=== PATIENT | female | born 1950 | race Caucasian/White ===

== ENCOUNTER → 2016-10-31 | Outpatient (CLI) | payer BC ==
[~2016-10-31] MED LIST: GLC500 PO; HYDC25 PO; LOTRIL; SIMV5TAB2 PO
== END | disposition home or self-care (01) ==
LOC: C.PAPS 14:38
PROVIDERS: ATTEND Obstetrics & Gynecology
DX: Z01.419 Encounter for gynecological examination (general) (routine) without abnormal findings (principal)

== ENCOUNTER → 2017-04-28 | Outpatient (CLI) | payer BC ==
--- NOTE | 2017-04-29 14:57 | MAMMOGRAPHY REPORT ---
BILATERAL DIGITAL SCREENING MAMMOGRAM TOMOSYNTHESIS WITH CAD: 04/28/2017 CLINICAL HISTORY: Routine screening. TECHNIQUE: Breast tomosynthesis in addition to standard 2D mammography was performed. Current study was also evaluated with a Computer Aided Detection (CAD) system. COMPARISON: Comparison is made to exams dated: 04/25/2015 mammogram, 11/04/2013 mammogram, 10/19/2012 mammogram, 11/08/2010 mammogram - [facility], 03/24/2008, and 04/23/2009 mammogram - [facility]. BREAST COMPOSITION: There are scattered areas of fibroglandular density in both breasts. FINDINGS: There is stable asymmetry in the medial right breast. A few benign rim calcifications and mild vascular calcifications in the breasts. No suspicious mass, architectural distortion or cluster of suspicious microcalcifications is seen. IMPRESSION: ACR BI-RADS CATEGORY 1: NEGATIVE There is no mammographic evidence of malignancy. A 1 year screening mammogram is recommended. The pa tient will receive written notification of the results. Approximately 10% of breast cancers are not detected with mammography. A negative mammographic report should not delay biopsy if a clinically suggestive mass is present. Bettina Fraga M.D. ay/:04/28/2017 16:56:14 Head Of Ict: Florian FELIZ(Francisco)(Larry), [facility] letter sent: Normal 1/2 BI-RADS Code: ACR BI-RADS Category 1: Negative
== END | disposition home or self-care (01) ==
LOC: C.MAMM 10:29
PROVIDERS: ATTEND Obstetrics & Gynecology
DX: Z12.31 Encounter for screening mammogram for malignant neoplasm of breast (principal)

== ENCOUNTER 2023-06-19 08:57 | Inpatient (IN) ==
--- NOTE | 2023-06-19 09:26 | Emergency Department Note ---
Impression & Plan Acute dyspnea, ESRD (end stage renal disease), Non-ST elevation IN (NSTEMI), Elevated brain natriuretic peptide (BNP) level, Pulmonary edema ED Provider Note HISTORY OF PRESENT ILLNESS: Patient is a 72-year-old female presenting with shortness of breath. Patient reports that she woke up this morning and was very short of breath. Reports she is only able to take a few steps before she has to sit down and rest. She reports that she drove herself to the hospital and when ambulating from the parking lot to the ER door she had to stop multiple times secondary to shortness of breath. Denies any DVT or PE history. She does not wear any supplemental oxygen at home. Reports that she has not had symptoms like this previously. She has noted that her bilateral ankles appear more swollen today than normal. She has a history of CKD stage V and reports that she is probably going to need dialysis soon. She denies any recent fevers or cough. Denies any chest pain with the shortness of breath. Denies any abdominal pain, nausea or vomiting ROS: as above PHYSICAL EXAM: Constitutional: Patient appears in no acute distress. HENT: Head: Normocephalic and atraumatic. Eyes: EOMI, PERRL Mouth/Throat: Mucous membranes moist. Neck: Trachea midline. Neck supple. Cardiovascular: RRR, No murmurs, rubs or gallops. Intact distal pulses. Pulmonary/Chest: No respiratory distress. Breath sounds clear and equal bilaterally. No wheezes or rales. Abdominal: Abdomen soft, no tenderness, rebound or guarding. Musculoskeletal: No tenderness or deformity noted. Trace edema to the bilateral ankles. Skin: Warm and dry. No rash, erythema, pallor or cyanosis Psychiatric: Appropriate mood and affect for situation. Neurological: Alert and keenly responsive. CN II-XII grossly intact, moving all extremities equally and fully. MDM: - Vitals signs showed hypertension and tachypnea. - History obtained via patient. Patient presents with shortness of breath. Patient reports that she woke up this morning was very short of breath. She was only able to take a few steps before becoming very winded and having to sit down. She also noted that her lower legs were very swollen. She has a history of CKD and is supposed to be transitioning to dialysis soon. Denies any recent fevers or cough. Denies any chest pain. - Chronic conditions affecting care: CKD; HTN; DM-2; anemia due to chronic kidney disease - Differential diagnoses include, but are not limited to: Congestive heart failure; acute coronary syndrome; COPD/asthma exacerbation; pulmonary edema; pulmonary embolism; pneumonia; pneumothorax; viral syndrome - Order placed for continuous cardiac monitoring. At this time, monitor showed rate of 66 bpm with normal sinus rhythm, per my interpretation. - External medical records reviewed. Nephrology visit note dated 05/20/2023 was reviewed. Patient is stage V CKD. She was started on sodium bicarb twice daily. No acute indication to start dialysis at that time. Plan for repeat CBC and renal panel in a month. - EKG interpreted by myself showed normal sinus rhythm. Rate 63 bpm. QT 442. No acute ischemic changes. - Laboratory workup interpreted by myself showed normal WBC; stable electrolytes; elevated anion gap (14); elevated BUN (62); worsening creatinine (Cr 6.85); elevated troponin (32.6 - likely in setting of ESRD); elevated BNP (1149) - VBG grossly normal - CXR showed evidence of pulmonary edema, per my interpretation - Respiratory viral panel negative - Discussed case with chairman of the board on-call, Dr. Bragg at 11:52 AM, given patient's worsening laboratory workup and presenting symptom of shortness of breath in the setting of fluid overload. He came and evaluated the patient and recommends admission to hospitalist service and has placed orders for hemodialysis for today. - Discussion was had with childcare aide about patient's case and need for admission - Hospitalist consulted for admission - Patient admitted to [facility] hospitalist service for further evaluation and management. ASSESSMENT AND PLAN: Diagnosis: Acute dyspnea; ESRD; elevated BNP; NSTEMI; pulmonary edema Plan: admit Past Med/Surg History Medical History (Updated 06/19/23 @ 12:44 by Cassi Beaver MD) Stage 5 chronic kidney disease not on chronic dialysis AV fistula right arm--per pt not currently using yet Periodontal pocket Carious teeth Vitamin D deficiency Anemia due to chronic kidney disease Sleep apnea Per 2009 polysomnography (per 02/2021 pulmonology note)- pt declined treatment or repeat study-NO DEVICE Diastolic CHF Anxiety Associated dyspnea per pulmonology Insulin-requiring or dependent type II diabetes mellitus Obesity Chronic kidney disease, stage 4 (severe) Secondary hyperparathyroidism of renal origin History of DVT (deep vein thrombosis) Multiple "small" DVTs (25+ years ago, 6 years ago) Fibroids Gout History of hypothyroidism HX-NO MEDS Hypercholesterolemia Hypertension Sensorineural hearing loss (SNHL) of both ears Surgical History S/P arteriovenous (AV) fistula creation RIGHT arm 03/27/21 @ [facility] Dr. Subramanian History of dental surgery History of surgery on arm Right Arm basilic vein transposition 2nd stage @ [facility] Dr. Subramanian 06/10/21 History of colonoscopy Family History Mother Diabetes Renal cell cancer Heart disease Colorectal cancer Hypertension Brother Diabetes Renal cell cancer Heart disease Lung cancer Hypertension Gallbladder disease Father Prostate cancer Heart disease Hypertension Grandmother (Maternal) Colorectal cancer Aunt Diabetes Other Alzheimer disease No family history of adverse response to anesthesia Denies family history of Ovarian cancer Myocardial infarction Breast cancer Social History Smoking Status: Never smoker Second Hand Exposure: No; Do You Dip or Chew Tobacco: No; Hx Alcohol Use: Yes Alcohol type: wine Alcohol Intake Frequency: Monthly or Less Hx Substance Use: No Preferred Language: Hong Konger Communication Ability: Effective Visual Impairment: Limited Hearing Ability: Hard of Hearing Job Spotter Required: No Beliefs That Will Affect Care: None marital status: Single Current Living Situation: Alone current occupational status: 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 How many Children do You have: 0 Feels Safe at Home: Yes Childhood Exposure to Second-Hand Smoke: No (very little ) Diet: diabetic caffeine: Yes (drinks iced tea every day, sometimes soda ) Dental Care, Regularly: Yes Physical Activity Frequency: 1-2 Times per Week Physical Activity Frequency Comment: weight training, walking Seatbelt Use: always Sunscreen Use: Yes (most times ) Assistive Devices: Glasses Allergies Allergies Allergy/AdvReac Type Severity Reaction Status Date / Time insect venom Allergy Intermediate Swelling Verified 06/19/23 11:57 adhesive tape Allergy Mild Rash Verified 06/19/23 11:57 dulaglutide [From Trulicity] AdvReac Mild Constipation, Verified 06/19/23 11:57 vomiting Home Meds Home Medications Medication Instructions Recorded Confirmed lancets (Accu-Chek Fastclix Lancet #50 ea 12/16/18 05/20/23 Drum) aspirin 81 mg chewable tablet 81 mg PO QAM 11/07/19 06/19/23 mecobalamin (vitamin B12) 1,000 1,000 mcg PO QAM 09/13/20 06/19/23 mcg chewable tablet (B12 Active) blood sugar diagnostic (Accu-Chek 10/15/21 05/20/23 SmartView Test Strips) cholecalciferol (vitamin D3) 62.5 62.5 mcg PO HS 06/06/22 06/19/23 mcg (2,500 unit) capsule insulin aspart U-100 100 unit/mL 14 unit subcut QAM PRN bg LEVELS 03/10/23 06/19/23 (3 mL) subcutaneous pen (Novolog FlexPen U-100 Insulin aspart) buspirone 7.5 mg tablet 7.5 mg PO DAILY PRN anxiety 06/19/23 06/19/23 calcitriol 0.5 mcg capsule 0 mcg PO DAILY 06/19/23 06/19/23 ferrous gluconate 324 mg (38 mg 324 mg PO BID 06/19/23 06/19/23 iron) tablet insulin degludec 100 unit/mL (3 8 - 14 unit subcut .BIDAFTERMEALS 06/19/23 06/19/23 mL) subcutaneous pen (Tresiba PRN BG levels FlexTouch U-100 insulin) sevelamer HCl 800 mg tablet 0 mg PO TID 06/19/23 06/19/23 triamcinolone acetonide 0.1 % 1 applic topical DAILY 06/19/23 06/19/23 topical ointment Previous Rx's Medication Instructions Recorded pen needle, diabetic 32 gauge x #100 ea 09/13/20" (BD Ultra-Fine Nicki Pen Needle) FreeStyle Kvng 2 Aydlett (flash #1 ea 10/18/20 glucose scanning reader) metoprolol succinate 50 mg 50 mg PO QAM #90 tabs 07/22/22 tablet,extended release 24 hr flash glucose sensor (FreeStyle #2 ea 12/16/22 Kvng 2 Sensor kit) sodium bicarbonate 650 mg tablet 650 mg PO BID #60 tabs 04/10/23 amlodipine 10 mg tablet 10 mg PO QAM #90 tabs 06/16/23 hydralazine 25 mg tablet 25 mg PO BID #180 tabs 06/16/23 metoprolol succinate 100 mg 100 mg PO QAM #90 tabs 06/16/23 tablet,extended release 24 hr simvastatin 20 mg tablet 20 mg PO QPM #90 tabs 06/19/23 Results & Data (ED) Vital Signs Vital Signs - 24 hr 06/19/23 09:01 06/19/23 09:12 06/19/23 09:23 Temperature 36.4 C L Temperature Source Temporal Artery Scan Pulse Rate 66 62 Pulse Rate from SpO2 Sensor 63 Respiratory Rate 32 H 19 Respiratory Effort / Characteristics Spontaneous Blood Pressure 180/85 H Blood Pressure Mean 116 Pulse Oximetry 99 97 98 Oxygen Delivery Method Room Air Room Air Sepsis Recent Fever Within 48 Hours No Sepsis New/Unexplained Change in Mental Status N/A Sepsis Action Taken by Nursing No Action Required 06/19/23 09:30 06/19/23 09:38 06/19/23 09:41 Temperature Temperature Source Pulse Rate 64 64 Pulse Rate from SpO2 Sensor 63 Respiratory Rate 26 H Respiratory Effort / Characteristics Blood Pressure Blood Pressure Mean Pulse Oximetry 97 96 Oxygen Delivery Method Room Air Sepsis Recent Fever Within 48 Hours Sepsis New/Unexplained Change in Mental Status Sepsis Action Taken by Nursing 06/19/23 10:00 06/19/23 10:30 06/19/23 11:00 Temperature Temperature Source Pulse Rate 60 60 61 Pulse Rate from SpO2 Sensor 60 60 62 Respiratory Rate 18 22 24 Respiratory Effort / Characteristics Blood Pressure Blood Pressure Mean Pulse Oximetry 94 94 93 Oxygen Delivery Method Room Air Sepsis Recent Fever Within 48 Hours Sepsis New/Unexplained Change in Mental Status Sepsis Action Taken by Nursing 06/19/23 11:16 06/19/23 11:16 06/19/23 11:17 Temperature Temperature Source Pulse Rate 65 Pulse Rate from SpO2 Sensor Respiratory Rate 28 H Respiratory Effort / Characteristics Blood Pressure 169/119 H 187/105 H Blood Pressure Mean 138 149 Pulse Oximetry Oxygen Delivery Method Sepsis Recent Fever Within 48 Hours Sepsis New/Unexplained Change in Mental Status Sepsis Action Taken by Nursing 06/19/23 11:17 06/19/23 11:30 06/19/23 11:31 Temperature Temperature Source Pulse Rate 66 64 Pulse Rate from SpO2 Sensor Respiratory Rate 32 H 30 H Respiratory Effort / Characteristics Blood Pressure 193/66 H Blood Pressure Mean 111 Pulse Oximetry Oxygen Delivery Method Sepsis Recent Fever Within 48 Hours Sepsis New/Unexplained Change in Mental Status Sepsis Action Taken by Nursing 06/19/23 11:31 06/19/23 12:00 06/19/23 12:00 Temperature Temperature Source Pulse Rate 65 64 Pulse Rate from SpO2 Sensor Respiratory Rate 25 H 32 H Respiratory Effort / Characteristics Blood Pressure 181/108 H Blood Pressure Mean 139 Pulse Oximetry Oxygen Delivery Method Sepsis Recent Fever Within 48 Hours Sepsis New/Unexplained Change in Mental Status Sepsis Action Taken by Nursing 06/19/23 12:30 06/19/23 12:31 06/19/23 12:31 Temperature Temperature Source Pulse Rate 63 66 Pulse Rate from SpO2 Sensor 72 Respiratory Rate 30 H 21 Respiratory Effort / Characteristics Blood Pressure 166/63 H Blood Pressure Mean 90 Pulse Oximetry 93 Oxygen Delivery Method Room Air Sepsis Recent Fever Within 48 Hours Sepsis New/Unexplained Change in Mental Status Sepsis Action Taken by Nursing Laboratory Data 06/19/23 09:35 06/19/23 09:35 Lab Results 06/19/23 06/19/23 06/19/23 Range/Units 09:35 10:23 10:29 WBC 6.59 (4.8-10.8) K/ul RBC 2.90 L (4.20-5.40) M/uL Hgb 9.0 L (12.0-16.0) g/dl Hct 27.3 L (37.0-47.0) % MCV 94.1 (80.0-100.0) fL MCH 31.0 (25.0-34.0) pg MCHC 33.0 (32.0-36.0) g/dL RDW Std Deviation 43.7 (36.4-46.3) fL RDW Coeff of Poornima 12.7 (11.5-14.5) % Plt Count 280 (130-400) K/uL MPV 11.7 (9.4-12.4) fL Immature Gran % (Auto) 0.5 % Neut % (Auto) 71.5 % Lymph % (Auto) 15.2 % [place] % (Auto) 7.6 % Eos % (Auto) 4.1 % Baso % (Auto) 1.1 % Neut # (Auto) 4.72 (1.40-6.50) K/uL Lymph # (Auto) 1.00 L (1.20-3.40) K/uL [place] # (Auto) 0.50 (0.11-0.59) K/uL Eos # (Auto) 0.27 (0.00-0.50) K/uL Baso # (Auto) 0.07 (0.00-0.20) K/uL Immature Gran # (Auto) 0.03 (0.01-0.20) K/uL PT 10.7 (9.0-12.0) Seconds INR 1.0 (0.9-1.1) VBG pH 7.37 (7.36-7.41) VBG pCO2 36 L (38-50) mmHg VBG pO2 50 mmHg VBG HCO3 21 mmol/L VBG O2 Saturation 84.8 % VBG Base Excess -3.9 mEq/L Sodium 140 (136-145) mmol/L Potassium 3.6 (3.5-5.1) mmol/L Chloride 106 (98-107) mmol/L Carbon Dioxide 20 L (21-32) mmol/L Anion Gap 14 H (3-11) BUN 62 H (6-23) mg/dl Creatinine 6.85 H* (0.6-1.2) mg/dl Est Cr Clr Drug Dosing 7.4 ml/min Est GFR ( Amer) 6.3 ml/min Est GFR (Non-Af Amer) 5.4 ml/min BUN/Creatinine Ratio 9.1 L (10-20) Glucose 202 H (70-99(Fasting)) mg/dl Calcium 10.5 H (8.6-10.3) mg/dl Magnesium 2.2 (1.7-2.4) mg/dl Total Bilirubin 0.5 (0.2-1.0) mg/dl AST 10 L (13-39) U/L ALT 6 L (7-52) U/L Alkaline Phosphatase 51 (34-104) U/L Troponin I High Sens 32.6 H (0-14) pg/ml B-Natriuretic Peptide 1149 H (0-100) pg/ml Total Protein 7.0 (6.0-8.3) gm/dl Albumin 3.7 (3.4-5.0) gm/dl Globulin 3.3 (2.5-4.0) gm/dl Albumin/Globulin Ratio 1.1 (0.9-2) Adenovirus (PCR) Not Detected (NotDetected) B. pertussis DNA (PCR) Not Detected (NotDetected) B.parapertussis DNA PCR Not Detected (NotDetected) C. pneumoniae DNA (PCR) Not Detected (NotDetected) Coronavirus OC43 (PCR) Not Detected (NotDetected) Coronavirus HKU1 (PCR) Not Detected (NotDetected) Coronavirus 229E (PCR) Not Detected (NotDetected) SARS-CoV-2 (PCR) Not Detected (NotDetected) Coronavirus NL63 (PCR) Not Detected (NotDetected) Human Metapneumovir PCR Not Detected (NotDetected) Influenza Type A (PCR) Not Detected (NotDetected) Influenza Type B (PCR) Not Detected (NotDetected) M. pneumoniae (PCR) Not Detected (NotDetected) Parainfluenza 1 (PCR) Not Detected (NotDetected) Parainfluenza 2 (PCR) Not Detected (NotDetected) Parainfluenza 3 (PCR) Not Detected (NotDetected) Parainfluenza 4 (PCR) Not Detected (NotDetected) RSV (PCR) Not Detected (NotDetected) Entero/Rhino (PCR) Not Detected (NotDetected) 06/19/23 Range/Units 11:55 WBC (4.8-10.8) K/ul RBC (4.20-5.40) M/uL Hgb (12.0-16.0) g/dl Hct (37.0-47.0) % MCV (80.0-100.0) fL MCH (25.0-34.0) pg MCHC (32.0-36.0) g/dL RDW Std Deviation (36.4-46.3) fL RDW Coeff of Poornima (11.5-14.5) % Plt Count (130-400) K/uL MPV (9.4-12.4) fL Immature Gran % (Auto) % Neut % (Auto) % Lymph % (Auto) % [place] % (Auto) % Eos % (Auto) % Baso % (Auto) % Neut # (Auto) (1.40-6.50) K/uL Lymph # (Auto) (1.20-3.40) K/uL [place] # (Auto) (0.11-0.59) K/uL Eos # (Auto) (0.00-0.50) K/uL Baso # (Auto) (0.00-0.20) K/uL Immature Gran # (Auto) (0.01-0.20) K/uL PT (9.0-12.0) Seconds INR (0.9-1.1) VBG pH (7.36-7.41) VBG pCO2 (38-50) mmHg VBG pO2 mmHg VBG HCO3 mmol/L VBG O2 Saturation % VBG Base Excess mEq/L Sodium (136-145) mmol/L Potassium (3.5-5.1) mmol/L Chloride (98-107) mmol/L Carbon Dioxide (21-32) mmol/L Anion Gap (3-11) BUN (6-23) mg/dl Creatinine (0.6-1.2) mg/dl Est Cr Clr Drug Dosing ml/min Est GFR ( Amer) ml/min Est GFR (Non-Af Amer) ml/min BUN/Creatinine Ratio (10-20) Glucose (70-99(Fasting)) mg/dl Calcium (8.6-10.3) mg/dl Magnesium (1.7-2.4) mg/dl Total Bilirubin (0.2-1.0) mg/dl AST (13-39) U/L ALT (7-52) U/L Alkaline Phosphatase (34-104) U/L Troponin I High Sens 32.5 H (0-14) pg/ml B-Natriuretic Peptide (0-100) pg/ml Total Protein (6.0-8.3) gm/dl Albumin (3.4-5.0) gm/dl Globulin (2.5-4.0) gm/dl Albumin/Globulin Ratio (0.9-2) Adenovirus (PCR) (NotDetected) B. pertussis DNA (PCR) (NotDetected) B.parapertussis DNA PCR (NotDetected) C. pneumoniae DNA (PCR) (NotDetected) Coronavirus OC43 (PCR) (NotDetected) Coronavirus HKU1 (PCR) (NotDetected) Coronavirus 229E (PCR) (NotDetected) SARS-CoV-2 (PCR) (NotDetected) Coronavirus NL63 (PCR) (NotDetected) Human Metapneumovir PCR (NotDetected) Influenza Type A (PCR) (NotDetected) Influenza Type B (PCR) (NotDetected) M. pneumoniae (PCR) (NotDetected) Parainfluenza 1 (PCR) (NotDetected) Parainfluenza 2 (PCR) (NotDetected) Parainfluenza 3 (PCR) (NotDetected) Parainfluenza 4 (PCR) (NotDetected) RSV (PCR) (NotDetected) Entero/Rhino (PCR) (NotDetected) Imaging Data Radiologist's Impression: Chest X-Ray 06/19/23 09:13 XR chest 1V portable HISTORY: Dyspnea COMPARISON: Chest 01/07/2021. FINDINGS: No pneumothorax. The heart is mildly enlarged. There are low lung volumes. There is perihilar interstitial/vascular thickening suggestive of mild pulmonary edema. There is a trace right pleural effusion. Small patchy bibasilar densities are suggested. IMPRESSION: 1. Cardiomegaly with mild interstitial pulmonary edema and a trace right pleural effusion. 2. Small patchy bibasilar densities favor atelectasis. A superimposed pneumonia would be difficult to exclude. ACT 112: Negative or not required by law. Electronically signed by: David Solorzano M.D. 06/19/2023 10:13 AM Discharge Plan Visit Data Chief Complaint: Shortness of Breath/Dyspnea Stated Complaint: HYPERVENTALATING, RENAL DISEASE ED Provider: Cassi Beaver Discharge Problem: Acute dyspnea, ESRD (end stage renal disease), Non-ST elevation IN (NSTEMI), Elevated brain natriuretic peptide (BNP) level, Pulmonary edema Forms Stand Alone Forms: [facility] Prescriptions Prescriptions: No Action (DME) FreeStyle Kvng 2 Aydlett Misc See Rx Instructions .ROUTE .MEDSUPPLY Qty: 1 0RF Rx Instructions: Use to monitor blood sugars daily (DME) FreeStyle Kvng 2 Sensor Kit See Rx Instructions miscellaneous .MEDSUPPLY Qty: 2 11RF Rx Instructions: Change every 14 days. sodium bicarbonate 650 mg tablet 650 mg PO BID Qty: 60 3RF hydralazine 25 mg tablet 25 mg PO BID Qty: 180 3RF amlodipine 10 mg tablet 10 mg PO QAM Qty: 90 3RF metoprolol succinate 100 mg tablet extended release 24 hr 100 mg PO QAM Qty: 90 3RF Rx Instructions: in addition to 50mg for a total of 150mg daily simvastatin 20 mg tablet 20 mg PO QPM Qty: 90 3RF insulin aspart U-100 [Novolog FlexPen U-100 Insulin] 100 unit/mL (3 mL) insulin pen 14 unit subcut QAM PRN (Reason: bg LEVELS) metoprolol succinate 50 mg tablet extended release 24 hr 50 mg PO QAM Qty: 90 3RF Rx Instructions: TAKE 1 TABLET BY MOUTH EVERY DAY with 100mg dose for total of 150mg cholecalciferol (vitamin D3) 62.5 mcg (2,500 unit) capsule 62.5 mcg PO HS B12 Active 1,000 mcg tablet,chewable 1,000 mcg PO QAM (DME) pen needle, diabetic [BD Ultra-Fine Nicki Pen Needle] 32 gauge x 5/32" needle See Rx Instructions miscellaneous .MEDSUPPLY Qty: 100 5RF Rx Instructions: Use to inject daily (DME) lancets [Accu-Chek Fastclix Lancet Drum] misc See Dose Instructions .ROUTE .MEDSUPPLY Qty: 50 Rx Instructions: As directed aspirin 81 mg tablet,chewable 81 mg PO QAM (DME) Accu-Chek SmartView Test Strip Strip See Rx Instructions .ROUTE .MEDSUPPLY Dose Instruction: As directed Rx Instructions: USE 1 TEST STRIP DAILY PRN calcitriol 0.5 mcg capsule 0 mcg PO DAILY Rx Instructions: Per patient they are now taking 0.5mcg by mouth once daily, PCP is aware. triamcinolone acetonide 0.1 % ointment 1 applic TOPICAL DAILY sevelamer HCl 800 mg tablet 0 mg PO TID Rx Instructions: must administer with a meal/food. Per patient, she hasn't started this medication yet. Original directions. 800mg by mouth TID w/ meals buspirone 7.5 mg tablet 7.5 mg PO DAILY PRN (Reason: anxiety) ferrous gluconate 324 mg (38 mg iron) tablet 324 mg PO BID insulin degludec [Tresiba FlexTouch U-100] 100 unit/mL (3 mL) insulin pen 8 - 14 unit subcut .BIDAFTERMEALS PRN (Reason: BG levels) Referrals Referrals: Unruly Trujillo DO [Primary Care Provider] -
[2023-06-19 10:03] LABS: Basophils # (auto) 0.07 K/uL (0.00-0.20); Basophils % (auto) 1.1 %; Eosinophils # (auto) 0.27 K/uL (0.00-0.50); Eosinophils % (auto) 4.1 %; Hematocrit (blood only) 27.3 % (37.0-47.0); Immature Granulocytes # (auto) 0.03 K/uL (0.01-0.20); Immature Granulocytes % (auto) 0.5 %; Lymphocytes % (auto) 15.2 %; Mean Corpuscular Volume 94.1 fL (80.0-100.0); Mean Platelet Volume 11.7 fL (9.4-12.4); Monocytes % (auto) 7.6 %; Neutrophils # (auto) 4.72 K/uL (1.40-6.50); Neutrophils % (auto) 71.5 %; Platelet Count 280 K/uL (130-400); RDW Coefficient of Variation 12.7 % (11.5-14.5); RDW Standard Deviation 43.7 fL (36.4-46.3); White Blood Count 6.59 K/ul (4.8-10.8)
[2023-06-19 10:14] LABS: Albumin Globulin Ratio 1.1 (0.9-2); Albumin Level 3.7 gm/dl (3.4-5.0); BUN Creatinine Ratio 9.1 (10-20); Bilirubin,Total 0.5 mg/dl (0.2-1.0); Calcium 10.5 mg/dl (8.6-10.3); Creatinine Clr Calc Pharmacy 7.4 ml/min; Est GFR (African American) 6.3 ml/min; Est GFR (Non-African American) 5.4 ml/min; Globulin 3.3 gm/dl (2.5-4.0); Magnesium 2.2 mg/dl (1.7-2.4); Potassium 3.6 mmol/L (3.5-5.1)
--- NOTE | 2023-06-19 10:15 | XRay Report ---
XR chest 1V portable HISTORY: Dyspnea COMPARISON: Chest 01/07/2021. FINDINGS: No pneumothorax. The heart is mildly enlarged. There are low lung volumes. There is perihil ar interstitial/vascular thickening suggestive of mild pulmonary edema. There is a trace right pleura l effusion. Small patchy bibasilar densities are suggested. IMPRESSION: 1. Cardiomegaly with mild interstitial pulmonary edema and a trace right pleural effusion. 2. Small patchy bibasilar densities favor atelectasis. A superimposed pneumonia would be difficult to exclude. ACT 112: Negative or not required by law. Electronically signed by: David Solorzano M.D. 06/19/2023 10:13 AM
[2023-06-19 10:19] LABS: Troponin I High Sensitivity 32.6 pg/ml (0-14)
[2023-06-19 10:23] LABS: Prothrombin Time 10.7 Seconds (9.0-12.0)
[2023-06-19 10:37] LABS: Adenovirus PCR Not Detected (NotDetected); Bordetella parapertussis PCR Not Detected (NotDetected); Bordetella pertussis PCR Not Detected (NotDetected); Chlamydia pneumoniae PCR Not Detected (NotDetected); Coronavirus 229E PCR Not Detected (NotDetected); Coronavirus CoV-2 (COVID19)PCR Not Detected (NotDetected); Coronavirus HKU1 PCR Not Detected (NotDetected); Coronavirus NL63 PCR Not Detected (NotDetected); Coronavirus OC43PCR Not Detected (NotDetected); Human Metapneumovirus PCR Not Detected (NotDetected); Influenza A PCR Not Detected (NotDetected); Influenza B PCR Not Detected (NotDetected); Mycoplasma pneumoniae PCR Not Detected (NotDetected); Parainfluenza Virus 1 PCR Not Detected (NotDetected); Parainfluenza Virus 2 PCR Not Detected (NotDetected); Parainfluenza Virus 3 PCR Not Detected (NotDetected); Parainfluenza Virus 4 PCR Not Detected (NotDetected); Respiratory Syncytial VirusPCR Not Detected (NotDetected); Rhinovirus/Enterovirus PCR Not Detected (NotDetected)
[2023-06-19 10:52] LABS: Base Excess VBG -3.9 mEq/L; HCO3 VBG 21 mmol/L; Oxygen Saturation VBG 84.8 %; PCO2 VBG 36 mmHg (38-50); PO2 VBG 50 mmHg; pH VBG 7.37 (7.36-7.41)
[2023-06-19] MEDS ORDERED: GLUCOSE 40% GEL 15 GM TUBE PO PRN (12:57)
[2023-06-19] MEDS ORDERED: ACETAMINOPHEN 325 MG TAB PO PRN (12:57)
[2023-06-19] MEDS ORDERED: DEXTROSE 50% 50 ML SYRINGE IV PRN (12:57)
[2023-06-19] MEDS ORDERED: GLUCOSE 10 TAB/TUBE PO PRN (12:57)
[2023-06-19] MEDS ORDERED: CARBOHYDRATES FOR HYPOGLYCEMIA PO PRN (12:57)
[2023-06-19] MEDS ORDERED: GLUCAGON FOR INJ 1 MG VIAL SQ PRN (12:57)
--- NOTE | 2023-06-19 13:20 | History & Physical Report ---
Date of Service June 19, 2023 Assessment & Plan (1) Acute kidney failure: Plan Assessment: 1. Acute kidney injury in the setting of CKD stage V now progressing to end- stage renal disease. Nephrology been consulted. Initiation of hemodialysis to take place this afternoon orders have been written by nephrology we appreciate their input. 2. Volume overload on the basis of end-stage renal disease with bilateral small pleural effusions with pulmonary edema. Hemodialysis will address volume control. 3. Diabetes mellitus type 2 insulin requiring sliding scale coverage has been ordered as well as the basal insulin she is on at home twice daily which we will continue at a lower dose and titrate as needed for glycemic control. 4. Morbid obesity. 5. Dyslipidemia. 6. Obstructive sleep apnea currently not treated. 7. History of DVT 25 years ago. DVT prophylaxis has been ordered both mechanical and chemical in the form of heparin SQ twice daily. 8. Essential hypertension continue continue same home meds. 9. Dyslipidemia continue statin therapy from home Plan: As described above. Please refer to orders for further planning. I would anticipate probable daily dialysis for several treatments and then transition to 3 times weekly prior to discharge. History of Present Illness Chief Complaint: Increasing shortness of breath and edema. Primary Care Provider: Unruly Trujillo DO This is a pleasant 72-year-old female with stage V kidney disease who has been approaching end-stage renal disease. Over the last 24 hours she has had increasing shortness of breath and edema in her lower extremities. She presented the ER today for further evaluation and treatment. In the ER she found to have a worsening BUN and creat at 62 and 6.85 respectively with a normal potassium of 3.6. EKG was reassuring troponins were negative x 2. Chest x-ray showed worsening pulmonary edema with dependent small bilateral pleural effusions. Course in the ER consultation was obtained with her manager urology who evaluated the patient in the ER and plans to initiate hemodialysis later this afternoon via her right AV fistula which has been previously placed. Allergies Allergy/AdvReac Type Severity Reaction Status Date / Time insect venom Allergy Intermediate Swelling Verified 06/19/23 11:57 adhesive tape Allergy Mild Rash Verified 06/19/23 11:57 [facility] AdvReac Mild Constipation, Verified 06/19/23 11:57 vomiting Home Medications Medication Instructions Recorded Confirmed Type lancets (Accu-Chek Fastclix Lancet #50 ea 12/16/18 05/20/23 History Drum) aspirin 81 mg chewable tablet 81 mg PO QAM 11/07/19 06/19/23 History mecobalamin (vitamin B12) 1,000 1,000 mcg PO QAM 09/13/20 06/19/23 History mcg chewable tablet (B12 Active) pen needle, diabetic 32 gauge x #100 ea 09/13/20 05/20/23 Rx 32" (BD Ultra-Fine Nicki Pen Needle) FreeStyle Kvng 2 [place] (flash #1 ea 10/18/20 05/20/23 Rx glucose scanning reader) blood sugar diagnostic (Accu-Chek 10/15/21 05/20/23 History SmartView Test Strips) cholecalciferol (vitamin D3) 62.5 62.5 mcg PO HS 06/06/22 06/19/23 History mcg (2,500 unit) capsule metoprolol succinate 50 mg 50 mg PO QAM #90 tabs 07/22/22 06/19/23 Rx tablet,extended release 24 hr flash glucose sensor (FreeStyle #2 ea 12/16/22 05/20/23 Rx Kvng 2 Sensor kit) insulin aspart U-100 100 unit/mL 14 unit subcut QAM PRN bg LEVELS 03/10/23 06/19/23 History (3 mL) subcutaneous pen (Novolog FlexPen U-100 Insulin aspart) sodium bicarbonate 650 mg tablet 650 mg PO BID #60 tabs 04/10/23 06/19/23 Rx amlodipine 10 mg tablet 10 mg PO QAM #90 tabs 06/16/23 06/19/23 Rx hydralazine 25 mg tablet 25 mg PO BID #180 tabs 06/16/23 06/19/23 Rx metoprolol succinate 100 mg 100 mg PO QAM #90 tabs 06/16/23 06/19/23 Rx tablet,extended release 24 hr buspirone 7.5 mg tablet 7.5 mg PO DAILY PRN anxiety 06/19/23 06/19/23 History calcitriol 0.5 mcg capsule 0 mcg PO DAILY 06/19/23 06/19/23 History ferrous gluconate 324 mg (38 mg 324 mg PO BID 06/19/23 06/19/23 History iron) tablet insulin degludec 100 unit/mL (3 8 - 14 unit subcut .BIDAFTERMEALS 06/19/23 History mL) subcutaneous pen (Tresiba PRN BG levels FlexTouch U-100 insulin) sevelamer HCl 800 mg tablet 0 mg PO TID 06/19/23 06/19/23 History simvastatin 20 mg tablet 20 mg PO QPM #90 tabs 06/19/23 06/19/23 Rx triamcinolone acetonide 0.1 % 1 applic topical DAILY 06/19/23 06/19/23 History topical ointment Past Med/Surg History Medical History (Updated 06/19/23 @ 13:16 by Trent Summers, PhD, DO) Stage 5 chronic kidney disease not on chronic dialysis AV fistula right arm--per pt not currently using yet Periodontal pocket Carious teeth Vitamin D deficiency Anemia due to chronic kidney disease Sleep apnea Per 2009 polysomnography (per 02/2021 pulmonology note)- pt declined treatment or repeat study-NO DEVICE Diastolic CHF Anxiety Associated dyspnea per pulmonology Insulin-requiring or dependent type II diabetes mellitus Obesity Chronic kidney disease, stage 4 (severe) Secondary hyperparathyroidism of renal origin History of DVT (deep vein thrombosis) Multiple "small" DVTs (25+ years ago, 6 years ago) Fibroids Gout History of hypothyroidism HX-NO MEDS Hypercholesterolemia Hypertension Sensorineural hearing loss (SNHL) of both ears Surgical History S/P arteriovenous (AV) fistula creation RIGHT arm 03/27/21 @ [facility]. Subramanian History of dental surgery History of surgery on arm Right Arm basilic vein transposition 2nd stage @ [facility] Dr. Subramanian 06/10/21 History of colonoscopy Family History Mother Diabetes Renal cell cancer Heart disease Colorectal cancer Hypertension Brother Diabetes Renal cell cancer Heart disease Lung cancer Hypertension Gallbladder disease Father Prostate cancer Heart disease Hypertension Grandmother (Maternal) Colorectal cancer Aunt Diabetes Other Alzheimer disease No family history of adverse response to anesthesia Denies family history of Ovarian cancer Myocardial infarction Breast cancer Social History Smoking Status: Never smoker Second Hand Exposure: No; Do You Dip or Chew Tobacco: No; Hx Alcohol Use: Yes Alcohol type: wine Alcohol Intake Frequency: Monthly or Less Hx Substance Use: No Preferred Language: Scottish Communication Ability: Effective Visual Impairment: Limited Hearing Ability: Hard of Hearing Designated Broker Required: No Beliefs That Will Affect Care: None marital status: Single Current Living Situation: Alone current occupational status: retired 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 How many Children do You have: 0 Feels Safe at Home: Yes Childhood Exposure to Second-Hand Smoke: No (very little ) Diet: diabetic caffeine: Yes (drinks iced tea every day, sometimes soda ) Dental Care, Regularly: Yes Physical Activity Frequency: 1-2 Times per Week Physical Activity Frequency Comment: weight training, walking Seatbelt Use: always Sunscreen Use: Yes (most times ) Assistive Devices: Glasses Review of Systems Review of Systems: A 10 point review of system was obtained and unless otherwise stated here or in history of present illness are negative and noncontributory to chief complaint. Physical Exam Physical Exam: In General: In general pleasant 72-year-old female who is alert and oriented x 3 at time my exam she interacts appropriately and pleasantly at the time of my examination. 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 She lives at home alone and has no children her brother is her next of kin that would speak for her in case of medical emergency etc. HEENT: Normocephalic atraumatic pupils are equal round and reactive to light bilaterally. No scleral icterus no conjunctival injection external auditory canals are patent septum is in the midline nose is without discharge oral mucosa is pink and moist without lesion. NECK: Supple no rigidity no lymphadenopathy no thyromegaly no carotid bruits no JVD no masses. HEART: Regular rate and rhythm I do not appreciate any ectopy or rub. No murmur. LUNGS: Fine rales bilaterally with diminished breath sounds in the bases. ABDOMEN: Obese, soft nontender, no rebound, no peritoneal signs, positive bowel sounds, no appreciable organomegaly. EXTREMITIES: Intact, no peripheral cyanosis, clubbing. There is bilateral dependent edema approximately 1-2+. Strength is 5 out of 5 in extremities x4, no pathological reflexes. AV fistula noted in the right upper extremity with good palpable thrill NEUROLOGICAL: Cranial nerves II through XII are grossly intact with no focal deficit elicited upon examination. No tremor. Results & Data Results & Data Vital Signs (Past 12 Hours) Vital Signs Temp Pulse Resp BP Pulse Ox O2 Del Method 06/19/23 12:31 66 21 93 Room Air 06/19/23 12:31 166/63 H 06/19/23 12:30 63 30 H 06/19/23 12:00 181/108 H 06/19/23 12:00 64 32 H 06/19/23 11:31 65 25 H 06/19/23 11:31 193/66 H 06/19/23 11:30 64 30 H 06/19/23 11:17 66 32 H 06/19/23 11:17 187/105 H 06/19/23 11:16 169/119 H 06/19/23 11:16 65 28 H 06/19/23 11:00 61 24 93 Room Air 06/19/23 10:30 60 22 94 06/19/23 10:00 60 18 94 06/19/23 09:41 96 Room Air 06/19/23 09:38 64 06/19/23 09:30 64 26 H 97 06/19/23 09:23 62 19 98 06/19/23 09:12 97 Room Air 06/19/23 09:01 36.4 C L 66 32 H 180/85 H 99 Room Air Code Status & VTE Plan Code Status Full code. I did discuss personally with the patient today and again she would want her younger brother Unruly to make decisions for her if she is unable to speak for herself. VTE Prophylaxis Plan VTE Prophylaxis will be ordered: Yes PG Care Time/CCT Total # of Minutes Spent Total Time Spent with Patient: Total time spent is greater than 50% in coordination of care (as documented) at patient's floor/unit and/or counseling patient: Coding Level of Care Code 48964 INT INP/OBS CARE 3/75MIN Diagnoses Acute kidney failure N17.9
--- NOTE | 2023-06-19 16:47 | Electrocardiogram Report ---
Test Reason : Blood Pressure : / mmHG Vent. Rate : 063 BPM Atrial Rate : 000 BPM P-R Int : 000 ms QRS Dur : 096 ms QT Int : 442 ms P-R-T Axes : 000 000 069 degrees QTc Int : 452 ms Sinus rhythm Nonspecific ST and T wave abnormality Abnormal ECG When compared with ECG of 07-JAN-2021 08:02, T wave inversion now evident in Lateral leads Confirmed by Jeyson Walton ([id number]) on 06/19/2023 4:47:07 PM Referred By: REFERRED SELF Confirmed By:Jorge Walton
--- NOTE | 2023-06-19 17:17 | Nephrology Consultation ---
Date of Consultation June 19, 2023 Assessment & Plan (1) ESRD (end stage renal disease): (2) Pulmonary edema: (3) Elevated brain natriuretic peptide (BNP) level: (4) Type 2 diabetes mellitus with obesity: Plan Discussed physical exam, laboratory and radiographic findings w/ Miss Guthrie this afternoon. She was aware of her advanced kidney dysfunction and agreeable to initiation of HD. AVF appeared to be mature for use. Orders were placed in EMR and HD RN notified. EMD physician notified of POC and has arranged hospitalist service to admit patient. Miss Guthrie and I also discussed outpatient HD. She would like to dialyze at [facility]. Order has been p laced to consult case management to set up outpatient dialysis. Shortly after admission HD RN notified me that both venous and arterial needles infiltrated. HD has been stopped and AVF site iced. Advised return to room. O2 can be provided tonight if needed. Thankfully electrolyte balance is acceptable. Will have staff interpreter attempt to recannulate AVF and provide dialysis tomorrow History of Present Illness Reason for Consultation: ESKD-D Attending Physician: Trent Summers, PhD, DO History of Present Illness Miss Guthrie is a 72 year old white female who is seen at the request of Dr. Beaver for initiation of [employer]. Information for the HPI is obtained from direct patient interview and review of the medical record. HPI is summarized as follows: Miss Guthrie had CKD stage G5/A3 (ESKD). Baseline Cr 3.5-4.0. Her primary Mental Retardation Nurse is Dr. Wing. CKD was attributed to DKD, microvascular disease. Biopsy was not performed due to relatively small kidney size and bilateral renal cysts. Patient underwent creation of R BC AVF 04/16 with transposition 06/18. She completed [employer] education session 01/18/23. Last Nephrology OV was 05/20. Patient was noted to have progressive rise in Cr to 5.8 but was euvolemic w/ normal electrolytes and no uremic symptoms. Over the last 24 hours Miss Guthrie has developed progressive ARREDONDO accompanied by LE swelling. She presented to [facility] where Cr was 6.85, BNP 1149, CXR revealed mild CHF w/ small bilateral pleural effusions. Respiratory biofire assay was negative. Admission was advised for initiation of HD. Allergies Allergy/AdvReac Type Severity Reaction Status Date / Time insect venom Allergy Intermediate Swelling Verified 06/19/23 11:57 adhesive tape Allergy Mild Rash Verified 06/19/23 11:57 dulaglutide [From [facility]] AdvReac Mild Constipation, Verified 06/19/23 11:57 vomiting Home Medications Medication Instructions Recorded Confirmed Type lancets (Accu-Chek Fastclix Lancet #50 ea 12/16/18 05/20/23 History Drum) aspirin 81 mg chewable tablet 81 mg PO QAM 11/07/19 06/19/23 History mecobalamin (vitamin B12) 1,000 1,000 mcg PO QAM 09/13/20 06/19/23 History mcg chewable tablet (B12 Active) pen needle, diabetic 32 gauge x #100 ea 09/13/20 05/20/23 Rx 32" (BD Ultra-Fine Nicki Pen Needle) FreeStyle Kvng 2 [place] (flash #1 ea 10/18/20 05/20/23 Rx glucose scanning reader) blood sugar diagnostic (Accu-Chek 10/15/21 05/20/23 History SmartView Test Strips) cholecalciferol (vitamin D3) 62.5 62.5 mcg PO HS 06/06/22 06/19/23 History mcg (2,500 unit) capsule metoprolol succinate 50 mg 50 mg PO QAM #90 tabs 07/22/22 06/19/23 Rx tablet,extended release 24 hr flash glucose sensor (FreeStyle #2 ea 12/16/22 05/20/23 Rx Kvng 2 Sensor kit) insulin aspart U-100 100 unit/mL 14 unit subcut QAM PRN bg LEVELS 03/10/23 06/19/23 History (3 mL) subcutaneous pen (Novolog FlexPen U-100 Insulin aspart) sodium bicarbonate 650 mg tablet 650 mg PO BID #60 tabs 04/10/23 06/19/23 Rx amlodipine 10 mg tablet 10 mg PO QAM #90 tabs 06/16/23 06/19/23 Rx hydralazine 25 mg tablet 25 mg PO BID #180 tabs 06/16/23 06/19/23 Rx metoprolol succinate 100 mg 100 mg PO QAM #90 tabs 06/16/23 06/19/23 Rx tablet,extended release 24 hr buspirone 7.5 mg tablet 7.5 mg PO DAILY PRN anxiety 06/19/23 06/19/23 History calcitriol 0.5 mcg capsule 0 mcg PO DAILY 06/19/23 06/19/23 History ferrous gluconate 324 mg (38 mg 324 mg PO BID 06/19/23 06/19/23 History iron) tablet insulin degludec 100 unit/mL (3 8 - 14 unit subcut .BIDAFTERMEALS 06/19/23 06/19/23 History mL) subcutaneous pen (Tresiba PRN BG levels FlexTouch U-100 insulin) sevelamer HCl 800 mg tablet 0 mg PO TID 06/19/23 06/19/23 History simvastatin 20 mg tablet 20 mg PO QPM #90 tabs 06/19/23 06/19/23 Rx triamcinolone acetonide 0.1 % 1 applic topical DAILY 06/19/23 06/19/23 History topical ointment Patient History Medical History Stage 5 chronic kidney disease not on chronic dialysis AV fistula right arm--per pt not currently using yet Periodontal pocket Carious teeth Vitamin D deficiency Anemia due to chronic kidney disease Sleep apnea Per 2009 polysomnography (per 02/2021 pulmonology note)- pt declined treatment or repeat study-NO DEVICE Diastolic CHF Anxiety Associated dyspnea per pulmonology Insulin-requiring or dependent type II diabetes mellitus Obesity Chronic kidney disease, stage 4 (severe) Secondary hyperparathyroidism of renal origin History of DVT (deep vein thrombosis) Multiple "small" DVTs (25+ years ago, 6 years ago) Fibroids Gout History of hypothyroidism HX-NO MEDS Hypercholesterolemia Hypertension Sensorineural hearing loss (SNHL) of both ears Surgical History S/P arteriovenous (AV) fistula creation RIGHT arm 03/27/21 @ [facility] Dr. Subramanian History of dental surgery History of surgery on arm Right Arm basilic vein transposition 2nd stage @ [facility] Dr. Subramanian 06/10/21 History of colonoscopy Family History Mother Diabetes Renal cell cancer Heart disease Colorectal cancer Hypertension Brother Diabetes Renal cell cancer Heart disease Lung cancer Hypertension Gallbladder disease Father Prostate cancer Heart disease Hypertension Grandmother (Maternal) Colorectal cancer Aunt Diabetes Other Alzheimer disease No family history of adverse response to anesthesia Denies family history of Ovarian cancer Myocardial infarction Breast cancer Social History Smoking Status: Never smoker Second Hand Exposure: No; Do You Dip or Chew Tobacco: No; Hx Alcohol Use: Yes Alcohol type: wine Alcohol Intake Frequency: Monthly or Less Hx Substance Use: No Preferred Language: Latvian Communication Ability: Effective Visual Impairment: Limited Hearing Ability: Hard of Hearing Body Service Team Member Required: No Beliefs That Will Affect Care: None marital status: Single Current Living Situation: Alone current occupational status: retired 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 How many Children do You have: 0 Feels Safe at Home: Yes Childhood Exposure to Second-Hand Smoke: No (very little ) Diet: diabetic caffeine: Yes (drinks iced tea every day, sometimes soda ) Dental Care, Regularly: Yes Physical Activity Frequency: 1-2 Times per Week Physical Activity Frequency Comment: weight training, walking Seatbelt Use: always Sunscreen Use: Yes (most times ) Assistive Devices: Glasses Review of Systems Constitutional: no fever Eyes: no problem reported Ear, Nose, Mouth, Throat: no problem reported Respiratory: no cough and no dyspnea Cardiovascular: no chest pain Gastrointestinal: no abdominal pain, no nausea, no vomiting and no diarrhea/loose stools Genitourinary: no dysuria and no hematuria Integumentary: no rash Neurologic: no problem reported Physical Exam Constitutional: not in distress (breathing comfortably on RA while at rest) Eyes: PERRL, conjunctivae normal, anicteric sclerae ENMT: external ear and nose normal, oropharynx normal Neck: trachea midline, no thyromegaly Respiratory: Auscultation: lungs clear to auscultation bilaterally and + diminished lung sounds (at bases bilaterally) Cardiovascular: Rate/Rhythm: regular rate and regular rhythm Heart Sounds: no murmur and no cardiac rub Extremities: + edema (1+ pretibial and pedal pitting edema) and + AV fistula (+ thrill and bruit) Gastrointestinal (Abdomen): normal bowel sounds, soft, nontender, no hepatosplenomegaly Skin: no rashes, warm and dry Neurologic: Speech / Cognition: normal speech and normal cognition Psychiatric: Affect: euthymic affect Results & Data Vital Signs (Past 12 Hours) Vital Signs Temp Pulse Resp BP Pulse Ox O2 Del Method 06/19/23 16:00 63 19 06/19/23 16:00 183/86 H 06/19/23 16:00 183/86 H 06/19/23 15:31 196/66 H 06/19/23 15:31 66 31 H 06/19/23 15:30 66 20 06/19/23 15:00 176/82 H 06/19/23 15:00 63 15 94 06/19/23 14:30 63 18 94 06/19/23 14:30 191/87 H 06/19/23 14:16 64 23 89 L 06/19/23 14:16 181/88 H 06/19/23 14:15 66 33 H 06/19/23 13:00 63 28 H 95 06/19/23 13:00 155/101 H 06/19/23 12:31 66 21 93 Room Air 06/19/23 12:31 166/63 H 06/19/23 12:30 63 30 H 06/19/23 12:00 181/108 H 06/19/23 12:00 64 32 H 06/19/23 11:31 65 25 H 06/19/23 11:31 193/66 H 06/19/23 11:30 64 30 H 06/19/23 11:17 66 32 H 06/19/23 11:17 187/105 H 06/19/23 11:16 169/119 H 06/19/23 11:16 65 28 H 06/19/23 11:00 61 24 93 Room Air 06/19/23 10:30 60 22 94 06/19/23 10:00 60 18 94 06/19/23 09:41 96 Room Air 06/19/23 09:38 64 06/19/23 09:30 64 26 H 97 06/19/23 09:23 62 19 98 06/19/23 09:12 97 Room Air 06/19/23 09:01 36.4 C L 66 32 H 180/85 H 99 Room Air Laboratory Results Laboratory Results WBC 6.59 K/ul (4.8-10.8) 06/19/23 09:35 RBC 2.90 M/uL (4.20-5.40) L 06/19/23 09:35 Hgb 9.0 g/dl (12.0-16.0) L 06/19/23 09:35 Hct 27.3 % (37.0-47.0) L 06/19/23 09:35 MCV 94.1 fL (80.0-100.0) 06/19/23 09:35 MCH 31.0 pg (25.0-34.0) 06/19/23 09:35 MCHC 33.0 g/dL (32.0-36.0) 06/19/23 09:35 RDW Std Deviation 43.7 fL (36.4-46.3) 06/19/23 09:35 RDW Coeff of Poornima 12.7 % (11.5-14.5) 06/19/23 09:35 Plt Count 280 K/uL (130-400) 06/19/23 09:35 MPV 11.7 fL (9.4-12.4) 06/19/23 09:35 Immature Gran % (Auto) 0.5 % 06/19/23 09:35 Neut % (Auto) 71.5 % 06/19/23 09:35 Lymph % (Auto) 15.2 % 06/19/23 09:35 [place] % (Auto) 7.6 % 06/19/23 09:35 Eos % (Auto) 4.1 % 06/19/23 09:35 Baso % (Auto) 1.1 % 06/19/23 09:35 Neut # (Auto) 4.72 K/uL (1.40-6.50) 06/19/23 09:35 Lymph # (Auto) 1.00 K/uL (1.20-3.40) L 06/19/23 09:35 [place] # (Auto) 0.50 K/uL (0.11-0.59) 06/19/23 09:35 Eos # (Auto) 0.27 K/uL (0.00-0.50) 06/19/23 09:35 Baso # (Auto) 0.07 K/uL (0.00-0.20) 06/19/23 09:35 Immature Gran # (Auto) 0.03 K/uL (0.01-0.20) 06/19/23 09:35 PT 10.7 Seconds (9.0-12.0) 06/19/23 09:35 INR 1.0 (0.9-1.1) 06/19/23 09:35 VBG pH 7.37 (7.36-7.41) 06/19/23 10:29 VBG pCO2 36 mmHg (38-50) L 06/19/23 10:29 VBG pO2 50 mmHg 06/19/23 10:29 VBG HCO3 21 mmol/L 06/19/23 10:29 VBG O2 Saturation 84.8 % 06/19/23 10:29 VBG Base Excess -3.9 mEq/L 06/19/23 10:29 Sodium 140 mmol/L (136-145) 06/19/23 09:35 Potassium 3.6 mmol/L (3.5-5.1) 06/19/23 09:35 Chloride 106 mmol/L (98-107) 06/19/23 09:35 Carbon Dioxide 20 mmol/L (21-32) L 06/19/23 09:35 Anion Gap 14 (3-11) H 06/19/23 09:35 BUN 62 mg/dl (6-23) H 06/19/23 09:35 Creatinine 6.85 mg/dl (0.6-1.2) H* 06/19/23 09:35 Est Cr Clr Drug Dosing 7.4 ml/min 06/19/23 09:35 Est GFR ( Amer) 6.3 ml/min 06/19/23 09:35 Est GFR (Non-Af Amer) 5.4 ml/min 06/19/23 09:35 BUN/Creatinine Ratio 9.1 (10-20) L 06/19/23 09:35 Glucose 202 mg/dl (70-99(Fasting)) H 06/19/23 09:35 Calcium 10.5 mg/dl (8.6-10.3) H 06/19/23 09:35 Magnesium 2.2 mg/dl (1.7-2.4) 06/19/23 09:35 Total Bilirubin 0.5 mg/dl (0.2-1.0) 06/19/23 09:35 AST 10 U/L (13-39) L 06/19/23 09:35 ALT 6 U/L (7-52) L 06/19/23 09:35 Alkaline Phosphatase 51 U/L (34-104) 06/19/23 09:35 Troponin I High Sens 32.5 pg/ml (0-14) H 06/19/23 11:55 B-Natriuretic Peptide 1149 pg/ml (0-100) H 06/19/23 10:23 Total Protein 7.0 gm/dl (6.0-8.3) 06/19/23 09:35 Albumin 3.7 gm/dl (3.4-5.0) 06/19/23 09:35 Globulin 3.3 gm/dl (2.5-4.0) 06/19/23 09:35 Albumin/Globulin Ratio 1.1 (0.9-2) 06/19/23 09:35 Adenovirus (PCR) Not Detected (NotDetected) 06/19/23 09:35 B. pertussis DNA (PCR) Not Detected (NotDetected) 06/19/23 09:35 B.parapertussis DNA PCR Not Detected (NotDetected) 06/19/23 09:35 C. pneumoniae DNA (PCR) Not Detected (NotDetected) 06/19/23 09:35 Coronavirus OC43 (PCR) Not Detected (NotDetected) 06/19/23 09:35 Coronavirus HKU1 (PCR) Not Detected (NotDetected) 06/19/23 09:35 Coronavirus 229E (PCR) Not Detected (NotDetected) 06/19/23 09:35 SARS-CoV-2 (PCR) Not Detected (NotDetected) 06/19/23 09:35 Coronavirus NL63 (PCR) Not Detected (NotDetected) 06/19/23 09:35 Human Metapneumovir PCR Not Detected (NotDetected) 06/19/23 09:35 Influenza Type A (PCR) Not Detected (NotDetected) 06/19/23 09:35 Influenza Type B (PCR) Not Detected (NotDetected) 06/19/23 09:35 M. pneumoniae (PCR) Not Detected (NotDetected) 06/19/23 09:35 Parainfluenza 1 (PCR) Not Detected (NotDetected) 06/19/23 09:35 Parainfluenza 2 (PCR) Not Detected (NotDetected) 06/19/23 09:35 Parainfluenza 3 (PCR) Not Detected (NotDetected) 06/19/23 09:35 Parainfluenza 4 (PCR) Not Detected (NotDetected) 06/19/23 09:35 RSV (PCR) Not Detected (NotDetected) 06/19/23 09:35 Entero/Rhino (PCR) Not Detected (NotDetected) 06/19/23 09:35 Impressions Chest X-Ray 06/19/23 09:13 XR chest 1V portable HISTORY: Dyspnea COMPARISON: Chest 01/07/2021. FINDINGS: No pneumothorax. The heart is mildly enlarged. There are low lung volumes. There is perihilar interstitial/vascular thickening suggestive of mild pulmonary edema. There is a trace right pleural effusion. Small patchy bibasilar densities are suggested. IMPRESSION: 1. Cardiomegaly with mild interstitial pulmonary edema and a trace right pleural effusion. 2. Small patchy bibasilar densities favor atelectasis. A superimposed pneumonia would be difficult to exclude. ACT 112: Negative or not required by law. Electronically signed by: David Solorzano M.D. 06/19/2023 10:13 AM PG Care Time/CCT Total # of Minutes Spent Total Time Spent with Patient: Total time spent is greater than 50% in coordination of care (as documented) at patient's floor/unit and/or counseling patient: Coding Level of Care Code 51241 IN/OBS CONSULT LVL 5,80M Diagnoses ESRD (end stage renal disease) N18.6 Pulmonary edema J81.1 Elevated brain natriuretic peptide (BNP) level R79.89 Type 2 diabetes mellitus with obesity E11.69; E66.9
[2023-06-19] MEDS: INSULIN ASPART PER UNIT CHARGE SC SCH (18:37)
[2023-06-19] MEDS: SEVELAMER HCL 800 MG TABLET PO SCH (19:33)
[2023-06-19] MEDS: FERROUS GLUCONATE 324 MG TAB PO SCH (21:30)
[2023-06-19] MEDS: CHOLECALCIFEROL 125 MCG (5,000 UNITS) TAB PO SCH (21:30)
[2023-06-19] MEDS: SODIUM BICARBONATE 650 MG TAB PO SCH (21:30)
[2023-06-19] MEDS: hydrALAZINE HCL 25 MG TAB PO SCH (21:31)
[2023-06-19] MEDS: SIMVASTATIN 20 MG TAB PO SCH (21:31)
[2023-06-19] MEDS: LANTUS PER UNIT CHARGE SQ SCH (21:35)
[2023-06-19] MEDS: HEPARIN SOD 5,000 UNIT/0.5 ML VIAL SQ SCH (21:52)
[2023-06-20] MEDS: busPIRone 7.5 MG TAB PO PRN (00:05)
[2023-06-20 06:39] LABS: Albumin Level 3.4 gm/dl (3.4-5.0); Bilirubin,Total 0.5 mg/dl (0.2-1.0); Calcium 10.2 mg/dl (8.6-10.3); Magnesium 2.2 mg/dl (1.7-2.4); Potassium 4.1 mmol/L (3.5-5.1)
[2023-06-20 06:48] LABS: Albumin Globulin Ratio 1.2 (0.9-2); BUN Creatinine Ratio 9.3 (10-20); Creatinine Clr Calc Pharmacy 7.2 ml/min; Est GFR (African American) 6.1 ml/min; Est GFR (Non-African American) 5.3 ml/min; Globulin 2.9 gm/dl (2.5-4.0); Total Protein 6.3 gm/dl (6.0-8.3)
[2023-06-20] MEDS ORDERED: SODIUM CHLORIDE 0.9% 1,000 ML IV PRN (07:00)
[2023-06-20] MEDS ORDERED: EPOETIN ALFA 10,000 UNITS/ML VIAL IV ONE (07:00)
--- NOTE | 2023-06-20 07:05 | XRay Report ---
SINGLE VIEW CHEST CLINICAL HISTORY: Congestive heart failure. FINDINGS: An AP, portable, upright chest radiograph is compared to study dated 06/19/2023. The heart i s enlarged noting atherosclerotic calcification of the thoracic aorta. There is pulmonary vascular co ngestion and mild interstitial edema. There are small pleural effusions with dependent consolidation. No pneumothorax is seen. The skeletal structures are osteopenic. The bony thorax is grossly intact. IMPRESSION: 1. Cardiomegaly with evidence of congestive failure. This is similar to yesterday. 2. Small pleural effusions with dependent consolidation. ACT 112: Negative or not required by law. Electronically signed by: Lino Orona M.D. 06/20/2023 7:04 AM
[2023-06-20 07:15] LABS: Ferritin 121.7 ng/ml (8-388)
[2023-06-20] MEDS: CALCITRIOL 0.25 MCG CAPSULE PO SCH (08:39)
[2023-06-20] MEDS: CYANOCOBALAMIN (B-12) 500 MCG TABLET PO SCH (08:39)
[2023-06-20] MEDS: NEPHROCAPS PO SCH (08:39)
[2023-06-20] MEDS: ASPIRIN 81 MG CHEW PO SCH (08:39)
[2023-06-20] MEDS: TRIAMCINOLONE ACET 0.1% OINT 15 GM TUBE TOP SCH (08:41)
[2023-06-20] MEDS ORDERED: METOPROLOL SUCC 50MG EXT REL TAB PO SCH (09:00)
[2023-06-20] MEDS: EPOETIN ALFA 40,000 UNITS/ML VIAL IV STA (10:43)
--- NOTE | 2023-06-20 11:30 | Nephrology Progress Note ---
Date of Service June 20, 2023 Assessment & Plan (1) ESRD (end stage renal disease): (2) Pulmonary edema: (3) Hypertension: (4) Anemia due to chronic kidney disease: (5) Secondary hyperparathyroidism of renal origin: (6) Metabolic acidosis: Plan ESKD most likely secondary to ? DM nephropathy with h/o HTN, DM with proteinuria. Renal ultrasound with no evidence of post renal obstruction but has bilateral renal cyst serological and paraproteinemia workup unremarkable. Biopsy was not done as it was relatively contraindicated considering bilateral small size kidney and multiple cyst and high likelihood of finding diabetic nephropathy and atherosclerotic disease. Had rt arm basilic vein endovascular AV fistula placement on 03/27/2021, had transposition in May 2021. Presented on 06/19/2023 with overall feeling poorly, noticing some shortness of breath. Kidney function worsened significantly, with volume overload, electrolyte abnormality and started on dialysis on admission however later infiltrated right after started on dialysis and dialysis was stopped yesterday. -- Continue on intermittent hemodialysis, next dialysis will be Thursday. Case management consulted for outpatient dialysis set up at [facility] -- Epogen 40,000 units x 1 dose today --Nephro Daily, Renvela, 1 tablet each meal -- Discontinue sodium bicarbonate and ferrous sulfate -- Right arm nephrology precaution ( AVF) Admission and Anticipated Discharge Date Admission Date: June 19, 2023 Subjective He was seen this morning while getting dialysis. Dialysis catheter infiltrated yesterday and this morning was again having difficulty with cannulation but eventually cannulation is successful with both needle. Overall she continues to feel poorly. Creatinine worsened this morning but electrolyte stayed reasonably fair. Hemoglobin dropped to 9.0. Blood pressure slightly elevated. Review of Systems Review of Systems: Detailed review of system was done and pertinent positives and negatives are mentioned above. Physical Exam Constitutional: WD/WN, vitals as above + ill appearing; no acute distress pale Eyes: + anicteric sclerae Neck: normal visual inspection Respiratory: no respiratory distress Auscultation: lungs clear to auscultation bilaterally and + diminished lung sounds Cardiovascular: Rate/Rhythm: regular rate and regular rhythm Heart Sounds: normal S1 and normal S2 Extremities: + edema and + AV fistula (thrill and Bruit) Skin: no rashes, warm and dry Neurologic: no focal motor deficits Psychiatric: Orientation: alert and oriented x 3 Results & Data Vital Signs (Past 12 Hours) Vital Signs Temp Pulse Pulse Pulse Resp BP BP 06/20/23 10:30 62 165/78 H 06/20/23 10:09 73 163/73 H 06/20/23 09:39 36.8 C 71 06/20/23 08:00 74 06/20/23 08:00 06/20/23 07:30 37.2 C 75 18 159/73 H 06/20/23 06:15 125/69 06/20/23 03:08 37.0 C 72 20 202/78 H 06/20/23 01:07 70 Pulse Ox O2 Del Method 06/20/23 10:30 06/20/23 10:09 06/20/23 09:39 06/20/23 08:00 06/20/23 08:00 Room Air 06/20/23 07:30 92 Room Air 06/20/23 06:15 06/20/23 03:08 90 Room Air 06/20/23 01:07 PG Care Time/CCT Total # of Minutes Spent Total Time Spent with Patient: Total time spent is greater than 50% in coordination of care (as documented) at patient's floor/unit and/or counseling patient: Coding Level of Care Code 37127 SUB INP/OBS CARE 3/50MIN Diagnoses ESRD (end stage renal disease) N18.6 Pulmonary edema J81.1 Essential hypertension I10 Hypertension type: essential hypertension Anemia due to chronic kidney disease N18.9; D63.1 Secondary hyperparathyroidism of renal origin N25.81 Metabolic acidosis E87.20 (3) Hypertension Hypertension type: essential hypertension Qualified Code(s): I10 - Essential (primary) hypertension
[2023-06-20 12:22] LABS: HBSAG NON-REACTIVE (NON-REACTIVE); Hepatitis B Core Antibody IgM NON-REACTIVE (NON-REACTIVE); Hepatitis B Surface Ab, Quant <5 mIU/mL (> OR = 10)
[2023-06-20] MEDS: METOPROLOL SUCC 50MG EXT REL TAB PO SCH (12:55)
[2023-06-20] MEDS: amLODIPine BESYLATE 5 MG TAB PO SCH (12:55)
--- NOTE | 2023-06-20 13:34 | Hospitalist Progress Note ---
Date of Service June 20, 2023 Assessment & Plan (1) Pulmonary edema: Plan: Due to volume overload. She has a history of diastolic CHF so this probably represents acute on chronic diastolic CHF. HD should resolve volume overload. Serial chest x-ray (2) ESRD (end stage renal disease): Plan: Nephrology consultation and recommendations appreciated. She has previously had AV fistula created. She is now receiving hemodialysis (3) Type 2 diabetes mellitus with obesity: Plan: ADA diet. Sliding scale coverage as needed. Continue current medical management (4) Hypertension: Plan: Stable. Continue current medical management (5) Diastolic CHF: Plan: Acute on chronic due to volume overload related to end-stage renal disease. Continue hemodialysis per band tacker schedule. Serial chest x-ray Plan Hopeful discharge to home within the next couple days. Admission and Anticipated Discharge Date Admission Date: June 19, 2023 Subjective The patient was seen in dialysis. She is alert and oriented. No acute problems. OT and PT assessments have been ordered. Will monitor daily lab work. Appreciate nephrology consultation and recommendations Review of Systems 2 Review of Systems: Constitutional-no fever or chills ENT-no blurred vision, no double vision, no epistaxis, no sore throat Respiratory-no cough, no wheezing. Recent onset of dyspnea on exertion Cardiac-no palpitations, no chest pain, no syncope GI-no nausea, vomiting, diarrhea, melena, hematochezia -no urinary retention, no urinary incontinence, no dysuria, no hematuria Musculoskeletal-no joint pain, no muscle tenderness Skin-no bruising, no rashes, no pruritus Neuro-no isolated weakness, no paresthesia, no weakness Psych-no depression, no anxiety Physical Exam 2 Physical Exam: General-alert and oriented x3, no fever, no chills HEENT-head atraumatic and normocephalic, pupils equal and reactive to light, extraocular muscles intact Neck-no lymphadenopathy or thyromegaly, trachea midline Chest-diminished breath sounds bilaterally. Faint bibasilar inspiratory rales. No wheezing or rhonchi Cardiac-regular rate and rhythm, normal S1 and S2 Abdomen-normal bowel sounds, nontender, no hepatosplenomegaly Extremities-no cyanosis, clubbing, or edema Neuro-cranial nerves II through XII intact, motor and sensory function within normal limits, strength symmetrical, no focal deficits Psych-normal affect, normal mood Results & Data Results & Data Vital Signs (Past 12 Hours) Vital Signs Temp Pulse Pulse Pulse Resp BP BP 06/20/23 12:39 36.8 C 62 170/81 H 06/20/23 12:00 60 160/78 H 06/20/23 11:30 60 175/69 H 06/20/23 11:00 60 168/76 H 06/20/23 10:30 62 165/78 H 06/20/23 10:09 73 163/73 H 06/20/23 09:39 36.8 C 71 06/20/23 08:00 74 06/20/23 08:00 06/20/23 07:30 37.2 C 75 18 159/73 H 06/20/23 06:15 125/69 06/20/23 03:08 37.0 C 72 20 202/78 H Pulse Ox O2 Del Method 06/20/23 12:39 06/20/23 12:00 06/20/23 11:30 06/20/23 11:00 06/20/23 10:30 06/20/23 10:09 06/20/23 09:39 06/20/23 08:00 06/20/23 08:00 Room Air 06/20/23 07:30 92 Room Air 06/20/23 06:15 06/20/23 03:08 90 Room Air Laboratory Results 06/19/23 09:35 06/20/23 05:38 PG Care Time/CCT Total # of Minutes Spent Total Time Spent with Patient: Total time spent is greater than 50% in coordination of care (as documented) at patient's floor/unit and/or counseling patient: Coding Level of Care Code 40663 SUB INP/OBS CARE 3/50MIN Diagnoses Pulmonary edema J81.1 ESRD (end stage renal disease) N18.6 Type 2 diabetes mellitus with obesity E11.69; E66.9 Essential hypertension I10 Hypertension type: essential hypertension Diastolic CHF I50.30 (4) Hypertension Hypertension type: essential hypertension Qualified Code(s): I10 - Essential (primary) hypertension
[2023-06-20 14:55] LABS: Hematocrit (blood only) 23.9 % (37.0-47.0); Hemoglobin 7.9 g/dl (12.0-16.0); Mean Corpuscular Hemoglobin 31.2 pg (25.0-34.0); Mean Corpuscular Hgb Conc 33.1 g/dL (32.0-36.0); Mean Corpuscular Volume 94.5 fL (80.0-100.0); Platelet Count 242 K/uL (130-400); RDW Coefficient of Variation 12.7 % (11.5-14.5); RDW Standard Deviation 43.4 fL (36.4-46.3); Red Blood Count 2.53 M/uL (4.20-5.40); White Blood Count 7.52 K/ul (4.8-10.8)
[2023-06-20] MEDS: FUROSEMIDE 40 MG TAB PO SCH (17:19)
[2023-06-20 21:29] LABS: Appearance Urine Cloudy (Clear); Bacteria Urine Automated Negative (Negative); Bilirubin Urine Negative (Negative); Blood Urine Trace (Negative); Color Urine Yellow; Epithelial Cell Urine Auto >30 /lpf (0-5); Glucose Urine UA 1+ (Negative); Ketones Urine Trace (Negative); Leukocyte Esterase Urine 1+ (Negative); Nitrite Urine Negative (Negative); Protein Urine 3+ (Negative); Specific Gravity Urine 1.016 (1.000-1.030); Urobilinogen Urine Negative (Negative); WBC Urine Automated >30 /hpf (0-5); pH Urine 6.5 (4.5-7.5)
[2023-06-20 21:41] LABS: RBC Urine Automated 0-4 /hpf (0-4)
[2023-06-21 07:35] LABS: BUN Creatinine Ratio 9.1 (10-20); Calcium 10.2 mg/dl (8.6-10.3); Creatinine Clr Calc Pharmacy 9.1 ml/min; Est GFR (Non-African American) 6.9 ml/min
[2023-06-21] MEDS: IRON SUCROSE 200 MG in 0.9 % SODIUM CHLORIDE 100 ML IV SCH (10:19)
--- NOTE | 2023-06-21 10:41 | XRay Report ---
XR chest 1V portable HISTORY: fluid overload COMPARISON: Chest 06/20/2023. FINDINGS: No pneumothorax. There are calcifications within the aortic knob. No acute fractures. Cardi omegaly, mild pulmonary edema, and small bilateral pleural effusions persist. No new focal lung conso lidations. IMPRESSION: No change in the pulmonary edema and small bilateral pleural effusions. ACT 112: Negative or not required by law. Electronically signed by: David Solorzano M.D. 06/21/2023 10:39 AM
--- NOTE | 2023-06-21 10:43 | Nephrology Progress Note ---
Date of Service June 21, 2023 Assessment & Plan (1) ESRD (end stage renal disease): (2) Pulmonary edema: (3) Hypertension: (4) Anemia due to chronic kidney disease: (5) Secondary hyperparathyroidism of renal origin: (6) Metabolic acidosis: Plan ESKD most likely secondary to ? DM nephropathy with h/o HTN, DM with proteinuria. Renal ultrasound with no evidence of post renal obstruction but has bilateral renal cyst serological and paraproteinemia workup unremarkable. Biopsy was not done as it was relatively contraindicated considering bilateral small size kidney and multiple cyst and high likelihood of finding diabetic nephropathy and atherosclerotic disease. Had rt arm basilic vein endovascular AV fistula placement on 03/27/2021, had transposition in May 2021. Presented on 06/19/2023 with overall feeling poorly, noticing some shortness of breath. Kidney function worsened significantly, with volume overload, electrolyte abnormality and started on dialysis on admission however later infiltrated right after started on dialysis and dialysis was stopped yesterday Had first dialysis treatment on 06/20/2023, had 2 L UF. Overall volume status improved although she still has some pulmonary congestion. -- Start on Venofer 20 mg daily for total 5 doses, considering drop in hemoglobin, reasonable to do fecal occult blood test. Waiting on outpatient dialysis set up at [facility] kidney [facility] -- Epogen 40,000 units x 1 dose given on 06/20/2023 --Nephro Daily, Renvela, 1 tablet each meal -- Right arm nephrology precaution ( AVF) -- Continue on buspirone for anxiety, ok to increase up to 7.5 mg twice daily prn however considering end-stage kidney disease and diabetes she has high risk for underlying coronary artery disease, recommend EKG, serial troponin and 2D echo for further evaluation. Admission and Anticipated Discharge Date Admission Date: June 19, 2023 Roman Dyson was seen and evaluated this morning. Had first dialysis treatment yesterday, had 2 L UF, with low blood flow. She reports increased urine output on Lasix. However, she was having conversational dyspnea and she felt like it was because of her anxiety. Denied any chest pain. Hemoglobin did drop to 7.9 this morning, received Epogen during dialysis yesterday. She denies black stool or any other sign of active bleeding. Review of Systems Review of Systems: Detailed review of system was done and pertinent positives and negatives are mentioned above. Physical Exam Constitutional: WD/WN, vitals as above + ill appearing; no acute distress Eyes: + anicteric sclerae Neck: normal visual inspection Respiratory: no respiratory distress Auscultation: lungs clear to auscultation bilaterally and + diminished lung sounds Cardiovascular: Rate/Rhythm: regular rate and regular rhythm Heart Sounds: normal S1 and normal S2 Extremities: + edema and + AV fistula (thrill and Bruit) Skin: no rashes, warm and dry Neurologic: no focal motor deficits Psychiatric: Orientation: alert and oriented x 3 Results & Data Vital Signs (Past 12 Hours) Vital Signs Temp Pulse Pulse Resp BP Pulse Ox O2 Del Method 06/21/23 08:00 68 06/21/23 08:00 Room Air 06/21/23 07:30 36.7 C 74 20 144/77 H 96 Room Air 06/21/23 03:07 36.9 C 65 18 140/70 94 Room Air 06/20/23 23:23 36.6 C 73 18 137/60 87 L Room Air 06/20/23 23:03 61 PG Care Time/CCT Total # of Minutes Spent Total Time Spent with Patient: Total time spent is greater than 50% in coordination of care (as documented) at patient's floor/unit and/or counseling patient: Coding Level of Care Code 31062 SUB INP/OBS CARE 3/50MIN Diagnoses ESRD (end stage renal disease) N18.6 Pulmonary edema J81.1 Essential hypertension I10 Hypertension type: essential hypertension Anemia due to chronic kidney disease N18.9; D63.1 Secondary hyperparathyroidism of renal origin N25.81 Metabolic acidosis E87.20 (3) Hypertension Hypertension type: essential hypertension Qualified Code(s): I10 - Essential (primary) hypertension
--- NOTE | 2023-06-21 12:38 | Hospitalist Progress Note ---
Date of Service June 21, 2023 Assessment & Plan (1) Pulmonary edema: Plan: Due to volume overload. She has a history of diastolic CHF so this probably represents acute on chronic diastolic CHF. HD should resolve volume overload. Serial chest x-ray (2) ESRD (end stage renal disease): Plan: Nephrology consultation and recommendations appreciated. She has previously had AV fistula created. She is now receiving hemodialysis (3) Type 2 diabetes mellitus with obesity: Plan: ADA diet. Sliding scale coverage as needed. Continue current medical management (4) Hypertension: Plan: Stable. Continue current medical management (5) Diastolic CHF: Plan: Acute on chronic due to volume overload related to end-stage renal disease. Continue hemodialysis per marketing sales supervisor schedule. Serial chest x-ray. Nephrology has started oral Lasix therapy (6) Anemia: Plan: Hemoglobin has dropped somewhat despite removal of volume with hemodialysis. No overt melena or hematochezia. Parenteral iron ordered by nephrology. Fecal occult blood is pending. Plan Hopeful discharge to home within the next couple days. Admission and Anticipated Discharge Date Admission Date: June 19, 2023 Subjective Alert and oriented. No distress. Hemoglobin has dropped to 7.9 despite fluid removal. No overt melena or hematochezia. Fecal occult blood is pending. Primary concern is anxiety. Buspirone uptitrated to twice daily dosing on a scheduled basis. Parenteral iron replacement ordered. Repeat portable chest x- ray today, June 21, continues to reveal evidence of right pleural effusion with underlying pulmonary edema. Urine culture is negative. Glucose 153 and acceptable. Review of Systems 2 Review of Systems: Constitutional-no fever or chills ENT-no blurred vision, no double vision, no epistaxis, no sore throat Respiratory-no cough, no wheezing. Recent onset of dyspnea on exertion Cardiac-no palpitations, no chest pain, no syncope GI-no nausea, vomiting, diarrhea, melena, hematochezia -no urinary retention, no urinary incontinence, no dysuria, no hematuria Musculoskeletal-no joint pain, no muscle tenderness Skin-no bruising, no rashes, no pruritus Neuro-no isolated weakness, no paresthesia, no weakness Psych-no depression, no anxiety Physical Exam 2 Physical Exam: General-alert and oriented x3, no fever, no chills HEENT-head atraumatic and normocephalic, pupils equal and reactive to light, extraocular muscles intact Neck-no lymphadenopathy or thyromegaly, trachea midline Chest-diminished breath sounds bilaterally. Faint bibasilar inspiratory rales. No wheezing or rhonchi Cardiac-regular rate and rhythm, normal S1 and S2 Abdomen-normal bowel sounds, nontender, no hepatosplenomegaly Extremities-no cyanosis, clubbing, or edema Neuro-cranial nerves II through XII intact, motor and sensory function within normal limits, strength symmetrical, no focal deficits Psych-normal affect, normal mood Results & Data Results & Data Vital Signs (Past 12 Hours) Vital Signs Temp Pulse Pulse Resp BP Pulse Ox O2 Del Method 06/21/23 11:35 36.5 C 88 18 168/69 H 97 Room Air 06/21/23 08:00 68 06/21/23 08:00 Room Air 06/21/23 07:30 36.7 C 74 20 144/77 H 96 Room Air 06/21/23 03:07 36.9 C 65 18 140/70 94 Room Air Laboratory Results 06/20/23 14:39 06/21/23 06:50 PG Care Time/CCT Total # of Minutes Spent Total Time Spent with Patient: Total time spent is greater than 50% in coordination of care (as documented) at patient's floor/unit and/or counseling patient: Coding Level of Care Code 21771 SUB INP/OBS CARE 3/50MIN Diagnoses Pulmonary edema J81.1 ESRD (end stage renal disease) N18.6 Type 2 diabetes mellitus with obesity E11.69; E66.9 Essential hypertension I10 Hypertension type: essential hypertension Diastolic CHF I50.30 Anemia D64.9 (4) Hypertension Hypertension type: essential hypertension Qualified Code(s): I10 - Essential (primary) hypertension
[2023-06-21] MEDS: hydrALAZINE HCL 20 MG/ML VIAL ONE (18:13)
[2023-06-21] MEDS: hydrALAZINE HCL 20 MG/ML VIAL IV STA (18:16)
[2023-06-21] MEDS: busPIRone 7.5 MG TAB PO SCH (20:19)
[2023-06-22] MEDS: hydrALAZINE HCL 20 MG/ML VIAL IV PRN (08:00)
[2023-06-22 08:25] LABS: Basophils # (auto) 0.08 K/uL (0.00-0.20); Basophils % (auto) 0.8 %; Hematocrit (blood only) 25.9 % (37.0-47.0); Hemoglobin 8.4 g/dl (12.0-16.0); Immature Granulocytes # (auto) 0.15 K/uL (0.01-0.20); Immature Granulocytes % (auto) 1.5 %; Lymphocytes # (auto) 1.62 K/uL (1.20-3.40); Lymphocytes % (auto) 16.2 %; Mean Corpuscular Hgb Conc 32.4 g/dL (32.0-36.0); Mean Corpuscular Volume 95.6 fL (80.0-100.0); Mean Platelet Volume 11.5 fL (9.4-12.4); Monocytes # (auto) 1.06 K/uL (0.11-0.59); Monocytes % (auto) 10.6 %; Neutrophils % (auto) 69.9 %; Nucleated RBC # (auto) 0.05 K/uL (0.00-0.12); Nucleated RBC % (auto) 0.5 %; Platelet Count 257 K/uL (130-400); RDW Coefficient of Variation 13.1 % (11.5-14.5); RDW Standard Deviation 44.7 fL (36.4-46.3); Red Blood Count 2.71 M/uL (4.20-5.40); White Blood Count 10.01 K/ul (4.8-10.8)
[2023-06-22 08:30] LABS: Albumin Level 3.5 gm/dl (3.4-5.0); BUN Creatinine Ratio 9.3 (10-20); Calcium 10.7 mg/dl (8.6-10.3); Creatinine Clr Calc Pharmacy 8.3 ml/min; Est GFR (African American) 7.1 ml/min; Est GFR (Non-African American) 6.2 ml/min; Phosphorus 5.1 mg/dl (2.5-4.9); Potassium 3.7 mmol/L (3.5-5.1)
--- NOTE | 2023-06-22 09:56 | Nephrology Progress Note ---
Date of Service June 22, 2023 Assessment & Plan (1) ESRD (end stage renal disease): (2) Pulmonary edema: (3) Hypertension: (4) Anemia due to chronic kidney disease: (5) Secondary hyperparathyroidism of renal origin: (6) Metabolic acidosis: Plan ESKD most likely secondary to ? DM nephropathy with h/o HTN, DM with proteinuria. Renal ultrasound with no evidence of post renal obstruction but has bilateral renal cyst serological and paraproteinemia workup unremarkable. Biopsy was not done as it was relatively contraindicated considering bilateral small size kidney and multiple cyst and high likelihood of finding diabetic nephropathy and atherosclerotic disease. Had rt arm basilic vein endovascular AV fistula placement on 03/27/2021, had transposition in May 2021. Presented on 06/19/2023 with overall feeling poorly, noticing some shortness of breath. Kidney function worsened significantly, with volume overload, electrolyte abnormality and started on dialysis on admission however later infiltrated right after started on dialysis and dialysis was stopped yesterday Had first dialysis treatment on 06/20/2023, had 2 L UF. Overall volume status improved although she still has some pulmonary congestion. --HD today for 3 h -- continue on Venofer 20 mg daily for total 5 doses. Waiting on outpatient dialysis set up at [facility] [place] -- Epogen 40,000 units x 1 dose given on 06/20/2023 --Nephro Daily, resume Renvela, 1 tablet each meal -- Right arm nephrology precaution ( AVF) -- Continue on buspirone for anxiety, ok to increase up to 7.5 mg twice daily prn -- pending 2D echo. Admission and Anticipated Discharge Date Admission Date: June 19, 2023 Roman Dyson was seen and evaluated this morning. She continues to have some conversational dyspnea and she felt like it was because of her anxiety. Denies SOB at rest. Reports noticing occasional chest pain. Troponin x 2 yesterday was unremarkable. Hemoglobin 8.4, on Venofer, received Epogen during dialysis yesterday. BP was running high and she vomited just before coming to HD. Review of Systems Review of Systems: Detailed review of system was done and pertinent positives and negatives are mentioned above. Physical Exam Constitutional: WD/WN, vitals as above + ill appearing; no acute distress Eyes: + anicteric sclerae Neck: normal visual inspection Respiratory: no respiratory distress Auscultation: lungs clear to auscultation bilaterally, + diminished lung sounds and + crackles Cardiovascular: Rate/Rhythm: regular rate and regular rhythm Heart Sounds: normal S1 and normal S2 Extremities: + edema and + AV fistula (thrill and Bruit) Skin: no rashes, warm and dry Neurologic: no focal motor deficits Psychiatric: Orientation: alert and oriented x 3 Results & Data Vital Signs (Past 12 Hours) Vital Signs Temp Pulse Pulse Pulse Resp BP Pulse Ox 06/22/23 08:00 61 06/22/23 08:00 06/22/23 07:45 37.2 C 86 18 196/99 H 91 06/22/23 03:00 37.1 C 71 16 176/92 H 91 06/21/23 23:51 71 06/21/23 23:00 36.8 C 66 18 190/101 H 92 O2 Del Method 06/22/23 08:00 06/22/23 08:00 Room Air 06/22/23 07:45 Room Air 06/22/23 03:00 Room Air 06/21/23 23:51 06/21/23 23:00 Room Air PG Care Time/CCT Total # of Minutes Spent Total Time Spent with Patient: Total time spent is greater than 50% in coordination of care (as documented) at patient's floor/unit and/or counseling patient: Coding Level of Care Code 12793 SUB INP/OBS CARE 3/50MIN Diagnoses ESRD (end stage renal disease) N18.6 Pulmonary edema J81.1 Essential hypertension I10 Hypertension type: essential hypertension Anemia due to chronic kidney disease N18.9; D63.1 Secondary hyperparathyroidism of renal origin N25.81 Metabolic acidosis E87.20 (3) Hypertension Hypertension type: essential hypertension Qualified Code(s): I10 - Essential (primary) hypertension
[2023-06-22] MEDS: NITROGLYCERIN SL 0.4 MG/TAB TAB ONE (10:02)
[2023-06-22] MEDS ORDERED: NITROGLYCERIN SL 0.4 MG/TAB TAB SL PRN (10:03)
[2023-06-22] MEDS: NITROGLYCERIN SL 0.4 MG/TAB TAB SL STA (10:16)
--- NOTE | 2023-06-22 11:06 | XCELERA ---
[id number]
[2023-06-22] MEDS: LORazepam 1 MG TAB PO PRN (12:16)
[2023-06-22] MEDS: hydrALAZINE HCL 25 MG TAB PO SCH (12:16)
--- NOTE | 2023-06-22 13:15 | Cardiology Consultation ---
Date of Consultation June 22, 2023 Assessment & Plan (1) Chest pain syndrome: -history an EKG changes suggest possible coronary artery disease. -anxiety is clearly a factor. -would check several high sensitivity troponins. -aggressive blood pressure control. -consider dobutamine stress test versus cardiac catheterization depending on her clinical course. (2) Acute on chronic diastolic CHF (congestive heart failure): -clearly secondary to her end-stage renal disease. -has improved with hemodialysis. -diuretic management per Nephrology. (3) Hypertension: -treat blood pressure aggressively as you are. (4) Hypercholesterolemia: -continue simvastatin. (5) ESRD (end stage renal disease): -management per Nephrology. History of Present Illness Attending Physician: Jay Rivera MD History of Present Illness Dr. Guthrie is a 72-year-old female admitted on June 19 in acute renal failure with volume overload. She developed a chest pain syndrome this morning, therefore, this consultation was ordered. Of note, patient was previously seen by Dr. Kumar in the outpatient setting. The patient was in her usual state of health until several days prior to presentation when she began to develop progressive shortness of breath and lower extremity edema. She presented to the emergency room and was immediately started on hemodialysis. Fortunately, the patient's symptoms improved with hemodialysis. This morning, she woke up and was for her). She did not like the meal and became nauseated and vomited. Several hours later, she developed a left-sided chest discomfort and significant hypertension a blood pressure of 200/100. She was given 2 sublingual nitroglycerin tablets and her discomfort improved. An EKG performed at that time noted sinus rhythm with lateral and anterolateral ST depression. Her symptoms resolved after approximately 15 minutes. The patient has been noticing intermittent episodes of chest discomfort at times of emotional stress. The symptoms described above were quite typical of her previous events. She has never known of a cardiac event. She has never had a cardiac catheterization. Currently, patient is resting comfortably in bed complaints. Past medical and surgical history 1. Hypertension 2. Hypercholesterolemia 3. And diastolic CHF 4. LVH 5. Mild mitral regurgitation 6. Diabetes mellitus 7. End-stage renal disease 8. Secondary hyperparathyroidism 9. Hypothyroidism 10. Gout 11. Anemia of chronic disease 12. Anxiety 13. Obesity 14. Obstructive sleep apnea 15. History of DVT 16. Vitamin-D deficiency 17. Hearing deficit 18. 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 A brother at 64 from renal cell carcinoma No early coronary artery disease Review of systems A 10 point review of systems was undertaken and negative except that described above. Allergies Allergy/AdvReac Type Severity Reaction Status Date / Time insect venom Allergy Intermediate Swelling Verified 06/19/23 11:57 adhesive tape Allergy Mild Rash Verified 06/19/23 11:57 dulaglutide [From [facility]] AdvReac Mild Constipation, Verified 06/19/23 11:57 vomiting Home Medications Medication Instructions Recorded Confirmed Type lancets (Accu-Chek Fastclix Lancet #50 ea 12/16/18 05/20/23 History Drum) aspirin 81 mg chewable tablet 81 mg PO QAM 11/07/19 06/19/23 History mecobalamin (vitamin B12) 1,000 1,000 mcg PO QAM 09/13/20 06/19/23 History mcg chewable tablet (B12 Active) pen needle, diabetic 32 gauge x #100 ea 09/13/20 05/20/23 Rx 5/32" (BD Ultra-Fine Nicki Pen Needle) FreeStyle Kvng 2 [place] (flash #1 ea 10/18/20 05/20/23 Rx glucose scanning reader) blood sugar diagnostic (Accu-Chek 10/15/21 05/20/23 History SmartView Test Strips) cholecalciferol (vitamin D3) 62.5 62.5 mcg PO HS 06/06/22 06/19/23 History mcg (2,500 unit) capsule metoprolol succinate 50 mg 50 mg PO QAM #90 tabs 07/22/22 06/19/23 Rx tablet,extended release 24 hr flash glucose sensor (FreeStyle #2 ea 12/16/22 05/20/23 Rx Kvng 2 Sensor kit) insulin aspart U-100 100 unit/mL 14 unit subcut QAM PRN bg LEVELS 03/10/23 06/19/23 History (3 mL) subcutaneous pen (Novolog FlexPen U-100 Insulin aspart) sodium bicarbonate 650 mg tablet 650 mg PO BID #60 tabs 04/10/23 06/19/23 Rx amlodipine 10 mg tablet 10 mg PO QAM #90 tabs 06/16/23 06/19/23 Rx hydralazine 25 mg tablet 25 mg PO BID #180 tabs 06/16/23 06/19/23 Rx metoprolol succinate 100 mg 100 mg PO QAM #90 tabs 06/16/23 06/19/23 Rx tablet,extended release 24 hr buspirone 7.5 mg tablet 7.5 mg PO DAILY PRN anxiety 06/19/23 06/19/23 History calcitriol 0.5 mcg capsule 0 mcg PO DAILY 06/19/23 06/19/23 History ferrous gluconate 324 mg (38 mg 324 mg PO BID 06/19/23 06/19/23 History iron) tablet insulin degludec 100 unit/mL (3 8 - 14 unit subcut .BIDAFTERMEALS 06/19/23 06/19/23 History mL) subcutaneous pen (Tresiba PRN BG levels FlexTouch U-100 insulin) sevelamer HCl 800 mg tablet 0 mg PO TID 06/19/23 06/19/23 History simvastatin 20 mg tablet 20 mg PO QPM #90 tabs 06/19/23 06/19/23 Rx triamcinolone acetonide 0.1 % 1 applic topical DAILY 06/19/23 06/19/23 History topical ointment Patient History Medical History (Updated 06/22/23 @ 15:12 by Jay Rivera MD) Metabolic acidosis Stage 5 chronic kidney disease not on chronic dialysis AV fistula right arm--per pt not currently using yet Periodontal pocket Carious teeth Vitamin D deficiency Anemia due to chronic kidney disease Sleep apnea Per 2009 polysomnography (per 02/2021 pulmonology note)- pt declined treatment or repeat study-NO DEVICE Diastolic CHF Anxiety Associated dyspnea per pulmonology Insulin-requiring or dependent type II diabetes mellitus Obesity Chronic kidney disease, stage 4 (severe) Secondary hyperparathyroidism of renal origin History of DVT (deep vein thrombosis) Multiple "small" DVTs (25+ years ago, 6 years ago) Fibroids Gout History of hypothyroidism HX-NO MEDS Hypercholesterolemia Hypertension Sensorineural hearing loss (SNHL) of both ears Surgical History S/P arteriovenous (AV) fistula creation RIGHT arm 03/27/21 @ [facility] Dr. Subramanian History of dental surgery History of surgery on arm Right Arm basilic vein transposition 2nd stage @ [facility] Dr. Subramanian 06/10/21 History of colonoscopy Family History Mother Diabetes Renal cell cancer Heart disease Colorectal cancer Hypertension Brother Diabetes Renal cell cancer Heart disease Lung cancer Hypertension Gallbladder disease Father Prostate cancer Heart disease Hypertension Grandmother (Maternal) Colorectal cancer Aunt Diabetes Other Alzheimer disease No family history of adverse response to anesthesia Denies family history of Ovarian cancer Myocardial infarction Breast cancer Social History Smoking Status: Never smoker Second Hand Exposure: No; Do You Dip or Chew Tobacco: No; Hx Alcohol Use: Yes Alcohol type: wine Alcohol Intake Frequency: Monthly or Less Hx Substance Use: No Preferred Language: Colombian Communication Ability: Effective Visual Impairment: Limited Hearing Ability: Hard of Hearing Senior Human Resources Representative Required: No Beliefs That Will Affect Care: None marital status: Single Current Living Situation: Alone current occupational status: retired 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 HEENT exam is negative. Neck is supple with full carotid upstrokes. There are no carotid bruits. Jugular is pressure is flat at 90. There is no thyromegaly. Cardiovascular exam reveals a regular rhythm with distant heart sounds. No obvious murmurs. Lungs note bibasilar rales. Abdomen is obese without bruits. Extremities note trace pretibial edema. Results & Data Vital Signs (Past 12 Hours) Vital Signs Temp Pulse Pulse Pulse Resp BP Pulse Ox 06/22/23 11:35 36.3 C L 84 18 116/56 L 91 06/22/23 10:00 80 19 193/72 H 93 06/22/23 08:00 61 06/22/23 08:00 06/22/23 07:45 37.2 C 86 18 196/99 H 91 06/22/23 03:00 37.1 C 71 16 176/92 H 91 O2 Del Method 06/22/23 11:35 Room Air 06/22/23 10:00 Room Air 06/22/23 08:00 06/22/23 08:00 Room Air 06/22/23 07:45 Room Air 06/22/23 03:00 Room Air Laboratory Results CBC notes hemoglobin 8.4, hematocrit 25.9, white count 10.0, and platelet count of [id number]. Electrolytes note a sodium 141, potassium 3.7, chloride 108, bicarb 22, BUN 57, creatinine 6.16, and glucose of 156. High sensitivity troponin on presentation was 32.6 with a follow-up value of 32.5. Diagnostic Findings Echocardiogram performed this morning notes normal left ventricular systolic function with ejection fraction 50-55%. There was mild LVH along with mild mitral regurgitation. Compared with the study performed in December 2019, no significant change. EKG notes sinus rhythm with lateral and anterolateral ST depression. Chest x-ray notes cardiomegaly and diffuse interstitial edema. PG Care Time/CCT Total # of Minutes Spent Total Time Spent with Patient: Total time spent is greater than 50% in coordination of care (as documented) at patient's floor/unit and/or counseling patient: Coding Level of Care Code 81234 INT INP/OBS CARE 3/75MIN Diagnoses Chest pain syndrome R07.9 Acute on chronic diastolic CHF (congestive heart failure) I50.33 Essential hypertension I10 Hypertension type: essential hypertension Hypercholesterolemia E78.00 ESRD (end stage renal disease) N18.6 (3) Hypertension Hypertension type: essential hypertension Qualified Code(s): I10 - Essential (primary) hypertension
--- NOTE | 2023-06-22 14:39 | Electrocardiogram Report ---
Test Reason : Blood Pressure : / mmHG Vent. Rate : 085 BPM Atrial Rate : 085 BPM P-R Int : 202 ms QRS Dur : 098 ms QT Int : 398 ms P-R-T Axes : 060 005 079 degrees QTc Int : 473 ms Sinus rhythm with Premature atrial complexes Marked ST abnormality, possible anterolateral subendocardial injury Abnormal ECG When compared with ECG of 19-JUN-2023 09:26, ST now depressed in Anterolateral leads T wave inversion less evident in Lateral leads Confirmed by Junior Martins ([id number]) on 06/22/2023 2:39:30 PM Referred By: REFERRED SELF Confirmed By:Junior Martins
--- NOTE | 2023-06-22 15:13 | Hospitalist Progress Note ---
Date of Service June 22, 2023 Assessment & Plan (1) Pulmonary edema: Plan: Due to volume overload. She has a history of diastolic CHF so this probably represents acute on chronic diastolic CHF. HD should resolve volume overload. Serial chest x-ray (2) Angina pectoris: Plan: Associated with ST segment depression on EKG. Resolved with sublingual nitroglycerin. Initial troponin elevated at 430. Serial troponins ordered. Telemetry. Appreciate cardiology consultation and recommendations. Cardiac echo is negative for regional wall motion abnormalities. (3) ESRD (end stage renal disease): Plan: Nephrology consultation and recommendations appreciated. She has previously had AV fistula created. She is now receiving hemodialysis (4) Type 2 diabetes mellitus with obesity: Plan: ADA diet. Sliding scale coverage as needed. Continue current medical management (5) Hypertension: Plan: Hydralazine uptitrated to 4 times daily for better blood pressure control. (6) Diastolic CHF: Plan: Acute on chronic due to volume overload related to end-stage renal disease. Continue hemodialysis per bank president schedule. Serial chest x-ray. Nephrology has started oral Lasix therapy (7) Anemia: Plan: Hemoglobin has dropped somewhat despite removal of volume with hemodialysis. No overt melena or hematochezia. Parenteral iron ordered by nephrology. Fecal occult blood is pending. Plan Hopeful discharge to home within the next couple days. Admission and Anticipated Discharge Date Admission Date: June 19, 2023 Subjective The patient has symptoms of angina earlier this morning with EKG revealing ST segment depression. Her symptoms resolved with sublingual nitroglycerin. Cardiac echo reveals no regional wall motion abnormalities. Her first troponin level was elevated however. Cardiology consultation requested and appreciated. Will let cardiology decide if she needs to be on a heparin drip or not. Second EKG has been ordered and is currently pending. Acute diastolic CHF continues to resolve with ongoing dialysis. Lorazepam has been added for her anxiety. Hydralazine uptitrated to 4 times daily dosing for better blood pressure control. Review of Systems 2 Review of Systems: Constitutional-no fever or chills ENT-no blurred vision, no double vision, no epistaxis, no sore throat Respiratory-no cough, no wheezing. Recent onset of dyspnea on exertion Cardiac-no palpitations, no syncope. Chest discomfort consistent with angina this morning GI-no nausea, vomiting, diarrhea, melena, hematochezia -no urinary retention, no urinary incontinence, no dysuria, no hematuria Musculoskeletal-no joint pain, no muscle tenderness Skin-no bruising, no rashes, no pruritus Neuro-no isolated weakness, no paresthesia, no weakness Psych-no depression, no anxiety Physical Exam 2 Physical Exam: General-alert and oriented x3, no fever, no chills HEENT-head atraumatic and normocephalic, pupils equal and reactive to light, extraocular muscles intact Neck-no lymphadenopathy or thyromegaly, trachea midline Chest-diminished breath sounds bilaterally. Faint bibasilar inspiratory rales. No wheezing or rhonchi Cardiac-regular rate and rhythm, normal S1 and S2 Abdomen-normal bowel sounds, nontender, no hepatosplenomegaly Extremities-no cyanosis, clubbing, or edema Neuro-cranial nerves II through XII intact, motor and sensory function within normal limits, strength symmetrical, no focal deficits Psych-normal affect, normal mood Results & Data Results & Data Vital Signs (Past 12 Hours) Vital Signs Temp Pulse Pulse Pulse Resp BP Pulse Ox 06/22/23 14:57 60 06/22/23 11:35 36.3 C L 84 18 116/56 L 91 06/22/23 10:00 80 19 193/72 H 93 06/22/23 08:00 61 06/22/23 08:00 06/22/23 07:45 37.2 C 86 18 196/99 H 91 O2 Del Method 06/22/23 14:57 06/22/23 11:35 Room Air 06/22/23 10:00 Room Air 06/22/23 08:00 06/22/23 08:00 Room Air 06/22/23 07:45 Room Air Laboratory Results 06/22/23 07:40 06/22/23 07:40 PG Care Time/CCT Total # of Minutes Spent Total Time Spent with Patient: Total time spent is greater than 50% in coordination of care (as documented) at patient's floor/unit and/or counseling patient: Coding Level of Care Code 06577 SUB INP/OBS CARE 3/50MIN Diagnoses Pulmonary edema J81.1 Angina pectoris I20.9 ESRD (end stage renal disease) N18.6 Type 2 diabetes mellitus with obesity E11.69; E66.9 Essential hypertension I10 Hypertension type: essential hypertension Diastolic CHF I50.30 Anemia D64.9 (5) Hypertension Hypertension type: essential hypertension Qualified Code(s): I10 - Essential (primary) hypertension
[2023-06-22] MEDS: Heparin IV Adult Wt-Based Standard *NO* INITIAL Bolus Protocol IV STA (18:17)
[2023-06-22] MEDS: HEPARIN SODIUM/DEXTROSE 25,000 UNITS/500 ML BAG IV SCH (18:17)
[2023-06-22 19:15] LABS: ANTI-Xa, UFH(UnfractionatedHep < 0.10 IU/ml (0.3-0.7)
[2023-06-22] MEDS: NITROGLYCERIN 2% OINTMENT 30GM TUBE EXT SCH (20:29)
--- NOTE | 2023-06-22 22:16 | Communication Note ---
Notified of increased troponin 430 to 7032. Repeat EKG with concern for lateral ischemia, largely unchanged EKG from earlier today. Saw pt at bedside and she denies any active chest pain or dyspnea, states that she has not had chest pain since this morning. Exam: Awake, Alert and in no acute distress. Heart with RRR without murmur. Lungs clear to auscultation B/L. Trace LE edema B/L. Hemodynamically stable. Already on heparin gtt, NTP added. Reached out to church secretary vice president corporate communications and plan to continue with supportive care unless she develops new/recurrent symptoms or changes in hemodynamics. q6H Tropin ordered. Date of Service: June 22, 2023
[2023-06-23 01:37] LABS: ANTI-Xa, UFH(UnfractionatedHep 0.73 IU/ml (0.3-0.7)
[2023-06-23 06:36] LABS: Basophils # (auto) 0.08 K/uL (0.00-0.20); Basophils % (auto) 0.7 %; Eosinophils # (auto) 0.26 K/uL (0.00-0.50); Eosinophils % (auto) 2.3 %; Hematocrit (blood only) 23.6 % (37.0-47.0); Hemoglobin 7.8 g/dl (12.0-16.0); Immature Granulocytes # (auto) 0.12 K/uL (0.01-0.20); Lymphocytes % (auto) 21.8 %; Mean Corpuscular Hemoglobin 32.1 pg (25.0-34.0); Mean Corpuscular Hgb Conc 33.1 g/dL (32.0-36.0); Mean Corpuscular Volume 97.1 fL (80.0-100.0); Mean Platelet Volume 11.1 fL (9.4-12.4); Monocytes # (auto) 1.09 K/uL (0.11-0.59); Monocytes % (auto) 9.5 %; Neutrophils # (auto) 7.41 K/uL (1.40-6.50); Neutrophils % (auto) 64.7 %; Nucleated RBC # (auto) 0.06 K/uL (0.00-0.12); Nucleated RBC % (auto) 0.5 %; Platelet Count 229 K/uL (130-400); RDW Coefficient of Variation 13.2 % (11.5-14.5); RDW Standard Deviation 46.2 fL (36.4-46.3); Red Blood Count 2.43 M/uL (4.20-5.40); White Blood Count 11.46 K/ul (4.8-10.8)
[2023-06-23 06:57] LABS: Polychromasia 1+
[2023-06-23 07:53] LABS: ANTI-Xa, UFH(UnfractionatedHep 0.99 IU/ml (0.3-0.7)
[2023-06-23] MEDS ORDERED: Nursing to Pharmacy Communication SCH (08:15)
--- NOTE | 2023-06-23 09:50 | Cardiology Progress Note ---
Date of Service June 23, 2023 Assessment & Plan (1) Chest pain syndrome: Plan: -acute coronary syndrome yesterday. -fortunately, no recurrence of her chest discomfort. -will proceed with a cardiac catheterization today. -agree with intravenous heparin. -continue metoprolol succinate and aspirin. -consider substituting atorvastatin or rosuvastatin for simvastatin. (2) Acute on chronic diastolic CHF (congestive heart failure): Plan: -clearly secondary to her end-stage renal disease. -improved with hemodialysis. -diuretic management per Nephrology. (3) Hypertension: Plan: -blood pressure adequately controlled. (4) Hypercholesterolemia: Plan: -as above, would change simvastatin to either atorvastatin or rosuvastatin. (5) ESRD (end stage renal disease): Plan: -management per Nephrology. Admission and Anticipated Discharge Date Admission Date: June 19, 2023 Subjective The patient is resting comfortably in bed without complaints of chest pain or dyspnea. We discussed the need to proceed with a cardiac catheterization. Physical Exam Physical Exam: In general is a mildly obese white female in no acute distress. HEENT exam is negative. Neck is supple with full carotid upstrokes. There are no carotid bruits. Jugular is pressure is flat at 90. There is no thyromegaly. Cardiovascular exam reveals a regular rhythm with distant heart sounds. No obvious murmurs. Lungs note bibasilar rales. Abdomen is obese without bruits. Extremities note trace pretibial edema. Results & Data Vital Signs (Past 12 Hours) Vital Signs Temp Pulse Pulse Resp BP Pulse Ox O2 Del Method 06/23/23 08:23 94 Nasal Cannula 06/23/23 08:00 59 L 06/23/23 08:00 Nasal Cannula 06/23/23 07:25 36.6 C 69 16 109/44 L 88 L Room Air 06/23/23 06:03 145/71 H 06/23/23 03:09 36.7 C 62 18 114/45 L 94 Nasal Cannula 06/22/23 23:18 65 06/22/23 22:37 Room Air 06/22/23 22:33 94 Nasal Cannula 06/22/23 22:30 36.7 C 73 24 108/47 L 90 Room Air O2 Flow Rate 06/23/23 08:23 2 06/23/23 08:00 06/23/23 08:00 2 06/23/23 07:25 06/23/23 06:03 06/23/23 03:09 2 06/22/23 23:18 06/22/23 22:37 06/22/23 22:33 1 06/22/23 22:30 Laboratory Results High sensitivity troponin peaked at 10,400. Diagnostic Findings ECG notes sinus rhythm with ST T-wave changes in the anterolateral leads. Improved versus the tracing done yesterday. cardiac monitor is benign. PG Care Time/CCT Total # of Minutes Spent Total Time Spent with Patient: Total time spent is greater than 50% in coordination of care (as documented) at patient's floor/unit and/or counseling patient: Coding Level of Care Code 76675 SUB INP/OBS CARE 3/50MIN Diagnoses Chest pain syndrome R07.9 Acute on chronic diastolic CHF (congestive heart failure) I50.33 Essential hypertension I10 Hypertension type: essential hypertension Hypercholesterolemia E78.00 ESRD (end stage renal disease) N18.6 (3) Hypertension Hypertension type: essential hypertension Qualified Code(s): I10 - Essential (primary) hypertension
--- NOTE | 2023-06-23 10:16 | Electrocardiogram Report ---
Test Reason : Blood Pressure : / mmHG Vent. Rate : 072 BPM Atrial Rate : 072 BPM P-R Int : 174 ms QRS Dur : 090 ms QT Int : 446 ms P-R-T Axes : 023 -02 087 degrees QTc Int : 488 ms Normal sinus rhythm Marked ST abnormality, possible anterolateral subendocardial injury Prolonged QT Abnormal ECG When compared with ECG of 22-JUN-2023 09:56, Premature atrial complexes are no longer Present Confirmed by Junior Martins ([id number]) on 06/23/2023 10:16:39 AM Referred By: REFERRED SELF Confirmed By:Junior Martins
--- NOTE | 2023-06-23 10:24 | Electrocardiogram Report ---
Test Reason : Blood Pressure : / mmHG Vent. Rate : 073 BPM Atrial Rate : 073 BPM P-R Int : 176 ms QRS Dur : 092 ms QT Int : 426 ms P-R-T Axes : 054 010 102 degrees QTc Int : 469 ms Normal sinus rhythm Marked ST abnormality, possible anterolateral subendocardial injury Abnormal ECG When compared with ECG of 22-JUN-2023 16:55, (unconfirmed) No significant change was found Confirmed by Junior Martins ([id number]) on 06/23/2023 10:24:00 AM Referred By: REFERRED SELF Confirmed By:Junior Martins
--- NOTE | 2023-06-23 10:30 | Nephrology Progress Note ---
Date of Service June 23, 2023 Assessment & Plan (1) ESRD (end stage renal disease): (2) Pulmonary edema: (3) Hypertension: (4) Anemia due to chronic kidney disease: (5) Secondary hyperparathyroidism of renal origin: (6) Metabolic acidosis: Plan ESKD most likely secondary to ? DM nephropathy with h/o HTN, DM with proteinuria. Renal ultrasound with no evidence of post renal obstruction but has bilateral renal cyst serological and paraproteinemia workup unremarkable. Biopsy was not done as it was relatively contraindicated considering bilateral small size kidney and multiple cyst and high likelihood of finding diabetic nephropathy and atherosclerotic disease. Had rt arm basilic vein endovascular AV fistula placement on 03/27/2021, had transposition in May 2021. Presented on 06/19/2023 with overall feeling poorly, noticing some shortness of breath. Kidney function worsened significantly, with volume overload, electrolyte abnormality and started on dialysis on admission however later infiltrated right after started on dialysis and dialysis was stopped and Had first dialysis treatment on 06/20/2023. Had 3 h HD yesterday. . Overall volume status improved although she still has some pulmonary congestion. -- will plan for HD after cardiac cath this morning considering significant residual renal function. -- continue on Venofer 200 mg daily for total 5 doses. Waiting on outpatient dialysis set up at [facility] [place] -- Epogen 40,000 units x 1 dose given on 06/20/2023 --Nephro Daily, resume Renvela, 1 tablet each meal -- Right arm nephrology precaution ( AVF) Admission and Anticipated Discharge Date Admission Date: June 19, 2023 Roman Dyson was seen and evaluated this morning. last 24 h records were reviewed, She feels well now, no significant CP or SOB. Troponin rapidly increased yesterday with concerning new EKG findings and started on heparin drip yesterday and plan for cath today. Hemoglobin 7.8 , on Venofer, received Epogen during dialysis on 06/20/23.. BP improved and has been low. Review of Systems Review of Systems: Detailed review of system was done and pertinent positives and negatives are mentioned above. Physical Exam Constitutional: WD/WN, vitals as above + ill appearing; no acute distress Eyes: + anicteric sclerae Neck: normal visual inspection Respiratory: no respiratory distress Auscultation: lungs clear to auscultation bilaterally, + diminished lung sounds and + crackles Cardiovascular: Rate/Rhythm: regular rate and regular rhythm Heart Sounds: normal S1 and normal S2 Extremities: + edema and + AV fistula (thrill and Bruit) Skin: no rashes, warm and dry Neurologic: no focal motor deficits Psychiatric: Orientation: alert and oriented x 3 Results & Data Vital Signs (Past 12 Hours) Vital Signs Temp Pulse Pulse Resp BP Pulse Ox O2 Del Method 06/23/23 08:23 94 Nasal Cannula 06/23/23 08:00 59 L 06/23/23 08:00 Nasal Cannula 06/23/23 07:25 36.6 C 69 16 109/44 L 88 L Room Air 06/23/23 06:03 145/71 H 06/23/23 03:09 36.7 C 62 18 114/45 L 94 Nasal Cannula 06/22/23 23:18 65 06/22/23 22:37 Room Air 06/22/23 22:33 94 Nasal Cannula 06/22/23 22:30 36.7 C 73 24 108/47 L 90 Room Air O2 Flow Rate 06/23/23 08:23 2 06/23/23 08:00 06/23/23 08:00 2 06/23/23 07:25 06/23/23 06:03 06/23/23 03:09 2 06/22/23 23:18 06/22/23 22:37 06/22/23 22:33 1 06/22/23 22:30 PG Care Time/CCT Total # of Minutes Spent Total Time Spent with Patient: Total time spent is greater than 50% in coordination of care (as documented) at patient's floor/unit and/or counseling patient: Coding Level of Care Code 47173 SUB INP/OBS CARE 3/50MIN Diagnoses ESRD (end stage renal disease) N18.6 Pulmonary edema J81.1 Essential hypertension I10 Hypertension type: essential hypertension Anemia due to chronic kidney disease N18.9; D63.1 Secondary hyperparathyroidism of renal origin N25.81 Metabolic acidosis E87.20 (3) Hypertension Hypertension type: essential hypertension Qualified Code(s): I10 - Essential (primary) hypertension
--- NOTE | 2023-06-23 10:42 | Electrocardiogram Report ---
Test Reason : Blood Pressure : / mmHG Vent. Rate : 064 BPM Atrial Rate : 064 BPM P-R Int : 154 ms QRS Dur : 092 ms QT Int : 446 ms P-R-T Axes : 056 -01 030 degrees QTc Int : 460 ms Normal sinus rhythm Nonspecific ST abnormality Abnormal ECG When compared with ECG of 22-JUN-2023 20:29, (unconfirmed) ST abnormality has improved Confirmed by Junior Martins ([id number]) on 06/23/2023 10:41:25 AM Referred By: REFERRED SELF Confirmed By:Junior Martins
[2023-06-23 15:00] LABS: ANTI-Xa, UFH(UnfractionatedHep 0.72 IU/ml (0.3-0.7)
[2023-06-23] MEDS: MIDAZOLAM HCL 1 MG/ML 2ML VIAL ONE ×2 (18:27→19:17)
[2023-06-23] MEDS: fentaNYL citrate PF 100 MCG/2 ML VIAL ONE (18:27)
[2023-06-23] MEDS: HEPARIN (PORCINE) 1000 UNIT/ML 10 ML (CATH LAB USE ONLY) ONE ×2 (18:27→19:16)
[2023-06-23] MEDS: NITROGLYCERIN/D5W 100MCG/ML 20ML SYR ONE (18:28)
[2023-06-23] MEDS: niCARdipine HCL INJ 2.5 MG/ML 10 ML AMP ONE (18:28)
[2023-06-23] MEDS: IODIXANOL (VISIPAQUE) 320 MG/ML 100ML IV ONE (18:28)
--- NOTE | 2023-06-23 18:54 | Pre Anesthesia Assessment ---
Date of Service June 23, 2023 Pre Sedation Assessment Vital Signs Temp Pulse Pulse Resp BP Pulse Ox O2 Del Method 06/23/23 16:11 Nasal Cannula 06/23/23 16:04 59 L 06/23/23 15:31 98.2 F 61 18 179/85 H 96 Nasal Cannula 06/23/23 11:41 98.8 F 60 18 172/75 H 94 Nasal Cannula 06/23/23 08:23 94 Nasal Cannula 06/23/23 08:00 59 L 06/23/23 08:00 Nasal Cannula 06/23/23 07:25 97.9 F 69 16 109/44 L 88 L Room Air 06/23/23 06:03 145/71 H 06/23/23 03:09 98.1 F 62 18 114/45 L 94 Nasal Cannula 06/22/23 23:18 65 06/22/23 22:37 Room Air 06/22/23 22:33 94 Nasal Cannula 06/22/23 22:30 98.1 F 73 24 108/47 L 90 Room Air 06/22/23 19:56 139/66 06/22/23 19:45 98.2 F 70 18 100/44 L 91 Room Air O2 Flow Rate 06/23/23 16:11 2 06/23/23 16:04 06/23/23 15:31 2 06/23/23 11:41 2 06/23/23 08:23 2 06/23/23 08:00 06/23/23 08:00 2 06/23/23 07:25 06/23/23 06:03 06/23/23 03:09 2 06/22/23 23:18 06/22/23 22:37 06/22/23 22:33 1 06/22/23 22:30 06/22/23 19:56 06/22/23 19:45 Cardiovascular + regular rate Respiratory + respiratory effort normal Pre-Sedation Airway Assessment Smoking Status: Never smoker Hx Sleep Apnea: Yes Short, Thick Neck: Yes Thyromental Distance: > or= 3.5 Finger Breadths Oral Cavity: + WNL Mallampati Class: II ASA: ASA4 Procedure Planning Contraindications for Sedation: none Current Medications Reviewed: Yes Notes The planned sedation has been discussed with the patient. Informed Consent was obtained. I have identified the patient, determined the appropriateness of sedation and have assessed the patient immediately prior to the procedure. All medicine(s) and interventions are by my order.
--- NOTE | 2023-06-23 18:54 | Post Anesthesia Assessment ---
Date of Service June 23, 2023 Post Sedation Assessment Vital Signs Temp Pulse Pulse Resp BP Pulse Ox O2 Del Method 06/23/23 16:11 Nasal Cannula 06/23/23 16:04 59 L 06/23/23 15:31 98.2 F 61 18 179/85 H 96 Nasal Cannula 06/23/23 11:41 98.8 F 60 18 172/75 H 94 Nasal Cannula 06/23/23 08:23 94 Nasal Cannula 06/23/23 08:00 59 L 06/23/23 08:00 Nasal Cannula 06/23/23 07:25 97.9 F 69 16 109/44 L 88 L Room Air 06/23/23 06:03 145/71 H 06/23/23 03:09 98.1 F 62 18 114/45 L 94 Nasal Cannula 06/22/23 23:18 65 06/22/23 22:37 Room Air 06/22/23 22:33 94 Nasal Cannula 06/22/23 22:30 98.1 F 73 24 108/47 L 90 Room Air 06/22/23 19:56 139/66 06/22/23 19:45 98.2 F 70 18 100/44 L 91 Room Air O2 Flow Rate 06/23/23 16:11 2 06/23/23 16:04 06/23/23 15:31 2 06/23/23 11:41 2 06/23/23 08:23 2 06/23/23 08:00 06/23/23 08:00 2 06/23/23 07:25 06/23/23 06:03 06/23/23 03:09 2 06/22/23 23:18 06/22/23 22:37 06/22/23 22:33 1 06/22/23 22:30 06/22/23 19:56 06/22/23 19:45 Recovery Score Activity: Moves 4 extremities Respiration: Deep Breath/Cough Circulation: +/-20% PreAnes Value Consciousness: Fully Awake Oxygen Saturation: O2 needed for >90% Discharge Sedation Level of Care: Fast Track Phase II Post Sedation Plan On clinical assessment, the patient appears to have tolerated the sedation without complications. Patient is recovering as anticipated. Patient will continue to be monitored by nursing and may be discharged when sedation discharge criteria are met per below protocol. Upon Completions of procedure up to 15 minutes continue every 5 minute vital signs and the P.A.R. score; then discharge to a Phase I or Fast Track to Phase II per the following guidelines: * Discharge Patient to appropriate Phase II area if PAR is 8 or greater or return to pre- procedure baseline. The post - procedure orders will be as directed. * If PAR score is less than 8 or not return to pre-procedure baseline then patient will follow Phase I monitoring till PAR is reached for Phase II. The Phase I may be done in procedure room or may call to secure a Phase I area. * If naloxone or flumazenil are used for reversal, hold in Phase I for continued monitoring from when last reversal dose was given for a minimum of 60 minutes or longer pending the nurse and/or physician discretion of patient condition before discharge to Phase II. Please call the Sedation Physician to re-evaluate and complete post-note for discharge to Phase II area. Do NOT discharge from procedure sedation or Phase 1 until post- sedation evaluation note is complete by procedure /sedation MD Sedation Discharge Instructions to be given to the patient at discharge to home.
--- NOTE | 2023-06-23 18:59 | Post Operative Brief Note ---
Cardiology Brief Post Op Date of Surgery June 23, 2023 Pre & Post Diagnosis NSTEMI Procedure [facility] PCI Bandage Wrapping Machine Operator Jeyson Lopes MD Veterinary Milk Specialist [facility] Estimated Blood Loss 20 Findings See Below 95% calcified mid LAD stenosis at bifurcation with diagonal. 100% RCA CAMPAIGN ADVISOR. Fills via brisk Left to right collaterals. Mild to moderate circumflex disease Successful PCI of LAD of with single LIBRA (2.5 x 30 mm Gui; post-dilated with 3.0 NC) Complications none Disposition Accompanied Patient To Recovery: No Disposition: PCU
[2023-06-23] MEDS: CLOPIDOGREL BISULFATE 300 MG TAB ONE (19:17)
--- NOTE | 2023-06-23 19:23 | Hospitalist Progress Note ---
Date of Service June 23, 2023 Assessment & Plan (1) Diastolic CHF: Plan: Acute on chronic HFpEF due to end-stage renal disease. Echocardiogram here with EF 50-55%, no wall motion abnormalities Volume management now with hemodialysis Continue Lasix twice daily Continue blood pressure control with hydralazine, amlodipine, metoprolol Strict I's and O's, daily weights, low-sodium diet (2) Non-ST elevation [place] (NSTEMI): Plan: Patient had significant angina on the morning of 06/[address] segment depression on EKG with T wave inversions. Resolved with sublingual nitroglycerin Initial troponin elevated at 430 and then peaked at 10,000. Was started on a heparin drip and Nitropaste Appreciate cardiology consultation and recommendations Cardiac echo is negative for regional wall motion abnormalities Cardiac catheterization on 06/23 with 95% stenosis in the mid LAD involving the takeoff of D2, RCA 100% distal chronic total occlusion with collaterals, circumflex calcified with 40 to 50% proximal and 30% mid segment disease. She had a single stent placed in the LAD Discontinue heparin drip and Nitropaste Continue aspirin, added Plavix. She is on simvastatin 20 mg-will change to atorvastatin Continue Toprol-XL Follow on telemetry for arrhythmias Heavily calcified artery in the wrist-2 TR bands applied-higher risk for bleeding (3) ESRD (end stage renal disease): Plan: Has now progressed to end-stage renal disease requiring hemodialysis Nephrology consultation and recommendations appreciated. She has previously had AV fistula created. Continue dialysis as per nephrology recommendations Continue blood pressure control, Lasix Started sevelamer and Nephrocaps, vitamin D Follow BMP/renal panel (4) Type 2 diabetes mellitus with obesity: Plan: ADA diet. Sliding scale coverage as needed. Typically [id number] A1c 6.4% in 02/2023 Continue current medical management Check hemoglobin A1c in the morning (5) Hypertension: Plan: Hydralazine uptitrated to 4 times daily for better blood pressure control. Blood pressure is now slightly low after cath and starting dialysis Monitor and make adjustments as needed Continue amlodipine 10 mg daily, hydralazine 25 Mg p.o. 4 times daily, Toprol-XL 150 mg daily, Lasix 40 Mg p.o. twice daily (6) Anemia: Plan: Hemoglobin has dropped somewhat despite removal of volume with hemodialysis. No overt melena or hematochezia. Parenteral iron ordered by nephrology. Fecal occult blood is negative Also found to be folate deficient with folate level of 3-started on Nephrocaps (7) Folate deficiency anemia: Plan: As above Plan DVT prophylaxis-heparin drip now discontinued Disposition-continued stay in PCU, eventual plan to discharge to home with outpatient dialysis Admission and Anticipated Discharge Date Admission Date: June 19, 2023 Subjective Patient seen after she returned from cardiac catheterization. No further chest pain. Has [address] to prevent bleeding given heavily calcified radial artery. No shortness of breath. Feels the swelling in her legs is improving since dialysis. Telemetry with normal sinus rhythm with rates in the 60s to 70s Physical Exam Constitutional: WD/WN, vitals as above Respiratory: normal respiratory effort, lungs clear to auscultation Cardiovascular: Rate/Rhythm: regular rate and regular rhythm Heart Sounds: no murmur Extremities: + edema (1+ pitting edema to knees bilaterally) Left wrist with [address], no bleeding Gastrointestinal (Abdomen): normal bowel sounds, soft, nontender, no hepatosplenomegaly Psychiatric: A+Ox3, euthymic affect Results & Data Results & Data Vital Signs (Past 12 Hours) Vital Signs Temp Pulse Pulse Resp BP BP Pulse Ox 06/23/23 19:03 36.4 C L 64 18 90/47 L 92 06/23/23 16:11 06/23/23 16:04 59 L 06/23/23 15:31 36.8 C 61 18 179/85 H 96 06/23/23 11:41 37.1 C 60 18 172/75 H 94 06/23/23 08:23 94 06/23/23 08:00 59 L 06/23/23 08:00 06/23/23 07:25 36.6 C 69 16 109/44 L 88 L O2 Del Method O2 Flow Rate 06/23/23 19:03 Nasal Cannula 2 06/23/23 16:11 Nasal Cannula 2 06/23/23 16:04 06/23/23 15:31 Nasal Cannula 2 06/23/23 11:41 Nasal Cannula 2 06/23/23 08:23 Nasal Cannula 2 06/23/23 08:00 06/23/23 08:00 Nasal Cannula 2 06/23/23 07:25 Room Air Laboratory Results CBC, BMP, repeat potassium, calcium, phosphorus, troponin reviewed PG Care Time/CCT Total # of Minutes Spent Total Time Spent with Patient: Total time spent is greater than 50% in coordination of care (as documented) at patient's floor/unit and/or counseling patient: Coding Level of Care Code 33988 SUB INP/OBS CARE 3/50MIN Diagnoses Diastolic CHF I50.30 Non-ST elevation [place] (NSTEMI) I21.4 ESRD (end stage renal disease) N18.6 Type 2 diabetes mellitus with obesity E11.69; E66.9 Essential hypertension I10 Hypertension type: essential hypertension Anemia D64.9 Folate deficiency anemia D52.9 (5) Hypertension Hypertension type: essential hypertension Qualified Code(s): I10 - Essential (primary) hypertension
--- NOTE | 2023-06-23 23:25 | Cardiac Catheterization ---
[facility] Data: Tank Calibrator Cardiac Status Clinical evaluation leading to the procedure CAD Presenation: Non STEMI Anginal Classification: CCS IV Diagnostic Physicians Name: Jeyson Lopes MD Closure Device Recommendations: PCI without planned CABG Cardiac Cath Procedure Full Procedure Date June 23, 2023 Pre-Procedure Diagnosis Pre-Procedure Diagnosis: Non STEMI AUC Score AUC Score: 8 Post-Procedure Diagnosis Post-Procedure Diagnosis: Severe CAD, Successful PCI and Normal Intracardiac Pressures Procedure(s) Performed Procedure(s) Performed: Coronary Angiography, Left Heart Cath, Drug Eluting Stent and Ultrasound Guided Vascular Access Manager Investment Jeyson Lopes MD Mind Reader(s) Indu Estimated Blood Loss Estimated Blood Loss: 15 Medication(s) Medication(s): Clopidogrel, Fentanyl, Heparin, Lidocaine 1%, Nicardipine, Nitroglycerin and Versed Summary of Findings Indication: High risk NSTEMI Access: 6 Fr left radial artery under ultrasound guidance Catheters: JR4, JL 3.5, EBU 3.5 guide Findings: LM -normal caliber, calcified, no significant disease LAD -medium caliber, heavily calcified, mild proximal diffuse disease, 95% mid segment disease involving takeoff of D2. Remainder of LAD without significant disease. 60 to 70% ostial medium caliber D2. Remainder of D2 without significant disease Circumflex -calcified, 40 to 50% proximal, 30% mid segment disease. Medium OM 3, left PLB without significant disease. RCA -medium caliber, dominant, diffuse disease up to 80% in the midsegment. 100% distal chronic total occlusion. Right PDA, posterior AV branch fill via [id number] collaterals. LVEDP -16 -- PCI -- Antithrombotic therapy: Heparin, clopidogrel Procedure: Left main cannulated with EBU 3.5 guide Pre-procedure flow PADMINI 3 Whisper wire passed across LAD lesion into distal vessel Life [employer] 50 wire placed into D2 LAD predilated with 2.0 and 2.5 balloons Attempt made to pass stent across mid LAD disease unsuccessful despite use of telescope support catheter LAD further dilated with 2.75 NC and 2.5 compliant balloons With the aid of telescope support catheter eventually able to pass stent across mid LAD disease Dilated lesion stented with 2.5 x 30 mm [place] LIBRA D2 rewired with ship pilot dispatcher 50 wire Stent post-dilated with 3.0 noncompliant balloon IC vasodilators administered for spasm Post procedure PADMINI 3 flow, stent well expanded with minimal residual stenosis. Residual ostial D2 stenosis but PADMINI-3 flow. No other apparent complications. Arterial Closure: TR band Summary: 1. Severe multivessel coronary artery disease -Calcified 95% mid LAD at bifurcation with D2. D2 60-70% ostial 80% mid RCA, 100% distal RCA chronic total occlusion. RPDA fills via [id number] collaterals 40-50% proximal circumflex 2. Normal intracardiac filling pressure 3. Successful PCI of mid LAD with single drug-eluting stent (2.5 x 30 mm [place] LIBRA; postdilated with 3.0 NC). Hemodynamics Rest Ao:: 146/41/78 Final Ao: 130/46/106 LV: 145/16 Recommendations Recommendations: PCI without planned CABG Specimens Specimens: None Radiation Exposure (mGy) 3410 Contrast (mls) 125 Anesthesia Moderate 7497-2001 Procedural Complication(s) None Disposition PCU I attest to the content of the Intraoperative Record and any orders documented therein. Any exceptions are noted below. [facility] Card Cath Procedure Codes Cardiac Catheterization Procedure 1: Cardiovascular Cath Procedures: 10774 Coronaries and LHC (+/-LV) Therapeutic Services & Ancillary Procedure 1: Cardiovascular Tx and Anc Procedures: 62705 Ultrasonic Guidance Vascular Access Moderate Sedation Procedure 1: Sedation/Anesthesia: 89463 Mod Sedation by the same physician;Init15 Min Child Age 5 & Up Procedure 2: Sedation/Anesthesia: 98533 Mod Sedation by the same physician; Ea [id number] Minutes Stenting Procedure 1: Cardiovascular Stent Procedures: 56974 Perc transcatheter placement of intracoronary stent(s), with ang PG Care Time/CCT Total # of Minutes Spent Total Time Spent with Patient: Total time spent is greater than 50% in coordination of care (as documented) at patient's floor/unit and/or counseling patient:
[2023-06-24] MEDS: CLOPIDOGREL BISULFATE 75 MG TAB PO SCH (07:45)
--- NOTE | 2023-06-24 08:36 | Nephrology Progress Note ---
Date of Service June 24, 2023 Assessment & Plan (1) ESRD (end stage renal disease): (2) Pulmonary edema: (3) Hypertension: (4) Anemia due to chronic kidney disease: (5) Secondary hyperparathyroidism of renal origin: (6) Metabolic acidosis: Plan ESKD most likely secondary to ? DM nephropathy with h/o HTN, DM with proteinuria. Renal ultrasound with no evidence of post renal obstruction but has bilateral renal cyst serological and paraproteinemia workup unremarkable. Biopsy was not done as it was relatively contraindicated considering bilateral small size kidney and multiple cyst and high likelihood of finding diabetic nephropathy and atherosclerotic disease. Had rt arm basilic vein endovascular AV fistula placement on 03/27/2021, had transposition in May 2021. Presented on 06/19/2023 with overall feeling poorly, noticing some shortness of breath. Kidney function worsened significantly, with volume overload, electrolyte abnormality and started on dialysis on admission however later infiltrated right after started on dialysis and dialysis was stopped and Had first dialysis treatment on 06/20/2023. On 06/22/2023 she was noted to have elevated troponin and acute EKG changes with occasional chest pain and eventually had cardiac cath on 06/23/2023 showing 95% occlusion of LAD and chronic total occlusion of RCA, had LAD stent. Overall feeling well but continues to have significant issues with AV fistula with repeated infiltration and elevated venous pressure. -- Dialysis for 4 hours now -- continue on Venofer 200 mg daily for total 5 doses. Waiting on outpatient dialysis set up at [facility] -- Epogen 40,000 units x 1 dose given on 06/20/2023 --Nephro Daily, resume Renvela, 1 tablet each meal -- Right arm nephrology precaution ( AVF), discussed with Dr. Subramanian and plan for a fistulogram Thursday, hold discharge until then. Admission and Anticipated Discharge Date Admission Date: June 19, 2023 Roman Dyson was seen and evaluated during dialysis this morning. Continues to have issues with cannulation of the AV fistula and high venous pressure had small infiltration again however eventually able to cannulate both neural slightly higher up with 17-gauge needle and low blood flow. Had cardiac cath yesterday had LAD stent for more than 95% stenosis and noted to have chronic total occlusion of the right coronary artery. Has been otherwise feeling well, she was able to get out of bed to chair without getting significantly short of breath or lightheaded. Hemoglobin 7.8 , on Venofer, received Epogen during dialysis on 06/20/23.. BP improved. Review of Systems Review of Systems: Detailed review of system was done and pertinent positives and negatives are mentioned above. Physical Exam Constitutional: WD/WN, vitals as above + ill appearing; no acute distress Eyes: + anicteric sclerae Neck: normal visual inspection Respiratory: no respiratory distress Auscultation: lungs clear to auscultation bilaterally, + diminished lung sounds and + crackles Cardiovascular: Rate/Rhythm: regular rate and regular rhythm Heart Sounds: normal S1 and normal S2 Extremities: + edema and + AV fistula (thrill and Bruit) Skin: no rashes, warm and dry Neurologic: no focal motor deficits Psychiatric: Orientation: alert and oriented x 3 Results & Data Vital Signs (Past 12 Hours) Vital Signs Temp Pulse Resp BP Pulse Ox O2 Del Method O2 Flow Rate 06/24/23 07:19 36.8 C 69 16 123/54 L 90 Room Air 06/24/23 04:18 36.9 C 68 18 127/45 L 95 Nasal Cannula 2.0 06/23/23 23:15 36.7 C 61 18 130/63 98 Nasal Cannula 2.0 PG Care Time/CCT Total # of Minutes Spent Total Time Spent with Patient: Total time spent is greater than 50% in coordination of care (as documented) at patient's floor/unit and/or counseling patient: Coding Level of Care Code 58975 SUB INP/OBS CARE 3/50MIN Diagnoses ESRD (end stage renal disease) N18.6 Pulmonary edema J81.1 Essential hypertension I10 Hypertension type: essential hypertension Anemia due to chronic kidney disease N18.9; D63.1 Secondary hyperparathyroidism of renal origin N25.81 Metabolic acidosis E87.20 (3) Hypertension Hypertension type: essential hypertension Qualified Code(s): I10 - Essential (primary) hypertension
[2023-06-24 10:06] LABS: Basophils # (auto) 0.05 K/uL (0.00-0.20); Basophils % (auto) 0.5 %; Eosinophils # (auto) 0.27 K/uL (0.00-0.50); Eosinophils % (auto) 2.7 %; Hematocrit (blood only) 22.7 % (37.0-47.0); Hemoglobin 7.4 g/dl (12.0-16.0); Lymphocytes # (auto) 0.98 K/uL (1.20-3.40); Lymphocytes % (auto) 9.9 %; Mean Corpuscular Hemoglobin 31.9 pg (25.0-34.0); Mean Corpuscular Hgb Conc 32.6 g/dL (32.0-36.0); Mean Corpuscular Volume 97.8 fL (80.0-100.0); Mean Platelet Volume 11.8 fL (9.4-12.4); Monocytes # (auto) 1.12 K/uL (0.11-0.59); Monocytes % (auto) 11.3 %; Neutrophils # (auto) 7.37 K/uL (1.40-6.50); Neutrophils % (auto) 74.6 %; Nucleated RBC # (auto) 0.02 K/uL (0.00-0.12); Nucleated RBC % (auto) 0.2 %; Platelet Count 218 K/uL (130-400); RDW Coefficient of Variation 13.2 % (11.5-14.5); RDW Standard Deviation 45.4 fL (36.4-46.3); Red Blood Count 2.32 M/uL (4.20-5.40); White Blood Count 9.89 K/ul (4.8-10.8)
[2023-06-24 10:27] LABS: Albumin Level 3.2 gm/dl (3.4-5.0); BUN Creatinine Ratio 7.8 (10-20); Calcium 10.1 mg/dl (8.6-10.3); Creatinine Clr Calc Pharmacy 8.6 ml/min; Est GFR (African American) 7.7 ml/min; Est GFR (Non-African American) 6.7 ml/min; Phosphorus 5.4 mg/dl (2.5-4.9); Potassium 3.4 mmol/L (3.5-5.1)
[2023-06-24 10:34] LABS: Anisocytosis Present; Polychromasia 1+
[2023-06-24 11:04] LABS: Estimated Average Glucose 128 mg/dl; Hemoglobin A1C 6.1 % (4.5-5.6)
--- NOTE | 2023-06-24 12:49 | Cardiology Progress Note ---
Date of Service June 24, 2023 Assessment & Plan (1) CAD (coronary artery disease): Plan: -mid LAD LIBRA, 2.5 x 30mm [place], deployed by Dr. Lopes yesterday. -60-70% ostial D2, 40-50% proximal LCx, 80% mid RCA, 100% distal RCA with good collateralization. -agree with change from simvastatin to atorvastatin. -continue aspirin, clopidogrel, amlodipine, and metoprolol succinate. -she would like to follow-up with Dr. Kumar in the outpatient setting. (2) Acute on chronic diastolic CHF (congestive heart failure): Plan: -clearly secondary to her end-stage renal disease. -improved with hemodialysis. -diuretic management per Nephrology. (3) Hypertension: Plan: -blood pressure adequately controlled. (4) Hypercholesterolemia: Plan: -continue atorvastatin. (5) ESRD (end stage renal disease): Plan: -management per Nephrology. Admission and Anticipated Discharge Date Admission Date: June 19, 2023 Subjective The patient seen in the hemodialysis unit. She is resting comfortably in bed without complaints of chest pain or dyspnea. Physical Exam Physical Exam: In general is a mildly obese white female in no acute distress. HEENT exam is negative. Neck is supple with full carotid upstrokes. There are no carotid bruits. Jugular is pressure is flat at 90. There is no thyromegaly. Car diovascular exam reveals a regular rhythm with distant heart sounds. No obvious murmurs. Lungs note bibasilar rales. Abdomen is obese without bruits. Extremities note a functioning fistula in the right upper extremity. Left wrist is dressed. A local ecchymosis is noted. No bruit. Results & Data Vital Signs (Past 12 Hours) Vital Signs Temp Pulse Pulse Pulse Resp BP BP 06/24/23 11:00 61 130/42 L 06/24/23 10:30 56 L 119/41 L 06/24/23 10:00 64 122/44 L 06/24/23 09:25 36.7 C 64 06/24/23 07:19 36.8 C 69 16 123/54 L 06/24/23 04:18 36.9 C 68 18 127/45 L Pulse Ox O2 Del Method O2 Flow Rate 06/24/23 11:00 06/24/23 10:30 06/24/23 10:00 06/24/23 09:25 06/24/23 07:19 90 Room Air 06/24/23 04:18 95 Nasal Cannula 2.0 Laboratory Results dishwasher busser is benign. PG Care Time/CCT Total # of Minutes Spent Total Time Spent with Patient: Total time spent is greater than 50% in coordination of care (as documented) at patient's floor/unit and/or counseling patient: Coding Level of Care Code 15142 SUB INP/OBS CARE 3/50MIN Diagnoses CAD (coronary artery disease) I25.10 Acute on chronic diastolic CHF (congestive heart failure) I50.33 Essential hypertension I10 Hypertension type: essential hypertension Hypercholesterolemia E78.00 ESRD (end stage renal disease) N18.6 (3) Hypertension Hypertension type: essential hypertension Qualified Code(s): I10 - Essential (primary) hypertension
[2023-06-24] MEDS: hydrALAZINE HCL 25 MG TAB PO SCH ×2 (14:21→20:16)
[2023-06-24] MEDS: ATORVASTATIN 40 MG TAB PO SCH (14:21)
--- NOTE | 2023-06-24 14:52 | Consultation ---
Date of Consultation June 24, 2023 Assessment & Plan (1) ESRD (end stage renal disease): Pt with RUE basilic v AVF, just recently attempted use for HD. Unsuccessful x2, finally able to partially run her at lower BFR today. Pt discussed with Dr Subramanian, recommends pt undergo RUE fistulagram with intervention and possible permcath insertion, if needed. Procedure discussed with pt, she is agreeable. This will be scheduled for Thursday. History of Present Illness Reason for Consultation: ESRD Attending Physician: Cherelle Mcdonough MD History of Present Illness 72 yo f with hx of CKD, CHF, [place], DMII, HTN, hypercholesterolemia, gout, anemia, admitted with NSTEMI and underwent coronary catheterization with LIBRA placement, seen in consultation today regarding her AV access for HD. Pt known to Dr Subramanian for RUE percutaneous AVF creation in 2020 and subsequent basilic v transposition in 2021 in preparation for future HD needs. Pt attempted to start HD 5 days ago, however, the HD unit noted high venous pressures and multiple infiltrations. They were finally able to run her at 300ml/min for 4 hr today, but infiltrated and had high venous pressures. Pt admits some numbness to R 1-3 fingers, and mild chronic edema of R arm. Denies ALANIZ, fever, chest pain, SOB, abd pain, N/V, rest pain, claudication, other complaints. No imaging performed. Allergies Allergy/AdvReac Type Severity Reaction Status Date / Time insect venom Allergy Intermediate Swelling Verified 06/19/23 11:57 adhesive tape Allergy Mild Rash Verified 06/19/23 11:57 dulaglutide [From [facility]] AdvReac Mild Constipation, Verified 06/19/23 11:57 vomiting Home Medications Medication Instructions Recorded Confirmed Type lancets (Accu-Chek Fastclix Lancet #50 ea 12/16/18 05/20/23 History Drum) aspirin 81 mg chewable tablet 81 mg PO QAM 11/07/19 06/19/23 History mecobalamin (vitamin B12) 1,000 1,000 mcg PO QAM 09/13/20 06/19/23 History mcg chewable tablet (B12 Active) pen needle, diabetic 32 gauge x #100 ea 09/13/20 05/20/23 Rx 5/32" (BD Ultra-Fine Nicki Pen Needle) FreeStyle Kvng 2 [place] (flash #1 ea 10/18/20 05/20/23 Rx glucose scanning reader) blood sugar diagnostic (Accu-Chek 10/15/21 05/20/23 History SmartView Test Strips) cholecalciferol (vitamin D3) 62.5 62.5 mcg PO HS 06/06/22 06/19/23 History mcg (2,500 unit) capsule metoprolol succinate 50 mg 50 mg PO QAM #90 tabs 07/22/22 06/19/23 Rx tablet,extended release 24 hr flash glucose sensor (FreeStyle #2 ea 12/16/22 05/20/23 Rx Kvng 2 Sensor kit) insulin aspart U-100 100 unit/mL 14 unit subcut QAM PRN bg LEVELS 03/10/23 06/19/23 History (3 mL) subcutaneous pen (Novolog FlexPen U-100 Insulin aspart) sodium bicarbonate 650 mg tablet 650 mg PO BID #60 tabs 04/10/23 06/19/23 Rx amlodipine 10 mg tablet 10 mg PO QAM #90 tabs 06/16/23 06/19/23 Rx hydralazine 25 mg tablet 25 mg PO BID #180 tabs 06/16/23 06/19/23 Rx metoprolol succinate 100 mg 100 mg PO QAM #90 tabs 06/16/23 06/19/23 Rx tablet,extended release 24 hr buspirone 7.5 mg tablet 7.5 mg PO DAILY PRN anxiety 06/19/23 06/19/23 History calcitriol 0.5 mcg capsule 0 mcg PO DAILY 06/19/23 06/19/23 History ferrous gluconate 324 mg (38 mg 324 mg PO BID 06/19/23 06/19/23 History iron) tablet insulin degludec 100 unit/mL (3 8 - 14 unit subcut .BIDAFTERMEALS 06/19/23 06/19/23 History mL) subcutaneous pen (Tresiba PRN BG levels FlexTouch U-100 insulin) sevelamer HCl 800 mg tablet 0 mg PO TID 06/19/23 06/19/23 History simvastatin 20 mg tablet 20 mg PO QPM #90 tabs 06/19/23 06/19/23 Rx triamcinolone acetonide 0.1 % 1 applic topical DAILY 06/19/23 06/19/23 History topical ointment Patient History Medical History Folate deficiency anemia Metabolic acidosis Stage 5 chronic kidney disease not on chronic dialysis AV fistula right arm--per pt not currently using yet Periodontal pocket Carious teeth Vitamin D deficiency Anemia due to chronic kidney disease Sleep apnea Per 2009 polysomnography (per 02/2021 pulmonology note)- pt declined treatment or repeat study-NO DEVICE Diastolic CHF Anxiety Associated dyspnea per pulmonology Insulin-requiring or dependent type II diabetes mellitus Obesity Chronic kidney disease, stage 4 (severe) Secondary hyperparathyroidism of renal origin History of DVT (deep vein thrombosis) Multiple "small" DVTs (25+ years ago, 6 years ago) Fibroids Gout History of hypothyroidism HX-NO MEDS Hypercholesterolemia Hypertension Sensorineural hearing loss (SNHL) of both ears Surgical History S/P arteriovenous (AV) fistula creation RIGHT arm 03/27/21 @ [facility] Dr. Subramanian History of dental surgery History of surgery on arm Right Arm basilic vein transposition 2nd stage @ [facility] Dr. Subramanian 06/10/21 History of colonoscopy Family History Mother Diabetes Renal cell cancer Heart disease Colorectal cancer Hypertension Brother Diabetes Renal cell cancer Heart disease Lung cancer Hypertension Gallbladder disease Father Prostate cancer Heart disease Hypertension Grandmother (Maternal) Colorectal cancer Aunt Diabetes Other Alzheimer disease No family history of adverse response to anesthesia Denies family history of Ovarian cancer Myocardial infarction Breast cancer Social History Smoking Status: Never smoker Second Hand Exposure: No; Do You Dip or Chew Tobacco: No; Hx Alcohol Use: Yes Alcohol type: wine Alcohol Intake Frequency: Monthly or Less Hx Substance Use: No Preferred Language: Danish Communication Ability: Effective Visual Impairment: Limited Hearing Ability: Hard of Hearing Fishing Manager Required: No Beliefs That Will Affect Care: None marital status: Single Current Living Situation: Alone current occupational status: 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 How many Children do You have: 0 Feels Safe at Home: Yes Childhood Exposure to Second-Hand Smoke: No (very little ) Diet: diabetic caffeine: Yes (drinks iced tea every day, sometimes soda ) Dental Care, Regularly: Yes Physical Activity Frequency: 1-2 Times per Week Physical Activity Frequency Comment: weight training, walking Seatbelt Use: always Sunscreen Use: Yes (most times ) Assistive Devices: None Review of Systems Review of Systems: All systems reviewed & are unremarkable except as noted in HPI & below Physical Exam Constitutional: WD/WN, vitals as above + obese, cooperative and comfortable; not in distress Neck: trachea midline Respiratory: normal respiratory effort, lungs clear to auscultation Auscultation: + diminished lung sounds Cardiovascular: Rate/Rhythm: regular rate and regular rhythm Vessels: femoral pulses present, dorsalis pedis pulses present and radial pulses present; + abnormal peripheral pulses Extremities: normal capillary refill, + edema (RUE) and + AV fistula (RUE + thrill/bruit throughout. ) Gastrointestinal (Abdomen): Inspection/Auscultation: abdomen normal to inspection and normal bowel sounds Percussion/Palpation: abdomen soft; abdomen nontender Musculoskeletal: no cyanosis or clubbing, extremities motor strength 5/5 Skin: no rashes, warm and dry Neurologic: moves all extremities and awake; no focal motor deficits and not confused Psychiatric: A+Ox3, euthymic affect Results & Data Vital Signs (Past 12 Hours) Vital Signs Temp Pulse Pulse Pulse Resp BP BP 06/24/23 14:27 36.5 C 66 23 124/64 06/24/23 13:00 59 L 133/31 L 06/24/23 12:30 60 137/39 L 06/24/23 12:00 57 L 117/46 L 06/24/23 11:30 59 L 126/46 L 06/24/23 11:00 61 130/42 L 06/24/23 10:30 56 L 119/41 L 06/24/23 10:00 64 122/44 L 06/24/23 09:25 36.7 C 64 06/24/23 07:19 36.8 C 69 16 123/54 L 06/24/23 04:18 36.9 C 68 18 127/45 L Pulse Ox O2 Del Method O2 Flow Rate 06/24/23 14:27 Room Air 06/24/23 13:00 06/24/23 12:30 06/24/23 12:00 06/24/23 11:30 06/24/23 11:00 06/24/23 10:30 06/24/23 10:00 06/24/23 09:25 06/24/23 07:19 90 Room Air 06/24/23 04:18 95 Nasal Cannula 2.0
--- NOTE | 2023-06-24 16:51 | Hospitalist Progress Note ---
Date of Service June 24, 2023 Assessment & Plan (1) Diastolic CHF: Plan: Acute on chronic HFpEF due to end-stage renal disease. Echocardiogram here with EF 50-55%, no wall motion abnormalities Volume management now with hemodialysis Continue Lasix twice daily Continue blood pressure control with hydralazine, amlodipine, metoprolol Strict I's and O's, daily weights, low-sodium diet (2) Non-ST elevation MT (NSTEMI): Plan: Patient had significant angina on the morning of 06/[address] segment depression on EKG with T wave inversions. Resolved with sublingual nitroglycerin Initial troponin elevated at 430 and then peaked at 10,000. Was started on a heparin drip and Nitropaste Appreciate cardiology consultation and recommendations Cardiac echo negative for regional wall motion abnormalities Cardiac catheterization on 06/23 with 95% stenosis in the mid LAD involving the takeoff of D2, RCA 100% distal chronic total occlusion with collaterals, circumflex calcified with 40 to 50% proximal and 30% mid segment disease. She had a single stent placed in the LAD Continue aspirin, added Plavix. Changed simvastatin to atorvastatin for high intensity statin Continue Toprol-XL Follow on telemetry for arrhythmias-none thus far Improving, f/u with Cardiology in office after discharge (3) ESRD (end stage renal disease): Plan: Has now progressed to end-stage renal disease requiring hemodialysis Nephrology consultation and recommendations appreciated. She has previously had AV fistula created but is having access issues with this--> Vascular plans for fistulogram on Thursday and possible tunneled IJ perm cath placement Continue dialysis as per nephrology recommendations Continue blood pressure control, Lasix Started sevelamer and Nephrocaps, vitamin D Follow BMP/renal panel (4) Type 2 diabetes mellitus with obesity: Plan: ADA diet. Sliding scale coverage as needed. Typically [id number] A1c 6.4% in 02/2023 and now only 6.1% Continue current medical management (5) Hypertension: Plan: Hydralazine uptitrated to 4 times daily for better blood pressure control but now blood pressure slightly low after starting dialysis Continue amlodipine 10 mg daily Decrease hydralazine to 25 Mg p.o.bid Continue Toprol-XL 150 mg daily Continue Lasix 40 Mg p.o. twice daily (6) Anemia: Plan: Hemoglobin has dropped somewhat despite removal of volume with hemodialysis-down further today to 7.4. No overt melena or hematochezia. Fecal occult blood is negative Parenteral iron ordered by nephrology. Also found to be folate deficient with folate level of 3-started on Nephrocaps Follow CBC (7) Folate deficiency anemia: Plan: As above Plan DVT prophylaxis-heparin drip now discontinued, on DAPT Disposition-continued stay in PCU, eventual plan to discharge to home with outpatient dialysis possibly Thursday or Sat after AV fistulogram/perm cath placement Admission and Anticipated Discharge Date Admission Date: June 19, 2023 Subjective Has soreness in left wrist from cath. Had HD today and there were issues with her AVF. SHe is disappointed about possibility of needing a perm cath. Denies CP, SOB. Is moving bowels, appetite not great. Tele with SB, NSR, rates 50-70s Physical Exam Constitutional: WD/WN, vitals as above Respiratory: normal respiratory effort, lungs clear to auscultation Cardiovascular: Rate/Rhythm: regular rate and regular rhythm Heart Sounds: no murmur Extremities: + edema (1+ pitting edema to knees bilaterally) Gastrointestinal (Abdomen): normal bowel sounds, soft, nontender, no hepatosplenomegaly Musculoskeletal: left wrist with ecchymosis, no hematoma Psychiatric: A+Ox3, euthymic affect Results & Data Results & Data Vital Signs (Past 12 Hours) Vital Signs Temp Pulse Pulse Pulse Resp BP BP 06/24/23 15:53 37.0 C 57 L 18 115/57 L 06/24/23 14:27 36.5 C 66 23 06/24/23 13:57 36.4 C L 64 165/54 H 06/24/23 13:30 58 L 131/37 L 06/24/23 13:00 59 L 133/31 L 06/24/23 12:30 60 137/39 L 06/24/23 12:00 57 L 117/46 L 06/24/23 11:30 59 L 126/46 L 06/24/23 11:00 61 130/42 L 06/24/23 10:30 56 L 119/41 L 06/24/23 10:00 64 122/44 L 06/24/23 09:25 36.7 C 64 06/24/23 07:19 36.8 C 69 16 BP Pulse Ox O2 Del Method 06/24/23 15:53 96 Room Air 06/24/23 14:27 124/64 Room Air 06/24/23 13:57 06/24/23 13:30 06/24/23 13:00 06/24/23 12:30 06/24/23 12:00 06/24/23 11:30 06/24/23 11:00 06/24/23 10:30 06/24/23 10:00 06/24/23 09:25 06/24/23 07:19 123/54 L 90 Room Air Laboratory Results CBC, BMP, mag, phos, and HgbA1C reviewed PG Care Time/CCT Total # of Minutes Spent Total Time Spent with Patient: Total time spent is greater than 50% in coordination of care (as documented) at patient's floor/unit and/or counseling patient: Coding Level of Care Code 34232 SUB INP/OBS CARE 3/50MIN Diagnoses Diastolic CHF I50.30 Non-ST elevation MT (NSTEMI) I21.4 ESRD (end stage renal disease) N18.6 Type 2 diabetes mellitus with obesity E11.69; E66.9 Essential hypertension I10 Hypertension type: essential hypertension Anemia D64.9 Folate deficiency anemia D52.9 (5) Hypertension Hypertension type: essential hypertension Qualified Code(s): I10 - Essential (primary) hypertension
[2023-06-25 06:22] LABS: Basophils # (auto) 0.03 K/uL (0.00-0.20); Basophils % (auto) 0.4 %; Eosinophils # (auto) 0.21 K/uL (0.00-0.50); Eosinophils % (auto) 2.7 %; Hematocrit (blood only) 22.6 % (37.0-47.0); Hemoglobin 7.3 g/dl (12.0-16.0); Immature Granulocytes # (auto) 0.04 K/uL (0.01-0.20); Immature Granulocytes % (auto) 0.5 %; Lymphocytes # (auto) 1.26 K/uL (1.20-3.40); Mean Corpuscular Hemoglobin 32.2 pg (25.0-34.0); Mean Corpuscular Hgb Conc 32.3 g/dL (32.0-36.0); Mean Corpuscular Volume 99.6 fL (80.0-100.0); Mean Platelet Volume 11.5 fL (9.4-12.4); Monocytes # (auto) 0.99 K/uL (0.11-0.59); Monocytes % (auto) 12.6 %; Neutrophils # (auto) 5.33 K/uL (1.40-6.50); Neutrophils % (auto) 67.8 %; Platelet Count 195 K/uL (130-400); RDW Coefficient of Variation 13.9 % (11.5-14.5); RDW Standard Deviation 46.6 fL (36.4-46.3); Red Blood Count 2.27 M/uL (4.20-5.40); White Blood Count 7.86 K/ul (4.8-10.8)
[2023-06-25 06:48] LABS: Albumin Level 3.1 gm/dl (3.4-5.0); Calcium 9.6 mg/dl (8.6-10.3); Creatinine Clr Calc Pharmacy 13.8 ml/min; Est GFR (African American) 13.8 ml/min; Est GFR (Non-African American) 11.9 ml/min; Phosphorus 3.6 mg/dl (2.5-4.9); Potassium 3.5 mmol/L (3.5-5.1)
[2023-06-25 07:19] LABS: Polychromasia 1+
--- NOTE | 2023-06-25 10:35 | Nephrology Progress Note ---
Date of Service June 25, 2023 Assessment & Plan (1) ESRD (end stage renal disease): (2) Pulmonary edema: (3) Hypertension: (4) Anemia due to chronic kidney disease: (5) Secondary hyperparathyroidism of renal origin: (6) Metabolic acidosis: Plan ESKD most likely secondary to ? DM nephropathy with h/o HTN, DM with proteinuria. Renal ultrasound with no evidence of post renal obstruction but has bilateral renal cyst serological and paraproteinemia workup unremarkable. Biopsy was not done as it was relatively contraindicated considering bilateral small size kidney and multiple cyst and high likelihood of finding diabetic nephropathy and atherosclerotic disease. Had rt arm basilic vein endovascular AV fistula placement on 03/27/2021, had transposition in May 2021. Presented on 06/19/2023 with overall feeling poorly, noticing some shortness of breath. Kidney function worsened significantly, with volume overload, electrolyte abnormality and started on dialysis on admission however later infiltrated right after started on dialysis and dialysis was stopped and Had first dialysis treatment on 06/20/2023. On 06/22/2023 she was noted to have elevated troponin and acute EKG changes with occasional chest pain and eventually had cardiac cath on 06/23/2023 showing 95% occlusion of LAD and chronic total occlusion of RCA, had LAD stent. Overall feeling well but continues to have significant issues with AV fistula with repeated infiltration and elevated venous pressure. -- Scheduled for fistulogram tomorrow and then dialysis after. If she clinically otherwise stable after dialysis tomorrow, tentatively plan to be discharged and then she will go for outpatient dialysis next week. Will continue on diuretics on discharge. -- continue on Venofer 200 mg daily for total 5 doses. Waiting on outpatient dialysis set up at [facility] [place] -- Epogen 40,000 units x 1 dose given on 06/20/2023 --Will schedule for 1 unit of blood transfusion today --Nephro Daily, resume Renvela, decrease dose to only once with dinner -- Right arm nephrology precaution ( AVF) Admission and Anticipated Discharge Date Admission Date: June 19, 2023 Roman Dyson was seen this morning, overall she is feeling a lot better. She reports feeling wiped out for few hours after dialysis but by evening she started to feel better and has been feeling quite well since then. Blood pressure slightly low this morning but asymptomatic. Her hemoglobin has been dropping, down to 7.3 this morning, received Epogen and getting Venofer. Phosphorus improved to 3.7. Review of Systems Review of Systems: Detailed review of system was done and pertinent positives and negatives are mentioned above. Physical Exam Constitutional: WD/WN, vitals as above + ill appearing; no acute distress Eyes: + anicteric sclerae Neck: normal visual inspection Respiratory: no respiratory distress Auscultation: lungs clear to auscultation bilaterally, + diminished lung sounds and + crackles Cardiovascular: Rate/Rhythm: regular rate and regular rhythm Heart Sounds: normal S1 and normal S2 Extremities: + edema and + AV fistula (thrill and Bruit) Skin: no rashes, warm and dry Neurologic: no focal motor deficits Psychiatric: Orientation: alert and oriented x 3 Results & Data Vital Signs (Past 12 Hours) Vital Signs Temp Pulse Pulse Resp BP BP Pulse Ox 06/25/23 08:30 37.1 C 66 18 110/41 L 92 06/25/23 03:47 37.1 C 65 18 129/50 L 92 06/24/23 22:56 36.9 C 67 18 108/45 L 94 O2 Del Method 06/25/23 08:30 Room Air 06/25/23 03:47 Room Air 06/24/23 22:56 Room Air PG Care Time/CCT Total # of Minutes Spent Total Time Spent with Patient: Total time spent is greater than 50% in coordination of care (as documented) at patient's floor/unit and/or counseling patient: Coding Level of Care Code 36817 SUB INP/OBS CARE 2/35MIN Diagnoses ESRD (end stage renal disease) N18.6 Pulmonary edema J81.1 Essential hypertension I10 Hypertension type: essential hypertension Anemia due to chronic kidney disease N18.9; D63.1 Secondary hyperparathyroidism of renal origin N25.81 Metabolic acidosis E87.20 (3) Hypertension Hypertension type: essential hypertension Qualified Code(s): I10 - Essential (primary) hypertension
[2023-06-25] MEDS ORDERED: SODIUM CHLORIDE 0.9% 250 ML IV PRN (10:40)
--- NOTE | 2023-06-25 14:17 | Hospitalist Progress Note ---
Date of Service June 25, 2023 Assessment & Plan (1) Diastolic CHF: Plan: Acute on chronic HFpEF due to end-stage renal disease. Echocardiogram here with EF 50-55%, no wall motion abnormalities Volume management now with hemodialysis -improved, weight is down 7 kg since admission Continue Lasix twice daily here and on discharge Continue blood pressure control with hydralazine, amlodipine, metoprolol Strict I's and O's, daily weights, low-sodium diet (2) Non-ST elevation FL (NSTEMI): Plan: Patient had significant angina on the morning of 06/[address] segment depression on EKG with T wave inversions. Resolved with sublingual nitroglycerin Initial troponin elevated at 430 and then peaked at 10,000. Was started on a heparin drip and Nitropaste Appreciate cardiology consultation and recommendations Cardiac echo negative for regional wall motion abnormalities Cardiac catheterization on 06/23 with 95% stenosis in the mid LAD involving the takeoff of D2, RCA 100% distal chronic total occlusion with collaterals, circumflex calcified with 40 to 50% proximal and 30% mid segment disease. She had a single stent placed in the LAD No further angina. Has some ecchymosis at radial cath site but no hematoma Continue aspirin, added Plavix. Changed simvastatin to atorvastatin for high intensity statin Continue Toprol-XL Follow on telemetry for arrhythmias-none thus far Improving, f/u with Cardiology in office after discharge (3) ESRD (end stage renal disease): Plan: Has now progressed to end-stage renal disease requiring hemodialysis Nephrology consultation and recommendations appreciated. She has previously had AV fistula created but is having access issues with this--> Vascular plans for fistulogram on Thursday and possible tunneled IJ perm cath placement Continue dialysis as per nephrology recommendations Continue blood pressure control, Lasix Started sevelamer once daily with dinner,continue Nephrocaps, vitamin D Follow BMP panel Outpatient HD plans in place for at [facility]-awaiting chair time to see if should go on Thursday after discharge (4) Anemia: Plan: Hemoglobin has dropped somewhat despite removal of volume with hemodialysis-down further today to 7.3, BPs low normal No overt melena or hematochezia. Fecal occult blood is negative. Does have ecchymosis at radial cath site but no hematoma Parenteral iron x 5 doses ordered by nephrology. Also found to be folate deficient with folate level of 3-started on Nephrocaps Transfuse 1 unit PRBCs on Follow CBC (5) Type 2 diabetes mellitus with obesity: Plan: ADA diet. Sliding scale coverage as needed. Typically [id number] A1c 6.4% in 02/2023 and now only 6.1% Continue current medical management (6) Hypertension: Plan: Hydralazine uptitrated to 4 times daily for better blood pressure control but now blood pressure slightly low after starting dialysis Continue amlodipine 10 mg daily Decreased hydralazine back to home dose of 25 Mg p.o.bid Continue Toprol-XL 150 mg daily Continue Lasix 40 Mg p.o. twice daily (7) Folate deficiency anemia: Plan: As above Plan DVT prophylaxis-heparin drip now discontinued, on DAPT Disposition-continued stay in PCU, plan to discharge to home with outpatient dialysis after AV fistulogram/perm cath placement and hemodialysis on Thursday IF STABLE AND NO BLEEDING ISSUES Admission and Anticipated Discharge Date Admission Date: June 19, 2023 Anticipated date of discharge: 06/26/23 Subjective Pt feeling better today. Consented for blood transfusion. I discussed her care with Nephrology. Pt is eating/improved appetite now, moving bowels. Tele with NSR, rates 50-60s Physical Exam Constitutional: WD/WN, vitals as above Respiratory: normal respiratory effort, lungs clear to auscultation Cardiovascular: Rate/Rhythm: regular rate and regular rhythm Heart Sounds: no murmur Extremities: + edema (trace+ pitting edema to knees bilaterally) Gastrointestinal (Abdomen): normal bowel sounds, soft, nontender, no hepatosplenomegaly Skin: ecchymosis left forearm Psychiatric: A+Ox3, euthymic affect Results & Data Results & Data Vital Signs (Past 12 Hours) Vital Signs Temp Pulse Pulse Resp BP BP BP 06/25/23 13:09 37.0 C 71 18 102/40 L 06/25/23 11:02 37.2 C 64 17 102/40 L 06/25/23 08:30 37.1 C 66 18 110/41 L 06/25/23 03:47 37.1 C 65 18 129/50 L Pulse Ox O2 Del Method 06/25/23 13:09 91 06/25/23 11:02 95 Room Air 06/25/23 08:30 92 Room Air 06/25/23 03:47 92 Room Air Laboratory Results CBC, BMP, phos reviewed PG Care Time/CCT Total # of Minutes Spent Total Time Spent with Patient: Total time spent is greater than 50% in coordination of care (as documented) at patient's floor/unit and/or counseling patient: Coding Level of Care Code 90087 SUB INP/OBS CARE 3/50MIN Diagnoses Diastolic CHF I50.30 Non-ST elevation FL (NSTEMI) I21.4 ESRD (end stage renal disease) N18.6 Anemia D64.9 Type 2 diabetes mellitus with obesity E11.69; E66.9 Essential hypertension I10 Hypertension type: essential hypertension Folate deficiency anemia D52.9 (6) Hypertension Hypertension type: essential hypertension Qualified Code(s): I10 - Essential (primary) hypertension
[2023-06-25] MEDS: SEVELAMER HCL 800 MG TABLET PO SCH (18:17)
[2023-06-26 06:39] LABS: Hemoglobin 8.6 g/dl (12.0-16.0); Mean Corpuscular Hemoglobin 31.2 pg (25.0-34.0); Mean Corpuscular Hgb Conc 31.9 g/dL (32.0-36.0); Mean Corpuscular Volume 97.8 fL (80.0-100.0); Mean Platelet Volume 11.7 fL (9.4-12.4); Platelet Count 173 K/uL (130-400); RDW Coefficient of Variation 15.9 % (11.5-14.5); RDW Standard Deviation 51.6 fL (36.4-46.3); Red Blood Count 2.76 M/uL (4.20-5.40); White Blood Count 8.46 K/ul (4.8-10.8)
[2023-06-26 07:04] LABS: Calcium 9.9 mg/dl (8.6-10.3); Potassium 3.6 mmol/L (3.5-5.1)
[2023-06-26 07:13] LABS: BUN Creatinine Ratio 5.4 (10-20); Creatinine Clr Calc Pharmacy 10.6 ml/min; Est GFR (African American) 10.1 ml/min; Est GFR (Non-African American) 8.7 ml/min; Phosphorus 4.4 mg/dl (2.5-4.9)
--- NOTE | 2023-06-26 07:39 | History & Physical Bridge Note ---
Date of Service June 26, 2023 History & Physical Bridge Note Patient for a fistulogram today for malfunctioning fistula. I have discussed the risks options and benefits of the procedure with the patient. The patient understands the risks options and benefits and agrees to the procedure. I have examined the patient, reviewed the History & Physical and in the interval since the performance of the History & Physical I have noted the following changes of clinical significance: no changes noted
[2023-06-26] MEDS: SODIUM CHLORIDE 0.9% 1,000 ML IV SCH (07:54)
[2023-06-26] MEDS: ceFAZolin 2000MG 2,000 MG/15 ML SYR IV ONE (07:56)
[2023-06-26] MEDS: ceFAZolin 2,000 MG/15 ML IV PUSH IV ONE (08:14)
[2023-06-26] MEDS ORDERED: IOVERSOL 50ml IV PRN (08:14)
[2023-06-26] MEDS: MIDAZOLAM HCL 1 MG/ML 2ML VIAL ONE (08:25)
[2023-06-26] MEDS: fentaNYL citrate PF 100 MCG/2 ML VIAL ONE (08:25)
--- NOTE | 2023-06-26 08:26 | Pre Anesthesia Assessment ---
Date of Service June 26, 2023 Pre Sedation Assessment Vital Signs Temp Pulse Pulse Pulse Resp BP BP 06/26/23 08:20 62 18 170/50 H 06/26/23 08:15 66 18 196/42 H 06/26/23 08:10 64 18 190/52 H 06/26/23 08:05 66 18 192/50 H 06/26/23 07:16 36.7 C 65 20 210/56 H 06/26/23 03:52 37.1 C 62 18 124/38 L 06/25/23 23:36 36.8 C 62 18 113/35 L 06/25/23 23:03 64 06/25/23 19:27 36.6 C 67 19 111/45 L 06/25/23 16:30 37.0 C 62 18 106/48 L 06/25/23 16:00 37.1 C 60 20 108/52 L 06/25/23 15:00 37.1 C 74 18 109/38 L 06/25/23 14:15 37.0 C 73 20 108/42 L 06/25/23 13:45 37.1 C 70 20 106/42 L 06/25/23 13:30 37.1 C 75 20 103/41 L 06/25/23 13:09 37.0 C 71 18 102/40 L 06/25/23 11:02 37.2 C 64 17 102/40 L 06/25/23 08:30 37.1 C 66 18 110/41 L Pulse Ox O2 Del Method O2 Flow Rate 06/26/23 08:20 97 Oxymask 4 06/26/23 08:15 97 Oxymask 4 06/26/23 08:10 97 Oxymask 4 06/26/23 08:05 97 Oxymask 4 06/26/23 07:16 93 Room Air 06/26/23 03:52 91 Room Air 06/25/23 23:36 96 Room Air 06/25/23 23:03 06/25/23 19:27 96 Room Air 06/25/23 16:30 96 06/25/23 16:00 95 06/25/23 15:00 93 Room Air 06/25/23 14:15 92 06/25/23 13:45 06/25/23 13:30 95 06/25/23 13:09 91 02/29/24 11:02 95 Room Air 06/25/23 08:30 92 Room Air Cardiovascular RRR, no murmur, no edema Respiratory normal respiratory effort, lungs clear to auscultation Pre-Sedation Airway Assessment Smoking Status: Never smoker Hx Sleep Apnea: No Short, Thick Neck: Yes Thyromental Distance: > or= 3.5 Finger Breadths Oral Cavity: + WNL Mallampati Class: III ASA: ASA3 NPO Status Date of Last Intake of Fluids: 06/26/23 Time of Last Intake of Fluids: 02:00 Date of Last Intake of Solid Food: 06/25/23 Procedure Planning Contraindications for Sedation: none Current Medications Reviewed: Yes Notes The planned sedation has been discussed with the patient. Informed Consent was obtained. I have identified the patient, determined the appropriateness of sedation and have assessed the patient immediately prior to the procedure. All medicine(s) and interventions are by my order.
[2023-06-26] MEDS: LIDOCAINE 1% LOCAL 20 ML VIAL ONE (08:31)
--- NOTE | 2023-06-26 08:50 | Procedure Note ---
Angiogram Post Procedure Fluoroscopy Time (minutes): 0.9 Conscious Sedation Time (minutes): 20 Radiation (mGy): 7 Contrast: 22 Post Operative Report Pre & Post Diagnosis Operation Date: 06/26/23 08:00 Pre-Op Diagnosis: Malfunctioning Fistula Post-Op Diagnosis: Malfunctioning Fistula I identified the patient and participated in the time-out.: Yes Procedure Operation Date: 06/26/23 08:00 Actual Procedures p Right Arm Fistulogram with Intervention, Percutaneous Transluminal Angioplasty, Moderate Sedation 08:25- 08:45(Right) - Anish Subramanian MD s Possible Perm Catheter Placement(Right) - Anish Subramanian MD Surgeon Anish Subramanian MD Lubricator Granulator none Estimated Blood Loss 5 Findings Consistent with Post-Op Diagnosis Specimens none Anesthesia Type RN Sedation Complications none Disposition Accompanied Patient To Recovery: No Disposition: Recovery Room Indications This is a 72-year-old female who has a right upper arm fistula. The fistula is having poor runs with decreased flows. Fistulogram was recommended. I have discussed the risks options and benefits of the procedure with the patient. The patient understands the risks options and benefits and agrees to the procedure. Description of Procedure The patient was taken to the angiogram suite and placed in the supine position. The right right arm was then prepped and draped in a sterile manner. The patient was identified and a timeout performed. Local anesthetic was administered and a percutaneous puncture was then made of the proximal portion of the right arm AV fistula using micropuncture technique. Micropuncture wire and sheath were then inserted. A fistulogram was then performed. The fistulogram showed a widely patent large fistula with no arterial narrowing at the anastomosis. The fistula itself was widely patent. There was a suggestion of a moderate narrowing in the upper arm at the end of the basilic vein. The central veins are also widely patent. We therefore inserted an 035 wire. We exchanged the sheath for 6 Telugu sheath. The area in question was then dilated with a 10 x 4 Hannacroix balloon. Good results were seen no residual narrowing was noted. No further narrowings were noted throughout the fistula. The sheath was then pulled and pressure was applied. Adequate hemostasis was obtained. The patient left the angiogram suite in good condition and tolerated the procedure well. I attest to the content of the Intraoperative Record and any orders documented therein. Any exceptions are noted below.
--- NOTE | 2023-06-26 08:53 | Operative Report ---
Post Operative Report Pre & Post Diagnosis Operation Date: 06/26/23 08:00 Pre-Op Diagnosis: Malfunctioning Fistula Post-Op Diagnosis: Malfunctioning Fistula I identified the patient and participated in the time-out.: Yes Procedure Operation Date: 06/26/23 08:00 Actual Procedures p Right Arm Fistulogram with Intervention, Percutaneous Transluminal Angioplas ty, Moderate Sedation 08:25- 08:45(Right) - Anish Subramanian MD s Possible Perm Catheter Placement(Right) - Anish Subramanian MD Surgeon Anish Subramanian MD Gaming Cage Cashier none Estimated Blood Loss 5 Fluids This is a 72-year-old female Dictate I attest to the content of the Intraoperative Record and any orders documented therein. Any exceptions are noted below.
[2023-06-26] MEDS: SODIUM CHLORIDE 0.9% 500 ML IV SCH (09:31)
--- NOTE | 2023-06-26 10:10 | Nephrology Progress Note ---
Date of Service June 26, 2023 Assessment & Plan (1) ESRD (end stage renal disease): (2) Pulmonary edema: (3) Hypertension: (4) Anemia due to chronic kidney disease: (5) Secondary hyperparathyroidism of renal origin: (6) Metabolic acidosis: Plan ESKD most likely secondary to ? DM nephropathy with h/o HTN, DM with proteinuria. Renal ultrasound with no evidence of post renal obstruction but has bilateral renal cyst serological and paraproteinemia workup unremarkable. Biop sy was not done as it was relatively contraindicated considering bilateral small size kidney and multiple cyst and high likelihood of finding diabetic nephropathy and atherosclerotic disease. Had rt arm basilic vein endovascular AV fistula placement on 03/27/2021, had transposition in May 2021. Presented on 06/19/2023 with overall feeling poorly, noticing some shortness of breath. Kidney function worsened significantly, with volume overload, electrolyte abnormality and started on dialysis on admission however later infiltrated right after started on dialysis and dialysis was stopped and Had first dialysis treatment on 06/20/2023. On 06/22/2023 she was noted to have elevated troponin and acute EKG changes with occasional chest pain and eventually had cardiac cath on 06/23/2023 showing 95% occlusion of LAD and chronic total occlusion of RCA, had LAD stent. Had fistulogram on 06/26/2023 showing some narrowing on the venison and had balloon but otherwise widely patent fistula. Overall feeling well. Hemoglobin improved after blood transfusion yesterday. Received Venofer loading dose. -- Dialysis today for 4 hours and after dialysis if she is clinically stable, okay to be discharged. Advised her to continue on diuretics over the weekend as she will have 3 days without dialysis and next dialysis will be next Thursday at [facility] kidney care at [place] --Epogen with dialysis today --Nephro Daily, Renvela once with dinner. -- Right arm nephrology precaution ( AVF) Admission and Anticipated Discharge Date Admission Date: June 19, 2023 Roman Dyson was seen this morning, overall she is feeling a lot better. Had fistulogram this morning and noted to have moderate stenosis near Venosan and had balloon but otherwise widely patent fistula. Blood pressure fair. Hemoglobin improved to 8.4 after 1 unit of blood yesterday. Review of Systems Review of Systems: Detailed review of system was done and pertinent positives and negatives are mentioned above. Physical Exam Constitutional: WD/WN, vitals as above no acute distress Eyes: + anicteric sclerae Neck: normal visual inspection Respiratory: no respiratory distress Auscultation: lungs clear to auscultation bilaterally, + diminished lung sounds and + crackles Cardiovascular: Rate/Rhythm: regular rate and regular rhythm Heart Sounds: normal S1 and normal S2 Extremities: + edema and + AV fistula (thrill and Bruit) Skin: no rashes, warm and dry Neurologic: no focal motor deficits Psychiatric: Orientation: alert and oriented x 3 Results & Data Vital Signs (Past 12 Hours) Vital Signs Temp Pulse Pulse Resp BP Pulse Ox O2 Del Method 06/26/23 09:05 36.8 C 67 20 152/74 H 95 Room Air 06/26/23 08:45 60 18 154/42 H 97 Room Air 06/26/23 08:40 60 18 144/42 H 97 Oxymask 06/26/23 08:35 60 18 186/42 H 97 Oxymask 06/26/23 08:30 64 18 166/44 H 97 Oxymask 06/26/23 08:25 62 18 192/48 H 97 Oxymask 06/26/23 08:20 62 18 170/50 H 97 Oxymask 06/26/23 08:15 66 18 196/42 H 97 Oxymask 06/26/23 08:10 64 18 190/52 H 97 Oxymask 06/26/23 08:05 66 18 192/50 H 97 Oxymask 06/26/23 07:16 36.7 C 65 20 210/56 H 93 Room Air 06/26/23 03:52 37.1 C 62 18 124/38 L 91 Room Air 06/25/23 23:36 36.8 C 62 18 113/35 L 96 Room Air 06/25/23 23:03 64 O2 Flow Rate 06/26/23 09:05 06/26/23 08:45 06/26/23 08:40 4 06/26/23 08:35 4 06/26/23 08:30 4 06/26/23 08:25 4 06/26/23 08:20 4 06/26/23 08:15 4 06/26/23 08:10 4 06/26/23 08:05 4 06/26/23 07:16 06/26/23 03:52 06/25/23 23:36 06/25/23 23:03 PG Care Time/CCT Total # of Minutes Spent Total Time Spent with Patient: Total time spent is greater than 50% in coordination of care (as documented) at patient's floor/unit and/or counseling patient: Coding Level of Care Code 97678 SUB INP/OBS CARE 3/50MIN Diagnoses ESRD (end stage renal disease) N18.6 Pulmonary edema J81.1 Essential hypertension I10 Hypertension type: essential hypertension Anemia due to chronic kidney disease N18.9; D63.1 Secondary hyperparathyroidism of renal origin N25.81 Metabolic acidosis E87.20 (3) Hypertension Hypertension type: essential hypertension Qualified Code(s): I10 - Essential (primary) hypertension
--- NOTE | 2023-06-26 11:50 | Discharge Summary ---
Date of Service June 26, 2023 Admission HPI Per Admitting Provider This is a pleasant 72-year-old female with stage V kidney disease who has been approaching end-stage renal disease. Over the last 24 hours she has had increasing shortness of breath and edema in her lower extremities. She presented the ER today for further evaluation and treatment. In the ER she found to have a worsening BUN and creat at 62 and 6.85 respectively with a normal potassium of 3.6. EKG was reassuring troponins were negative x 2. Chest x-ray showed worsening pulmonary edema with dependent small bilateral pleural effusions. Course in the ER consultation was obtained with her field human resources manager who evaluated the patient in the ER and plans to initiate hemodialysis later this afternoon via her right AV fistula which has been previously placed. Principal Diagnosis Acute on chronic diastolic CHF causing pulmonary edema secondary to fluid overload, progression of chronic kidney disease stage V to end-stage renal disease, uncontrolled hypertension, non-ST segment elevation VA Discharge Exam General-alert and oriented x3, no fever, no chills HEENT-head atraumatic and normocephalic, pupils equal and reactive to light, extraocular muscles intact Neck-no lymphadenopathy or thyromegaly, trachea midline Chest-diminished breath sounds bilaterally. Faint bibasilar inspiratory rales have now resolved. No wheezing or rhonchi Cardiac-regular rate and rhythm, normal S1 and S2 Abdomen-normal bowel sounds, nontender, no hepatosplenomegaly Extremities-no cyanosis, clubbing, or edema Neuro-cranial nerves II through XII intact, motor and sensory function within normal limits, strength symmetrical, no focal deficits Psych-normal affect, normal mood Discharge Data Allergies Allergy/AdvReac Type Severity Reaction Status Date / Time insect venom Allergy Intermediate Swelling Verified 06/19/23 11:57 adhesive tape Allergy Mild Rash Verified 06/19/23 11:57 dulaglutide [From Trulicity] AdvReac Mild Constipation, Verified 06/19/23 11:57 vomiting Consultations 06/19/23 12:24 Consult Nephrology Stat 06/19/23 12:32 ED Decision to Admit Stat 06/22/23 11:07 Consult Cardiology Routine 06/24/23 10:18 Consult Vascular Surgery Routine Procedures Performed Operation Date: 06/26/23 08:00 Actual Procedures p Right Arm Fistulogram with Intervention, Percutaneous Transluminal Angioplasty, Moderate Sedation 08:25- 08:45(Right) - Anish Subramanian MD s Possible Perm Catheter Placement(Right) - Anish Subramanian MD Ordered Studies 06/23/23 09:12 CL Cath Imgs for PACS use only Routine 06/26/23 07:12 EV angio arteriovenous shunt Routine Hospital Course (1) Diastolic CHF: Acute on chronic HFpEF due to end-stage renal disease. Echocardiogram here with EF 50-55%, no wall motion abnormalities. Resolved with hemodialysis management of fluid overload. She is now on oral Lasix twice daily. Continue blood pressure control with hydralazine, amlodipine, metoprolol (2) Non-ST elevation VA (NSTEMI): Status post left heart catheterization with placement of drug-eluting stent in the LAD. Appreciate cardiology consultation and recommendations. Now stable. Continue current medical management. (3) ESRD (end stage renal disease): Progression from chronic kidney disease stage V to end-stage renal disease and now on hemodialysis. Appreciate nephrology consultation and recommendations. (4) Anemia: Due to end-stage renal disease. She received 1 unit packed red blood cells on May. She also received parenteral iron replacement. (5) Type 2 diabetes mellitus with obesity: ADA diet. Sliding scale coverage as needed. Well-controlled. Hemoglobin A1c 6.1%. Continue current medical management (6) Hypertension: Now stable. Continue hydralazine and amlodipine and metoprolol succinate. (7) Folate deficiency anemia: Continue folic acid supplementation. Anemia is primarily due to end-stage renal disease Plan Home today, June 25, after hemodialysis is completed Total Time Total Time Spent Total Time Spent (In Minutes): 45-minute Discharge Plan Discharge Items Patient Disposition: Home - Self-Care Reason For Visit: PAR[place] W. CKD Discharge Diagnosis: Progression of chronic kidney disease stage V to end-stage renal disease, acute on chronic diastolic CHF causing pulmonary edema, uncontrolled hypertension, non-ST elevation VA, anxiety state Non-emergency contact: Primary Care Provider, Car Designer and Computer Tech Call non-emergency contact if: your symptoms worsen Follow-up/Referrals: Unruly Trujillo, [Primary Care Provider] - Diet: Carb Consistent or DM2, Dialysis Renal and Heart Healthy Addtl Attending Provider Instructions: Continue hemodialysis per nephrology instructions. Follow-up with cardiology and primary care physicians as soon as possible. A atorvastatin replaces simvastatin. Take Lasix 40 mg twice daily as directed Pending Studies at Discharge: No Stand-Alone Forms: My [facility], Smoking Cessation Medications and DC Order Prescriptions: New furosemide 40 mg Tablet 40 mg PO [id number] Qty: 60 0RF atorvastatin 40 mg Tablet 40 mg PO QAM Qty: 30 0RF clopidogrel 75 mg Tablet 75 mg PO QAM Qty: 30 0RF Renal Caps 1 mg Capsule 1 cap PO QAM Qty: 30 0RF Continued (DME) FreeStyle Kvng 2 Lovell Misc See Rx Instructions .ROUTE .MEDSUPPLY Qty: 1 0RF Rx Instructions: Use to monitor blood sugars daily (DME) FreeStyle Kvng 2 Sensor Kit See Rx Instructions miscellaneous .MEDSUPPLY Qty: 2 11RF Rx Instructions: Change every 14 days. sodium bicarbonate 650 mg tablet 650 mg PO BID Qty: 60 3RF hydralazine 25 mg tablet 25 mg PO BID Qty: 180 3RF amlodipine 10 mg tablet 10 mg PO QAM Qty: 90 3RF metoprolol succinate 100 mg tablet extended release 24 hr 100 mg PO QAM Qty: 90 3RF Rx Instructions: in addition to 50mg for a total of 150mg daily insulin aspart U-100 [Novolog FlexPen U-100 Insulin] 100 unit/mL (3 mL) insulin pen 14 unit subcut QAM PRN (Reason: bg LEVELS) metoprolol succinate 50 mg tablet extended release 24 hr 50 mg PO QAM Qty: 90 3RF Rx Instructions: TAKE 1 TABLET BY MOUTH EVERY DAY with 100mg dose for total of 150mg cholecalciferol (vitamin D3) 62.5 mcg (2,500 unit) capsule 62.5 mcg PO HS B12 Active 1,000 mcg tablet,chewable 1,000 mcg PO QAM (DME) pen needle, diabetic [BD Ultra-Fine Nicki Pen Needle] 32 gauge x 5/32" needle See Rx Instructions miscellaneous .MEDSUPPLY Qty: 100 5RF Rx Instructions: Use to inject daily (DME) lancets [Accu-Chek Fastclix Lancet Drum] mis See Dose Instructions .ROUTE .MEDSUPPLY Qty: 50 Rx Instructions: As directed aspirin 81 mg tablet,chewable 81 mg PO QAM (DME) Accu-Chek SmartView Test Strip Strip See Rx Instructions .ROUTE .MEDSUPPLY Dose Instruction: As directed Rx Instructions: USE 1 TEST STRIP DAILY PRN calcitriol 0.5 mcg capsule 0 mcg PO DAILY Rx Instructions: Per patient they are now taking 0.5mcg by mouth once daily, PCP is aware. triamcinolone acetonide 0.1 % ointment 1 applic TOPICAL DAILY sevelamer HCl 800 mg tablet 0 mg PO TID Rx Instructions: must administer with a meal/food. Per patient, she hasn't started this medication yet. Original directions. 800mg by mouth TID w/ meals buspirone 7.5 mg tablet 7.5 mg PO DAILY PRN (Reason: anxiety) ferrous gluconate 324 mg (38 mg iron) tablet 324 mg PO BID insulin degludec [Tresiba FlexTouch U-100] 100 unit/mL (3 mL) insulin pen 8 - 14 unit subcut .BIDAFTERMEALS PRN (Reason: BG levels) Discontinued simvastatin 20 mg tablet 20 mg PO QPM Qty: 90 3RF Discharge Orders: Discharge Order (Routine); Ordered 06/26/23 Ordered By: Jay Crawley/Other Patient Handouts: Managing Type 2 Diabetes Admission Data Admit Date/Time: 06/19/23 12:58 Attending Provider: Jay Rivera Admit Provider: Trent Summers Primary Care Provider: Unruly Trujillo Other Providers: James Bragg; Trent Summers; Ayo Mccarthy; Gentry Gurrola; Junior Martins; Macario Mendoza; Klever Wadsworth; Samy Kumar Jr; Nic Kaplan; Brie Go; Bettina Mayo; Jeyson Lopes; Jeyson Walton; Jay Hernandez; Mohini Bhat; Lee Ann Garcias; Jf Harrington; Grayson Blanc; Helder Reza; Anish Subramanian Coding Level of Care Code 64601 INP/OBS DISCH >30 MIN Diagnoses Diastolic CHF I50.30 Non-ST elevation VA (NSTEMI) I21.4 ESRD (end stage renal disease) N18.6 Anemia D64.9 Type 2 diabetes mellitus with obesity E11.69; E66.9 Essential hypertension I10 Hypertension type: essential hypertension Folate deficiency anemia D52.9
[2023-06-26] MEDS: EPOETIN ALFA 20,000 UNITS/ML VIAL IV STA (14:04)
== END 2023-06-26 17:07 | disposition home or self-care (01) | DRG 321 ==
LOC: ED 08:57 → EDINP 12:58 → SUATTDRO 12:58 → 2S 15:29 → 2E 06-23 21:31

== ENCOUNTER 2024-01-27 04:22 | Inpatient (IN) ==
--- NOTE | 2024-01-27 04:43 | Emergency Department Note ---
Impression & Plan Acute cholecystitis ADMIT ED Provider Note HPI: History obtained from patient. The patient is a 73-year-old female with history of end-stage renal disease, on peritoneal dialysis, history of CAD status post stent placement, presents emergency department with a chief complaint of right-sided abdominal pain as well as nausea and vomiting this been ongoing for about the past day. Patient states she has also had some diarrhea. Patient denies any chest pain or shortness of breath. Patient denies any dysuria or hematuria, she states that she has had some subjective fever at times at home. On arrival here to the ED the patient is hemodynamically stable, she otherwise appears to be in no acute distress on my initial assessment. ROS: - Per HPI Differential Diagnosis: Spontaneous bacterial peritonitis, acute cholecystitis, choledocholithiasis, acute appendicitis, small bowel obstruction, viral gastroenteritis, acute colitis, amongst other potential pathologies. *Outpatient medications and allergy history reviewed. PE: General: Alert HEENT: Normocephalic, trachea midline Eyes: Extraocular eye movement is intact, no scleral erythema Pulmonary: Clear to auscultation bilaterally, no wheezing Cardio: Regular rate and rhythm GI: Abdomen is soft to palpation, there is moderate right-sided abdominal tenderness to palpation without guarding or rigidity, peritoneal catheter is in place in the mid abdomen without surrounding erythema : No suprapubic tenderness MSK: No evidence of trauma or malformation of the extremities, no edema Skin: No evidence of rash Neuro: Alert, no focal deficits Psychiatric: Cooperative INDEPENDENT INTERPRETATIONS: nuclear monitoring technician: (As interpreted by myself): - An order was placed for continuous cardiac monitoring - Patient was noted to be in sinus rhythm with a rate of 85 Interventions provided in ED: -IV morphine, IV Zofran, IV labetalol, IV Zosyn Medical Decision Making: IV was established and lab work obtained, patient was placed on case monitor. Lab work shows a mild leukocytosis at 11.47, hemoglobin is stable at 9.7, platelet count is normal, CMP does not show any evidence of any critical findings, baseline creatinine with history of end-stage renal disease on peritoneal dialysis at 10.17. CT imaging of the abdomen pelvis without contrast was obtained and shows evidence of what appears to be acute cholecystitis per the interpreting radiologist. General surgery was consulted and the patient was evaluated at the bedside by Calvin Sinha PA-C. Request was made for admission to the medicine service with general surgery consultation given her complex medical history. Case was then discussed with the on-call hospitalist, Dr. Rhoades, and the patient was placed for admission in stable condition. Patient was in agreement to this plan, she was given prophylactic antibiotics prior to admission. Consultants/Discussions held with other healthcare providers: -General Surgery, Calvin Sinha PA-C -Hospitalist, Dr. Rhoades Disposition discussion held by myself with: -Patient Diagnosis: 1. Acute cholecystitis 2. Abdominal pain, acute 3. History of end-stage renal disease, on peritoneal dialysis 4. Leukocytosis, acute Disposition: Admission Pratik Palma DO Emergency Medicine Past Med/Surg History Problem List (Updated 01/27/24 @ 06:21 by Pratik Palma DO) Acute cholecystitis (Acute) Cholecystitis Hypercholesterolemia Hypertension CAD (coronary artery disease) Heart failure with preserved ejection fraction Presence of drug-eluting stent in anterior descending branch of left coronary artery Antiplatelet or antithrombotic long-term use ESRD (end stage renal disease) (Acute) Non-proliferative diabetic retinopathy, both eyes Insulin-requiring or dependent type II diabetes mellitus (Chronic) Gout (Acute) Anxiety Associated dyspnea per pulmonology Vitamin D deficiency Obesity (Chronic) Osteopenia Dexa 03/2023 Complex renal cyst Medical History Non-ST elevation ME (NSTEMI) Anemia Pulmonary edema 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 Metabolic acidosis Stage 5 chronic kidney disease not on chronic dialysis AV fistula right arm--per pt not currently using yet Periodontal pocket Carious teeth Anemia due to chronic kidney disease Sleep apnea Per 2009 polysomnography (per 02/2021 pulmonology note)- pt declined treatment or repeat study-NO DEVICE Diastolic CHF Chronic kidney disease, stage 4 (severe) Secondary hyperparathyroidism of renal origin History of DVT (deep vein thrombosis) Multiple "small" DVTs (25+ years ago, 6 years ago) Fibroids History of hypothyroidism HX-NO MEDS Sensorineural hearing loss (SNHL) of both ears Family history of colon cancer in mother Surgical History History of coronary artery stent placement S/P arteriovenous (AV) fistula creation RIGHT arm 03/27/21 @ [facility] Dr. Subramanian History of dental surgery History of surgery on arm Right Arm basilic vein transposition 2nd stage @ [facility] Dr. Subramanian 06/10/21 History of colonoscopy Family History Mother Diabetes Renal cell cancer Heart disease Colorectal cancer Hypertension Brother Diabetes Renal cell cancer Heart disease Lung cancer Hypertension Gallbladder disease Father Prostate cancer Heart disease Hypertension Grandmother (Maternal) Colorectal cancer Aunt Diabetes Other Alzheimer disease No family history of adverse response to anesthesia Denies family history of Ovarian cancer Myocardial infarction Breast cancer Social History Smoking Status: Never smoker Second Hand Exposure: No; Do You Dip or Chew Tobacco: No; Hx Alcohol Use: Yes Alcohol type: wine Alcohol Intake Frequency: Monthly or Less Hx Substance Use: No Preferred Language: Niuean Communication Ability: Effective Visual Impairment: Limited Hearing Ability: Hard of Hearing City Designer Required: No marital status: Single Current Living Situation: Alone current occupational status: retired current occupation: Retired How many Children do You have: 0 Feels Safe at Home: Yes Childhood Exposure to Second-Hand Smoke: No (very little ) Diet: diabetic caffeine: Yes (drinks iced tea every day, sometimes soda ) Dental Care, Regularly: Yes Physical Activity Frequency: 1-2 Times per Week Physical Activity Frequency Comment: weight training, walking Seatbelt Use: always Sunscreen Use: Yes (most times ) Assistive Devices: None Allergies Allergies Allergy/AdvReac Type Severity Reaction Status Date / Time insect venom Allergy Intermediate Swelling Verified 12/23/23 13:58 adhesive tape Allergy Mild Rash Verified 12/23/23 13:58 dulaglutide [From [facility]] AdvReac Mild Constipation, Verified 12/23/23 13:58 vomiting Home Meds Home Medications Medication Instructions Recorded Confirmed lancets (Accu-Chek Fastclix Lancet #50 ea 12/16/18 12/23/23 Drdes) aspirin 81 mg chewable tablet 81 mg PO QAM 11/07/19 12/23/23 mecobalamin (vitamin B12) 1,000 1,000 mcg PO QAM 09/13/20 12/23/23 mcg chewable tablet (B12 Active) blood sugar diagnostic (Accu-Chek 10/15/21 12/23/23 SmartView Test Strips) cholecalciferol (vitamin D3) 62.5 62.5 mcg PO HS 06/06/22 12/23/23 mcg (2,500 unit) capsule insulin aspart U-100 100 unit/mL 14 unit subcut QAM PRN bg LEVELS 03/10/23 12/23/23 (3 mL) subcutaneous pen (Novolog FlexPen U-100 Insulin aspart) sevelamer HCl 800 mg tablet 0 mg PO TID 06/19/23 12/23/23 triamcinolone acetonide 0.1 % 1 applic topical BID PRN 07/28/23 12/23/23 topical ointment furosemide 40 mg tablet 80 mg PO BID17 09/08/23 12/23/23 potassium chloride 20 mEq 20 meq PO DAILY 11/19/23 12/23/23 tablet,extended release Previous Rx's Medication Instructions Recorded Walking Cane #1 ea 06/30/23 clopidogrel 75 mg tablet 75 mg PO QAM #90 tabs 08/18/23 pen needle, diabetic 32 gauge x #100 ea 08/24/2332" (BD Nicki 2nd Gen Pen Needle) buspirone 7.5 mg tablet 7.5 mg PO DAILY PRN anxiety #90 09/04/23 tabs sucroferric oxyhydroxide 500 mg 500 mg PO TID #90 tabs 11/19/23 chewable tablet (Velphoro) insulin degludec 100 unit/mL (3 18 unit (0.18 mL) subcut DAILY BG 12/14/23 mL) subcutaneous pen (Tresiba levels 90 days #16.2 mL FlexTouch U-100 insulin) blood-glucose sensor (FreeStyle #2 ea 12/15/23 Kvng 3 Sensor device) vitamin B complex and vitamin C 1 cap PO QAM #90 caps 12/15/23 no.20-folic acid 1 mg capsule (Renal Caps) metoprolol succinate 50 mg 50 mg PO QAM #90 tabs 12/23/23 tablet,extended release 24 hr rosuvastatin 40 mg tablet 40 mg PO DAILY #90 tabs 12/23/23 potassium chloride 10 mEq 20 meq (2 x 10 mEq) PO BID #120 12/31/23 tablet,extended release tabs Results & Data (ED) Vital Signs Vital Signs - 24 hr 01/27/24 04:30 01/27/24 04:48 01/27/24 04:48 Temperature 36.6 C Temperature Source Oral Pulse Rate 81 80 75 Pulse Rate from SpO2 Sensor 75 Respiratory Rate 22 20 Blood Pressure 172/92 H 205/96 H Blood Pressure Mean 118 132 Pulse Oximetry 100 100 Oxygen Delivery Method Room Air Sepsis Recent Fever Within 48 Hours Yes Sepsis New/Unexplained Change in Mental Status No Sepsis Action Taken by Nursing No Action Required 01/27/24 05:06 01/27/24 05:16 01/27/24 05:33 Temperature Temperature Source Pulse Rate 75 76 Pulse Rate from SpO2 Sensor 78 71 Respiratory Rate 13 14 Blood Pressure 217/89 H 180/88 H Blood Pressure Mean 131 118 Pulse Oximetry 100 100 100 Oxygen Delivery Method Room Air Sepsis Recent Fever Within 48 Hours Sepsis New/Unexplained Change in Mental Status Sepsis Action Taken by Nursing 01/27/24 06:00 Temperature Temperature Source Pulse Rate 82 Pulse Rate from SpO2 Sensor 76 Respiratory Rate 19 Blood Pressure 189/71 H Blood Pressure Mean 110 Pulse Oximetry 100 Oxygen Delivery Method Sepsis Recent Fever Within 48 Hours Sepsis New/Unexplained Change in Mental Status Sepsis Action Taken by Nursing Laboratory Data 01/27/24 04:40 01/27/24 04:40 Lab Results 01/27/24 Range/Units 04:40 WBC 11.47 H (4.8-10.8) K/ul RBC 2.84 L (4.20-5.40) M/uL Hgb 9.7 L (12.0-16.0) g/dl Hct 28.6 L (37.0-47.0) % MCV 100.7 H (80.0-100.0) fL MCH 34.2 H (25.0-34.0) pg MCHC 33.9 (32.0-36.0) g/dL RDW Std Deviation 46.0 (36.4-46.3) fL RDW Coeff of Poornima 12.6 (11.5-14.5) % Plt Count 302 (130-400) K/uL MPV 10.7 (9.4-12.4) fL Immature Gran % (Auto) 0.4 % Neut % (Auto) 83.1 % Lymph % (Auto) 10.1 % [place] % (Auto) 6.0 % Eos % (Auto) 0.0 % Baso % (Auto) 0.4 % Neut # (Auto) 9.52 H (1.40-6.50) K/uL Lymph # (Auto) 1.16 L (1.20-3.40) K/uL [place] # (Auto) 0.69 H (0.11-0.59) K/uL Eos # (Auto) 0.00 (0.00-0.50) K/uL Baso # (Auto) 0.05 (0.00-0.20) K/uL Immature Gran # (Auto) 0.05 (0.01-0.20) K/uL Sodium 139 (136-145) mmol/L Potassium 3.5 (3.5-5.1) mmol/L Chloride 95 L (98-107) mmol/L Carbon Dioxide 23 (21-32) mmol/L Anion Gap 21 H (3-11) BUN 48 H (6-23) mg/dl Creatinine 10.17 H* (0.6-1.2) mg/dl Est Cr Clr Drug Dosing 4.7 ml/min Est GFR ( Amer) 3.9 ml/min Est GFR (Non-Af Amer) 3.3 ml/min BUN/Creatinine Ratio 4.7 L (10-20) Glucose 194 H (70-99(Fasting)) mg/dl Calcium 9.2 (8.6-10.3) mg/dl Total Bilirubin 0.4 (0.2-1.0) mg/dl AST 31 (13-39) U/L ALT 29 (7-52) U/L Alkaline Phosphatase 81 (34-104) U/L Total Protein 6.0 (6.0-8.3) gm/dl Albumin 3.0 L (3.4-5.0) gm/dl Globulin 3.0 (2.5-4.0) gm/dl Albumin/Globulin Ratio 1.0 (0.9-2) Lipase 13 (11-82) U/L Administered Medications Discontinued Medications Sodium Chloride (Nss) 500 mls @ 999 mls/hr IV .Q31M STA Stop: 01/27/24 05:10 Last Infusion: 01/27/24 05:58 Dose: Infused Documented By: Admin: 01/27/24 04:50 Dose: 999 mls/hr Documented By: KRISSY Labetalol HCl (Labetalol Hcl Iv 5 Mg/Ml 20ml) 10 mg IV NOW STA Stop: 01/27/24 05:37 Last Admin: 01/27/24 05:48 Dose: 10 mg Documented By: EMB Morphine Sulfate (Morphine Sulfate 4 Mg/Ml 1 Ml Carp\\Vial) 4 mg IV NOW STA Stop: 01/27/24 04:41 Last Admin: 01/27/24 04:49 Dose: 4 mg Documented By: EMB Ondansetron HCl (Ondansetron Inj 2 Mg/Ml 2 Ml Vial) 4 mg IV NOW STA Stop: 01/27/24 04:41 Last Admin: 01/27/24 04:49 Dose: 4 mg Documented By: EMB Imaging Data Radiologist's Impression: Abdomen/Pelvis CT 01/27/24 04:40 Exam(s): CT ABDOMEN + PELVIS Without Contrast EXAM: CT Abdomen and Pelvis Without Intravenous Contrast CLINICAL HISTORY: Abdominal Pain TECHNIQUE: Axial computed tomography images of the abdomen and pelvis without intravenous contrast. CTDI is 20.78 mGy and DLP is 1065.95 mGy-cm. Automated exposure control was utilized for the study. A dose lowering technique was utilized adhering to the principles of ALARA. COMPARISON: Renal ultrasound 01/07/[address] abdomen and pelvis 03/16/2019 FINDINGS: Lung bases: Unremarkable. No mass. No consolidation. ABDOMEN: Liver: Unremarkable. Gallbladder and bile ducts: Marked cholelithiasis with distention of the gallbladder and thickening of the wall. No ductal dilation. Pancreas: Unremarkable. No ductal dilation. Spleen: Unremarkable. No splenomegaly. Adrenals: Unremarkable. No mass. Kidneys and ureters: Simple appearing bilateral renal cysts are present, no follow up is needed. The kidneys are otherwise unremarkable. No hydronephrosis. Stomach and bowel: Diverticulosis. No obstruction. No mucosal thickening. PELVIS: Appendix: No findings to suggest acute appendicitis. Bladder: Unremarkable. No stones. Reproductive: Multiple calcified masses in the uterus likely represent fibroids. ABDOMEN and PELVIS: Intraperitoneal space: Unremarkable. No free air. No significant fluid collection. Bones/joints: There are degenerative changes of the spine. No acute fracture. No dislocation. Soft tissues: Unremarkable. Vasculature: Moderate atherosclerosis. No abdominal aortic aneurysm. Lymph nodes: Unremarkable. No enlarged lymph nodes. Tubes, lines and devices: The peritoneal dialysis catheter is noted. IMPRESSION: 1. Marked cholelithiasis with distention of the gallbladder and thickening of the wall. This most consistent with acute cholecystitis. 2. Diverticulosis. Electronically signed by: Kena Henson MD 01/27/24 05:57 AM Discharge Plan Visit Data Chief Complaint: Abdominal Pain Stated Complaint: ABDOMINAL PAIN, DIARRHEA ED Provider: Pratik Palma Discharge Problem: Acute cholecystitis Forms Stand Alone Forms: My [facility] Prescriptions Prescriptions: No Action clopidogrel 75 mg tablet 75 mg PO QAM Qty: 90 3RF (DME) pen needle, diabetic [BD Nicki 2nd Gen Pen Needle] 32 gauge x 5/32" needle See Rx Instructions .Route Qty: 100 11RF Rx Instructions: use to inject 3 times daily buspirone 7.5 mg tablet 7.5 mg PO DAILY PRN (Reason: anxiety) Qty: 90 3RF insulin degludec [Tresiba FlexTouch U-100] 100 unit/mL (3 mL) insulin pen 18 unit subcut DAILY 90 Days Qty: 16.2 3RF (DME) FreeStyle Kvng 3 Sensor Device See Rx Instructions .Route Qty: 2 0RF Rx Instructions: Change every 14 days. E11.9 Renal Caps 1 mg capsule 1 cap PO QAM Qty: 90 3RF potassium chloride 10 mEq tablet extended release 20 meq PO BID Qty: 120 6RF insulin aspart U-100 [Novolog FlexPen U-100 Insulin] 100 unit/mL (3 mL) insulin pen 14 unit subcut QAM PRN (Reason: bg LEVELS) furosemide 40 mg tablet 80 mg PO BID17 cholecalciferol (vitamin D3) 62.5 mcg (2,500 unit) capsule 62.5 mcg PO HS B12 Active 1,000 mcg tablet,chewable 1,000 mcg PO QAM (DME) lancets [Accu-Chek Fastclix Lancet Drum] misc See Dose Instructions .ROUTE .MEDSUPPLY Qty: 50 Rx Instructions: As directed aspirin 81 mg tablet,chewable 81 mg PO QAM (DME) Accu-Chek SmartView Test Strip Strip See Rx Instructions .ROUTE .MEDSUPPLY Dose Instruction: As directed Rx Instructions: USE 1 TEST STRIP DAILY PRN (DME) Walking Cane Misc See Rx Instructions .Route Qty: 1 0RF Rx Instructions: As directed potassium chloride 20 mEq tablet extended release 20 meq PO DAILY Velphoro 500 mg tablet,chewable 500 mg PO TID Qty: 90 2RF metoprolol succinate 50 mg tablet extended release 24 hr 50 mg PO QAM Qty: 90 3RF rosuvastatin 40 mg tablet 40 mg PO DAILY Qty: 90 3RF sevelamer HCl 800 mg tablet 0 mg PO TID Rx Instructions: must administer with a meal/food. Per patient, she hasn't started this medication yet. Original directions. 800mg by mouth TID w/ meals triamcinolone acetonide 0.1 % ointment 1 applic TOPICAL BID PRN Referrals Referrals: Unruly Trujillo DO [Primary Care Provider] -
[2024-01-27] MEDS: MoRPHine SULFATE 4 MG/ML 1 ML CARP\\VIAL IV STA ×2 (04:49→06:28)
[2024-01-27] MEDS: ONDANSETRON INJ 2 MG/ML 2 ML VIAL IV STA (04:49)
[2024-01-27] MEDS: SODIUM CHLORIDE 0.9% 500 ML IV STA (04:50)
[2024-01-27 05:03] LABS: Basophils # (auto) 0.05 K/uL (0.00-0.20); Basophils % (auto) 0.4 %; Hematocrit (blood only) 28.6 % (37.0-47.0); Hemoglobin 9.7 g/dl (12.0-16.0); Immature Granulocytes # (auto) 0.05 K/uL (0.01-0.20); Immature Granulocytes % (auto) 0.4 %; Lymphocytes # (auto) 1.16 K/uL (1.20-3.40); Lymphocytes % (auto) 10.1 %; Mean Corpuscular Hemoglobin 34.2 pg (25.0-34.0); Mean Corpuscular Hgb Conc 33.9 g/dL (32.0-36.0); Mean Corpuscular Volume 100.7 fL (80.0-100.0); Mean Platelet Volume 10.7 fL (9.4-12.4); Monocytes # (auto) 0.69 K/uL (0.11-0.59); Neutrophils # (auto) 9.52 K/uL (1.40-6.50); Neutrophils % (auto) 83.1 %; Platelet Count 302 K/uL (130-400); RDW Coefficient of Variation 12.6 % (11.5-14.5); Red Blood Count 2.84 M/uL (4.20-5.40); White Blood Count 11.47 K/ul (4.8-10.8)
[2024-01-27 05:36] LABS: BUN Creatinine Ratio 4.7 (10-20); Bilirubin,Total 0.4 mg/dl (0.2-1.0); Calcium 9.2 mg/dl (8.6-10.3); Creatinine Clr Calc Pharmacy 4.7 ml/min; Est GFR (African American) 3.9 ml/min; Est GFR (Non-African American) 3.3 ml/min; Potassium 3.5 mmol/L (3.5-5.1)
[2024-01-27] MEDS: LABETALOL HCL IV 5 MG/ML 20ML IV STA (05:48)
--- NOTE | 2024-01-27 05:59 | CT Scan Report ---
Exam(s): CT ABDOMEN + PELVIS Without Contrast EXAM: CT Abdomen and Pelvis Without Intravenous Contrast CLINICAL HISTORY: Abdominal Pain TECHNIQUE: Axial computed tomography images of the abdomen and pelvis without intravenous contrast. CTDI is 20.78 mGy and DLP is 1065.95 mGy-cm. Automated exposure control was utilized for the study. A dose lowering technique was utilized adhering to the principles of ALARA. COMPARISON: Renal ultrasound 01/07/[address] abdomen and pelvis 03/16/2019 FINDINGS: Lung bases: Unremarkable. No mass. No consolidation. ABDOMEN: Liver: Unremarkable. Gallbladder and bile ducts: Marked cholelithiasis with distention of the gallbladder and thickening of the wall. No ductal dilation. Pancreas: Unremarkable. No ductal dilation. Spleen: Unremarkable. No splenomegaly. Adrenals: Unremarkable. No mass. Kidneys and ureters: Simple appearing bilateral renal cysts are present, no follow up is needed. The kidneys are otherwise unremarkable. No hydronephrosis. Stomach and bowel: Diverticulosis. No obstruction. No mucosal thickening. PELVIS: Appendix: No findings to suggest acute appendicitis. Bladder: Unremarkable. No stones. Reproductive: Multiple calcified masses in the uterus likely represent fibroids. ABDOMEN and PELVIS: Intraperitoneal space: Unremarkable. No free air. No significant fluid collection. Bones/joints: There are degenerative changes of the spine. No acute fracture. No dislocation. Soft tissues: Unremarkable. Vasculature: Moderate atherosclerosis. No abdominal aortic aneurysm. Lymph nodes: Unremarkable. No enlarged lymph nodes. Tubes, lines and devices: The peritoneal dialysis catheter is noted. IMPRESSION: 1. Marked cholelithiasis with distention of the gallbladder and thickening of the wall. This most consistent with acute cholecystitis. 2. Diverticulosis. Electronically signed by: Kena Henson MD 01/27/24 05:57 AM
--- NOTE | 2024-01-27 06:14 | Surgery Consultation ---
Date of Consultation January 27, 2024 Assessment & Plan (1) Cholecystitis: I discussed with the treating emergency room physician and the patient is being admitted on the hospital service. From a surgical perspective we recommend the following: Provide analgesics provide antiemetics Patient should be hydrated with IV fluids while she is kept n.p.o. but this will need to be closely coordinated with her volume status due to the fact that she is a dialysis patient Would recommend involving the services of nephrology to assist with dialysis Antibiotic should be administeredhave to treat emergency room physician has initiated Zosyn that should continue We will check a gallbladder ultrasound for further delineation of the hepatobiliary system Would recommend following serial labs Coagulation studies have not been checked at this point so I have ordered these as well It is likely patient will require some intervention on her gallbladder. Will be preferable to hold on any potential surgery until patient has been off her Plavix for several days to decrease the risk of perioperative bleeding. With that being said Plavix should be held if clinically able Any procedural intervention such as cholecystectomy will also need to be coordinated around patient's dialysis session Additional recommendations with forthcoming based on her clinical course as it unfolds Supervising Physician Co-Signing Physician Notes Patient seen and examined, labs and imaging reviewed, agree with above. 73-year-old female with end-stage renal disease on peritoneal dialysis and history of coronary artery stent placed in May presented with abdominal pain. Workup revealed cholelithiasis with cholecystitis. She last took Plavix yesterday. On exam she is afebrile with stable vitals. Her abdomen is soft, tender palpation in the right upper quadrant with no guarding, negative Ledbetter's. Peritoneal dialysis catheter inserts in right lower quadrant. WBC 11.8, CT personally viewed and interpreted agree with the assessment of cholelithiasis with distended gallbladder and thickened gallbladder wall consistent with cholecystitis. Ultrasound showed cholelithiasis with distended gallbladder, equivocal for cholecystitis. She is going to undergo hemodialysis today through AV fistula. Hold Plavix. Will plan for laparoscopic cholecystectomy during this hospital stay once cleared by cardiology and nephrology. Would ideally wait a few days for the Plavix to clear her system. History of Present Illness Reason for Consultation: Abdominal pain History of Present Illness This is a 73-year-old female who presented the emergency department secondary abdominal pain. Patient says that she ate an evening meal last night sometime thereafter she developed right upper quadrant pain. She has had nausea, vomiting, and diarrhea. She does that she has never had this problem before and specifically denies any postprandial pain over the past several weeks to months. Patient denies any fevers, shakes, or chills. She denies any radiation of the pain and denies any palliative or provocative factors to the pain. She does note that she has had prior abdominal surgery in the form of a peritoneal dialysis catheter. She notes that she does dialysis every evening and is followed locally with Dr. Walton of [facility]. She does admit that because of her abdominal symptomatology she did miss her dialysis session on 01/26/2024. She also notes that she has a history of carotid stent she believes was placed in May of this year and she takes Plavix. She does note that she took her most recent dose of Plavix on 01/26/2024. Since arrival to the hospital the patient has had labs and imaging which I independently reviewed. CBC revealed white blood cell count was slightly elevated 11.4. Hemoglobin and hematocrit are 9.7 and 28.6. Platelet count was normal. Chemistry profile showed sodium and potassium were normal her BUN and creatinine were 40 and 10.1. There is no elevation of patient's LFTs or lipase. Patient had a CT scan of the abdomen pelvis. This showed the patient had marked cholelithiasis with distention of the gallbladder and gallbladder wall thickening felt to be consistent with cholecystitis. At the time my interview she was resting comfortably bed she was in no distress. Allergies Allergy/AdvReac Type Severity Reaction Status Date / Time insect venom Allergy Intermediate Swelling Verified 12/23/23 13:58 adhesive tape Allergy Mild Rash Verified 12/23/23 13:58 dulaglutide [From [facility]] AdvReac Mild Constipation, Verified 12/23/23 13:58 vomiting Home Medications Medication Instructions Recorded Confirmed Type lancets (Accu-Chek Fastclix Lancet #50 ea 12/16/18 12/23/23 History Drum) aspirin 81 mg chewable tablet 81 mg PO QAM 11/07/19 01/27/24 History mecobalamin (vitamin B12) 1,000 1,000 mcg PO QAM 09/13/20 01/27/24 History mcg chewable tablet (B12 Active) blood sugar diagnostic (Accu-Chek 10/15/21 12/23/23 History SmartView Test Strips) cholecalciferol (vitamin D3) 62.5 62.5 mcg PO HS 06/06/22 12/23/23 History mcg (2,500 unit) capsule insulin aspart U-100 100 unit/mL 14 unit subcut TIDWMEAL PRN bg 03/10/23 01/27/24 History (3 mL) subcutaneous pen (Novolog LEVELS FlexPen U-100 Insulin aspart) Walking Cane #1 ea 06/30/23 12/23/23 Rx triamcinolone acetonide 0.1 % 1 applic topical BID PRN Anxiety 07/28/23 01/27/24 History topical ointment clopidogrel 75 mg tablet 75 mg PO QAM #90 tabs 08/18/23 01/27/24 Rx pen needle, diabetic 32 gauge x #100 ea 08/24/23 12/23/23 Rx 5/32" (BD Nicki 2nd Gen Pen Needle) buspirone 7.5 mg tablet 7.5 mg PO DAILY PRN anxiety #90 09/04/23 01/27/24 Rx tabs furosemide 40 mg tablet 80 mg PO BID17 09/08/23 01/27/24 History sucroferric oxyhydroxide 500 mg 500 mg PO TID #90 tabs 11/19/23 01/27/24 Rx chewable tablet (Velphoro) insulin degludec 100 unit/mL (3 18 unit (0.18 mL) subcut DAILY BG 12/14/23 01/27/24 Rx mL) subcutaneous pen (Tresiba levels 90 days #16.2 mL FlexTouch U-100 insulin) vitamin B complex and vitamin C 1 cap PO QAM #90 caps 12/15/23 01/27/24 Rx no.20-folic acid 1 mg capsule (Renal Caps) metoprolol succinate 50 mg 50 mg PO QAM #90 tabs 12/23/23 01/27/24 Rx tablet,extended release 24 hr potassium chloride 10 mEq 20 meq (2 x 10 mEq) PO BID #120 12/31/23 01/27/24 Rx tablet,extended release tabs blood-glucose sensor (FreeStyle #2 ea 01/27/24 Rx Kvng 3 Sensor device) rosuvastatin 40 mg tablet 40 mg PO PM 01/27/24 01/27/24 History Patient History Medical History Non-ST elevation AR (NSTEMI) Anemia Pulmonary edema 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 Metabolic acidosis Stage 5 chronic kidney disease not on chronic dialysis AV fistula right arm--per pt not currently using yet Periodontal pocket Carious teeth Anemia due to chronic kidney disease Sleep apnea Per 2009 polysomnography (per 02/2021 pulmonology note)- pt declined treatment or repeat study-NO DEVICE Diastolic CHF Chronic kidney disease, stage 4 (severe) Secondary hyperparathyroidism of renal origin History of DVT (deep vein thrombosis) Multiple "small" DVTs (25+ years ago, 6 years ago) Fibroids History of hypothyroidism HX-NO MEDS Sensorineural hearing loss (SNHL) of both ears Family history of colon cancer in mother Surgical History History of coronary artery stent placement S/P arteriovenous (AV) fistula creation RIGHT arm 03/27/21 @ [facility] Dr. Subramanian History of dental surgery History of surgery on arm Right Arm basilic vein transposition 2nd stage @ [facility] Dr. Subramanian 06/10/21 History of colonoscopy Family History Mother Diabetes Renal cell cancer Heart disease Colorectal cancer Hypertension Brother Diabetes Renal cell cancer Heart disease Lung cancer Hypertension Gallbladder disease Father Prostate cancer Heart disease Hypertension Grandmother (Maternal) Colorectal cancer Aunt Diabetes Other Alzheimer disease No family history of adverse response to anesthesia Denies family history of Ovarian cancer Myocardial infarction Breast cancer Social History Smoking Status: Never smoker Second Hand Exposure: No; Do You Dip or Chew Tobacco: No; Hx Alcohol Use: Yes Alcohol type: wine Alcohol Intake Frequency: Monthly or Less Hx Substance Use: No Preferred Language: Latvian Communication Ability: Effective Visual Impairment: Limited Hearing Ability: Hard of Hearing [employer] Required: No marital status: Single Current Living Situation: Alone current occupational status: retired current occupation: Retired How many Children do You have: 0 Feels Safe at Home: Yes Childhood Exposure to Second-Hand Smoke: No (very little ) Diet: diabetic caffeine: Yes (drinks iced tea every day, sometimes soda ) Dental Care, Regularly: Yes Physical Activity Frequency: 1-2 Times per Week Physical Activity Frequency Comment: weight training, walking Seatbelt Use: always Sunscreen Use: Yes (most times ) Assistive Devices: None Review of Systems Review of Systems: All systems reviewed & are unremarkable except as noted in HPI & below Physical Exam Constitutional: WD/WN, vitals as above Eyes: + anicteric sclerae ENMT: Ears: no hearing impairment and no external ear abnormality Mouth: no oropharynx abnormality Neck: trachea midline Respiratory: normal respiratory effort; no respiratory distress and no labored breathing Cardiovascular: Rate/Rhythm: regular rate and regular rhythm Gastrointestinal (Abdomen): Abdomen is soft and nondistended. Patient had a pre-existing peritoneal dialysis catheter in place. Patient had pain with palpation in the right upper quadrant. Musculoskeletal: No calf tenderness Skin: no rashes Neurologic: moves all extremities Psychiatric: A+Ox3, euthymic affect Results & Data Vital Signs (Past 12 Hours) Vital Signs Temp Pulse Resp BP Pulse Ox O2 Del Method 01/27/24 06:00 82 19 189/71 H 100 01/27/24 05:33 76 14 180/88 H 100 01/27/24 05:16 100 Room Air 01/27/24 05:06 75 13 217/89 H 100 01/27/24 04:48 75 20 205/96 H 100 01/27/24 04:48 80 01/27/24 04:30 36.6 C 81 22 172/92 H 100 Room Air PG Care Time/CCT Total # of Minutes Spent Total Time Spent with Patient: Total time spent is greater than 50% in coordination of care (as documented) at patient's floor/unit and/or counseling patient: Coding Level of Care Code 44584 INT INP/OBS CARE 3/75MIN Diagnoses Cholecystitis K81.9
[2024-01-27 06:16] LABS: Adenovirus PCR Not Detected (NotDetected); Bordetella parapertussis PCR Not Detected (NotDetected); Bordetella pertussis PCR Not Detected (NotDetected); Chlamydia pneumoniae PCR Not Detected (NotDetected); Coronavirus 229E PCR Not Detected (NotDetected); Coronavirus CoV-2 (COVID19)PCR Not Detected (NotDetected); Coronavirus HKU1 PCR Not Detected (NotDetected); Coronavirus NL63 PCR Not Detected (NotDetected); Coronavirus OC43PCR Not Detected (NotDetected); Human Metapneumovirus PCR Not Detected (NotDetected); Influenza A PCR Not Detected (NotDetected); Influenza B PCR Not Detected (NotDetected); Mycoplasma pneumoniae PCR Not Detected (NotDetected); Parainfluenza Virus 1 PCR Not Detected (NotDetected); Parainfluenza Virus 2 PCR Not Detected (NotDetected); Parainfluenza Virus 3 PCR Not Detected (NotDetected); Parainfluenza Virus 4 PCR Not Detected (NotDetected); Respiratory Syncytial VirusPCR Not Detected (NotDetected); Rhinovirus/Enterovirus PCR DETECTED (NotDetected)
[2024-01-27] MEDS: PIPERACILLIN/TAZOBACTAM 4.5 GM/100 ML BAG IV ONE (06:20)
--- NOTE | 2024-01-27 06:40 | History & Physical Report ---
Date of Service January 27, 2024 Assessment & Plan (1) Acute cholecystitis: Plan: 73yo female with history of CAD with recent LIBRA stent placement to mid-LAD in May 2023, ESRD on PD and DM presenting with RUQ abdominal pain, subjective fever/chills and nausea/vomiting. Patient found to have acute cholecystitis. Labs are significant for leukocytosis with WBC=11.47 with neutrophil predominance. LFTs and Lipase are WNL. CT as above with marked cholelithiasis with gallbladder distention and wall thickening. No ductal dilatation -Admit to medical -Keep patient NPO -Zosyn 4.5gm IV BID dosed for renal function -Morphine PRN pain -Zofran PRN nausea -Tylenol as needed for pain or fever -Gallbladder ultrasound ordered -Appreciate General Surgery assistance -Will hold Plavix. Continue ASA 81mg po daily - patient with LIBRA placed to mid- LAD on 06/23/23 (2) CAD (coronary artery disease): Plan: Patient denies chest pain. She has CAD with stent placement. Follows with Dr. Kumar -Continue ASA 81mg daily -Continue Metoprolol 50mg po qAM -Continue Crestor 40mg po qPM -Hold Plavix (3) ESRD (end stage renal disease): Plan: Patient with ESRD on PD. She follows with Dr. Wing -Nephrology consultation appreciated -Avoid nephrotoxic agents -Renal dosing where needed Plan Chronic Medical Conditions: Anxiety - -Continue Buspirone PRN CHF - patient appears euvolemic -Continue Lasix 80mg po BID17 -Continue Metoprolol Diabetes -Lantus 7u BID with ISS -Goal blood sugar 110 - 140 F/E/N - Saline lock. Electrolytes WNL. NPO for now Ppx - SCDs to bilateral LE Code - Full per discussion with patient Dispo - Admit to medical History of Present Illness Chief Complaint: RUQ abdominal pain Primary Care Provider: DO José Miguel Cliffordjoan Guthrie is a pleasant 73yo female with history of CAD s/p NSTEMI with LIBRA placed to the mid-LAD on 06/23/23, ESRD on Peritoneal Dialysis amd known gallstones presenting with RUQ abdominal pain as well as some subjective fevers and chills. Patient reports that over the last month she has been having fairly frequent episodes of vomiting. Yesterday she had a protein bowl to eat then developed vomiting, diarrhea and RUQ abdominal pain. No chest pain, palpitations, cough, SOB. Patient still makes a small amount of urine - no complaints. In the ER she is afebrile, hypertensive otherwise HD stable Still with RUQ abdominal pain, nausea has resolved ER Course: Zosyn 4.5gm Morphine NSS x 500mL Zofran 4mg IV Morphine 4mg IV x 2 Labetalol 10mg IV Allergies Allergy/AdvReac Type Severity Reaction Status Date / Time insect venom Allergy Intermediate Swelling Verified 12/23/23 13:58 adhesive tape Allergy Mild Rash Verified 12/23/23 13:58 dulaglutide [From [facility]] AdvReac Mild Constipation, Verified 12/23/23 13:58 vomiting Home Medications Medication Instructions Recorded Confirmed Type lancets (Accu-Chek Fastclix Lancet #50 ea 12/16/18 12/23/23 History Drum) aspirin 81 mg chewable tablet 81 mg PO QAM 11/07/19 01/27/24 History mecobalamin (vitamin B12) 1,000 1,000 mcg PO QAM 09/13/20 01/27/24 History mcg chewable tablet (B12 Active) blood sugar diagnostic (Accu-Chek 10/15/21 12/23/23 History SmartView Test Strips) cholecalciferol (vitamin D3) 62.5 62.5 mcg PO HS 06/06/22 12/23/23 History mcg (2,500 unit) capsule insulin aspart U-100 100 unit/mL 14 unit subcut TIDWMEAL PRN bg 03/10/23 01/27/24 History (3 mL) subcutaneous pen (Novolog LEVELS FlexPen U-100 Insulin aspart) Walking Cane #1 ea 06/30/23 12/23/23 Rx triamcinolone acetonide 0.1 % 1 applic topical BID PRN Anxiety 07/28/23 01/27/24 History topical ointment clopidogrel 75 mg tablet 75 mg PO QAM #90 tabs 08/18/23 01/27/24 Rx pen needle, diabetic 32 gauge x #100 ea 08/24/23 12/23/23 Rx 5/32" (BD Nicki 2nd Gen Pen Needle) buspirone 7.5 mg tablet 7.5 mg PO DAILY PRN anxiety #90 09/04/23 01/27/24 Rx tabs furosemide 40 mg tablet 80 mg PO BID17 09/08/23 01/27/24 History sucroferric oxyhydroxide 500 mg 500 mg PO TID #90 tabs 11/19/23 01/27/24 Rx chewable tablet (Velphoro) insulin degludec 100 unit/mL (3 18 unit (0.18 mL) subcut DAILY BG 12/14/23 01/27/24 Rx mL) subcutaneous pen (Tresiba levels 90 days #16.2 mL FlexTouch U-100 insulin) blood-glucose sensor (FreeStyle #2 ea 12/15/23 12/23/23 Rx Kvng 3 Sensor device) vitamin B complex and vitamin C 1 cap PO QAM #90 caps 12/15/23 01/27/24 Rx no.20-folic acid 1 mg capsule (Renal Caps) metoprolol succinate 50 mg 50 mg PO QAM #90 tabs 12/23/23 01/27/24 Rx tablet,extended release 24 hr potassium chloride 10 mEq 20 meq (2 x 10 mEq) PO BID #120 12/31/23 01/27/24 Rx tablet,extended release tabs rosuvastatin 40 mg tablet 40 mg PO PM 01/27/24 01/27/24 History Past Med/Surg History Problem List Acute cholecystitis (Acute) Cholecystitis Hypercholesterolemia Hypertension CAD (coronary artery disease) Heart failure with preserved ejection fraction Presence of drug-eluting stent in anterior descending branch of left coronary artery Antiplatelet or antithrombotic long-term use ESRD (end stage renal disease) (Acute) Non-proliferative diabetic retinopathy, both eyes Insulin-requiring or dependent type II diabetes mellitus (Chronic) Gout (Acute) Anxiety Associated dyspnea per pulmonology Vitamin D deficiency Obesity (Chronic) Osteopenia Dexa 03/2023 Complex renal cyst Medical History Non-ST elevation RI (NSTEMI) Anemia Pulmonary edema 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 Metabolic acidosis Stage 5 chronic kidney disease not on chronic dialysis AV fistula right arm--per pt not currently using yet Periodontal pocket Carious teeth Anemia due to chronic kidney disease Sleep apnea Per 2009 polysomnography (per 02/2021 pulmonology note)- pt declined treatment or repeat study-NO DEVICE Diastolic CHF Chronic kidney disease, stage 4 (severe) Secondary hyperparathyroidism of renal origin History of DVT (deep vein thrombosis) Multiple "small" DVTs (25+ years ago, 6 years ago) Fibroids History of hypothyroidism HX-NO MEDS Sensorineural hearing loss (SNHL) of both ears Family history of colon cancer in mother Surgical History History of coronary artery stent placement S/P arteriovenous (AV) fistula creation RIGHT arm 03/27/21 @ [facility] Dr. Subramanian History of dental surgery History of surgery on arm Right Arm basilic vein transposition 2nd stage @ [facility] Dr. Subramanian 06/10/21 History of colonoscopy Family History Mother Diabetes Renal cell cancer Heart disease Colorectal cancer Hypertension Brother Diabetes Renal cell cancer Heart disease Lung cancer Hypertension Gallbladder disease Father Prostate cancer Heart disease Hypertension Grandmother (Maternal) Colorectal cancer Aunt Diabetes Other Alzheimer disease No family history of adverse response to anesthesia Denies family history of Ovarian cancer Myocardial infarction Breast cancer Social History Smoking Status: Never smoker Second Hand Exposure: No; Do You Dip or Chew Tobacco: No; Hx Alcohol Use: Yes Alcohol type: wine Alcohol Intake Frequency: Monthly or Less Hx Substance Use: No Preferred Language: Yemeni Communication Ability: Effective Visual Impairment: Limited Hearing Ability: Hard of Hearing Electroencephalograph Technician Required: No marital status: Single Current Living Situation: Alone current occupational status: retired current occupation: Retired How many Children do You have: 0 Feels Safe at Home: Yes Childhood Exposure to Second-Hand Smoke: No (very little ) Diet: diabetic caffeine: Yes (drinks iced tea every day, sometimes soda ) Dental Care, Regularly: Yes Physical Activity Frequency: 1-2 Times per Week Physical Activity Frequency Comment: weight training, walking Seatbelt Use: always Sunscreen Use: Yes (most times ) Assistive Devices: None Review of Systems Review of Systems: All systems reviewed & are unremarkable except as noted in HPI & below Physical Exam Physical Exam: General: patient resting comfortably, NAD, non-toxic in appearance, AA&O x 4 Skin: warm, dry, intact, no rashes or lesions HEENT: NC/AT, PERRL, EOMI, anicteric sclera, conjunctiva without injection, external ear normal to inspection and nontender, nares patent, moist mucus membranes, dentition intact, no oropharyngeal lesions, neck supple, trachea midline, no LAD, no thyromegaly, no JVD Heart: +S1/S2, regular with ectopy, no m/r/g Lungs: equal air entry bilaterally, no rales/rhonchi/wheezes Abd: +BS, soft, tender in the RUQ, PD port sites with no evidence of infection Ext: warm, 2+ pulses in UE/LE bilaterally, no clubbing/cyanosis, trace bilateral LE edema Neuro: nonfocal, patient AA&O x 4, speech intact, no facial droop, moving all extremities on command with equal strength 5/5 Results & Data Results & Data Vital Signs (Past 12 Hours) Vital Signs Temp Pulse Resp BP Pulse Ox O2 Del Method 01/27/24 06:00 82 19 189/71 H 100 01/27/24 05:33 76 14 180/88 H 100 01/27/24 05:16 100 Room Air 01/27/24 05:06 75 13 217/89 H 100 01/27/24 04:48 75 20 205/96 H 100 01/27/24 04:48 80 01/27/24 04:30 36.6 C 81 22 172/92 H 100 Room Air Laboratory Results Laboratory Results WBC 11.47 K/ul (4.8-10.8) H 01/27/24 04:40 RBC 2.84 M/uL (4.20-5.40) L 01/27/24 04:40 Hgb 9.7 g/dl (12.0-16.0) L 01/27/24 04:40 Hct 28.6 % (37.0-47.0) L 01/27/24 04:40 MCV 100.7 fL (80.0-100.0) H 01/27/24 04:40 MCH 34.2 pg (25.0-34.0) H 01/27/24 04:40 MCHC 33.9 g/dL (32.0-36.0) 01/27/24 04:40 RDW Std Deviation 46.0 fL (36.4-46.3) 01/27/24 04:40 RDW Coeff of Poornima 12.6 % (11.5-14.5) 01/27/24 04:40 Plt Count 302 K/uL (130-400) 01/27/24 04:40 MPV 10.7 fL (9.4-12.4) 01/27/24 04:40 Immature Gran % (Auto) 0.4 % 01/27/24 04:40 Neut % (Auto) 83.1 % 01/27/24 04:40 Lymph % (Auto) 10.1 % 01/27/24 04:40 Robertson % (Auto) 6.0 % 01/27/24 04:40 Eos % (Auto) 0.0 % 01/27/24 04:40 Baso % (Auto) 0.4 % 01/27/24 04:40 Neut # (Auto) 9.52 K/uL (1.40-6.50) H 01/27/24 04:40 Lymph # (Auto) 1.16 K/uL (1.20-3.40) L 01/27/24 04:40 Robertson # (Auto) 0.69 K/uL (0.11-0.59) H 01/27/24 04:40 Eos # (Auto) 0.00 K/uL (0.00-0.50) 01/27/24 04:40 Baso # (Auto) 0.05 K/uL (0.00-0.20) 01/27/24 04:40 Immature Gran # (Auto) 0.05 K/uL (0.01-0.20) 01/27/24 04:40 Sodium 139 mmol/L (136-145) 01/27/24 04:40 Potassium 3.5 mmol/L (3.5-5.1) 01/27/24 04:40 Chloride 95 mmol/L (98-107) L 01/27/24 04:40 Carbon Dioxide 23 mmol/L (21-32) 01/27/24 04:40 Anion Gap 21 (3-11) H 01/27/24 04:40 BUN 48 mg/dl (6-23) H 01/27/24 04:40 Creatinine 10.17 mg/dl (0.6-1.2) H* 01/27/24 04:40 Est Cr Clr Drug Dosing 4.7 ml/min 01/27/24 04:40 Est GFR ( Amer) 3.9 ml/min 01/27/24 04:40 Est GFR (Non-Af Amer) 3.3 ml/min 01/27/24 04:40 BUN/Creatinine Ratio 4.7 (10-20) L 01/27/24 04:40 Glucose 194 mg/dl (70-99(Fasting)) H 01/27/24 04:40 Calcium 9.2 mg/dl (8.6-10.3) 01/27/24 04:40 Total Bilirubin 0.4 mg/dl (0.2-1.0) 01/27/24 04:40 AST 31 U/L (13-39) 01/27/24 04:40 ALT 29 U/L (7-52) 01/27/24 04:40 Alkaline Phosphatase 81 U/L (34-104) 01/27/24 04:40 Total Protein 6.0 gm/dl (6.0-8.3) 01/27/24 04:40 Albumin 3.0 gm/dl (3.4-5.0) L 01/27/24 04:40 Globulin 3.0 gm/dl (2.5-4.0) 01/27/24 04:40 Albumin/Globulin Ratio 1.0 (0.9-2) 01/27/24 04:40 Lipase 13 U/L (11-82) 01/27/24 04:40 Adenovirus (PCR) Not Detected (NotDetected) 01/27/24 05:15 B. pertussis DNA (PCR) Not Detected (NotDetected) 01/27/24 05:15 B.parapertussis DNA PCR Not Detected (NotDetected) 01/27/24 05:15 C. pneumoniae DNA (PCR) Not Detected (NotDetected) 01/27/24 05:15 Coronavirus OC43 (PCR) Not Detected (NotDetected) 01/27/24 05:15 Coronavirus HKU1 (PCR) Not Detected (NotDetected) 01/27/24 05:15 Coronavirus 229E (PCR) Not Detected (NotDetected) 01/27/24 05:15 SARS-CoV-2 (PCR) Not Detected (NotDetected) 01/27/24 05:15 Coronavirus NL63 (PCR) Not Detected (NotDetected) 01/27/24 05:15 Human Metapneumovir PCR Not Detected (NotDetected) 01/27/24 05:15 Influenza Type A (PCR) Not Detected (NotDetected) 01/27/24 05:15 Influenza Type B (PCR) Not Detected (NotDetected) 01/27/24 05:15 M. pneumoniae (PCR) Not Detected (NotDetected) 01/27/24 05:15 Parainfluenza 1 (PCR) Not Detected (NotDetected) 01/27/24 05:15 Parainfluenza 2 (PCR) Not Detected (NotDetected) 01/27/24 05:15 Parainfluenza 3 (PCR) Not Detected (NotDetected) 01/27/24 05:15 Parainfluenza 4 (PCR) Not Detected (NotDetected) 01/27/24 05:15 RSV (PCR) Not Detected (NotDetected) 01/27/24 05:15 Entero/Rhino (PCR) DETECTED (NotDetected) A 01/27/24 05:15 Impressions Abdomen/Pelvis CT 01/27/24 04:40 Exam(s): CT ABDOMEN + PELVIS Without Contrast EXAM: CT Abdomen and Pelvis Without Intravenous Contrast CLINICAL HISTORY: Abdominal Pain TECHNIQUE: Axial computed tomography images of the abdomen and pelvis without intravenous contrast. CTDI is 20.78 mGy and DLP is 1065.95 mGy-cm. Automated exposure control was utilized for the study. A dose lowering technique was utilized adhering to the principles of ALARA. COMPARISON: Renal ultrasound 01/07/[address] abdomen and pelvis 03/16/2019 FINDINGS: Lung bases: Unremarkable. No mass. No consolidation. ABDOMEN: Liver: Unremarkable. Gallbladder and bile ducts: Marked cholelithiasis with distention of the gallbladder and thickening of the wall. No ductal dilation. Pancreas: Unremarkable. No ductal dilation. Spleen: Unremarkable. No splenomegaly. Adrenals: Unremarkable. No mass. Kidneys and ureters: Simple appearing bilateral renal cysts are present, no follow up is needed. The kidneys are otherwise unremarkable. No hydronephrosis. Stomach and bowel: Diverticulosis. No obstruction. No mucosal thickening. PELVIS: Appendix: No findings to suggest acute appendicitis. Bladder: Unremarkable. No stones. Reproductive: Multiple calcified masses in the uterus likely represent fibroids. ABDOMEN and PELVIS: Intraperitoneal space: Unremarkable. No free air. No significant fluid collection. Bones/joints: There are degenerative changes of the spine. No acute fracture. No dislocation. Soft tissues: Unremarkable. Vasculature: Moderate atherosclerosis. No abdominal aortic aneurysm. Lymph nodes: Unremarkable. No enlarged lymph nodes. Tubes, lines and devices: The peritoneal dialysis catheter is noted. IMPRESSION: 1. Marked cholelithiasis with distention of the gallbladder and thickening of the wall. This most consistent with acute cholecystitis. 2. Diverticulosis. Electronically signed by: Kena Henson MD 01/27/24 05:57 AM PG Care Time/CCT Total # of Minutes Spent Total Time Spent with Patient: Total time spent is greater than 50% in coordination of care (as documented) at patient's floor/unit and/or counseling patient: Coding Level of Care Code 84953 INT INP/OBS CARE 3/75MIN Diagnoses Acute cholecystitis K81.0 CAD (coronary artery disease) I25.10 ESRD (end stage renal disease) N18.6
[2024-01-27 06:58] LABS: Partial Thromboplastin Ratio 0.9; Partial Thromboplastin Time 23 Seconds (21-31); Prothrombin Time 10.9 Seconds (9.0-12.0)
--- NOTE | 2024-01-27 09:02 | Nephrology Consultation ---
Date of Consultation January 27, 2024 Assessment & Plan (1) ESRD (end stage renal disease): Attributed to DKD and hypertension. Maintained on PD. Discussed potential need to transition to HD perioperatively. I also discussed the plan of care with Dr. Madrigal this AM. I will run an HD treatment today to assess the AVF and clearance. The AVF was working well previously with 16 g needles. Orders for HD today were entered into the EHR and communicated with the building architectural designer. Maintain a renal diet and document I/O's. Sevelamer QAC. Repeat a serum metabolic profile tomorrow AM. Medications are currently appropriately dosed for kidney function. (2) Cholecystitis: Started on Zosyn. POC discussed with general surgery. Will transition to HD with monitoring. Clinical presentation is not consistent with PD peritonitis. Serial exams/monitoring will be provided. Possible OR in next few days. (3) Hypertension: Volume status reasonably controlled. BP acceptable. (4) Anemia: Epogen 38146 units with HD today. History of Present Illness Attending Physician: Juan Carlos Jacob MD History of Present Illness Margaux Guthrie is a 73-year-old female with ESRD attributed to diabetic kidney disease and hypertension. Margaux is maintained on peritoneal dialysis at [facility] under the care of Dr. Wing. She performs NCCPD (4 x 2200 ml - ave dwell 1.5 hrs, no last fill). EDW 76 kg. She has not had complications with dialysis. Her last treatment was when a PET was completed on Thursday. Kt/V ~1.7 previously. Complications of HD also include secondary hyperparathyroidism and anemia. She is maintained on maintenance Venofer 200 mg monthly and Mircera 150 mcg. She is maintained on sevelamer QAC for hyperphosphatemia. Calcitriol recently held due to elevated serum calcium. Margaux started HD in May 2023 during a hospitalization. She was maintained on HD via a RUE AVF until July when she transitioned to PD. There were no complications with HD. I discussed the patient's history with technical staff assistant at [facility]. A right arm basilic vein endovascular AV fistula was placed in March 2021 and transposition performed in May 2021. Medical history is also notable for CAD (history of PCI with stent), gout, and PAD. Margaux presented to the ER at [facility] yesterday for evaluation of sudden onset abdominal pain. She describes feeling unwell with some nausea and fatigue for several days. She denies fevers or chills. She described sudden onset of intense gen eralized but more pronounced on the right abdominal discomfort. Evaluation included a CT scan demonstrating cholelithiasis with a notably distended gallbladder and evidence of cholecystitis. WBC 11.4. Antibiotic therapy started with Zosyn. Surgical consultation completed. Abdominal US pending. I spoke with general surgery today. They are planning to take the patient to the OR but ideally would like to wait until Plavix has been held for ideally a few days. Allergies Allergy/AdvReac Type Severity Reaction Status Date / Time insect venom Allergy Intermediate Swelling Verified 12/23/23 13:58 adhesive tape Allergy Mild Rash Verified 12/23/23 13:58 dulaglutide [From [facility]] AdvReac Mild Constipation, Verified 12/23/23 13:58 vomiting Home Medications Medication Instructions Recorded Confirmed Type lancets (Accu-Chek Fastclix Lancet #50 ea 12/16/18 12/23/23 History Drum) aspirin 81 mg chewable tablet 81 mg PO QAM 11/07/19 01/27/24 History mecobalamin (vitamin B12) 1,000 1,000 mcg PO QAM 09/13/20 01/27/24 History mcg chewable tablet (B12 Active) blood sugar diagnostic (Accu-Chek 10/15/21 12/23/23 History SmartView Test Strips) cholecalciferol (vitamin D3) 62.5 62.5 mcg PO HS 06/06/22 12/23/23 History mcg (2,500 unit) capsule insulin aspart U-100 100 unit/mL 14 unit subcut TIDWMEAL PRN bg 03/10/23 01/27/24 History (3 mL) subcutaneous pen (Novolog LEVELS FlexPen U-100 Insulin aspart) Walking Cane #1 ea 06/30/23 12/23/23 Rx triamcinolone acetonide 0.1 % 1 applic topical BID PRN Anxiety 07/28/23 01/27/24 History topical ointment clopidogrel 75 mg tablet 75 mg PO QAM #90 tabs 08/18/23 01/27/24 Rx pen needle, diabetic 32 gauge x #100 ea 08/24/23 12/23/23 Rx 5/32" (BD Nicki 2nd Gen Pen Needle) buspirone 7.5 mg tablet 7.5 mg PO DAILY PRN anxiety #90 09/04/23 01/27/24 Rx tabs furosemide 40 mg tablet 80 mg PO BID17 09/08/23 01/27/24 History sucroferric oxyhydroxide 500 mg 500 mg PO TID #90 tabs 11/19/23 01/27/24 Rx chewable tablet (Velphoro) insulin degludec 100 unit/mL (3 18 unit (0.18 mL) subcut DAILY BG 12/14/23 01/27/24 Rx mL) subcutaneous pen (Tresiba levels 90 days #16.2 mL FlexTouch U-100 insulin) blood-glucose sensor (FreeStyle #2 ea 12/15/23 12/23/23 Rx Kvng 3 Sensor device) vitamin B complex and vitamin C 1 cap PO QAM #90 caps 12/15/23 01/27/24 Rx no.20-folic acid 1 mg capsule (Renal Caps) metoprolol succinate 50 mg 50 mg PO QAM #90 tabs 12/23/23 01/27/24 Rx tablet,extended release 24 hr potassium chloride 10 mEq 20 meq (2 x 10 mEq) PO BID #120 12/31/23 01/27/24 Rx tablet,extended release tabs rosuvastatin 40 mg tablet 40 mg PO PM 01/27/24 01/27/24 History Patient History Medical History Non-ST elevation WI (NSTEMI) Anemia Pulmonary edema 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 Metabolic acidosis Stage 5 chronic kidney disease not on chronic dialysis AV fistula right arm--per pt not currently using yet Periodontal pocket Carious teeth Anemia due to chronic kidney disease Sleep apnea Per 2009 polysomnography (per 02/2021 pulmonology note)- pt declined treatment or repeat study-NO DEVICE Diastolic CHF Chronic kidney disease, stage 4 (severe) Secondary hyperparathyroidism of renal origin History of DVT (deep vein thrombosis) Multiple "small" DVTs (25+ years ago, 6 years ago) Fibroids History of hypothyroidism HX-NO MEDS Sensorineural hearing loss (SNHL) of both ears Family history of colon cancer in mother Surgical History History of coronary artery stent placement S/P arteriovenous (AV) fistula creation RIGHT arm 03/27/21 @ [facility] Dr. Subramanian History of dental surgery History of surgery on arm Right Arm basilic vein transposition 2nd stage @ [facility] Dr. Subramanian 06/10/21 History of colonoscopy Family History Mother Diabetes Renal cell cancer Heart disease Colorectal cancer Hypertension Brother Diabetes Renal cell cancer Heart disease Lung cancer Hypertension Gallbladder disease Father Prostate cancer Heart disease Hypertension Grandmother (Maternal) Colorectal cancer Aunt Diabetes Other Alzheimer disease No family history of adverse response to anesthesia Denies family history of Ovarian cancer Myocardial infarction Breast cancer Social History Smoking Status: Never smoker Second Hand Exposure: No; Do You Dip or Chew Tobacco: No; Hx Alcohol Use: Yes Alcohol type: wine Alcohol Intake Frequency: Monthly or Less Hx Substance Use: No Preferred Language: Monegasque Communication Ability: Effective Visual Impairment: Limited Hearing Ability: Hard of Hearing Movie Editor Required: No marital status: Single Current Living Situation: Alone current occupational status: retired current occupation: Retired How many Children do You have: 0 Feels Safe at Home: Yes Childhood Exposure to Second-Hand Smoke: No (very little ) Diet: diabetic caffeine: Yes (drinks iced tea every day, sometimes soda ) Dental Care, Regularly: Yes Physical Activity Frequency: 1-2 Times per Week Physical Activity Frequency Comment: weight training, walking Seatbelt Use: always Sunscreen Use: Yes (most times ) Assistive Devices: None Review of Systems Review of Systems: All systems reviewed & are unremarkable except as noted in HPI & below Physical Exam Constitutional: well developed; no acute distress Eyes: + anicteric sclerae ENMT: Mouth: no oral mucosal abnormality and oral mucous membranes not dry Neck: normal visual inspection and trachea midline Respiratory: normal respiratory effort Auscultation: lungs clear to auscultation bilaterally and + rales Cardiovascular: Rate/Rhythm: regular rate Heart Sounds: normal S1 and normal S2 Extremities: + edema Gastrointestinal (Abdomen): Inspection/Auscultation: abdomen normal to inspection; abdomen not distended Percussion/Palpation: + abdomen tender and abdomen soft; no guarding and abdomen not rigid Musculoskeletal: Extremities: no cyanosis and no clubbing Skin: normal turgor; no lesions Neurologic: Motor/Sensory: no tremor and no asterixis Psychiatric: Orientation: alert and oriented x 3 Results & Data Vital Signs (Past 12 Hours) Vital Signs Temp Pulse Resp BP Pulse Ox O2 Del Method 01/27/24 08:47 81 01/27/24 08:00 166/88 H 01/27/24 07:51 76 18 99 Room Air 01/27/24 07:30 84 22 165/84 H 74 L Room Air 01/27/24 07:15 84 19 99 01/27/24 07:15 76 165/89 H 01/27/24 06:33 79 17 163/114 H 100 01/27/24 06:15 80 19 176/92 H 100 01/27/24 06:00 82 19 189/71 H 100 01/27/24 05:33 76 14 180/88 H 100 01/27/24 05:16 100 Room Air 01/27/24 05:06 75 13 217/89 H 100 01/27/24 04:48 75 20 205/96 H 100 01/27/24 04:48 80 01/27/24 04:30 36.6 C 81 22 172/92 H 100 Room Air Laboratory Results Laboratory Results - last 24 hr 01/27/24 01/27/24 04:40 05:15 WBC 11.47 H RBC 2.84 L Hgb 9.7 L Hct 28.6 L MCV 100.7 H MCH 34.2 H MCHC 33.9 RDW Std Deviation 46.0 RDW Coeff of Poornima 12.6 Plt Count 302 MPV 10.7 Immature Gran % (Auto) 0.4 Neut % (Auto) 83.1 Lymph % (Auto) 10.1 O'Brien % (Auto) 6.0 Eos % (Auto) 0.0 Baso % (Auto) 0.4 Neut # (Auto) 9.52 H Lymph # (Auto) 1.16 L O'Brien # (Auto) 0.69 H Eos # (Auto) 0.00 Baso # (Auto) 0.05 Immature Gran # (Auto) 0.05 PT 10.9 INR 1.0 APTT 23 PTT Ratio 0.9 Sodium 139 Potassium 3.5 Chloride 95 L Carbon Dioxide 23 Anion Gap 21 H BUN 48 H Creatinine 10.17 H* Est Cr Clr Drug Dosing 4.7 Est GFR ( Amer) 3.9 Est GFR (Non-Af Amer) 3.3 BUN/Creatinine Ratio 4.7 L Glucose 194 H Calcium 9.2 Total Bilirubin 0.4 AST 31 ALT 29 Alkaline Phosphatase 81 Total Protein 6.0 Albumin 3.0 L Globulin 3.0 Albumin/Globulin Ratio 1.0 Lipase 13 Adenovirus (PCR) Not Detected B. pertussis DNA (PCR) Not Detected B.parapertussis DNA PCR Not Detected C. pneumoniae DNA (PCR) Not Detected Coronavirus OC43 (PCR) Not Detected Coronavirus HKU1 (PCR) Not Detected Coronavirus 229E (PCR) Not Detected SARS-CoV-2 (PCR) Not Detected Coronavirus NL63 (PCR) Not Detected Human Metapneumovir PCR Not Detected Influenza Type A (PCR) Not Detected Influenza Type B (PCR) Not Detected M. pneumoniae (PCR) Not Detected Parainfluenza 1 (PCR) Not Detected Parainfluenza 2 (PCR) Not Detected Parainfluenza 3 (PCR) Not Detected Parainfluenza 4 (PCR) Not Detected RSV (PCR) Not Detected Entero/Rhino (PCR) DETECTED A PG Care Time/CCT Total # of Minutes Spent Total Time Spent with Patient: Total time spent is greater than 50% in coordination of care (as documented) at patient's floor/unit and/or counseling patient: Coding Level of Care Code 87516 IN/OBS CONSULT LVL 5,80M Diagnoses ESRD (end stage renal disease) N18.6 Cholecystitis K81.9 Essential hypertension I10 Hypertension type: essential hypertension Anemia D64.9 (3) Hypertension Hypertension type: essential hypertension Qualified Code(s): I10 - Essential (primary) hypertension
--- NOTE | 2024-01-27 09:51 | Ultrasound Report ---
US gallbladder CLINICAL HISTORY: Cholelithiasis. COMPARISON STUDY: CT of the abdomen and pelvis January 27, 2024. FINDINGS: No hepatic lesions are identified. There is no biliary ductal dilatation. Numerous gallston es within the gallbladder are present. The gallbladder is distended. The gallbladder wall is moderate ly thickened and edematous. No sonographic Ledbetter sign was elicited. The pancreatic body is normal. H ead and tail are obscured. There is no right hydronephrosis. IMPRESSION: 1. Cholelithiasis with distended gallbladder and gallbladder wall thickening. No sonographic Ledbetter sign. The findings could represent acute or chronic cholecystitis. A nuclear medicine hepatobiliary s can could be obtained to differentiate between these possibilities. 2. No biliary ductal dilatation. ACT 112: Negative or not required by law. Electronically signed by: Connor Lucero M.D. 01/27/2024 9:49 AM
[2024-01-27] MEDS ORDERED: ONDANSETRON INJ 2 MG/ML 2 ML VIAL IV PRN (09:56)
[2024-01-27] MEDS ORDERED: CARBOHYDRATES FOR HYPOGLYCEMIA PO PRN (09:56)
[2024-01-27] MEDS ORDERED: busPIRone 7.5 MG TAB PO PRN (09:56)
[2024-01-27] MEDS ORDERED: GLUCOSE 10 TAB/TUBE PO PRN (09:56)
[2024-01-27] MEDS ORDERED: DEXTROSE 50% 50 ML SYRINGE IV PRN (09:56)
[2024-01-27] MEDS ORDERED: GLUCOSE 40% GEL 15 GM TUBE PO PRN (09:56)
[2024-01-27] MEDS ORDERED: ACETAMINOPHEN 325 MG TAB PO PRN (09:56)
[2024-01-27] MEDS ORDERED: GLUCAGON FOR INJ 1 MG VIAL SQ PRN (09:56)
[2024-01-27 10:29] LABS: Appearance Urine Cloudy (Clear); Bacteria Urine Automated 1+ (None Seen); Bilirubin Urine Negative (Negative); Blood Urine Trace (Negative); Cast Urine Automated 0-2 /lpf (0-2); Color Urine Yellow; Glucose Urine UA Trace (Negative); Ketones Urine Trace (Negative); Leukocyte Esterase Urine 1+ (Negative); Nitrite Urine Negative (Negative); Protein Urine 3+ (Negative); Specific Gravity Urine 1.014 (1.000-1.030); Urobilinogen Urine Negative (Negative); WBC Urine Automated 21-50 /hpf (0-5)
[2024-01-27] MEDS: EPOETIN ALFA 10,000 UNITS/ML VIAL IV ONE (11:10)
[2024-01-27] MEDS: INSULIN ASPART PER UNIT CHARGE SC SCH ×2 (13:56→18:27)
[2024-01-27] MEDS: MoRPHine SULFATE 4 MG/ML 1 ML CARP\\VIAL IV PRN (14:06)
[2024-01-27] MEDS: FUROSEMIDE 80 MG TAB PO SCH (14:47)
[2024-01-27] MEDS: METOPROLOL SUCC 50MG EXT REL TAB PO SCH (14:48)
[2024-01-27] MEDS ORDERED: TRIAMCINOLONE ACET 0.1% CR 80 GM TUBE EXT PRN (14:57)
[2024-01-27] MEDS: LANTUS PER UNIT CHARGE SQ SCH ×2 (15:00→21:34)
[2024-01-27] MEDS: METOPROLOL SUCC 25MG EXT REL TAB PO SCH (15:27)
[2024-01-27] MEDS: PIPERACILLIN/TAZOBACTAM 4.5 GM/100 ML BAG IV SCH (15:27)
--- NOTE | 2024-01-27 17:21 | Cardiology Consultation ---
Date of Consultation January 27, 2024 Assessment & Plan (1) CAD (coronary artery disease): (2) Heart failure with preserved ejection fraction: (3) Antiplatelet or antithrombotic long-term use: (4) Murmur: Plan 1. Coronary artery disease: Obstructive disease treated with percutaneous intervention on 06/23/2023. Uncomplicated. No current symptoms suggestive of angina or coronary insufficiency. Granted, she is quite sedentary but no high risk symptoms. Normally should be continued on dual antiplatelet therapy for at least a year. However, given the relatively remote nature of her intervention will be reasonable to stop the Plavix if necessary. Continue 81 mg of aspirin. Continue aggressive secondary prevention with high-dose rosuvastatin. 2. Heart failure with preserved ejection fraction: Well-controlled with dialysis. No evidence of volume overload or pulmonary vascular congestion currently. 3. Murmur: There is been some discussion of a murmur in her record, but no documentation of her murmur on her recent evaluations including last evening. This is likely related to mitral regurgitation. No symptoms suggestive of severe valvular heart disease. With respect to her planned operation tomorrow, it would seem reasonable to hold Plavix if necessary. I will order an EKG now. I will order an echocardiogram for the morning to evaluate the murmur. She has an elevated cardiac risk based primarily on her current comorbidities. Revised cardiac risk index suggests a complication rate between 5 and 10%. However, I do not believe there is a good way to mitigate this risk or that additional testing will provide additional risk stratification. I would simply continue her current medications in the perioperative period including her beta-blockade. Standard precautions would apply which would include maintaining good oxygenation, avoiding significant blood loss, anemia, hypotension, severe hypertension or tachycardia. History of Present Illness Reason for Consultation: Preoperative evaluation Requesting Physician: Kaitlin Attending Physician: Juan Carlos Jacob MD History of Present Illness The patient is a 73-year-old woman with a history of coronary artery disease having undergone percutaneous intervention to the LAD in May 2023. She also suffers from end-stage renal disease, currently on dialysis, heart failure with preserved ejection fraction, hypertension, hyperlipidemia and diabetes mellitus. Patient was admitted to the hospital for symptoms of frequent vomiting and abdominal discomfort. She was discovered to have findings consistent with acute cholecystitis and advised to undergo cholecystectomy. Patient states that her symptoms started few days ago. She would vomit randomly. She began to develop symptoms of right upper quadrant discomfort as well. No associated fevers or chills. In general she is a very sedentary individual. She is able to ambulate, but does not do this regularly or for extended distances. She uses a cane and does have some balance issues. She did not report other limiting symptoms such as dyspnea or chest pain. She does not have chest pain at rest or chest pain with exertion. She cannot recall the symptoms surrounding her percutaneous intervention in May but does feel that she had "more energy" afterwards. She has not been aware of palpitations. No orthopnea. Some mild lower extremity edema that waxes and wanes in severity. According to the patient she has been doing well on dialysis. She occasionally has some symptoms of orthostasis when standing rapidly. No presyncope or history of syncope. Allergies Allergy/AdvReac Type Severity Reaction Status Date / Time insect venom Allergy Intermediate Swelling Verified 12/23/23 13:58 adhesive tape Allergy Mild Rash Verified 12/23/23 13:58 dulaglutide [From [facility]] AdvReac Mild Constipation, Verified 12/23/23 13:58 vomiting Home Medications Medication Instructions Recorded Confirmed Type lancets (Accu-Chek Fastclix Lancet #50 ea 12/16/18 12/23/23 History Drum) aspirin 81 mg chewable tablet 81 mg PO QAM 11/07/19 01/27/24 History mecobalamin (vitamin B12) 1,000 1,000 mcg PO QAM 09/13/20 01/27/24 History mcg chewable tablet (B12 Active) blood sugar diagnostic (Accu-Chek 10/15/21 12/23/23 History SmartView Test Strips) cholecalciferol (vitamin D3) 62.5 62.5 mcg PO HS 06/06/22 12/23/23 History mcg (2,500 unit) capsule insulin aspart U-100 100 unit/mL 14 unit subcut TIDWMEAL PRN bg 03/10/23 01/27/24 History (3 mL) subcutaneous pen (Novolog LEVELS FlexPen U-100 Insulin aspart) Walking Cane #1 ea 06/30/23 12/23/23 Rx triamcinolone acetonide 0.1 % 1 applic topical BID PRN Anxiety 07/28/23 01/27/24 History topical ointment clopidogrel 75 mg tablet 75 mg PO QAM #90 tabs 08/18/23 01/27/24 Rx pen needle, diabetic 32 gauge x #100 ea 08/24/23 12/23/23 Rx 5/32" (BD Nicki 2nd Gen Pen Needle) buspirone 7.5 mg tablet 7.5 mg PO DAILY PRN anxiety #90 09/04/23 01/27/24 Rx tabs furosemide 40 mg tablet 80 mg PO QAM 09/08/23 01/27/24 History sucroferric oxyhydroxide 500 mg 500 mg PO TID #90 tabs 11/19/23 01/27/24 Rx chewable tablet (Velphoro) insulin degludec 100 unit/mL (3 18 unit (0.18 mL) subcut DAILY BG 12/14/23 01/27/24 Rx mL) subcutaneous pen (Tresiba levels 90 days #16.2 mL FlexTouch U-100 insulin) vitamin B complex and vitamin C 1 cap PO QAM #90 caps 12/15/23 01/27/24 Rx no.20-folic acid 1 mg capsule (Renal Caps) metoprolol succinate 50 mg 50 mg PO QAM #90 tabs 12/23/23 01/27/24 Rx tablet,extended release 24 hr potassium chloride 10 mEq 20 meq (2 x 10 mEq) PO BID #120 12/31/23 01/27/24 Rx tablet,extended release tabs blood-glucose sensor (FreeStyle #2 ea 01/27/24 Rx Kvng 3 Plus Sensor device) rosuvastatin 40 mg tablet 40 mg PO PM 01/27/24 01/27/24 History Patient History Medical History Non-ST elevation [place] (NSTEMI) Anemia Pulmonary edema 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 Metabolic acidosis Stage 5 chronic kidney disease not on chronic dialysis AV fistula right arm--per pt not currently using yet Periodontal pocket Carious teeth Anemia due to chronic kidney disease Sleep apnea Per 2009 polysomnography (per 02/2021 pulmonology note)- pt declined treatment or repeat study-NO DEVICE Diastolic CHF Chronic kidney disease, stage 4 (severe) Secondary hyperparathyroidism of renal origin History of DVT (deep vein thrombosis) Multiple "small" DVTs (25+ years ago, 6 years ago) Fibroids History of hypothyroidism HX-NO MEDS Sensorineural hearing loss (SNHL) of both ears Family history of colon cancer in mother Surgical History History of coronary artery stent placement S/P arteriovenous (AV) fistula creation RIGHT arm 03/27/21 @ [facility] Dr. Subramanian History of dental surgery History of surgery on arm Right Arm basilic vein transposition 2nd stage @ [facility] Dr. Subramanian 06/10/21 History of colonoscopy Family History Mother Diabetes Renal cell cancer Heart disease Colorectal cancer Hypertension Brother Diabetes Renal cell cancer Heart disease Lung cancer Hypertension Gallbladder disease Father Prostate cancer Heart disease Hypertension Grandmother (Maternal) Colorectal cancer Aunt Diabetes Other Alzheimer disease No family history of adverse response to anesthesia Denies family history of Ovarian cancer Myocardial infarction Breast cancer Social History Smoking Status: Never smoker Second Hand Exposure: No; Do You Dip or Chew Tobacco: No; Hx Alcohol Use: Yes Alcohol type: wine Alcohol Intake Frequency: Monthly or Less Hx Substance Use: No Preferred Language: Divehi Communication Ability: Effective Visual Impairment: Limited 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 Ability: 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 Handtools Required: No Beliefs That Will Affect Care: None marital status: Single Current Living Situation: Alone current occupational status: retired current occupation: Retired How many Children do You have: 0 Feels Safe at Home: Yes Childhood Exposure to Second-Hand Smoke: No (very little ) Diet: diabetic caffeine: Yes (drinks iced tea every day, sometimes soda ) Dental Care, Regularly: Yes Physical Activity Frequency: 1-2 Times per Week Physical Activity Frequency Comment: weight training, walking Seatbelt Use: always Sunscreen Use: Yes (most times ) Assistive Devices: Cane Review of Systems Review of Systems: Per HPI Physical Exam Physical Exam: She is alert and oriented x3. Mood affect appear normal. She answered all questions appropriately. Somewhat somnolent. HEENT: Sclerae are anicteric. Pupils are equal and reactive to light and accommodation. Extraocular movements were intact. Neuro: Cranial nerves intact Lungs: Lungs are clear to auscultation bilaterally. There are no rales wheezes or rhonchi. She has normal respiratory effort without use of accessory muscles. There is normal pulmonary excursion. Cardiac: The rhythm was regular. S1 and S2 were normal. Holosystolic murmur. The PMI was not markedly displaced on palpation. Extremities: Patient has bilateral radial pulses that are equal in intensity. There is no evidence cyanosis or clubbing. Compression devices on both legs. Some mild ankle edema. Skin: There are no rashes noted on examination today. Results & Data Vital Signs (Past 12 Hours) Vital Signs Temp Pulse Pulse Pulse Resp BP BP 01/27/24 14:20 01/27/24 14:20 36.8 C 81 18 112/77 01/27/24 13:41 36.8 C 81 18 112/77 01/27/24 13:30 36.5 C 68 124/63 01/27/24 13:00 78 111/59 L 01/27/24 12:30 69 119/58 L 01/27/24 12:00 76 130/63 01/27/24 11:30 75 130/64 01/27/24 11:00 72 152/74 H 01/27/24 10:30 79 150/75 H 01/27/24 10:18 77 160/70 H 01/27/24 10:05 36.8 C 01/27/24 09:27 172/86 H 01/27/24 09:24 77 19 01/27/24 08:47 81 01/27/24 08:39 89 21 01/27/24 08:30 141/78 H 01/27/24 08:15 159/80 H 01/27/24 08:00 166/88 H 01/27/24 07:51 76 18 01/27/24 07:30 84 22 165/84 H 01/27/24 07:15 84 19 01/27/24 07:15 76 165/89 H 01/27/24 06:33 79 17 163/114 H 01/27/24 06:15 80 19 176/92 H 01/27/24 06:00 82 19 189/71 H 01/27/24 05:33 76 14 180/88 H 01/27/24 05:16 Pulse Ox O2 Del Method O2 Flow Rate 01/27/24 14:20 Room Air 01/27/24 14:20 100 Room Air 01/27/24 13:41 98 Nasal Cannula 2.0 01/27/24 13:30 01/27/24 13:00 01/27/24 12:30 01/27/24 12:00 01/27/24 11:30 01/27/24 11:00 01/27/24 10:30 01/27/24 10:18 01/27/24 10:05 01/27/24 09:27 01/27/24 09:24 100 Nasal Cannula 2 01/27/24 08:47 01/27/24 08:39 100 Nasal Cannula 2 01/27/24 08:30 01/27/24 08:15 01/27/24 08:00 01/27/24 07:51 99 Room Air 01/27/24 07:30 74 L Room Air 01/27/24 07:15 99 01/27/24 07:15 01/27/24 06:33 100 01/27/24 06:15 100 01/27/24 06:00 100 01/27/24 05:33 100 01/27/24 05:16 100 Room Air Laboratory Results Abnormal Lab Results 01/27/24 01/27/24 01/27/24 04:40 05:15 14:11 WBC 11.47 H RBC 2.84 L Hgb 9.7 L Hct 28.6 L MCV 100.7 H MCH 34.2 H MCHC 33.9 RDW Std Deviation 46.0 RDW Coeff of Poornima 12.6 Plt Count 302 MPV 10.7 Immature Gran % (Auto) 0.4 Neut % (Auto) 83.1 Lymph % (Auto) 10.1 [place] % (Auto) 6.0 Eos % (Auto) 0.0 Baso % (Auto) 0.4 Neut # (Auto) 9.52 H Lymph # (Auto) 1.16 L [place] # (Auto) 0.69 H Eos # (Auto) 0.00 Baso # (Auto) 0.05 Immature Gran # (Auto) 0.05 PT 10.9 INR 1.0 APTT 23 PTT Ratio 0.9 Sodium 139 Potassium 3.5 Chloride 95 L Carbon Dioxide 23 Anion Gap 21 H BUN 48 H Creatinine 10.17 H* Est Cr Clr Drug Dosing 4.7 Est GFR ( Amer) 3.9 Est GFR (Non-Af Amer) 3.3 BUN/Creatinine Ratio 4.7 L Glucose 194 H POC Glucose 130 H Calcium 9.2 Total Bilirubin 0.4 AST 31 ALT 29 Alkaline Phosphatase 81 Total Protein 6.0 Albumin 3.0 L Globulin 3.0 Albumin/Globulin Ratio 1.0 Lipase 13 Urine Color Urine Appearance Urine pH Ur Specific [place] Urine Protein Urine Glucose (UA) Urine Ketones Urine Blood Urine Nitrite Urine Bilirubin Urine Urobilinogen Ur Leukocyte Esterase Urine WBC (Auto) Urine RBC (Auto) U Hyaline Cast (Auto) U Epithel Cells (Auto) Urine Bacteria (Auto) Adenovirus (PCR) Not Detected B. pertussis DNA (PCR) Not Detected B.parapertussis DNA PCR Not Detected C. pneumoniae DNA (PCR) Not Detected Coronavirus OC43 (PCR) Not Detected Coronavirus HKU1 (PCR) Not Detected Coronavirus 229E (PCR) Not Detected SARS-CoV-2 (PCR) Not Detected Coronavirus NL63 (PCR) Not Detected Human Metapneumovir PCR Not Detected Influenza Type A (PCR) Not Detected Influenza Type B (PCR) Not Detected M. pneumoniae (PCR) Not Detected Parainfluenza 1 (PCR) Not Detected Parainfluenza 2 (PCR) Not Detected Parainfluenza 3 (PCR) Not Detected Parainfluenza 4 (PCR) Not Detected RSV (PCR) Not Detected Entero/Rhino (PCR) DETECTED A 01/27/24 Unknown WBC RBC Hgb Hct MCV MCH MCHC RDW Std Deviation RDW Coeff of Poornima Plt Count MPV Immature Gran % (Auto) Neut % (Auto) Lymph % (Auto) [place] % (Auto) Eos % (Auto) Baso % (Auto) Neut # (Auto) Lymph # (Auto) [place] # (Auto) Eos # (Auto) Baso # (Auto) Immature Gran # (Auto) PT INR APTT PTT Ratio Sodium Potassium Chloride Carbon Dioxide Anion Gap BUN Creatinine Est Cr Clr Drug Dosing Est GFR ( Amer) Est GFR (Non-Af Amer) BUN/Creatinine Ratio Glucose POC Glucose Calcium Total Bilirubin AST ALT Alkaline Phosphatase Total Protein Albumin Globulin Albumin/Globulin Ratio Lipase Urine Color Yellow Urine Appearance Cloudy A Urine pH 8.0 H Ur Specific [place] 1.014 Urine Protein 3+ H Urine Glucose (UA) Trace H Urine Ketones Trace H Urine Blood Trace H Urine Nitrite Negative Urine Bilirubin Negative Urine Urobilinogen Negative Ur Leukocyte Esterase 1+ H Urine WBC (Auto) 21-50 H Urine RBC (Auto) 6-10 H U Hyaline Cast (Auto) 0-2 U Epithel Cells (Auto) 6-10 H Urine Bacteria (Auto) 1+ H Adenovirus (PCR) B. pertussis DNA (PCR) B.parapertussis DNA PCR C. pneumoniae DNA (PCR) Coronavirus OC43 (PCR) Coronavirus HKU1 (PCR) Coronavirus 229E (PCR) SARS-CoV-2 (PCR) Coronavirus NL63 (PCR) Human Metapneumovir PCR Influenza Type A (PCR) Influenza Type B (PCR) M. pneumoniae (PCR) Parainfluenza 1 (PCR) Parainfluenza 2 (PCR) Parainfluenza 3 (PCR) Parainfluenza 4 (PCR) RSV (PCR) Entero/Rhino (PCR) Diagnostic Findings CT scan of the abdomen as well as right upper quadrant ultrasound are suggestive of acute cholecystitis. Cardiac catheterization 06/23/2023: 95% mid LAD with 60 to 70% ostial D2 lesions. 50% proximal circumflex with 30% mid circumflex disease. Right coronary artery 100% chronic total occlusion in the distal segment filled via [id number] collaterals. Echocardiogram 06/22/2023: Normal LV systolic function with ejection fraction of 50 to 55%. Mild mitral regurgitation. Mild LVH. PG Care Time/CCT Total # of Minutes Spent Total Time Spent with Patient: Total time spent is greater than 50% in coordination of care (as documented) at patient's floor/unit and/or counseling patient: Coding Level of Care Code 46440 INT INP/OBS CARE 3/75MIN Diagnoses CAD (coronary artery disease) I25.10 Heart failure with preserved ejection fraction I50.30 Antiplatelet or antithrombotic long-term use Z79.02 Murmur R01.1
--- NOTE | 2024-01-27 18:50 | Communication Note ---
Date of Service: January 27, 2024 Saw patient following hemodialysis. She was resting comfortably. Mild right-sided abdominal pain - better than earlier in the day. Denies any dyspnea. Denies any chest pain. Denies any nausea or emesis. She denies any purulent PD fluid during PD at home. Denies malodor of the PD fluid. VSS although BPs are low-normal, no fever, o2 sats wnl. exam: gen - NAD, looks tired mouth - MM dry neck - no JVD heart - RRR, s1 s2, 2/6 systolic murmur LSB lungs - CTA b/l abd - soft, mildly tender to palpation RUQ, BS+, no HSM; PD catheter present; no peritoneal signs ext - pulses 2+ b/l labs from this AM reviewed CT a/p reviewed RUQ u/s reviewed - distended gall bladder, gallstones, wall thickening A/P: 1. likely acute cholecystitis; cont IV zosyn, NPO status, pain meds, anti- emetics. Appreciate gen surg consultation. To OR tomorrow for lap cj? Plavix remains on hold. 2. murmur - echo early 2023 without significant valvular pathology; Dr Walton ordered new echo for the am along with EKG. No recent ischemic symptoms. Possible flow murmur due to right arm AV fistula? 3. T2DM - lower lantus to 7 units HS from BID dosing 4. Hold lasix due to NPO status and low-normal BPs. Cont meto succ but lower dose from 50mg/day to 25/day. Recheck CMP in am. Thus far no evidence of any CBD stone or complicating pancreatitis. Juan Carlos Jacob MD
[2024-01-27] MEDS: ROSUVASTATIN CALCIUM 20 MG TAB PO SCH (21:29)
[2024-01-27] MEDS: INFLUENZA VACC TS2024-25(65y+)/PF (IIV3) 0.5mL Syr IM ONE (21:35)
[2024-01-28 06:10] LABS: Basophils # (auto) 0.05 K/uL (0.00-0.20); Basophils % (auto) 0.3 %; Eosinophils # (auto) 0.01 K/uL (0.00-0.50); Eosinophils % (auto) 0.1 %; Hematocrit (blood only) 24.3 % (37.0-47.0); Hemoglobin 7.9 g/dl (12.0-16.0); Immature Granulocytes # (auto) 0.12 K/uL (0.01-0.20); Immature Granulocytes % (auto) 0.8 %; Lymphocytes # (auto) 1.02 K/uL (1.20-3.40); Mean Corpuscular Hemoglobin 34.2 pg (25.0-34.0); Mean Corpuscular Hgb Conc 32.5 g/dL (32.0-36.0); Mean Corpuscular Volume 105.2 fL (80.0-100.0); Mean Platelet Volume 10.9 fL (9.4-12.4); Monocytes # (auto) 0.97 K/uL (0.11-0.59); Monocytes % (auto) 6.7 %; Neutrophils % (auto) 85.1 %; Platelet Count 198 K/uL (130-400); RDW Coefficient of Variation 13.2 % (11.5-14.5); RDW Standard Deviation 50.6 fL (36.4-46.3); Red Blood Count 2.31 M/uL (4.20-5.40); White Blood Count 14.57 K/ul (4.8-10.8)
[2024-01-28 06:26] LABS: Albumin Globulin Ratio 0.9 (0.9-2); Albumin Level 2.3 gm/dl (3.4-5.0); BUN Creatinine Ratio 4.5 (10-20); Bilirubin,Total 0.7 mg/dl (0.2-1.0); Calcium 8.2 mg/dl (8.6-10.3); Creatinine Clr Calc Pharmacy 7.1 ml/min; Globulin 2.6 gm/dl (2.5-4.0); Total Protein 4.9 gm/dl (6.0-8.3)
[2024-01-28 06:30] LABS: Polychromasia 1+
[2024-01-28 06:53] LABS: Folate (Folic Acid),Ser orPlas > 22.30 ng/ml (>5.38)
[2024-01-28 06:54] LABS: Vitamin B12 > 1500 pg/ml (180-914)
--- NOTE | 2024-01-28 09:26 | XCELERA ---
[id number] \\[id number]
--- NOTE | 2024-01-28 10:34 | Nephrology Progress Note ---
Date of Service January 28, 2024 Assessment & Plan (1) ESRD (end stage renal disease): Plan: Attributed to DKD and hypertension. Maintained on PD but transitioned to HD perioperatively. Abdomen has been dry since Thursday. Drained to completion. Presentation is not consistent with PD peritonitis. Completed HD yesterday with adequate UF and clearance. Volume status acceptable. Will plan HD treatment tomorrow. AVF is working well with 16 g needles. Repeat a serum metabolic profile tomorrow AM. Medications are currently appropriately dosed for kidney function. (2) Cholecystitis: Plan: Started on Zosyn. Possible OR today. Plan to transition to HD perioperatively pending abdomen heals appropriately from surgery. (3) Hypertension: Plan: Volume status reasonably controlled. BP acceptable. (4) Anemia: Plan: Epogen 00467 units with HD yesterday. Denies melena or hematochezia. We were not able to return all blood with HD yesterday due to a clot in the venous chamber. Admission and Anticipated Discharge Date Admission Date: January 27, 2024 Subjective No acute events overnight. No fevers or chills. Margaux tolerated HD well yesterday. No complications with treatment. She continues to endorse some right upper quadrant abdominal pain. Review of Systems Review of Systems: All systems reviewed & are unremarkable except as noted in HPI & below Physical Exam Constitutional: well developed; no acute distress Eyes: + anicteric sclerae ENMT: Mouth: oral mucous membranes not dry Neck: normal visual inspection Respiratory: normal respiratory effort Auscultation: lungs clear to auscultation bilaterally Cardiovascular: Rate/Rhythm: regular rate Heart Sounds: normal S1 and normal S2 Extremities: + edema (dependent) Gastrointestinal (Abdomen): Inspection/Auscultation: abdomen normal to inspection Percussion/Palpation: + abdomen tender (mild RUQ discomfort ) and abdomen soft; no guarding and abdomen not rigid PD catheter with clean exit site. Dressing CDI. Musculoskeletal: Extremities: no cyanosis and no clubbing Skin: normal turgor; no lesions Neurologic: Motor/Sensory: no tremor and no asterixis Psychiatric: Orientation: alert and oriented x 3 Results & Data Vital Signs (Past 12 Hours) Vital Signs Temp Pulse Resp BP Pulse Ox O2 Del Method 01/28/24 07:28 37.5 C 77 16 121/70 94 Room Air 01/28/24 05:39 36.9 C 83 18 129/79 96 Room Air Laboratory Results Laboratory Results - last 24 hr 01/27/24 01/27/24 01/27/24 14:11 18:23 Unknown WBC RBC Hgb Hct MCV MCH MCHC RDW Std Deviation RDW Coeff of Poornima Plt Count MPV Immature Gran % (Auto) Neut % (Auto) Lymph % (Auto) [place] % (Auto) Eos % (Auto) Baso % (Auto) Neut # (Auto) Lymph # (Auto) [place] # (Auto) Eos # (Auto) Baso # (Auto) Immature Gran # (Auto) Polychromasia Sodium Potassium Chloride Carbon Dioxide Anion Gap BUN Creatinine Est Cr Clr Drug Dosing eGFR BUN/Creatinine Ratio Glucose POC Glucose 130 H 182 H Calcium Total Bilirubin AST ALT Alkaline Phosphatase Total Protein Albumin Globulin Albumin/Globulin Ratio Vitamin B12 Folate Urine Color Yellow Urine Appearance Cloudy A Urine pH 8.0 H Ur Specific [place] 1.014 Urine Protein 3+ H Urine Glucose (UA) Trace H Urine Ketones Trace H Urine Blood Trace H Urine Nitrite Negative Urine Bilirubin Negative Urine Urobilinogen Negative Ur Leukocyte Esterase 1+ H Urine WBC (Auto) 21-50 H Urine RBC (Auto) 6-10 H U Hyaline Cast (Auto) 0-2 U Epithel Cells (Auto) 6-10 H Urine Bacteria (Auto) 1+ H 01/28/24 01/28/24 01/28/24 00:08 05:26 05:50 WBC 14.57 H RBC 2.31 L Hgb 7.9 L Hct 24.3 L MCV 105.2 H MCH 34.2 H MCHC 32.5 RDW Std Deviation 50.6 H RDW Coeff of Poornima 13.2 Plt Count 198 MPV 10.9 Immature Gran % (Auto) 0.8 Neut % (Auto) 85.1 Lymph % (Auto) 7.0 [place] % (Auto) 6.7 Eos % (Auto) 0.1 Baso % (Auto) 0.3 Neut # (Auto) 12.40 H Lymph # (Auto) 1.02 L [place] # (Auto) 0.97 H Eos # (Auto) 0.01 Baso # (Auto) 0.05 Immature Gran # (Auto) 0.12 Polychromasia 1+ Sodium 138 Potassium 4.0 Chloride 100 Carbon Dioxide 29 Anion Gap 9 BUN 30 H Creatinine 6.67 H* D Est Cr Clr Drug Dosing 7.1 eGFR 6.03 BUN/Creatinine Ratio 4.5 L Glucose 122 H POC Glucose 140 H 144 H Calcium 8.2 L Total Bilirubin 0.7 AST 249 H ALT 197 H Alkaline Phosphatase 80 Total Protein 4.9 L D Albumin 2.3 L Globulin 2.6 Albumin/Globulin Ratio 0.9 Vitamin B12 > 1500 H Folate > 22.30 Urine Color Urine Appearance Urine pH Ur Specific [place] Urine Protein Urine Glucose (UA) Urine Ketones Urine Blood Urine Nitrite Urine Bilirubin Urine Urobilinogen Ur Leukocyte Esterase Urine WBC (Auto) Urine RBC (Auto) U Hyaline Cast (Auto) U Epithel Cells (Auto) Urine Bacteria (Auto) PG Care Time/CCT Total # of Minutes Spent Total Time Spent with Patient: Total time spent is greater than 50% in coordination of care (as documented) at patient's floor/unit and/or counseling patient: Coding Level of Care Code 36773 SUB INP/OBS CARE 3/50MIN Diagnoses ESRD (end stage renal disease) N18.6 Cholecystitis K81.9 Essential hypertension I10 Hypertension type: essential hypertension Anemia D64.9 (3) Hypertension Hypertension type: essential hypertension Qualified Code(s): I10 - Essential (primary) hypertension
--- NOTE | 2024-01-28 11:55 | Surgery Progress Note ---
Date of Service January 28, 2024 Assessment & Plan (1) Acute cholecystitis: Plan: Acute calculus cholecystitis in setting of end-stage renal disease and coronary stent placement in May. She has been deemed an acceptable risk for surgery after evaluation by cardiology. She has completed hemodialysis and is okay for surgery from nephrology standpoint. Discussed options to include surgery possibly today versus delaying surgery to allow for her Plavix to continue to clear her system. She now states that her last dose of Plavix was Thursday., Which was not our understanding. She understands that she has an increased risk for bleeding but desires to proceed with surgery. She again expressed her frustration with lack of communication regarding the surgery, for my apologies and informed her that we were making decisions this information became available and we will follow-up on discussion from yesterday. She also understands that she is at risk for peritoneal dialysis catheter infection plan for robotic assisted laparoscopic cholecystectomy with possible cholangiogram risks discussed to include but not limited to bleeding, infection, retained stone, bile leak, open surgery, damage to surrounding structures including bile duct, need for future or more extensive surgery, failure to treat symptoms, and risks of anesthesia. Continue to hold Plavix (2) CAD (coronary artery disease): (3) Heart failure with preserved ejection fraction: (4) ESRD (end stage renal disease): (5) Antiplatelet or antithrombotic long-term use: (6) Presence of drug-eluting stent in anterior descending branch of left coronary artery: (7) Obesity: Admission and Anticipated Discharge Date Admission Date: January 27, 2024 Subjective Patient admitted with cholecystitis in setting of end-stage renal disease and history of coronary stent placement in May. No events overnight, pain improving. Cardiology evaluated the patient last night, after echocardiogram and EKG this morning deemed she is an acceptable risk for surgery and may hold the Plavix. Received hemodialysis yesterday through her AV fistula, okay for surgery from nephrology standpoint. Patient expressed frustration with lack of communication from our standpoint. Physical Exam Constitutional: WD/WN, vitals as above + obese Eyes: + anicteric sclerae ENMT: Ears: no hearing impairment and no external ear abnormality Mouth: no oropharynx abnormality Neck: trachea midline Respiratory: normal respiratory effort; no respiratory distress and no labored breathing Cardiovascular: Rate/Rhythm: regular rate and regular rhythm Gastrointestinal (Abdomen): Abdomen is soft and nondistended. Patient had a pre-existing peritoneal dialysis catheter in place. Patient had pain with palpation in the right upper quadrant. Musculoskeletal: No calf tenderness Skin: no rashes Neurologic: moves all extremities Psychiatric: A+Ox3, euthymic affect Results & Data Vital Signs (Past 12 Hours) Vital Signs Temp Pulse Resp BP Pulse Ox O2 Del Method 01/28/24 07:28 37.5 C 77 16 121/70 94 Room Air 01/28/24 05:39 36.9 C 83 18 129/79 96 Room Air Laboratory Results Laboratory Results - last 24 hr 01/27/24 01/27/24 01/28/24 14:11 18:23 00:08 WBC RBC Hgb Hct MCV MCH MCHC RDW Std Deviation RDW Coeff of Poornima Plt Count MPV Immature Gran % (Auto) Neut % (Auto) Lymph % (Auto) [place] % (Auto) Eos % (Auto) Baso % (Auto) Neut # (Auto) Lymph # (Auto) [place] # (Auto) Eos # (Auto) Baso # (Auto) Immature Gran # (Auto) Polychromasia Sodium Potassium Chloride Carbon Dioxide Anion Gap BUN Creatinine Est Cr Clr Drug Dosing eGFR BUN/Creatinine Ratio Glucose POC Glucose 130 H 182 H 140 H Calcium Total Bilirubin AST ALT Alkaline Phosphatase Total Protein Albumin Globulin Albumin/Globulin Ratio Vitamin B12 Folate 01/28/24 01/28/24 05:26 05:50 WBC 14.57 H RBC 2.31 L Hgb 7.9 L Hct 24.3 L MCV 105.2 H MCH 34.2 H MCHC 32.5 RDW Std Deviation 50.6 H RDW Coeff of Poornima 13.2 Plt Count 198 MPV 10.9 Immature Gran % (Auto) 0.8 Neut % (Auto) 85.1 Lymph % (Auto) 7.0 [place] % (Auto) 6.7 Eos % (Auto) 0.1 Baso % (Auto) 0.3 Neut # (Auto) 12.40 H Lymph # (Auto) 1.02 L [place] # (Auto) 0.97 H Eos # (Auto) 0.01 Baso # (Auto) 0.05 Immature Gran # (Auto) 0.12 Polychromasia 1+ Sodium 138 Potassium 4.0 Chloride 100 Carbon Dioxide 29 Anion Gap 9 BUN 30 H Creatinine 6.67 H* D Est Cr Clr Drug Dosing 7.1 eGFR 6.03 BUN/Creatinine Ratio 4.5 L Glucose 122 H POC Glucose 144 H Calcium 8.2 L Total Bilirubin 0.7 AST 249 H ALT 197 H Alkaline Phosphatase 80 Total Protein 4.9 L D Albumin 2.3 L Globulin 2.6 Albumin/Globulin Ratio 0.9 Vitamin B12 > 1500 H Folate > 22.30 PG Care Time/CCT Total # of Minutes Spent Total Time Spent with Patient: Total time spent is greater than 50% in coordination of care (as documented) at patient's floor/unit and/or counseling patient: Coding Level of Care Code 43455 SUB INP/OBS CARE 2/35MIN Diagnoses Acute cholecystitis K81.0 CAD (coronary artery disease) I25.10 Heart failure with preserved ejection fraction I50.30 ESRD (end stage renal disease) N18.6 Antiplatelet or antithrombotic long-term use Z79.02 Presence of drug-eluting stent in anterior descending branch of left coronary artery Z95.5 Class 1 obesity due to excess calories with serious comorbidity in adult, unspecified BMI E66.09 Obesity type: due to excess calories Obesity classification: adult class 1 (BMI 30 - 34.9) Serious obesity comorbidity presence: with serious comorbidity Body mass index: unspecified BMI (7) Obesity Obesity type: due to excess calories Obesity classification: adult class 1 (BMI 30 - 34.9) Serious obesity comorbidity presence: with serious comorbidity Body mass index: unspecified BMI Qualified Code(s): E66.09 - Other obesity due to excess calories
[2024-01-28] MEDS ORDERED: ROCURONIUM BROMIDE 10 MG/ML 5 ML VIAL IV ONE (12:49)
[2024-01-28] MEDS ORDERED: ONDANSETRON INJ 2 MG/ML 2 ML VIAL ONE (12:49)
[2024-01-28] MEDS ORDERED: PROPOFOL IV EMULSION 10 MG/ML 20 ML VIAL IV ONE (12:49)
[2024-01-28] MEDS ORDERED: LIDOCAINE 2% 2 ML VIAL/AMP(20MG/ML) INFIL ONE (12:49)
[2024-01-28] MEDS ORDERED: fentaNYL citrate PF 100 MCG/2 ML VIAL ONE (12:49)
[2024-01-28] MEDS ORDERED: MIDAZOLAM HCL 1 MG/ML 2ML VIAL ONE (12:49)
[2024-01-28] MEDS ORDERED: DEXAMETHASONE SOD INJ 4 MG/ML VIAL ONE (12:49)
--- NOTE | 2024-01-28 13:10 | Anesthesiology Consultation ---
Date of Service January 28, 2024 Assessment & Plan (1) Encounter for pre-operative examination: Chart Review Chart Review: Acceptable Risk for Surgery History Surgery Operation Date: 01/28/24 07:00 Proposed Procedures p Robotic Laparoscopic Cholecystectomy - Oseas Madrigal DO, FACS Height/Weight Height: 5 ft 4 in Weight: 73 kg Allergies Allergy/AdvReac Type Severity Reaction Status Date / Time insect venom Allergy Intermediate Swelling Verified 12/23/23 13:58 adhesive tape Allergy Mild Rash Verified 12/23/23 13:58 [facility] AdvReac Mild Constipation, Verified 12/23/23 13:58 vomiting Medications Home Medications Medication Instructions Recorded Confirmed Last Taken lancets (Accu-Chek Fastclix Lancet #50 ea 12/16/18 12/23/23 Unknown Drum) aspirin 81 mg chewable tablet 81 mg PO QAM 11/07/19 01/27/24 1 Day Ago ~01/26/24 mecobalamin (vitamin B12) 1,000 1,000 mcg PO QAM 09/13/20 01/27/24 06/19/23 mcg chewable tablet (B12 Active) blood sugar diagnostic (Accu-Chek 10/15/21 12/23/23 Unknown SmartView Test Strips) cholecalciferol (vitamin D3) 62.5 62.5 mcg PO HS 06/06/22 12/23/23 1 Day Ago mcg (2,500 unit) capsule ~01/26/24 insulin aspart U-100 100 unit/mL 14 unit subcut TIDWMEAL PRN bg 03/10/23 01/27/24 1 Day Ago (3 mL) subcutaneous pen (Novolog LEVELS ~01/26/24 FlexPen U-100 Insulin aspart) Walking Cane #1 ea 06/30/23 12/23/23 Unknown triamcinolone acetonide 0.1 % 1 applic topical BID PRN Anxiety 07/28/23 01/27/24 01/26/24 topical ointment clopidogrel 75 mg tablet 75 mg PO QAM #90 tabs 08/18/23 01/27/24 01/26/24 pen needle, diabetic 32 gauge x #100 ea 08/24/23 12/23/23 Unknown 5/32" (BD Nicki 2nd Gen Pen Needle) buspirone 7.5 mg tablet 7.5 mg PO DAILY PRN anxiety #90 09/04/23 01/27/24 Unknown tabs furosemide 40 mg tablet 80 mg PO QAM 09/08/23 01/27/24 01/26/24 sucroferric oxyhydroxide 500 mg 500 mg PO TID #90 tabs 11/19/23 01/27/24 01/20/24 chewable tablet (Velphoro) insulin degludec 100 unit/mL (3 18 unit (0.18 mL) subcut DAILY BG 12/14/23 01/27/24 01/26/24 mL) subcutaneous pen (Tresiba levels 90 days #16.2 mL FlexTouch U-100 insulin) vitamin B complex and vitamin C 1 cap PO QAM #90 caps 12/15/23 01/27/24 1 Day Ago no.20-folic acid 1 mg capsule ~01/26/24 (Renal Caps) metoprolol succinate 50 mg 50 mg PO QAM #90 tabs 12/23/23 01/27/24 01/26/24 tablet,extended release 24 hr potassium chloride 10 mEq 20 meq (2 x 10 mEq) PO BID #120 12/31/23 01/27/24 01/27/24 tablet,extended release tabs blood-glucose sensor (FreeStyle #2 ea 01/27/24 Unknown Kvng 3 Plus Sensor device) rosuvastatin 40 mg tablet 40 mg PO PM 01/27/24 01/27/24 01/26/24 21:00 Active Medications Generic Name Dose Route Start Last Admin Trade Name Freq PRN Reason Stop Dose Admin Furosemide 80 mg 01/27/24 09:56 01/27/24 14:47 Furosemide 80 Mg Tab PO 02/26/24 09:55 Not Given BID17 EARNESTINE Piperacillin Sod/Tazobactam Sod 4.5 gm in 100 mls @ 25 mls/hr 01/27/24 14:00 01/28/24 07:27 Zosyn IV 02/06/24 13:59 Infused Q12H EARNESTINE Infusion Insulin Aspart 0 units 01/27/24 18:00 01/28/24 12:37 Insulin Aspart Per Unit Charge SC 02/26/24 17:59 Not Given Q6 EARNESTINE Insulin Glargine 7 units 01/27/24 21:00 01/27/24 21:34 Lantus Per Unit Charge SQ 02/26/24 20:59 7 units HS EARNESTINE Administration Metoprolol Succinate 25 mg 01/27/24 15:00 01/27/24 15:27 Metoprolol Succ 25mg Ext Rel Tab PO 02/26/24 14:59 25 mg QAM EARNESTINE Administration Morphine Sulfate 4 mg 01/27/24 09:56 01/27/24 21:30 Morphine Sulfate 4 Mg/Ml 1 Ml Carp\\Vial IV 02/10/24 09:55 4 mg Q3H PRN Administration Pain (6,7,8,9,10) Rosuvastatin Calcium 40 mg 01/27/24 21:00 01/27/24 21:29 Rosuvastatin Calcium 20 Mg Tab PO 02/26/24 20:59 40 mg PM EARNESTINE Administration Past Medical History Medical History Non-ST elevation [place] (NSTEMI) Anemia Pulmonary edema 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 Metabolic acidosis Stage 5 chronic kidney disease not on chronic dialysis AV fistula right arm--per pt not currently using yet Periodontal pocket Carious teeth Anemia due to chronic kidney disease Sleep apnea Per 2009 polysomnography (per 02/2021 pulmonology note)- pt declined treatment or repeat study-NO DEVICE Diastolic CHF Chronic kidney disease, stage 4 (severe) Secondary hyperparathyroidism of renal origin History of DVT (deep vein thrombosis) Multiple "small" DVTs (25+ years ago, 6 years ago) Fibroids History of hypothyroidism HX-NO MEDS Sensorineural hearing loss (SNHL) of both ears Family history of colon cancer in mother Past Family History Family History Mother Diabetes Renal cell cancer Heart disease Colorectal cancer Hypertension Brother Diabetes Renal cell cancer Heart disease Lung cancer Hypertension Gallbladder disease Father Prostate cancer Heart disease Hypertension Grandmother (Maternal) Colorectal cancer Aunt Diabetes Other Alzheimer disease No family history of adverse response to anesthesia Denies family history of Ovarian cancer Myocardial infarction Breast cancer Past Surgical History Surgical History History of coronary artery stent placement S/P arteriovenous (AV) fistula creation RIGHT arm 03/27/21 @ [facility] Dr. Subramanian History of dental surgery History of surgery on arm Right Arm basilic vein transposition 2nd stage @ [facility] Dr. Subramanian 06/10/21 History of colonoscopy Social History Smoking Status: Never smoker Do You Dip or Chew Tobacco: No Hx Alcohol Use: Yes Alcohol type: wine alcohol intake frequency: holidays/special occasions only Hx Substance Use: No substance use type: does not use Physical Exam Vital Signs Last Vital Signs Temp 37.6 C H 01/28/24 12:11 Pulse 90 01/28/24 12:11 Resp 18 01/28/24 12:11 BP 122/69 01/28/24 12:11 Pulse Ox 95 01/28/24 12:11 O2 Del Method Room Air 01/28/24 12:11 O2 Flow Rate 2.0 01/27/24 13:41 Testing Laboratory Results 01/28/24 05:26 01/28/24 05:26 PT 10.9 Seconds (9.0-12.0) 01/27/24 04:40 INR 1.0 (0.9-1.1) 01/27/24 04:40 APTT 23 Seconds (21-31) 01/27/24 04:40 Urine Color Yellow 01/27/24 Unknown Urine Appearance Cloudy (Clear) A 01/27/24 Unknown Urine pH 8.0 (4.5-7.5) H 01/27/24 Unknown Ur Specific [place] 1.014 (1.000-1.030) 01/27/24 Unknown Urine Protein 3+ (Negative) H 01/27/24 Unknown Urine Glucose (UA) Trace (Negative) H 01/27/24 Unknown Urine Ketones Trace (Negative) H 01/27/24 Unknown Urine Nitrite Negative (Negative) 01/27/24 Unknown Ur Leukocyte Esterase 1+ (Negative) H 01/27/24 Unknown Urine WBC (Auto) 21-50 /hpf (0-5) H 01/27/24 Unknown Urine RBC (Auto) 6-10 /hpf (0-2) H 01/27/24 Unknown U Hyaline Cast (Auto) 0-2 /lpf (0-2) 01/27/24 Unknown U Epithel Cells (Auto) 6-10 /hpf (0-2) H 01/27/24 Unknown Urine Bacteria (Auto) 1+ (None Seen) H 01/27/24 Unknown 01/27/24 Unknown Urine Culture - Final Urine,Clean Catch Three types of organisms present, all high counts probable skin linda. No further identifications or sensitivities to follow. 01/27/24 07:02 Aerobic Blood Culture - Preliminary Blood No growth in Aerobic bottle after 24 hours. Anaerobic Blood Culture - Preliminary No growth in Anaerobic bottle after 24 hours. 01/28/24 01/28/24 12:10 05:50 POC Glucose 100 H 144 H Electrocardiogram Date: 01/27/24 Findings: + NSR @ (77) and + NSST changes prolonged QT Echocardiogram Date: 06/23/23 EF: 55-60 LV Function: normal Other Findings: + LVH Valvular Disease: + MS (borderline mild ) Cardiac Catheterization Date: 06/23/23 Intervention: + PCI and + LIBRA placed (mid LAD) multivessel CAD - RCA occluded - has collaterals
[2024-01-28] MEDS ORDERED: PROMETHAZINE HCL 6.25 MG in SODIUM CHLORIDE 0.9% 50 ML IV PRN (13:19)
[2024-01-28] MEDS ORDERED: fentaNYL citrate PF 100 MCG/2 ML VIAL IV PRN (13:19)
[2024-01-28] MEDS ORDERED: ATROPINE SULFATE 0.1 MG/ML 10ML SYR IV PRN (13:19)
[2024-01-28] MEDS: SODIUM CHLORIDE 0.9% 1,000 ML IV SCH ×2 (13:21→18:29)
[2024-01-28] MEDS: INDOCYANINE GREEN 25 MG VIAL INJ ONE (13:21)
[2024-01-28] MEDS ORDERED: ACETAMINOPHEN 1000 MG/100 ML IV IV ONE (14:29)
[2024-01-28] MEDS ORDERED: SUGAMMADEX SODIUM 200 MG/2 ML VIAL IV ONE ×2 (15:51→16:40)
--- NOTE | 2024-01-28 16:30 | Electrocardiogram Report ---
Test Reason : Blood Pressure : */* mmHG Vent. Rate : 77 BPM Atrial Rate : 77 BPM P-R Int : 126 ms QRS Dur : 88 ms QT Int : 450 ms P-R-T Axes : 2 -12 88 degrees QTcB Int : 509 ms Sinus rhythm with Premature atrial complexes Poor R wave progression, consider anterior DC vs. lead placement vs. LVH Prolonged QT Abnormal ECG No previous ECGs available Confirmed by Jeyson Walton ([id number]) on 01/28/2024 4:30:20 PM Referred By: REFERRED SELF Confirmed By: Jeyson Walton
--- NOTE | 2024-01-28 16:32 | Post Operative Brief Note ---
PG Immediate Post Op with CF Date of Surgery January 28, 2024 Pre & Post Diagnosis Operation Date: 01/28/24 07:00 Pre-Op Diagnosis: acute cholecystitis Post-Op Diagnosis: gangranous cholecystitis I identified the patient and participated in the time-out.: Yes Procedure Operation Date: 01/28/24 07:00 Actual Procedures p Robotic Laparoscopic Cholecystectomy(Not Applicable) - Oseas Madrigal DO, BETHANY Surgeon Oseas Madrigal DO, FACS Tobacco Sorter [place] Estimated Blood Loss 25 Findings Consistent with Post-Op Diagnosis Gangrenous cholecystitis. Gallbladder decompressed with aspiration needle. Critical view of safety obtained, cystic duct and artery doubly clipped and divided. Good hemostasis at liver bed. Gallbladder extracted through left upper quadrant port, extended for several centimeters to accommodate gallbladder. There was some spillage of stones within the incision but these were all retrieved. Wound irrigated. Specimens Specimen Description: 1. Gallbladder Anesthesia Type General Complications none Disposition Accompanied Patient To Recovery: No Disposition: Recovery Room
[2024-01-28] MEDS: BUPIVACAINE 0.5 % 5 MG/1 ML MPF 30ML VIAL ONE (16:33)
--- NOTE | 2024-01-28 16:47 | Operative Report ---
PG Post Operative Report Pre & Post Diagnosis Operation Date: 01/28/24 07:00 Pre-Op Diagnosis: acute cholecystitis Post-Op Diagnosis: gangranous cholecystitis I identified the patient and participated in the time-out.: Yes Procedure Operation Date: 01/28/24 07:00 Actual Procedures p Robotic Laparoscopic Cholecystectomy(Not Applicable) - Oseas Madrigal DO, BETHANY Surgeon Oseas Madrigal DO, FACS Retirement Actuary [place] Estimated Blood Loss 25 Findings Consistent with Post-Op Diagnosis Gangrenous cholecystitis. Gallbladder decompressed with aspiration needle. Critical view of safety obtained, cystic duct and artery doubly clipped and divided. Good hemostasis at liver bed. Gallbladder extracted through left upper quadrant port, extended for several centimeters to accommodate gallbladde r. There was some spillage of stones within the incision but these were all retrieved. Wound irrigated. Specimens Gallbladder Anesthesia Type General Complications none Disposition Accompanied Patient To Recovery: No Disposition: Recovery Room Indications 73-year-old female with end-stage renal disease on peritoneal dialysis and coronary artery disease presented with cholelithiasis with acute cholecystitis, plan for robotic cholecystectomy. The risks of the procedure were discussed, all questions were answered, and the patient agreed to proceed with surgery as planned. Description of Procedure The patient was properly identified, consented, and taken to the operating room where she was placed in the supine position. 2.5 mg of indocyanine green were administered IV approximately 45 min prior to the surgery. General endotracheal anesthesia was induced. SCDs and a safety belt were placed. Preoperative antibiotics were administered. The patient's abdomen was prepped and draped in the standard sterile fashion. The peritoneal dialysis catheter was covered with gauze and an OpSite dressing. A surgical timeout was performed and all parties were in agreement that this was the correct patient and procedure to be performed and we continued as planned. An incision was made just above the umbilicus and to the right of midline. Veress needle was inserted and saline drop test confirmed entry to the abdomen. The abdomen was insufflated with carbon dioxide which the patient tolerated incident. Veress needle was removed and the abdomen is entered using the Optiview technique and a 5 mm camera. The introducer was removed and the abdomen inspected. No damage from initial trocar placement or Veress needle placement was identified. There were no significant abnormalities to the 4 quadrants of the abdomen. 8 mm robotic ports were then placed on the left and right. An additional 5 mm delivery driver assistant port was placed in the lateral right subcostal position. The patient was placed in reverse Trendelenburg position and rotated towards the left. The robot was then docked and the camera and robotic instruments were inserted. The gallbladder was gangrenous and very distended. This was aspirated with a laparoscopic needle to allow for retraction. The dome of the gallbladder was grasped by the delivery driver assistant and retracted towards the left upper quadrant and the infundibulum was retracted toward the right lower quadrant revealing Calot's triangle. Peritoneal attachments were taken down with electrocautery and blunt dissection. The cystic duct and artery were circumferentially dissected. A window of safety was obtained showing the cystic duct entering the gallbladder with no aberrant structures noted. We were unable to identify the cystic duct utilizing the ICG due to the patient's cholecystitis. We did visualize a small portion of the common bile duct deep to the cystic duct.. The cystic duct and artery were doubly clipped and divided. The gallbladder was then lifted off the gallbladder fossa with electrocautery. The right upper quadrant was irrigated and hemostasis was found to be good. The gallbladder was placed in an Endo Catch bag and removed through the one of the port sites. This port site needed to be extended for several centimeters both in the skin and fascia to accommodat e the gallbladder. There was some spillage of bile and stones during this portion of the procedure. These were all retrieved within the wound. The instruments were removed and the robot was undocked. The fascia of the extraction site was closed with interrupted [id number] Vicryl sutures. The wound was copiously irrigated and local anesthetic was injected. We then reentered laparoscopically and identified a few stones that spilled back into the abdomen. These were retrieved with a grasper and with suction. The right upper quadrant was reexamined and there was a small amount of clot formed but there was no active bleeding. The trochars were removed and the abdomen was allowed to collapse. The skin of all ports was closed with 4-0 Monocryl subcuticular sutures. Dermabond was placed over the wounds. The patient was extubated in the operating room and taken to the PACU where she recovered without apparent incident. All sponge, instrument and needle counts were correct at the conclusion of the procedure. The patient tolerated the procedure well. The physician's delivery driver assistant was present and scrubbed for the entirety of the case and was essential in positioning the patient, prepping and draping, retraction and exposure, driving the laparoscope, exchange of the robotic instruments removal of the gallbladder, closure of the incisions, and placement of the dressings. I attest to the content of the Intraoperative Record and any orders documented therein. Any exceptions are noted below.
--- NOTE | 2024-01-28 18:11 | Anesthesiology Progress Note ---
Date of Service January 28, 2024 Anesthesia Post Procedure Vital Signs Vital Signs: Temp Pulse Pulse Resp BP Pulse Ox O2 Del Method 01/28/24 17:50 78 13 123/50 L 93 Room Air 01/28/24 17:40 37 C 79 18 128/54 L 98 Room Air 01/28/24 17:30 78 20 130/54 L 98 Nasal Cannula 01/28/24 17:20 80 22 133/58 L 100 Nasal Cannula 01/28/24 17:10 37 C 80 20 118/54 L 93 Room Air 01/28/24 17:00 80 18 135/58 L 100 Oxymask 01/28/24 16:48 36 C L 78 12 128/60 100 Oxymask 01/28/24 13:10 37.6 C H 91 H 20 132/64 95 Room Air 01/28/24 12:11 37.6 C H 90 18 122/69 95 Room Air 01/28/24 10:45 Room Air 01/28/24 07:28 37.5 C 77 16 121/70 94 Room Air 01/28/24 05:39 36.9 C 83 18 129/79 96 Room Air 01/27/24 21:30 Room Air 01/27/24 20:17 36.6 C 76 18 150/80 H 99 Room Air O2 Flow Rate 01/28/24 17:50 01/28/24 17:40 01/28/24 17:30 2 01/28/24 17:20 2 01/28/24 17:10 01/28/24 17:00 3 01/28/24 16:48 6 01/28/24 13:10 01/28/24 12:11 01/28/24 10:45 01/28/24 07:28 01/28/24 05:39 01/27/24 21:30 01/27/24 20:17 Pain Intensity Abdomen: Pain Intensity: 8 Transfer of Care Handoff Completed per policy Notes Mental Status: alert / awake / arousable Patient Amnestic to Procedure: Yes Nausea / Vomiting: adequately controlled Pain: adequately controlled Airway Patency, RR, SpO2: stable & adequate BP & HR: stable & adequate Hydration State: stable & adequate Anesthetic Complications: no major complications apparent
[2024-01-28] MEDS ORDERED: oxyCODONE HCL IR 5 MG TAB (IMMEDIATE RELEASE) PO PRN ×2 (18:22)
[2024-01-28] MEDS ORDERED: Nursing to Pharmacy Communication SCH (18:45)
--- NOTE | 2024-01-28 18:46 | Hospitalist Progress Note ---
Date of Service January 28, 2024 Assessment & Plan (1) Acute cholecystitis: Plan: 73yo female with history of CAD with recent LIBRA stent placement to mid-LAD in May 2023, ESRD on PD and DM presenting with RUQ abdominal pain, subjective fever/chills and nausea/vomiting. Patient found to have acute cholecystitis. Labs are significant for leukocytosis with WBC=11.47 with neutrophil predominance. LFTs and Lipase are WNL. CT as above with marked cholelithiasis with gallbladder distention and wall thickening. No ductal dilatation -Admit to medical -Keep patient NPO -Zosyn 4.5gm IV BID dosed for renal function -Morphine PRN pain -Zofran PRN nausea -Tylenol as needed for pain or fever -Gallbladder ultrasound ordered -Appreciate General Surgery assistance -Will hold Plavix. Continue ASA 81mg po daily - patient with LIBRA placed to mid- LAD on 06/23/23 Surgery on 01/27 (2) CAD (coronary artery disease): Plan: Patient denies chest pain. She has CAD with stent placement. Follows with Dr. Kumar -Continue ASA 81mg daily -Continue Metoprolol 50mg po qAM -Continue Crestor 40mg po qPM -Hold Plavix (3) ESRD (end stage renal disease): Plan: Patient with ESRD on PD. She follows with Dr. Wing -Nephrology consultation appreciated -Avoid nephrotoxic agents -Renal dosing where needed Plan Chronic Medical Conditions: Anxiety - -Continue Buspirone PRN CHF - patient appears euvolemic -Continue Lasix 80mg po BID17 -Continue Metoprolol Diabetes -Lantus 7u BID with ISS -Goal blood sugar 110 - 140 F/E/N - Saline lock. Electrolytes WNL. NPO for now Ppx - SCDs to bilateral LE Code - Full per discussion with patient Dispo - Admit to medical Admission and Anticipated Discharge Date Admission Date: January 27, 2024 Subjective 73 yo female seen after surgery and resting. Review of Systems Review of Systems: All systems reviewed & are unremarkable except as noted in HPI & below Physical Exam Physical Exam: General: patient resting comfortably, NAD Skin: warm, dry, intact, no rashes or lesions HEENT: NC/AT Heart: +S1/S2, regular with ectopy, no m/r/g Lungs: equal air entry bilaterally, no rales/rhonchi/wheezes Ext: warm, 2+ pulses in UE/LE bilaterally, no clubbing/cyanosis, trace bilateral LE edema Neuro: nonfocal, patient AA&O x 4 Results & Data Results & Data Vital Signs (Past 12 Hours) Vital Signs Temp Pulse Pulse Resp BP Pulse Ox O2 Del Method 01/28/24 18:23 36.5 C 75 16 132/73 100 Nasal Cannula 01/28/24 18:00 77 20 124/60 95 Room Air 01/28/24 17:50 78 13 123/50 L 93 Room Air 01/28/24 17:40 37 C 79 18 128/54 L 98 Room Air 01/28/24 17:30 78 20 130/54 L 98 Nasal Cannula 01/28/24 17:20 80 22 133/58 L 100 Nasal Cannula 01/28/24 17:10 37 C 80 20 118/54 L 93 Room Air 01/28/24 17:00 80 18 135/58 L 100 Oxymask 01/28/24 16:48 36 C L 78 12 128/60 100 Oxymask 01/28/24 13:10 37.6 C H 91 H 20 132/64 95 Room Air 01/28/24 12:11 37.6 C H 90 18 122/69 95 Room Air 01/28/24 10:45 Room Air 01/28/24 07:28 37.5 C 77 16 121/70 94 Room Air O2 Flow Rate 01/28/24 18:23 1 01/28/24 18:00 01/28/24 17:50 01/28/24 17:40 01/28/24 17:30 2 01/28/24 17:20 2 01/28/24 17:10 01/28/24 17:00 3 01/28/24 16:48 6 01/28/24 13:10 01/28/24 12:11 01/28/24 10:45 01/28/24 07:28 PG Care Time/CCT Total # of Minutes Spent Total Time Spent with Patient: Total time spent is greater than 50% in coordination of care (as documented) at patient's floor/unit and/or counseling patient: Coding Level of Care Code 43734 SUB INP/OBS CARE 2/35MIN Diagnoses Acute cholecystitis K81.0 CAD (coronary artery disease) I25.10 ESRD (end stage renal disease) N18.6
[2024-01-28] MEDS: INSULIN ASPART PER UNIT CHARGE SC SCH (21:47)
[2024-01-29] MEDS: MoRPHine SULFATE 2 MG/ML CARP IV PRN (02:47)
[2024-01-29 06:16] LABS: Basophils # (auto) 0.03 K/uL (0.00-0.20); Basophils % (auto) 0.3 %; Eosinophils # (auto) 0.06 K/uL (0.00-0.50); Eosinophils % (auto) 0.5 %; Hematocrit (blood only) 22.3 % (37.0-47.0); Hemoglobin 7.2 g/dl (12.0-16.0); Immature Granulocytes # (auto) 0.06 K/uL (0.01-0.20); Immature Granulocytes % (auto) 0.5 %; Lymphocytes # (auto) 1.11 K/uL (1.20-3.40); Lymphocytes % (auto) 9.4 %; Mean Corpuscular Hgb Conc 32.3 g/dL (32.0-36.0); Mean Corpuscular Volume 105.2 fL (80.0-100.0); Mean Platelet Volume 10.7 fL (9.4-12.4); Monocytes # (auto) 0.64 K/uL (0.11-0.59); Monocytes % (auto) 5.4 %; Neutrophils # (auto) 9.91 K/uL (1.40-6.50); Neutrophils % (auto) 83.9 %; Platelet Count 193 K/uL (130-400); RDW Coefficient of Variation 13.3 % (11.5-14.5); Red Blood Count 2.12 M/uL (4.20-5.40); White Blood Count 11.81 K/ul (4.8-10.8)
[2024-01-29 06:39] LABS: Albumin Globulin Ratio 0.8 (0.9-2); Albumin Level 2.1 gm/dl (3.4-5.0); BUN Creatinine Ratio 5.4 (10-20); Bilirubin Direct 0.2 mg/dl (0-0.2); Bilirubin,Total 0.5 mg/dl (0.2-1.0); Calcium 7.7 mg/dl (8.6-10.3); Creatinine Clr Calc Pharmacy 6.1 ml/min; Globulin 2.5 gm/dl (2.5-4.0); Phosphorus 7.1 mg/dl (2.5-4.9); Total Protein 4.6 gm/dl (6.0-8.3)
[2024-01-29 06:50] LABS: Polychromasia 1+
--- NOTE | 2024-01-29 08:59 | Surgery Progress Note ---
Date of Service January 29, 2024 Assessment & Plan (1) Acute cholecystitis: Plan: POD 1 lap cj expected post surgical discomfort no n/v VSS T bili wnl continue IV antibiotics post operatively today , should be on 7 day course may switch to PO tomorrow adv. NEHEMIAS port sites CDI no s/s infection noted may restart Plavix tomorrow 01/30/24 if H/H is stable No PD for [address] Hurtado Admission and Anticipated Discharge Date Admission Date: January 27, 2024 Supervising Physician Co-Signing Physician Notes Patient seen examined, labs reviewed, agree with above. POD #1 robotic cholecystectomy for gangrenous cholecystitis. Was seen in dialysis, feels much better than prior to surgery. She is afebrile stable vitals. Abdomen is soft, appropriately tender to palpation, incisions with Dermabond no evidence of infection. WBC 11.8, LFT stable with normal bilirubin. H&H 7.2/22.3, stable from yesterday, chronic anemia. Okay to advance diet, continue antibiotics for 7 days postop to protect peritoneal dialysis catheter. Okay from general surgery standpoint to discharge if stable tomorrow. May restart Plavix tomorrow. Wound care instructions and activity restrictions reviewed. Follow- up with me in 2 weeks. Will need hemodialysis for 2 weeks and then may resume peritoneal dialysis if everything is healing well. Return precautions given, call with questions or concerns. Dr. Gonzalez covering over the weekend Subjective pt reports doing well mild abd discomfort tolerating clears , advancing for breakfast Review of Systems Respiratory: no dyspnea Gastrointestinal: no abdominal pain, no nausea and no vomiting Physical Exam Constitutional: cooperative and comfortable; no acute distress Respiratory: normal respiratory effort; no respiratory distress Cardiovascular: Rate/Rhythm: regular rate Gastrointestinal (Abdomen): Inspection/Auscultation: + abdominal surgical incision (CDI dermabond); abdomen not distended Percussion/Palpation: abdomen soft Results & Data Vital Signs (Past 12 Hours) Vital Signs Temp Pulse Resp BP Pulse Ox O2 Del Method O2 Flow Rate 01/29/24 07:01 98.1 F 86 17 164/74 H 96 Room Air 01/29/24 02:43 98.1 F 76 18 132/78 99 Nasal Cannula 01/28/24 21:45 Nasal Cannula 1 01/28/24 21:05 98.2 F 74 17 128/76 99 Nasal Cannula 1 PG Care Time/CCT Total # of Minutes Spent Total Time Spent with Patient: Total time spent is greater than 50% in coordination of care (as documented) at patient's floor/unit and/or counseling patient: Coding Level of Care Code 74939 Post Operative Follow-Up Diagnoses Acute cholecystitis K81.0
--- NOTE | 2024-01-29 09:30 | Nephrology Progress Note ---
Date of Service January 29, 2024 Assessment & Plan (1) ESRD (end stage renal disease): Plan: Attributed to DKD and hypertension. Maintained on PD --> transitioned to HD perioperatively. Orders for HD today were entered into the EHR and reviewed with the fac engineer. Margaux was seen and evaluated during treatment. small infiltration during initial needle placement but AVF is now functioning well. Qb acceptable. Surgery was able to be completed yesterday without compromising the PD catheter. Once abdomen has adequately healed, we can transition back to PD. [facility] is aware that the patient will require a chair for IHD. They plan to follow up with the patient to review logistics. Karis will provide her own transportation. Medications are currently appropriately dosed for kidney function. (2) Cholecystitis: Plan: POD#1 s/p lap cj. Tolerated surgery well. Diet is being advanced. Remains on Zosyn. (3) Hypertension: Plan: BP acceptable. UF with HD as tolerated. Resume furosemide (4) Anemia: Plan: Epogen 60932 units with HD Thursday. Additional 59106 units today. Iron replete. Continue to monitor H/H pre-HD. Admission and Anticipated Discharge Date Admission Date: January 27, 2024 Subjective No acute events overnight. Margaux was seen and evaluated during HD this AM. She is tolerating treatment well. Qb acceptable. Arterial needle repositioned during treatment. Small infiltration during initial needle placement. Qb 300. Karis tolerated surgery well. Her diet is being advanced. She denies significant pain. Overall, she reports improvement in abdominal discomfort. Review of Systems Review of Systems: All systems reviewed & are unremarkable except as noted in HPI & below Physical Exam Constitutional: well developed; no acute distress Eyes: + anicteric sclerae Neck: normal visual inspection and trachea midline Respiratory: normal respiratory effort Auscultation: lungs clear to auscultation bilaterally Cardiovascular: Rate/Rhythm: regular rate Heart Sounds: normal S1 and normal S2 Extremities: + edema Musculoskeletal: Extremities: no cyanosis and no clubbing Skin: normal turgor; no lesions Neurologic: Motor/Sensory: no tremor and no asterixis Psychiatric: Orientation: alert and oriented x 3 Results & Data Vital Signs (Past 12 Hours) Vital Signs Temp Pulse Resp BP Pulse Ox O2 Del Method O2 Flow Rate 01/29/24 07:01 36.7 C 86 17 164/74 H 96 Room Air 01/29/24 02:43 36.7 C 76 18 132/78 99 Nasal Cannula 01/28/24 21:45 Nasal Cannula 1 Laboratory Results Laboratory Results - last 24 hr 01/28/24 01/28/24 01/28/24 12:10 16:48 18:38 WBC RBC Hgb Hct MCV MCH MCHC RDW Std Deviation RDW Coeff of Poornima Plt Count MPV Immature Gran % (Auto) Neut % (Auto) Lymph % (Auto) [place] % (Auto) Eos % (Auto) Baso % (Auto) Neut # (Auto) Lymph # (Auto) [place] # (Auto) Eos # (Auto) Baso # (Auto) Immature Gran # (Auto) Polychromasia Sodium Potassium Chloride Carbon Dioxide Anion Gap BUN Creatinine Est Cr Clr Drug Dosing eGFR BUN/Creatinine Ratio Glucose POC Glucose 100 H 107 H 118 H Calcium Phosphorus Iron TIBC Unsaturated IBC Transferrin % Sat Ferritin Total Bilirubin Direct Bilirubin AST ALT Alkaline Phosphatase Total Protein Albumin Globulin Albumin/Globulin Ratio 01/28/24 01/29/24 01/29/24 21:04 05:27 07:49 WBC 11.81 H RBC 2.12 L Hgb 7.2 L Hct 22.3 L MCV 105.2 H MCH 34.0 MCHC 32.3 RDW Std Deviation 51.0 H RDW Coeff of Poornima 13.3 Plt Count 193 MPV 10.7 Immature Gran % (Auto) 0.5 Neut % (Auto) 83.9 Lymph % (Auto) 9.4 [place] % (Auto) 5.4 Eos % (Auto) 0.5 Baso % (Auto) 0.3 Neut # (Auto) 9.91 H Lymph # (Auto) 1.11 L [place] # (Auto) 0.64 H Eos # (Auto) 0.06 Baso # (Auto) 0.03 Immature Gran # (Auto) 0.06 Polychromasia 1+ Sodium 138 Potassium 4.0 Chloride 100 Carbon Dioxide 25 Anion Gap 13 H BUN 42 H Creatinine 7.75 H* D Est Cr Clr Drug Dosing 6.1 eGFR 5.03 BUN/Creatinine Ratio 5.4 L Glucose 124 H POC Glucose 148 H 137 H Calcium 7.7 L Phosphorus 7.1 H Iron 30 L TIBC 97 L Unsaturated IBC 67 L Transferrin % Sat 31 Ferritin 2790.0 H Total Bilirubin 0.5 Direct Bilirubin 0.2 AST 220 H ALT 198 H Alkaline Phosphatase 84 Total Protein 4.6 L Albumin 2.1 L Globulin 2.5 Albumin/Globulin Ratio 0.8 L PG Care Time/CCT Total # of Minutes Spent Total Time Spent with Patient: Total time spent is greater than 50% in coordination of care (as documented) at patient's floor/unit and/or counseling patient: Coding Level of Care Code 99659 SUB INP/OBS CARE 3/50MIN Diagnoses ESRD (end stage renal disease) N18.6 Cholecystitis K81.9 Essential hypertension I10 Hypertension type: essential hypertension Anemia D64.9 (3) Hypertension Hypertension type: essential hypertension Qualified Code(s): I10 - Essential (primary) hypertension
[2024-01-29] MEDS: EPOETIN ALFA 20,000 UNITS/ML VIAL IV ONE (10:40)
[2024-01-29] MEDS: HEPARIN SOD (PORCINE) 1000 UNIT/ML IV ONE (10:42)
[2024-01-29] MEDS: HEPARIN SOD (PORCINE) 1000 UNIT/ML IV SCH (10:42)
--- NOTE | 2024-01-30 09:27 | Nephrology Progress Note ---
Date of Service January 30, 2024 Assessment & Plan (1) ESRD (end stage renal disease): Plan: * ESKD due to DKD/HTN. * Patient had been on an NCCPD therapy (4 exchanges, 2.5% Delflex, 2.2 L fill volume, 90-minute dwell, EDW 76 kg) * Patient transition from NCCPD to HD 01/27/2024 due to cholecystitis requiring cholecystectomy. Plan is for her to remain on IHD x 2 weeks to allow her to fully recover from her surgery. She will then transition back to NCCPD therapy. * Patient appears clinically euvolemic. Electrolyte is acceptable. No acute indication for HD today. (2) Cholecystitis: Plan: * s/p lap cj 01/28/24. Tolerated surgery well. Diet is being advanced. Remains on Zosyn. (3) Hypertension: Plan: * BP has been variable * Continue metoprolol, furosemide (4) Anemia: Plan: * Epogen 54358 units with HD 01/25/24. Epogen 96305 units given w/ HD 01/29/24 * Continue to monitor H/H pre-HD. Admission and Anticipated Discharge Date Admission Date: January 27, 2024 Subjective Ms. Guthrie was evaluated in her hospital room this morning. He reports that her abdominal discomfort has greatly proved. She is now tolerating small am ounts of an oral diet. Ms. Guthrie received hemodialysis yesterday. She reports that the treatment was uneventful. Her right arm AV fistula continues to function well. She voices no new medical concerns. Review of Systems Constitutional: no fever Eyes: no problem reported Ear, Nose, Mouth, Throat: no problem reported Respiratory: no cough and no dyspnea Cardiovascular: no chest pain Gastrointestinal: no nausea and no vomiting Genitourinary: no dysuria and no hematuria Integumentary: no rash Neurologic: no problem reported Physical Exam Constitutional: not in distress Eyes: PERRL, conjunctivae normal, anicteric sclerae ENMT: external ear and nose normal, oropharynx normal Neck: trachea midline, no thyromegaly Respiratory: normal respiratory effort, lungs clear to auscultation Cardiovascular: RRR, no murmur, no edema Right upper arm AV fistula positive bruit Gastrointestinal (Abdomen): normal bowel sounds, soft, nontender, no hepatosplenomegaly PD catheter remains in place. Clean dry dressing overlying the exit site. Musculoskeletal: Extremities: no cyanosis and no clubbing Skin: no rashes, warm and dry Neurologic: awake; not confused Results & Data Vital Signs (Past 12 Hours) Vital Signs Temp Pulse Resp BP Pulse Ox O2 Del Method 01/30/24 08:00 Room Air 01/30/24 07:20 37.0 C 73 16 153/75 H 97 Room Air Laboratory Results Laboratory Results - last 24 hr 01/29/24 01/29/24 01/29/24 12:40 16:32 20:53 WBC RBC Hgb Hct MCV MCH MCHC RDW Std Deviation RDW Coeff of Poornima Plt Count MPV Immature Gran % (Auto) Neut % (Auto) Lymph % (Auto) [place] % (Auto) Eos % (Auto) Baso % (Auto) Neut # (Auto) Lymph # (Auto) [place] # (Auto) Eos # (Auto) Baso # (Auto) Immature Gran # (Auto) Sodium Potassium Chloride Carbon Dioxide Anion Gap BUN Creatinine Est Cr Clr Drug Dosing eGFR BUN/Creatinine Ratio Glucose POC Glucose 121 H 224 H 215 H Calcium 01/30/24 01/30/24 01/30/24 07:57 09:47 09:53 WBC 9.26 RBC 2.06 L Hgb 7.1 L Hct 21.7 L MCV 105.3 H MCH 34.5 H MCHC 32.7 RDW Std Deviation 50.9 H RDW Coeff of Poornima 13.2 Plt Count 192 MPV 10.6 Immature Gran % (Auto) 0.5 Neut % (Auto) 84.0 Lymph % (Auto) 7.0 [place] % (Auto) 6.6 Eos % (Auto) 1.6 Baso % (Auto) 0.3 Neut # (Auto) 7.77 H Lymph # (Auto) 0.65 L [place] # (Auto) 0.61 H Eos # (Auto) 0.15 Baso # (Auto) 0.03 Immature Gran # (Auto) 0.05 Sodium Pending Potassium Pending Chloride Pending Carbon Dioxide Pending Anion Gap Pending BUN Pending Creatinine Pending Est Cr Clr Drug Dosing Pending eGFR Pending BUN/Creatinine Ratio Pending Glucose Pending POC Glucose 121 H Calcium Pending Laboratory Results - last 24 hr 01/29/24 01/29/24 01/29/24 12:40 16:32 20:53 WBC RBC Hgb Hct MCV MCH MCHC RDW Std Deviation RDW Coeff of Poornima Plt Count MPV Immature Gran % (Auto) Neut % (Auto) Lymph % (Auto) [place] % (Auto) Eos % (Auto) Baso % (Auto) Neut # (Auto) Lymph # (Auto) [place] # (Auto) Eos # (Auto) Baso # (Auto) Immature Gran # (Auto) Sodium Potassium Chloride Carbon Dioxide Anion Gap BUN Creatinine Est Cr Clr Drug Dosing eGFR BUN/Creatinine Ratio Glucose POC Glucose 121 H 224 H 215 H Calcium 01/30/24 01/30/24 01/30/24 07:57 09:47 09:53 WBC 9.26 RBC 2.06 L Hgb 7.1 L Hct 21.7 L MCV 105.3 H MCH 34.5 H MCHC 32.7 RDW Std Deviation 50.9 H RDW Coeff of Poornima 13.2 Plt Count 192 MPV 10.6 Immature Gran % (Auto) 0.5 Neut % (Auto) 84.0 Lymph % (Auto) 7.0 [place] % (Auto) 6.6 Eos % (Auto) 1.6 Baso % (Auto) 0.3 Neut # (Auto) 7.77 H Lymph # (Auto) 0.65 L [place] # (Auto) 0.61 H Eos # (Auto) 0.15 Baso # (Auto) 0.03 Immature Gran # (Auto) 0.05 Sodium 136 Potassium 3.8 Chloride 101 Carbon Dioxide 26 Anion Gap 9 BUN 34 H Creatinine 5.69 H* D Est Cr Clr Drug Dosing 8.4 eGFR 7.29 BUN/Creatinine Ratio 6.0 L Glucose 165 H POC Glucose 121 H Calcium 8.4 L PG Care Time/CCT Total # of Minutes Spent Total Time Spent with Patient: Total time spent is greater than 50% in coordination of care (as documented) at patient's floor/unit and/or counseling patient: Coding Level of Care Code 73113 SUB INP/OBS CARE 3/50MIN Diagnoses ESRD (end stage renal disease) N18.6 Cholecystitis K81.9 Essential hypertension I10 Hypertension type: essential hypertension Anemia D64.9 (3) Hypertension Hypertension type: essential hypertension Qualified Code(s): I10 - Essential (primary) hypertension
--- NOTE | 2024-01-30 10:00 | Surgery Progress Note ---
Date of Service January 30, 2024 Assessment & Plan (1) Acute cholecystitis: Plan: #2 Postoperative day status post robotic cholecystectomy Patient is doing well she is tolerating a diet Hemoglobin yesterday 7.2 repeat hemoglobin was ordered for today can restart Plavix if stable Will need outpatient antibiotics for approximately 1 week Plan discharge per medical service Admission and Anticipated Discharge Date Admission Date: January 27, 2024 Subjective Patient feels much better since she has had surgery for her gallbladder and her pain is subsiding compared to yesterday is tolerating diet Physical Exam Physical Exam: Alert coherent in no distress The abdomen is completely benign trocar sites are healing well Results & Data Vital Signs (Past 12 Hours) Vital Signs Temp Pulse Resp BP Pulse Ox O2 Del Method 01/30/24 08:00 Room Air 01/30/24 07:20 37.0 C 73 16 153/75 H 97 Room Air
[2024-01-30 10:19] LABS: Basophils # (auto) 0.03 K/uL (0.00-0.20); Basophils % (auto) 0.3 %; Eosinophils # (auto) 0.15 K/uL (0.00-0.50); Eosinophils % (auto) 1.6 %; Hematocrit (blood only) 21.7 % (37.0-47.0); Hemoglobin 7.1 g/dl (12.0-16.0); Immature Granulocytes # (auto) 0.05 K/uL (0.01-0.20); Immature Granulocytes % (auto) 0.5 %; Lymphocytes # (auto) 0.65 K/uL (1.20-3.40); Mean Corpuscular Hemoglobin 34.5 pg (25.0-34.0); Mean Corpuscular Hgb Conc 32.7 g/dL (32.0-36.0); Mean Corpuscular Volume 105.3 fL (80.0-100.0); Mean Platelet Volume 10.6 fL (9.4-12.4); Monocytes # (auto) 0.61 K/uL (0.11-0.59); Monocytes % (auto) 6.6 %; Neutrophils # (auto) 7.77 K/uL (1.40-6.50); Platelet Count 192 K/uL (130-400); RDW Coefficient of Variation 13.2 % (11.5-14.5); RDW Standard Deviation 50.9 fL (36.4-46.3); Red Blood Count 2.06 M/uL (4.20-5.40); White Blood Count 9.26 K/ul (4.8-10.8)
[2024-01-30 10:35] LABS: Calcium 8.4 mg/dl (8.6-10.3); Creatinine Clr Calc Pharmacy 8.4 ml/min; Potassium 3.8 mmol/L (3.5-5.1)
[2024-01-30 10:51] LABS: Macrocytosis Present; Polychromasia 1+
--- NOTE | 2024-01-30 13:20 | Hospitalist Progress Note ---
Date of Service January 29, 2024 Assessment & Plan (1) Acute cholecystitis: Plan: 73yo female with history of CAD with recent LIBRA stent placement to mid-LAD in May 2023, ESRD on PD and DM presenting with RUQ abdominal pain, subjective fever/chills and nausea/vomiting. Patient found to have acute cholecystitis. Labs are significant for leukocytosis with WBC=11.47 with neutrophil predominance. LFTs and Lipase are WNL. CT as above with marked cholelithiasis with gallbladder distention and wall thickening. No ductal dilatation -Admit to medical -Keep patient NPO -Zosyn 4.5gm IV BID dosed for renal function -Morphine PRN pain -Zofran PRN nausea -Tylenol as needed for pain or fever -Gallbladder ultrasound ordered -Appreciate General Surgery assistance -Will hold Plavix. Continue ASA 81mg po daily - patient with LIBRA placed to mid- LAD on 06/23/23 Surgery on 01/27 PAtient doing well on 01/28 WIll continue to monitor. (2) CAD (coronary artery disease): Plan: Patient denies chest pain. She has CAD with stent placement. Follows with Dr. Kumar -Continue ASA 81mg daily -Continue Metoprolol 50mg po qAM -Continue Crestor 40mg po qPM -Hold Plavix (3) ESRD (end stage renal disease): Plan: Patient with ESRD on PD. She follows with Dr. Wing -Nephrology consultation appreciated -Avoid nephrotoxic agents -Renal dosing where needed Plan Chronic Medical Conditions: Anxiety - -Continue Buspirone PRN CHF - patient appears euvolemic -Continue Lasix 80mg po BID17 -Continue Metoprolol Diabetes -Lantus 7u BID with ISS -Goal blood sugar 110 - 140 F/E/N - Saline lock. Electrolytes WNL. NPO for now Ppx - SCDs to bilateral LE Code - Full per discussion with patient Dispo - Admit to medical Admission and Anticipated Discharge Date Admission Date: January 27, 2024 Subjective 73 yo female reports no new symptoms. Review of Systems Review of Systems: All systems reviewed & are unremarkable except as noted in HPI & below Physical Exam Physical Exam: General: patient resting comfortably, NAD Skin: warm, dry, intact, no rashes or lesions HEENT: NC/AT Heart: +S1/S2, regular with ectopy, no m/r/g Lungs: equal air entry bilaterally, no rales/rhonchi/wheezes Ext: warm, 2+ pulses in UE/LE bilaterally, no clubbing/cyanosis, trace bilateral LE edema Neuro: nonfocal, patient AA&O x 4 Results & Data Results & Data Vital Signs (Past 12 Hours) Vital Signs Temp Pulse Resp BP Pulse Ox O2 Del Method 01/30/24 08:00 Room Air 01/30/24 07:20 37.0 C 73 16 153/75 H 97 Room Air PG Care Time/CCT Total # of Minutes Spent Total Time Spent with Patient: Total time spent is greater than 50% in coordination of care (as documented) at patient's floor/unit and/or counseling patient: Coding Level of Care Code 37572 SUB INP/OBS CARE 2/35MIN Diagnoses Acute cholecystitis K81.0 CAD (coronary artery disease) I25.10 ESRD (end stage renal disease) N18.6
[2024-01-30] MEDS: POLYETHYLENE (MIRALAX) 17 GM PACK PO SCH (18:40)
[2024-01-31 06:20] LABS: Hematocrit (blood only) 20.3 % (37.0-47.0); Hemoglobin 6.7 g/dl (12.0-16.0); Mean Corpuscular Hemoglobin 34.2 pg (25.0-34.0); Mean Corpuscular Volume 103.6 fL (80.0-100.0); Mean Platelet Volume 10.6 fL (9.4-12.4); Platelet Count 210 K/uL (130-400); RDW Coefficient of Variation 12.8 % (11.5-14.5); RDW Standard Deviation 47.5 fL (36.4-46.3); Red Blood Count 1.96 M/uL (4.20-5.40); White Blood Count 7.87 K/ul (4.8-10.8)
[2024-01-31] MEDS ORDERED: SODIUM CHLORIDE 0.9% 250 ML IV PRN (06:28)
[2024-01-31 06:49] LABS: BUN Creatinine Ratio 5.7 (10-20); Calcium 8.5 mg/dl (8.6-10.3); Potassium 3.9 mmol/L (3.5-5.1)
--- NOTE | 2024-01-31 08:19 | Hospitalist Progress Note ---
Date of Service January 30, 2024 Assessment & Plan (1) Acute cholecystitis: Plan: 73yo female with history of CAD with recent LIBRA stent placement to mid-LAD in May 2023, ESRD on PD and DM presenting with RUQ abdominal pain, subjective fever/chills and nausea/vomiting. Patient found to have acute cholecystitis. Labs are significant for leukocytosis with WBC=11.47 with neutrophil predominance. LFTs and Lipase are WNL. CT as above with marked cholelithiasis with gallbladder distention and wall thickening. No ductal dilatation -Admit to medical -Keep patient NPO -Zosyn 4.5gm IV BID dosed for renal function -Morphine PRN pain -Zofran PRN nausea -Tylenol as needed for pain or fever -Gallbladder ultrasound ordered -Appreciate General Surgery assistance -Will hold Plavix. Continue ASA 81mg po daily - patient with LIBRA placed to mid- LAD on 06/23/23 Surgery on 01/27 PAtient doing well on 01/28 WIll continue to monitor. Needed 2 person assist to get in a chair. No BM, ordered miralax. (2) CAD (coronary artery disease): Plan: Patient denies chest pain. She has CAD with stent placement. Follows with Dr. Kumar -Continue ASA 81mg daily -Continue Metoprolol 50mg po qAM -Continue Crestor 40mg po qPM -Hold Plavix (3) ESRD (end stage renal disease): Plan: Patient with ESRD on PD. She follows with Dr. Wing -Nephrology consultation appreciated -Avoid nephrotoxic agents -Renal dosing where needed Plan Chronic Medical Conditions: Anxiety - -Continue Buspirone PRN CHF - patient appears euvolemic -Continue Lasix 80mg po BID17 -Continue Metoprolol Diabetes -Lantus 7u BID with ISS -Goal blood sugar 110 - 140 F/E/N - Saline lock. Electrolytes WNL. NPO for now Ppx - SCDs to bilateral LE Code - Full per discussion with patient Dispo - Admit to medical Admission and Anticipated Discharge Date Admission Date: January 27, 2024 Subjective Patient reports no new symptoms. Nurse reports patient needed 2 people assist to get her in a chair. Review of Systems Review of Systems: All systems reviewed & are unremarkable except as noted in HPI & below Physical Exam Physical Exam: General: patient resting comfortably, NAD Skin: warm, dry, intact, no rashes or lesions HEENT: NC/AT Heart: +S1/S2, regular with ectopy, no m/r/g Lungs: equal air entry bilaterally, no rales/rhonchi/wheezes Ext: warm, 2+ pulses in UE/LE bilaterally, no clubbing/cyanosis, trace b ilateral LE edema Neuro: nonfocal, patient AA&O x 4 Results & Data Results & Data Vital Signs (Past 12 Hours) Vital Signs Temp Pulse Pulse Resp BP Pulse Ox O2 Del Method 01/31/24 07:44 36.9 C 74 18 164/83 H 96 Room Air 01/30/24 20:50 Room Air 01/30/24 20:32 36.4 C L 72 16 162/72 H 98 Room Air PG Care Time/CCT Total # of Minutes Spent Total Time Spent with Patient: Total time spent is greater than 50% in coordination of care (as documented) at patient's floor/unit and/or counseling patient: Coding Level of Care Code 24713 SUB INP/OBS CARE 2/35MIN Diagnoses Acute cholecystitis K81.0 CAD (coronary artery disease) I25.10 ESRD (end stage renal disease) N18.6
--- NOTE | 2024-01-31 09:00 | Nephrology Progress Note ---
Date of Service January 31, 2024 Assessment & Plan (1) ESRD (end stage renal disease): Plan: * ESKD due to DKD/HTN. * Patient had been on an NCCPD therapy (4 exchanges, 2.5% Delflex, 2.2 L fill volume, 90-minute dwell, EDW 76 kg) * Patient transition from NCCPD to HD 01/27/2024 due to cholecystitis requiring cholecystectomy. Plan is for her to remain on IHD x 2 weeks to allow her to fully recover from her surgery. She will then transition back to NCCPD therapy. * Patient appears clinically euvolemic. Electrolyte is acceptable. No acute indication for HD today * Will order HD for am in case patient remains hospitalized (2) Anemia: Plan: * Epogen 24495 units with HD 01/25/24. Epogen 12381 units given w/ HD 01/29/24 * Hgb has dropped to 6.9 this am. Primary service has ordered blood transfusion * H&H, BMP ordered for am (3) Cholecystitis: Plan: * s/p lap cj 01/28/24. Tolerated surgery well. Diet is being advanced. Remains on Zosyn. (4) Hypertension: Plan: * BP has been variable * Continue metoprolol, furosemide Admission and Anticipated Discharge Date Admission Date: January 27, 2024 Subjective Ms. Guthrie was evaluated in her hospital room this morning. Her abdominal discomfort is subjectively improved. She is tolerating an oral diet. Ms. Guthrie voices no new medical concerns. Review of Systems Constitutional: no fever Eyes: no problem reported Ear, Nose, Mouth, Throat: no problem reported Respiratory: no cough and no dyspnea Cardiovascular: no chest pain Gastrointestinal: no nausea and no vomiting Genitourinary: no dysuria and no hematuria Integumentary: no rash Neurologic: no problem reported Physical Exam Constitutional: not in distress Eyes: PERRL, conjunctivae normal, anicteric sclerae ENMT: external ear and nose normal, oropharynx normal Neck: trachea midline, no thyromegaly Respiratory: normal respiratory effort, lungs clear to auscultation Cardiovascular: RRR, no murmur, no edema Gastrointestinal (Abdomen): normal bowel sounds, soft, nontender, no hepatosplenomegaly Musculoskeletal: Extremities: no cyanosis and no clubbing Skin: no rashes, warm and dry Neurologic: awake; not confused Results & Data Vital Signs (Past 12 Hours) Vital Signs Temp Pulse Resp BP Pulse Ox O2 Del Method 01/31/24 07:44 36.9 C 74 18 164/83 H 96 Room Air Laboratory Results Laboratory Results WBC 7.87 K/ul (4.8-10.8) 01/31/24 05:22 RBC 1.96 M/uL (4.20-5.40) L 01/31/24 05:22 Hgb 6.7 g/dl (12.0-16.0) L* 01/31/24 05:22 Hct 20.3 % (37.0-47.0) L* 01/31/24 05:22 MCV 103.6 fL (80.0-100.0) H 01/31/24 05:22 MCH 34.2 pg (25.0-34.0) H 01/31/24 05:22 MCHC 33.0 g/dL (32.0-36.0) 01/31/24 05:22 RDW Std Deviation 47.5 fL (36.4-46.3) H 01/31/24 05:22 RDW Coeff of Poornima 12.8 % (11.5-14.5) 01/31/24 05:22 Plt Count 210 K/uL (130-400) 01/31/24 05:22 MPV 10.6 fL (9.4-12.4) 01/31/24 05:22 Immature Gran % (Auto) 0.5 % 01/30/24 09:53 Neut % (Auto) 84.0 % 01/30/24 09:53 Lymph % (Auto) 7.0 % 01/30/24 09:53 [place] % (Auto) 6.6 % 01/30/24 09:53 Eos % (Auto) 1.6 % 01/30/24 09:53 Baso % (Auto) 0.3 % 01/30/24 09:53 Neut # (Auto) 7.77 K/uL (1.40-6.50) H 01/30/24 09:53 Lymph # (Auto) 0.65 K/uL (1.20-3.40) L 01/30/24 09:53 [place] # (Auto) 0.61 K/uL (0.11-0.59) H 01/30/24 09:53 Eos # (Auto) 0.15 K/uL (0.00-0.50) 01/30/24 09:53 Baso # (Auto) 0.03 K/uL (0.00-0.20) 01/30/24 09:53 Immature Gran # (Auto) 0.05 K/uL (0.01-0.20) 01/30/24 09:53 Polychromasia 1+ 01/30/24 09:53 Macrocytosis Present 01/30/24 09:53 PT 10.9 Seconds (9.0-12.0) 01/27/24 04:40 INR 1.0 (0.9-1.1) 01/27/24 04:40 APTT 23 Seconds (21-31) 01/27/24 04:40 PTT Ratio 0.9 01/27/24 04:40 Sodium 136 mmol/L (136-145) 01/31/24 05:22 Potassium 3.9 mmol/L (3.5-5.1) 01/31/24 05:22 Chloride 100 mmol/L (98-107) 01/31/24 05:22 Carbon Dioxide 27 mmol/L (21-32) 01/31/24 05:22 Anion Gap 9 (3-11) 01/31/24 05:22 BUN 39 mg/dl (6-23) H 01/31/24 05:22 Creatinine 6.80 mg/dl (0.6-1.2) H* D 01/31/24 05:22 Est Cr Clr Drug Dosing 7.0 ml/min 01/31/24 05:22 eGFR 5.89 01/31/24 05:22 Est GFR ( Amer) 3.9 ml/min 01/27/24 04:40 Est GFR (Non-Af Amer) 3.3 ml/min 01/27/24 04:40 BUN/Creatinine Ratio 5.7 (10-20) L 01/31/24 05:22 Glucose 97 mg/dl (70-99(Fasting)) 01/31/24 05:22 POC Glucose 110 mg/dl (70-99) H 01/31/24 07:27 Calcium 8.5 mg/dl (8.6-10.3) L 01/31/24 05:22 Phosphorus 7.1 mg/dl (2.5-4.9) H 01/29/24 05:27 Iron 30 mcg/dl (35-150) L 01/29/24 05:27 TIBC 97 mcg/dl (250-450) L 01/29/24 05:27 Unsaturated IBC 67 mcg/dl (155-355) L 01/29/24 05:27 Transferrin % Sat 31 % (15-50) 01/29/24 05:27 Ferritin 2790.0 ng/ml (8-388) H 01/29/24 05:27 Total Bilirubin 0.5 mg/dl (0.2-1.0) 01/29/24 05:27 Direct Bilirubin 0.2 mg/dl (0-0.2) 01/29/24 05:27 AST 220 U/L (13-39) H 01/29/24 05:27 ALT 198 U/L (7-52) H 01/29/24 05:27 Alkaline Phosphatase 84 U/L (34-104) 01/29/24 05:27 Total Protein 4.6 gm/dl (6.0-8.3) L 01/29/24 05:27 Albumin 2.1 gm/dl (3.4-5.0) L 01/29/24 05:27 Globulin 2.5 gm/dl (2.5-4.0) 01/29/24 05:27 Albumin/Globulin Ratio 0.8 (0.9-2) L 01/29/24 05:27 Lipase 13 U/L (11-82) 01/27/24 04:40 Vitamin B12 > 1500 pg/ml (180-914) H 01/28/24 05:26 Folate > 22.30 ng/ml (>5.38) 01/28/24 05:26 Urine Color Yellow 01/27/24 Unknown Urine Appearance Cloudy (Clear) A 01/27/24 Unknown Urine pH 8.0 (4.5-7.5) H 01/27/24 Unknown Ur Specific [place] 1.014 (1.000-1.030) 01/27/24 Unknown Urine Protein 3+ (Negative) H 01/27/24 Unknown Urine Glucose (UA) Trace (Negative) H 01/27/24 Unknown Urine Ketones Trace (Negative) H 01/27/24 Unknown Urine Blood Trace (Negative) H 01/27/24 Unknown Urine Nitrite Negative (Negative) 01/27/24 Unknown Urine Bilirubin Negative (Negative) 01/27/24 Unknown Urine Urobilinogen Negative (Negative) 01/27/24 Unknown Ur Leukocyte Esterase 1+ (Negative) H 01/27/24 Unknown Urine WBC (Auto) 21-50 /hpf (0-5) H 01/27/24 Unknown Urine RBC (Auto) 6-10 /hpf (0-2) H 01/27/24 Unknown U Hyaline Cast (Auto) 0-2 /lpf (0-2) 01/27/24 Unknown U Epithel Cells (Auto) 6-10 /hpf (0-2) H 01/27/24 Unknown Urine Bacteria (Auto) 1+ (None Seen) H 01/27/24 Unknown Adenovirus (PCR) Not Detected (NotDetected) 01/27/24 05:15 B. pertussis DNA (PCR) Not Detected (NotDetected) 01/27/24 05:15 B.parapertussis DNA PCR Not Detected (NotDetected) 01/27/24 05:15 C. pneumoniae DNA (PCR) Not Detected (NotDetected) 01/27/24 05:15 Coronavirus OC43 (PCR) Not Detected (NotDetected) 01/27/24 05:15 Coronavirus HKU1 (PCR) Not Detected (NotDetected) 01/27/24 05:15 Coronavirus 229E (PCR) Not Detected (NotDetected) 01/27/24 05:15 SARS-CoV-2 (PCR) Not Detected (NotDetected) 01/27/24 05:15 Coronavirus NL63 (PCR) Not Detected (NotDetected) 01/27/24 05:15 Human Metapneumovir PCR Not Detected (NotDetected) 01/27/24 05:15 Influenza Type A (PCR) Not Detected (NotDetected) 01/27/24 05:15 Influenza Type B (PCR) Not Detected (NotDetected) 01/27/24 05:15 M. pneumoniae (PCR) Not Detected (NotDetected) 01/27/24 05:15 Parainfluenza 1 (PCR) Not Detected (NotDetected) 01/27/24 05:15 Parainfluenza 2 (PCR) Not Detected (NotDetected) 01/27/24 05:15 Parainfluenza 3 (PCR) Not Detected (NotDetected) 01/27/24 05:15 Parainfluenza 4 (PCR) Not Detected (NotDetected) 01/27/24 05:15 RSV (PCR) Not Detected (NotDetected) 01/27/24 05:15 Entero/Rhino (PCR) DETECTED (NotDetected) A 01/27/24 05:15 Blood Type O Positive 01/31/24 05:22 Antibody Screen NEGATIVE 01/31/24 05:22 Crossmatch See Detail 01/31/24 05:22 Impressions Abdomen/Pelvis CT 01/27/24 04:40 Exam(s): CT ABDOMEN + PELVIS Without Contrast EXAM: CT Abdomen and Pelvis Without Intravenous Contrast CLINICAL HISTORY: Abdominal Pain TECHNIQUE: Axial computed tomography images of the abdomen and pelvis without intravenous contrast. CTDI is 20.78 mGy and DLP is 1065.95 mGy-cm. Automated exposure control was utilized for the study. A dose lowering technique was utilized adhering to the principles of ALARA. COMPARISON: Renal ultrasound 01/07/[address] abdomen and pelvis 03/16/2019 FINDINGS: Lung bases: Unremarkable. No mass. No consolidation. ABDOMEN: Liver: Unremarkable. Gallbladder and bile ducts: Marked cholelithiasis with distention of the gallbladder and thickening of the wall. No ductal dilation. Pancreas: Unremarkable. No ductal dilation. Spleen: Unremarkable. No splenomegaly. Adrenals: Unremarkable. No mass. Kidneys and ureters: Simple appearing bilateral renal cysts are present, no follow up is needed. The kidneys are otherwise unremarkable. No hydronephrosis. Stomach and bowel: Diverticulosis. No obstruction. No mucosal thickening. PELVIS: Appendix: No findings to suggest acute appendicitis. Bladder: Unremarkable. No stones. Reproductive: Multiple calcified masses in the uterus likely represent fibroids. ABDOMEN and PELVIS: Intraperitoneal space: Unremarkable. No free air. No significant fluid collection. Bones/joints: There are degenerative changes of the spine. No acute fracture. No dislocation. Soft tissues: Unremarkable. Vasculature: Moderate atherosclerosis. No abdominal aortic aneurysm. Lymph nodes: Unremarkable. No enlarged lymph nodes. Tubes, lines and devices: The peritoneal dialysis catheter is noted. IMPRESSION: 1. Marked cholelithiasis with distention of the gallbladder and thickening of the wall. This most consistent with acute cholecystitis. 2. Diverticulosis. Electronically signed by: Kena Henson MD 01/27/24 05:57 AM Gallbladder Ultrasound 01/27/24 06:11 US gallbladder CLINICAL HISTORY: Cholelithiasis. COMPARISON STUDY: CT of the abdomen and pelvis January 27, 2024. FINDINGS: No hepatic lesions are identified. There is no biliary ductal dilatation. Numerous gallstones within the gallbladder are present. The gallbladder is distended. The gallbladder wall is moderately thickened and edematous. No sonographic Ledbetter sign was elicited. The pancreatic body is normal. Head and tail are obscured. There is no right hydronephrosis. IMPRESSION: 1. Cholelithiasis with distended gallbladder and gallbladder wall thickening. No sonographic Ledbetter sign. The findings could represent acute or chronic cholecystitis. A nuclear medicine hepatobiliary scan could be obtained to differentiate between these possibilities. 2. No biliary ductal dilatation. ACT 112: Negative or not required by law. Electronically signed by: Connor Lucero M.D. 01/27/2024 9:49 AM PG Care Time/CCT Total # of Minutes Spent Total Time Spent with Patient: Total time spent is greater than 50% in coordination of care (as documented) at patient's floor/unit and/or counseling patient: Coding Level of Care Code 04107 SUB INP/OBS CARE 3/50MIN Diagnoses ESRD (end stage renal disease) N18.6 Anemia D64.9 Cholecystitis K81.9 Essential hypertension I10 Hypertension type: essential hypertension (4) Hypertension Hypertension type: essential hypertension Qualified Code(s): I10 - Essential (primary) hypertension
--- NOTE | 2024-01-31 09:04 | Surgery Progress Note ---
Date of Service January 31, 2024 Assessment & Plan (1) Acute cholecystitis: Plan: POD #3 status post robotic cholecystectomy Patient is doing well she is tolerating a low fat, carb consistent diet Hgb 6.7, HCT 20.3 today. Primary team aware. Will need outpatient antibiotics for approximately 1 week Plan discharge per medical service Patient seen and examined with Dr. Gonzalez. Plan As per Carmel Solorio physician psychologist research assistant Surgically the patient can be discharged anytime instructions given regarding follow-up Admission and Anticipated Discharge Date Admission Date: January 27, 2024 Subjective Karis is resting in bed, finishing breakfast. She reports that she is doing much better today. Review of Systems Constitutional: as per Subjective / HPI; no fever and no chills Gastrointestinal: + abdominal pain (appropriately at incis ion sites. ); no nausea and no vomiting Physical Exam Physical Exam: Alert coherent in no distress The abdomen is completely benign trocar sites are healing well (Dermabond)with no signs of infection on exam. Results & Data Vital Signs (Past 12 Hours) Vital Signs Temp Pulse Resp BP Pulse Ox O2 Del Method 01/31/24 07:44 36.9 C 74 18 164/83 H 96 Room Air PG Care Time/CCT Total # of Minutes Spent Total Time Spent with Patient: Total time spent is greater than 50% in coordination of care (as documented) at patient's floor/unit and/or counseling patient: Coding Level of Care Code 70406 Post Operative Follow-Up Diagnoses Acute cholecystitis K81.0
--- NOTE | 2024-01-31 22:07 | Hospitalist Progress Note ---
Date of Service January 31, 2024 Assessment & Plan (1) Acute cholecystitis: Plan: 73yo female with history of CAD with recent LIBRA stent placement to mid-LAD in May 2023, ESRD on PD and DM presenting with RUQ abdominal pain, subjective fever/chills and nausea/vomiting. Patient found to have acute cholecystitis. Labs are significant for leukocytosis with WBC=11.47 with neutrophil predominance. LFTs and Lipase are WNL. CT as above with marked cholelithiasis with gallbladder distention and wall thickening. No ductal dilatation -Admit to medical -Keep patient NPO -Zosyn 4.5gm IV BID dosed for renal function -Morphine PRN pain -Zofran PRN nausea -Tylenol as needed for pain or fever -Gallbladder ultrasound ordered -Appreciate General Surgery assistance -Will hold Plavix. Continue ASA 81mg po daily - patient with LIBRA placed to mid- LAD on 06/23/23 Surgery on 01/27 PAtient doing well on 01/30 Needed 2 person assist to get in a chair. Patient will likely need placement. PT/OT ordered. No BM, ordered miralax. (2) CAD (coronary artery disease): Plan: Patient denies chest pain. She has CAD with stent placement. Follows with Dr. Kumar -Continue ASA 81mg daily -Continue Metoprolol 50mg po qAM -Continue Crestor 40mg po qPM -Hold Plavix (3) ESRD (end stage renal disease): Plan: Patient with ESRD on PD. She follows with Dr. Wing -Nephrology consultation appreciated -Avoid nephrotoxic agents -Renal dosing where needed Plan Chronic Medical Conditions: Anxiety - -Continue Buspirone PRN CHF - patient appears euvolemic -Continue Lasix 80mg po BID17 -Continue Metoprolol Diabetes -Lantus 7u BID with ISS -Goal blood sugar 110 - 140 F/E/N - Saline lock. Electrolytes WNL. NPO for now Ppx - SCDs to bilateral LE Code - Full per discussion with patient Dispo - Admit to medical Admission and Anticipated Discharge Date Admission Date: January 27, 2024 Subjective 73 yo female reports no new symptoms. Review of Systems Review of Systems: All systems reviewed & are unremarkable except as noted in HPI & below Physical Exam Physical Exam: General: patient resting comfortably, NAD Skin: warm, dry, intact, no rashes or lesions HEENT: NC/AT Heart: +S1/S2, regular with ectopy, no m/r/g Lungs: equal air entry bilaterally, no rales/rhonchi/wheezes Ext: warm, 2+ pulses in UE/LE bilaterally, no clubbing/cyanosis, trace bilateral LE edema Neuro: nonfocal, patient AA&O x 4 Results & Data Results & Data Vital Signs (Past 12 Hours) Vital Signs Temp Pulse Pulse Pulse Resp BP BP 01/31/24 19:09 37 C 74 18 172/76 H 01/31/24 16:34 36.9 C 75 18 170/83 H 01/31/24 16:05 36.6 C 75 18 153/79 H 01/31/24 15:04 36.4 C L 76 18 150/79 H 01/31/24 14:35 36.5 C 84 18 153/79 H 01/31/24 14:20 36.9 C 80 18 149/78 H 01/31/24 13:59 37.2 C 86 14 150/77 H 01/31/24 13:29 37.1 C 82 17 150/73 H 01/31/24 12:30 37.0 C 92 H 185/77 H 01/31/24 11:31 37.4 C 82 18 165/87 H 01/31/24 11:30 37.4 C 84 18 165/87 H 01/31/24 11:00 37.0 C 81 17 150/75 H 01/31/24 10:45 37.0 C 75 17 150/80 H 01/31/24 10:22 37.3 C 75 18 150/83 H Pulse Ox O2 Del Method O2 Flow Rate 01/31/24 19:09 94 Room Air 01/31/24 16:34 98 01/31/24 16:05 99 01/31/24 15:04 97 01/31/24 14:35 01/31/24 14:20 97 01/31/24 13:59 95 01/31/24 13:29 95 01/31/24 12:30 97 01/31/24 11:31 94 Room Air 01/31/24 11:30 93 01/31/24 11:00 97 01/31/24 10:45 96 0 01/31/24 10:22 96 PG Care Time/CCT Total # of Minutes Spent Total Time Spent with Patient: Total time spent is greater than 50% in coordination of care (as documented) at patient's floor/unit and/or counseling patient: Coding Level of Care Code 42560 SUB INP/OBS CARE MIN Diagnoses Acute cholecystitis K81.0 CAD (coronary artery disease) I25.10 ESRD (end stage renal disease) N18.6
[2024-01-31] MEDS ORDERED: Nursing to Pharmacy Communication SCH (22:15)
[2024-01-31 23:06] LABS: Hematocrit (blood only) 28.2 % (37.0-47.0); Hemoglobin 9.5 g/dl (12.0-16.0)
[2024-02-01] MEDS ORDERED: SODIUM CHLORIDE 0.9% 1,000 ML IV PRN (07:00)
[2024-02-01 08:32] LABS: Hematocrit (blood only) 27.5 % (37.0-47.0); Hemoglobin 9.3 g/dl (12.0-16.0); Mean Corpuscular Hemoglobin 33.2 pg (25.0-34.0); Mean Corpuscular Hgb Conc 33.8 g/dL (32.0-36.0); Mean Corpuscular Volume 98.2 fL (80.0-100.0); Mean Platelet Volume 10.2 fL (9.4-12.4); Platelet Count 189 K/uL (130-400); RDW Coefficient of Variation 14.9 % (11.5-14.5); RDW Standard Deviation 53.4 fL (36.4-46.3); White Blood Count 7.69 K/ul (4.8-10.8)
[2024-02-01 08:48] LABS: BUN Creatinine Ratio 5.4 (10-20); Calcium 8.3 mg/dl (8.6-10.3); Creatinine Clr Calc Pharmacy 5.7 ml/min; Potassium 3.9 mmol/L (3.5-5.1)
--- NOTE | 2024-02-01 08:58 | Nephrology Progress Note ---
Date of Service February 01, 2024 Assessment & Plan (1) ESRD (end stage renal disease): Plan: * ESKD due to DKD/HTN. * Patient had been on an NCCPD therapy (4 exchanges, 2.5% Delflex, 2.2 L fill volume, 90-minute dwell, EDW 76 kg) * Patient transition from NCCPD to HD 01/27/2024 due to cholecystitis requiring cholecystectomy. Plan is for her to remain on IHD x 2 weeks to allow her to fully recover from her surgery. She will then transition back to NCCPD therapy. * Patient appears clinically euvolemic. Electrolyte is acceptable. No acute indication for HD today * Will provide heparin free HD today. Orders have been entered into EMR and HD RN notified (2) Anemia: Plan: * Epogen 75947 units with HD 01/25/24. Epogen 28336 units given w/ HD 01/29/24 * Hgb has improved to 9.3 following 2 units blood transfusion * H&H, BMP ordered for am (3) Cholecystitis: Plan: * s/p lap cj 01/28/24. Tolerated surgery well. Diet is being advanced. Remains on Zosyn. (4) Hypertension: Plan: * BP has been variable * Continue metoprolol, furosemide (5) Weakness: Plan: * Having mild abdominal pain and weakness following cholecystectomy * Will order PT evaluation * Patient considering inpatient PT following hospitalization to ensure she can perform ADL's before returning home Admission and Anticipated Discharge Date Admission Date: January 27, 2024 Subjective Ms. Guthrie was evaluated in her hospital room this morning. Her abdominal discomfort is subjectively improved and is tolerating an oral diet. Her primary concern is weakness and difficulty getting OOB to use the bathroom or sit in a chair. She requests PT evaluation Review of Systems Constitutional: no fever Eyes: no problem reported Ear, Nose, Mouth, Throat: no problem reported Respiratory: no cough and no dyspnea Cardiovascular: no chest pain Gastrointestinal: no nausea and no vomiting Genitourinary: no dysuria and no hematuria Integumentary: no rash Neurologic: no problem reported Physical Exam Constitutional: not in distress Eyes: PERRL, conjunctivae normal, anicteric sclerae ENMT: external ear and nose normal, oropharynx normal Neck: trachea midline, no thyromegaly Respiratory: normal respiratory effort, lungs clear to auscultation Cardiovascular: RRR, no murmur, no edema R upper arm AVF + bruit Gastrointestinal (Abdomen): normal bowel sounds, soft, nontender, no hepatosplenomegaly Musculoskeletal: Extremities: no cyanosis and no clubbing Skin: no rashes, warm and dry Neurologic: awake; not confused Results & Data Vital Signs (Past 12 Hours) Vital Signs Temp Pulse Resp BP Pulse Ox O2 Del Method 02/01/24 07:31 37.0 C 72 18 148/79 H 96 Room Air 02/01/24 07:25 Room Air Laboratory Results Laboratory Results - last 24 hr 01/31/24 01/31/24 01/31/24 05:22 11:28 16:42 WBC RBC Hgb Hct MCV MCH MCHC RDW Std Deviation RDW Coeff of Poornima Plt Count MPV Sodium Potassium Chloride Carbon Dioxide Anion Gap BUN Creatinine Est Cr Clr Drug Dosing eGFR BUN/Creatinine Ratio Glucose POC Glucose 172 H 194 H Calcium Blood Type O Positive Antibody Screen NEGATIVE Crossmatch See Detail 01/31/24 01/31/24 02/01/24 20:08 22:42 07:34 WBC RBC Hgb 9.5 L Hct 28.2 L MCV MCH MCHC RDW Std Deviation RDW Coeff of Poornima Plt Count MPV Sodium Potassium Chloride Carbon Dioxide Anion Gap BUN Creatinine Est Cr Clr Drug Dosing eGFR BUN/Creatinine Ratio Glucose POC Glucose 140 H 128 H Calcium Blood Type Antibody Screen Crossmatch 02/01/24 07:41 WBC 7.69 RBC 2.80 L Hgb 9.3 L Hct 27.5 L MCV 98.2 D MCH 33.2 MCHC 33.8 RDW Std Deviation 53.4 H RDW Coeff of Poornima 14.9 H Plt Count 189 MPV 10.2 Sodium 134 L Potassium 3.9 Chloride 99 Carbon Dioxide 23 Anion Gap 12 H BUN 45 H Creatinine 8.38 H* D Est Cr Clr Drug Dosing 5.7 eGFR 4.58 BUN/Creatinine Ratio 5.4 L Glucose 107 H POC Glucose Calcium 8.3 L Blood Type Antibody Screen Crossmatch PG Care Time/CCT Total # of Minutes Spent Total Time Spent with Patient: Total time spent is greater than 50% in coordination of care (as documented) at patient's floor/unit and/or counseling patient: Coding Level of Care Code 03923 SUB INP/OBS CARE 3/50MIN Diagnoses ESRD (end stage renal disease) N18.6 Anemia D64.9 Cholecystitis K81.9 Essential hypertension I10 Hypertension type: essential hypertension Weakness R53.1 (4) Hypertension Hypertension type: essential hypertension Qualified Code(s): I10 - Essential (primary) hypertension
[2024-02-01] MEDS: EPOETIN ALFA 10,000 UNITS/ML VIAL IV SCH (12:31)
--- NOTE | 2024-02-02 06:45 | Hospitalist Progress Note ---
Date of Service February 01, 2024 Assessment & Plan (1) Acute cholecystitis: Plan: 73yo female with history of CAD with recent LIBRA stent placement to mid-LAD in May 2023, ESRD on PD and DM presenting with RUQ abdominal pain, subjective fever/chills and nausea/vomiting. Patient found to have acute cholecystitis. Labs are significant for leukocytosis with WBC=11.47 with neutrophil predominance. LFTs and Lipase are WNL. CT as above with marked cholelithiasis with gallbladder distention and wall thickening. No ductal dilatation -Admit to medical -Keep patient NPO -Zosyn 4.5gm IV BID dosed for renal function -Morphine PRN pain -Zofran PRN nausea -Tylenol as needed for pain or fever -Gallbladder ultrasound ordered -Appreciate General Surgery assistance -Will hold Plavix. Continue ASA 81mg po daily - patient with LIBRA placed to mid- LAD on 06/23/23 Surgery on 01/27 PAtient doing well on 01/28 WIll continue to monitor. Needed 2 person assist to get in a chair on 01/29. Patient continues to be weak on 01/31 and would benefit from rehab. No BM, ordered miralax. (2) CAD (coronary artery disease): Plan: Patient denies chest pain. She has CAD with stent placement. Follows with Dr. Kumar -Continue ASA 81mg daily -Continue Metoprolol 50mg po qAM -Continue Crestor 40mg po qPM -Hold Plavix (3) ESRD (end stage renal disease): Plan: Patient with ESRD on PD. She follows with Dr. Wing -Nephrology consultation appreciated -Avoid nephrotoxic agents -Renal dosing where needed Anemia: Likely secondary to ESRD, possible blood loss anemia. reuired 2 PRBC overnight of 01/29-01/30 Hemoglobin now stable. no signs of active GI bleed. Plan Chronic Medical Conditions: Anxiety - -Continue Buspirone PRN CHF - patient appears euvolemic -Continue Lasix 80mg po BID17 -Continue Metoprolol Diabetes -Lantus 7u BID with ISS -Goal blood sugar 110 - 140 F/E/N - Saline lock. Electrolytes WNL. NPO for now Ppx - SCDs to bilateral LE Code - Full per discussion with patient Dispo - Admit to medical Admission and Anticipated Discharge Date Admission Date: January 27, 2024 Subjective 73 yo female reports no new symptoms. She explains that her pain is controlled, however she is weak and states she is interested in rehab. Review of Systems Review of Systems: All systems reviewed & are unremarkable except as noted in HPI & below Physical Exam Physical Exam: General: patient resting comfortably, NAD Skin: warm, dry, intact, no rashes or lesions HEENT: NC/AT Heart: +S1/S2, regular with ectopy, no m/r/g Lungs: equal air entry bilaterally, no rales/rhonchi/wheezes Ext: warm, 2+ pulses in UE/LE bilaterally, no clubbing/cyanosis, trace bilateral LE edema Neuro: nonfocal, patient AA&O x 4 Results & Data Results & Data Vital Signs (Past 12 Hours) Vital Signs Temp Pulse Resp BP Pulse Ox O2 Del Method 02/01/24 21:00 Room Air 02/01/24 19:57 37.0 C 54 L 18 154/54 H 96 Room Air PG Care Time/CCT Total # of Minutes Spent Total Time Spent with Patient: Total time spent is greater than 50% in coordination of care (as documented) at patient's floor/unit and/or counseling patient: Coding Level of Care Code 63449 SUB INP/OBS CARE 2/35MIN Diagnoses Acute cholecystitis K81.0 CAD (coronary artery disease) I25.10 ESRD (end stage renal disease) N18.6
[2024-02-02] MEDS ORDERED: SODIUM CHLORIDE 0.9% 1,000 ML IV PRN (07:00)
[2024-02-02 08:13] LABS: Hematocrit (blood only) 28.9 % (37.0-47.0); Hemoglobin 9.8 g/dl (12.0-16.0); Mean Corpuscular Hemoglobin 33.1 pg (25.0-34.0); Mean Corpuscular Hgb Conc 33.9 g/dL (32.0-36.0); Mean Corpuscular Volume 97.6 fL (80.0-100.0); Mean Platelet Volume 10.8 fL (9.4-12.4); Platelet Count 196 K/uL (130-400); RDW Coefficient of Variation 14.6 % (11.5-14.5); RDW Standard Deviation 52.2 fL (36.4-46.3); Red Blood Count 2.96 M/uL (4.20-5.40); White Blood Count 8.25 K/ul (4.8-10.8)
[2024-02-02 08:19] LABS: BUN Creatinine Ratio 4.7 (10-20); Calcium 8.6 mg/dl (8.6-10.3); Creatinine Clr Calc Pharmacy 6.8 ml/min
--- NOTE | 2024-02-02 08:29 | Hospitalist Progress Note ---
Date of Service February 02, 2024 Assessment & Plan (1) Acute cholecystitis: Plan: 73yo female with history of CAD with recent LIBRA stent placement to mid-LAD in May 2023, ESRD on PD and DM presenting with RUQ abdominal pain, subjective fever/chills and nausea/vomiting. Patient found to have acute cholecystitis. CT as above with marked cholelithiasis with gallbladder distention and wall thickening. No ductal dilatation s/p lap cj 01/27 held Plavix/ASA 81mg patient with LIBRA placed to mid-LAD on 06/23/23, resumed 02/02 Patient continues to be weak on 01/31 and would benefit from rehab. (2) CAD (coronary artery disease): Plan: Patient denies chest pain. She has CAD with stent placement. Follows with Dr. Kumar will restart antiplatelet meds -Continue Metoprolol 50mg po qAM -Continue Crestor 40mg po qPM h/o HFpEF volume managed by iv hemodialysis until healed from cholecystectomy, approx 2 weeks, then return to PD (3) ESRD (end stage renal disease): Plan: Patient with ESRD on PD. She follows with Dr. Wing, now on IVHD will anticipate 2 weeks or so -Nephrology consultation appreciated -Avoid nephrotoxic agents -Renal dosing where needed Anemia: Likely secondary to ESRD, possibleacute blood loss anemia. required 2 PRBC overnight of 01/29-01/30 Hemoglobin now stable. no signs of active GI bleed. Plan Chronic Medical Conditions: Anxiety - -Continue Buspirone PRN Diabetes -Lantus 7u BID with ISS -Goal blood sugar 110 - 140 Ppx - SCDs to bilateral LE Code - Full per discussion with patient disposition considering [facility] Admission and Anticipated Discharge Date Admission Date: January 27, 2024 Subjective pt was seen in dialysis after completing session was feeling improved, still weakened mostly noting le weakness is willing to go to rehab will need to coordinate for dialysis access, Plan is for her to remain on IHD x 2 weeks to allow her to fully recover from her surg shadia. She will then transition back to NCCPD therapy. Physical Exam Physical Exam: awake and appropriate, abd is soft and only with mild tenderness, has normal active bowel sounds Results & Data Results & Data Vital Signs (Past 12 Hours) Vital Signs Temp Pulse Resp BP Pulse Ox O2 Del Method 02/02/24 07:40 Room Air 02/02/24 07:25 98.4 F 74 16 184/94 H 97 Room Air 02/01/24 21:00 Room Air Laboratory Results review cbc review chemstry PG Care Time/CCT Total # of Minutes Spent Total Time Spent with Patient: Total time spent is greater than 50% in coordination of care (as documented) at patient's floor/unit and/or counseling patient: Coding Level of Care Code 04406 SUB INP/OBS CARE 3/50MIN Diagnoses Acute cholecystitis K81.0 CAD (coronary artery disease) I25.10 ESRD (end stage renal disease) N18.6
--- NOTE | 2024-02-02 08:46 | Nephrology Progress Note ---
Date of Service February 02, 2024 Assessment & Plan (1) ESRD (end stage renal disease): Plan: * ESKD due to DKD/HTN. * Patient had been on an NCCPD therapy (4 exchanges, 2.5% Delflex, 2.2 L fill volume, 90-minute dwell, EDW 76 kg) * Patient transition from NCCPD to HD 01/27/2024 due to cholecystitis requiring cholecystectomy. Plan is for her to remain on IHD x 2 weeks to allow her to fully recover from her surgery. She will then transition back to NCCPD therapy. * Will provide HD today using low dose heparin to avoid dialyzer clotting. Orders have been placed in EMR and HD RN notified (2) Anemia: Plan: * Transfused 2 units PRBC 01/31/24 * Hgb improved to 9.8 this morning. Will monitor (3) Cholecystitis: Plan: * s/p lap cj 01/28/24. Tolerated surgery well. Diet is being advanced. Remains on Zosyn. (4) Hypertension: Plan: * BP has been variable * Continue metoprolol, furosemide (5) Weakness: Plan: * Having mild abdominal pain and weakness following cholecystectomy * PT evaluation has been ordered * Patient considering inpatient PT following hospitalization to ensure she can perform ADL's before returning home Admission and Anticipated Discharge Date Admission Date: January 27, 2024 Subjective Ms. Guthrie was evaluated in her hospital room this morning. She is tolerating an oral diet but remains weak. Ms. Guthrie's HD was stopped after 1 hour yesterday due to AVF infiltration. She denies any swelling or pain involving her AVF today and is agreeable to a full treatment this morning Review of Systems Constitutional: no fever Eyes: no problem reported Ear, Nose, Mouth, Throat: no problem reported Respiratory: no cough and no dyspnea Cardiovascular: no chest pain Gastrointestinal: no nausea and no vomiting Genitourinary: no dysuria and no hematuria Integumentary: no rash Neurologic: no problem reported Physical Exam Constitutional: not in distress Eyes: PERRL, conjunctivae normal, anicteric sclerae ENMT: external ear and nose normal, oropharynx normal Neck: trachea midline, no thyromegaly Respiratory: normal respiratory effort, lungs clear to auscultation Cardiovascular: RRR, no murmur, no edema Gastrointestinal (Abdomen): normal bowel sounds, soft, nontender, no hepatosplenomegaly Musculoskeletal: Extremities: no cyanosis and no clubbing Skin: no rashes, warm and dry Neurologic: awake; not confused Results & Data Vital Signs (Past 12 Hours) Vital Signs Temp Pulse Resp BP Pulse Ox O2 Del Method 02/02/24 07:40 Room Air 02/02/24 07:25 36.9 C 74 16 184/94 H 97 Room Air 02/01/24 21:00 Room Air Laboratory Results Laboratory Results - last 24 hr 02/01/24 02/01/24 02/01/24 07:41 12:32 16:34 WBC RBC Hgb Hct MCV MCH MCHC RDW Std Deviation RDW Coeff of Poornima Plt Count MPV Sodium 134 L Potassium 3.9 Chloride 99 Carbon Dioxide 23 Anion Gap 12 H BUN 45 H Creatinine 8.38 H* D Est Cr Clr Drug Dosing 5.7 eGFR 4.58 BUN/Creatinine Ratio 5.4 L Glucose 107 H POC Glucose 115 H 120 H Calcium 8.3 L 02/01/24 02/02/24 02/02/24 20:30 07:30 07:41 WBC 8.25 RBC 2.96 L Hgb 9.8 L Hct 28.9 L MCV 97.6 MCH 33.1 MCHC 33.9 RDW Std Deviation 52.2 H RDW Coeff of Poornima 14.6 H Plt Count 196 MPV 10.8 Sodium 135 L Potassium 4.0 Chloride 100 Carbon Dioxide 24 Anion Gap 11 BUN 35 H Creatinine 7.49 H* D Est Cr Clr Drug Dosing 6.8 eGFR 5.24 BUN/Creatinine Ratio 4.7 L Glucose 159 H POC Glucose 156 H 148 H Calcium 8.6 PG Care Time/CCT Total # of Minutes Spent Total Time Spent with Patient: Total time spent is greater than 50% in coordination of care (as documented) at patient's floor/unit and/or counseling patient: Coding Level of Care Code 62503 SUB INP/OBS CARE 3/50MIN Diagnoses ESRD (end stage renal disease) N18.6 Anemia D64.9 Cholecystitis K81.9 Essential hypertension I10 Hypertension type: essential hypertension Weakness R53.1 (4) Hypertension Hypertension type: essential hypertension Qualified Code(s): I10 - Essential (primary) hypertension
[2024-02-02] MEDS: HEPARIN SOD (PORCINE) 1000 UNIT/ML IV SCH (09:45)
[2024-02-02] MEDS: HEPARIN SOD (PORCINE) 1000 UNIT/ML IV ONE (09:45)
[2024-02-02] MEDS: CLOPIDOGREL BISULFATE 75 MG TAB PO SCH (13:23)
[2024-02-02] MEDS: ASPIRIN 81 MG CHEW PO SCH (13:23)
[2024-02-03] MEDS ORDERED: SODIUM CHLORIDE 0.9% 1,000 ML IV PRN (07:00)
[2024-02-03] MEDS ORDERED: cloNIDine HCL 0.1 MG TAB PO PRN (08:35)
--- NOTE | 2024-02-03 08:51 | Nephrology Progress Note ---
Date of Service February 03, 2024 Assessment & Plan (1) ESRD (end stage renal disease): Plan: * ESKD due to DKD/HTN. * Patient had been on an NCCPD therapy (4 exchanges, 2.5% Delflex, 2.2 L fill volume, 90-minute dwell, EDW 76 kg) * Patient transition from NCCPD to HD 01/27/2024 due to cholecystitis requiring cholecystectomy. Plan is for her to remain on IHD x 2 weeks to allow her to fully recover from her surgery. She will then transition back to NCCPD therapy. * Will provide 2 hr HD tx today in order to resume MWF schedule. Orders have been placed in EMR and HD RN notified (2) Anemia: Plan: * Transfused 2 units PRBC 01/31/24 * Hgb improved to 9.8 this morning. Will monitor (3) Cholecystitis: Plan: * s/p lap cj 01/28/24. Tolerated surgery well. Diet is being advanced. Remains on Zosyn. (4) Hypertension: Plan: * BP has been variable * Continue metoprolol, furosemide (5) Weakness: Plan: * Having mild abdominal pain and weakness following cholecystectomy * PT evaluation recommends rehab stay following hospitalization to ensure she can perform ADL's before returning home Admission and Anticipated Discharge Date Admission Date: January 27, 2024 Subjective Ms. Guthrie was evaluated in her hospital room this morning. She is agreeable to short HD today to resume her MWF schedule. Ms. Guthrie did participate in PT yesterday but notes that she remains weak and will likely need a stay at a rehab facility before returning home Review of Systems Constitutional: no fever Eyes: no problem reported Ear, Nose, Mouth, Throat: no problem reported Respiratory: no cough and no dyspnea Cardiovascular: no chest pain Gastrointestinal: no nausea and no vomiting Genitourinary: no dysuria and no hematuria Integumentary: no rash Neurologic: no problem reported Physical Exam Constitutional: not in distress Eyes: PERRL, conjunctivae normal, anicteric sclerae ENMT: external ear and nose normal, oropharynx normal Neck: trachea midline, no thyromegaly Respiratory: normal respiratory effort, lungs clear to auscultation Cardiovascular: RRR, no murmur, no edema Gastrointestinal (Abdomen): normal bowel sounds, soft, nontender, no hepatosplenomegaly Musculoskeletal: Extremities: no cyanosis and no clubbing Skin: no rashes, warm and dry Neurologic: awake; not confused Results & Data Vital Signs (Past 12 Hours) Vital Signs Temp Pulse Resp BP Pulse Ox O2 Del Method 02/03/24 07:41 192/84 H 02/03/24 07:04 36.9 C 76 16 188/84 H 99 Room Air 02/03/24 05:22 77 18 208/74 H 96 Room Air 02/03/24 02:28 197/81 H 97 Room Air 02/02/24 21:23 36.6 C 82 18 208/75 H 96 Room Air Laboratory Results Laboratory Results - last 24 hr 02/02/24 02/02/24 02/02/24 12:55 16:48 20:24 POC Glucose 118 H 183 H 182 H 02/03/24 07:31 POC Glucose 152 H PG Care Time/CCT Total # of Minutes Spent Total Time Spent with Patient: Total time spent is greater than 50% in coordination of care (as documented) at patient's floor/unit and/or counseling patient: Coding Level of Care Code 99335 SUB INP/OBS CARE 3/50MIN Diagnoses ESRD (end stage renal disease) N18.6 Anemia D64.9 Cholecystitis K81.9 Essential hypertension I10 Hypertension type: essential hypertension Weakness R53.1 (4) Hypertension Hypertension type: essential hypertension Qualified Code(s): I10 - Essential (primary) hypertension
[2024-02-03] MEDS: HEPARIN SOD (PORCINE) 1000 UNIT/ML IV ONE (15:16)
--- NOTE | 2024-02-03 17:15 | Hospitalist Progress Note ---
Date of Service February 03, 2024 Assessment & Plan (1) Acute cholecystitis: Plan: 73yo female with history of CAD with recent LIBRA stent placement to mid-LAD in May 2023, ESRD on PD and DM presenting with RUQ abdominal pain, subjective fever/chills and nausea/vomiting. Patient found to have acute cholecystitis. CT as above with marked cholelithiasis with gallbladder distention and wall thickening. No ductal dilatation s/p lap cj 01/27 held Plavix/ASA 81mg patient with LIBRA placed to mid-LAD on 06/23/23, resumed 02/02 Patient continues to be weak and would benefit from rehab. (2) CAD (coronary artery disease): Plan: stable She has CAD with stent placement. Follows with Dr. Kumar restarted antiplatelet meds -Continue Metoprolol 50mg po qAM -Continue Crestor 40mg po qPM h/o HFpEF volume managed by iv hemodialysis until healed from cholecystectomy, approx 2 weeks, then return to PD (3) ESRD (end stage renal disease): Plan: Patient with ESRD on PD. She follows with Dr. Wing, now on IVHD will anticipate 2 weeks or so -Nephrology consultation appreciated -Avoid nephrotoxic agents -Renal dosing where needed Anemia: stable after transfusion Likely secondary to ESRD, possible acute blood loss anemia. required 2 PRBC overnight of 01/29-01/30 Hemoglobin now stable. no signs of active GI bleed. Plan Chronic Medical Conditions: Anxiety - -Continue Buspirone PRN Diabetes -Lantus 7u BID with ISS -Goal blood sugar 110 - 140 Ppx - SCDs to bilateral LE Code - Full per discussion with patient disposition considering [facility] Admission and Anticipated Discharge Date Admission Date: January 27, 2024 Subjective pt was seen post dialysis does look improved no immediate distress other than weakness overall Physical Exam Physical Exam: awake and appropriate, abd is soft and only with mild tenderness, has normal active bowel sounds Results & Data Results & Data Vital Signs (Past 12 Hours) Vital Signs Temp Pulse Pulse Pulse Resp BP BP 02/03/24 14:25 97.9 F 84 18 186/80 H 02/03/24 12:00 97.5 F L 80 158/72 H 02/03/24 11:35 80 158/72 H 02/03/24 11:30 80 110/70 02/03/24 11:00 81 110/59 L 02/03/24 10:30 71 136/100 02/03/24 10:00 83 148/70 H 02/03/24 09:35 79 178/89 H 02/03/24 09:25 98.2 F 81 02/03/24 07:41 192/84 H 02/03/24 07:05 02/03/24 07:04 98.4 F 76 16 188/84 H 02/03/24 05:22 77 18 208/74 H Pulse Ox O2 Del Method 02/03/24 14:25 93 Room Air 02/03/24 12:00 02/03/24 11:35 02/03/24 11:30 02/03/24 11:00 02/03/24 10:30 02/03/24 10:00 02/03/24 09:35 02/03/24 09:25 02/03/24 07:41 02/03/24 07:05 Room Air 02/03/24 07:04 99 Room Air 02/03/24 05:22 96 Room Air PG Care Time/CCT Total # of Minutes Spent Total Time Spent with Patient: Total time spent is greater than 50% in coordination of care (as documented) at patient's floor/unit and/or counseling patient: Coding Level of Care Code 27386 SUB INP/OBS CARE 2MIN Diagnoses Acute cholecystitis K81.0 CAD (coronary artery disease) I25.10 ESRD (end stage renal disease) N18.6
[2024-02-03] MEDS: METOPROLOL SUCC 25MG EXT REL TAB PO STA (21:11)
[2024-02-04 06:23] LABS: Hematocrit (blood only) 28.3 % (37.0-47.0); Hemoglobin 9.5 g/dl (12.0-16.0); Mean Corpuscular Hemoglobin 33.2 pg (25.0-34.0); Mean Corpuscular Hgb Conc 33.6 g/dL (32.0-36.0); Mean Platelet Volume 10.4 fL (9.4-12.4); Platelet Count 201 K/uL (130-400); RDW Coefficient of Variation 13.8 % (11.5-14.5); RDW Standard Deviation 50.6 fL (36.4-46.3); Red Blood Count 2.86 M/uL (4.20-5.40); White Blood Count 8.02 K/ul (4.8-10.8)
[2024-02-04 06:45] LABS: Albumin Globulin Ratio 0.8 (0.9-2); Albumin Level 2.2 gm/dl (3.4-5.0); BUN Creatinine Ratio 3.5 (10-20); Bilirubin,Total 0.5 mg/dl (0.2-1.0); Calcium 8.6 mg/dl (8.6-10.3); Creatinine Clr Calc Pharmacy 10.4 ml/min; Globulin 2.9 gm/dl (2.5-4.0); Potassium 3.5 mmol/L (3.5-5.1); Total Protein 5.1 gm/dl (6.0-8.3)
--- NOTE | 2024-02-04 09:08 | Nephrology Progress Note ---
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 * Patient had been on an NCCPD therapy (4 exchanges, 2.5% Delflex, 2.2 L fill volume, 90-minute dwell, EDW 76 kg) * Patient transition from NCCPD to HD 01/27/2024 due to cholecystitis requiring cholecystectomy. Plan is for her to remain on IHD x 2 weeks to allow her to fully recover from her surgery. She will then transition back to NCCPD therapy. * Volume status and electrolyte balance are acceptable. No acute indication for HD today * Will provide HD tomorrow if patient remains hospitalized * I have phoned orders to [facility] dialysis in case patient is transferred later today (2) Anemia: Plan: * Transfused 2 units PRBC 01/31/24 * Hgb improved to 9.8 this morning. Will monitor (3) Cholecystitis: Plan: * s/p lap cj 01/28/24. Tolerated surgery well. Diet is being advanced. Remains on Zosyn. (4) Hypertension: Plan: * BP has been variable * Continue metoprolol, furosemide (5) Weakness: Plan: * Having mild abdominal pain and weakness following cholecystectomy * PT evaluation recommends rehab stay following hospitalization to ensure she can perform ADL's before returning home Admission and Anticipated Discharge Date Admission Date: January 27, 2024 Subjective Ms. Guthrie was evaluated in her hospital room this morning. She was dialyzed yesterday for 2 hours without complication. She hopes to transfer to rehab facility soon. She voices no new medical concerns Review of Systems Constitutional: no fever Eyes: no problem reported Ear, Nose, Mouth, Throat: no problem reported Respiratory: no cough and no dyspnea Cardiovascular: no chest pain Gastrointestinal: no nausea and no vomiting Genitourinary: no dysuria and no hematuria Integumentary: no rash Neurologic: no problem reported Physical Exam Constitutional: not in distress Eyes: PERRL, conjunctivae normal, anicteric sclerae ENMT: external ear and nose normal, oropharynx normal Neck: trachea midline, no thyromegaly Respiratory: normal respiratory effort, lungs clear to auscultation Cardiovascular: RRR, no murmur, no edema Gastrointestinal (Abdomen): normal bowel sounds, soft, nontender, no hepatosplenomegaly Musculoskeletal: Extremities: no cyanosis and no clubbing Skin: no rashes, warm and dry Neurologic: awake; not confused Results & Data Vital Signs (Past 12 Hours) Vital Signs Temp Pulse Resp BP Pulse Ox O2 Del Method 02/04/24 07:54 36.8 C 78 18 162/62 H 97 Room Air 02/03/24 22:35 135/55 L 02/03/24 21:10 Room Air Laboratory Results Laboratory Results - last 24 hr 02/03/24 02/03/24 02/03/24 12:13 16:45 20:12 WBC RBC Hgb Hct MCV MCH MCHC RDW Std Deviation RDW Coeff of Poornima Plt Count MPV Sodium Potassium Chloride Carbon Dioxide Anion Gap BUN Creatinine Est Cr Clr Drug Dosing eGFR BUN/Creatinine Ratio Glucose POC Glucose 100 H 182 H 203 H Calcium Total Bilirubin AST ALT Alkaline Phosphatase Total Protein Albumin Globulin Albumin/Globulin Ratio 02/04/24 02/04/24 05:37 07:56 WBC 8.02 RBC 2.86 L Hgb 9.5 L Hct 28.3 L MCV 99.0 MCH 33.2 MCHC 33.6 RDW Std Deviation 50.6 H RDW Coeff of Poornima 13.8 Plt Count 201 MPV 10.4 Sodium 136 Potassium 3.5 Chloride 101 Carbon Dioxide 26 Anion Gap 9 BUN 17 Creatinine 4.82 H* D Est Cr Clr Drug Dosing 10.4 eGFR 8.90 BUN/Creatinine Ratio 3.5 L Glucose 126 H POC Glucose 131 H Calcium 8.6 Total Bilirubin 0.5 AST 66 H ALT 104 H Alkaline Phosphatase 105 H Total Protein 5.1 L Albumin 2.2 L Globulin 2.9 Albumin/Globulin Ratio 0.8 L PG Care Time/CCT Total # of Minutes Spent Total Time Spent with Patient: Total time spent is greater than 50% in coordination of care (as documented) at patient's floor/unit and/or counseling patient: Coding Level of Care Code 49386 SUB INP/OBS CARE 3/50MIN Diagnoses ESRD (end stage renal disease) N18.6 Anemia D64.9 Cholecystitis K81.9 Essential hypertension I10 Hypertension type: essential hypertension Weakness R53.1 (4) Hypertension Hypertension type: essential hypertension Qualified Code(s): I10 - Essential (primary) hypertension
--- NOTE | 2024-02-04 16:13 | Hospitalist Progress Note ---
Date of Service February 04, 2024 Assessment & Plan (1) Acute cholecystitis: Plan: 73yo female with history of CAD with recent LIBRA stent placement to mid-LAD in May 2023, ESRD on PD and DM presenting with RUQ abdominal pain, subjective fever/chills and nausea/vomiting. Patient found to have acute cholecystitis. CT as above with marked cholelithiasis with gallbladder distention and wall thickening. No ductal dilatation s/p lap cj 01/27 held Plavix/ASA 81mg patient with LIBRA placed to mid-LAD on 06/23/23, resumed 02/02 Patient continues to be weak and would benefit from rehab. (2) CAD (coronary artery disease): Plan: stable She has CAD with stent placement. Follows with Dr. Kumar restarted antiplatelet meds -Continue Metoprolol 50mg po qAM -Continue Crestor 40mg po qPM h/o HFpEF volume managed by iv hemodialysis until healed from cholecystectomy, approx 2 weeks, then return to PD (3) ESRD (end stage renal disease): Plan: Patient with ESRD on PD. She follows with Dr. Wing, now on IVHD will anticipate 2 weeks or so -Nephrology consultation appreciated -Avoid nephrotoxic agents -Renal dosing where needed Anemia: stable after transfusion Likely secondary to ESRD, possible acute blood loss anemia. required 2 PRBC overnight of 01/29-01/30 Hemoglobin now stable. no signs of active GI bleed. Plan Chronic Medical Conditions: Anxiety - -Continue Buspirone PRN Diabetes -Lantus 7u BID with ISS -Goal blood sugar 110 - 140 Ppx - SCDs to bilateral LE Code - Full per discussion with patient disposition considering [facility] Admission and Anticipated Discharge Date Admission Date: January 27, 2024 Subjective pt has no distress abdominal pain is improved Physical Exam Physical Exam: awake and appropriate, abd is soft and only with mild tenderness, has normal active bowel sounds Results & Data Results & Data Vital Signs (Past 12 Hours) Vital Signs Temp Pulse Resp BP Pulse Ox O2 Del Method 02/04/24 15:05 98.2 F 75 14 154/74 H 97 Room Air 02/04/24 07:54 98.2 F 78 18 162/62 H 97 Room Air Laboratory Results review cbc review chemistry PG Care Time/CCT Total # of Minutes Spent Total Time Spent with Patient: Total time spent is greater than 50% in coordination of care (as documented) at patient's floor/unit and/or counseling patient: Coding Level of Care Code 08548 SUB INP/OBS CARE Diagnoses Acute cholecystitis K81.0 CAD (coronary artery disease) I25.10 ESRD (end stage renal disease) N18.6
[2024-02-05] MEDS ORDERED: SODIUM CHLORIDE 0.9% 1,000 ML IV PRN (07:00)
--- NOTE | 2024-02-05 08:59 | Nephrology Progress Note ---
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 * Patient had been on an NCCPD therapy (4 exchanges, 2.5% Delflex, 2.2 L fill volume, 90-minute dwell, EDW 76 kg) * Patient transition from NCCPD to HD 01/27/2024 due to cholecystitis requiring cholecystectomy. Plan is for her to remain on IHD x 2 weeks to allow her to fully recover from her surgery. She will then transition back to NCCPD therapy. * Will provide HD today. Orders have been entered into EMR and HD RN notified * Orders have been called to [facility] dialysis in case patient is transferred this weekend (2) Anemia: Plan: * Transfused 2 units PRBC 01/31/24 * Hgb improved to 9.5 yesterday. Will monitor (3) Cholecystitis: Plan: * s/p lap cj 01/28/24. Tolerated surgery well. Diet is being advanced. Remains on Zosyn. (4) Hypertension: Plan: * BP has been variable * Continue metoprolol, furosemide (5) Weakness: Plan: * Having mild abdominal pain and weakness following cholecystectomy * PT evaluation recommends rehab stay following hospitalization to ensure she can perform ADL's before returning home. Patient wishes to continue PT over weekend if she remains hospitalized Admission and Anticipated Discharge Date Admission Date: January 27, 2024 Subjective Ms. Guthrie was evaluated in her hospital room this morning. She is awaiting transfer to [facility] Ms. Guthrie c/o cough and requests cough drops. She hopes to continue PT over the weekend for strengthening Review of Systems Constitutional: no fever Eyes: no problem reported Ear, Nose, Mouth, Throat: no problem reported Respiratory: no cough and no dyspnea Cardiovascular: no chest pain Gastrointestinal: no nausea and no vomiting Genitourinary: no dysuria and no hematuria Integumentary: no rash Neurologic: no problem reported Physical Exam Constitutional: not in distress Eyes: PERRL, conjunctivae normal, anicteric sclerae ENMT: external ear and nose normal, oropharynx normal Neck: trachea midline, no thyromegaly Respiratory: normal respiratory effort, lungs clear to auscultation Cardiovascular: RRR, no murmur, no edema Gastrointestinal (Abdomen): normal bowel sounds, soft, nontender, no hepatosplenomegaly Musculoskeletal: Extremities: no cyanosis and no clubbing Skin: no rashes, warm and dry Neurologic: awake; not confused Results & Data Vital Signs (Past 12 Hours) Vital Signs Temp Pulse Resp BP Pulse Ox O2 Del Method 02/05/24 07:22 36.9 C 73 16 179/82 H 98 Room Air 02/04/24 21:55 Room Air Laboratory Results Laboratory Results - last 24 hr 02/04/24 02/04/24 02/04/24 11:43 16:48 20:52 POC Glucose 142 H 172 H 199 H 02/05/24 07:42 POC Glucose 135 H PG Care Time/CCT Total # of Minutes Spent Total Time Spent with Patient: Total time spent is greater than 50% in coordination of care (as documented) at patient's floor/unit and/or counseling patient: Coding Level of Care Code 55242 SUB INP/OBS CARE 3/50MIN Diagnoses ESRD (end stage renal disease) N18.6 Anemia D64.9 Cholecystitis K81.9 Essential hypertension I10 Hypertension type: essential hypertension Weakness R53.1 (4) Hypertension Hypertension type: essential hypertension Qualified Code(s): I10 - Essential (primary) hypertension
[2024-02-05] MEDS: HEPARIN SOD (PORCINE) 1000 UNIT/ML IV ONE (09:00)
[2024-02-05] MEDS: EPOETIN ALFA 10,000 UNITS/ML VIAL IV ONE (09:29)
[2024-02-05 12:55] LABS: Hepatitis B Surface Antibody Immune
[2024-02-05] MEDS: HEPARIN SOD (PORCINE) 1000 UNIT/ML IV SCH (14:03)
--- NOTE | 2024-02-05 15:43 | Hospitalist Progress Note ---
Date of Service February 05, 2024 Assessment & Plan (1) Acute cholecystitis: Plan: 73yo female with history of CAD with recent LIBRA stent placement to mid-LAD in May 2023, ESRD on PD and DM presenting with RUQ abdominal pain, subjective fever/chills and nausea/vomiting. Patient found to have acute cholecystitis. CT as above with marked cholelithiasis with gallbladder distention and wall thickening. No ductal dilatation s/p lap cj 01/27 held Plavix/ASA 81mg patient with LIBRA placed to mid-LAD on 06/23/23, resumed 02/02 Patient continues to be weak and would benefit from rehab. (2) CAD (coronary artery disease): Plan: stable She has CAD with stent placement. Follows with Dr. Kumar restarted antiplatelet meds -Continue Metoprolol 50mg po qAM -Continue Crestor 40mg po qPM h/o HFpEF volume managed by iv hemodialysis until healed from cholecystectomy, approx 2 weeks, then return to PD (3) ESRD (end stage renal disease): Plan: Patient with ESRD on PD. She follows with Dr. Wing, now on IVHD will anticipate 2 weeks or so -Nephrology consultation appreciated -Avoid nephrotoxic agents -Renal dosing where needed Anemia: stable after transfusion Likely secondary to ESRD, possible acute blood loss anemia. required 2 PRBC overnight of 01/29-01/30 Hemoglobin now stable. no signs of active GI bleed. Plan Chronic Medical Conditions: Anxiety - -Continue Buspirone PRN Diabetes -Lantus 7u BID with ISS -Goal blood sugar 110 - 140 Ppx - SCDs to bilateral LE Code - Full per discussion with patient disposition considering [facility] Admission and Anticipated Discharge Date Admission Date: January 27, 2024 Subjective pt was not present on rounds due to dialysis Results & Data Results & Data Vital Signs (Past 12 Hours) Vital Signs Temp Pulse Pulse Pulse Resp BP BP 02/05/24 13:20 98.2 F 75 18 167/69 H 02/05/24 12:55 98.2 F 69 157/66 H 02/05/24 12:48 77 99/59 L 02/05/24 12:30 76 146/64 H 02/05/24 12:00 71 121/62 02/05/24 11:30 70 130/58 L 02/05/24 11:00 71 125/57 L 02/05/24 10:30 72 127/57 L 02/05/24 10:00 76 131/67 02/05/24 09:30 77 127/58 L 02/05/24 09:03 66 153/54 H 02/05/24 09:00 98.8 F 71 02/05/24 07:22 98.4 F 73 16 179/82 H Pulse Ox O2 Del Method 02/05/24 13:20 98 Room Air 02/05/24 12:55 02/05/24 12:48 02/05/24 12:30 02/05/24 12:00 02/05/24 11:30 02/05/24 11:00 02/05/24 10:30 02/05/24 10:00 02/05/24 09:30 02/05/24 09:03 02/05/24 09:00 02/05/24 07:22 98 Room Air PG Care Time/CCT Total # of Minutes Spent Total Time Spent with Patient: Total time spent is greater than 50% in coordination of care (as documented) at patient's floor/unit and/or counseling patient: Coding Level of Care Code None Diagnoses Acute cholecystitis K81.0 CAD (coronary artery disease) I25.10 ESRD (end stage renal disease) N18.6
[2024-02-05] MEDS: COUGH DROP (SUGAR FREE) LOZ 24 LOZ/1 BOX BUCCAL PRN (17:38)
--- NOTE | 2024-02-05 18:58 | Communication Note ---
Date of Service: February 05, 2024 cross coverage: asked to evaluate R fistula enlarged. pt notes bigger than it was this morning. no pain no bruising no swelling - just the area of thrill bigger than it normally is. fistula worked fine during dialysis no bruising no bleeding no soft tissue edema. fistula soft with (+) thrill. does appear bigger than avg although obviously i've not assessed her arm before -> check doppler, nothing clinically appearing alarming at this time
--- NOTE | 2024-02-06 00:02 | Ultrasound Report ---
Exam(s): US VASCULAR EXAM: US Vascular CLINICAL HISTORY: Reason for exam: enlarging fistula. TECHNIQUE: Real-time ultrasound of the right upper extremity fistula with image documentation. COMPARISON: No relevant prior studies available. FINDINGS: There is a fistula in the proximal right upper extremity, right basilic vein to brachial artery. The fistula is patent with elevated velocities at fistula/brachial artery anastomosis, at least 500 cm/s. There is a heterogeneous collection with edema in the right lower arm measuring 1.2 x 0.8 x 1.2 cm that is nonspecific, possible hematoma. No drainable abscess or communication with a vessel. IMPRESSION: 1. 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 2. Small, heterogeneous soft tissue mass, nonspecific, probable hematoma. Electronically signed by: Jane Fortune M.D. 02/06/24 00:01 AM
[2024-02-06 05:54] LABS: Hematocrit (blood only) 28.3 % (37.0-47.0); Hemoglobin 9.3 g/dl (12.0-16.0); Mean Corpuscular Hemoglobin 32.9 pg (25.0-34.0); Mean Corpuscular Hgb Conc 32.9 g/dL (32.0-36.0); Mean Platelet Volume 10.3 fL (9.4-12.4); Platelet Count 207 K/uL (130-400); RDW Coefficient of Variation 13.6 % (11.5-14.5); RDW Standard Deviation 49.9 fL (36.4-46.3); Red Blood Count 2.83 M/uL (4.20-5.40); White Blood Count 10.04 K/ul (4.8-10.8)
[2024-02-06 06:11] LABS: BUN Creatinine Ratio 3.8 (10-20); Calcium 8.4 mg/dl (8.6-10.3); Creatinine Clr Calc Pharmacy 10.8 ml/min; Potassium 3.6 mmol/L (3.5-5.1)
--- NOTE | 2024-02-06 10:21 | Nephrology Progress Note ---
Date of Service February 06, 2024 Assessment & Plan (1) ESRD (end stage renal disease): (2) Hypertension: (3) Weakness: (4) Acute cholecystitis: (5) Anemia: Plan 73-year-old female with end-stage kidney disease, has been on renal dialysis, admitted with acute cholecystitis and had cholecystectomy. Recovered well from surgery. Hemoglobin was low, improved and stable. Waiting for rehab discharge. PD has been on hold and currently continuing on hemodialysis. AV fistula Doppler was notable for stenosis, hematoma or an large aneurysm. Will Had hemodialysis yesterday. --Will change diet to regular diet as she never had problem with hyperkalemia and has been having difficulty with restricted dietary choices. -- Okay to be discharged when bed available at [facility]. --AV fistula stenosis and aneurysm can be addressed as an outpatient with follow-up with vascular surgery. Admission and Anticipated Discharge Date Admission Date: January 27, 2024 Roman Dyson was seen and evaluated this morning. Overall she feels well, denies any abdominal pain shortness of breath or chest pain. Blood pressure high but to volume status, stable. No respiratory distress. Electrolyte acceptable. Had hemodialysis yesterday. Waiting to be discharged to [facility]. Review of Systems Review of Systems: Detail review of system was otherwise unremarkable. Physical Exam Constitutional: WD/WN, vitals as above no acute distress Respiratory: normal respiratory effort; no respiratory distress Auscultation: lungs clear to auscultation bilaterally Cardiovascular: Rate/Rhythm: regular rate and regular rhythm Extremities: + AV fistula (with bruit, aneurysm); no edema Neurologic: no focal motor deficits Psychiatric: Orientation: alert and oriented x 3 Results & Data Vital Signs (Past 12 Hours) Vital Signs Temp Pulse Resp BP Pulse Ox O2 Del Method 02/06/24 07:47 37.1 C 72 16 182/85 H 97 Room Air PG Care Time/CCT Total # of Minutes Spent Total Time Spent with Patient: Total time spent is greater than 50% in coordination of care (as documented) at patient's floor/unit and/or counseling patient: Coding Level of Care Code 21252 SUB INP/OBS CARE 2/35MIN Diagnoses ESRD (end stage renal disease) N18.6 Essential hypertension I10 Hypertension type: essential hypertension Weakness R53.1 Acute cholecystitis K81.0 Anemia D64.9 (2) Hypertension Hypertension type: essential hypertension Qualified Code(s): I10 - Essential (primary) hypertension
--- NOTE | 2024-02-06 10:48 | Hospitalist Progress Note ---
Date of Service February 06, 2024 Assessment & Plan (1) Acute cholecystitis: Plan: 73yo female with history of CAD with recent LIBRA stent placement to mid-LAD in May 2023, ESRD on PD and DM presenting with RUQ abdominal pain, subjective fever/chills and nausea/vomiting. Patient found to have acute cholecystitis. CT as above with marked cholelithiasis with gallbladder distention and wall thickening. No ductal dilatation s/p lap cj 01/27 resumed 02/02 Plavix/ASA 81mg patient with LIBRA placed to mid-LAD on 06/23/23, Patient continues to be weak and would benefit from rehab. (2) CAD (coronary artery disease): Plan: stable She has CAD with stent placement. Follows with Dr. Kumar restarted antiplatelet meds -Continue Metoprolol 50mg po qAM -Continue Crestor 40mg po qPM h/o HFpEF volume managed by iv hemodialysis until healed from cholecystectomy, approx 2 weeks, then return to PD (3) ESRD (end stage renal disease): Plan: Patient with ESRD on PD. She follows with Dr. Wing, now on IVHD will anticipate 2 weeks or so -Nephrology consultation appreciated -Avoid nephrotoxic agents -Renal dosing where needed Anemia: stable after transfusion Likely secondary to ESRD, possible acute blood loss anemia. required 2 PRBC overnight of 01/29-01/30 Hemoglobin now stable. no signs of active GI bleed. Plan Chronic Medical Conditions: Anxiety - -Continue Buspirone PRN Diabetes -Lantus 7u BID with ISS -Goal blood sugar 110 - 140 Ppx - SCDs to bilateral LE Code - Full per discussion with patient disposition considering [facility] Admission and Anticipated Discharge Date Admission Date: January 27, 2024 Subjective pt is looking forward to going to rehab 02/06 has minor discomfort at AV fistulae hematoma on right inner arm near elbow u/s suggests fluid collection, clinicaly is likely a hematoma Physical Exam Physical Exam: awake and appropriate, abd is soft and only with mild tenderness, has normal active bowel sounds right arm hematoma apporx 1x 1.5 cm, not warm or tender Results & Data Results & Data Vital Signs (Past 12 Hours) Vital Signs Temp Pulse Resp BP Pulse Ox O2 Del Method 02/06/24 07:47 98.8 F 72 16 182/85 H 97 Room Air Laboratory Results review cbc review chemistry review hep b s ab- immune PG Care Time/CCT Total # of Minutes Spent Total Time Spent with Patient: Total time spent is greater than 50% in coordination of care (as documented) at patient's floor/unit and/or counseling patient: Coding Level of Care Code 94617 SUB INP/OBS CARE 2/35MIN Diagnoses Acute cholecystitis K81.0 CAD (coronary artery disease) I25.10 ESRD (end stage renal disease) N18.6
[2024-02-07 07:27] VITALS: TEMP 98.2
--- NOTE | 2024-02-07 09:49 | Nephrology Progress Note ---
Date of Service February 07, 2024 Assessment & Plan (1) ESRD (end stage renal disease): (2) Hypertension: (3) Weakness: (4) Acute cholecystitis: (5) Anemia: Plan 73-year-old female with end-stage kidney disease, has been on renal dialysis, admitted with acute cholecystitis and had cholecystectomy. Recovered well from surgery. Hemoglobin was low, improved and stable. Waiting for rehab discharge. PD has been on hold and currently continuing on hemodialysis. AV fistula Doppler was notable for stenosis, hematoma or an large aneurysm. Will Had hemodialysis Thursday. Overall doing well, clinically stable. -- Okay to be discharged to [facility]. --AV fistula stenosis and aneurysm can be addressed as an outpatient with follow-up with vascular surgery. Admission and Anticipated Discharge Date Admission Date: January 27, 2024 Roman Dyson was evaluated this morning. Overall she feels well, asymptomatic except occasional cough. Blood pressure well-controlled, volume status acceptable. Feels ready to be discharged and anxious to leave the hospital. Review of Systems Review of Systems: Detail review of system was otherwise unremarkable. Physical Exam Constitutional: WD/WN, vitals as above no acute distress Respiratory: normal respiratory effort; no respiratory distress Auscultation: + crackles and + wheezes Cardiovascular: Rate/Rhythm: regular rate and regular rhythm Extremities: + AV fistula (with bruit, aneurysm); no edema Neurologic: no focal motor deficits Psychiatric: Orientation: alert and oriented x 3 Results & Data Vital Signs (Past 12 Hours) Vital Signs Temp Pulse Resp BP Pulse Ox O2 Del Method 02/07/24 07:24 36.8 C 72 16 130/74 97 Room Air PG Care Time/CCT Total # of Minutes Spent Total Time Spent with Patient: Total time spent is greater than 50% in coordination of care (as documented) at patient's floor/unit and/or counseling patient: Coding Level of Care Code 63724 SUB INP/OBS CARE 25MIN Diagnoses ESRD (end stage renal disease) N18.6 Essential hypertension I10 Hypertension type: essential hypertension Weakness R53.1 Acute cholecystitis K81.0 Anemia D64.9 (2) Hypertension Hypertension type: essential hypertension Qualified Code(s): I10 - Essential (primary) hypertension
[2024-02-07 11:36] VITALS: BP 140/60; PULSE 71; RESP 18; O2SAT 100
--- NOTE | 2024-02-07 14:47 | Discharge Summary ---
Discharge Summary Date of Service February 07, 2024 Principal Dx & Hospital Course #1 = Principal Diagnosis (1) Acute cholecystitis: 73yo female with history of CAD with recent LIBRA stent placement to mid-LAD in May 2023, ESRD on PD and DM presenting with RUQ abdominal pain, subjective fever/chills and nausea/vomiting. Patient found to have acute cholecystitis. CT as above with marked cholelithiasis with gallbladder distention and wall thickening. No ductal dilatation s/p lap cj 01/27 resumed 02/02 Plavix/ASA 81mg patient with LIBRA placed to mid-LAD on 06/23/23, Patient continues to be weak and would benefit from rehab. Discharged to [facility] 02/06. (2) CAD (coronary artery disease): stable She has CAD with stent placement. Follows with Dr. Kumar -Continue aspirin and plavix -Continue Metoprolol 50mg po qAM -Continue Crestor 40mg po qPM h/o HFpEF volume managed by iv hemodialysis until healed from cholecystectomy, approx 2 weeks, then return to PD (3) ESRD (end stage renal disease): Patient with ESRD on PD. She follows with Dr. Wing, now on IVHD will anticipate 2 weeks or so -Nephrology consultation appreciated -Avoid nephrotoxic agents -Renal dosing where needed Anemia: stable after transfusion Likely secondary to ESRD, possible acute blood loss anemia. required 2 PRBC overnight of 01/29-01/30 Hemoglobin now stable. no signs of active GI bleed. Plan Chronic Medical Conditions: Anxiety - -Continue Buspirone PRN Diabetes -Lantus 7u BID with ISS -Goal blood sugar 110 - 140 Ppx - SCDs to bilateral LE Code - Full per discussion with patient disposition considering [facility] Notes For Next Care Provider Medication Changes From Visit Decreased metoprolol to 25 mg QAM Lantus and NovoLog insulin Admission HPI Per Admitting Provider Margaux Guthrie is a pleasant 73yo female with history of CAD s/p NSTEMI with LIBRA placed to the mid-LAD on 06/23/23, ESRD on Peritoneal Dialysis amd known gallstones presenting with RUQ abdominal pain as well as some subjective fevers and chills. Patient reports that over the last month she has been having fairly frequent episodes of vomiting. Yesterday she had a protein bowl to eat then developed vomiting, diarrhea and RUQ abdominal pain. No chest pain, palpitations, cough, SOB. Patient still makes a small amount of urine - no complaints. In the ER she is afebrile, hypertensive otherwise HD stable Still with RUQ abdominal pain, nausea has resolved ER Course: Zosyn 4.5gm Morphine NSS x 500mL Zofran 4mg IV Morphine 4mg IV x 2 Labetalol 10mg IV Discharge Exam General: No acute distress, nondiaphoretic, well-developed, well-nourished. Skin: Right arm hematoma apporx 1x 1.5 cm, not warm or tender. Dermabond noted over abdominal incisions. Cardiac: Regular rate and rhythm without murmurs gallops or rubs. Pulm: Clear to auscultation bilaterally without wheezes, rales or rhonchi. No respiratory distress. 100% on room air. Abdominal: Soft, nondistended. Minimal tenderness to palpation. Bowel sounds present. Neuro: A&O x3. No focal neurological deficits. Discharge Plan Discharge Items Patient Disposition: Transfer Inpatient Rehab Fac Reason For Visit: ACUTE CHOLECYSTITIS Discharge Diagnosis: laparoscopic cholecysectomy esrd typically on PD now on HD while healing from lap cj chronic anemia stable CAD Activity: Per Instructions section Lifting: No more than 10 pounds Bathing Comment: may shower; no soaking in tubs/pools x 2 weeks Driving/Machine Use: no driving while taking narcotics for pain Non-emergency contact: Primary Care Provider and Surgeon Call non-emergency contact if: you have any medication questions, your pain is not controlled, your pain is worsening, you have a fever, your temperature is above 101.5, your wound has increased redness, your wound has increased drainage and your wound pain has increased Follow-up/Referrals: Oseas Madrigal DO, BETHANY [Physician] - (please call to schedule follow up in clinic within 2 weeks ) Unruly Trujillo DO [Primary Care Provider] - Diet: Carb Consistent or DM2 Addtl Attending Provider Instructions: You have skin glue over your incisions called dermabond. you may shower with this on. It will tend to dissolve and fall off within a couple weeks. Do not pick at the skin glue You may purchase Tylenol over the counter if needed for additional pain control over the next few days. Take per manufacturers instructions Pending Studies at Discharge: Yes Studies:: surgical pathology Stand-Alone Forms: My [facility] Skilled Items Patient informed of condition?: Yes DNR: No Discharge Level of Care: Acute rehab Communicable Disease: No Discharge Prognosis: Stable Lines: None Urinary Catheter: No Medications and DC Order Prescriptions: New metoprolol succinate 25 mg Tablet Extended Release 24 Hr 25 mg PO QAM Qty: 30 0RF insulin glargine [Lantus U-100 Insulin] 100 unit/mL Solution 7 unit subcut HS Qty: 10 0RF insulin aspart U-100 [Novolog U-100 Insulin aspart] 100 unit/mL Solution 1 sliding scale dose SC ACHS Qty: 10 0RF Rx Instructions: --Goal BSG Range: Low 110 mg/dL, High 140 mg/dL --Correction Factor: 30 mg/dL/unit --Carbohydrate ratio = 12 g/unit Continued clopidogrel 75 mg tablet 75 mg PO QAM Qty: 90 3RF (DME) pen needle, diabetic [BD Nicki 2nd Gen Pen Needle] 32 gauge x 5/32" needle See Rx Instructions .Route Qty: 100 11RF Rx Instructions: use to inject 3 times daily buspirone 7.5 mg tablet 7.5 mg PO DAILY PRN (Reason: anxiety) Qty: 90 3RF Renal Caps 1 mg capsule 1 cap PO QAM Qty: 90 3RF (DME) FreeStyle Kvng 3 Plus Sensor Device See Rx Instructions .Route Qty: 2 5RF Rx Instructions: change sensor Q15 D cholecalciferol (vitamin D3) 62.5 mcg (2,500 unit) capsule 62.5 mcg PO HS B12 Active 1,000 mcg tablet,chewable 1,000 mcg PO QAM (DME) lancets [Accu-Chek Fastclix Lancet Drum] misc See Dose Instructions .ROUTE .MEDSUPPLY Qty: 50 Rx Instructions: As directed aspirin 81 mg tablet,chewable 81 mg PO QAM (DME) Accu-Chek SmartView Test Strip Strip See Rx Instructions .ROUTE .MEDSUPPLY Dose Instruction: As directed Rx Instructions: USE 1 TEST STRIP DAILY PRN (DME) Walking Cane Misc See Rx Instructions .Route Qty: 1 0RF Rx Instructions: As directed Velphoro 500 mg tablet,chewable 500 mg PO TID Qty: 90 2RF Rx Instructions: states "I only take if I have a big meal that's heavy in phosphorus" rosuvastatin 40 mg tablet 40 mg PO PM triamcinolone acetonide 0.1 % ointment 1 applic TOPICAL BID PRN (Reason: Anxiety) Held potassium chloride 10 mEq tablet extended release 20 meq PO BID Qty: 120 6RF Hold Instructions: Provider's Order furosemide 40 mg tablet 80 mg PO QAM Hold Instructions: Provider's Order Discontinued insulin degludec [Tresiba FlexTouch U-100] 100 unit/mL (3 mL) insulin pen 18 unit subcut DAILY 90 Days Qty: 16.2 3RF insulin aspart U-100 [Novolog FlexPen U-100 Insulin] 100 unit/mL (3 mL) insulin pen 14 unit subcut TIDWMEAL PRN (Reason: bg LEVELS) metoprolol succinate 50 mg tablet extended release 24 hr 50 mg PO QAM Qty: 90 3RF Discharge Orders: Discharge Order (Routine); Ordered 02/07/24 Ordered By: Sandeep White Admission Data Admit Date/Time: 01/27/24 06:45 Attending Provider: Sandeep White Admit Provider: Melina Rhoades Primary Care Provider: Unruly Trujillo Other Providers: Oseas Madrigal; Melina Rhoades; Enio Hurtado; Ayo Mccarthy; Gentry Gurrola; Junior Martins; Macario Mendoza; Klever Wadsworth; Samy Kumar Jr; Nic Kaplan; Brie Go; Bettina Mayo; Jeyson Lopes; Jeyson Walton; Jay Hernandez; Mohini Bhat; Phi Tubbs; Lee Ann Garcias; Sebastian Barajas; Grayson Blanc; Helder Reza; [facility] Hospital Stay Data Consultations 01/27/24 06:06 Consult General Surgery Routine 01/27/24 06:09 ED Decision to Admit Stat 01/27/24 06:34 Consult Nephrology Routine 01/27/24 16:15 Consult Cardiology Routine Procedures Performed Operation Date: 01/28/24 07:00 Actual Procedures p Robotic Laparoscopic Cholecystectomy(Not Applicable) - Oseas Madrigal, DO, BETHANY Diagnostic Imagining Performed 01/27/24 04:40 CT abd pelvis wo con Stat 01/27/24 06:11 US GB [US gallbladder] Stat 02/05/24 18:55 US hemodialysis fistula Urgent Pending Results Patient Have Any Pending Studies at Discharge: Yes Discharge Instructions Given to Patient (Per Discharging Provider) You have skin glue over your incisions called dermabond. you may shower with this on. It will tend to dissolve and fall off within a couple weeks. Do not pick at the skin glue You may purchase Tylenol over the counter if needed for additional pain control over the next few days. Take per manufacturers instructions Supervising Physician Co-Signing Physician Notes I personally examined the patient and verified all moran points of history and exam, discussed case, and agree with decision making with Dyan GREEN feeling up to going to rehab, excited to get out of the hospital today. no complaints or needs identified for rehab today, otherwise as above Total Time Total Time Spent Total Time Spent (In Minutes): Greater than 30 minutes spent completing this discharge process including direct patient care, medication reconciliation, documentation, review of labs and images, and coordination of care. Coding Level of Care Code 70875 INP/OBS DISCH >30 MIN Diagnoses Acute cholecystitis K81.0 CAD (coronary artery disease) I25.10 ESRD (end stage renal disease) N18.6
== END 2024-02-07 15:22 | DRG 417 ==
LOC: SUATTDRO → ED 04:22 → SUATTDRO 06:45 → EDINP 06:45 → 3E 09:56

== ENCOUNTER 2024-04-20 00:13 | Inpatient (IN) ==
--- OUTSIDE RECORDS SUMMARY | 2024-04-20 00:17 | External Medical Summary | Continuity of Care Document ---
Author Name Unknown Organization [facility] [address], [place] [id number] Care Team Providers Care Information Systems Specialist Name Role Phone Unruly Trujillo Francisco Primary Care Physician [phone] Encounter [facility] [id number] Date(s): 04/06/24 - 04/06/24 [facility] [address], [place] [id number] Encounter Diagnosis Encounter for exam following cancer surgery(Discharge Diagnosis) - 04/06/24 Seborrheic keratosis(Discharge Diagnosis) - 04/06/24 Inflamed seborrheic keratosis(Discharge Diagnosis) - 04/06/24 Actinic keratoses(Discharge Diagnosis) - 04/06/24 Discharge Disposition: Home or Self Care Attending Physician: KATT Valadez, Apolonia Bernardo Allergies, Adverse Reactions, Alerts Substance Criticality Severity Reaction Reaction Severity Status Adhesive bandage skin irritation Active Allergy Not found in Search insect bites Active Trulicity Pen felt terrible on it Active Assessment and Plan Extracted from: Title:Dermatology Office Visit Note Author:KATT Valadez Holly C Date:04/06/24 1.Encounter for exam follo wing cancer surgery . Skin, left thigh, shave biopsy- Hypertrophic bowenoid actinic keratosis with cutaneous horn. 2. Skin, left proximal chand, shave biopsy- Bowenoid actinic keratosis. 3. 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 4. Skin, left distal chand, shave biopsy- Hypertrophic actinic keratosis. Biopsy 02/08/2019 of right forearm showed actinic keratosis07/2021 showed squamous cell carcinoma in situ, 10/02/2022 of the right hand showedsquamous cell carcinoma keratoacanthoma type. 10/2023 SCCIS left chand, left thigh AK, left chand 2 AK's. 12/08/2023 SCCIS left chand treated with ED&C. 2.Seborrheic keratosis Chronic no change Discussed benign nature of lesions. May treat prn if become painful or irritated. Discussed signs and symptoms of skin cancer with patient and advised to call and schedule an appointment if develops any new or concerning lesions or wounds that won't heal. Advised to wear hats, sunscreens and SPF clothing. 3.Inflamed seborrheic keratosis New Flared Discussed benign nature of lesions. Discussed treatment options including observation, moisturizing. Patient elects cryotherapy. Cryotherapy performed to inflamed seborrheic keratosisfollowing verbal consent.educated on may develop scabs, blisters, and fall off in 1-2 weeks, wound healing,dyspigmentation, infection, scar formation were discussed. Wound care instruction was provided. Patients questions were answered. Liquid nitrogen performed on 4lesions right jain 4.Actinic keratoses New Flared Goal is no symptomatic actinic keratoses or actinic keratoses evolving to skin cancer. Education - risk for evolution to skin cancer is very low. Warning signs of skin cancer were reviewed. Protection from sun exposure with hats, sunscreens Discussed treatment options:observation/cryotherapy/topical chemotherapy Patient elected to pursue liquid nitrogen Lesions treated with liquid nitrogen. Patient aware of possibility scabs, blisters, and should fall off in about 1-2 weeks, Discussed possible risk of infection, hypo or hyperpigmentation or scarring. Patient elected to proceed.They should inform me of any problems or recurrences post treatment. treated total of 2lesions onrightdistal thigh, 2 on left distal thigh,2 on left chand, 1 on left calf,1 on left ear, 2 on right ear. Advised patient to call with any problems, questions, or concerns. States understanding. Patient was seen independently,Dr Camachoavailable for immediate collaboration as needed during this visit. Has follow up scheduled withDr Camacho06/14/2024and09/15/2024. Medications allopurinol 100 mg oral tablet Start: 10/05/19 11:01:00 AM EDT, 0.5 tab, PO, q48h Start Date: 10/05/19 Status: Ordered amLODIPine 10 mg oral tablet Start: 10/02/20 2:26:00 PM EDT, 1 tab, PO, Daily Start Date: 10/02/20 Status: Ordered Aspirin Low Dose 81 mg oral delayed release tablet Start: 04/16/18 2:53:00 PM EST, 1 tab, PO, Daily Start Date: 04/16/18 Status: Ordered atorvastatin 40 mg oral tablet TAKE 1 TABLET BY MOUTH EVERY DAY IN THE MORNING Start Date: 11/11/23 Status: Ordered Bactroban 2% topical ointment Start: 11/11/23 4:14:00 PM EDT, 1 appl, topical, tid, Disp# 22 g, Refills: 0, left leg lesions, Pharmacy: [facility]/pharmacy #[id number] Start Date: 11/11/23 Status: Ordered calcitriol 0.25 mcg oral capsule Start: 10/05/19 11:01:00 AM EDT, 1 cap, PO, Daily Start Date: 10/05/19 Status: Ordered cholecalciferol Start: 04/03/22 2:50:00 PM EST Start Date: 04/03/22 Status: Ordered furosemide 40 mg oral tablet Start: 04/03/22 2:49:00 PM EST Start Date: 04/03/22 Status: Ordered hydrALAZINE 10 mg oral tablet Start: 04/04/21 1:50:00 PM EST, 1 tab, PO, bid Start Date: 04/04/21 Status: Ordered metoprolol extended release Start: 04/16/18 2:51:00 PM EST, 150 mg =, PO, Daily Start Date: 04/16/18 Status: Ordered Metoprolol Succinate ER 100 mg oral tablet, extended release Start: 08/26/23 1:27:00 PM EDT, 90 each, 0 Refill(s), TAKE 1 TABLET ORALLY DAILY IN THE MORNING IN ADDITION TO 50MG FOR A TOTAL OF 150MG DAILY Start Date: 08/26/23 Status: Ordered Metoprolol Succinate ER 50 mg oral tablet, extended release Start: 08/26/23 1:27:00 PM EDT, 90 each, 0 Refill(s), TAKE 1 TABLET BY MOUTH EVERY DAY IN THE MORNING Start Date: 08/26/23 Status: Ordered NovoLOG 100 units/mL injectable solution Start: 04/04/21 1:49:00 PM EST, 14 unit =, subQ, ac Start Date: 04/04/21 Status: Ordered Plavix 75 mg oral tablet Start: 08/26/23 1:23:00 PM EDT, 1 tab, PO, ONCE Start Date: 08/26/23 Status: Ordered Renal Caps Start: 08/26/23 1:23:00 PM EDT Start Date: 08/26/23 Status: Ordered Silvadene 1% topical cream Start: 08/26/23 2:32:00 PM EDT, 1 appl, topical, bid, Disp# 20 g, Refills: 5, apply to buttocks twicea day., Note to Pharmacy: she will also be looking to get zinc oxide., Pharmacy: [facility]/pharmacy #[id number] Start Date: 08/26/23 Status: Ordered Silvadene 1% topical cream Start: 08/26/23 6:38:00 PM EDT, 1 appl, topical, bid, Disp# 50 g, Refills: 3, apply to buttocks bid, Pharmacy: [facility]/pharmacy #[id number] Start Date: 08/26/23 Status: Ordered simvastatin 20 mg oral tablet Start: 08/26/23 1:27:00 PM EDT, 90 each, 0 Refill(s), take 1 tablet by mouth at bedtime Start Date: 08/26/23 Status: Ordered simvastatin 40 mg oral tablet Start: 04/16/18 2:53:00 PM EST, 1 tab, PO, qhs Start Date: 04/16/18 Status: Ordered Tresiba FlexTouch 100 units/mL subcutaneous solution Start: 10/02/20 2:26:00 PM EDT, 36 unit =, subQ, Daily Start Date: 10/02/20 Status: Ordered triamcinolone 0.1% topical ointment Start: 12/22/23 5:00:00 PM EDT, See Instructions, Disp# 60 g, Refills: 2, APPLY TOPICALLY TWICE A DAY TO AREA OF INFLAMMATION ON BUTTICK UNTIL CLEAR AND THEN NEEDED, Pharmacy: [id number] Start Date: 12/22/23 Status: Ordered Vitamin B12 Start: 10/02/20 2:27:00 PM EDT, 1 tab, PO, Daily Start Date: 10/02/20 Status: Ordered zinc oxide 10% topical ointment Start: 08/26/23 2:34:00 PM EDT, 1 appl, topical, qid, Disp# 113 g, Refills: 5, apply to buttocks, Pharmacy: [facility][id number] Start Date: 08/26/23 Status: Ordered zinc oxide 10% topical ointment Start: 08/26/23 6:39:00 PM EDT, 1 appl, topical, qid, Disp# 113 g, Refills: 5, to buttocks., Note to Pharmacy: zinc 10%/ dimethicone 1% is fine, over the counter is ok, Pharmacy: [facility] #[id number] Start Date: 08/26/23 Status: Ordered Mental Status 04/06/24 Barriers to Learning one year None evide nt Mandatory Health Literacy Documentation Yes Health Literacy Communication Barriers N ever Primary Language Kazakh Problem List Condition Confirmation Course Effective Dates Status Health St atus Informant Changing skin lesion Confirmed Active DM (diabetes mellitus) Confirmed Active End stage renal disease Confirmed Active History of gout Confirmed Active Encounter for exam following cancer surgery Confirmed Active Inflamed seborrheic keratosis Confirmed Active Squamous cell carcinoma in situ, lower extremity, left Confirmed Active Actinic keratoses Confirmed Active Seborrheic keratosis Confirmed Active Diagnosis Diagnosis Type Effective Dates Health Status Clinical Service Informant Encounter for exam following cancer surgery Discharge Diagnosis 04/06/24 Non-Specified Seborrheic keratosis Discharge Diagnosis 04/06/24 Non-Specified Inflamed seborrheic keratosis Discharge Diagnosis 04/06/24 Non-Specified Actinic keratoses Discharge Diagnosis 04/06/24 Non-Specified Procedures Procedure Date Related Diagnosis Body Site Status Electrodesiccation with curettage 12/08/23 Completed Shave biopsy and cauterizati on of skin 1 12/08/23 Completed Shave biopsy of skin 2 11/11/23 Co mpleted Fistulogram Right arm AVF w/ guest experience captain venous 06/26/23 Completed Stent 06/2023 Completed Electrodesiccation with curettage 3 10/02/22 Completed Punch biopsy 4 05/08/22 Completed Shave biopsy of skin 07/25/21 Comp carla LUIsabel BVT 06/10/21 Completed RUE perc endo AVF creation 03/27/21 Completed Shave biopsy and cauterization of skin 02/08/19 Completed Procedure 5 Completed 1ED&C 21. left thigh 2. left proximal chand 3. left medial chand 4. left distal chand 3right dorsal hand 4#4 Punch Cautery used 5gallbladder removal Social History Social History Type Response Smoking Status Never smoked cigaret galo Sex Female Sex Representation Female (finding) Dermatology Outpatient Note * KATT Valadez, Apolonia Bernardo: PERFORM Event Display: Dermatology Outpt Note Authored Date: [id number] Chief Complaint skin check- area on left ear and right jain History of Present Illness 73 YearsoldFemalepatient here for skin check. I saw 08/26/2023 and 11/11/2023 for skin exams and ED&C for SCCIS on left chand 12/08/2023. Patient reports area of concern today: -spots that need frozen- Sun protection:applies sunscreens, not out much Has hadseborrheic keratosis, actinic keratosistreated in the past withliquid nitrogen:yes No other skin areas of concern. Otherwise healthy. . Skin, left thigh, shave biopsy- Hypertrophic bowenoid actinic keratosis with cutaneous horn. 2. Skin, left proximal chand, shave biopsy- Bowenoid actinic keratosis. 3. 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 4. Skin, left distal chand, shave biopsy- Hypertrophic actinic keratosis. Biopsy 02/08/2019 of rightforearm showed actinic keratosis07/2021 showed squamous cell carcinoma in situ, 10/02/2022 of the right hand showedsquamous cell carcinoma keratoacanthoma type. 10/2023 SCCIS left chand, left thigh AK, left chand 2 AK's. 12/08/2023 SCCIS left chand treated with ED&C. Physical Exam General: Well developed, well nourished, white female, in no acute distress. Oriented x3 with appropriate mood and affect. Skin: complete skin exam performed of hair, scalp, ears, face, nose, lips, neck, chest, abdomen, buttocks, back, axilla, upper and lower extremities, hands, feet, nails, and digits. The groin and genitals were notincluded: -erythematous based, rough, scaling,lesions consistent with actinic keratoses on the arms and legs -waxy lesions consistent with seborrheickeratosis Denied any other areas of concerns. Assessment/Plan 1.Encounter for exam following cancer surgery . Skin, left thigh, shave biopsy- Hypertrophic bowenoid actinic keratosis with cutaneous horn. 2. Skin, left proximal chand, shave biopsy- Bowenoid actinic keratosis. 3. 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 4. Skin, left distal chand, shave biopsy- Hypertrophic actinic keratosis. Biopsy 02/08/2019 of right forearm showed actinic keratosis07/2021 showed squamous cell carcinoma in situ, 10/02/2022 of the right hand showedsquamous cell carcinoma keratoacanthoma type. 10/2023 SCCIS left chand, left thigh AK, left chand 2 AK's. 12/08/2023 SCCIS left chand treated with ED&C. 2.Seborrheic keratosis Chronic no change Discussed benign nature of lesions. May treat prn if become painful or irritated. Discussed signs and symptoms of skin cancer with patient and advised to call and schedule an appointment if develops any new or concerning lesions or wounds that won't heal. Advised to wear hats, sunscreens and SPF clothing. 3.Inflamed seborrheic keratosis New Flared Discussed benign nature of lesions. Discussed treatment options including observation, moisturizing. Patient elects cryotherapy. Cryotherapy performed to inflamedseborrheic keratosisfollowing verbal consent.educated on maydevelop scabs, blisters, and fall off in 1-2 weeks, wound healing,dyspigmentation, infection, scar formation were discussed. Wound care instruction was provided. Patients questions were answered. Liquid nitrogen performed [id number] right jain 4.Actinic keratoses New Flared Goal is no symptomatic actinic keratoses or actinic keratoses evolving to skin cancer. Education - risk for evolution to skin cancer is very low. Warning signs of skin cancer were reviewed. Protection from sun exposure with hats, sunscreens Discussed treatment options:observation/cryotherapy/topical chemotherapy Patient elected to pursueliquid nitrogen Lesions treated with liquid nitrogen. Patient aware of possibility scabs, blisters, and should falloff in about 1-2 weeks, Discussed possible risk of infection, hypo or hyperpigmentation or scarring. Patient elected to proceed.They should inform me of any problems or recurrences post treatment. treated total [id number] onrightdistal thigh, 2 on left distal thigh,2 on left chand, 1 onleft calf,1 on left ear, 2 on right ear. Advised patient to call with any problems, questions, or concerns. States understanding. Patient was seenindependently,Dr Camachoavailable for immediate collaboration as needed during this visit. Has follow up scheduled withDr Camacho06/14/2024and09/15/2024. Problem List/Past Medical History Ongoing Actinic keratoses Changing skin lesion DM (diabetes mellitus) Encounter for exam following cancer surgery End stage renal disease History of gout Inflamed seborrheic keratosis Seborrheic keratosis Squamous cell carcinoma in situ, lower extremity, left Procedure/Surgical History Shave biopsy and cauterization of skin| Service Date: 12/08/2023Electrodesiccation with curettage| Service Date: 12/08/2023Shave biopsy of skin| Service Date: 11/11/2023Stent| Service Date: 06/2023Fistulogram Right arm AVF w/ guest experience captain venous| Service Date: 06/26/2023Electrodesiccation with curettage| Service Date: 10/02/2022unch biopsy| Service Date: 05/08/2022Shave biopsy of skin| Service Date: 07/25/2021LUE BVT| Service Date: 06/10/2021UE perc endo AVF creation| Service Date: 03/27/2021have biopsy and cauterization of skin| Service Date: 02/08/2019Procedure Medications allopurinol(allopurinol 100 mg oral tablet), 50 mg= 0.5 tab, PO, q48h amLODIPine(amLODIPine 10 mg oral tablet), 10 mg= 1 tab, PO, Daily aspirin(Aspirin Low Dose 81 mg oral delayed release tablet), 81 mg= 1 tab, PO, Daily atorvastatin(atorvastatin 40 mg oral tablet) calcitriol(calcitriol 0.25 mcg oral capsule), 0.25 mcg= 1 cap, PO, Daily cholecalciferol clopidogrel(Plavix 75 mg oral tablet), 75 mg= 1 tab, PO, ONCE cyanocobalamin(Vitamin B12), 1 tab, PO, Daily furosemide(furosemide 40 mg oral tablet) hydrALAZINE(hydrALAZINE 10 mg oral tablet), 10 mg= 1 tab, PO, bid insulin aspart(NovoLOG 100 units/mL injectable solution), 14 unit, subQ, ac insulin degludec(Tresiba FlexTouch 100 units/mL subcutaneous solution), 36 unit, subQ, Daily metoprolol(metoprolol extended release), 150 mg, PO, Daily metoprolol(Metoprolol Succinate ER 100 mg oral tablet, extended release) metoprolol(Metoprolol Succinate ER 50 mg oral tablet, extended release) multivitamin(Renal Caps) mupirocin topical(Bactroban 2% topical ointment), 1 appl, topical, tid silver sulfADIAZINE topical(Silvadene 1% topical cream), 1 appl, topical, bid, 5 refills silver sulfADIAZINE topical(Silvadene 1% topical cream), 1 appl, topical, bid, 3 refills simvastatin(simvastatin 40 mg oral tablet), 40 mg= 1 tab, PO, qhs simvastatin(simvastatin 20 mg oral tablet) triamcinolone topical(triamcinolone 0.1% topical ointment), See Instructions zinc oxide topical(zinc oxide 10% topical ointment), 1 appl, topical, qid, 5 refills zinc oxide topical(zinc oxide 10% topical ointment), 1 appl, topical, qid, 5 refills Allergies Adhesive bandageskin irritation Allergy Not found in Searchinsect bites Trulicity Penfelt terrible on it Social History Smoking Status Never smoked cigarettes Electronic Signature on File Electronically Reviewed/Signed by: Apolonia Valadez PA-C Author Signature Dt/Tm:04/06/2024 12:17 PM Department of Dermatology Electronically Reviewed/Signed by: Tylor Camacho MD Cosigner Signature Dt/Tm: 04/06/2024 12:57 PM Department of Dermatology [facility] Patient Care team information Care Team Personnel Name: KATT Levy Lynn 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
--- NOTE | 2024-04-20 00:20 | Emergency Department Note ---
History of Present Illness General Chief complaint: Hip Pain Stated complaint: R HIP PAIN, FELL History of Present Illness 73yo female with history of CAD s/p NSTEMI with LIBRA placed to the mid-LAD on 06/23/23, ESRD on Peritoneal Dialysis presents ER for mechanical fall. Patient states she was walking to her bedroom to do dialysis tripped and fell striking her right hip. She was unable to get up. She called 911. Patient denies head injury, neck pain, chest pain, dyspnea, abdominal pain, numbness, tingling, localized weakness. Home Medications Medication Instructions Recorded Confirmed Type lancets (Accu-Chek Fastclix Lancet #50 ea 12/16/18 03/15/24 History Drum) aspirin 81 mg chewable tablet 81 mg PO QAM 11/07/19 03/15/24 History mecobalamin (vitamin B12) 1,000 1,000 mcg PO QAM 09/13/20 03/15/24 History mcg chewable tablet (B12 Active) blood sugar diagnostic (Accu-Chek 10/15/21 03/15/24 History SmartView Test Strips) cholecalciferol (vitamin D3) 62.5 62.5 mcg PO HS 06/06/22 03/15/24 History mcg (2,500 unit) capsule Walking Cane #1 ea 06/30/23 03/15/24 Rx triamcinolone acetonide 0.1 % 1 applic topical BID PRN Anxiety 07/28/23 03/15/24 History topical ointment clopidogrel 75 mg tablet 75 mg PO QAM #90 tabs 08/18/23 03/15/24 Rx pen needle, diabetic 32 gauge x #100 ea 08/24/23 03/15/24 Rx 5/32" (BD Nicki 2nd Gen Pen Needle) buspirone 7.5 mg tablet 7.5 mg PO DAILY PRN anxiety #90 09/04/23 03/15/24 Rx tabs furosemide 40 mg tablet 80 mg PO QAM 09/08/23 03/15/24 History vitamin B complex and vitamin C 1 cap PO QAM #90 caps 12/15/23 03/15/24 Rx no.20-folic acid 1 mg capsule (Renal Caps) blood-glucose sensor (FreeStyle #2 ea 01/27/24 03/15/24 Rx Kvng 3 Plus Sensor device) rosuvastatin 40 mg tablet 40 mg PO PM 01/27/24 03/15/24 History insulin aspart U-100 100 unit/mL 1 sliding scale dose SC ACHS #10 mL 02/04/24 03/15/24 Rx subcutaneous solution (Novolog U-100 Insulin aspart) metoprolol succinate 50 mg 50 mg PO DAILY 03/01/24 03/15/24 History tablet,extended release 24 hr insulin degludec 100 unit/mL (3 20 unit subcut DAILY 03/15/24 03/15/24 History mL) subcutaneous pen potassium chloride 10 mEq 20 meq (2 x 10 mEq) PO BID #120 04/15/24 Rx tablet,extended release tabs Allergies Allergy/AdvReac Type Severity Reaction Status Date / Time insect venom Allergy Intermediate Swelling Verified 03/15/24 13:09 adhesive tape Allergy Mild Rash Verified 03/15/24 13:09 dulaglutide [From [facility]] AdvReac Mild Constipation, Verified 03/15/24 13:09 vomiting Past Med/Surg History Problem List (Updated 04/20/24 @ 00:37 by Luz Marina Rosado PA-C) Fracture of hip, right, closed (Acute) Type 2 diabetes mellitus with obesity Hypercholesterolemia Non-proliferative diabetic retinopathy, both eyes Gout (Acute) Anxiety Associated dyspnea per pulmonology Vitamin D deficiency Osteopenia Dexa 03/2023 Complex renal cyst Medical History Acute cholecystitis Heart failure with preserved ejection fraction CAD (coronary artery disease) ESRD (end stage renal disease) Obesity Hypertension Non-ST elevation OR (NSTEMI) Pulmonary edema 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 Metabolic acidosis Stage 5 chronic kidney disease not on chronic dialysis AV fistula Periodontal pocket Carious teeth Anemia due to chronic kidney disease Sleep apnea Diastolic CHF Chronic kidney disease, stage 4 (severe) Secondary hyperparathyroidism of renal origin History of DVT (deep vein thrombosis) Fibroids History of hypothyroidism Sensorineural hearing loss (SNHL) of both ears Family history of colon cancer in mother Surgical History Hx laparoscopic cholecystectomy (01/28/24) History of coronary artery stent placement S/P arteriovenous (AV) fistula creation History of dental surgery History of surgery on arm History of colonoscopy Family History Mother Diabetes Renal cell cancer Heart disease Colorectal cancer Hypertension Brother Diabetes Renal cell cancer Heart disease Lung cancer Hypertension Gallbladder disease Father Prostate cancer Heart disease Hypertension Grandmother (Maternal) Colorectal cancer Aunt Diabetes Other Alzheimer disease No family history of adverse response to anesthesia Denies family history of Ovarian cancer Myocardial infarction Breast cancer Social History Smoking Status: Never smoker Second Hand Exposure: No; Do You Dip or Chew Tobacco: No; Hx Alcohol Use: Yes Alcohol type: wine Alcohol Intake Frequency: Monthly or Less Hx Substance Use: No Preferred Language: Greek Communication Ability: Effective Visual Impairment: Limited Hearing Ability: Hard of Hearing Vamp Strap Ironer Required: No Beliefs That Will Affect Care: None marital status: Single Current Living Situation: Alone current occupational status: retired current occupation: Retired How many Children do You have: 0 Feels Safe at Home: Yes Childhood Exposure to Second-Hand Smoke: No (very little ) Diet: diabetic caffeine: Yes (drinks iced tea every day, sometimes soda ) Dental Care, Regularly: Yes Physical Activity Frequency: 1-2 Times per Week Physical Activity Frequency Comment: weight training, walking Seatbelt Use: always Sunscreen Use: Yes (most times ) Assistive Devices: Cane Review of Systems A total of 10 systems reviewed and were otherwise negative Physical Exam Vital Signs Vital Signs - 24 hr 04/20/24 00:16 04/20/24 00:21 04/20/24 01:15 Temperature 37 C Temperature Source Oral Pulse Rate 91 H 92 H 88 Respiratory Rate 22 20 Respiratory Effort / Characteristics Non-Labored Respiratory Depth Normal Respiratory Pattern Regular Blood Pressure 178/89 H 177/89 H Blood Pressure Mean 118 118 Pulse Oximetry 97 99 Oxygen Delivery Method Room Air Sepsis Recent Fever Within 48 Hours No Sepsis New/Unexplained Change in Mental Status N/A Sepsis Action Taken by Nursing No Action Required VITALS: Vitals are noted on the nurse's note and reviewed by myself. Vital signs stable. GENERAL: Pleasant female with right leg externally rotated shortened, in no acute distress, nondiaphoretic, well-developed well-nourished. SKIN: The skin was without rashes, erythema, edema, or bruising. There is no tenting of the skin. Capillary reflex less than 2 seconds. HEAD: Normocephalic atraumatic. EARS: External auditory canals clear EYES: Pupils equal round and reactive to light and accommodation. Conjunctivae without injection, sclerae without icterus. Extraocular movements intact. NOSE: Patent, no discharge. MOUTH: Mucous membranes moist. Pharynx without erythema or exudate. Uvula midline. Airway patent. Tongue does not deviate. NECK: Supple without nuchal rigidity. No lymphadenopathy. No thyromegaly. Cervical spine is nontender. No JVD. HEART: Regular rate and rhythm LUNGS: Clear to auscultation bilaterally without wheezes, rales or rhonchi. No retractions or accessory muscle use. ABDOMEN: Positive bowel sounds x 4. Normal tympanic percussion. Soft, nontender, without masses or organomegaly. Ledbetter sign negative. No guarding or rebound tenderness. No CVA tenderness MUSCULOSKELETAL: No muscle atrophy, erythema, or edema noted. No thoracic or lumbar tenderness. Right hip tender to palpation. All other extremities nontender to palpation. NEURO: Patient was alert and oriented to person place and time. Normal sensation to light and sharp touch. No focal neurological deficits. Course Administered Medications Discontinued Medications Acetaminophen (Ofirmev) 1,000 mg in 100 mls @ 400 mls/hr IV NOW STA Stop: 04/20/24 00:31 Last Infusion: 04/20/24 00:59 Dose: Infused Documented By: Admin: 04/20/24 00:41 Dose: 400 mls/hr Documented By: AIDAN Pantoprazole Sodium (Protonix) 40 mg in 10 mls @ 5 mls/min IV NOW ONE Stop: 04/20/24 00:49 Last Admin: 04/20/24 01:01 Dose: Not Given Documented By: AIDAN Ondansetron HCl (Ondansetron Inj 2 Mg/Ml 2 Ml Vial) 4 mg IV NOW STA Stop: 04/20/24 00:49 Last Admin: 04/20/24 01:01 Dose: Not Given Documented By: AIDAN Medical Decision Making Medical Records Attestation: I reviewed the patient's medical records. Home Medications Current Medication List: was personally reviewed by me Laboratory Data Attestation: I reviewed the patient's lab results. 04/20/24 00:40 04/20/24 00:40 Lab Results 04/20/24 04/20/24 Range/Units 00:40 01:17 WBC 9.18 (4.8-10.8) K/ul RBC 2.92 L (4.20-5.40) M/uL Hgb 9.8 L (12.0-16.0) g/dl Hct 27.3 L (37.0-47.0) % MCV 93.5 (80.0-100.0) fL MCH 33.6 (25.0-34.0) pg MCHC 35.9 (32.0-36.0) g/dL RDW Std Deviation 46.5 H (36.4-46.3) fL RDW Coeff of Poornima 13.8 (11.5-14.5) % Plt Count 224 (130-400) K/uL MPV 10.9 (9.4-12.4) fL Immature Gran % (Auto) 0.5 % Neut % (Auto) 74.9 % Lymph % (Auto) 14.5 % [place] % (Auto) 7.4 % Eos % (Auto) 2.3 % Baso % (Auto) 0.4 % Neut # (Auto) 6.87 H (1.40-6.50) K/uL Lymph # (Auto) 1.33 (1.20-3.40) K/uL [place] # (Auto) 0.68 H (0.11-0.59) K/uL Eos # (Auto) 0.21 (0.00-0.50) K/uL Baso # (Auto) 0.04 (0.00-0.20) K/uL Immature Gran # (Auto) 0.05 (0.01-0.20) K/uL Sodium 132 L (136-145) mmol/L Potassium 2.8 L (3.5-5.1) mmol/L Chloride 93 L (98-107) mmol/L Carbon Dioxide 25 (21-32) mmol/L Anion Gap 14 H (3-11) BUN 31 H (6-23) mg/dl Creatinine 7.72 H* (0.6-1.2) mg/dl Est Cr Clr Drug Dosing 6.5 ml/min eGFR 5.06 BUN/Creatinine Ratio 4.0 L (10-20) Glucose 210 H (70-99(Fasting)) mg/dl POC Glucose 206 H (70-99) mg/dl Calcium 8.8 (8.6-10.3) mg/dl Total Bilirubin 0.4 (0.2-1.0) mg/dl AST 261 H (13-39) U/L ALT 266 H (7-52) U/L Alkaline Phosphatase 109 H (34-104) U/L Total Protein 5.6 L (6.0-8.3) gm/dl Albumin 2.6 L (3.4-5.0) gm/dl Globulin 3.0 (2.5-4.0) gm/dl Albumin/Globulin Ratio 0.9 (0.9-2) Imaging Data Attestation: I personally reviewed and interpreted this imaging study as follows: Radiologist's Impression: Hip/Pelvis X-Ray 04/20/24 00:17 EXAM: XR hip RT 2V w pelvis CLINICAL HISTORY: Right hip pain, Hx fall. TECHNIQUE: X-ray images of the right hip joints and pelvis were obtained in anteroposterior (AP) and oblique projection, including pelvis AP. COMPARISON: No prior studies are available for comparison. FINDINGS: Pelvic Bones: Right femoral intertrochanteric fracture with mild gapping. The left femoral neck appears normal. The iliac wing, ischium, pubis, and sacrum, are normal and intact bilaterally. Hip Joints: Narrowing of the superior aspects of both hip joints with marginal osteophytes of the acetabulum. No evidence of hip dislocation or subluxation. Femoral heads are normal and centered within the acetabulum. No evidence of avascular necrosis, or significant deformities. Sacroiliac joints appear normal and unremarkable. No evidence of sacroiliitis or significant degenerative changes. Symphysis Pubis: The symphysis pubis is normal and intact. No evidence of separation or widening. Soft Tissues: Marked atherosclerotic calcification of the visualized vessels of the abdomen and lower limbs. Well-defined calcified lesions, measuring about 8 x 6 cm and 2 x 2 cm in diameter, are seen in the pelvic cavity, and likely represent calcified fibroids. Ossification changes of the proximal aspect of the right gluteal muscles, near its origin at the right iliac crest. Additional Findings: No other significant abnormalities were noted. IMPRESSION: 1. Right femoral intertrochanteric fracture with mild gapping. 2. Bilateral hip joint osteoarthritis. DISCLAIMER:A subtle bone abnormality or fracture may not be readily apparent on X-rays, thus clinical correlation and further imaging including follow-up CT, MRI, or follow-up X-rays are advised as needed. [facility]'s ER was called at [phone] at 12:15 AM [employer] WAITRESS/WAITER, 04/20/2024, and Dr. Rosado was informed regarding the presence of Significant Medical Findings on this report. Electronically signed by Mike Acuña 04-20-2024 01:24 AM Chest X-Ray 04/20/24 00:18 EXAM: XR chest 1V portable CLINICAL HISTORY: History of fall, pain in the right hip. TECHNIQUE: An X-ray image of the chest is obtained in AP projection. COMPARISON: No prior studies are available for comparison. FINDINGS: Pulmonary Parenchyma: The mild reticular pattern of both lungs with no zonal predilection. No evidence of consolidation, collapse, or focal opacities. No pulmonary nodules are identified. No evidence of pleural effusion or pleural thickening. Heart and Mediastinum: Calcified aortic knuckle. Heart size and shape are normal. No mediastinal widening or masses. No hilar or mediastinal lymphadenopathy. Bony Thorax: The bony thorax appears intact without fractures or deformities. Soft Tissues: Soft tissues overlying the chest wall are unremarkable. IMPRESSION: 1. A mild reticular pattern of both lungs. 2. No acute cardiopulmonary abnormalities are identified. Electronically signed by Mike Acuña 04-20-2024 01:12 AM MDM Narrative Prior records reviewed and summarized above. Triage Nursing notes reviewed. Additional history obtained from EMS. The patient's history was concerning for fall with hip pain. Differential diagnosis: Etiologies such as fracture, dislocation, neurovascular compromise, compartment syndrome, soft tissue injury, as well as others were entertained. Physical examination: Consistent with an isolated hip injury. ER treatment provided: IV lock Tylenol was ordered NPO Bedrest On reassessment the patient felt better. Diagnostics interpreted by me: ECG: Ordered for preop EKG: Normal sinus, poor baseline, no acute ST-T wave changes, rate 87. Impression normal sinus rhythm with sinus arrhythmia poor baseline independently interpreted by myself The labs Independently Interpreted by myself revealed mildly elevated LFTs, elevated creatinine and patient does home peritoneal dialysis. Stable anemia per chart review. No worrisome leukocytosis Imaging studies: Xrays of the right hip and pelvis are concerning for intertrochanteric hip fracture per my independent interpretation The patient has an isolated hip fracture and will need admission to the hospital. Medicine was consulted case discussed. Patient will be admitted to the medical service. Patient is agreeable. Consultation: A consultation was placed with hospitalist. The case was discussed and diagnostics were reviewed. The patient was evaluated in the ER for further treatment. The chart was completed utilizing [employer] Speech voice recognition software. Grammatical errors, random word insertions, pronoun errors, and incomplete sentences are an occassional consequence of this system due to software limitations, ambient noise, and hardware issues. Any formal questions or concerns about the content, text, or information contained within the body of this dictation should be directly addressed to the physician real estate executive assistant for clarification. Impression & Plan Fracture of hip, right, closed Discharge Plan Visit Data Chief Complaint: Hip Pain Stated Complaint: R HIP PAIN, FELL ED Provider: Celeste Arriaga ED Midlevel Provider: Luz Marina Rosado Discharge Problem: Fracture of hip, right, closed Patient Disposition: Admitted As Inpatient Condition: Good Forms Stand Alone Forms: My [facility] Prescriptions Prescriptions: No Action clopidogrel 75 mg tablet 75 mg PO QAM Qty: 90 3RF (DME) pen needle, diabetic [BD Nicki 2nd Gen Pen Needle] 32 gauge x 5/32" needle See Rx Instructions .Route Qty: 100 11RF Rx Instructions: use to inject 3 times daily buspirone 7.5 mg tablet 7.5 mg PO DAILY PRN (Reason: anxiety) Qty: 90 3RF Renal Caps 1 mg capsule 1 cap PO QAM Qty: 90 3RF (DME) FreeStyle Kvng 3 Plus Sensor Device See Rx Instructions .Route Qty: 2 5RF Rx Instructions: change sensor Q15 D metoprolol succinate 50 mg tablet extended release 24 hr 50 mg PO DAILY Patient Comments: CONFIRMED W/ PT AND ON [facility] L[facility] 03/01/24 insulin degludec 100 unit/mL (3 mL) insulin pen 20 unit subcut DAILY Patient Comments: CONFIRMED W/ PT THAT SHE IS TAKING TRESIBA 18-20 UNITS DAILY. potassium chloride 10 mEq tablet extended release 20 meq PO BID Qty: 120 6RF Hold Instructions: Provider's Order furosemide 40 mg tablet 80 mg PO QAM Hold Instructions: Provider's Order cholecalciferol (vitamin D3) 62.5 mcg (2,500 unit) capsule 62.5 mcg PO HS B12 Active 1,000 mcg tablet,chewable 1,000 mcg PO QAM (DME) lancets [Accu-Chek Fastclix Lancet Drum] misc See Dose Instructions .ROUTE .MEDSUPPLY Qty: 50 Rx Instructions: As directed aspirin 81 mg tablet,chewable 81 mg PO QAM (DME) Accu-Chek SmartView Test Strip Strip See Rx Instructions .ROUTE .MEDSUPPLY Dose Instruction: As directed Rx Instructions: USE 1 TEST STRIP DAILY PRN (DME) Walking Cane Misc See Rx Instructions .Route Qty: 1 0RF Rx Instructions: As directed rosuvastatin 40 mg tablet 40 mg PO PM insulin aspart U-100 [Novolog U-100 Insulin aspart] 100 unit/mL Solution 1 sliding scale dose SC ACHS Qty: 10 0RF Rx Instructions: --Goal BSG Range: Low 110 mg/dL, High 140 mg/dL --Correction Factor: 30 mg/dL/unit --Carbohydrate ratio = 12 g/unit triamcinolone acetonide 0.1 % ointment 1 applic TOPICAL BID PRN (Reason: Anxiety) Referrals Referrals: Unruly Trujillo DO [Primary Care Provider] - Discharge Problem: Fracture of hip, right, closed Qualifiers: Encounter type: initial encounter Qualified Code(s): S72.001A - Fracture of unspecified part of neck of right femur, initial encounter for closed fracture
[2024-04-20] MEDS: ACETAMINOPHEN 1,000 MG/100 ML VIAL IV STA (00:41)
--- NOTE | 2024-04-20 00:46 | Emergency Department Note ---
ED Visit Note I was consulted by the Advanced Practice Provider. I personally approved the management plan and take responsibility for the patient management. This includes the aspects of: -History/Physical -MDM -I independently interpreted the following studies:Studies and results .
[2024-04-20] MEDS: ONDANSETRON INJ 2 MG/ML 2 ML VIAL IV STA (01:01)
[2024-04-20] MEDS: PANTOprazole 40 MG/10 ML SYR IV ONE (01:01)
--- NOTE | 2024-04-20 01:12 | XRay Report ---
EXAM: XR chest 1V portable CLINICAL HISTORY: History of fall, pain in the right hip. TECHNIQUE: An X-ray image of the chest is obtained in AP projection. COMPARISON: No prior studies are available for comparison. FINDINGS: Pulmonary Parenchyma: The mild reticular pattern of both lungs with no zonal predilection. No evidence of consolidation, collapse, or focal opacities. No pulmonary nodules are identified. No evidence of pleural effusion or pleural thickening. Heart and Mediastinum: Calcified aortic knuckle. Heart size and shape are normal. No mediastinal widening or masses. No hilar or mediastinal lymphadenopathy. Bony Thorax: The bony thorax appears intact without fractures or deformities. Soft Tissues: Soft tissues overlying the chest wall are unremarkable. IMPRESSION: 1. A mild reticular pattern of both lungs. 2. No acute cardiopulmonary abnormalities are identified. Electronically signed by Mike Acuña 04-20-2024 01:12 AM
[2024-04-20 01:20] LABS: Albumin Globulin Ratio 0.9 (0.9-2); Albumin Level 2.6 gm/dl (3.4-5.0); Bilirubin,Total 0.4 mg/dl (0.2-1.0); Calcium 8.8 mg/dl (8.6-10.3); Creatinine Clr Calc Pharmacy 6.5 ml/min; Potassium 2.8 mmol/L (3.5-5.1); Total Protein 5.6 gm/dl (6.0-8.3)
[2024-04-20 01:24] LABS: Basophils # (auto) 0.04 K/uL (0.00-0.20); Basophils % (auto) 0.4 %; Eosinophils # (auto) 0.21 K/uL (0.00-0.50); Eosinophils % (auto) 2.3 %; Hematocrit (blood only) 27.3 % (37.0-47.0); Hemoglobin 9.8 g/dl (12.0-16.0); Immature Granulocytes # (auto) 0.05 K/uL (0.01-0.20); Immature Granulocytes % (auto) 0.5 %; Lymphocytes # (auto) 1.33 K/uL (1.20-3.40); Lymphocytes % (auto) 14.5 %; Mean Corpuscular Hemoglobin 33.6 pg (25.0-34.0); Mean Corpuscular Hgb Conc 35.9 g/dL (32.0-36.0); Mean Corpuscular Volume 93.5 fL (80.0-100.0); Mean Platelet Volume 10.9 fL (9.4-12.4); Monocytes # (auto) 0.68 K/uL (0.11-0.59); Monocytes % (auto) 7.4 %; Neutrophils # (auto) 6.87 K/uL (1.40-6.50); Neutrophils % (auto) 74.9 %; Platelet Count 224 K/uL (130-400); RDW Coefficient of Variation 13.8 % (11.5-14.5); RDW Standard Deviation 46.5 fL (36.4-46.3); Red Blood Count 2.92 M/uL (4.20-5.40); White Blood Count 9.18 K/ul (4.8-10.8)
--- NOTE | 2024-04-20 01:24 | XRay Report ---
EXAM: XR hip RT 2V w pelvis CLINICAL HISTORY: Right hip pain, Hx fall. TECHNIQUE: X-ray images of the right hip joints and pelvis were obtained in anteroposterior (AP) and oblique projection, including pelvis AP. COMPARISON: No prior studies are available for comparison. FINDINGS: Pelvic Bones: Right femoral intertrochanteric fracture with mild gapping. The left femoral neck appears normal. The iliac wing, ischium, pubis, and sacrum, are normal and intact bilaterally. Hip Joints: Narrowing of the superior aspects of both hip joints with marginal osteophytes of the acetabulum. No evidence of hip dislocation or subluxation. Femoral heads are normal and centered within the acetabulum. No evidence of avascular necrosis, or significant deformities. Sacroiliac joints appear normal and unremarkable. No evidence of sacroiliitis or significant degenerative changes. Symphysis Pubis: The symphysis pubis is normal and intact. No evidence of separation or widening. Soft Tissues: Marked atherosclerotic calcification of the visualized vessels of the abdomen and lower limbs. Well-defined calcified lesions, measuring about 8 x 6 cm and 2 x 2 cm in diameter, are seen in the pelvic cavity, and likely represent calcified fibroids. Ossification changes of the proximal aspect of the right gluteal muscles, near its origin at the right iliac crest. Additional Findings: No other significant abnormalities were noted. IMPRESSION: 1. Right femoral intertrochanteric fracture with mild gapping. 2. Bilateral hip joint osteoarthritis. DISCLAIMER:A subtle bone abnormality or fracture may not be readily apparent on X-rays, thus clinical correlation and further imaging including follow-up CT, MRI, or follow-up X-rays are advised as needed. [facility]'s ER was called at [phone] at 12:15 AM SLEEVE SEWER, 04/20/2024, and Dr. Rosado was informed regarding the presence of Significant Medical Findings on this report. Electronically signed by Mike Acuña 04-20-2024 01:24 AM
[2024-04-20] MEDS ORDERED: ACETAMINOPHEN 1,000 MG/100 ML VIAL IV PRN (01:37)
[2024-04-20] MEDS: HYDROmorphone INJ 0.5 MG/0.5 ML SYR IV PRN ×2 (01:43→03:26)
--- NOTE | 2024-04-20 01:57 | History & Physical Report ---
Date of Service April 20, 2024 Assessment & Plan (1) Fracture of hip, right, closed: (2) Type 2 diabetes mellitus with obesity: (3) Hypercholesterolemia: (4) Transaminitis: (5) Anxiety: Plan Closed right hip fracture- NPO Last dose of aspirin and Plavix was on the morning of 04/19 No further Tylenol, as given by the ED, due to transaminitis Dilaudid 0.25 mg IV every 3 hours as needed for moderate pain Dilaudid 0.5 mg IV every 3 hours as needed for severe pain Geriatric hip fracture order set Consult orthopedic surgery ESRD- On peritoneal dialysis as an outpatient, with last dialysis run from Thursday evening to Thursday morning about 24 hours ago Usually goes on hemodialysis while in hospital Consult her prick stitcher Dr. Wing Transaminitis- AST is increased from 66-261 ALT is increased to 104-266 after having had a laparoscopic cholecystectomy on 01/28/2024 Concern regarding possibility of peritonitis versus hepatic congestion Ordering a CT scan of abdomen pelvis without contrast for further assessment Zosyn 4.5 g IV every 8 hours Follow serial laboratories Of note, she has tested immune to hepatitis B Blood cultures Pending results of CT, will consider consult to gastroenterology Diabetes mellitus- Reduce degludec from 20 to 10 units subcu every morning Placed on Accu-Cheks with NovoLog SSI Hypertension- Continue metoprolol succinate with hold parameters History of Present Illness Chief Complaint: The patient presents to the emergency department after a fall, where she was going around a corner, bumped a piece of furniture, landed on her right hip, and developed immediate pain and inability to bear weight Primary Care Provider: Unruly Trujillo DO The patient is a 73-year-old female with a past medical history including diabetes mellitus type 2 with obesity, hypercholesterolemia, nonproliferative diabetic retinopathy, GERD, anxiety, and D deficiency, ESRD on peritoneal dialysis as an outpatient but goes on hemodialysis and then patient. She presents to the emergency department with inability to bear weight on her right hip after a ground-level fall which brought in the piece of furniture at home. Allergies Allergy/AdvReac Type Severity Reaction Status Date / Time insect venom Allergy Intermediate Swelling Verified 03/15/24 13:09 adhesive tape Allergy Mild Rash Verified 03/15/24 13:09 dulaglutide [From Trulicity] AdvReac Mild Constipation, Verified 03/15/24 13:09 vomiting Home Medications Medication Instructions Recorded Confirmed Type lancets (Accu-Chek Fastclix Lancet #50 ea 12/16/18 03/15/24 History Drum) aspirin 81 mg chewable tablet 81 mg PO QAM 11/07/19 03/15/24 History mecobalamin (vitamin B12) 1,000 1,000 mcg PO QAM 09/13/20 03/15/24 History mcg chewable tablet (B12 Active) blood sugar diagnostic (Accu-Chek 10/15/21 03/15/24 History SmartView Test Strips) cholecalciferol (vitamin D3) 62.5 62.5 mcg PO HS 06/06/22 03/15/24 History mcg (2,500 unit) capsule Walking Cane #1 ea 06/30/23 03/15/24 Rx triamcinolone acetonide 0.1 % 1 applic topical BID PRN Anxiety 07/28/23 03/15/24 History topical ointment clopidogrel 75 mg tablet 75 mg PO QAM #90 tabs 08/18/23 03/15/24 Rx pen needle, diabetic 32 gauge x #100 ea 08/24/23 03/15/24 Rx 5/32" (BD Nicki 2nd Gen Pen Needle) buspirone 7.5 mg tablet 7.5 mg PO DAILY PRN anxiety #90 09/04/23 03/15/24 Rx tabs furosemide 40 mg tablet 80 mg PO QAM 09/08/23 03/15/24 History vitamin B complex and vitamin C 1 cap PO QAM #90 caps 12/15/23 03/15/24 Rx no.20-folic acid 1 mg capsule (Renal Caps) blood-glucose sensor (FreeStyle #2 ea 01/27/24 03/15/24 Rx Kvng 3 Plus Sensor device) rosuvastatin 40 mg tablet 40 mg PO PM 01/27/24 03/15/24 History insulin aspart U-100 100 unit/mL 1 sliding scale dose SC ACHS #10 mL 02/04/24 03/15/24 Rx subcutaneous solution (Novolog U-100 Insulin aspart) metoprolol succinate 50 mg 50 mg PO DAILY 03/01/24 03/15/24 History tablet,extended release 24 hr insulin degludec 100 unit/mL (3 20 unit subcut DAILY 03/15/24 03/15/24 History mL) subcutaneous pen potassium chloride 10 mEq 20 meq (2 x 10 mEq) PO BID #120 04/15/24 Rx tablet,extended release tabs Past Med/Surg History Problem List (Updated 04/20/24 @ 02:45 by Dudley Lea MD) ESRD (end stage renal disease) Transaminitis Fracture of hip, right, closed (Acute) Type 2 diabetes mellitus with obesity Hypercholesterolemia Non-proliferative diabetic retinopathy, both eyes Gout (Acute) Anxiety Associated dyspnea per pulmonology Vitamin D deficiency Osteopenia Dexa 03/2023 Complex renal cyst Medical History Acute cholecystitis Heart failure with preserved ejection fraction CAD (coronary artery disease) ESRD (end stage renal disease) Obesity Hypertension Non-ST elevation DC (NSTEMI) Pulmonary edema 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 Metabolic acidosis Stage 5 chronic kidney disease not on chronic dialysis AV fistula Periodontal pocket Carious teeth Anemia due to chronic kidney disease Sleep apnea Diastolic CHF Chronic kidney disease, stage 4 (severe) Secondary hyperparathyroidism of renal origin History of DVT (deep vein thrombosis) Fibroids History of hypothyroidism Sensorineural hearing loss (SNHL) of both ears Family history of colon cancer in mother Surgical History Hx laparoscopic cholecystectomy (01/28/24) History of coronary artery stent placement S/P arteriovenous (AV) fistula creation History of dental surgery History of surgery on arm History of colonoscopy Family History Mother Diabetes Renal cell cancer Heart disease Colorectal cancer Hypertension Brother Diabetes Renal cell cancer Heart disease Lung cancer Hypertension Gallbladder disease Father Prostate cancer Heart disease Hypertension Grandmother (Maternal) Colorectal cancer Aunt Diabetes Other Alzheimer disease No family history of adverse response to anesthesia Denies family history of Ovarian cancer Myocardial infarction Breast cancer Social History Smoking Status: Never smoker Second Hand Exposure: No; Do You Dip or Chew Tobacco: No; Hx Alcohol Use: Yes Alcohol type: wine Alcohol Intake Frequency: Monthly or Less Hx Substance Use: No Preferred Language: Hungarian Communication Ability: Effective Visual Impairment: Limited Hearing Ability: Hard of Hearing Instrumentation Technician Required: No Beliefs That Will Affect Care: None marital status: Single Current Living Situation: Alone current occupational status: retired current occupation: Retired How many Children do You have: 0 Feels Safe at Home: Yes Childhood Exposure to Second-Hand Smoke: No (very little ) Diet: diabetic caffeine: Yes (drinks iced tea every day, sometimes soda ) Dental Care, Regularly: Yes Physical Activity Frequency: 1-2 Times per Week Physical Activity Frequency Comment: weight training, walking Seatbelt Use: always Sunscreen Use: Yes (most times ) Assistive Devices: Cane Review of Systems Review of Systems: The patient denies chest pain, palpitations, shortness of breath, dyspnea on exertion, cough, sore throat, fevers, chills, sweats, weight change, fatigue, nausea, vomiting, diarrhea , constipation, abdominal pain, pelvic pain, blood in urine or stool, dysuria, urinary frequency or urgency, lightheadedness, dizziness, headache, memory loss, loss of consciousness, rash, abnormal bruising or bleeding, focal or generalized weakness, numbness or tingling in arms or left leg, generalized arthralgias or myalgias, back or neck pain, or night sweats. The review of systems is otherwise negative other than for that already noted above, and at least 10 systems have been reviewed. Physical Exam Physical Exam: The patient is awake, alert and oriented 3, well developed and well nourished, normocephalic and atraumatic, lying in bed and in no acute distress. HEENT--PERRL, EOMI, mucous membranes and oropharynx mildly dry Neck--supple. No JVD. No bruits. Thyroid normal, trachea midline, no adenopathy. Heart--normal S1 and S2. No murmurs, rubs or gallops. Lungs--clear bilaterally, no respiratory distress, no accessory muscle use. Abdomen--normal bowel sounds and soft. Nontender. Nondistended. Extremities-- 1+ bilateral pretibial pitting edema Dermatologic--normal skin turgor, normal color, no abnormal lymph nodes, no rash. Neurologic--cranial nerves II through XII grossly intact. Rheumatologic--limited exam due to right hip pain Psychiatric--normal affect. Results & Data Results & Data Vital Signs (Past 12 Hours) Vital Signs Temp Pulse Resp BP Pulse Ox O2 Del Method 12/25/24 01:15 88 20 177/89 H 99 04/20/24 00:21 92 H 04/20/24 00:16 37 C 91 H 22 178/89 H 97 Room Air Laboratory Results Laboratory Results WBC 9.18 K/ul (4.8-10.8) 04/20/24 00:40 RBC 2.92 M/uL (4.20-5.40) L 04/20/24 00:40 Hgb 9.8 g/dl (12.0-16.0) L 04/20/24 00:40 Hct 27.3 % (37.0-47.0) L 04/20/24 00:40 MCV 93.5 fL (80.0-100.0) 04/20/24 00:40 MCH 33.6 pg (25.0-34.0) 04/20/24 00:40 MCHC 35.9 g/dL (32.0-36.0) 04/20/24 00:40 RDW Std Deviation 46.5 fL (36.4-46.3) H 04/20/24 00:40 RDW Coeff of Poornima 13.8 % (11.5-14.5) 04/20/24 00:40 Plt Count 224 K/uL (130-400) 04/20/24 00:40 MPV 10.9 fL (9.4-12.4) 04/20/24 00:40 Immature Gran % (Auto) 0.5 % 04/20/24 00:40 Neut % (Auto) 74.9 % 04/20/24 00:40 Lymph % (Auto) 14.5 % 04/20/24 00:40 Bladen % (Auto) 7.4 % 04/20/24 00:40 Eos % (Auto) 2.3 % 04/20/24 00:40 Baso % (Auto) 0.4 % 04/20/24 00:40 Neut # (Auto) 6.87 K/uL (1.40-6.50) H 04/20/24 00:40 Lymph # (Auto) 1.33 K/uL (1.20-3.40) 04/20/24 00:40 Bladen # (Auto) 0.68 K/uL (0.11-0.59) H 04/20/24 00:40 Eos # (Auto) 0.21 K/uL (0.00-0.50) 04/20/24 00:40 Baso # (Auto) 0.04 K/uL (0.00-0.20) 04/20/24 00:40 Immature Gran # (Auto) 0.05 K/uL (0.01-0.20) 04/20/24 00:40 PT 10.7 Seconds (9.0-12.0) 04/20/24 00:40 INR 1.0 (0.9-1.1) 04/20/24 00:40 APTT 22 Seconds (21-31) 04/20/24 00:40 PTT Ratio 0.8 04/20/24 00:40 Sodium 132 mmol/L (136-145) L 04/20/24 00:40 Potassium 2.8 mmol/L (3.5-5.1) L 04/20/24 00:40 Chloride 93 mmol/L (98-107) L 04/20/24 00:40 Carbon Dioxide 25 mmol/L (21-32) 04/20/24 00:40 Anion Gap 14 (3-11) H 04/20/24 00:40 BUN 31 mg/dl (6-23) H 04/20/24 00:40 Creatinine 7.72 mg/dl (0.6-1.2) H* 04/20/24 00:40 Est Cr Clr Drug Dosing 6.5 ml/min 04/20/24 00:40 eGFR 5.06 04/20/24 00:40 BUN/Creatinine Ratio 4.0 (10-20) L 04/20/24 00:40 Glucose 210 mg/dl (70-99(Fasting)) H 04/20/24 00:40 POC Glucose 206 mg/dl (70-99) H 04/20/24 01:17 Calcium 8.8 mg/dl (8.6-10.3) 04/20/24 00:40 Magnesium 1.7 mg/dl (1.7-2.4) 04/20/24 00:40 Total Bilirubin 0.4 mg/dl (0.2-1.0) 04/20/24 00:40 AST 261 U/L (13-39) H 04/20/24 00:40 ALT 266 U/L (7-52) H 04/20/24 00:40 Alkaline Phosphatase 109 U/L (34-104) H 04/20/24 00:40 Total Protein 5.6 gm/dl (6.0-8.3) L 04/20/24 00:40 Albumin 2.6 gm/dl (3.4-5.0) L 04/20/24 00:40 Globulin 3.0 gm/dl (2.5-4.0) 04/20/24 00:40 Albumin/Globulin Ratio 0.9 (0.9-2) 04/20/24 00:40 Impressions Hip/Pelvis X-Ray 04/20/24 00:17 EXAM: XR hip RT 2V w pelvis CLINICAL HISTORY: Right hip pain, Hx fall. TECHNIQUE: X-ray images of the right hip joints and pelvis were obtained in anteroposterior (AP) and oblique projection, including pelvis AP. COMPARISON: No prior studies are available for comparison. FINDINGS: Pelvic Bones: Right femoral intertrochanteric fracture with mild gapping. The left femoral neck appears normal. The iliac wing, ischium, pubis, and sacrum, are normal and intact bilaterally. Hip Joints: Narrowing of the superior aspects of both hip joints with marginal osteophytes of the acetabulum. No evidence of hip dislocation or subluxation. Femoral heads are normal and centered within the acetabulum. No evidence of avascular necrosis, or significant deformities. Sacroiliac joints appear normal and unremarkable. No evidence of sacroiliitis or significant degenerative changes. Symphysis Pubis: The symphysis pubis is normal and intact. No evidence of separation or widening. Soft Tissues: Marked atherosclerotic calcification of the visualized vessels of the abdomen and lower limbs. Well-defined calcified lesions, measuring about 8 x 6 cm and 2 x 2 cm in diameter, are seen in the pelvic cavity, and likely represent calcified fibroids. Ossification changes of the proximal aspect of the right gluteal muscles, near its origin at the right iliac crest. Additional Findings: No other significant abnormalities were noted. IMPRESSION: 1. Right femoral intertrochanteric fracture with mild gapping. 2. Bilateral hip joint osteoarthritis. DISCLAIMER:A subtle bone abnormality or fracture may not be readily apparent on X-rays, thus clinical correlation and further imaging including follow-up CT, MRI, or follow-up X-rays are advised as needed. [facility]'s ER was called at [phone] at 12:15 AM [employer]IST, 04/20/2024, and Dr. Rosado was informed regarding the presence of Significant Medical Findings on this report. Electronically signed by Mike Acuña 04-20-2024 01:24 AM Chest X-Ray 04/20/24 00:18 EXAM: XR chest 1V portable CLINICAL HISTORY: History of fall, pain in the right hip. TECHNIQUE: An X-ray image of the chest is obtained in AP projection. COMPARISON: No prior studies are available for comparison. FINDINGS: Pulmonary Parenchyma: The mild reticular pattern of both lungs with no zonal predilection. No evidence of consolidation, collapse, or focal opacities. No pulmonary nodules are identified. No evidence of pleural effusion or pleural thickening. Heart and Mediastinum: Calcified aortic knuckle. Heart size and shape are normal. No mediastinal widening or masses. No hilar or mediastinal lymphadenopathy. Bony Thorax: The bony thorax appears intact without fractures or deformities. Soft Tissues: Soft tissues overlying the chest wall are unremarkable. IMPRESSION: 1. A mild reticular pattern of both lungs. 2. No acute cardiopulmonary abnormalities are identified. Electronically signed by Mike Acuña 04-20-2024 01:12 AM Code Status & VTE Plan Code Status Full code VTE Prophylaxis Plan VTE Prophylaxis will be ordered: Yes PG Care Time/CCT Total # of Minutes Spent Total Time Spent with Patient: Total time spent is greater than 50% in coordination of care (as documented) at patient's floor/unit and/or counseling patient: Coding Level of Care Code 37680 INT INP/OBS CARE 3/75MIN Diagnoses Fracture of hip, right, closed S72.001A Encounter type: initial encounter Type 2 diabetes mellitus with obesity E11.69; E66.9 Hypercholesterolemia E78.00 Transaminitis R74.01 Anxiety F41.9 (1) Fracture of hip, right, closed Encounter type: initial encounter Qualified Code(s): S72.001A - Fracture of unspecified part of neck of right femur, initial encounter for closed fracture
[2024-04-20] MEDS ORDERED: ONDANSETRON INJ 2 MG/ML 2 ML VIAL IV PRN ×3 (02:00→16:10)
[2024-04-20 02:06] LABS: Magnesium 1.7 mg/dl (1.7-2.4)
[2024-04-20 02:22] LABS: Partial Thromboplastin Ratio 0.8; Partial Thromboplastin Time 22 Seconds (21-31); Prothrombin Time 10.7 Seconds (9.0-12.0)
[2024-04-20] MEDS: PIPERACILLIN/TAZOBACTAM 4.5 GM/100 ML BAG IV STA (02:23)
[2024-04-20 02:46] LABS: Troponin I High Sensitivity 84.2 pg/ml (0-14)
[2024-04-20] MEDS ORDERED: bisacodyL 10 MG SUPP PR PRN (02:46)
[2024-04-20] MEDS ORDERED: NALOXONE HCL 0.4 MG/1 ML VIAL/CARP IV PRN (02:46)
[2024-04-20] MEDS ORDERED: MAGNESIUM HYDROXIDE SUSP 30 ML UDC PO PRN (02:46)
--- NOTE | 2024-04-20 03:07 | CT Scan Report ---
EXAM: CT abd pelvis wo con CLINICAL HISTORY: transaminitis, ESRD on PD, ABD PAIN , RT HIP PAIN TECHNIQUE: Contiguous axial images were obtained from the level of the diaphragm to the pubic symphysis without intravenous or oral contrast. Coronal and sagittal reconstructions were likewise performed and indicated to increase the sensitivity for detecting clinically relevant pathology. CT scan was performed according to ALARA (as low as reasonable achievable). COMPARISON: None. FINDINGS: The visualized lung bases are clear. Evaluation of the abdominal and pelvic visceral organs is limited without intravenous contrast. The unenhanced liver, spleen, pancreas, and adrenal glands are grossly unremarkable. The gallbladder is not seen. The kidneys are normal in size and attenuation without obvious calcification. There is no hydronephrosis or perinephric stranding. Multiple punctate calculi are noted involving bilateral kidney. The ureters are normal in caliber. No adenopathy seen. No evidence of focal or diffuse bowel wall thickening or evidence of bowel obstruction is seen. The appendix is visualized in the right lower quadrant and appears within normal limits. The aorta is normal in caliber. The urinary bladder is normal in contour. Pelvic viscera are grossly unremarkable. No aggressive appearing osseous lesions are identified. Diffuse atherosclerotic calcification is noted involving aorta, iliac arteries and the withir all branches. Moderate ascites noted - predominantly lower abdomen and pelvis region. Multiple calcified fibroids are noted involving uterus largest measures about 6 x 5 cm. Dialysis catheter/tube is seen in situ in abdominal cavity. Comminuted mildly displaced fracture of proximal shaft and intertrochanteric region of right femur. IMPRESSION: 1. Diffuse atherosclerotic calcification is noted involving aorta, iliac arteries and their all branches. 2. Moderate ascites noted - predominantly lower abdomen and pelvis region. 3. Multiple punctate calculi are noted involving bilateral kidney. 4. Multiple calcified fibroids are noted involving uterus, largest measures about 6 x 5 cm. 5. Comminuted mildly displaced fracture of proximal shaft and intertrochanteric region of right femur. Electronically signed by Morales Anderson 04-20-2024 03:07 AM
[2024-04-20] MEDS ORDERED: GLUCOSE 10 TAB/TUBE PO PRN (03:12)
[2024-04-20] MEDS ORDERED: GLUCOSE 40% GEL 15 GM TUBE PO PRN (03:12)
[2024-04-20] MEDS ORDERED: DEXTROSE 50% 50 ML SYRINGE IV PRN (03:12)
[2024-04-20] MEDS ORDERED: GLUCAGON FOR INJ 1 MG VIAL SQ PRN (03:12)
[2024-04-20] MEDS: INSULIN ASPART PER UNIT CHARGE SC SCH (06:18)
[2024-04-20 07:45] LABS: Estimated Average Glucose 157 mg/dl; Hemoglobin A1C 7.1 % (4.5-5.6)
--- NOTE | 2024-04-20 08:15 | Communication Note ---
Date of Service: April 20, 2024 pt needs potassium above 3.0 for hip surgery to occur. Nephrology is consulted.
[2024-04-20] MEDS: POTASSIUM CHLORIDE CRTAB 20 MEQ TABCR PO STA (08:29)
[2024-04-20] MEDS: POTASSIUM CHLORIDE / WTR 10 MEQ/100 ML PLCT IV SCH (08:29)
--- NOTE | 2024-04-20 08:29 | Orthopedic Consultation ---
Date of Consultation April 20, 2024 Assessment & Plan (1) ESRD (end stage renal disease): (2) Fracture of hip, right, closed: Findings discussed with patient. Operative and nonoperative management reviewed. The pros and cons of each are discussed. I recommended operative intervention and she agrees to proceed. She will likely need vancomycin preoperatively. Will need to coordinate care with medicine nephrology and anesthesia regarding her electrolyte imbalance and dialysis. Her potassium is currently 2.8. She will need a type and screen. We talked about risks benefits rehab recovery. An informed consent was obtained for right hip trochanteric nail. Will keep her n.p.o. for now and add her onto the schedule in case were able to do surgery today.She has possibly what could be a new foot drop on the right. I discussed this with her. She does have significant pain when she is moving the leg. Her motor dysfunction could be related to pain. Will monitor and reassess. (3) Type 2 diabetes mellitus with obesity: History of Present Illness Attending Physician: Sandeep White, History of Present Illness Karis is a 73-year-old female who bumped into a piece of furniture last evening and fell injuring her right hip. Severe right hip pain. Unable to walk. Brought to the emergency room where she was evaluated and diagnosed with a right hip fracture. She was admitted to the medical service. There is no prior history of right hip injuries. She notes that she was able to move her foot last evening but has more difficulty today moving her right foot up and down. Allergies Allergy/AdvReac Type Severity Reaction Status Date / Time insect venom Allergy Intermediate Swelling Verified 03/15/24 13:09 adhesive tape Allergy Mild Rash Verified 03/15/24 13:09 dulaglutide [From Trulicity] AdvReac Mild Constipation, Verified 03/15/24 13:09 vomiting Home Medications Medication Instructions Recorded Confirmed Type lancets (Accu-Chek Fastclix Lancet #50 ea 12/16/18 03/15/24 History Drum) aspirin 81 mg chewable tablet 81 mg PO QAM 11/07/19 03/15/24 History mecobalamin (vitamin B12) 1,000 1,000 mcg PO QAM 09/13/20 03/15/24 History mcg chewable tablet (B12 Active) blood sugar diagnostic (Accu-Chek 10/15/21 03/15/24 History SmartView Test Strips) cholecalciferol (vitamin D3) 62.5 62.5 mcg PO HS 06/06/22 03/15/24 History mcg (2,500 unit) capsule Walking Cane #1 ea 06/30/23 03/15/24 Rx triamcinolone acetonide 0.1 % 1 applic topical BID PRN Anxiety 07/28/23 03/15/24 History topical ointment clopidogrel 75 mg tablet 75 mg PO QAM #90 tabs 08/18/23 03/15/24 Rx pen needle, diabetic 32 gauge x #100 ea 08/24/23 03/15/24 Rx 5/32" (BD Nicki 2nd Gen Pen Needle) buspirone 7.5 mg tablet 7.5 mg PO DAILY PRN anxiety #90 09/04/23 03/15/24 Rx tabs furosemide 40 mg tablet 80 mg PO QAM 09/08/23 03/15/24 History vitamin B complex and vitamin C 1 cap PO QAM #90 caps 12/15/23 03/15/24 Rx no.20-folic acid 1 mg capsule (Renal Caps) blood-glucose sensor (FreeStyle #2 ea 01/27/24 03/15/24 Rx Kvng 3 Plus Sensor device) rosuvastatin 40 mg tablet 40 mg PO PM 01/27/24 03/15/24 History insulin aspart U-100 100 unit/mL 1 sliding scale dose SC ACHS #10 mL 02/04/24 03/15/24 Rx subcutaneous solution (Novolog U-100 Insulin aspart) metoprolol succinate 50 mg 50 mg PO DAILY 03/01/24 03/15/24 History tablet,extended release 24 hr insulin degludec 100 unit/mL (3 20 unit subcut DAILY 03/15/24 03/15/24 History mL) subcutaneous pen potassium chloride 10 mEq 20 meq (2 x 10 mEq) PO BID #120 04/15/24 Rx tablet,extended release tabs Patient History Medical History Acute cholecystitis Heart failure with preserved ejection fraction CAD (coronary artery disease) ESRD (end stage renal disease) Obesity Hypertension Non-ST elevation GA (NSTEMI) Pulmonary edema 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 Metabolic acidosis Stage 5 chronic kidney disease not on chronic dialysis AV fistula Periodontal pocket Carious teeth Anemia due to chronic kidney disease Sleep apnea Diastolic CHF Chronic kidney disease, stage 4 (severe) Secondary hyperparathyroidism of renal origin History of DVT (deep vein thrombosis) Fibroids History of hypothyroidism Sensorineural hearing loss (SNHL) of both ears Family history of colon cancer in mother Surgical History Hx laparoscopic cholecystectomy (01/28/24) History of coronary artery stent placement S/P arteriovenous (AV) fistula creation History of dental surgery History of surgery on arm History of colonoscopy Family History Mother Diabetes Renal cell cancer Heart disease Colorectal cancer Hypertension Brother Diabetes Renal cell cancer Heart disease Lung cancer Hypertension Gallbladder disease Father Prostate cancer Heart disease Hypertension Grandmother (Maternal) Colorectal cancer Aunt Diabetes Other Alzheimer disease No family history of adverse response to anesthesia Denies family history of Ovarian cancer Myocardial infarction Breast cancer Social History Smoking Status: Never smoker Second Hand Exposure: No; Do You Dip or Chew Tobacco: No; Hx Alcohol Use: Yes Alcohol type: wine Alcohol Intake Frequency: Monthly or Less Hx Substance Use: No Preferred Language: Georgian Communication Ability: Effective Visual Impairment: Limited Hearing Ability: Hard of Hearing Monument Letterer Required: No Beliefs That Will Affect Care: None marital status: Single Current Living Situation: Alone current occupational status: retired current occupation: Retired How many Children do You have: 0 Feels Safe at Home: Yes Childhood Exposure to Second-Hand Smoke: No (very little ) Diet: diabetic caffeine: Yes (drinks iced tea every day, sometimes soda ) Dental Care, Regularly: Yes Physical Activity Frequency: 1-2 Times per Week Physical Activity Frequency Comment: weight training, walking Seatbelt Use: always Sunscreen Use: Yes (most times ) Assistive Devices: Cane and Glasses Review of Systems Review of Systems: She is on peritoneal dialysis. She has been on dialysis for almost the past year. She reports that her last bone density test was okay. She denies a history of bleeding embolism. She does have a remote history of a DVT. She is not on a blood thinner. She has not had an allergy to metals or MRSA. She does report an allergy to Band-Aids. Tape is okay. Allergy to Trulicity. Her medications and past medical history noted and reviewed. She has not had a history of staph or MRSA infections. She is MRSA positive. Nasal swab. Physical Exam Physical Exam: The right foot is shortened and externally rotated. There is right hip pain with any movement of the right hip area. There is tenderness to palpation of the right thigh which is mildly swollen but not bruised. There is no visible open wound. The remainder of the thigh knee leg and ankle is nontender on the right. She can move her arms. She can move her left leg without difficulty. She is awake alert and oriented. Pedal pulses are nonpalpable but they are positive Doppler DP and PT. She reports intact sensation throughout the leg. The foot is warm with capillary refill less than 2 seconds. She has 4 out of 5 plantarflexion strength uncertain eversion strength but likely no more than 3 out of 5. She has no EHL function on the right. She has ankle dorsiflexion limited in excursion but no more than 3 out of 5. On the left she has 5 out of 5 ankle plantarflexion dorsiflexion and eversion with 4 out of 5 strength on EHL testing. Results & Data Vital Signs (Past 12 Hours) Vital Signs Temp Pulse Pulse Resp BP BP Pulse Ox 04/20/24 08:13 88 04/20/24 07:00 36.9 C 88 18 152/60 H 97 04/20/24 06:46 04/20/24 04:16 94 H 04/20/24 03:32 04/20/24 03:32 36.9 C 78 20 164/74 H 98 04/20/24 03:12 36.9 C 78 20 164/74 H 98 04/20/24 03:12 04/20/24 02:45 80 18 152/82 H 99 04/20/24 01:15 88 20 177/89 H 99 04/20/24 00:21 92 H 04/20/24 00:16 37 C 91 H 22 178/89 H 97 Pulse Ox O2 Del Method O2 Del Method 04/20/24 08:13 04/20/24 07:00 Room Air 04/20/24 06:46 97 Room Air 04/20/24 04:16 04/20/24 03:32 Room Air 04/20/24 03:32 Room Air 12/25/24 03:12 Room Air 04/20/24 03:12 98 Room Air 04/20/24 02:45 04/20/24 01:15 04/20/24 00:21 04/20/24 00:16 Room Air Laboratory Results Laboratory Results WBC 9.18 K/ul (4.8-10.8) 04/20/24 00:40 RBC 2.92 M/uL (4.20-5.40) L 04/20/24 00:40 Hgb 9.8 g/dl (12.0-16.0) L 04/20/24 00:40 Hct 27.3 % (37.0-47.0) L 04/20/24 00:40 MCV 93.5 fL (80.0-100.0) 04/20/24 00:40 MCH 33.6 pg (25.0-34.0) 04/20/24 00:40 MCHC 35.9 g/dL (32.0-36.0) 04/20/24 00:40 RDW Std Deviation 46.5 fL (36.4-46.3) H 04/20/24 00:40 RDW Coeff of Poornima 13.8 % (11.5-14.5) 04/20/24 00:40 Plt Count 224 K/uL (130-400) 04/20/24 00:40 MPV 10.9 fL (9.4-12.4) 04/20/24 00:40 Immature Gran % (Auto) 0.5 % 04/20/24 00:40 Neut % (Auto) 74.9 % 04/20/24 00:40 Lymph % (Auto) 14.5 % 04/20/24 00:40 [place] % (Auto) 7.4 % 04/20/24 00:40 Eos % (Auto) 2.3 % 04/20/24 00:40 Baso % (Auto) 0.4 % 04/20/24 00:40 Neut # (Auto) 6.87 K/uL (1.40-6.50) H 04/20/24 00:40 Lymph # (Auto) 1.33 K/uL (1.20-3.40) 04/20/24 00:40 [place] # (Auto) 0.68 K/uL (0.11-0.59) H 04/20/24 00:40 Eos # (Auto) 0.21 K/uL (0.00-0.50) 04/20/24 00:40 Baso # (Auto) 0.04 K/uL (0.00-0.20) 04/20/24 00:40 Immature Gran # (Auto) 0.05 K/uL (0.01-0.20) 04/20/24 00:40 PT 10.7 Seconds (9.0-12.0) 04/20/24 00:40 INR 1.0 (0.9-1.1) 04/20/24 00:40 APTT 22 Seconds (21-31) 04/20/24 00:40 PTT Ratio 0.8 04/20/24 00:40 Sodium 132 mmol/L (136-145) L 04/20/24 00:40 Potassium 2.8 mmol/L (3.5-5.1) L 04/20/24 00:40 Chloride 93 mmol/L (98-107) L 04/20/24 00:40 Carbon Dioxide 25 mmol/L (21-32) 04/20/24 00:40 Anion Gap 14 (3-11) H 04/20/24 00:40 BUN 31 mg/dl (6-23) H 04/20/24 00:40 Creatinine 7.72 mg/dl (0.6-1.2) H* 04/20/24 00:40 Est Cr Clr Drug Dosing 6.5 ml/min 04/20/24 00:40 eGFR 5.06 04/20/24 00:40 BUN/Creatinine Ratio 4.0 (10-20) L 04/20/24 00:40 Glucose 210 mg/dl (70-99(Fasting)) H 04/20/24 00:40 POC Glucose 161 mg/dl (70-99) H 04/20/24 06:09 Estimat Average Glucose 157 mg/dl 04/20/24 06:29 Hemoglobin A1c 7.1 % (4.5-5.6) H 04/20/24 06:29 Calcium 8.8 mg/dl (8.6-10.3) 04/20/24 00:40 Magnesium 1.7 mg/dl (1.7-2.4) 04/20/24 00:40 Total Bilirubin 0.4 mg/dl (0.2-1.0) 04/20/24 00:40 AST 261 U/L (13-39) H 04/20/24 00:40 ALT 266 U/L (7-52) H 04/20/24 00:40 Alkaline Phosphatase 109 U/L (34-104) H 04/20/24 00:40 Troponin I High Sens 84.2 pg/ml (0-14) H* 04/20/24 00:40 Total Protein 5.6 gm/dl (6.0-8.3) L 04/20/24 00:40 Albumin 2.6 gm/dl (3.4-5.0) L 04/20/24 00:40 Globulin 3.0 gm/dl (2.5-4.0) 04/20/24 00:40 Albumin/Globulin Ratio 0.9 (0.9-2) 04/20/24 00:40 Impressions Hip/Pelvis X-Ray 04/20/24 00:17 EXAM: XR hip RT 2V w pelvis CLINICAL HISTORY: Right hip pain, Hx fall. TECHNIQUE: X-ray images of the right hip joints and pelvis were obtained in anteroposterior (AP) and oblique projection, including pelvis AP. COMPARISON: No prior studies are available for comparison. FINDINGS: Pelvic Bones: Right femoral intertrochanteric fracture with mild gapping. The left femoral neck appears normal. The iliac wing, ischium, pubis, and sacrum, are normal and intact bilaterally. Hip Joints: Narrowing of the superior aspects of both hip joints with marginal osteophytes of the acetabulum. No evidence of hip dislocation or subluxation. Femoral heads are normal and centered within the acetabulum. No evidence of avascular necrosis, or significant deformities. Sacroiliac joints appear normal and unremarkable. No evidence of sacroiliitis or significant degenerative changes. Symphysis Pubis: The symphysis pubis is normal and intact. No evidence of separation or widening. Soft Tissues: Marked atherosclerotic calcification of the visualized vessels of the abdomen and lower limbs. Well-defined calcified lesions, measuring about 8 x 6 cm and 2 x 2 cm in diameter, are seen in the pelvic cavity, and likely represent calcified fibroids. Ossification changes of the proximal aspect of the right gluteal muscles, near its origin at the right iliac crest. Additional Findings: No other significant abnormalities were noted. IMPRESSION: 1. Right femoral intertrochanteric fracture with mild gapping. 2. Bilateral hip joint osteoarthritis. DISCLAIMER:A subtle bone abnormality or fracture may not be readily apparent on X-rays, thus clinical correlation and further imaging including follow-up CT, MRI, or follow-up X-rays are advised as needed. [facility]'s ER was called at [phone] at 12:15 AM GUT SNATCHER, 04/20/2024, and Dr. Rosado was informed regarding the presence of Significant Medical Findings on this report. Electronically signed by Mike Acuña 04-20-2024 01:24 AM Chest X-Ray 04/20/24 00:18 EXAM: XR chest 1V portable CLINICAL HISTORY: History of fall, pain in the right hip. TECHNIQUE: An X-ray image of the chest is obtained in AP projection. COMPARISON: No prior studies are available for comparison. FINDINGS: Pulmonary Parenchyma: The mild reticular pattern of both lungs with no zonal predilection. No evidence of consolidation, collapse, or focal opacities. No pulmonary nodules are identified. No evidence of pleural effusion or pleural thickening. Heart and Mediastinum: Calcified aortic knuckle. Heart size and shape are normal. No mediastinal widening or masses. No hilar or mediastinal lymphadenopathy. Bony Thorax: The bony thorax appears intact without fractures or deformities. Soft Tissues: Soft tissues overlying the chest wall are unremarkable. IMPRESSION: 1. A mild reticular pattern of both lungs. 2. No acute cardiopulmonary abnormalities are identified. Electronically signed by Mike Acuña 04-20-2024 01:12 AM Abdomen/Pelvis CT 04/20/24 01:58 EXAM: CT abd pelvis wo con CLINICAL HISTORY: transaminitis, ESRD on PD, ABD PAIN , RT HIP PAIN TECHNIQUE: Contiguous axial images were obtained from the level of the diaphragm to the pubic symphysis without intravenous or oral contrast. Coronal and sagittal reconstructions were likewise performed and indicated to increase the sensitivity for detecting clinically relevant pathology. CT scan was performed according to ALARA (as low as reasonable achievable). COMPARISON: None. FINDINGS: The visualized lung bases are clear. Evaluation of the abdominal and pelvic visceral organs is limited without intravenous contrast. The unenhanced liver, spleen, pancreas, and adrenal glands are grossly unremarkable. The gallbladder is not seen. The kidneys are normal in size and attenuation without obvious calcification. There is no hydronephrosis or perinephric stranding. Multiple punctate calculi are noted involving bilateral kidney. The ureters are normal in caliber. No adenopathy seen. No evidence of focal or diffuse bowel wall thickening or evidence of bowel obstruction is seen. The appendix is visualized in the right lower quadrant and appears within normal limits. The aorta is normal in caliber. The urinary bladder is normal in contour. Pelvic viscera are grossly unremarkable. No aggressive appearing osseous lesions are identified. Diffuse atherosclerotic calcification is noted involving aorta, iliac arteries and the withir all branches. Moderate ascites noted - predominantly lower abdomen and pelvis region. Multiple calcified fibroids are noted involving uterus largest measures about 6 x 5 cm. Dialysis catheter/tube is seen in situ in abdominal cavity. Comminuted mildly displaced fracture of proximal shaft and intertrochanteric region of right femur. IMPRESSION: 1. Diffuse atherosclerotic calcification is noted involving aorta, iliac arteries and their all branches. 2. Moderate ascites noted - predominantly lower abdomen and pelvis region. 3. Multiple punctate calculi are noted involving bilateral kidney. 4. Multiple calcified fibroids are noted involving uterus, largest measures about 6 x 5 cm. 5. Comminuted mildly displaced fracture of proximal shaft and intertrochanteric region of right femur. Electronically signed by Morales Anderson 04-20-2024 03:07 AM (2) Fracture of hip, right, closed Encounter type: initial encounter Qualified Code(s): S72.001A - Fracture of unspecified part of neck of right femur, initial encounter for closed fracture
[2024-04-20] MEDS: METOPROLOL SUCC 50MG EXT REL TAB PO SCH (09:30)
[2024-04-20] MEDS: PIPERACILLIN/TAZOBACTAM 4.5 GM/100 ML BAG IV SCH (09:31)
[2024-04-20] MEDS: LANTUS PER UNIT CHARGE SC SCH (09:41)
--- NOTE | 2024-04-20 10:35 | Operative Report ---
Post Operative Report Pre & Post Diagnosis Operation Date: 04/20/24 12:00 <No data on this case meets the specified criteria> I identified the patient and participated in the time-out.: Yes Procedure Operation Date: 04/20/24 12:00 <No data on this case meets the specified criteria> Surgeon NIKOLAI Orlando MD [employer] Deonte Morrissey PA-C Estimated Blood Loss 50 Findings Consistent with Post-Op Diagnosis see operative report Specimens none Drains none Complications none Disposition Accompanied Patient To Recovery: Yes Indications This 73-year-old female presented through the ED after tripping and falling. She sustained a fracture of her right hip. She elected to proceed with surgical invention after being educated about potential risks and outcomes. Preoperative imaging was obtained. Description of Procedure The patient was taken to the operating room where she was given general anesthesia. She was prepped and draped in the usual sterile fashion. Please see Dr. Orlando's operative report for specifics of the procedure. I was present for the entire case from initial patient positioning through final wound closure. Assistance was provided in tissue retraction, hemostasis, fracture reduction, hardware placement, and final wound closure. The patient was taken to recovery in ICU in satisfactory condition. I attest to the content of the Intraoperative Record and any orders documented therein. Any exceptions are noted below.
--- NOTE | 2024-04-20 10:42 | Nephrology Consultation ---
Date of Consultation April 20, 2024 Assessment & Plan (1) ESRD (end stage renal disease): (2) Fracture of hip, right, closed: (3) Anemia due to chronic kidney disease: (4) Hypertension: Plan ESKD on peritoneal dialysis, admitted after a fall and fracture of the right hip, waiting for OR. Hemoglobin relatively stable, blood pressure fair. Potassium was low at 2.8, currently getting IV and oral potassium supplement and repeat potassium was 3.0. --Okay to go ahead with surgery for right hip fracture as planned by orthopedic surgery. -- As volume status and electrolyte otherwise stable, no emergency need for dialysis today -- Will resume dialysis tomorrow. --Epogen 69443 units x 1 dose now --Right arm nephrology precautions --Continue on regular potassium diet once diet is resumed. Thank you for allowing me to participate in your patient's care. It was a pleasu re to see Karis. History of Present Illness Reason for Consultation: End-stage kidney disease, on peritoneal dialysis, admitted after a fall and right hip fracture. Attending Physician: Sandeep White DO History of Present Illness Ms. Margaux Guthrie is a 73-year-old female with PMH of ESRD on PD, admitted to the hospital with right hip fracture after a fall at home. Nephrology consult was requested for management of peritoneal dialysis and electrolyte abnormality prior to planned surgery this afternoon. Electronic medical records were reviewed in detail during visit. Karis presented to the ER yesterday after she had a fall at home while she tripped over a furniture when she was getting prepared to start on nightly peritoneal dialysis. She was having excruciating pain in right hip after the fall and was unable to move. In ER Hip xray showed Right femoral intertrochanteric fracture with mild gapping. She was seen by orthopedic surgery and tentatively plan for or this afternoon. Vital signs were acc eptable, did not have any shortness of breath or chest pain. Lab was notable for hemoglobin 9.8 which is close to her baseline. Potassium was noted to be 2.8, since she was started on. Her potassium has been low, has been on potassium supplement at home. She has been getting oral and IV potassium and repeat potassium just came back at 3.0. She is still voids few times a day, volume status stable. Last dialysis was Thursday night and she currently has a liter of long dwell since yesterday. ESRD secondary to diabetic kidney disease and hypertension, has been on NCCPD (4 x 2200 ml - ave dwell 1.5 hrs, 1 L last fill). started HD in May 2023 during a hospitalization, initially was on HD via a RUE AVF until July when she transitioned to PD. Complications of ESKD also include secondary hyperparathyroidism and anemia. She is maintained on maintenance Venofer 200 mg monthly and Mircera. Medical history is also notable for CAD (history of PCI with stent ). Has right arm basilic vein endovascular AV fistula was placed in March 2021 and transposition performed in May 2021. Never smoker. Retired. Other than significant pain in right hip and lower extremity, she has been asy mptomatic. Getting IV potassium supplement. Allergies Allergy/AdvReac Type Severity Reaction Status Date / Time insect venom Allergy Intermediate Swelling Verified 03/15/24 13:09 adhesive tape Allergy Mild Rash Verified 03/15/24 13:09 dulaglutide [From [facility]] AdvReac Mild Constipation, Verified 03/15/24 13:09 vomiting Home Medications Medication Instructions Recorded Confirmed Type lancets (Accu-Chek Fastclix Lancet #50 ea 12/16/18 03/15/24 History Drum) aspirin 81 mg chewable tablet 81 mg PO QAM 11/07/19 03/15/24 History mecobalamin (vitamin B12) 1,000 1,000 mcg PO QAM 09/13/20 03/15/24 History mcg chewable tablet (B12 Active) blood sugar diagnostic (Accu-Chek 10/15/21 03/15/24 History SmartView Test Strips) cholecalciferol (vitamin D3) 62.5 62.5 mcg PO HS 06/06/22 03/15/24 History mcg (2,500 unit) capsule Walking Cane #1 ea 06/30/23 03/15/24 Rx triamcinolone acetonide 0.1 % 1 applic topical BID PRN Anxiety 07/28/23 03/15/24 History topical ointment clopidogrel 75 mg tablet 75 mg PO QAM #90 tabs 08/18/23 03/15/24 Rx pen needle, diabetic 32 gauge x #100 ea 08/24/23 03/15/24 Rx 5/32" (BD Nicki 2nd Gen Pen Needle) buspirone 7.5 mg tablet 7.5 mg PO DAILY PRN anxiety #90 09/04/23 03/15/24 Rx tabs furosemide 40 mg tablet 80 mg PO QAM 09/08/23 03/15/24 History vitamin B complex and vitamin C 1 cap PO QAM #90 caps 12/15/23 03/15/24 Rx no.20-folic acid 1 mg capsule (Renal Caps) blood-glucose sensor (FreeStyle #2 ea 01/27/24 03/15/24 Rx Kvng 3 Plus Sensor device) rosuvastatin 40 mg tablet 40 mg PO PM 01/27/24 03/15/24 History insulin aspart U-100 100 unit/mL 1 sliding scale dose SC ACHS #10 mL 02/04/24 03/15/24 Rx subcutaneous solution (Novolog U-100 Insulin aspart) metoprolol succinate 50 mg 50 mg PO DAILY 03/01/24 03/15/24 History tablet,extended release 24 hr insulin degludec 100 unit/mL (3 20 unit subcut DAILY 03/15/24 03/15/24 History mL) subcutaneous pen potassium chloride 10 mEq 20 meq (2 x 10 mEq) PO BID #120 04/15/24 Rx tablet,extended release tabs Patient History Medical History Acute cholecystitis Heart failure with preserved ejection fraction CAD (coronary artery disease) ESRD (end stage renal disease) Obesity Hypertension Non-ST elevation MS (NSTEMI) Pulmonary edema 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 Metabolic acidosis Stage 5 chronic kidney disease not on chronic dialysis AV fistula Periodontal pocket Carious teeth Anemia due to chronic kidney disease Sleep apnea Diastolic CHF Chronic kidney disease, stage 4 (severe) Secondary hyperparathyroidism of renal origin History of DVT (deep vein thrombosis) Fibroids History of hypothyroidism Sensorineural hearing loss (SNHL) of both ears Family history of colon cancer in mother Surgical History Hx laparoscopic cholecystectomy (01/28/24) History of coronary artery stent placement S/P arteriovenous (AV) fistula creation History of dental surgery History of surgery on arm History of colonoscopy Family History Mother Diabetes Renal cell cancer Heart disease Colorectal cancer Hypertension Brother Diabetes Renal cell cancer Heart disease Lung cancer Hypertension Gallbladder disease Father Prostate cancer Heart disease Hypertension Grandmother (Maternal) Colorectal cancer Aunt Diabetes Other Alzheimer disease No family history of adverse response to anesthesia Denies family history of Ovarian cancer Myocardial infarction Breast cancer Social History Smoking Status: Never smoker Second Hand Exposure: No; Do You Dip or Chew Tobacco: No; Hx Alcohol Use: Yes Alcohol type: wine Alcohol Intake Frequency: Monthly or Less Hx Substance Use: No Preferred Language: Slovak Communication Ability: Effective Visual Impairment: Limited Hearing Ability: Hard of Hearing 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 Required: No Beliefs That Will Affect Care: None marital status: Single Current Living Situation: Alone current occupational status: retired current occupation: Retired How many Children do You have: 0 Feels Safe at Home: Yes Childhood Exposure to Second-Hand Smoke: No (very little ) Diet: diabetic caffeine: Yes (drinks iced tea every day, sometimes soda ) Dental Care, Regularly: Yes Physical Activity Frequency: 1-2 Times per Week Physical Activity Frequency Comment: weight training, walking Seatbelt Use: always Sunscreen Use: Yes (most times ) Assistive Devices: Cane and Glasses Review of Systems Review of Systems: Detailed review of system was done and pertinent positives and negatives are mentioned above. Physical Exam Constitutional: WD/WN, vitals as above no acute distress Eyes: + anicteric sclerae Respiratory: no respiratory distress Auscultation: lungs clear to a uscultation bilaterally Cardiovascular: Rate/Rhythm: regular rate and regular rhythm Extremities: + AV fistula (Rt BC AVFn with thrill and bruit); no edema Gastrointestinal (Abdomen): PD catheter in place, non tender Musculoskeletal: rt LE decreased ROM, tender to touch Skin: no rashes, warm and dry Neurologic: no focal motor deficits Psychiatric: Orientation: alert and oriented x 3 Affect: euthymic affect Results & Data Vital Signs (Past 12 Hours) Vital Signs Temp Pulse Pulse Resp BP BP Pulse Ox 04/20/24 08:13 88 04/20/24 07:00 36.9 C 88 18 152/60 H 97 04/20/24 06:46 04/20/24 04:16 94 H 04/20/24 03:32 04/20/24 03:32 36.9 C 78 20 164/74 H 98 04/20/24 03:12 36.9 C 78 20 164/74 H 98 04/20/24 03:12 04/20/24 02:45 80 18 152/82 H 99 04/20/24 01:15 88 20 177/89 H 99 04/20/24 00:21 92 H 04/20/24 00:16 37 C 91 H 22 178/89 H 97 Pulse Ox O2 Del Method O2 Del Method 04/20/24 08:13 04/20/24 07:00 Room Air 04/20/24 06:46 97 Room Air 04/20/24 04:16 04/20/24 03:32 Room Air 04/20/24 03:32 Room Air 04/20/24 03:12 Room Air 04/20/24 03:12 98 Room Air 04/20/24 02:45 04/20/24 01:15 04/20/24 00:21 04/20/24 00:16 Room Air PG Care Time/CCT Total # of Minutes Spent Total Time Spent with Patient: Total time spent is greater than 50% in coordination of care (as documented) at patient's floor/unit and/or counseling patient: Coding Level of Care Code 74232 INT INP/OBS CARE 375MIN Diagnoses ESRD (end stage renal disease) N18.6 Fracture of hip, right, closed S72.001A Encounter type: initial encounter Anemia due to chronic kidney disease N18.9; D63.1 Essential hypertension I10 Hypertension type: essential hypertension (2) Fracture of hip, right, closed Encounter type: initial encounter Qualified Code(s): S72.001A - Fracture of unspecified part of neck of right femur, initial encounter for closed fracture (4) Hypertension Hypertension type: essential hypertension Qualified Code(s): I10 - Essential (primary) hypertension
--- NOTE | 2024-04-20 11:05 | Anesthesiology Consultation ---
Date of Service April 20, 2024 Assessment & Plan (1) Encounter for pre-operative examination: Chart Review Chart Review: Patient NOT seen in Pre Admission Testing Consults Requested none Additional Notes Patient with hypokalemia 2.8 upon admission with fractured femur. Nephrology consulted, repeat potassium 3.0. Given patients CAD with placement earlier this year would be preferred candidate for spinal anesthesia, however patients recent plavix use precludes her from that option. Although patient presents higher cardiovascular risk under general anesthesia, surgeon feels case is urgent and would like to proceed sooner then would be needed to administer spinal anesthesia safely. Will proceed with general anesthesia. History Surgery Operation Date: 04/20/24 12:00 Proposed Procedures p Intramedullary Greyson Femur - [place] MD Height/Weight Height: 5 ft 4 in Weight: 79.3 kg Allergies Allergy/AdvReac Type Severity Reaction Status Date / Time insect venom Allergy Intermediate Swelling Verified 03/15/24 13:09 adhesive tape Allergy Mild Rash Verified 03/15/24 13:09 dulaglutide [From [facility]] AdvReac Mild Constipation, Verified 03/15/24 13:09 vomiting Medications Home Medications Medication Instructions Recorded Confirmed Last Taken lancets (Accu-Chek Fastclix Lancet #50 ea 12/16/18 03/15/24 Unknown Drum) aspirin 81 mg chewable tablet 81 mg PO QAM 11/07/19 03/15/24 1 Day Ago ~01/26/24 mecobalamin (vitamin B12) 1,000 1,000 mcg PO QAM 09/13/20 03/15/24 06/19/23 mcg chewable tablet (B12 Active) blood sugar diagnostic (Accu-Chek 10/15/21 03/15/24 Unknown SmartView Test Strips) cholecalciferol (vitamin D3) 62.5 62.5 mcg PO HS 06/06/22 03/15/24 1 Day Ago mcg (2,500 unit) capsule ~01/26/24 Walking Cane #1 ea 06/30/23 03/15/24 Unknown triamcinolone acetonide 0.1 % 1 applic topical BID PRN Anxiety 07/28/23 03/15/24 01/26/24 topical ointment clopidogrel 75 mg tablet 75 mg PO QAM #90 tabs 08/18/23 03/15/24 01/26/24 pen needle, diabetic 32 gauge x #100 ea 08/24/23 03/15/24 Unknown 5/32" (BD Nicki 2nd Gen Pen Needle) buspirone 7.5 mg tablet 7.5 mg PO DAILY PRN anxiety #90 09/04/23 03/15/24 Unknown tabs furosemide 40 mg tablet 80 mg PO QAM 09/08/23 03/15/24 01/26/24 vitamin B complex and vitamin C 1 cap PO QAM #90 caps 12/15/23 03/15/24 1 Day Ago no.20-folic acid 1 mg capsule ~01/26/24 (Renal Caps) blood-glucose sensor (FreeStyle #2 ea 01/27/24 03/15/24 Unknown Kvng 3 Plus Sensor device) rosuvastatin 40 mg tablet 40 mg PO PM 01/27/24 03/15/24 01/26/24 21:00 insulin aspart U-100 100 unit/mL 1 sliding scale dose SC ACHS #10 mL 02/04/24 03/15/24 Unknown subcutaneous solution (Novolog U-100 Insulin aspart) metoprolol succinate 50 mg 50 mg PO DAILY 03/01/24 03/15/24 Unknown tablet,extended release 24 hr insulin degludec 100 unit/mL (3 20 unit subcut DAILY 03/15/24 03/15/24 Unknown mL) subcutaneous pen potassium chloride 10 mEq 20 meq (2 x 10 mEq) PO BID #120 04/15/24 Unknown tablet,extended release tabs Active Medications Generic Name Dose Route Start Last Admin Trade Name Freq PRN Reason Stop Dose Admin Hydromorphone HCl 0.25 mg 04/20/24 01:37 04/20/24 03:26 Hydromorphone Inj 0.5 Mg/0.5 Ml Syr IV 05/04/24 01:36 0.25 mg Q3H PRN Administration Moderate Pain (Scale 4, 5, 6) Hydromorphone HCl 0.5 mg 04/20/24 01:37 04/20/24 10:53 Hydromorphone Inj 0.5 Mg/0.5 Ml Syr IV 05/04/24 01:36 0.5 mg Q3H PRN Administration Severe Pain (Scale 7, 8, 9,10) Piperacillin Sod/Tazobactam Sod 4.5 gm in 100 mls @ 25 mls/hr 04/20/24 10:00 04/20/24 09:31 Zosyn IV 04/30/24 09:59 25 mls/hr Q12H EARNESTINE Administration Protocol Insulin Aspart 0 units 04/20/24 06:00 04/20/24 06:18 Insulin Aspart Per Unit Charge SC 05/20/24 05:59 1 units Q6 EARNESTINE Administration Insulin Glargine 10 units 04/20/24 09:00 04/20/24 09:41 Lantus Per Unit Charge SC 05/20/24 08:59 10 units DAILY EARNESTINE Administration Metoprolol Succinate 50 mg 04/20/24 09:00 04/20/24 09:30 Metoprolol Succ 50mg Ext Rel Tab PO 05/20/24 08:59 50 mg DAILY EARNESTINE Administration Past Medical History Medical History Acute cholecystitis Heart failure with preserved ejection fraction CAD (coronary artery disease) Obesity Non-ST elevation PR (NSTEMI) Pulmonary edema Folate deficiency anemia Metabolic acidosis Stage 5 chronic kidney disease not on chronic dialysis AV fistula right arm--per pt not currently using yet Periodontal pocket Carious teeth Sleep apnea Per 2009 polysomnography (per 02/2021 pulmonology note)- pt declined treatment or repeat study-NO DEVICE Diastolic CHF Chronic kidney disease, stage 4 (severe) Secondary hyperparathyroidism of renal origin History of DVT (deep vein thrombosis) Multiple "small" DVTs (25+ years ago, 6 years ago) Fibroids History of hypothyroidism HX-NO MEDS Sensorineural hearing loss (SNHL) of both ears Family history of colon cancer in mother Past Family History Family History Mother Diabetes Renal cell cancer Heart disease Colorectal cancer Hypertension Brother Diabetes Renal cell cancer Heart disease Lung cancer Hypertension Gallbladder disease Father Prostate cancer Heart disease Hypertension Grandmother (Maternal) Colorectal cancer Aunt Diabetes Other Alzheimer disease No family history of adverse response to anesthesia Denies family history of Ovarian cancer Myocardial infarction Breast cancer Past Surgical History Surgical History Hx laparoscopic cholecystectomy (01/28/24) Robotic Laparoscopic Cholecystectomy(Not Applicable) - Oseas Madrigal DO, FACS History of coronary artery stent placement S/P arteriovenous (AV) fistula creation RIGHT arm 03/27/21 @ [facility] Dr. Subramanian History of dental surgery History of surgery on arm Right Arm basilic vein transposition 2nd stage @ [facility] Dr. Subramanian 06/10/21 History of colonoscopy Social History Smoking Status: Never smoker Do You Dip or Chew Tobacco: No Hx Alcohol Use: Yes Alcohol type: wine alcohol intake frequency: holidays/special occasions only Hx Substance Use: No substance use type: does not use Physical Exam Vital Signs Last Vital Signs Temp 98.4 F 04/20/24 07:00 Pulse 88 04/20/24 08:13 Resp 18 04/20/24 07:00 BP 152/60 H 04/20/24 07:00 Pulse Ox 97 04/20/24 07:00 O2 Del Method Room Air 04/20/24 07:00 Testing Laboratory Results 04/20/24 00:40 04/20/24 09:40 PT 10.7 Seconds (9.0-12.0) 04/20/24 00:40 INR 1.0 (0.9-1.1) 04/20/24 00:40 APTT 22 Seconds (21-31) 04/20/24 00:40 Hemoglobin A1c 7.1 % (4.5-5.6) H 04/20/24 06:29 Blood Type O Positive 04/20/24 08:20 Antibody Screen NEGATIVE 04/20/24 08:20 04/20/24 04/20/24 06:09 01:17 POC Glucose 161 H 206 H Electrocardiogram Date: 04/20/24 Findings: + NSR @ sinus arrythmia, prolonged QT Echocardiogram Date: 01/28/24 EF: 55-60 LV Function: normal
[2024-04-20] MEDS ORDERED: PROPOFOL IV EMULSION 10 MG/ML 20 ML VIAL IV ONE (11:43)
[2024-04-20] MEDS ORDERED: DEXAMETHASONE SOD INJ 4 MG/ML VIAL ONE (11:43)
[2024-04-20] MEDS ORDERED: ONDANSETRON INJ 2 MG/ML 2 ML VIAL ONE (11:43)
[2024-04-20] MEDS ORDERED: fentaNYL citrate PF 100 MCG/2 ML VIAL ONE ×2 (11:43→18:06)
[2024-04-20] MEDS ORDERED: LIDOCAINE 2% 2 ML VIAL/AMP(20MG/ML) INFIL ONE (11:43)
[2024-04-20] MEDS ORDERED: ROCURONIUM BROMIDE 10 MG/ML 5 ML VIAL IV ONE (11:43)
[2024-04-20] MEDS: EPOETIN ALFA 20,000 UNITS/ML VIAL SQ STA (11:58)
--- NOTE | 2024-04-20 11:58 | Electrocardiogram Report ---
Test Reason : Blood Pressure : */* mmHG Vent. Rate : 87 BPM Atrial Rate : 87 BPM P-R Int : 158 ms QRS Dur : 94 ms QT Int : 412 ms P-R-T Axes : 56 -1 57 degrees QTcB Int : 495 ms Sinus rhythm with marked sinus arrhythmia Nonspecific ST abnormality Anterior leads Prolonged QT Abnormal ECG When compared with ECG of 27-Jan-2024 18:07, Premature atrial complexes are no longer Present T-wave inversion in Lateral leads no longer present Confirmed by Gentry Gurrola ([id number]) on 04/20/2024 11:57:58 AM Referred By: REFERRED SELF Confirmed By: Gentry Gurrola
[2024-04-20] MEDS: VANCOMYCIN HCL 1,000 MG/270 ML BAG IV SCH (12:22)
[2024-04-20] MEDS ORDERED: ePHEDrine sulfate 50 MG/ML AMP IV PRN (16:10)
[2024-04-20] MEDS ORDERED: ATROPINE SULFATE 0.1 MG/ML 10ML SYR IV PRN (16:10)
[2024-04-20] MEDS ORDERED: fentaNYL citrate PF 100 MCG/2 ML VIAL IV PRN (16:10)
[2024-04-20] MEDS ORDERED: VASOPRESSIN 20 UNIT/ML VIAL ONE (16:30)
[2024-04-20] MEDS ORDERED: ceFAZolin 330 MG/ML 1 GM VIAL ONE (16:37)
--- NOTE | 2024-04-20 16:39 | Communication Note ---
Date of Service: April 20, 2024 seen in follow-up from early a.m. admission. Other than hip pain she feels okay. No chest pain no shortness of breath no easy fatigability, no new d ecrease in exercise tolerance. Also no abdominal pain no nausea (other than related to pain after she broke her hip) no vomiting, occasional diarrhea but nothing acute. No fevers chills or sweats. Vitals noted, in general she is awake and alert pleasant no distress. HEENT normocephalic atraumatic mucous membranes moist. cardio regular no rubs murmurs or gallops lungs are clear bilaterally no rales rhonchi wheezes good effort abdomen is soft nondistended nontender no masses organomegaly hip fracturediscussed with orthopedicsseems to be basically is medically optimized as it is a realistic, and especially given the "ticking clock" of morbidity and mortality the longer a fracture goes without repair/the longer the patient is at bedrestoverall risk/benefit favors fixing the fracture today. Postop, PT/OT eval and treat. Outpatient bone health management for presumed osteoporosis Transaminitisno abdominal symptoms, bilirubin and alk phos are normalshe did have her gallbladder out a few months ago and her liver enzymes were reasonably similar then; at the same time she has no abdominal symptoms. Transient/nonspecific, even wonder if the fracture led to a degree of rhabd omyolysis and this is more of a transaminitis from muscle enzymeswhile there is no compelling need to get labs urgently given her overall otherwise stable clinical status, I will add a CPK total to her next check in addition to trending her AST/ALT enzymes. Given no abdominal symptoms and reassuring imaging, I am unconvinced there is anything going on with cholangitis, does not seem to be infectiousand therefore will stop the Zosyn. ESRD on dialysisappreciate nephrology assistance. Type 2 diabetes on hadrwmeH3b 7.1, sugars improving to where they are in a reasonable range for inpatient care todaycontinue basal bolus insulin management. Anticipate a bit of a "moving target" given physiologic stress followed by surgery followed by resuming p.o. hypokalemiareplace, follow elevated troponinseems to be very mild myocardial demand ischemiarecheck to ensure it is not trending in any directionbut given how asymptomatic she Laura highly doubt this is of any true clinical significance. DVT prophylaxisSCDs currently ordered, postop/tomorrow anticipate the need to move forward with pharmacologic prophylaxisgiven her ESRD, as long as she has not suffered any significant bleeding and looks is stable as I anticipate, would appreciate initiation of heparin subcu.
[2024-04-20] MEDS ORDERED: NEOSTIGMINE METHYLSULFATE 1 MG/ML 10ML VIAL ONE (18:01)
[2024-04-20] MEDS ORDERED: GLYCOPYRROLATE 0.2 MG/ML VIAL ONE (18:01)
[2024-04-20] MEDS: BUPIVACAINE 0.5 % 5 MG/1 ML MPF 30ML VIAL ONE (18:23)
[2024-04-20] MEDS: LIDOCAINE 1% LOCAL 20 ML VIAL ONE (18:24)
--- NOTE | 2024-04-20 18:40 | Operative Report ---
Post Operative Report Pre & Post Diagnosis Operation Date: 04/20/24 12:00 Pre-Op Diagnosis: Right Intertrochanteric hip fracture Post-Op Diagnosis: Same I identified the patient and participated in the time-out.: Yes Procedure Operation Date: 04/20/24 12:00 Actual Procedures p Trochanteric femoral nailing Femur(Right) - [place] Orlando MD Surgeon Chico Orlando MD Director Of Plant Operations Deonte Morrissey PA-C Estimated Blood Loss 50 Findings Consistent with Post-Op Diagnosis Specimens None Anesthesia Type General Regional Complications none Disposition Accompanied Patient To Recovery: No Disposition: Recovery Room Indications Margaux is 73 years old. She has kidney disease and is on dialysis. Diabetes. She fell injuring her right hip last evening sustaining a displaced intertrochanteric fracture. We talked about her treatment options and she elected to proceed with operative intervention. She received a preop dose of vancomycin. The planned surgical time was delayed due to another surgical emergency.The vancomycin dose was several hours prior to the start of the procedure but likely maintained some serum concentration given her kidney disease. This was supplemented with a preop dose of Ancef. Since the time of her injury the patient has noticed the onset of the weakness in her right foot and may have developed a foot drop. Description of Procedure Informed consent. Patient identified. She identified the procedure site as the right hip. I marked with my initials. A preoperative surgical timeout is performed. A preop dose of IV antibiotics was given. She received the original dose of vancomycin which was several hours prior to surgery. This was supplemented with a dose of Ancef. She also was given TXA. She was taken to the operating room where the anesthetic was administered. She was positioned supine on the OR fracture table. Padded perineal post was utilized. The legs were placed into balanced scissors traction. The feet were padded and the right leg was elevated and the left leg lowered. The torso was secured to the table with the left arm out on an armboard and the right arm folded across the chest with padding. The torso was secured to the table with tape. The table was air planed away from the fracture site. Traction and internal rotation were applied which resulted in an anatomical reduction on the AP view using fluoroscopy. On the lateral view the reduction was good with slight apex anterior angulation and slight fracture displacement both which were acceptable and corrected with gentl e anterior pressure during implant insertion. DVT prophylaxis postop with early mobility and mechanical devices and Eliquis. Fluoroscopic guidance utilized. A routine prep and drape. Fluoroscopic guidance was utilized to identify the greater trochanter and the proper incisional site. The incision was made approximately 6 to 8 cm in length just proximal to the tip of the greater trochanter. The skin and subcutaneous tissues were sharply incised followed by the gluteal fascia. This gave access to the tip of the greater trochanter. A guidepin was introduced which went into the fracture site both found to be in good position in both the AP and lateral planes. The proximal reamer was utilized down to the level of the lesser trochanter. This was followed by the insertion of the intramedullary guide ledy. Which was found to be intramedullary in multiplanar fluoroscopy. The tip of the ledy was placed at the top of the patella and the ledy length was determined to be 360 mm. I selected an 11 mm diameter ledy. Reaming began at 10 mm and proceeded up to 12 with some cortical chatter at 12 and 12.5 mm. The ledy was inserted over the guidewire and seated to the proper depth. Fluoroscopic guidance utilized to determine the appropriate orientation on the lateral view. The insertion jig was applied and a percutaneous stab wound was made for insertion of the triple trocar. This was placed down to the bone and a guidepin was drilled into the center center position based on AP and lateral fluoroscopic images. The length was determined to be 90 mm. The lateral reamer was utilized followed by the triple reamer set at 90. The spiral blade was introduced and fully seated and was within 1 cm of the subchondral bone in both the AP and lateral planes. It was in the center center position of the femoral head. The setscrew was advanced fully and then backed off one half turn for dynamization and the proximal insertion apparatus was then removed. A distal interlocking screw was inserted in the dynamic slot using the perfect [place] technique in the percutaneous fashion. Plant Specialist images of the fracture site, hip area as well as at the distal interlocking screw were p erformed. Irrigation was performed. The distal incision was closed with 2-0 Vicryl and kit. The middle incision was closed with 0 Vicryl 2-0 Vicryl and kit. Hemostasis was achieved with electrocautery. Proximally the gluteal fascia was closed with interrupted #1 Vicryl's followed by 0 Vicryl's with a subcutaneous fat layer 2-0 Vicryl's for the dermal layer and kit. Local anesthetic was injected into the skin and subcutaneous tissues of all the incisions. A saw sterile dressing was applied Xeroform 4 x 4's ABDs and foam tape. Patient waken from anesthesia and taken off the fracture table and returned to the hospital bed in stable condition. There were no specimens or complications counts were correct and blood loss is estimated to be 50 cc. At the conclusion of the ope ration I spoke to her brother informed him my findings. Postoperative plan discussed. The plan is to admit her to the hospital. Start Eliquis the morning after surgery. Routine course of postop IV antibiotics. PT and OT. She may weight- bear as tolerated. A Synthes trochanteric femoral nail was inserted 11 mm diameter by 360 mm length with a 90 mm spiral blade and a 40 mm distal interlocking screw I attest to the content of the Intraoperative Record and any orders documented therein. Any exceptions are noted below.
--- NOTE | 2024-04-20 19:05 | Anesthesiology Progress Note ---
Date of Service April 20, 2024 Anesthesia Post Procedure Vital Signs Vital Signs: Temp Pulse Pulse Pulse Resp BP BP 04/20/24 18:45 85 18 133/58 L 04/20/24 18:37 97.9 F 87 16 150/44 H 04/20/24 15:59 82 04/20/24 14:00 04/20/24 11:42 90 18 176/83 H 04/20/24 10:00 04/20/24 08:13 88 04/20/24 07:00 98.4 F 88 18 152/60 H 04/20/24 06:46 04/20/24 04:16 94 H 04/20/24 03:32 04/20/24 03:32 98.4 F 78 20 164/74 H 04/20/24 03:12 98.4 F 78 20 164/74 H 04/20/24 03:12 04/20/24 02:45 80 18 152/82 H 04/20/24 01:15 88 20 177/89 H 04/20/24 00:21 92 H 04/20/24 00:16 98.6 F 91 H 22 178/89 H Pulse Ox Pulse Ox O2 Del Method O2 Del Method O2 Flow Rate 04/20/24 18:45 100 Oxymask 8 04/20/24 18:37 100 Oxymask 8 04/20/24 15:59 04/20/24 14:00 100 Room Air 04/20/24 11:42 100 Room Air 04/20/24 10:00 97 Room Air 04/20/24 08:13 04/20/24 07:00 97 Room Air 04/20/24 06:46 97 Room Air 04/20/24 04:16 04/20/24 03:32 Room Air 04/20/24 03:32 98 Room Air 04/20/24 03:12 98 Room Air 04/20/24 03:12 98 Room Air 04/20/24 02:45 99 04/20/24 01:15 99 04/20/24 00:21 04/20/24 00:16 97 Room Air Transfer of Care Handoff Completed per policy Notes Mental Status: alert / awake / arousable and participated in evaluation Patient Amnestic to Procedure: Yes Nausea / Vomiting: adequately controlled Pain: adequately controlled Airway Patency, RR, SpO2: stable & adequate BP & HR: stable & adequate Hydration State: stable & adequate Anesthetic Complications: no major complications apparent and Pt Satisfied with anesthetic care
[2024-04-20] MEDS ORDERED: VANCOMYCIN CONSULT ACTIVE PRN (19:33)
[2024-04-20] MEDS ORDERED: PANTOprazole 40 MG/10 ML SYR IV SCH (21:00)
[2024-04-20] MEDS: CARBOHYDRATES FOR HYPOGLYCEMIA PO PRN (21:09)
[2024-04-20 22:40] LABS: Troponin I High Sensitivity 100.5 pg/ml (0-14)
[2024-04-21] MEDS ORDERED: Nursing to Pharmacy Communication SCH (02:45)
[2024-04-21] MEDS ORDERED: VANCOMYCIN HCL 1,250 MG in SODIUM CHLORIDE 0.9% 250 ML IV SCH (05:00)
[2024-04-21] MEDS: VANCOMYCIN HCL 1,250 MG in SODIUM CHLORIDE 0.9% 250 ML IV ONE (05:08)
[2024-04-21 05:39] LABS: Basophils # (auto) 0.02 K/uL (0.00-0.20); Basophils % (auto) 0.2 %; Hematocrit (blood only) 22.1 % (37.0-47.0); Hemoglobin 7.8 g/dl (12.0-16.0); Immature Granulocytes # (auto) 0.05 K/uL (0.01-0.20); Immature Granulocytes % (auto) 0.6 %; Lymphocytes # (auto) 0.67 K/uL (1.20-3.40); Lymphocytes % (auto) 7.4 %; Mean Corpuscular Hemoglobin 33.5 pg (25.0-34.0); Mean Corpuscular Hgb Conc 35.3 g/dL (32.0-36.0); Mean Corpuscular Volume 94.8 fL (80.0-100.0); Mean Platelet Volume 10.5 fL (9.4-12.4); Monocytes # (auto) 0.49 K/uL (0.11-0.59); Monocytes % (auto) 5.4 %; Neutrophils # (auto) 7.84 K/uL (1.40-6.50); Neutrophils % (auto) 86.4 %; Platelet Count 186 K/uL (130-400); RDW Coefficient of Variation 14.1 % (11.5-14.5); RDW Standard Deviation 48.2 fL (36.4-46.3); Red Blood Count 2.33 M/uL (4.20-5.40); White Blood Count 9.07 K/ul (4.8-10.8)
[2024-04-21 05:54] LABS: Polychromasia 1+
[2024-04-21 06:07] LABS: Albumin Globulin Ratio 0.9 (0.9-2); Albumin Level 2.1 gm/dl (3.4-5.0); BUN Creatinine Ratio 4.9 (10-20); Bilirubin,Total 0.4 mg/dl (0.2-1.0); Calcium 8.5 mg/dl (8.6-10.3); Globulin 2.4 gm/dl (2.5-4.0); Potassium 3.8 mmol/L (3.5-5.1); Total Protein 4.5 gm/dl (6.0-8.3); Troponin I High Sensitivity 103.8 pg/ml (0-14)
[2024-04-21] MEDS: INSULIN ASPART PER UNIT CHARGE SC SCH (08:11)
[2024-04-21] MEDS: CLOPIDOGREL BISULFATE 75 MG TAB PO SCH (08:24)
[2024-04-21] MEDS: APIXABAN 2.5 MG TAB PO SCH (08:24)
--- NOTE | 2024-04-21 08:30 | Fluoroscopy Report ---
FL femur RT 2V CLINICAL HISTORY: TROCH NAIL RT TECHNIQUE: 5 views were obtained with the C-arm in the OR with the above procedure. Total fluoroscopy time was 135.7 seconds. Radiation dose was 31.69 mGy. Comparison: Comparison is made to hip radiograph 04/20/2024 FINDINGS/IMPRESSION: Intraoperative images were obtained of right femoral trochanteric nail placement . Please correlate with intraoperative fluoroscopy and operative report. ACT 112: Negative or not required by law. Electronically signed by: Jose Tao M.D. 04/21/2024 8:27 AM
[2024-04-21] MEDS ORDERED: ACETAMINOPHEN 325 MG TAB PO PRN (09:20)
--- NOTE | 2024-04-21 10:08 | Orthopedic Progress Note ---
Date of Service April 21, 2024 Assessment & Plan (1) Status post-operative repair of hip fracture: Plan: The patient was educated regarding today's findings. Conservative care measures were discussed. Continue PT/OT with weightbearing as tolerated on the right leg. Postsurgical dressings will be changed tomorrow. Continue ice application to reduce pain Anticipate the patient will need placement. Follow-up in the office in 2 weeks for reassessment and staple removal Continue BONNIE stockings, compression boots, and oral plavix and eliquis for DVT prophylaxis Nursing was made aware of the bleeding from the rectal area. Will continue to follow. Admission and Anticipated Discharge Date Admission Date: April 20, 2024 Subjective This 73-year-old female is seen today in her room. She is 1 day status post right hip ORIF with trochanteric nail. She states her pain is tolerable. She denies any chest pain, shortness of breath, nausea, vomiting, numbness, or tingling. She is currently working with physical therapy. Has been out of bed already. No additional complaints. Physical Exam Physical Exam: General: Well-developed, well-nourished, elderly female, in no acute distress. Sitting in a bedside chair. Alert and oriented. Skin: Warm and dry with good turgor. No rashes. No significant ecchymosis or edema. She has intact postsurgical dressings on right hip. There is no bleeding through the dressings. They were left in place and will be changed tomorrow. She does have some blood on her gown at her gluteal cleft. Inspection reveals no external skin tears. Possibility of external hemorrhoid was considered. I think this is most likely. Musculoskeletal: The patient is able to stand on her right leg with assistance. She is able to flex the hip with active assist. She cannot do a straight leg raise at this time. Intact dorsiflexion and plantarflexion of the right ankle and toes. It is improved since yesterday but not quite equal to the left leg. Neurologic: Gross sensation is intact across the right leg by soft touch. Peripheral pulses are 2+. Results & Data Vital Signs (Past 12 Hours) Vital Signs Temp Pulse Pulse Resp BP Pulse Ox O2 Del Method 04/21/24 07:16 37.0 C 90 18 123/68 97 Room Air 04/21/24 03:15 36.7 C 101 H 18 105/62 98 Nasal Cannula 04/20/24 23:15 36.3 C L 89 16 159/80 H 100 Nasal Cannula 04/20/24 23:00 96 H 04/20/24 22:11 Room Air Laboratory Results CBC obtained this morning shows a white count of 9.07. H&H of 7.8 and 22.1. ANC 186,000. Sodium 134, potassium 3.8. 97. BUN of 40 with creatinine 8.2. History shows this is variable from 4-8. She does peritoneal dialysis. Glucose this morning 100. Troponin this morning is 104.9, which is consistent over the last 2 days. Vitamin D level obtained this morning is low at 24.9.
--- NOTE | 2024-04-21 11:30 | Nephrology Progress Note ---
Date of Service April 21, 2024 Assessment & Plan (1) ESRD (end stage renal disease): (2) Fracture of hip, right, closed: (3) Anemia due to chronic kidney disease: (4) Hypertension: Plan ESKD on peritoneal dialysis, admitted after a fall and fracture of the right hip, waiting for OR. Hemoglobin relatively stable, blood pressure fair. Potassium was low at 2.8, currently getting IV and oral potassium supplement and repeat potassium was 3.0. Had surgery for right hip fracture on 04/20/2024. Potassium this morning was 3.8. Blood pressure well-controlled. Volume status acceptable. --resume dialysis tonight --Epogen 36679 units x 1 dose given on 04/20/24 --Right arm nephrology precautions --Continue on oral potassium supplement --Continue on regular potassium diet once diet is resumed. Admission and Anticipated Discharge Date Admission Date: April 20, 2024 Roman Dyson was seen and evaluated this morning. She had right hip surgery yesterday, surgery went well, reports still having pain but not as bad as she expected. No shortness of breath or chest pain. Blood pressure well-controlled. Review of Systems Review of Systems: Detailed review of system was done and pertinent positives and negatives are mentioned above. Physical Exam Constitutional: WD/WN, vitals as above no acute distress Eyes: + anicteric sclerae Respiratory: no respiratory distress Auscultation: lungs clear to auscultation bilaterally Cardiovascular: Rate/Rhythm: regular rate and regular rhythm Extremities: + AV fistula (Rt BC AVFn with thrill and bruit); no edema Skin: no rashes, warm and dry Neurologic: no focal motor deficits Psychiatric: Orientation: alert and oriented x 3 Affect: euthymic affect Results & Data Vital Signs (Past 12 Hours) Vital Signs Temp Pulse Pulse Resp BP Pulse Ox O2 Del Method 04/21/24 10:34 83 04/21/24 07:16 37.0 C 90 18 123/68 97 Room Air 04/21/24 03:15 36.7 C 101 H 18 105/62 98 Nasal Cannula PG Care Time/CCT Total # of Minutes Spent Total Time Spent with Patient: Total time spent is greater than 50% in coordination of care (as documented) at patient's floor/unit and/or counseling patient: Coding Level of Care Code 10941 SUB INP/OBS CARE 2/35MIN Diagnoses ESRD (end stage renal disease) N18.6 Fracture of hip, right, closed S72.001A Encounter type: initial encounter Anemia due to chronic kidney disease N18.9; D63.1 Essential hypertension I10 Hypertension type: essential hypertension (2) Fracture of hip, right, closed Encounter type: initial encounter Qualified Code(s): S72.001A - Fracture of unspecified part of neck of right femur, initial encounter for closed fracture (4) Hypertension Hypertension type: essential hypertension Qualified Code(s): I10 - Essential (primary) hypertension
--- NOTE | 2024-04-21 11:49 | Hospitalist Progress Note ---
Date of Service April 21, 2024 Assessment & Plan (1) Fracture of hip, right, closed: (2) Transaminitis: (3) Anemia due to chronic kidney disease: (4) Hypokalemia: (5) ESRD (end stage renal disease): (6) CAD (coronary artery disease): (7) Vitamin D deficiency: (8) Type 2 diabetes mellitus with obesity: (9) Hypercholesterolemia: (10) Anxiety: Plan This patient is a 73-year-old female with a PMH of ESRD on PD, DM 1.5, anxiety, vitamin D deficiency, CAD s/p LIBRA to the LAD, HFpEF, hyperlipidemia, here with a fall and right hip fracture. #Closed right hip fracture-s/p mechanical fall after tripping. Now s/p ORIF on 04/[address] Orlando-appreciate orthopedic surgery management. Doing well postoperatively Continue oxycodone, acetaminophen, or IV Dilaudid as needed for pain Continue PT/OT with weightbearing as tolerated on RLE Presurgical dressing to be changed on 04/22 Continue ice and follow-up in orthopedic surgery office in 2 weeks for postop follow-up and staple removal BONNIE rodriguez, SCDs, Eliquis for DVT prophylaxis #ESRD-On peritoneal dialysis as an outpatient, stable and with chronic hypokalemia requiring supplementation Consult to nephrology appreciated-plan for resumption of PD on the evening of 06/22 Follow BMP Resume home Lasix, Nephrocaps, oral potassium supplementation, vitamin D Receives Epogen as an outpatient #Transaminitis-AST is increased from 66-261 and ALT is increased to 104-266 after having had a laparoscopic cholecystectomy on 01/28/2024. CT abdomen/pelvis here shows moderate ascites which is from PD but otherwise no abnormalities in the biliary tract or liver. Initially placed on Zosyn and blood cultures collected but antibiotics since discontinued. Blood cultures remain no growth to date and there is no evidence of infection/cholangitis. LFTs are now improving. Likely due to hepatic congestion from volume overload-resuming peritoneal dialysis Peritoneal fluid culture collected by nephrology on 04/21 as she had 1 L of retained fluid for more than 24 hours-follow cultures Follow LFTs #Hypokalemia-chronic but acutely worsened on admission and was given extra supplementation Resume home potassium supplementation #Elevated troponin-likely chronically elevated in the setting of ESRD. No chest pains or evidence of ischemia on EKG #Rectal bleeding-small amount of blood on Chux pad under patient's bottom noted by orthopedics PA on the morning of 04/21. No visualized blood in stool from previous day and no bleeding from the hip wound. Okay to continue Eliquis and Plavix Monitor CBC and for further bleeding from any source #Anemia of CKD/acute blood loss anemia-baseline hemoglobin 10, hemoglobin now down to 7.8 likely from blood loss from hip fracture. Follow CBC and transfuse if hemoglobin less than 7 Receives Epogen as an outpatient #Diabetes mellitus II- Currently on lower dose of basal insulin than previous but may need to increase as p.o. intake improves now s/p surgery Placed on Accu-Cheks with NovoLog SSI Follows with endocrinology #Hypertension/CAD-with a history of LIBRA to the LAD in 05/2023, follows with Dr. Kumar of [facility] cardiology. No acute issues Continue metoprolol succinate with hold parameters Continue Plavix but holding aspirin while on Eliquis for DVT prophylaxis for hip surgery. Once Eliquis is discontinued, should resume aspirin Resume home rosuvastatin #Vitamin D deficiency-vitamin D level low here at 24 Resume home vitamin D supplementation and continue calcitriol #Anxiety-stable Resume home as needed BuSpar DVT prophylaxis-Eliquis low-dose, BONNIE Paula Disposition-continued stay on telemetry, PT/OT evals recommending rehab- discussed with case management-referral made to [facility], hopeful for discharge to [facility] on 04/22 if remains stable Admission and Anticipated Discharge Date Admission Date: April 20, 2024 Anticipated date of discharge: 04/22/24 Subjective Patient having some pain in the hip when she tries to stand with PT but otherwise doing well. She is eating and not having nausea. No chest pain or shortness of breath. There was some blood on her pad under her bottom this morning and it is unclear if it was coming rectally or not. She had a bowel movement yesterday that was nonbloody. I discussed her care with nephrology. Telemetry with normal sinus rhythm and PACs with rates in the 80s Physical Exam Constitutional: WD/WN, vitals as above Respiratory: normal respiratory effort, lungs clear to auscultation Cardiovascular: Rate/Rhythm: regular rate and regular rhythm Heart Sounds: no murmur Extremities: + edema (1+ edema ankles and distal legs bilaterally) Gastrointestinal (Abdomen): Inspection/Auscultation: normal bowel sounds; + abdomen abnormal to inspection (PD catheter in place with dressing clean dry and intact) and abdomen not distended Percussion/Palpation: abdomen soft; abdomen nontender Musculoskeletal: Hip: + hip abnormal to inpsection (Dressing in place over right hip incision C/D/I) Psychiatric: A+Ox3, euthymic affect Results & Data Results & Data Vital Signs (Past 12 Hours) Vital Signs Temp Pulse Pulse Resp BP Pulse Ox O2 Del Method 04/21/24 11:46 36.7 C 80 17 100/48 L 99 Room Air 04/21/24 10:34 83 04/21/24 07:16 37.0 C 90 18 123/68 97 Room Air 04/21/24 03:15 36.7 C 101 H 18 105/62 98 Nasal Cannula Laboratory Results CBC, CMP, troponin, CK, vitamin D level reviewed PG Care Time/CCT Total # of Minutes Spent Total Time Spent with Patient: Total time spent is greater than 50% in coordination of care (as documented) at patient's floor/unit and/or counseling patient: Coding Level of Care Code 04003 SUB INP/OBS CARE 2MIN Diagnoses Fracture of hip, right, closed S72.001A Encounter type: initial encounter Transaminitis R74.01 Anemia due to chronic kidney disease N18.9; D63.1 Hypokalemia E87.6 ESRD (end stage renal disease) N18.6 CAD (coronary artery disease) I25.10 Vitamin D deficiency E55.9 Type 2 diabetes mellitus with obesity E11.69; E66.9 Hypercholesterolemia E78.00 Anxiety F41.9 (1) Fracture of hip, right, closed Encounter type: initial encounter Qualified Code(s): S72.001A - Fracture of unspecified part of neck of right femur, initial encounter for closed fracture
[2024-04-21] MEDS: POTASSIUM CHLORIDE CRTAB 20 MEQ TABCR PO SCH (12:32)
[2024-04-21 13:32] LABS: Hep B Surface Ag with confirm Negative (Negative)
[2024-04-21 13:41] LABS: Hepatitis B Surface Antibody Immune
[2024-04-21] MEDS: ROSUVASTATIN CALCIUM 20 MG TAB PO SCH (20:49)
[2024-04-21] MEDS: CHOLECALCIFEROL 25 MCG (1000 UNITS) TAB PO SCH (20:50)
[2024-04-21] MEDS: oxyCODONE HCL IR 5 MG TAB (IMMEDIATE RELEASE) PO PRN (23:07)
[2024-04-22 06:35] LABS: Basophils # (auto) 0.04 K/uL (0.00-0.20); Basophils % (auto) 0.4 %; Eosinophils # (auto) 0.38 K/uL (0.00-0.50); Eosinophils % (auto) 3.6 %; Hematocrit (blood only) 21.6 % (37.0-47.0); Hemoglobin 7.5 g/dl (12.0-16.0); Immature Granulocytes # (auto) 0.06 K/uL (0.01-0.20); Immature Granulocytes % (auto) 0.6 %; Lymphocytes # (auto) 1.11 K/uL (1.20-3.40); Lymphocytes % (auto) 10.5 %; Mean Corpuscular Hemoglobin 33.8 pg (25.0-34.0); Mean Corpuscular Hgb Conc 34.7 g/dL (32.0-36.0); Mean Corpuscular Volume 97.3 fL (80.0-100.0); Mean Platelet Volume 10.6 fL (9.4-12.4); Monocytes # (auto) 0.92 K/uL (0.11-0.59); Monocytes % (auto) 8.7 %; Neutrophils # (auto) 8.03 K/uL (1.40-6.50); Neutrophils % (auto) 76.2 %; Platelet Count 187 K/uL (130-400); RDW Coefficient of Variation 14.3 % (11.5-14.5); RDW Standard Deviation 50.9 fL (36.4-46.3); Red Blood Count 2.22 M/uL (4.20-5.40); White Blood Count 10.54 K/ul (4.8-10.8)
[2024-04-22 06:58] LABS: Echinocytes 1+; Polychromasia 1+
[2024-04-22 07:04] LABS: Albumin Level 2.1 gm/dl (3.4-5.0); Bilirubin,Total 0.4 mg/dl (0.2-1.0); Calcium 8.2 mg/dl (8.6-10.3); Potassium 3.6 mmol/L (3.5-5.1)
[2024-04-22 07:11] LABS: Albumin Globulin Ratio 0.8 (0.9-2); BUN Creatinine Ratio 5.4 (10-20); Creatinine Clr Calc Pharmacy 7.1 ml/min; Globulin 2.6 gm/dl (2.5-4.0); Total Protein 4.7 gm/dl (6.0-8.3)
[2024-04-22] MEDS: CALCITRIOL 0.25 MCG CAPSULE PO SCH (08:28)
[2024-04-22] MEDS: NEPHROCAPS PO SCH (08:28)
[2024-04-22] MEDS: busPIRone 7.5 MG TAB PO PRN (08:29)
[2024-04-22] MEDS: FUROSEMIDE 80 MG TAB PO SCH (08:30)
[2024-04-22] MEDS: CYANOCOBALAMIN (B-12) 500 MCG TABLET PO SCH (08:30)
--- NOTE | 2024-04-22 10:57 | Discharge Summary ---
Discharge Summary Date of Service April 22, 2024 Principal Dx & Hospital Course #1 = Principal Diagnosis (1) Fracture of hip, right, closed: (2) Transaminitis: (3) Anemia due to chronic kidney disease: (4) Hypokalemia: (5) ESRD (end stage renal disease): (6) CAD (coronary artery disease): (7) Vitamin D deficiency: (8) Type 2 diabetes mellitus with obesity: (9) Hypercholesterolemia: (10) Anxiety: Plan This patient is a 73-year-old female with a PMH of ESRD on PD, DM 1.5, anxiety, vitamin D deficiency, CAD s/p LIBRA to the LAD, HFpEF, hyperlipidemia, here with a fall and right hip fracture. #Closed right hip fracture-s/p mechanical fall after tripping. Now s/p ORIF on 04/[address] Orlando-appreciate orthopedic surgery management. Doing well postoperatively Continue oxycodone as needed, acetaminophen scheduled for pain. Continue PT/OT with weightbearing as tolerated on RLE Continue ice and follow-up in orthopedic surgery office in 2 weeks for postop follow-up and staple removal. Discussed with ortho derrick Ramos for DVT prophylaxis #ESRD-On peritoneal dialysis as an outpatient, stable and with chronic hypokalemia requiring supplementation Consult to nephrology appreciated. PD 04/21-04/22 Receives Epogen as an outpatient for anemia of CKD Has RUE AVF for HD access [facility] does not do PD, will do HD MWF while there. Discussed with Dr. Dyan edward, robyn to miss dialysis over weekend. Bumex 2 mg po bid through evening of 04/24 then HD will start 04/25 -hold furosemide and hold potassium supplement until off HD and PD resumed at home #Transaminitis-AST is increased from 66-261 and ALT is increased to 104-266 after having had a laparoscopic cholecystectomy on 01/28/2024. CT abdomen/pelvis here shows moderate ascites which is from PD but otherwise no abnormalities in the biliary tract or liver. Initially placed on Zosyn by ED but was discontinued. no evidence of infection/cholangitis. LFTs are now improving. Likely due to hepatic congestion from volume overload-resuming peritoneal dialysis -LFT improved 04/22 Peritoneal fluid culture collected by nephrology on 04/21 as she had 1 L of retained fluid for more than 24 hours-follow cultures -gram stain without bacteria and culture NGTD #Hypokalemia-chronic but acutely worsened on admission and was given extra supplementation Potassium normal today Per design lead hold potasssium supplement while on HD Resume home potassium supplementation once no longer on HD. #Rectal bleeding-small amount of blood on Chux pad under patient's bottom noted by orthopedics PA on the morning of 04/21. No visualized blood in stool from previous day and no bleeding from the hip wound. Okay to continue Eliquis and Plavix monitor for further bleeding. sounds like hemorrhoidal blood. #Anemia of CKD/acute blood loss anemia-baseline hemoglobin 10, hemoglobin now down to 7.5, blood loss from hip fracture. Hg stable overnight. Follow CBC and transfuse if hemoglobin less than 7 Receives Epogen as an outpatient #Diabetes mellitus II- Continue basal-bolus insulin Placed on Accu-Cheks with NovoLog SSI Follows with endocrinology #Hypertension/CAD-with a history of LIBRA to the LAD in 05/2023, follows with Dr. Kumar of [facility] cardiology. No acute issues Continue metoprolol succinate with hold parameters Continue Plavix but holding aspirin while on Eliquis for DVT prophylaxis for hip surgery. Once Eliquis is discontinued, should resume aspirin Resume home rosuvastatin #Elevated troponin-mild asymptomatic elevation, likely chronically elevated in the setting of ESRD. No chest pains or evidence of ischemia on EKG #Vitamin D deficiency-vitamin D level low here at 24 Resumed home vitamin D supplementation and continue calcitriol #Anxiety-stable Resume home as needed BuSpar Notes For Next Care Provider Peritoneal fluid culture - NGTD, pending BMP and CBC in a week or so Medication Changes From Visit Bumex 2 mg po bid until HD started Wednesday 04/25 Held home furosemide and potassium supplement until discharging home and resuming PD Admission HPI Per Admitting Provider The patient is a 73-year-old female with a past medical history including diabetes mellitus type 2 with obesity, hypercholesterolemia, nonproliferative diabetic retinopathy, GERD, anxiety, and D deficiency, ESRD on peritoneal dialysis as an outpatient but goes on hemodialysis and then patient. She presents to the emergency department with inability to bear weight on her right hip after a ground-level fall which brought in the piece of furniture at home. Discharge Exam PHYSICAL EXAMINATION Last 24h vital signs reviewed, see documentation in flowsheet General: comfortable appearing, no distress, very pleasant woman HEENT: Normocephalic, atraumatic, pupils round and equal, sclerae anicteric, no conjunctival injection, moist mucus membranes Lungs: normal work of breathing Heart: deferred Abdomen: Soft, nontender, nondistended. Bowel sounds present. PD catheter in place Extremities: Warm, dry, well-perfused. 1+ extremity edema. right upper extremity AV fistula right hip postop dressing in place no significant swelling no deformity no ecchymosis or strikethrough, right lower extremity DP pulses 2+ Neuro: Alert and oriented x 4, face symmetric, moves 4 extremities well Psych: Normal affect and behavior Discharge Plan Discharge Items Patient Disposition: Transfer Inpatient Rehab Fac Reason For Visit: CLOSED RT HIP FX, ESRD ON PD OUTPAT, HD INPA Discharge Diagnosis: Right hip fracture ESRD on peritoneal dialysis Condition on Discharge: Good Activity: Per Instructions section Weightbearing: Full weightbearing Non-emergency contact: Primary Care Provider and Surgeon Call non-emergency contact if: you have any medication questions, your symptoms worsen, your pain is not controlled, you have a fever, your wound has increased redness, your wound has increased drainage and your wound pain has increased Follow-up/Referrals: Chico Orlando MD [Surgeon] - Unruly Trujillo DO [Primary Care Provider] - Diet: Carb Consistent or DM2 Addtl Attending Provider Instructions: PT and OT evaluate and treat WBAT Follow up with Dr. Orlando in 2 weeks for wound check and staple removal Was on peritoneal dialysis through 04/22 Please continue hemodialysis thursday, , thursday Continue bumetanide 2 mg po bid through evening of 04/24, until Wednesday 04/25 when she resumes HD Hold potassium supplement and furosemide while on HD Access: RUE AVF no IVs or BP checks on right upper extremity Pending Studies at Discharge: No Stand-Alone Forms: My [facility] Skilled Items Patient informed of condition?: Yes DNR: No Discharge Level of Care: Acute rehab Communicable Disease: No Discharge Prognosis: Improving Lines: None Urinary Catheter: No Medications and DC Order Prescriptions: New bumetanide 2 mg tablet 2 mg PO [id number] Qty: 5 0RF Rx Instructions: last dose 04/24 pm, then hemodialysis will start 04/15 oxycodone 5 mg Tablet 5 - 10 mg PO Q4H PRN (Reason: pain) Qty: 0 0RF Eliquis 2.5 mg Tablet 2.5 mg PO BID Qty: 0 0RF acetaminophen 325 mg Tablet 650 mg PO Q6H Qty: 0 0RF bisacodyl 10 mg Suppository 10 mg PA DAILY PRNQty: 0 0RF magnesium hydroxide [Milk of Magnesia] 400 mg/5 mL Suspension 30 ml PO DAILY PRNQty: 0 0RF Continued clopidogrel 75 mg tablet 75 mg PO QAM Qty: 90 3RF (DME) pen needle, diabetic [BD Nicki 2nd Gen Pen Needle] 32 gauge x 5/32" needle See Rx Instructions .Route Qty: 100 11RF Rx Instructions: use to inject 3 times daily buspirone 7.5 mg tablet 7.5 mg PO DAILY PRN (Reason: anxiety) Qty: 90 3RF Renal Caps 1 mg capsule 1 cap PO QAM Qty: 90 3RF (DME) FreePeek@[employer] 3 Plus Sensor Device See Rx Instructions .Route Qty: 2 5RF Rx Instructions: change sensor Q15 D metoprolol succinate 50 mg tablet extended release 24 hr 50 mg PO DAILY Patient Comments: CONFIRMED W/ PT AND ON [facility] MED LIST 03/01/24 insulin degludec 100 unit/mL (3 mL) insulin pen 20 unit subcut DAILY Patient Comments: CONFIRMED W/ PT THAT SHE IS TAKING TRESIBA 18-20 UNITS DAILY. cholecalciferol (vitamin D3) 62.5 mcg (2,500 unit) capsule 62.5 mcg PO HS B12 Active 1,000 mcg tablet,chewable 1,000 mcg PO QAM (DME) lancets [Accu-Chek Fastclix Lancet Drum] misc See Dose Instructions .ROUTE .MEDSUPPLY Qty: 50 Rx Instructions: As directed (DME) Accu-Chek SmartView Test Strip Strip See Rx Instructions .ROUTE .MEDSUPPLY Dose Instruction: As directed Rx Instructions: USE 1 TEST STRIP DAILY PRN (DME) Walking Cane Misc See Rx Instructions .Route Qty: 1 0RF Rx Instructions: As directed rosuvastatin 40 mg tablet 40 mg PO PM insulin aspart U-100 [Novolog U-100 Insulin aspart] 100 unit/mL Solution 1 sliding scale dose SC ACHS Qty: 10 0RF Rx Instructions: --Goal BSG Range: Low 110 mg/dL, High 140 mg/dL --Correction Factor: 30 mg/dL/unit --Carbohydrate ratio = 12 g/unit calcitriol 0.25 mcg capsule 0.25 mcg PO DAILY triamcinolone acetonide 0.1 % ointment 1 applic TOPICAL BID PRN (Reason: Anxiety) Held potassium chloride 10 mEq tablet extended release 20 meq PO BID Qty: 120 6RF Hold Instructions: Resume on 05/06/24. resume once peritoneal dialysis resumed furosemide 40 mg tablet 80 mg PO QAM Hold Instructions: Resume on 05/06/24. resume once peritoneal dialysis resumed aspirin 81 mg tablet,chewable 81 mg PO QAM Hold Instructions: Resume on 06/03/24. hold until no longer on apixaban, then resume Discharge Orders: Discharge Order (Routine); Ordered 04/22/24 Ordered By: Marisa Nieto Admission Data Admit Date/Time: 04/20/24 01:56 Attending Provider: Marisa Nieto Admit Provider: Dudley Lea Primary Care Provider: Unruly Trujillo Other Providers: Dudley Lea; Chico Orlando; Roxy Wing; [facility] Stay Data Consultations 04/20/24 00:37 ED Decision to Admit Stat 04/20/24 01:56 Consult Orthopedic Surgery Routine 04/20/24 03:12 Consult Nephrology Routine Procedures Performed Operation Date: 04/20/24 12:00 Actual Procedures p Intramedullary Greyson Femur(Right) - Chico Orlando MD Diagnostic Imagining Performed 04/20/24 FL femur RT 2V Routine 04/20/24 01:58 CT Abd and Pelvis [CT abd pelvis wo con] Stat Pending Results Patient Have Any Pending Studies at Discharge: No Discharge Instructions Given to Patient (Per Discharging Provider) PT and OT evaluate and treat WBAT Follow up with Dr. Orlando in 2 weeks for wound check and staple removal Was on peritoneal dialysis through 04/22 Please continue hemodialysis thursday, , thursday Continue bumetanide 2 mg po bid through evening of 04/24, until Wednesday 04/25 when she resumes HD Hold potassium supplement and furosemide while on HD Access: RUE AVF no IVs or BP checks on right upper extremity Total Time Total Time Spent Total Time Spent (In Minutes): I personally spent: 45 minutes today on clinical care activities including: reviewing chart notes and vital signs reviewing labs reviewing studies discussion with health management consultant(s) discussion with critical care technician examining and counseling the patient writing orders writing prescriptions, discharge instructions documentation Coding Level of Care Code 68004 INP/OBS DISCH >30 MIN Diagnoses Fracture of hip, right, closed S72.001A Encounter type: initial encounter Transaminitis R74.01 Anemia due to chronic kidney disease N18.9; D63.1 Hypokalemia E87.6 ESRD (end stage renal disease) N18.6 CAD (coronary artery disease) I25.10 Vitamin D deficiency E55.9 Type 2 diabetes mellitus with obesity E11.69; E66.9 Hypercholesterolemia E78.00 Anxiety F41.9
[2024-04-22 11:00] VITALS: BP 125/73; PULSE 100; RESP 18; TEMP 99.3; O2SAT 95
--- NOTE | 2024-04-22 11:29 | Nephrology Progress Note ---
Date of Service April 22, 2024 Assessment & Plan (1) ESRD (end stage renal disease): (2) Fracture of hip, right, closed: (3) Anemia due to chronic kidney disease: (4) Hypertension: Plan ESKD on peritoneal dialysis, admitted after a fall and fracture of the right hip, waiting for OR. Hemoglobin relatively stable, blood pressure fair. Potassium was low at 2.8, currently getting IV and oral potassium supplement and repeat potassium was 3.0. Had surgery for right hip fracture on 04/20/2024. Potassium this morning was 3.8. Blood pressure well-controlled. Volume status acceptable. --start on Bumex 2 mg bid and continue through weekend and plan for next HD on Thursday at [facility] --Epogen 36891 units x 1 dose given on 04/20/24 --Right arm nephrology precautions --hold oral potassium supplement --Continue on regular potassium diet Admission and Anticipated Discharge Date Admission Date: April 20, 2024 Subjective Karis was seen and evaluated this morning. No shortness of breath or chest pain. Blood pressure well-controlled. Had PD last night , no UF as BP was low. Still making some urine but not much. Review of Systems Review of Systems: Detailed review of system was done and pertinent positives and negatives are mentioned above. Physical Exam Constitutional: WD/WN, vitals as above no acute distress Eyes: + anicteric sclerae Respiratory: no respiratory distress Auscultation: lungs clear to auscultation bilaterally Cardiovascular: Rate/Rhythm: regular rate and regular rhythm Extremities: + AV fistula (Rt BC AVFn with thrill and bruit); no edema Skin: no rashes, warm and dry Neurologic: no focal motor deficits Psychiatric: Orientation: alert and oriented x 3 Affect: euthymic affect Results & Data Vital Signs (Past 12 Hours) Vital Signs Temp Pulse Pulse Resp BP Pulse Ox O2 Del Method 04/22/24 10:59 37.4 C 100 H 18 125/73 95 Room Air 04/22/24 08:30 37 C 103 H 17 04/22/24 08:30 37.0 C 103 H 17 92/47 L 94 Room Air 04/22/24 07:00 90 04/22/24 04:00 36.9 C 81 18 159/78 H 95 Room Air 04/21/24 23:31 86 PG Care Time/CCT Total # of Minutes Spent Total Time Spent with Patient: Total time spent is greater than 50% in coordination of care (as documented) at patient's floor/unit and/or counseling patient: Coding Level of Care Code 26756 SUB INP/OBS CARE MIN Diagnoses ESRD (end stage renal disease) N18.6 Fracture of hip, right, closed S72.001A Encounter type: initial encounter Anemia due to chronic kidney disease N18.9; D63.1 Essential hypertension I10 Hypertension type: essential hypertension (2) Fracture of hip, right, closed Encounter type: initial encounter Qualified Code(s): S72.001A - Fracture of unspecified part of neck of right femur, initial encounter for closed fracture (4) Hypertension Hypertension type: essential hypertension Qualified Code(s): I10 - Essential (primary) hypertension
--- NOTE | 2024-04-22 16:42 | Orthopedic Progress Note ---
Date of Service April 22, 2024 Assessment & Plan (1) Status post-operative repair of hip fracture: Plan: Post op day 2 s/p right femur fracture ORIF with trochanteric nailing Continue PT/OT with weightbearing as tolerated on the right leg. Postsurgical dressings changed today Continue ice application to reduce pain D/C to [facility] later this AM Follow-up in the office in 2 weeks for reassessment and staple removal Continue BONNIE stockings, compression boots, and oral plavix and eliquis for DVT prophylaxis Admission and Anticipated Discharge Date Admission Date: April 20, 2024 Subjective This 73-year-old female who is 2 days status post Trochanteric femoral nailingof right Femur performed by Dr. Orlando on April 20. Patient states she is doing fairly well today. She states she really does not have any significant pain in the hip. She states she is supposed to be transferred to [facility] later this morning. Currently she denies chest pain, shortness of breath, fever, chills, sweats, nausea or vomiting, diarrhea, difficulty voiding or numbness or tingling in her right lower extremity. Review of Systems Review of Systems: All systems reviewed & are unremarkable except as noted in Subjective Physical Exam Physical Exam: Right hip: Postoperative dressing was removed. A new dressing consisting of Adaptic gauze, sterile 4 x 4's and Tegaderms were placed over all of the surgical incision sites. They were closed completely with kit in place. Patient was able to slightly lift her foot off of the bed and actively dorsi and plantarflex. I was able to palpate her dorsalis pedis and posterior tibial pulses. They are 1+. Patient was able to detect light sensation to touch over the pads of all digits. She tolerated light passive hip flexion to 65 degrees but experienced some slight discomfort with light passive internal and external hip rotation. Results & Data Vital Signs (Past 12 Hours) Vital Signs Temp Pulse Pulse Resp BP Pulse Ox O2 Del Method 04/22/24 12:26 37.4 C 100 H 18 125/73 95 04/22/24 10:59 37.4 C 100 H 18 125/73 95 Room Air 04/22/24 08:30 37 C 103 H 17 04/22/24 08:30 37.0 C 103 H 17 92/47 L 94 Room Air 04/22/24 07:00 90 Diagnostic Findings Laboratory Results WBC 10.54 K/ul (4.8-10.8) 04/22/24 06:15 RBC 2.22 M/uL (4.20-5.40) L 04/22/24 06:15 Hgb 7.5 g/dl (12.0-16.0) L 04/22/24 06:15 Hct 21.6 % (37.0-47.0) L 04/22/24 06:15 MCV 97.3 fL (80.0-100.0) 04/22/24 06:15 MCH 33.8 pg (25.0-34.0) 04/22/24 06:15 MCHC 34.7 g/dL (32.0-36.0) 04/22/24 06:15 RDW Std Deviation 50.9 fL (36.4-46.3) H 04/22/24 06:15 RDW Coeff of Poornima 14.3 % (11.5-14.5) 04/22/24 06:15 Plt Count 187 K/uL (130-400) 04/22/24 06:15 MPV 10.6 fL (9.4-12.4) 04/22/24 06:15 Immature Gran % (Auto) 0.6 % 04/22/24 06:15 Neut % (Auto) 76.2 % 04/22/24 06:15 Lymph % (Auto) 10.5 % 04/22/24 06:15 [place] % (Auto) 8.7 % 04/22/24 06:15 Eos % (Auto) 3.6 % 04/22/24 06:15 Baso % (Auto) 0.4 % 04/22/24 06:15 Neut # (Auto) 8.03 K/uL (1.40-6.50) H 04/22/24 06:15 Lymph # (Auto) 1.11 K/uL (1.20-3.40) L 04/22/24 06:15 [place] # (Auto) 0.92 K/uL (0.11-0.59) H 04/22/24 06:15 Eos # (Auto) 0.38 K/uL (0.00-0.50) 04/22/24 06:15 Baso # (Auto) 0.04 K/uL (0.00-0.20) 04/22/24 06:15 Immature Gran # (Auto) 0.06 K/uL (0.01-0.20) 04/22/24 06:15 Polychromasia 1+ 04/22/24 06:15 Echinocytes 1+ 04/22/24 06:15 PT 10.7 Seconds (9.0-12.0) 04/20/24 00:40 INR 1.0 (0.9-1.1) 04/20/24 00:40 APTT 22 Seconds (21-31) 04/20/24 00:40 PTT Ratio 0.8 04/20/24 00:40 Sodium 131 mmol/L (136-145) L 04/22/24 06:15 Potassium 3.6 mmol/L (3.5-5.1) 04/22/24 06:15 Chloride 96 mmol/L (98-107) L 04/22/24 06:15 Carbon Dioxide 25 mmol/L (21-32) 04/22/24 06:15 Anion Gap 10 (3-11) 04/22/24 06:15 BUN 39 mg/dl (6-23) H 04/22/24 06:15 Creatinine 7.22 mg/dl (0.6-1.2) H* D 04/22/24 06:15 Est Cr Clr Drug Dosing 7.1 ml/min 04/22/24 06:15 eGFR 5.48 04/22/24 06:15 BUN/Creatinine Ratio 5.4 (10-20) L 04/22/24 06:15 Glucose 202 mg/dl (70-99(Fasting)) H 04/22/24 06:15 POC Glucose 157 mg/dl (70-99) H 04/22/24 11:29 Estimat Average Glucose 157 mg/dl 04/20/24 06:29 Hemoglobin A1c 7.1 % (4.5-5.6) H 04/20/24 06:29 Calcium 8.2 mg/dl (8.6-10.3) L 04/22/24 06:15 Magnesium 1.7 mg/dl (1.7-2.4) 04/20/24 00:40 Total Bilirubin 0.4 mg/dl (0.2-1.0) 04/22/24 06:15 AST 55 U/L (13-39) H 04/22/24 06:15 ALT 32 U/L (7-52) 04/22/24 06:15 Alkaline Phosphatase 83 U/L (34-104) 04/22/24 06:15 Total Creatine Kinase 104 U/L (26-192) 04/21/24 05:24 Troponin I High Sens 104.9 pg/ml (0-14) H* 04/21/24 07:37 Total Protein 4.7 gm/dl (6.0-8.3) L 04/22/24 06:15 Albumin 2.1 gm/dl (3.4-5.0) L 04/22/24 06:15 Globulin 2.6 gm/dl (2.5-4.0) 04/22/24 06:15 Albumin/Globulin Ratio 0.8 (0.9-2) L 04/22/24 06:15 25-OH Vitamin D Total 24.9 ng/ml (30-100) L 04/21/24 05:24 Hep Bs Antigen Negative (Negative) 04/21/24 12:12 Hep Bs Antibody Immune 04/21/24 12:12 Hep Bs Antibody, Quant 204.00 mIU/mL (>or=10mIU/mL Immune) 04/21/24 12:12 Hep B Core IgM Ab NON-REACTIVE (NON-REACTIVE) 04/20/24 06:33 Blood Type O Positive 04/20/24 08:20 Antibody Screen NEGATIVE 04/20/24 08:20 Impressions Femur X-Ray 04/20/24 00:00 FL femur RT 2V CLINICAL HISTORY: TROCH NAIL RT TECHNIQUE: 5 views were obtained with the C-arm in the OR with the above procedure. Total fluoroscopy time was 135.7 seconds. Radiation dose was 31.69 mGy. Comparison: Comparison is made to hip radiograph 04/20/2024 FINDINGS/IMPRESSION: Intraoperative images were obtained of right femoral trochanteric nail placement. Please correlate with intraoperative fluoroscopy and operative report. ACT 112: Negative or not required by law. Electronically signed by: Jose Tao M.D. 04/21/2024 8:27 AM Hip/Pelvis X-Ray 04/20/24 00:17 EXAM: XR hip RT 2V w pelvis CLINICAL HISTORY: Right hip pain, Hx fall. TECHNIQUE: X-ray images of the right hip joints and pelvis were obtained in anteroposterior (AP) and oblique projection, including pelvis AP. COMPARISON: No prior studies are available for comparison. FINDINGS: Pelvic Bones: Right femoral intertrochanteric fracture with mild gapping. The left femoral neck appears normal. The iliac wing, ischium, pubis, and sacrum, are normal and intact bilaterally. Hip Joints: Narrowing of the superior aspects of both hip joints with marginal osteophytes of the acetabulum. No evidence of hip dislocation or subluxation. Femoral heads are normal and centered within the acetabulum. No evidence of avascular necrosis, or significant deformities. Sacroiliac joints appear normal and unremarkable. No evidence of sacroiliitis or significant degenerative changes. Symphysis Pubis: The symphysis pubis is normal and intact. No evidence of separation or widening. Soft Tissues: Marked atherosclerotic calcification of the visualized vessels of the abdomen and lower limbs. Well-defined calcified lesions, measuring about 8 x 6 cm and 2 x 2 cm in diameter, are seen in the pelvic cavity, and likely represent calcified fibroids. Ossification changes of the proximal aspect of the right gluteal muscles, near its origin at the right iliac crest. Additional Findings: No other significant abnormalities were noted. IMPRESSION: 1. Right femoral intertrochanteric fracture with mild gapping. 2. Bilateral hip joint osteoarthritis. DISCLAIMER:A subtle bone abnormality or fracture may not be readily apparent on X-rays, thus clinical correlation and further imaging including follow-up CT, MRI, or follow-up X-rays are advised as needed. [facility] ER was called at [phone] at 12:15 AM CLOTH SHEARER, 04/20/2024, and Dr. Rosado was informed regarding the presence of Significant Medical Findings on this report. Electronically signed by Mike Acuña 04-20-2024 01:24 AM Chest X-Ray 04/20/24 00:18 EXAM: XR chest 1V portable CLINICAL HISTORY: History of fall, pain in the right hip. TECHNIQUE: An X-ray image of the chest is obtained in AP projection. COMPARISON: No prior studies are available for comparison. FINDINGS: Pulmonary Parenchyma: The mild reticular pattern of both lungs with no zonal predilection. No evidence of consolidation, collapse, or focal opacities. No pulmonary nodules are identified. No evidence of pleural effusion or pleural thickening. Heart and Mediastinum: Calcified aortic knuckle. Heart size and shape are normal. No mediastinal widening or masses. No hilar or mediastinal lymphadenopathy. Bony Thorax: The bony thorax appears intact without fractures or deformities. Soft Tissues: Soft tissues overlying the chest wall are unremarkable. IMPRESSION: 1. A mild reticular pattern of both lungs. 2. No acute cardiopulmonary abnormalities are identified. Electronically signed by Mike Acuña 04-20-2024 01:12 AM Abdomen/Pelvis CT 04/20/24 01:58 EXAM: CT abd pelvis wo con CLINICAL HISTORY: transaminitis, ESRD on PD, ABD PAIN , RT HIP PAIN TECHNIQUE: Contiguous axial images were obtained from the level of the diaphragm to the pubic symphysis without intravenous or oral contrast. Coronal and sagittal reconstructions were likewise performed and indicated to increase the sensitivity for detecting clinically relevant pathology. CT scan was performed according to ALARA (as low as reasonable achievable). COMPARISON: None. FINDINGS: The visualized lung bases are clear. Evaluation of the abdominal and pelvic visceral organs is limited without intravenous contrast. The unenhanced liver, spleen, pancreas, and adrenal glands are grossly unremarkable. The gallbladder is not seen. The kidneys are normal in size and attenuation without obvious calcification. There is no hydronephrosis or perinephric stranding. Multiple punctate calculi are noted involving bilateral kidney. The ureters are normal in caliber. No adenopathy seen. No evidence of focal or diffuse bowel wall thickening or evidence of bowel obstruction is seen. The appendix is visualized in the right lower quadrant and appears within normal limits. The aorta is normal in caliber. The urinary bladder is normal in contour. Pelvic viscera are grossly unremarkable. No aggressive appearing osseous lesions are identified. Diffuse atherosclerotic calcification is noted involving aorta, iliac arteries and the withir all branches. Moderate ascites noted - predominantly lower abdomen and pelvis region. Multiple calcified fibroids are noted involving uterus largest measures about 6 x 5 cm. Dialysis catheter/tube is seen in situ in abdominal cavity. Comminuted mildly displaced fracture of proximal shaft and intertrochanteric region of right femur. IMPRESSION: 1. Diffuse atherosclerotic calcification is noted involving aorta, iliac arteries and their all branches. 2. Moderate ascites noted - predominantly lower abdomen and pelvis region. 3. Multiple punctate calculi are noted involving bilateral kidney. 4. Multiple calcified fibroids are noted involving uterus, largest measures about 6 x 5 cm. 5. Comminuted mildly displaced fracture of proximal shaft and intertrochanteric region of right femur. Electronically signed by Morales Anderson 04-20-2024 03:07 AM
== END 2024-04-22 14:17 | DRG 480 ==
LOC: ED 00:13 → 2S 01:56 → SUATTDRO 01:56 → 2S 02:46

== ENCOUNTER 2024-08-24 10:47 | Inpatient (IN) ==
[2024-08-24 12:45] LABS: Basophils # (auto) 0.04 K/uL (0.00-0.20); Basophils % (auto) 0.5 %; Eosinophils # (auto) 0.05 K/uL (0.00-0.50); Eosinophils % (auto) 0.6 %; Hematocrit (blood only) 36.4 % (37.0-47.0); Hemoglobin 12.5 g/dl (12.0-16.0); Immature Granulocytes # (auto) 0.02 K/uL (0.01-0.20); Immature Granulocytes % (auto) 0.2 %; Lymphocytes # (auto) 1.01 K/uL (1.20-3.40); Lymphocytes % (auto) 12.6 %; Mean Corpuscular Hemoglobin 32.9 pg (25.0-34.0); Mean Corpuscular Hgb Conc 34.3 g/dL (32.0-36.0); Mean Corpuscular Volume 95.8 fL (80.0-100.0); Mean Platelet Volume 9.8 fL (9.4-12.4); Monocytes # (auto) 0.61 K/uL (0.11-0.59); Monocytes % (auto) 7.6 %; Neutrophils # (auto) 6.31 K/uL (1.40-6.50); Neutrophils % (auto) 78.5 %; Platelet Count 251 K/uL (130-400); RDW Coefficient of Variation 14.8 % (11.5-14.5); RDW Standard Deviation 52.1 fL (36.4-46.3); White Blood Count 8.04 K/ul (4.8-10.8)
[2024-08-24 12:47] LABS: Alanine Aminotransferase 48 U/L (7-52); Albumin Globulin Ratio 0.9 (0.9-2); Albumin Level 2.7 gm/dl (3.4-5.0); Alkaline Phosphatase 111 U/L (34-104); Anion Gap 14 (3-11); Aspartate Aminotransferase 34 U/L (13-39); BUN Creatinine Ratio 5.4 (10-20); Bilirubin,Total 0.6 mg/dl (0.2-1.0); Blood Urea Nitrogen 40 mg/dl (6-23); Calcium 7.4 mg/dl (8.6-10.3); Carbon Dioxide 25 mmol/L (21-32); Chloride 91 mmol/L (98-107); Globulin 3.1 gm/dl (2.5-4.0); Glucose 199 mg/dl (70-99(Fasting)); Potassium 3.4 mmol/L (3.5-5.1); Sodium 130 mmol/L (136-145); Total Protein 5.8 gm/dl (6.0-8.3)
--- NOTE | 2024-08-24 14:44 | Emergency Department Note ---
Impression & Plan Dialysis complication, Dialysis patient, Has no electricity in home ED Provider Note NAME: TRACI CABRAL AGE: 74 SEX: F : 1950 ARRIVES VIA: Ambulance INFORMANT: Patient, ED PROVIDER(S): Keegan Young MD CHIEF COMPLAINT: Dialysis needs HPI: This is a 74-year-old female presenting for dialysis needs. Patient states she does home peritoneal dialysis nightly. She has machine that does this. She notes that she has had some lower extremity edema. She notes that the power is currently out in her home and in the entire town. She is not able to use her dialysis machine at this time. States she does not feel safe at home without power. She otherwise reports no chest pain, shortness breath fevers or chills. ROS: See above HPI for pertinent positives & negatives. A total of 10 systems reviewed and were otherwise negative. PHYSICAL EXAMINATION: General: Chronically unwell appearing Head: Normocephalic and atraumatic Eyes: Normal inspection, extraocular muscles intact Ear, nose, throat: Normal external exam Neck: Normal range of motion Respiratory: lungs clear to auscultation bilaterally Cardiovascular: Regular rate/rhythm, no murmur GI: soft, nontender, no guarding or rebound Extremities: nontender, moves all extremities Neuro: The patient awake and alert, appropriately conversive, no focal deficits, symmetric faces Skin: Warm, dry, and intact MEDICAL DECISION MAKING: This is a 74-year-old female present for dialysis needs. Patient does have home peritoneal dialysis nightly. She used manual exchange solution today. Patient currently has no power in her home and does not feel safe at home at this due to this. -Blood work ordered test for electrolyte deterioration. She has slight hyponatremia and hypokalemia. She has an elevated BUN and creatinine consistent with ESRD. No life-threatening electrolyte at this time. - Discussed with hospitalist, Dr. Nieto. She spoke with Dr. Heard, outreach analyst who states that patient could feasibly do home dialysis manual exchanges. Dr. Heard did come down and see the patient at bedside. -I have discussed this with her and recommended discharge home as she cannot do dialysis. She states she still does not feel safe at this time due to no electricity. Case management consulted. - Ultimately the patient will be admitted under Dr. Nieto Differential diagnosis: Dialysis needs, hyperkalemia, Diagnostics interpreted by me: ECG: ECG independently interpreted by me with normal sinus rhythm, rate of 77, normal NE, normal QRS, normal QTc, no ST segment elevations consistent with STEMI criteria Cardiac Monitoring: An order was placed for continuous cardiac monitoring. The monitor shows a rate of 77 with sinus rhythm. Past Med/Surg History Problem List (Updated 08/24/24 @ 14:50 by Keegan Young MD) Has no electricity in home (Acute) Dialysis patient (Acute) Dialysis complication (Acute) MRSA infection Diabetic ulcer of right foot (Acute) Blister of foot Chronic venous insufficiency Stage III pressure ulcer of right buttock (Acute) 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 (Acute) Edema of lower extremity (Acute) Abnormal ankle brachial index (MAINE) (Acute) Edema of lower extremity Diabetic ulcer of right great toe (Acute) Osteoporosis Decubitus ulcer of sacral region, stage 2 Venous ulcer of right leg (Acute) Fracture, intertrochanteric, right femur (Acute ~04/20/24) right femoral intertrochanteric fracture Status post-operative repair of hip fracture Hypertension Anemia due to chronic kidney disease ESRD (end stage renal disease) Transaminitis Type 2 diabetes mellitus with obesity Hypercholesterolemia Non-proliferative diabetic retinopathy, both eyes Gout (Acute) Anxiety Associated dyspnea per pulmonology Vitamin D deficiency Complex renal cyst Medical History Fracture of hip, right, closed (04/20/24) Acute cholecystitis Heart failure with preserved ejection fraction CAD (coronary artery disease) Obesity Non-ST elevation SD (NSTEMI) Pulmonary edema Folate deficiency anemia Metabolic acidosis Stage 5 chronic kidney disease not on chronic dialysis AV fistula Periodontal pocket Carious teeth Sleep apnea Diastolic CHF Chronic kidney disease, stage 4 (severe) Secondary hyperparathyroidism of renal origin History of DVT (deep vein thrombosis) Fibroids History of hypothyroidism Sensorineural hearing loss (SNHL) of both ears Family history of colon cancer in mother Surgical History Hx laparoscopic cholecystectomy (01/28/24) History of coronary artery stent placement S/P arteriovenous (AV) fistula creation History of dental surgery History of surgery on arm History of colonoscopy Family History Mother Diabetes Renal cell cancer Heart disease Colorectal cancer Hypertension Brother Diabetes Renal cell cancer Heart disease Lung cancer Hypertension Gallbladder disease Father Prostate cancer Heart disease Hypertension Grandmother (Maternal) Colorectal cancer Aunt Diabetes Other Alzheimer disease No family history of adverse response to anesthesia Denies family history of Ovarian cancer Myocardial infarction Breast cancer Social History Smoking Status: Never smoker Second Hand Exposure: No; Do You Dip or Chew Tobacco: No; Hx Alcohol Use: Yes Alcohol type: wine Alcohol Intake Frequency: Monthly or Less Hx Substance Use: No Preferred Language: Kinyarwanda Communication Ability: Effective Visual Impairment: Limited Hearing Ability: Hard of Hearing Cracker Dough Mixer Required: No Beliefs That Will Affect Care: None marital status: Single Current Living Situation: Alone current occupational status: retired current occupation: Retired How many Children do You have: 0 Feels Safe at Home: Yes Childhood Exposure to Second-Hand Smoke: No (very little ) Diet: diabetic caffeine: Yes (drinks iced tea every day, sometimes soda ) Dental Care, Regularly: Yes Physical Activity Frequency: 1-2 Times per Week Physical Activity Frequency Comment: weight training, walking Seatbelt Use: always Sunscreen Use: Yes (most times ) Assistive Devices: Cane and Walker Allergies Allergies Allergy/AdvReac Type Severity Reaction Status Date / Time insect venom Allergy Intermediate Swelling Verified 08/17/24 14:19 adhesive tape Allergy Mild Rash Verified 08/17/24 14:19 dulaglutide [From Trulicity] AdvReac Mild Constipation, Verified 08/17/24 14:19 vomiting Home Meds Home Medications Medication Instructions Recorded Confirmed lancets (Accu-Chek Fastclix Lancet #50 ea 12/16/18 08/10/24 Drum) aspirin 81 mg chewable tablet 81 mg PO QAM 11/07/19 08/10/24 mecobalamin (vitamin B12) 1,000 1,000 mcg PO QAM 09/13/20 08/10/24 mcg chewable tablet (B12 Active) blood sugar diagnostic (Accu-Chek 10/15/21 08/10/24 SmartView Test Strips) cholecalciferol (vitamin D3) 62.5 62.5 mcg PO HS 06/06/22 08/10/24 mcg (2,500 unit) capsule triamcinolone acetonide 0.1 % 1 applic topical BID PRN Anxiety 07/28/23 08/10/24 topical ointment rosuvastatin 40 mg tablet 40 mg PO PM 01/27/24 08/10/24 insulin degludec 100 unit/mL (3 20 unit subcut DAILY 03/15/24 08/10/24 mL) subcutaneous pen calcitriol 0.25 mcg capsule 0.25 mcg PO DAILY 04/21/24 08/10/24 furosemide 80 mg tablet (Lasix) 80 mg PO BID 06/10/24 08/10/24 metoprolol succinate 50 mg 25 mg PO DAILY 08/23/24 tablet,extended release 24 hr Previous Rx's Medication Instructions Recorded Walking Cane #1 ea 06/30/23 clopidogrel 75 mg tablet 75 mg PO QAM #90 tabs 08/18/23 pen needle, diabetic 32 gauge x #100 ea 08/24/23" (BD Nicki 2nd Gen Pen Needle) buspirone 7.5 mg tablet 7.5 mg PO DAILY PRN anxiety #90 09/04/23 tabs vitamin B complex and vitamin C 1 cap PO QAM #90 caps 12/15/23 no.20-folic acid 1 mg capsule (Renal Caps) potassium chloride 10 mEq 20 meq (2 x 10 mEq) PO BID #120 04/15/24 tablet,extended release tabs zolpidem 5 mg tablet (Ambien) 5 mg PO .qhs sleep #30 tabs 08/01/24 insulin aspart U-100 100 unit/mL 16 unit (0.16 mL) subcut TID 90 08/08/24 (3 mL) subcutaneous pen ( #45 mL FlexPen U-100 Insulin aspart) ampicillin 500 mg capsule 500 mg PO BID 10 days #20 caps 08/15/24 nystatin 100,000 unit/gram topical 1 applic topical DAILY 30 days #30 08/15/24 powder grams blood-glucose sensor (FreeStyle #2 ea 08/16/24 Kvng 3 Plus Sensor device) Results & Data (ED) Vital Signs Vital Signs - 24 hr 08/24/24 10:49 08/24/24 11:00 08/24/24 11:03 Temperature 36.6 C Temperature Source Oral Pulse Rate 82 86 Pulse Rate from SpO2 Sensor 81 Respiratory Rate 20 26 H Blood Pressure 200/79 H 181/118 H Blood Pressure Mean 119 127 Pulse Oximetry 99 100 Oxygen Delivery Method Room Air Sepsis Recent Fever Within 48 Hours No Sepsis New/Unexplained Change in Mental Status N/A Sepsis Action Taken by Nursing No Action Required 08/24/24 11:15 08/24/24 11:31 08/24/24 11:31 Temperature Temperature Source Pulse Rate 80 Pulse Rate from SpO2 Sensor 80 Respiratory Rate 18 Blood Pressure 192/101 H 192/101 H Blood Pressure Mean 137 137 Pulse Oximetry 100 Oxygen Delivery Method Sepsis Recent Fever Within 48 Hours Sepsis New/Unexplained Change in Mental Status Sepsis Action Taken by Nursing 08/24/24 11:31 08/24/24 11:33 08/24/24 11:45 Temperature Temperature Source Pulse Rate 84 81 Pulse Rate from SpO2 Sensor 80 79 Respiratory Rate 32 H 24 Blood Pressure 192/101 H Blood Pressure Mean 137 Pulse Oximetry 100 100 Oxygen Delivery Method Sepsis Recent Fever Within 48 Hours Sepsis New/Unexplained Change in Mental Status Sepsis Action Taken by Nursing 08/24/24 11:54 08/24/24 12:00 08/24/24 12:01 Temperature Temperature Source Pulse Rate 80 79 Pulse Rate from SpO2 Sensor 79 79 Respiratory Rate 20 18 Blood Pressure 151/63 H Blood Pressure Mean 96 Pulse Oximetry 99 98 Oxygen Delivery Method Sepsis Recent Fever Within 48 Hours Sepsis New/Unexplained Change in Mental Status Sepsis Action Taken by Nursing 08/24/24 12:13 08/24/24 12:31 08/24/24 12:57 Temperature Temperature Source Pulse Rate 79 78 78 Pulse Rate from SpO2 Sensor 77 Respiratory Rate 21 10 L Blood Pressure 158/67 H 161/68 H Blood Pressure Mean 128 99 Pulse Oximetry 100 100 Oxygen Delivery Method Sepsis Recent Fever Within 48 Hours Sepsis New/Unexplained Change in Mental Status Sepsis Action Taken by Nursing 08/24/24 13:15 08/24/24 13:24 08/24/24 13:30 Temperature Temperature Source Pulse Rate 81 76 78 Pulse Rate from SpO2 Sensor 80 73 75 Respiratory Rate 17 23 26 H Blood Pressure Blood Pressure Mean Pulse Oximetry 100 99 100 Oxygen Delivery Method Sepsis Recent Fever Within 48 Hours Sepsis New/Unexplained Change in Mental Status Sepsis Action Taken by Nursing 08/24/24 13:42 08/24/24 13:57 08/24/24 14:00 Temperature Temperature Source Pulse Rate 81 98 H Pulse Rate from SpO2 Sensor 79 Respiratory Rate 14 26 H Blood Pressure 183/86 H Blood Pressure Mean 134 Pulse Oximetry 97 Oxygen Delivery Method Sepsis Recent Fever Within 48 Hours Sepsis New/Unexplained Change in Mental Status Sepsis Action Taken by Nursing 08/24/24 14:00 08/24/24 14:00 08/24/24 14:18 Temperature Temperature Source Pulse Rate 77 Pulse Rate from SpO2 Sensor 77 Respiratory Rate 11 L Blood Pressure 183/86 H 183/86 H Blood Pressure Mean 134 134 Pulse Oximetry 96 Oxygen Delivery Method Sepsis Recent Fever Within 48 Hours Sepsis New/Unexplained Change in Mental Status Sepsis Action Taken by Nursing Laboratory Data 08/24/24 12:19 08/24/24 11:00 Lab Results 08/24/24 08/24/24 Range/Units 11:00 12:19 WBC 8.04 (4.8-10.8) K/ul RBC 3.80 L (4.20-5.40) M/uL Hgb 12.5 (12.0-16.0) g/dl Hct 36.4 L (37.0-47.0) % MCV 95.8 (80.0-100.0) fL MCH 32.9 (25.0-34.0) pg MCHC 34.3 (32.0-36.0) g/dL RDW Std Deviation 52.1 H (36.4-46.3) fL RDW Coeff of Poornima 14.8 H (11.5-14.5) % Plt Count 251 (130-400) K/uL MPV 9.8 (9.4-12.4) fL Immature Gran % (Auto) 0.2 % Neut % (Auto) 78.5 % Lymph % (Auto) 12.6 % [place] % (Auto) 7.6 % Eos % (Auto) 0.6 % Baso % (Auto) 0.5 % Neut # (Auto) 6.31 (1.40-6.50) K/uL Lymph # (Auto) 1.01 L (1.20-3.40) K/uL [place] # (Auto) 0.61 H (0.11-0.59) K/uL Eos # (Auto) 0.05 (0.00-0.50) K/uL Baso # (Auto) 0.04 (0.00-0.20) K/uL Immature Gran # (Auto) 0.02 (0.01-0.20) K/uL Sodium 130 L (136-145) mmol/L Potassium 3.4 L (3.5-5.1) mmol/L Chloride 91 L (98-107) mmol/L Carbon Dioxide 25 (21-32) mmol/L Anion Gap 14 H (3-11) BUN 40 H (6-23) mg/dl Creatinine 7.44 H* (0.6-1.2) mg/dl Est Cr Clr Drug Dosing Not Reportable eGFR 5.25 BUN/Creatinine Ratio 5.4 L (10-20) Glucose 199 H (70-99(Fasting)) mg/dl Calcium 7.4 L (8.6-10.3) mg/dl Total Bilirubin 0.6 (0.2-1.0) mg/dl AST 34 (13-39) U/L ALT 48 (7-52) U/L Alkaline Phosphatase 111 H (34-104) U/L Total Protein 5.8 L (6.0-8.3) gm/dl Albumin 2.7 L (3.4-5.0) gm/dl Globulin 3.1 (2.5-4.0) gm/dl Albumin/Globulin Ratio 0.9 (0.9-2) Discharge Plan Visit Data Chief Complaint: Illness Stated Complaint: PT EVAL. FOR DIALYSIS DUE TO NO POWER ED Provider: Keegan Young Discharge Problem: Dialysis complication, Dialysis patient, Has no electricity in home Forms Stand Alone Forms: My [facility] Prescriptions Prescriptions: No Action clopidogrel 75 mg tablet 75 mg PO QAM Qty: 90 3RF (DME) pen needle, diabetic [BD Nicki 2nd Gen Pen Needle] 32 gauge x 5/32" needle See Rx Instructions .Route Qty: 100 11RF Rx Instructions: use to inject 3 times daily buspirone 7.5 mg tablet 7.5 mg PO DAILY PRN (Reason: anxiety) Qty: 90 3RF Renal Caps 1 mg capsule 1 cap PO QAM Qty: 90 3RF insulin degludec 100 unit/mL (3 mL) insulin pen 20 unit subcut DAILY Patient Comments: CONFIRMED W/ PT THAT SHE IS TAKING TRESIBA 18-20 UNITS DAILY. potassium chloride 10 mEq tablet extended release 20 meq PO BID Qty: 120 6RF Hold Instructions: Resume on 05/06/24. resume once peritoneal dialysis resumed insulin aspart U-100 [Novolog FlexPen U-100 Insulin] 100 unit/mL (3 mL) insulin pen 16 unit subcut TID 90 Days Qty: 45 3RF nystatin 100,000 unit/gram powder 1 applic topical DAILY 30 Days Qty: 30 0RF Rx Instructions: Apply to buttocks daily with dressing changes. ampicillin 500 mg capsule 500 mg PO BID 10 Days Qty: 20 0RF Rx Instructions: Give after dialysis on dialysis days. (DME) FreeStyle Kvng 3 Plus Sensor Device See Rx Instructions .Route Qty: 2 5RF Rx Instructions: change sensor Q15 D metoprolol succinate 50 mg tablet extended release 24 hr 25 mg PO DAILY Patient Comments: CONFIRMED W/ PT AND ON [facility] L[facility] 03/01/24 cholecalciferol (vitamin D3) 62.5 mcg (2,500 unit) capsule 62.5 mcg PO HS B12 Active 1,000 mcg tablet,chewable 1,000 mcg PO QAM (DME) lancets [Accu-Chek Fastclix Lancet Drum] misc See Dose Instructions .ROUTE .MEDSUPPLY Qty: 50 Rx Instructions: As directed aspirin 81 mg tablet,chewable 81 mg PO QAM Hold Instructions: Resume on 06/03/24. hold until no longer on apixaban, then resume (DME) Accu-Chek SmartView Test Strip Strip See Rx Instructions .ROUTE .MEDSUPPLY Dose Instruction: As directed Rx Instructions: USE 1 TEST STRIP DAILY PRN (DME) Walking Cane Misc See Rx Instructions .Route Qty: 1 0RF Rx Instructions: As directed furosemide [Lasix] 80 mg tablet 80 mg PO BID zolpidem [Ambien] 5 mg tablet 5 mg PO .qhs Qty: 30 3RF rosuvastatin 40 mg tablet 40 mg PO PM calcitriol 0.25 mcg capsule 0.25 mcg PO DAILY triamcinolone acetonide 0.1 % ointment 1 applic TOPICAL BID PRN (Reason: Anxiety) Referrals Referrals: Unruly Trujillo DO [Primary Care Provider] - Discharge Problem: Dialysis complication Qualifiers: Encounter type: initial encounter Qualified Code(s): T82.9XXA - Unspecified complication of cardiac and vascular prosthetic device, implant and graft, initial encounter
--- OUTSIDE RECORDS SUMMARY | 2024-08-24 14:50 | External Medical Summary | Continuity of Care Document ---
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 Name Role Phone Unruly Trujillo Primary Care Physician [phone] Encounter [facility] [id number] Date(s): 08/12/24 - 08/12/24 [facility] [address], [place] [id number] Encounter Diagnosis Neoplasm of uncertain behavior(Discharge Diagnosis) - 08/12/24 History of squamous cell carcinoma in situ (SCCIS) of skin(Discharge Diagnosis) - 08/12/24 Encounter for exam following cancer surgery(Discharge Diagnosis) - 08/12/24 Seborrheic keratosis(Discharge Diagnosis) - 08/12/24 Discharge Disposition: Home or Self Care Attending Physician: KATT Valadez, Apolonia Bernardo Encounter Type: Clinic Allergies, Adverse Reactions, Alerts Substance Criticality Severity Reaction Reaction Severity Status Adhesive bandage skin irritation Active Allergy Not found in Search insect bites Active Trulicity Pen felt terrible on it Active Medications allopurinol 100 mg oral tablet Start: 10/05/19 11:01:00 AM EDT, 0.5 tab, PO, q48h Start Date: 10/05/19 Status: Ordered Repeat number: 1 amLODIPine 10 mg oral tablet Start: 10/02/20 2:26:00 PM EDT, 1 tab, PO, Daily Start Date: 10/02/20 Status: Ordered Repeat number: 1 Aspirin Low Dose 81 mg oral delayed release tablet Start: 04/16/18 2:53:00 PM EST, 1 tab, PO, Daily Start Date: 04/16/18 Status: Ordered Repeat number: 1 atorvastatin 40 mg oral tablet TAKE 1 TABLET BY MOUTH EVERY DAY IN THE MORNING Start Date: 11/11/23 Status: Ordered Repeat number: 1 Bactroban 2% topical ointment Start: 11/11/23 4:14:00 PM EDT, 1 appl, topical, tid, Disp# 22 g, Refills: 0, left leg lesions, Pharmacy: [facility] [place]/[facility]acy [facility][id number] Start Date: 11/11/23 Status: Ordered Quantity: 22.0 Unit: g Repeat number: 1 Indications: Inflamed seborrheic keratosis; Other seborrheic keratosis; Disorder of the skin and subcutaneous tissue, unspecified; Actinic keratosis; Encounter for follow-up examination after completed treatment for malignant neoplasm; calcitriol 0.25 mcg oral capsule Start: 10/05/19 11:01:00 AM EDT, 1 cap, PO, Daily Start Date: 10/05/19 Status: Ordered Repeat number: 1 cholecalciferol Start: 04/03/22 2:50:00 PM EST Start Date: 04/03/22 Status: Ordered Repeat number: 1 Eliquis 2.5 mg oral tablet Start: 06/17/24 9:13:00 AM EST, 1 tab, PO, bid, Disp# 30 tab, Refills: 2, Pharmacy: [facility] [place]/pharmacy #[id number] Start Date: 06/17/24 Status: Ordered Quantity: 30.0 Unit: tab Repeat number: 3 Indications: Displaced intertrochanteric fracture of right femur, initial encounter for closed fracture; Eliquis 5 mg oral tablet Start: 06/14/24 12:45:00 PM EST, 1 tab, PO, bid Start Date: 06/14/24 Status: Ordered Repeat number: 1 furosemide 40 mg oral tablet Start: 04/03/22 2:49:00 PM EST Start Date: 04/03/22 Status: Ordered Repeat number: 1 hydrALAZINE 10 mg oral tablet Start: 04/04/21 1:50:00 PM EST, 1 tab, PO, bid Start Date: 04/04/21 Status: Ordered Repeat number: 1 metoprolol extended release Start: 04/16/18 2:51:00 PM EST, 150 mg =, PO, Daily Start Date: 04/16/18 Status: Ordered Repeat number: 1 Metoprolol Succinate ER 100 mg oral tablet, extended release Start: 08/26/23 1:27:00 PM EDT, 90 each, 0 Refill(s), TAKE 1 TABLET ORALLY DAILY IN THE MORNING IN ADDITION TO 50MG FOR A TOTAL OF 150MG DAILY Start Date: 08/26/23 Status: Ordered Repeat number: 1 Metoprolol Succinate ER 50 mg oral tablet, extended release Start: 08/26/23 1:27:00 PM EDT, 90 each, 0 Refill(s), TAKE 1 TABLET BY MOUTH EVERY DAY IN THE MORNING Start Date: 08/26/23 Status: Ordered Repeat number: 1 NovoLOG 100 units/mL injectable solution Start: 04/04/21 1:49:00 PM EST, 14 unit =, subQ, ac Start Date: 04/04/21 Status: Ordered Repeat number: 1 Plavix 75 mg oral tablet Start: 08/26/23 1:23:00 PM EDT, 1 tab, PO, ONCE Start Date: 08/26/23 Status: Ordered Repeat number: 1 Renal Caps Start: 08/26/23 1:23:00 PM EDT Start Date: 08/26/23 Status: Ordered Repeat number: 1 Silvadene 1% topical cream Start: 08/26/23 2:32:00 PM EDT, 1 appl, topical, bid, Disp# 20 g, Refills: 5, apply to buttocks twicea day., Note to Pharmacy: she will also be looking to get zinc oxide., Pharmacy: [facility] [place]/pharmacy #[id number] Start Date: 08/26/23 Status: Ordered Quantity: 20.0 Unit: g Repeat number: 6 Indications: Other seborrheic keratosis; Actinic keratosis; Silvadene 1% topical cream Start: 08/26/23 6:38:00 PM EDT, 1 appl, topical, bid, Disp# 50 g, Refills: 3, apply to buttocks bid, Pharmacy: [facility]/pharmacy #[id number] Start Date: 08/26/23 Status: Ordered Quantity: 50.0 Unit: g Repeat number: 4 Indications: Encounter for follow-up examination after completed treatment for malignant neoplasm; Other seborrheic keratosis; Pressure ulcer of unspecified buttock, unspecified stage; Personal history of other malignant neoplasm of skin; Actinic keratosis; simvastatin 20 mg oral tablet Start: 08/26/23 1:27:00 PM EDT, 90 each, 0 Refill(s), take 1 tablet by mouth at bedtime Start Date: 08/26/23 Status: Ordered Repeat number: 1 simvastatin 40 mg oral tablet Start: 04/16/18 2:53:00 PM EST, 1 tab, PO, qhs Start Date: 04/16/18 Status: Ordered Repeat number: 1 Tresiba FlexTouch 100 units/mL subcutaneous solution Start: 10/02/20 2:26:00 PM EDT, 36 unit =, subQ, Daily Start Date: 10/02/20 Status: Ordered Repeat number: 1 triamcinolone 0.1% topical ointment Start: 08/01/24 10:36:00 AM EDT, See Instructions, Disp# 60 g, Refills: 2, APPLY TOPICALLY TWICE A DAY TO AREA OF INFLAMMATION ON BUTTOCK UNTIL CLEAR AND THEN NEEDED, Pharmacy: [facility]/pharmacy #[id number] Start Date: 08/01/24 Status: Ordered Quantity: 60.0 Unit: g Repeat number: 3 Vitamin B12 Start: 10/02/20 2:27:00 PM EDT, 1 tab, PO, Daily Start Date: 10/02/20 Status: Ordered Repeat number: 1 zinc oxide 10% topical ointment Start: 08/26/23 2:34:00 PM EDT, 1 appl, topical, qid, Disp# 113 g, Refills: 5, apply to buttocks, Pharmacy: [facility]/pharmacy #[id number] Start Date: 08/26/23 Status: Ordered Quantity: 113.0 Unit: g Repeat number: 6 Indications: Other seborrheic keratosis; Actinic keratosis; zinc oxide 10% topical ointment Start: 08/26/23 6:39:00 PM EDT, 1 appl, topical, qid, Disp# 113 g, Refills: 5, to buttocks., Note to Pharmacy: zinc 10%/ dimethicone 1% is fine, over the counter is ok, Pharmacy: [facility]/pharmacy #[id number] Start Date: 08/26/23 Status: Ordered Quantity: 113.0 Unit: g Repeat number: 6 Indications: Encounter for follow-up examination after completed treatment for malignant neoplasm; Other seborrheic keratosis; Pressure ulcer of unspecified buttock, unspecified stage; Personal history of other malignant neoplasm of skin; Actinic keratosis; Mental Status 08/12/24 Barriers to Learning one year None evide nt Mandatory Health Literacy Documentation Yes Communication Barrier Present No Health Literacy Communication Barriers N ever Primary Language Bulgarian Problem List Condition Confirmation Course Effective Dates Status Health St atus Informant Changing skin lesion Confirmed Active DM (diabetes mellitus) Confirmed Active End stage renal disease Confirmed Active Hip fracture, right Confirmed Active History of gout Confirmed Active Status post fracture of right hip Confirmed Active Encounter for exam following cancer surgery Confirmed Active History of actinic keratoses Confirmed Active History of squamous cell carcinoma in situ (SCCIS) of skin Confirmed Active Inflamed seborrheic keratosis Confirmed Active Squamous cell carcinoma in situ, lower extremity, left Confirmed Active Actinic keratoses Confirmed Active Neoplasm of uncertain behavior Confirmed Active Seborrheic keratosis Confirmed Active Diagnosis Diagnosis Type Effective Dates Health Status Clinical Service Informant Encounter for exam following cancer surgery Discharge Diagnosis 08/12/24 Non-Specified Seborrheic keratosis Discharge Diagnosis 08/12/24 Non-Specified History of squamous cell carcinoma in situ (SCCIS) of skin Discharge Diagnosis 08/12/24 Non-Specified Neoplasm of uncertain behavior Discharge Diagnosis 08/12/24 Non-Specified Procedures Procedure Date Related Diagnosis Body Site Status Shave biopsy and cauterizati on of skin 1 08/12/24 Completed Shave biopsy and cauterizati on of skin 2 06/14/24 Completed Electrodesiccation with curettage 12/08/23 Completed Shave biopsy and cauterizati on of skin 3 12/08/23 Completed Shave biopsy of skin 4 11/11/23 Co mpleted Fistulogram Right arm AVF w/ captain/airline pilot venous 06/26/23 Completed Stent 06/2023 Completed Electrodesiccation with curettage 5 10/02/22 Completed Punch biopsy 6 05/08/22 Completed Shave biopsy of skin 07/25/21 Comp leted LUE BVT 06/10/21 Completed RUE perc endo AVF creation 03/27/21 Completed Shave biopsy and cauterization of skin 02/08/19 Completed Procedure 7 Completed 11. left forehead 2.left ear 2right tenriism 3ED&C 41. left thigh 2. left proximal chand 3. left medial chand 4. left distal chand 5right dorsal hand 6#4 Punch Cautery used 7gallbladder removal Social History Social History Type Response Smoking Status Never smoked cigaret galo Sex Female Sex Representation Female (finding) Patient Care team information Care Team Personnel Name: KATT Levy Lynn Position: Physician Manager Privacy Exempt - Vasc Surg Member Role: Lifetime Relationship Address: [address] [place] [address] [address] [place] [address] Telecom: [phone] Name: DO Trujillo Brian R Position: Referring Member Role: Primary Care Provider Address: [facility] [address] [place] [address] Telecom: [phone] Care Team Related Persons Name: TAMIKA CABRAL Insurance Providers Guarantor name: TRACI CABRAL Health Plan Information #: 2 Payer: MEDICARE Member Number: [id number] Policy Number: NA Group Number: NA Payer Identifier: [id number] Health Plan Information #: 1 Payer: [employer] [facility] Member Number: [id number] Policy Number: NA Group Number: [id number] Payer Identifier: [id number]
--- NOTE | 2024-08-24 16:54 | Nephrology Consultation ---
Date of Consultation August 24, 2024 Assessment & Plan (1) ESRD (end stage renal disease): Attributed to DKD and hypertension. Maintained on PD. Outpatient Rx: NCCPD 5 x 2.5 L, 90 min dwell, 1000 ml last fill. EDW 76 kg. Orders for nightly PD were placed into the EHR today. Last fill will be held while in the hospital. 2.5% Deflex solution. Karis is non-oliguric and Bumex should be continued her home Rx. Maintain a renal diet and document I/O's. Sevelamer can be provided with meals as inpatient (Auryxia is not available). Sensipar can be held while inpatient. Calcitriol continued per home Rx. Repeat a serum metabolic profile tomorrow AM. (2) Hypertension: Metoprolol per home Rx. UF with PD. (3) Anemia: Maintained on Micera as outpatient. No BANDAR therapy required at this time. History of Present Illness Reason for Consultation: ESKD on PD Requesting Physician: Keegan Young MD Attending Physician: Marisa Nieto MD History of Present Illness Karis is a 74 year-old female with ESKD attributed to DKD. She is maintained on NCCPD through [facility] under the care of Dr. Wing. Unfortunately, due to power outages Karis was not able to perform HD on her cycler last night. She is able to perform manual exchanges. She spent last evening at a hotel due to safety concerns at home. Due to continued personal safety concerns, she presented to the ER at [facility] today requesting to be admitted. She expressed concerns regarding performing dialysis at home and is worried about personal safety due to lack of power. She is able to perform manual exchanges. Abdomen is currently full. Clearance has been excellent but she is experiencing some persistent fluid retention. I discussed the patient's history and plan of care with Dr. Nieto (hospitalist) and Dr. Young (ER). I also discussed with the home therapy nurse from [facility]. Karis is being admitted for observation. NCCPD will be performed this evening. I've discussed orders with the film developing machine operator. PD has otherwise been without complications. Exchanges are clear. Abdomen is benign. Karis started dialysis in May 2023. She presented to the hospital with ACS requiring LAD stent at that time. She transitioned from HD to PD in July 2023. R Arm basilic endovascular AVF was placed by Dr. Subramanian in 2020 with transposition in 2021. Medical history is notable for CAD, DM, hypertension. Karis follows with wound care for LE venous ulcers as well as sacral decubitus ulcers. She has home care nursing on a regular basis. She suffered a fall resulting in R femur fracture requiring ORIF with trochanteric nail placement in late 2023. Complications of her CKD include hyperphosphatemia, secondary hyperparathyroidism, and anemia. Allergies Allergy/AdvReac Type Severity Reaction Status Date / Time insect venom Allergy Intermediate Swelling Verified 08/24/24 15:26 adhesive tape Allergy Mild Rash Verified 08/24/24 15:26 dulaglutide [From [facility]] AdvReac Mild Constipation, Verified 08/24/24 15:26 vomiting Home Medications Medication Instructions Recorded Confirmed Type lancets (Accu-Chek Fastclix Lancet #50 ea 12/16/18 08/10/24 History Drum) mecobalamin (vitamin B12) 1,000 1,000 mcg PO QAM 09/13/20 08/24/24 History mcg chewable tablet (B12 Active) blood sugar diagnostic (Accu-Chek 10/15/21 08/10/24 History SmartView Test Strips) cholecalciferol (vitamin D3) 62.5 62.5 mcg PO HS 06/06/22 08/24/24 History mcg (2,500 unit) capsule Walking Cane #1 ea 06/30/23 08/10/24 Rx triamcinolone acetonide 0.1 % 1 applic topical BID PRN Anxiety 07/28/23 08/24/24 History topical ointment clopidogrel 75 mg tablet 75 mg PO QAM #90 tabs 08/18/23 08/24/24 Rx pen needle, diabetic 32 gauge x #100 ea 08/24/23 08/10/24 Rx 5/32" (BD Nicki 2nd Gen Pen Needle) buspirone 7.5 mg tablet 7.5 mg PO DAILY PRN anxiety #90 09/04/23 08/24/24 Rx tabs rosuvastatin 40 mg tablet 40 mg PO PM 01/27/24 08/24/24 History insulin degludec 100 unit/mL (3 20 unit subcut HS 03/15/24 08/24/24 History mL) subcutaneous pen potassium chloride 10 mEq 20 meq (2 x 10 mEq) PO BID #120 04/15/24 08/24/24 Rx tablet,extended release tabs calcitriol 0.25 mcg capsule 0.25 mcg PO DAILY 04/21/24 08/24/24 History insulin aspart U-100 100 unit/mL 16 unit (0.16 mL) subcut TID 90 08/08/24 08/24/24 Rx (3 mL) subcutaneous pen ( #45 mL FlexPen U-100 Insulin aspart) nystatin 100,000 unit/gram topical 1 applic topical DAILY 30 days #30 08/15/24 0 08/24/24 Rx powder grams blood-glucose sensor (FreeStyle #2 ea 08/16/24 08/17/24 Rx Kvng 3 Plus Sensor device) metoprolol succinate 50 mg 25 mg PO DAILY 08/23/24 08/24/24 History tablet,extended release 24 hr bumetanide 2 mg tablet 4 mg PO BID 08/24/24 08/24/24 History cinacalcet 30 mg tablet 30 mg PO DAILY 08/24/24 08/24/24 History gentamicin 0.1 % topical cream 1 applic topical DAILY 08/24/24 08/24/24 History vitamin B complex and vitamin C 1 cap PO QAM 08/24/24 08/24/24 History no.20-folic acid 1 mg capsule (Triphrocaps) zolpidem 5 mg tablet (Ambien) 5 mg PO HS sleep 08/24/24 08/24/24 History Patient History Medical History Fracture of hip, right, closed (04/20/24) right femoral intertrochanteric fracture with mild gapping from a fall Acute cholecystitis Heart failure with preserved ejection fraction CAD (coronary artery disease) Obesity Non-ST elevation TN (NSTEMI) Pulmonary edema Folate deficiency anemia Metabolic acidosis Stage 5 chronic kidney disease not on chronic dialysis AV fistula right arm--per pt not currently using yet Periodontal pocket Carious teeth Sleep apnea Per 2009 polysomnography (per 02/2021 pulmonology note)- pt declined treatment or repeat study-NO DEVICE Diastolic CHF Chronic kidney disease, stage 4 (severe) Secondary hyperparathyroidism of renal origin History of DVT (deep vein thrombosis) Multiple "small" DVTs (25+ years ago, 6 years ago) Fibroids History of hypothyroidism HX-NO MEDS Sensorineural hearing loss (SNHL) of both ears Family history of colon cancer in mother Surgical History Hx laparoscopic cholecystectomy (01/28/24) Robotic Laparoscopic Cholecystectomy(Not Applicable) - Oseas Madrigal DO, FACS History of coronary artery stent placement S/P arteriovenous (AV) fistula creation RIGHT arm 03/27/21 @ [facility] Dr. Subramanian History of dental surgery History of surgery on arm Right Arm basilic vein transposition 2nd stage @ [facility] Dr. Subramanian 06/10/21 History of colonoscopy Family History Mother Diabetes Renal cell cancer Heart disease Colorectal cancer Hypertension Brother Diabetes Renal cell cancer Heart disease Lung cancer Hypertension Gallbladder disease Father Prostate cancer Heart disease Hypertension Grandmother (Maternal) Colorectal cancer Aunt Diabetes Other Alzheimer disease No family history of adverse response to anesthesia Denies family history of Ovarian cancer Myocardial infarction Breast cancer Social History Smoking Status: Never smoker Second Hand Exposure: No; Do You Dip or Chew Tobacco: No; Hx Alcohol Use: Yes Alcohol type: wine Alcohol Intake Frequency: Monthly or Less Hx Substance Use: No Preferred Language: Malaysian Communication Ability: Effective Visual Impairment: Limited Hearing Ability: Hard of Hearing Annealer Required: No Beliefs That Will Affect Care: None marital status: Single Current Living Situation: Alone current occupational status: retired current occupation: Retired How many Children do You have: 0 Feels Safe at Home: Yes Childhood Exposure to Second-Hand Smoke: No (very little ) Diet: diabetic caffeine: Yes (drinks iced tea every day, sometimes soda ) Dental Care, Regularly: Yes Physical Activity Frequency: 1-2 Times per Week Physical Activity Frequency Comment: weight training, walking Seatbelt Use: always Sunscreen Use: Yes (most times ) Assistive Devices: Cane and Walker Review of Systems Review of Systems: All systems reviewed & are unremarkable except as noted in HPI & below Physical Exam Constitutional: WD/WN, vitals as above + morbidly obese; no acute distress Eyes: + anicteric sclerae ENMT: external ear and nose normal, oropharynx normal Neck: normal visual inspection and trachea midline Respiratory: normal respiratory effort Cardiovascular: Rate/Rhythm: regular rate Extremities: + edema and + AV fistula Gastrointestinal (Abdomen): Percussion/Palpation: abdomen soft; abdomen nontender LLQ PD catheter Musculoskeletal: Extremities: no cyanosis and no clubbing Skin: + dry skin (LE chronic stasis changes); no jaundice Neurologic: Motor/Sensory: no tremor and no asterixis Psychiatric: Orientation: alert and oriented x 3 Results & Data Vital Signs (Past 12 Hours) Vital Signs Temp Pulse Pulse Resp BP BP Pulse Ox 08/24/24 16:09 82 08/24/24 15:29 76 18 168/89 H 99 08/24/24 14:18 77 11 L 96 08/24/24 14:00 183/86 H 08/24/24 14:00 183/86 H 08/24/24 14:00 183/86 H 08/24/24 13:57 98 H 26 H 08/24/24 13:42 81 14 97 08/24/24 13:30 78 26 H 100 08/24/24 13:24 76 23 99 08/24/24 13:15 81 17 100 08/24/24 12:57 78 10 L 161/68 H 100 08/24/24 12:31 78 21 158/67 H 100 08/24/24 12:13 79 08/24/24 12:01 151/63 H 08/24/24 12:00 79 18 98 08/24/24 11:54 80 20 99 08/24/24 11:45 81 24 100 08/24/24 11:33 84 32 H 100 08/24/24 11:31 192/101 H 08/24/24 11:31 192/101 H 08/24/24 11:31 192/101 H 08/24/24 11:15 80 18 100 08/24/24 11:03 86 26 H 100 08/24/24 11:00 181/118 H 08/24/24 10:49 36.6 C 82 20 200/79 H 99 O2 Del Method 08/24/24 16:09 08/24/24 15:29 Room Air 08/24/24 14:18 08/24/24 14:00 08/24/24 14:00 08/24/24 14:00 08/24/24 13:57 08/24/24 13:42 08/24/24 13:30 08/24/24 13:24 08/24/24 13:15 08/24/24 12:57 08/24/24 12:31 08/24/24 12:13 08/24/24 12:01 08/24/24 12:00 08/24/24 11:54 08/24/24 11:45 08/24/24 11:33 08/24/24 11:31 08/24/24 11:31 08/24/24 11:31 08/24/24 11:15 08/24/24 11:03 08/24/24 11:00 08/24/24 10:49 Room Air Laboratory Results Laboratory Results - last 24 hr 08/24/24 08/24/24 11:00 12:19 WBC 8.04 RBC 3.80 L Hgb 12.5 Hct 36.4 L MCV 95.8 MCH 32.9 MCHC 34.3 RDW Std Deviation 52.1 H RDW Coeff of Poornima 14.8 H Plt Count 251 MPV 9.8 Immature Gran % (Auto) 0.2 Neut % (Auto) 78.5 Lymph % (Auto) 12.6 Miner % (Auto) 7.6 Eos % (Auto) 0.6 Baso % (Auto) 0.5 Neut # (Auto) 6.31 Lymph # (Auto) 1.01 L Miner # (Auto) 0.61 H Eos # (Auto) 0.05 Baso # (Auto) 0.04 Immature Gran # (Auto) 0.02 Sodium 130 L Potassium 3.4 L Chloride 91 L Carbon Dioxide 25 Anion Gap 14 H BUN 40 H Creatinine 7.44 H* Est Cr Clr Drug Dosing Not Reportable eGFR 5.25 BUN/Creatinine Ratio 5.4 L Glucose 199 H Calcium 7.4 L Total Bilirubin 0.6 AST 34 ALT 48 Alkaline Phosphatase 111 H Total Protein 5.8 L Albumin 2.7 L Globulin 3.1 Albumin/Globulin Ratio 0.9 PG Care Time/CCT Total # of Minutes Spent Total Time Spent with Patient: Total time spent is greater than 50% in coordination of care (as documented) at patient's floor/unit and/or counseling patient: Coding Level of Care Code 15759 IN/OBS CONSULT LVL 4,60M Diagnoses ESRD (end stage renal disease) N18.6 Essential hypertension I10 Hypertension type: essential hypertension Anemia D64.9 (2) Hypertension Hypertension type: essential hypertension Qualified Code(s): I10 - Essential (primary) hypertension
[2024-08-24] MEDS ORDERED: POLYETHYLENE (MIRALAX) 17 GM PACK PO PRN (17:16)
[2024-08-24] MEDS ORDERED: ACETAMINOPHEN 325 MG TAB PO PRN (17:16)
[2024-08-24] MEDS ORDERED: ONDANSETRON INJ 2 MG/ML 2 ML VIAL IV PRN (17:16)
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
[2024-08-24] MEDS ORDERED: busPIRone 7.5 MG TAB PO PRN (20:21)
[2024-08-24] MEDS ORDERED: GLUCOSE 10 TAB/TUBE PO PRN (20:21)
[2024-08-24] MEDS ORDERED: GLUCAGON FOR INJ 1 MG VIAL SQ PRN (20:21)
[2024-08-24] MEDS ORDERED: DEXTROSE 50% 50 ML SYRINGE IV PRN (20:21)
[2024-08-24] MEDS ORDERED: GLUCOSE 40% GEL 15 GM TUBE PO PRN (20:21)
[2024-08-24] MEDS ORDERED: CARBOHYDRATES FOR HYPOGLYCEMIA PO PRN (20:21)
[2024-08-24] MEDS: GENTAMICIN SULFATE 0.1% CR 15 GM TUBE EXT SCH (21:37)
[2024-08-24] MEDS: ROSUVASTATIN CALCIUM 20 MG TAB PO SCH (21:40)
[2024-08-24] MEDS: POTASSIUM CHLORIDE 10 MEQ TABCR PO SCH (21:40)
[2024-08-24] MEDS: LINEZOLID 600 MG TAB PO SCH (21:40)
[2024-08-24] MEDS: BUMETANIDE 1 MG TAB PO SCH (21:40)
[2024-08-24] MEDS: CHOLECALCIFEROL 125 MCG (5,000 UNITS) TAB PO SCH (21:40)
[2024-08-24] MEDS: INSULIN ASPART PER UNIT CHARGE SC SCH (21:41)
[2024-08-24] MEDS: LANTUS PER UNIT CHARGE SQ SCH (21:42)
[2024-08-24] MEDS: ZOLPIDEM TARTRATE 5 MG TAB PO PRN (21:49)
[2024-08-24] MEDS: MELATONIN 3 MG TAB PO PRN (21:49)
[2024-08-25 06:51] VITALS: O2SAT 98
[2024-08-25] MEDS: CYANOCOBALAMIN (B-12) 500 MCG TABLET PO SCH (09:28)
[2024-08-25] MEDS: CLOPIDOGREL BISULFATE 75 MG TAB PO SCH (09:29)
[2024-08-25] MEDS: METOPROLOL SUCC 25MG EXT REL TAB PO SCH (09:30)
[2024-08-25] MEDS: CINACALCET HCL 30 MG TAB PO SCH (09:30)
[2024-08-25] MEDS: CALCITRIOL 0.25 MCG CAPSULE PO SCH (09:30)
[2024-08-25 09:51] LABS: Anion Gap 9 (3-11); BUN Creatinine Ratio 4.9 (10-20); Blood Urea Nitrogen 36 mg/dl (6-23); Calcium 7.3 mg/dl (8.6-10.3); Carbon Dioxide 29 mmol/L (21-32); Chloride 95 mmol/L (98-107); Glucose 158 mg/dl (70-99(Fasting)); Potassium 3.5 mmol/L (3.5-5.1); Sodium 133 mmol/L (136-145)
--- NOTE | 2024-08-25 09:52 | Electrocardiogram Report ---
Test Reason : Blood Pressure : */* mmHG Vent. Rate : 77 BPM Atrial Rate : 77 BPM P-R Int : 162 ms QRS Dur : 82 ms QT Int : 448 ms P-R-T Axes : 52 -16 28 degrees QTcB Int : 506 ms Normal sinus rhythm Possible Anterior infarct , age undetermined Abnormal ECG When compared with ECG of 20-Apr-2024 00:45, No significant change was found Confirmed by Macario Mendoza ([id number]) on 08/25/2024 9:52:29 AM Referred By: Confirmed By: Macario Mendoza
--- NOTE | 2024-08-25 10:51 | Nephrology Progress Note ---
Date of Service August 25, 2024 Assessment & Plan (1) ESRD (end stage renal disease): Plan: Attributed to DKD and hypertension. Maintained on NCCPD. Outpatient Rx: 5 x 2.5 L, 90 min dwell, 1000 ml last fill. EDW 76 kg. Orders for nightly PD have been placed into the EHR today. Last fill will be held while in the hospital. 2.5% Delflex solution. If discharged before power returns, we can coordinate a plan for continuing manual exchanges at home. Continue Bumex per home Rx. Maintain a renal diet and document I/O's. Sevelamer can be provided with meals as inpatient (Auryxia is not available). Sensipar can be held while inpatient. Calcitriol continued per home Rx. (2) Hypertension: Plan: Euvolemic. BP controlled. (3) Anemia: Plan: No BANDAR therapy required at this time. Admission and Anticipated Discharge Date Admission Date: August 24, 2024 Subjective No acute events overnight. Tolerated PD well. No complications with treatment. Karis endorses no complaints. Edema improved. Review of Systems Review of Systems: All systems reviewed & are unremarkable except as noted in HPI & below Physical Exam Constitutional: WD/WN, vitals as above no acute distress Eyes: + anicteric sclerae ENMT: external ear and nose normal, oropharynx normal Respiratory: normal respiratory effort Cardiovascular: Rate/Rhythm: regular rate Extremities: + edema (improved) and + AV fistula Gastrointestinal (Abdomen): Percussion/Palpation: abdomen soft; abdomen nontender Musculoskeletal: Extremities: no cyanosis and no clubbing Skin: + dry skin (LE chronic stasis changes); no jaundice Neurologic: Motor/Sensory: no tremor and no asterixis Psychiatric: Orientation: alert and oriented x 3 Results & Data Vital Signs (Past 12 Hours) Vital Signs Temp Pulse Resp BP Pulse Ox O2 Del Method 08/25/24 08:45 36.8 C 82 20 08/25/24 06:50 36.9 C 88 18 130/75 98 Room Air Laboratory Results Laboratory Results - last 24 hr 08/24/24 08/24/24 08/24/24 11:00 12:19 20:36 WBC 8.04 RBC 3.80 L Hgb 12.5 Hct 36.4 L MCV 95.8 MCH 32.9 MCHC 34.3 RDW Std Deviation 52.1 H RDW Coeff of Poornima 14.8 H Plt Count 251 MPV 9.8 Immature Gran % (Auto) 0.2 Neut % (Auto) 78.5 Lymph % (Auto) 12.6 Ramsey % (Auto) 7.6 Eos % (Auto) 0.6 Baso % (Auto) 0.5 Neut # (Auto) 6.31 Lymph # (Auto) 1.01 L Ramsey # (Auto) 0.61 H Eos # (Auto) 0.05 Baso # (Auto) 0.04 Immature Gran # (Auto) 0.02 Sodium 130 L Potassium 3.4 L Chloride 91 L Carbon Dioxide 25 Anion Gap 14 H BUN 40 H Creatinine 7.44 H* Est Cr Clr Drug Dosing Not Reportable eGFR 5.25 BUN/Creatinine Ratio 5.4 L Glucose 199 H POC Glucose 194 H Calcium 7.4 L Total Bilirubin 0.6 AST 34 ALT 48 Alkaline Phosphatase 111 H Total Protein 5.8 L Albumin 2.7 L Globulin 3.1 Albumin/Globulin Ratio 0.9 08/25/24 08/25/24 07:36 09:10 WBC RBC Hgb Hct MCV MCH MCHC RDW Std Deviation RDW Coeff of Poornima Plt Count MPV Immature Gran % (Auto) Neut % (Auto) Lymph % (Auto) Ramsey % (Auto) Eos % (Auto) Baso % (Auto) Neut # (Auto) Lymph # (Auto) Ramsey # (Auto) Eos # (Auto) Baso # (Auto) Immature Gran # (Auto) Sodium 133 L Potassium 3.5 Chloride 95 L Carbon Dioxide 29 Anion Gap 9 BUN 36 H Creatinine 7.39 H* Est Cr Clr Drug Dosing Not Reportable eGFR 5.30 BUN/Creatinine Ratio 4.9 L Glucose 158 H POC Glucose 227 H Calcium 7.3 L Total Bilirubin AST ALT Alkaline Phosphatase Total Protein Albumin Globulin Albumin/Globulin Ratio PG Care Time/CCT Total # of Minutes Spent Total Time Spent with Patient: Total time spent is greater than 50% in coordination of care (as documented) at patient's floor/unit and/or counseling patient: Coding Level of Care Code 39348 SUB INP/OBS CARE 3/50MIN Diagnoses ESRD (end stage renal disease) N18.6 Essential hypertension I10 Hypertension type: essential hypertension Anemia D64.9 (2) Hypertension Hypertension type: essential hypertension Qualified Code(s): I10 - Essential (primary) hypertension
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
[2024-08-25] MEDS: LOPERAMIDE HCL 2 MG CAP PO STA (20:43)
[2024-08-25] MEDS: HEPARIN SOD 5,000 UNIT/0.5 ML VIAL SQ SCH (20:45)
--- NOTE | 2024-08-26 12:03 | Nephrology Progress Note ---
Date of Service August 26, 2024 Assessment & Plan (1) ESRD (end stage renal disease): Plan: Attributed to DKD and hypertension. Maintained on NCCPD. Outpatient Rx: 5 x 2.5 L, 90 min dwell, 1000 ml last fill. EDW 76 kg. Completed PD last night with adequate UF and clearance. I was contacted by [facility] today. Margaux will be discharged to rehab later today. While at [facility], she will transition to IHD. Continue Bumex per home Rx. Maintain a renal diet and document I/O's. Sevelamer can be provided with meals as inpatient (Auryxia is not available). Sensipar can be held while inpatient. Calcitriol continued per home Rx. (2) Hypertension: Plan: Euvolemic. BP controlled. (3) Anemia: Plan: No BANDAR therapy required at this time. Admission and Anticipated Discharge Date Admission Date: August 24, 2024 Subjective No acute events overnight. No complications with PD. Exchanges completed without complications. Effluent clear. Abdomen benign. Margaux unfortunately is experiencing some weakness and discomfort in her legs. She is interested in rehab at [facility]. Review of Systems Review of Systems: All systems reviewed & are unremarkable except as noted in HPI & below Physical Exam Constitutional: WD/WN, vitals as above + morbidly obese; no acute distress Eyes: + anicteric sclerae ENMT: external ear and nose normal, oropharynx normal Neck: normal visual inspection and trachea midline Respiratory: normal respiratory effort Cardiovascular: Rate/Rhythm: regular rate Extremities: + edema (improved) and + AV fistula Gastrointestinal (Abdomen): Percussion/Palpation: abdomen soft; abdomen nontender Musculoskeletal: Extremities: no cyanosis and no clubbing Skin: + dry skin (LE chronic stasis changes); no jaundice Neurologic: Motor/Sensory: no tremor and no asterixis Psychiatric: Orientation: alert and oriented x 3 Results & Data Vital Signs (Past 12 Hours) Vital Signs Temp Pulse Resp BP Pulse Ox O2 Del Method 08/26/24 08:00 36.8 C 69 15 08/26/24 08:00 36.8 C 69 15 124/69 98 Room Air Laboratory Results Laboratory Results - last 24 hr 08/25/24 08/25/24 08/26/24 16:26 20:05 07:28 POC Glucose 143 H 230 H 173 H 08/26/24 11:24 POC Glucose 104 H PG Care Time/CCT Total # of Minutes Spent Total Time Spent with Patient: Total time spent is greater than 50% in coordination of care (as documented) at patient's floor/unit and/or counseling patient: Coding Level of Care Code 31635 SUB INP/OBS CARE 3/50MIN Diagnoses ESRD (end stage renal disease) N18.6 Essential hypertension I10 Hypertension type: essential hypertension Anemia D64.9 (2) Hypertension Hypertension type: essential hypertension Qualified Code(s): I10 - Essential (primary) hypertension
[2024-08-26] MEDS ORDERED: oxyCODONE HCL IR 5 MG TAB (IMMEDIATE RELEASE) PO PRN (13:32)
[2024-08-26 13:46] VITALS: RESP 16
[2024-08-26 14:11] VITALS: BP 160/83; PULSE 71; TEMP 97.3
[2024-08-26] MEDS: GABAPENTIN 100 MG CAP PO SCH (14:21)
[2024-08-26] MEDS: ACETAMINOPHEN 325 MG TAB PO SCH (14:21)
[2024-08-26] MEDS: LIDOCAINE 5% 1 PATCH TD STA (14:22)
[2024-08-26 15:34] LABS: BUN Creatinine Ratio 5.1 (10-20); Calcium 7.5 mg/dl (8.6-10.3); Creatinine Clr Calc Pharmacy 7.2 ml/min
[2024-08-26 16:01] LABS: Hep B Surface Ag with confirm Negative (Negative)
[2024-08-26 16:10] LABS: Hepatitis B Surface Antibody Immune
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
== END 2024-08-26 17:10 | DRG 698 ==
LOC: ED 10:47 → 3N 18:28

== ENCOUNTER 2024-12-07 19:32 | Inpatient (IN) ==
--- NOTE | 2024-12-07 19:44 | Emergency Department Note ---
Impression & Plan Wound infection, Diarrhea, Hyperlactatemia ED Provider Note CHIEF COMPLAINT: Right leg wound, redness, pain, diabetic HISTORY OF PRESENTING ILLNESS: The patient is a 74-year-old female with a PMH diabetes, hypertension, hyperlipidemia, CAD on Plavix, ESRD on home peritoneal dialysis, ambulatory dysfunction who presents to the emergency department due to a diabetic ulcer on the right lower leg. She confirms being evaluated at wound care today where she was sent home with wound care instructions and for a follow-up next week but when she returned home she noticed increasing pain and redness in that area. She also reports intermittent nausea and diarrhea for the past couple of days. She does confirm that she skipped dialysis 2 nights ago and that yesterday "did not get a lot of fluid off". She denies fever, chills, chest pain, shortness of breath, abdominal pain, urinary symptoms. She has a known ulcer on her right buttock area and the top of her right foot but those are well-appearing and are not giving her trouble at this time. REVIEW OF SYSTEMS: See HPI for pertinent positives and pertinent negatives. ALLERGIES: Dulaglutide, insect venom, adhesive tape, seasonal allergies MEDICATIONS: See below PAST MEDICAL HISTORY: See below PHYSICAL EXAM: VITALS: Vitals are noted on the nurses note and reviewed by myself. Vital signs stable. GENERAL: 74-year-old female, in no acute distress, nondiaphoretic, well- developed well-nourished. SKIN: Capillary refill less than 2 seconds. Area of erythema surrounding an ulcer on the right lateral lower leg. The area is warm and tender to touch. HEENT: Normocephalic. PERRLA. EOMI. Nares patent. Mucous membranes moist. Neck is supple without nuchal rigidity. HEART: Regular rate and rhythm without murmurs gallops or rubs. LUNGS: CTA BL without wheezes, rales or rhonchi. No retractions or accessory muscle use. ABDOMEN: Positive BS x 4. Soft, nontender, without masses or organomegaly. No guarding or rebound tenderness. Indwelling catheter noted. MUSCULOSKELETAL: No gross musculoskeletal defects. NEURO: Patient was alert and oriented. Normal sensation on exam. No focal neurological deficits. DIFFERENTIAL DIAGNOSIS: Cellulitis, abscess, diabetic ulcer, osteomyelitis, sepsis, gastroenteritis, among others. ED COURSE AND MEDICAL DECISION MAKING: HISTORY FROM INDEPENDENT HISTORIAN: The patient herself and her home health aide Genny. MEDICATIONS GIVEN: Zosyn 4.5 g, vancomycin 1750 mg IV MONITOR: Continuous bus driver/monitor: Order was placed for continuous bus driver/monitor. Patient was placed on the bus driver/monitor and continuous pulse ox. Patient was noted to be in normal sinus rhythm at an initial rate of 81 bpm per my interpretation. EKG: EKG was interpreted by myself as normal sinus rhythm. No obvious arrhythmias. No significant change when compared to previous EKG from 10/04/2024. INTERPRETATION OF LABS: I interpreted the labs with full lab results as below in the lab section of this note. Pertinent lab results discussed in the MDM section below. INTERPRETATION OF IMAGING: No images were obtained. ESCALATION OF CARE CONSIDERED: Escalation of care was considered due to the patient's past medical history and presentation with a wound infection. Labs were obtained showing an elevated lactate and procalcitonin. The patient was admitted for IV antibiotics and monitoring. CONSULTATIONS: On-call [facility] hospitalist - Presented the patient to the provider and that I do believe that she would benefit from IV antibiotics as well as her elevated lactate and procalcitonin. They agreed to evaluating the patient and admitting her to medicine. MDM SUMMARY: I evaluated the 74-year-old female who presents to the emergency department due to a right leg wound with increased redness and pain for a day. See HPI and physical exam above. IV access was established and labs were obtained. Patient denies the need for pain management. The wound is described as above and a photo was in the chart from the wound care visit today. There is no significant spread of erythema outside of the skin marker but it is warm and tender to touch. No leukocytosis WBC 6.08. RBC 2.79. Hemoglobin hematocrit 9.4/27.6. These levels are lower but within this patient's normal limits. Mild hyponatremia 133. BUN 45. Creatinine 7.77. Patient is on dialysis and these are within her normal limits although mildly elevated. Lactate 2.3. Procalcitonin 0.70. The stool bio fire was ordered as the patient has been having intermittent diarrhea for the past couple of days but she was not able to provide a stool sample here in the emergency department. A consultation with the on-call hospitalist can be seen in detail above. The patient was started on Zosyn and vancomycin here in the emergency department. The patient does have a wound culture pending from her wound care visit as well as from the emergency department which may require altering antibiotics for Pseudomonas coverage. The patient was admitted for IV antibiotic treatment for wound infection and for elevated lactate/procalcitonin levels. Patient is agreeable to admission and all questions were answered. The patient was admitted in stable condition. DIAGNOSIS: Wound infection, diarrhea, hyperlactatemia The chart was completed utilizing [employer] voice recognition software. Grammatical errors, random word insertions, pronoun errors, and incomplete sentences are an occasional consequence of this system due to software limitations, ambient noise, and hardware issues. Any formal questions or concerns about the content, text, or information contained within the body of this dictation should be directly addressed to the provider for clarification. Past Med/Surg History Problem List (Updated 12/07/24 @ 22:09 by Alla Olmstead PA-C) Hyperlactatemia (Acute) Diarrhea (Acute) Wound infection (Acute) Persistent disorder of initiating or maintaining sleep Edema of lower extremity (Chronic) Hyperglycemia (Acute) Dialysis patient (Acute) Anemia (Acute) Ambulatory dysfunction Venous reflux Cellulitis of right foot Volume overload ESRD on peritoneal dialysis (Acute) MRSA infection Diabetic ulcer of right foot (Acute) Blister of foot Chronic venous insufficiency Stage III pressure ulcer of right buttock (Acute) Abnormal ankle brachial index (MAINE) (Acute) Edema of lower extremity Diabetic ulcer of right great toe (Acute) Osteoporosis Decubitus ulcer of sacral region, stage 2 Venous ulcer of right leg (Acute) Hypertension Anemia due to chronic kidney disease (Acute) Type 2 diabetes mellitus with obesity Hypercholesterolemia Non-proliferative diabetic retinopathy, both eyes Gout (Acute) Vitamin D deficiency Complex renal cyst Medical History Elevated troponin Hyponatremia Hypokalemia Generalized weakness Anxiety Associated dyspnea per pulmonology Fracture of hip, right, closed (04/20/24) right femoral intertrochanteric fracture with mild gapping from a fall Acute cholecystitis Heart failure with preserved ejection fraction CAD (coronary artery disease) Obesity Non-ST elevation TX (NSTEMI) Pulmonary edema Folate deficiency anemia Metabolic acidosis AV fistula right arm--per pt not currently using yet Periodontal pocket Carious teeth Sleep apnea Per 2009 polysomnography (per 02/2021 pulmonology note)- pt declined treatment or repeat study-NO DEVICE Diastolic CHF Chronic kidney disease, stage 4 (severe) Secondary hyperparathyroidism of renal origin History of DVT (deep vein thrombosis) Multiple "small" DVTs (25+ years ago, 6 years ago) Fibroids History of hypothyroidism HX-NO MEDS Sensorineural hearing loss (SNHL) of both ears Family history of colon cancer in mother Surgical History Status post-operative repair of hip fracture Hx laparoscopic cholecystectomy (01/28/24) Robotic Laparoscopic Cholecystectomy(Not Applicable) - Oseas Madrigal, DO, FACS History of coronary artery stent placement S/P arteriovenous (AV) fistula creation RIGHT arm 03/27/21 @ [facility] Dr. Subramanian History of dental surgery History of surgery on arm Right Arm basilic vein transposition 2nd stage @ [facility] Dr. Subramanian 06/10/21 History of colonoscopy Family History Mother Diabetes Renal cell cancer Heart disease Colorectal cancer Hypertension Brother Diabetes Renal cell cancer Heart disease Lung cancer Hypertension Gallbladder disease Father Prostate cancer Heart disease Hypertension Grandmother (Maternal) Colorectal cancer Aunt Diabetes Other Alzheimer disease No family history of adverse response to anesthesia Denies family history of Ovarian cancer Myocardial infarction Breast cancer Social History Smoking Status: Never smoker Second Hand Exposure: No; Do You Dip or Chew Tobacco: No; Tobacco Cessation Education Requested by Patient: No Hx Alcohol Use: No Hx Substance Use: No Preferred Language: Telugu Communication Ability: Effective Visual Impairment: Limited Hearing Ability: Hard of Hearing Chief Sustainability Officer Required: No Beliefs That Will Affect Care: None marital status: Single Current Living Situation: Alone Current Living Situation Comment: caregivers 4 hrs a day current occupational status: retired current occupation: Retired How many Children do You have: 0 Other Information That Helps Us Care for You: No Feels Safe at Home: Yes Safety Concerns: Feels Safe At This Time Childhood Exposure to Second-Hand Smoke: No (very little ) Diet: diabetic caffeine: Yes (drinks iced tea every day, sometimes soda ) Dental Care, Regularly: Yes Physical Activity Frequency: 1-2 Times per Week Physical Activity Frequency Comment: weight training, walking Seatbelt Use: always Sunscreen Use: Yes (most times ) Assistive Devices: Walker and Wheelchair Allergies Allergies Allergy/AdvReac Type Severity Reaction Status Date / Time insect venom Allergy Intermediate Swelling Verified 12/07/24 14:07 adhesive tape Allergy Mild Rash Verified 12/07/24 14:07 pollen extracts Allergy Mild "Seasonal Verified 12/07/24 22:51 allergies" dulaglutide [From Trulicity] AdvReac Mild Constipation, Verified 12/07/24 14:07 vomiting Home Meds Home Medications Medication Instructions Recorded Confirmed lancets (Accu-Chek Fastclix Lancet #50 ea 12/16/18 12/07/24 Drum) mecobalamin (vitamin B12) 1,000 1,000 mcg PO QPM 09/13/20 12/07/24 mcg chewable tablet (B12 Active) blood sugar diagnostic (Accu-Chek 10/15/21 12/07/24 SmartView Test Strips) cholecalciferol (vitamin D3) 62.5 62.5 mcg PO QPM 06/06/22 12/07/24 mcg (2,500 unit) capsule triamcinolone acetonide 0.1 % 1 applic topical BID PRN skin 07/28/23 12/07/24 topical ointment issues insulin degludec 100 unit/mL (3 30 unit subcut HS 03/15/24 12/07/24 mL) subcutaneous pen (Tresiba FlexTouch U-100 insulin) calcitriol 0.25 mcg capsule 0.25 mcg PO QPM 04/21/24 12/07/24 gentamicin 0.1 % topical cream 1 applic topical UD 08/24/24 12/07/24 vitamin B complex and vitamin C 1 cap PO QPM 08/24/24 12/07/24 no.20-folic acid 1 mg capsule (Triphrocaps) buspirone 7.5 mg tablet 75 mg PO QPM 12/07/24 12/07/24 clopidogrel 75 mg tablet 75 mg PO QPM 12/07/24 12/07/24 furosemide 80 mg tablet 80 mg PO BID 12/07/24 12/07/24 insulin aspart U-100 100 unit/mL 8 unit subcut AC 12/07/24 12/07/24 (3 mL) subcutaneous pen (Novolog FlexPen U-100 Insulin aspart) metoprolol succinate 25 mg 25 mg PO QPM 12/07/24 12/07/24 tablet,extended release 24 hr potassium chloride 10 mEq 20 meq PO QPM 12/07/24 12/07/24 tablet,extended release zolpidem 10 mg tablet 10 mg PO HS 12/07/24 12/07/24 Previous Rx's Medication Instructions Recorded Walking Cane #1 ea 06/30/23 pen needle, diabetic 32 gauge x #100 ea 08/24/23 5/32" (BD Nicki 2nd Gen Pen Needle) blood-glucose sensor (FreeStyle #2 ea 08/16/24 Kvng 3 Plus Sensor device) rosuvastatin 40 mg tablet 40 mg PO PM #90 tabs 12/06/24 Results & Data (ED) Vital Signs Vital Signs - 24 hr 12/07/24 19:36 12/07/24 22:35 Temperature 36.7 C Temperature Source Temporal Artery Scan Pulse Rate 85 82 Pulse Rhythm Regular Pulse Strength Normal Respiratory Rate 19 Respiratory Effort / Characteristics Non-Labored Spontaneous Respiratory Depth Normal Respiratory Pattern Regular Blood Pressure 163/92 H Blood Pressure Mean 115 Blood Pressure Position Sitting Pulse Oximetry 100 Oxygen Delivery Method Room Air Sepsis Recent Fever Within 48 Hours No Sepsis New/Unexplained Change in Mental Status N/A Sepsis Action Taken by Nursing No Action Required Laboratory Data 12/08/24 06:17 12/08/24 06:17 Lab Results 12/07/24 12/07/24 Range/Units 20:11 22:25 WBC 6.08 (4.8-10.8) K/ul RBC 2.79 L (4.20-5.40) M/uL Hgb 9.4 L (12.0-16.0) g/dl Hct 27.6 L (37.0-47.0) % MCV 98.9 (80.0-100.0) fL MCH 33.7 (25.0-34.0) pg MCHC 34.1 (32.0-36.0) g/dL RDW Std Deviation 53.1 H (36.4-46.3) fL RDW Coeff of Poornima 14.6 H (11.5-14.5) % Plt Count 252 (130-400) K/uL MPV 10.4 (9.4-12.4) fL Immature Gran % (Auto) 0.3 % Neut % (Auto) 69.6 % Lymph % (Auto) 17.3 % Jessamine % (Auto) 9.0 % Eos % (Auto) 3.1 % Baso % (Auto) 0.7 % Neut # (Auto) 4.23 (1.40-6.50) K/uL Lymph # (Auto) 1.05 L (1.20-3.40) K/uL Jessamine # (Auto) 0.55 (0.11-0.59) K/uL Eos # (Auto) 0.19 (0.00-0.50) K/uL Baso # (Auto) 0.04 (0.00-0.20) K/uL Immature Gran # (Auto) 0.02 (0.01-0.20) K/uL Sodium 133 L (136-145) mmol/L Potassium 4.6 (3.5-5.1) mmol/L Chloride 97 L (98-107) mmol/L Carbon Dioxide 26 (21-32) mmol/L Anion Gap 10 (3-11) BUN 45 H (6-23) mg/dl Creatinine 7.77 H* (0.6-1.2) mg/dl Est Cr Clr Drug Dosing Not Reportable eGFR 4.99 BUN/Creatinine Ratio 5.8 L (10-20) Glucose 200 H (70-99(Fasting)) mg/dl Lactate 2.3 H* 1.7 (0.4-2.0) mmol/L Calcium 8.2 L (8.6-10.3) mg/dl Total Bilirubin 0.4 (0.2-1.0) mg/dl AST 51 H (13-39) U/L ALT 58 H (7-52) U/L Alkaline Phosphatase 82 (34-104) U/L Total Protein 5.0 L (6.0-8.3) gm/dl Albumin 2.4 L (3.4-5.0) gm/dl Globulin 2.6 (2.5-4.0) gm/dl Albumin/Globulin Ratio 0.9 (0.9-2) Procalcitonin 0.70 H (0-0.5) ng/ml Administered Medications Furosemide (Furosemide 80 Mg Tab) 80 mg PO BID17 EARNESTINE Stop: 01/07/25 08:59 Last Admin: 12/08/24 08:45 Dose: 80 mg Documented By: CA Heparin Sodium (Porcine) (Heparin Sod 5,000 Unit/0.5 Ml Vial) 5,000 units SQ Q12 EARNESTINE Stop: 01/07/25 08:59 Last Admin: 12/08/24 08:46 Dose: Not Given Documented By: JIL Piperacillin Sod/Tazobactam Sod (Zosyn) 4.5 gm in 100 mls @ 25 mls/hr IV Q12H EARNESTINE; Protocol Stop: 12/15/24 00:26 Last Infusion: 12/08/24 10:29 Dose: Infused Documented By: Admin: 12/08/24 06:20 Dose: 25 mls/hr Documented By: ADIN Insulin Aspart (Insulin Aspart Per Unit Charge) 0 units SC ACHS EARNESTINE Stop: 01/07/25 07:29 Last Admin: 12/08/24 11:41 Dose: Not Given Documented By: Admin: 12/08/24 08:45 Dose: Not Given Documented By: JIL Insulin Glargine (Lantus Per Unit Charge) 14 units SQ BID EARNESTINE Stop: 01/07/25 08:59 Last Admin: 12/08/24 08:46 Dose: Not Given Documented By: JIL Discontinued Medications Piperacillin Sod/Tazobactam Sod (Zosyn) 4.5 gm in 100 mls @ 200 mls/hr IV NOW ONE; Protocol Stop: 12/07/24 22:29 Last Infusion: 12/07/24 23:28 Dose: Infused Documented By: Admin: 12/07/24 22:21 Dose: 200 mls/hr Documented By: HUMZA Vancomycin HCl 1,750 mg/ (Sodium Chloride) 535 mls @ 200 mls/hr IV NOW ONE Stop: 12/08/24 00:40 Last Infusion: 12/08/24 01:55 Dose: Infused Documented By: Admin: 12/07/24 23:14 Dose: 200 mls/hr Documented By: HUMZA Zolpidem Tartrate (Zolpidem Tartrate 5 Mg Tab) 10 mg PO NOW STA Stop: 12/08/24 01:27 Last Admin: 12/08/24 01:43 Dose: 10 mg Documented By: ADIN Discharge Plan Visit Data Chief Complaint: Wound Stated Complaint: RT LEG WOUND, REDNESS, PAIN, DIABETIC ED Provider: Sang Meza ED Midlevel Provider: Alla Olmstead Discharge Problem: Wound infection, Diarrhea, Hyperlactatemia Patient Disposition: Admitted As Inpatient Condition: Good Discharge Instructions Interventions: ED Discharge Assessment Last Done: 12/07/24 23:52 Discharge Problem: Diarrhea Qualifiers: Diarrhea type: unspecified type Qualified Code(s): R19.7 - Diarrhea, unspecified
[2024-12-07 20:34] LABS: Hematocrit (blood only) 27.6 % (37.0-47.0); Hemoglobin 9.4 g/dl (12.0-16.0); Immature Granulocytes # (auto) 0.02 K/uL (0.01-0.20); Immature Granulocytes % (auto) 0.3 %; Mean Corpuscular Hemoglobin 33.7 pg (25.0-34.0); Mean Corpuscular Volume 98.9 fL (80.0-100.0); Platelet Count 252 K/uL (130-400); RDW Standard Deviation 53.1 fL (36.4-46.3); Red Blood Count 2.79 M/uL (4.20-5.40); White Blood Count 6.08 K/ul (4.8-10.8)
[2024-12-07 20:58] LABS: Alanine Aminotransferase 58 U/L (7-52); Albumin Globulin Ratio 0.9 (0.9-2); Albumin Level 2.4 gm/dl (3.4-5.0); Alkaline Phosphatase 82 U/L (34-104); Anion Gap 10 (3-11); Bilirubin,Total 0.4 mg/dl (0.2-1.0); Blood Urea Nitrogen 45 mg/dl (6-23); Calcium 8.2 mg/dl (8.6-10.3); Carbon Dioxide 26 mmol/L (21-32); Chloride 97 mmol/L (98-107); Globulin 2.6 gm/dl (2.5-4.0); Glucose 200 mg/dl (70-99(Fasting)); Potassium 4.6 mmol/L (3.5-5.1); Sodium 133 mmol/L (136-145); Total Protein 5.0 gm/dl (6.0-8.3)
--- NOTE | 2024-12-07 21:49 | History & Physical Report ---
Date of Service December 07, 2024 Assessment & Plan (1) Type 2 diabetes mellitus with obesity: (2) Hypercholesterolemia: (3) Hypertension: (4) Edema of lower extremity: (5) Wound infection: (6) Dialysis patient: (7) Diarrhea: Plan Ms. Guthrie is a 74 y.o. F with PMHx of T2DM, ESRD on peritoneal dialysis, CAD, HTN who presents to the hospital due to RLE cellulitis. #RLE Wound - does not meet sepsis criteria at this time, WBC count WNL, vitals stable - likely cellulitis of RLE - given 1 dose of Zosyn in ED - Gram stain shows no WBCs, many Gram + coccis; wound culture pending - Lactate 2.3 - start Zosyn + Daptomycin Abx - AM CMP and CBC #N/V/Diarrhea - could be due to gastroenteritis, anxiety, infection - Procalcitonin 0.7, WBC count WNL, vitals stable - Biofire pending - Continue to monitor labs and vitals #ESRD - patient does peritoneal dialysis at home daily - will aim to continue daily dialysis regimen while in hospital - will attempt to have patient home supplies brought in - continue home potassium chloride, furosemide, calcitriol - Cr 7.77, baseline 6.5-7.5 #CAD - continue home metoprolol, clopidogrel #T2DM - discontinue home regimen - start sliding scale insulin #HLD - hold home rosuvastatin Dispo: admit PCU tele Code: Conditional Diet: heart healthy, T2DM, dialysis renal VTE Prophylaxis: heparin History of Present Illness Chief Complaint: RLE wound Primary Care Provider: Unruly Trujillo DO Ms. Guthrie is a 74 y.o. F with PMHx of T2DM, ESRD on peritoneal dialysis, HTN who presents to the hospital due to RLE cellulitis. Patient had a wound clinic appointment today afternoon. At appointment, she was told her RLE wound may be infected and to come to ED for any changes in symptoms or pain. Redness around her wound was marked at appointment. Approximately 1-2 hours after the appointment, patient reports nausea, vomiting, diarrhea, redness around wound, and intermittent pain. Reports two non-bloody vomiting episodes since arriving to ED. States her diarrhea is baseline but worsened yesterday. She has not noticed the redness extend beyond marked parameters. Of note, patient is on daily peritoneal dialysis. Her last dialysis was yesterday night, however she skipped the dialysis session the night before. Denies SOB, CP, AP, LH, dizziness, fever, chills. She uses a wheelchair. No other acute complaints. Allergies Allergy/AdvReac Type Severity Reaction Status Date / Time insect venom Allergy Intermediate Swelling Verified 12/07/24 14:07 adhesive tape Allergy Mild Rash Verified 12/07/24 14:07 pollen extracts Allergy Mild "Seasonal Verified 12/07/24 22:51 allergies" [facility] AdvReac Mild Constipation, Verified 12/07/24 14:07 vomiting Home Medications Medication Instructions Recorded Confirmed Type lancets (Accu-Chek Fastclix Lancet #50 ea 12/16/18 12/07/24 History Drum) mecobalamin (vitamin B12) 1,000 1,000 mcg PO QPM 09/13/20 12/07/24 History mcg chewable tablet (B12 Active) blood sugar diagnostic (Accu-Chek 10/15/21 12/07/24 History SmartView Test Strips) cholecalciferol (vitamin D3) 62.5 62.5 mcg PO QPM 06/06/22 12/07/24 History mcg (2,500 unit) capsule Walking Cane #1 ea 06/30/23 12/07/24 Rx triamcinolone acetonide 0.1 % 1 applic topical BID PRN skin 07/28/23 12/07/24 History topical ointment issues pen needle, diabetic 32 gauge x #100 ea 08/24/23 12/07/24 Rx 5/32" (BD Nicki 2nd Gen Pen Needle) insulin degludec 100 unit/mL (3 30 unit subcut HS 03/15/24 12/07/24 History mL) subcutaneous pen (Tresiba FlexTouch U-100 insulin) calcitriol 0.25 mcg capsule 0.25 mcg PO QPM 04/21/24 12/07/24 History blood-glucose sensor (FreeStyle #2 ea 08/16/24 12/07/24 Rx Kvng 3 Plus Sensor device) gentamicin 0.1 % topical cream 1 applic topical UD 08/24/24 12/07/24 History vitamin B complex and vitamin C 1 cap PO QPM 08/24/24 12/07/24 History no.20-folic acid 1 mg capsule (Triphrocaps) rosuvastatin 40 mg tablet 40 mg PO PM #90 tabs 12/06/24 12/07/24 Rx buspirone 7.5 mg tablet 75 mg PO QPM 12/07/24 12/07/24 History clopidogrel 75 mg tablet 75 mg PO QPM 12/07/24 12/07/24 History furosemide 80 mg tablet 80 mg PO BID 12/07/24 12/07/24 History insulin aspart U-100 100 unit/mL 8 unit subcut AC 12/07/24 12/07/24 History (3 mL) subcutaneous pen (Novolog FlexPen U-100 Insulin aspart) metoprolol succinate 25 mg 25 mg PO QPM 12/07/24 12/07/24 History tablet,extended release 24 hr potassium chloride 10 mEq 20 meq PO QPM 12/07/24 12/07/24 History tablet,extended release zolpidem 10 mg tablet 10 mg PO HS 12/07/24 12/07/24 History Past Med/Surg History Problem List (Updated 12/07/24 @ 22:09 by Alla Olmstead PA-C) Hyperlactatemia (Acute) Diarrhea (Acute) Wound infection (Acute) Persistent disorder of initiating or maintaining sleep Edema of lower extremity (Chronic) Hyperglycemia (Acute) Dialysis patient (Acute) Anemia (Acute) Ambulatory dysfunction Venous reflux Cellulitis of right foot Volume overload ESRD on peritoneal dialysis (Acute) MRSA infection Diabetic ulcer of right foot (Acute) Blister of foot Chronic venous insufficiency Stage III pressure ulcer of right buttock (Acute) Abnormal ankle brachial index (MAINE) (Acute) Edema of lower extremity Diabetic ulcer of right great toe (Acute) Osteoporosis Decubitus ulcer of sacral region, stage 2 Venous ulcer of right leg (Acute) Hypertension Anemia due to chronic kidney disease (Acute) Type 2 diabetes mellitus with obesity Hypercholesterolemia Non-proliferative diabetic retinopathy, both eyes Gout (Acute) Vitamin D deficiency Complex renal cyst Medical History Elevated troponin Hyponatremia Hypokalemia Generalized weakness Anxiety Associated dyspnea per pulmonology Fracture of hip, right, closed (04/20/24) right femoral intertrochanteric fracture with mild gapping from a fall Acute cholecystitis Heart failure with preserved ejection fraction CAD (coronary artery disease) Obesity Non-ST elevation [place] (NSTEMI) Pulmonary edema Folate deficiency anemia Metabolic acidosis AV fistula right arm--per pt not currently using yet Periodontal pocket Carious teeth Sleep apnea Per 2009 polysomnography (per 02/2021 pulmonology note)- pt declined treatment or repeat study-NO DEVICE Diastolic CHF Chronic kidney disease, stage 4 (severe) Secondary hyperparathyroidism of renal origin History of DVT (deep vein thrombosis) Multiple "small" DVTs (25+ years ago, 6 years ago) Fibroids History of hypothyroidism HX-NO MEDS Sensorineural hearing loss (SNHL) of both ears Family history of colon cancer in mother Surgical History Status post-operative repair of hip fracture Hx laparoscopic cholecystectomy (01/28/24) Robotic Laparoscopic Cholecystectomy(Not Applicable) - Oseas Madrigal DO, FACS History of coronary artery stent placement S/P arteriovenous (AV) fistula creation RIGHT arm 03/27/21 @ [facility] Dr. Subramanian History of dental surgery History of surgery on arm Right Arm basilic vein transposition 2nd stage @ [facility] Dr. Subramanian 06/10/21 History of colonoscopy Family History Mother Diabetes Renal cell cancer Heart disease Colorectal cancer Hypertension Brother Diabetes Renal cell cancer Heart disease Lung cancer Hypertension Gallbladder disease Father Prostate cancer Heart disease Hypertension Grandmother (Maternal) Colorectal cancer Aunt Diabetes Other Alzheimer disease No family history of adverse response to anesthesia Denies family history of Ovarian cancer Myocardial infarction Breast cancer Social History Smoking Status: Never smoker Second Hand Exposure: No; Do You Dip or Chew Tobacco: No; Tobacco Cessation Education Requested by Patient: No Hx Alcohol Use: No Hx Substance Use: No Preferred Language: Turkish Communication Ability: Effective Visual Impairment: Limited Hearing Ability: Hard of Hearing Life Science Research Assistant Required: No Beliefs That Will Affect Care: None marital status: Single Current Living Situation: Alone Current Living Situation Comment: caregivers 4 hrs a day current occupational status: retired current occupation: Retired How many Children do You have: 0 Other Information That Helps Us Care for You: No Feels Safe at Home: Yes Safety Concerns: Feels Safe At This Time Childhood Exposure to Second-Hand Smoke: No (very little ) Diet: diabetic caffeine: Yes (drinks iced tea every day, sometimes soda ) Dental Care, Regularly: Yes Physical Activity Frequency: 1-2 Times per Week Physical Activity Frequency Comment: weight training, walking Seatbelt Use: always Sunscreen Use: Yes (most times ) Assistive Devices: Walker Review of Systems Constitutional: as per Subjective / HPI Physical Exam Constitutional: WD/WN, vitals as above Respiratory: normal respiratory effort, lungs clear to auscultation Cardiovascular: Rate/Rhythm: regular rate and regular rhythm Heart Sounds: normal S1 and normal S2 Extremities: + edema (b/l LE) Gastrointestinal (Abdomen): normal bowel sounds, soft, nontender, no hepatosplenomegaly Skin: open ulcer wound on R dorsal foot, R lateral leg; slightly extending erythema beyond marked parameter around lateral leg wound, nontender around lateral leg wound Psychiatric: A+Ox3, euthymic affect Results & Data Results & Data Vital Signs (Past 12 Hours) Vital Signs Temp Pulse Resp BP Pulse Ox O2 Del Method 12/07/24 19:36 36.7 C 85 19 163/92 H 100 Room Air Supervising Physician Co-Signing Physician Notes Attending addendum: I have physically seen this patient, have supervised the medical residents activities, and agree with the H&P unless as otherwise noted. Assessment and Plan: The patient is a 74-year-old female with past medical history including diabetes mellitus, ESRD on peritoneal dialysis every evening from about 9 PM to 9 AM, CAD, hypertension, anemia due to chronic disease, hyperlipidemia, and insomnia. She was seen at wound care clinic earlier today for her usual visit, and did have debridement of some lower extremity wounds on the right. Patient presents to the emergency department with concerns regarding right lower extremity infection due to worsening pain. Right lower extremity diabetic ulcer- Has a known issue with decreased MAINE, but has been reported to be adequate for healing Zosyn 4.5 g IV every 8 hours Daptomycin IV per pharmacokinetic monitoring Gram stain shows no WBCs, many gram-positive cocci, and wound culture is pending Follow serial CBC with differential and chemistry profile Stage III pressure ulcer of right buttock- Status post debrided earlier in the day at wound care Antibiotics as above Consulting Wound Care while in hospital ESRD on peritoneal dialysis- Patient typically has dialysis from 9 PM to 9 AM Coordinating PD while in hospital Continue calcitriol, cholecalciferol, Triphrocaps Creatinine close to baseline at 7.77 Consulting nephrology Nausea/vomiting/diarrhea- Studies ordered, but not able to provide specimen Zofran 4 mg IV every 6 hours as needed CAD/hypertension- Continue metoprolol, clopidogrel, and furosemide Diabetes mellitus- Hold insulin aspart 8 units SQ AC Insulin degludec nonformulary, changed from 30 units to glargine 14 units SQ twice daily Placed on Accu-Cheks with NovoLog SSI Hyperlipidemia- Continue rosuvastatin Resident Activity Tracking Resident Involvement: Resident Care Provided Care Provided: Adult Hospital Medicine (3) Hypertension Hypertension type: essential hypertension Qualified Code(s): I10 - Essential (primary) hypertension (7) Diarrhea Diarrhea type: unspecified type Qualified Code(s): R19.7 - Diarrhea, unspecified
[2024-12-07] MEDS ORDERED: VANCOMYCIN CONSULT ACTIVE PRN (22:00)
[2024-12-07] MEDS: PIPERACILLIN/TAZOBACTAM 4.5 GM/100 ML BAG IV ONE (22:21)
[2024-12-07] MEDS ORDERED: MELATONIN 3 MG TAB PO PRN (22:37)
[2024-12-07] MEDS ORDERED: ONDANSETRON INJ 2 MG/ML 2 ML VIAL IV PRN (22:37)
[2024-12-07] MEDS ORDERED: ALUMINUM/MAGNESIUM SUSP 30 ML UDC PO PRN (22:37)
[2024-12-07] MEDS ORDERED: POLYETHYLENE (MIRALAX) 17 GM PACK PO PRN (22:37)
[2024-12-07] MEDS ORDERED: MAGNESIUM HYDROXIDE SUSP 30 ML UDC PO PRN (22:37)
[2024-12-07] MEDS ORDERED: ACETAMINOPHEN 325 MG TAB PO PRN (22:37)
[2024-12-07] MEDS: VANCOMYCIN HCL 1,750 MG in SODIUM CHLORIDE 0.9% 500 ML IV ONE (23:14)
[2024-12-08] MEDS ORDERED: DEXTROSE 50% 50 ML SYRINGE IV PRN (00:27)
[2024-12-08] MEDS ORDERED: GLUCOSE 40% GEL 15 GM TUBE PO PRN (00:27)
[2024-12-08] MEDS ORDERED: GLUCAGON FOR INJ 1 MG VIAL SQ PRN (00:27)
[2024-12-08] MEDS ORDERED: CARBOHYDRATES FOR HYPOGLYCEMIA PO PRN (00:27)
[2024-12-08] MEDS ORDERED: GLUCOSE 10 TAB/TUBE PO PRN (00:27)
[2024-12-08] MEDS: ZOLPIDEM TARTRATE 5 MG TAB PO STA (01:43)
[2024-12-08] MEDS: PIPERACILLIN/TAZOBACTAM 4.5 GM/100 ML BAG IV SCH (06:20)
[2024-12-08 07:13] LABS: Hematocrit (blood only) 25.2 % (37.0-47.0); Hemoglobin 8.5 g/dl (12.0-16.0); Immature Granulocytes # (auto) 0.03 K/uL (0.01-0.20); Immature Granulocytes % (auto) 0.5 %; Mean Corpuscular Hemoglobin 33.2 pg (25.0-34.0); Mean Corpuscular Volume 98.4 fL (80.0-100.0); Platelet Count 238 K/uL (130-400); RDW Standard Deviation 53.1 fL (36.4-46.3); Red Blood Count 2.56 M/uL (4.20-5.40); White Blood Count 6.56 K/ul (4.8-10.8)
[2024-12-08 07:49] LABS: Alanine Aminotransferase 50.0 U/L (7-52); Albumin Globulin Ratio 1.0 (0.9-2); Albumin Level 2.2 gm/dl (3.4-5.0); Alkaline Phosphatase 72.0 U/L (34-104); Anion Gap 10.0 (3-11); Bilirubin,Total 0.4 mg/dl (0.2-1.0); Blood Urea Nitrogen 45.0 mg/dl (6-23); Calcium 7.6 mg/dl (8.6-10.3); Carbon Dioxide 24.0 mmol/L (21-32); Chloride 99.0 mmol/L (98-107); Creatinine Clr Calc Pharmacy 6.4 ml/min; Globulin 2.2 gm/dl (2.5-4.0); Glucose 93.0 mg/dl (70-99(Fasting)); Potassium 4.8 mmol/L (3.5-5.1); Sodium 133.0 mmol/L (136-145); Total Protein 4.4 gm/dl (6.0-8.3)
[2024-12-08] MEDS: FUROSEMIDE 80 MG TAB PO SCH (08:45)
[2024-12-08] MEDS: INSULIN ASPART PER UNIT CHARGE SC SCH (08:45)
[2024-12-08] MEDS: LANTUS PER UNIT CHARGE SQ SCH (08:46)
[2024-12-08] MEDS: HEPARIN SOD 5,000 UNIT/0.5 ML VIAL SQ SCH (08:46)
--- NOTE | 2024-12-08 08:47 | Nephrology Consultation ---
Date of Consultation December 08, 2024 Assessment & Plan (1) ESRD on peritoneal dialysis: Attributed to DKD and hypertension. Maintained on PD. Outpatient Rx: NCCPD 5 x 2.5 L, 90 min dwell, 1000 ml last fill. EDW 76 kg. Weight recently ~81.5 kg. Volume status is acceptable. Electrolytes normal. Plan to continue with NCCPD with treatment tonight. Bumex should be continued her home Rx. Maintain a renal diet and document I/O's. Sevelamer can be provided with meals as inpatient (Auryxia is not available). Sensipar can be held while inpatient. Calcitriol continued per home Rx. Repeat a serum metabolic profile tomorrow AM. (2) Anemia: Maintained on Micera as outpatient --> 150 mcg provided December 06. Iron levels have been at goal while maintained on Auryxia. (3) Cellulitis of right foot: Started on Zosyn and daptomycin. Management per hospitalist team. History of Present Illness Reason for Consultation: ESRD on PD Requesting Physician: Tylor Moreau MD Attending Physician: Tylor Moreau MD History of Present Illness Karis is a 74 year-old female with ESKD attributed to DKD. She is maintained on NCCPD through [facility] under the care of Dr. Wing. Started HD 06/20/23. Current Rx 7x week: 5 cycles x 2.5 L with 90 min dwell and 1 L last fill option with no day exchange. EDW 76. Recently Karis's weight has been 81.5 kg and stable. She is using a 2.5% deflex. Clearance has been at goal. Margaux has had some difficulty with UF. This is at least partially related to chronic hyperglycemia. Dialysis has otherwise been without issue. Karis has chronic sacral wound and recent right foot wound. She has chronic lower extremity edema and venous insufficiency. Venous ablation performed on 11/23/24. Karis was seen by Dr. Wing in the dialysis clinic on December 02. Records were reviewed. She presented to the ER at [facility] yesterday with N/V and diarrhea. Evaluation demonstrated evidence of RLE cellulitis for which antibiotic therapy with Zosyn and daptomycin has been initiated. I discussed recent history and plan of care with Dr. Moreau this AM. She was admitted to [facility] in September with weakness and debility with hyperkalemia. She completed treatment with Linezolid for MRSA positive infection of the wound in August. Karis was admitted to [facility] in and March. She completed rehab at [facility] following her most recent admission for myopathy attributed to ESKD and illness. While at [facility], Karis was maintained on hemodialysis via RUE AVF. Karis presented to the ER at [facility] on September 23 with lower extremity cramping, difficulty sleeping and seasonal allergies. At that time, she reported concerns about going home due to difficulty sleeping at home. Karis does have some anxiety regarding potential hypoglycemia. She struggles with blood glucose control. Karis started dialysis in May 2023. She presented to the hospital with ACS requiring LAD stent at that time. She transitioned from HD to PD in July 2023. R Arm basilic endovascular AVF was placed by Dr. Subramanian in 2020 with transposition in 2021. Medical history is notable for CAD, DM, hypertension. Karis follows with wound care for LE venous ulcers as well as sacral decubitus ulcers. She has home care nursing on a regular basis. She suffered a fall resulting in R femur fracture requiring ORIF with trochanteric nail placement in late 2023. Complications of her CKD include hyperphosphatemia, secondary hyperparathyroidism, and anemia. Allergies Allergy/AdvReac Type Severity Reaction Status Date / Time insect venom Allergy Intermediate Swelling Verified 12/07/24 14:07 adhesive tape Allergy Mild Rash Verified 12/07/24 14:07 pollen extracts Allergy Mild "Seasonal Verified 12/07/24 22:51 allergies" dulaglutide [From [facility]] AdvReac Mild Constipation, Verified 12/07/24 14:07 vomiting Home Medications Medication Instructions Recorded Confirmed Type lancets (Accu-Chek Fastclix Lancet #50 ea 12/16/18 12/07/24 History Drum) mecobalamin (vitamin B12) 1,000 1,000 mcg PO QPM 09/13/20 12/07/24 History mcg chewable tablet (B12 Active) blood sugar diagnostic (Accu-Chek 10/15/21 12/07/24 History SmartView Test Strips) cholecalciferol (vitamin D3) 62.5 62.5 mcg PO QPM 06/06/22 12/07/24 History mcg (2,500 unit) capsule Walking Cane #1 ea 06/30/23 12/07/24 Rx triamcinolone acetonide 0.1 % 1 applic topical BID PRN skin 07/28/23 12/07/24 History topical ointment issues pen needle, diabetic 32 gauge x #100 ea 08/24/23 12/07/24 Rx 5/32" (BD Nicki 2nd Gen Pen Needle) insulin degludec 100 unit/mL (3 30 unit subcut HS 03/15/24 12/07/24 History mL) subcutaneous pen (Tresiba FlexTouch U-100 insulin) calcitriol 0.25 mcg capsule 0.25 mcg PO QPM 04/21/24 12/07/24 History blood-glucose sensor (FreeStyle #2 ea 08/16/24 12/07/24 Rx Kvng 3 Plus Sensor device) gentamicin 0.1 % topical cream 1 applic topical UD 08/24/24 12/07/24 History vitamin B complex and vitamin C 1 cap PO QPM 08/24/24 12/07/24 History no.20-folic acid 1 mg capsule (Triphrocaps) rosuvastatin 40 mg tablet 40 mg PO PM #90 tabs 12/06/24 12/07/24 Rx buspirone 7.5 mg tablet 75 mg PO QPM 12/07/24 12/07/24 History clopidogrel 75 mg tablet 75 mg PO QPM 12/07/24 12/07/24 History furosemide 80 mg tablet 80 mg PO BID 12/07/24 12/07/24 History insulin aspart U-100 100 unit/mL 8 unit subcut AC 12/07/24 12/07/24 History (3 mL) subcutaneous pen (Novolog FlexPen U-100 Insulin aspart) metoprolol succinate 25 mg 25 mg PO QPM 12/07/24 12/07/24 History tablet,extended release 24 hr potassium chloride 10 mEq 20 meq PO QPM 12/07/24 12/07/24 History tablet,extended release zolpidem 10 mg tablet 10 mg PO HS 12/07/24 12/07/24 History Patient History Medical History Elevated troponin Hyponatremia Hypokalemia Generalized weakness Anxiety Associated dyspnea per pulmonology Fracture of hip, right, closed (04/20/24) right femoral intertrochanteric fracture with mild gapping from a fall Acute cholecystitis Heart failure with preserved ejection fraction CAD (coronary artery disease) Obesity Non-ST elevation [place] (NSTEMI) Pulmonary edema Folate deficiency anemia Metabolic acidosis AV fistula right arm--per pt not currently using yet Periodontal pocket Carious teeth Sleep apnea Per 2009 polysomnography (per 02/2021 pulmonology note)- pt declined treatment or repeat study-NO DEVICE Diastolic CHF Chronic kidney disease, stage 4 (severe) Secondary hyperparathyroidism of renal origin History of DVT (deep vein thrombosis) Multiple "small" DVTs (25+ years ago, 6 years ago) Fibroids History of hypothyroidism HX-NO MEDS Sensorineural hearing loss (SNHL) of both ears Family history of colon cancer in mother Surgical History Status post-operative repair of hip fracture Hx laparoscopic cholecystectomy (01/28/24) Robotic Laparoscopic Cholecystectomy(Not Applicable) - Oseas Madrigal, DO, FACS History of coronary artery stent placement S/P arteriovenous (AV) fistula creation RIGHT arm 03/27/21 @ [facility] Dr. Subramanian History of dental surgery History of surgery on arm Right Arm basilic vein transposition 2nd stage @ [facility] Dr. Subramanian 06/10/21 History of colonoscopy Family History Mother Diabetes Renal cell cancer Heart disease Colorectal cancer Hypertension Brother Diabetes Renal cell cancer Heart disease Lung cancer Hypertension Gallbladder disease Father Prostate cancer Heart disease Hypertension Grandmother (Maternal) Colorectal cancer Aunt Diabetes Other Alzheimer disease No family history of adverse response to anesthesia Denies family history of Ovarian cancer Myocardial infarction Breast cancer Social History Smoking Status: Never smoker Second Hand Exposure: No; Do You Dip or Chew Tobacco: No; Tobacco Cessation Education Requested by Patient: No Hx Alcohol Use: No Hx Substance Use: No Preferred Language: Turkmen Communication Ability: Effective Visual Impairment: Limited Hearing Ability: Hard of Hearing Corn Crop Supervisor Required: No Beliefs That Will Affect Care: None marital status: Single Current Living Situation: Alone Current Living Situation Comment: caregivers 4 hrs a day current occupational status: retired current occupation: Retired How many Children do You have: 0 Other Information That Helps Us Care for You: No Feels Safe at Home: Yes Safety Concerns: Feels Safe At This Time Childhood Exposure to Second-Hand Smoke: No (very little ) Diet: diabetic caffeine: Yes (drinks iced tea every day, sometimes soda ) Dental Care, Regularly: Yes Physical Activity Frequency: 1-2 Times per Week Physical Activity Frequency Comment: weight training, walking Seatbelt Use: always Sunscreen Use: Yes (most times ) Assistive Devices: Walker and Wheelchair Review of Systems Review of Systems: All systems reviewed & are unremarkable except as noted in HPI & below Physical Exam Constitutional: well developed; no acute distress Eyes: + anicteric sclerae ENMT: external ear and nose normal, oropharynx normal Neck: normal visual inspection and trachea midline Respiratory: normal respiratory effort Cardiovascular: Rate/Rhythm: regular rate Extremities: + edema and + AV fistula Gastrointestinal (Abdomen): Percussion/Palpation: abdomen soft; abdomen nontender Musculoskeletal: Extremities: no cyanosis and no clubbing Skin: no jaundice Neurologic: Motor/Sensory: no tremor and no asterixis Psychiatric: Orientation: alert and oriented x 3 Results & Data Vital Signs (Past 12 Hours) Vital Signs Temp Pulse Pulse Resp BP BP Pulse Ox 12/08/24 07:00 83 12/08/24 03:51 36.7 C 97 H 14 181/83 H 97 12/08/24 00:49 12/08/24 00:48 36.3 C L 88 18 161/81 H 96 12/08/24 00:25 77 12/07/24 23:52 86 16 200/109 H 96 12/07/24 22:35 82 O2 Del Method 12/08/24 07:00 12/08/24 03:51 Room Air 12/08/24 00:49 Room Air 12/08/24 00:48 Room Air 12/08/24 00:25 12/07/24 23:52 Room Air 12/07/24 22:35 Laboratory Results Laboratory Results - last 24 hr 12/07/24 12/07/24 12/08/24 20:11 22:25 06:17 WBC 6.08 6.56 RBC 2.79 L 2.56 L Hgb 9.4 L 8.5 L Hct 27.6 L 25.2 L MCV 98.9 98.4 MCH 33.7 33.2 MCHC 34.1 33.7 RDW Std Deviation 53.1 H 53.1 H RDW Coeff of Poornima 14.6 H 14.6 H Plt Count 252 238 MPV 10.4 10.3 Immature Gran % (Auto) 0.3 0.5 Neut % (Auto) 69.6 61.4 Lymph % (Auto) 17.3 24.8 Dare % (Auto) 9.0 8.7 Eos % (Auto) 3.1 4.1 Baso % (Auto) 0.7 0.5 Neut # (Auto) 4.23 4.03 Lymph # (Auto) 1.05 L 1.63 Dare # (Auto) 0.55 0.57 Eos # (Auto) 0.19 0.27 Baso # (Auto) 0.04 0.03 Immature Gran # (Auto) 0.02 0.03 Sodium 133 L 133 L Potassium 4.6 4.8 Chloride 97 L 99 Carbon Dioxide 26 24 Anion Gap 10 10 BUN 45 H 45 H Creatinine 7.77 H* 7.50 H* Est Cr Clr Drug Dosing Not Reportable 6.4 eGFR 4.99 5.20 BUN/Creatinine Ratio 5.8 L 6.0 L Glucose 200 H 93 Lactate 2.3 H* 1.7 Calcium 8.2 L 7.6 L Total Bilirubin 0.4 0.4 AST 51 H 45 H ALT 58 H 50 Alkaline Phosphatase 82 72 Total Protein 5.0 L 4.4 L Albumin 2.4 L 2.2 L Globulin 2.6 2.2 L Albumin/Globulin Ratio 0.9 1.0 Procalcitonin 0.70 H PG Care Time/CCT Total # of Minutes Spent Total Time Spent with Patient: Total time spent is greater than 50% in coordination of care (as documented) at patient's floor/unit and/or counseling patient: Coding Level of Care Code 99476 IN/OBS CONSULT LVL 5,80M Diagnoses ESRD on peritoneal dialysis N18.6; Z99.2 Anemia D64.9 Anemia type: unspecified type Cellulitis of right foot L03.115 (2) Anemia Anemia type: unspecified type Qualified Code(s): D64.9 - Anemia, unspecified
--- NOTE | 2024-12-08 10:54 | Electrocardiogram Report ---
Test Reason : Blood Pressure : */* mmHG Vent. Rate : 81 BPM Atrial Rate : 81 BPM P-R Int : 148 ms QRS Dur : 80 ms QT Int : 402 ms P-R-T Axes : 44 -11 28 degrees QTcB Int : 466 ms Normal sinus rhythm Normal ECG When compared with ECG of 04-Oct-2024 11:46, Premature atrial complexes are no longer Present T wave inversion no longer evident in Lateral leads Confirmed by Junior Martins ([id number]) on 12/08/2024 10:54:12 AM Referred By: REFERRED SELF Confirmed By: Junior Martins
--- NOTE | 2024-12-08 11:10 | Hospitalist Progress Note ---
"Date of Service December 08, 2024 Assessment & Plan (1) Type 2 diabetes mellitus with obesity: (2) Hypercholesterolemia: (3) Hypertension: (4) Edema of lower extremity: (5) Wound infection: (6) Dialysis patient: (7) Diarrhea: Plan 74-year-old female with past medical history including diabetes mellitus, ESRD on peritoneal dialysis every evening from about 9 PM to 9 AM, CAD, hypertension, anemia due to chronic disease, hyperlipidemia, and insomnia. She was seen at wound care clinic earlier today for her usual visit, and did have debridement of some lower extremity wounds on the right. Patient presents to the emergency department with concerns regarding right lower extremity infection due to worsening pain. No leukocytosis but Lactate 2.3 on admission. She has a history of MRSA wounds. She was admitted for IV antibiotics. #RLE Wound / Cellulitis - has known issue with decreased MAINE, but is been reported to be adequate for healing - Wound culture with Staph aureus, sensitivities pending - Continue Zosyn + daptomycin IV - AM CMP and CBC #N/V/Diarrhea - could be due to gastroenteritis, anxiety, infection - Procalcitonin 0.7, WBC WNL, vitals stable - Biofire pending - Continue to monitor labs and vitals #ESRD | Dialysis - baseline creatinine 6.5-7.5 - patient does peritoneal dialysis at home daily - Nephrology consulted and following - Continue calcitriol, cholecalciferol, Triphrocaps #T2DM - Home regimen insulin aspart 8 units SQ AC, Insulin degludec - nonformulary, changed from 30 units to glargine 14 units SQ twice daily - Placed on Accu-Cheks with NovoLog SSI #HLD - hold home rosuvastatin while on daptomycin #CAD | HTN - continue home metoprolol, clopidogrel, and furosemide Dispo: Anticipate discharge in next 24-48 hours VTE Prophylaxis: heparin Reviewed outpatient records Admission and Anticipated Discharge Date Admission Date: December 07, 2024 Subjective Patient seen and evaluated at bedside. She reports that her RLE is feeling somewhat better pain-tuttle. She states that she did not do peritoneal dialysis last night due to not having the supplies. She plans to do it tonight. We discussed her pending wound culture and antibiotic regimen. She is frustrated because she wants to go home today, I explained that I recommend she continues her inpatient stay here today. She reports she is bored and gets poor sleep in the hospital. Offered crosswords, magazines, etc. to patient but she declines. RN reports she refused BSG checks and wants to use her Dexcom device for monitoring, she refused her insulin and heparin. No additional complaints or concerns at this time. Physical Exam Physical Exam: General: No acute distress, nondiaphoretic, well-developed, well-nourished. Skin: Warm, dry. 2+ pitting edema in ankles and feet bilaterally. Right lower extremity mildly tender to touch. Optifoam on lateral RLE. Right dorsal foot covered in dressing. Cardiac: Regular rate and rhythm without murmurs gallops or rubs. Pulm: Clear to auscultation bilaterally without wheezes, rales or rhonchi. Normal respiratory effort. 97% on room air. Abdominal: Soft, nontender, nondistended. Bowel sounds present. Neuro: A&O x3. No focal neurological deficits. Results & Data Results & Data Vital Signs (Past 12 Hours) Vital Signs Temp Pulse Pulse Resp BP BP Pulse Ox 12/08/24 07:00 83 12/08/24 03:51 98.1 F 97 H 14 181/83 H 97 12/08/24 00:49 12/08/24 00:48 97.4 F L 88 18 161/81 H 96 12/08/24 00:25 77 12/07/24 23:52 86 16 200/109 H 96 O2 Del Method 12/08/24 07:00 12/08/24 03:51 Room Air 12/08/24 00:49 Room Air 12/08/24 00:48 Room Air 12/08/24 00:25 12/07/24 23:52 Room Air Laboratory Results Reviewed CBC with differential Reviewed CMP, chemistries Reviewed wound cultures PG Care Time/CCT Total # of Minutes Spent Total Time Spent with Patient: Total time spent is greater than 50% in coordination of care (as documented) at patient's floor/unit and/or counseling patient: Coding Level of Care Code 77247 SUB INP/OBS CARE 3/50MIN Diagnoses Type 2 diabetes mellitus with obesity E11.69; E66.9 Hypercholesterolemia E78.00 Essential hypertension I10 Hypertension type: essential hypertension Edema of lower extremity R60.0 Wound infection T14.8XXA; L08.9 Dialysis patient Z99.2 Diarrhea R19.7 Diarrhea type: unspecified type (3) Hypertension Hypertension type: essential hypertension Qualified Code(s): I10 - Essential (primary) hypertension (7) Diarrhea Diarrhea type: unspecified type Qualified Code(s): R19.7 - Diarrhea, unspecified"
[2024-12-08] MEDS: CALCITRIOL 0.25 MCG CAPSULE PO SCH (20:24)
[2024-12-08] MEDS: CLOPIDOGREL BISULFATE 75 MG TAB PO SCH (20:24)
[2024-12-08] MEDS: METOPROLOL SUCC 25MG EXT REL TAB PO SCH (20:24)
[2024-12-08] MEDS: busPIRone 15 MG TAB PO SCH (20:24)
[2024-12-08] MEDS: DAPTOmycin 400 MG in SYRINGE 0 ML IV SCH (20:24)
[2024-12-08] MEDS: POTASSIUM CHLORIDE 10 MEQ TABCR PO SCH (20:24)
[2024-12-08] MEDS: ZOLPIDEM TARTRATE 5 MG TAB PO SCH (22:01)
[2024-12-09 07:32] LABS: Hematocrit (blood only) 25.7 % (37.0-47.0); Hemoglobin 8.6 g/dl (12.0-16.0); Mean Corpuscular Hemoglobin 33.0 pg (25.0-34.0); Mean Corpuscular Volume 98.5 fL (80.0-100.0); Platelet Count 251 K/uL (130-400); RDW Standard Deviation 53.1 fL (36.4-46.3); Red Blood Count 2.61 M/uL (4.20-5.40); White Blood Count 5.57 K/ul (4.8-10.8)
[2024-12-09 07:49] VITALS: BP 170/89; RESP 17; TEMP 98.1; O2SAT 97
[2024-12-09 08:26] LABS: Anion Gap 7.0 (3-11); Blood Urea Nitrogen 39.0 mg/dl (6-23); Calcium 7.9 mg/dl (8.6-10.3); Carbon Dioxide 27.0 mmol/L (21-32); Chloride 98.0 mmol/L (98-107); Creatinine Clr Calc Pharmacy 6.9 ml/min; Glucose 303.0 mg/dl (70-99(Fasting)); Potassium 4.5 mmol/L (3.5-5.1); Sodium 132.0 mmol/L (136-145)
--- NOTE | 2024-12-09 10:08 | Discharge Summary ---
Discharge Summary Date of Service December 09, 2024 Principal Dx & Hospital Course #1 = Principal Diagnosis (1) Type 2 diabetes mellitus with obesity: (2) Hypercholesterolemia: (3) Hypertension: (4) Edema of lower extremity: (5) Wound infection: (6) Dialysis patient: (7) Diarrhea: Plan 74-year-old female with past medical history including diabetes mellitus, ESRD on peritoneal dialysis every evening from about 9 PM to 9 AM, CAD, hypertension, anemia due to chronic disease, hyperlipidemia, and insomnia. She was seen at wound care clinic earlier today for her usual visit, and did have debridement of some lower extremity wounds on the right. Patient presents to the emergency department with concerns regarding right lower extremity infection due to worsening pain. No leukocytosis but Lactate 2.3 on admission. She has a history of MRSA wounds. She was admitted for IV antibiotics. #RLE Wound / Cellulitis - has known issue with decreased MAINE, but is been reported to be adequate for healing - Wound cultures grew MSSA, resistant to erythromycin - Treated with Zosyn + daptomycin IV while inpatient, transitioned to clindamycin 300 mg QID x 5 more days on discharge - Continue daily wound care. Follow-up with wound care clinic #N/V/Diarrhea - could be due to gastroenteritis, anxiety, infection - Procalcitonin 0.7, WBC WNL, vitals stable - Stool Biofire ordered but never produced a sample #ESRD | Dialysis - baseline creatinine 6.5-7.5 - patient does peritoneal dialysis at home daily - Nephrology consulted and followed during hospitalization - Continue calcitriol, cholecalciferol, Triphrocaps #T2DM - Home regimen insulin aspart 8 units SQ AC, Insulin degludec - nonformulary, changed from 30 units to glargine 14 units SQ twice daily - Placed on Accu-Cheks with NovoLog SSI - Hyperglycemic throughout admission secondary to refusing insulin. Met with clinical staff educator who reviewed her regimen with her - Resumed home regimen on discharge #HLD - rosuvastatin held while on daptomycin, resumed on discharge #CAD | HTN - continue home metoprolol, clopidogrel, and furosemide Dispo: discharged home 12/05 VTE Prophylaxis: heparin Notes For Next Care Provider Recommend close monitoring of her diabetes and adjusting regimen as needed. Blood sugar significantly elevated throughout hospital stay due to Karis refusing insulin while admitted. Medication Changes From Visit Clindamycin 300 mg 4 times daily x 5 days Admission HPI Per Admitting Provider Ms. Guthrie is a 74 y.o. F with PMHx of T2DM, ESRD on peritoneal dialysis, HTN who presents to the hospital due to RLE cellulitis. Patient had a wound clinic appointment today afternoon. At appointment, she was told her RLE wound may be infected and to come to ED for any changes in symptoms or pain. Redness around her wound was marked at appointment. Approximately 1-2 hours after the appointment, patient reports nausea, vomiting, diarrhea, redness around wound, and intermittent pain. Reports two non-bloody vomiting episodes since arriving to ED. States her diarrhea is baseline but worsened yesterday. She has not noticed the redness extend beyond marked parameters. Of note, patient is on daily peritoneal dialysis. Her last dialysis was yesterday night, however she skipped the dialysis session the night before. Denies SOB, CP, AP, LH, dizziness, fever, chills. She uses a wheelchair. No other acute complaints. Discharge Exam General: No acute distress, nondiaphoretic, well-developed, well-nourished. Skin: Warm, dry. 1+ pitting edema in ankles and feet bilaterally. Lateral right lower extremity wound covered with Optifoam. No tenderness to palpation of right lower extremity. Right dorsal foot covered in dressing. Cardiac: Regular rate and rhythm without murmurs gallops or rubs. Pulm: Clear to auscultation bilaterally without wheezes, rales or rhonchi. Normal respiratory effort. 97% on room air. Abdominal: Soft, nontender, nondistended. Bowel sounds present. Neuro: A&O x3. No focal neurological deficits. Discharge Plan Discharge Items Patient Disposition: Home - Self-Care Reason For Visit: RLE WOUND Discharge Diagnosis: Right lower extremity cellulitis Condition on Discharge: Good Activity: Resume your previous activity Non-emergency contact: Primary Care Provider Call non-emergency contact if: you have any medication questions, your symptoms worsen, your pain is not controlled and you have a fever Follow-up/Referrals: Unruly Trujillo DO [Primary Care Provider] - 12/12/24 2:30 pm (Hospital follow up on December 12 at 2:30 pm.) Diet: Carb Consistent or DM2, Dialysis Renal and Heart Healthy Addtl Attending Provider Instructions: Karis, You were admitted to the hospital due to a cellulitis infection. Cellulitis is an infection of the skin/soft tissues caused by bacteria. Bacteria can enter the body through broken skin; this can happen with a cut, scratch, or insect bite. You have been treated in the hospital with IV antibiotics, and will be discharged with oral antibiotics to continue taking at home. Upon discharge from the hospital: * Take clindamycin (oral antibiotic) 4 times daily x 5 more days. Take this antibiotic as directed until it is gone. Take it even if you feel better. It treats the infection and prevents it from returning. Not taking all of the medicine can make future infections harder to treat. Oral antibiotics can cause GI upset so I recommend taking your oral antibiotic with food to prevent nausea/vomiting/diarrhea. * Continue daily wound care to your right lower extremity, right foot, and right buttock. Continue to follow-up with the wound care clinic as directed. * Continue your peritoneal dialysis as directed by nephrology. * Follow the recommendations regarding your diabetic regimen as outlined by the clinical staff educator below. * Follow-up with your PCP in 1-2 weeks. Please return to the hospital if you experience any of the following: Fever of 100.5 F or higher, trouble or pain with moving the joints above or below the infected area, discharge or pus draining from the infected area, pain that gets worse in or around the infected area, redness that gets worse and around the infected area, shaking chills, worsened swelling of the infected area, persistent vomiting, lightheadedness, dizziness, passing out, shortness of breath, difficulty breathing, or chest pain. [employer] Trimmer Provider Instructions: DIABETES RECOMMENDATIONS: 1.) Since Tresiba is a slow/long-acting insulin, adjusting the dose from day to day makes very little/if any difference in blood sugar levels. Instead, recommend you take the same dose of Tresiba every day but adjust the dose overtime according to trends in blood sugar levels, especially fasting. 2.) Try to take Novolog 5 units before each meal. Adjust the dose according to before-meal blood sugar level. Pending Studies at Discharge: No Stand-Alone Forms: My 1-800-DENTIST, Smoking Cessation Medications and DC Order Prescriptions: New clindamycin HCl [Cleocin HCl] 300 mg Capsule 300 mg PO Q6 Qty: 20 0RF Continued (DME) pen needle, diabetic [BD Nicki 2nd Gen Pen Needle] 32 gauge x 5/32" needle See Rx Instructions .Route Qty: 100 11RF Rx Instructions: use to inject 3 times daily insulin degludec [Tresiba FlexTouch U-100] 100 unit/mL (3 mL) insulin pen 30 unit subcut HS Patient Comments: CONFIRMED W/ PT THAT SHE IS TAKING TRESIBA 18-20 UNITS DAILY. (DME) FreeStyle Kvng 3 Plus Sensor Device See Rx Instructions .Route Qty: 2 5RF Rx Instructions: change sensor Q15 D rosuvastatin 40 mg tablet 40 mg PO PM Qty: 90 3RF cholecalciferol (vitamin D3) 62.5 mcg (2,500 unit) capsule 62.5 mcg PO QPM B12 Active 1,000 mcg tablet,chewable 1,000 mcg PO QPM (DME) lancets [Accu-Chek Fastclix Lancet Drum] misc See Dose Instructions .ROUTE .MEDSUPPLY Qty: 50 Rx Instructions: As directed (DME) Accu-Chek SmartView Test Strip Strip See Rx Instructions .ROUTE .MEDSUPPLY Dose Instruction: As directed Rx Instructions: USE 1 TEST STRIP DAILY PRN (DME) Walking Cane Misc See Rx Instructions .Route Qty: 1 0RF Rx Instructions: As directed calcitriol 0.25 mcg capsule 0.25 mcg PO QPM gentamicin 0.1 % cream 1 applic topical UD Rx Instructions: original: APPLY A SMALL AMOUNT TO THE PD CATHETER EXIT SITE DAILY last filled 07/28 30 day supply Triphrocaps 1 mg capsule 1 cap PO QPM clopidogrel 75 mg tablet 75 mg PO QPM metoprolol succinate 25 mg Tablet Extended Release 24 Hr 25 mg PO QPM furosemide 80 mg tablet 80 mg PO BID zolpidem 10 mg tablet 10 mg PO HS potassium chloride 10 mEq tablet extended release 20 meq PO QPM insulin aspart U-100 [Novolog FlexPen U-100 Insulin] 100 unit/mL (3 mL) insulin pen 8 unit subcut AC Rx Instructions: patient only eats twice a day triamcinolone acetonide 0.1 % ointment 1 applic TOPICAL BID PRN (Reason: skin issues) Changed buspirone 7.5 mg tablet 7.5 mg PO QPM Qty: 0 0RF Discharge Orders: Discharge Order (Routine); Ordered 12/09/24 Ordered By: Marisa Crawley/Other Patient Handouts: Cellulitis Dc Admission Data Admit Date/Time: 12/07/24 22:38 Attending Provider: Tylor Moreau Admit Provider: Soha Pozo Primary Care Provider: Unruly Trujillo Other Providers: Dudley Lea; Roxy Wing Hospital Stay Data Consultations 12/07/24 21:41 ED Decision to Admit Stat 12/08/24 04:17 Consult Nephrology Routine Pending Results Patient Have Any Pending Studies at Discharge: No Discharge Instructions Given to Patient (Per Discharging Provider) Karis, You were admitted to the hospital due to a cellulitis infection. Cellulitis is an infection of the skin/soft tissues caused by bacteria. Bacteria can enter the body through broken skin; this can happen with a cut, scratch, or insect bite. You have been treated in the hospital with IV antibiotics, and will be discharged with oral antibiotics to continue taking at home. Upon discharge from the hospital: * Take clindamycin (oral antibiotic) 4 times daily x 5 more days. Take this antibiotic as directed until it is gone. Take it even if you feel better. It treats the infection and prevents it from returning. Not taking all of the medicine can make future infections harder to treat. Oral antibiotics can cause GI upset so I recommend taking your oral antibiotic with food to prevent nausea/vomiting/diarrhea. * Continue daily wound care to your right lower extremity, right foot, and right buttock. Continue to follow-up with the wound care clinic as directed. * Continue your peritoneal dialysis as directed by nephrology. * Follow the recommendations regarding your diabetic regimen as outlined by the clinical staff educator below. * Follow-up with your PCP in 1-2 weeks. Please return to the hospital if you experience any of the following: Fever of 100.5 F or higher, trouble or pain with moving the joints above or below the infected area, discharge or pus draining from the infected area, pain that gets worse in or around the infected area, redness that gets worse and around the infected area, shaking chills, worsened swelling of the infected area, persistent vomiting, lightheadedness, dizziness, passing out, shortness of breath, difficulty breathing, or chest pain. Total Time Total Time Spent Total Time Spent (In Minutes): Greater than 30 minutes spent completing this discharge process including direct patient care, medication reconciliation, documentation, review of labs and images, and coordination of care. Coding Level of Care Code 84443 INP/OBS DISCH >30 MIN Diagnoses Type 2 diabetes mellitus with obesity E11.69; E66.9 Hypercholesterolemia E78.00 Essential hypertension I10 Hypertension type: essential hypertension Edema of lower extremity R60.0 Wound infection T14.8XXA; L08.9 Dialysis patient Z99.2 Diarrhea R19.7 Diarrhea type: unspecified type
[2024-12-09 10:14] VITALS: PULSE 84
--- NOTE | 2024-12-09 13:18 | Nephrology Progress Note ---
Date of Service December 09, 2024 Assessment & Plan (1) ESRD on peritoneal dialysis: Plan: Attributed to DKD and hypertension. Maintained on PD. Outpatient Rx: NCCPD 5 x 2.5 L, 90 min dwell, 1000 ml last fill. EDW 76 kg. Weight recently ~81.5 kg. No change to prescription at discharge. Volume status is acceptable. Electrolytes normal. Maintain a renal diet. Follow up with Dr. Wing as scheduled. (2) Anemia: Plan: Maintained on Micera as outpatient --> 150 mcg provided December 06. (3) Cellulitis of right foot: Admission and Anticipated Discharge Date Admission Date: December 07, 2024 Subjective Margaux was seen and evaluated this AM prior to discharge. She tolerated PD well overnight. Net UF 1.6 L. Volume status acceptable. Review of Systems Review of Systems: All systems reviewed & are unremarkable except as noted in HPI & below Physical Exam Constitutional: well developed; no acute distress Eyes: + anicteric sclerae ENMT: external ear and nose normal, oropharynx normal Neck: normal visual inspection and trachea midline Respiratory: normal respiratory effort Cardiovascular: Rate/Rhythm: regular rate Extremities: + edema and + AV fistula Gastrointestinal (Abdomen): Percussion/Palpation: abdomen soft; abdomen nontender Musculoskeletal: Extremities: no cyanosis and no clubbing Skin: no jaundice Neurologic: Motor/Sensory: no tremor and no asterixis Psychiatric: Orientation: alert and oriented x 3 Results & Data Vital Signs (Past 12 Hours) Vital Signs Temp Pulse Pulse Pulse Resp BP Pulse Ox 12/09/24 10:11 36.7 C 71 84 17 170/89 H 97 12/09/24 08:00 78 12/09/24 08:00 12/09/24 07:48 36.7 C 71 17 12/09/24 07:48 36.7 C 71 17 170/89 H 97 12/09/24 02:57 37 C 79 20 156/82 H 98 O2 Del Method 12/09/24 10:11 12/09/24 08:00 12/09/24 08:00 Room Air 12/09/24 07:48 12/09/24 07:48 Room Air 12/09/24 02:57 Room Air Laboratory Results Laboratory Results - last 24 hr 12/08/24 12/09/24 20:23 06:51 WBC 5.57 RBC 2.61 L Hgb 8.6 L Hct 25.7 L MCV 98.5 MCH 33.0 MCHC 33.5 RDW Std Deviation 53.1 H RDW Coeff of Poornima 14.7 H Plt Count 251 MPV 10.1 Sodium 132 L Potassium 4.5 Chloride 98 Carbon Dioxide 27 Anion Gap 7 BUN 39 H Creatinine 7.11 H* D Est Cr Clr Drug Dosing 6.9 eGFR 5.55 BUN/Creatinine Ratio 5.5 L Glucose 303 H* POC Glucose 294 H Calcium 7.9 L PG Care Time/CCT Total # of Minutes Spent Total Time Spent with Patient: Total time spent is greater than 50% in coordination of care (as documented) at patient's floor/unit and/or counseling patient: Coding Level of Care Code 28030 SUB INP/OBS CARE 235MIN Diagnoses ESRD on peritoneal dialysis N18.6; Z99.2 Anemia D64.9 Anemia type: unspecified type Cellulitis of right foot L03.115 (2) Anemia Anemia type: unspecified type Qualified Code(s): D64.9 - Anemia, unspecified
== END 2024-12-09 13:12 | disposition home health service (06) | DRG 637 ==
LOC: ED 19:32 → SUATTDRO 22:38 → 2S 22:38

== ENCOUNTER 2025-02-16 16:21 | Inpatient (IN) ==
--- NOTE | 2025-02-16 18:17 | Emergency Department Note ---
Impression & Plan Cellulitis, Ambulatory dysfunction, Left leg pain, Elevated troponin, Elevated lactic acid level, Anemia, Dialysis patient ED Provider Note NAME: TRACI CABRAL AGE: 74 SEX: F : 1950 ARRIVES VIA: Walk-In INFORMANT: [Patient] ED PROVIDER(S): [Lino Diaz MD] CHIEF COMPLAINT: Leg pain HISTORY OF PRESENT ILLNESS: The patient is a 74-year-old female who presents to the ER with left lower leg pain that has been ongoing for almost a week. Patient saw her doctor's office 3 days ago and had an ultrasound done of the left leg. There was no DVT but there was a Grewal's cyst. The patient states that the pain and discomfort in the leg has progressed to the point where she can no longer walk. She has not fallen, there has been no trauma. No fever, chills, cough or congestion. Of note, the patient does do daily peritoneal dialysis. PMHx/PSHx/Social Hx: See Below PHYSICAL EXAM: GENERAL: Patient is in no acute distress. HEENT: No acute trauma, normocephalic atraumatic, mucous membranes moist, no nasal congestion. NECK: No stridor, no adenopathy, no meningismus, trachea is midline. LUNGS: Clear to auscultation bilaterally, no wheeze, no rhonchi, breath sounds equal. HEART: Without murmurs gallops or rubs, regular rate and rhythm. Heart tones are distant. ABDOMEN: Soft, nontender, no peritonitis. Peritoneal dialysis catheter noted. EXTREMITIES: No cyanosis. There is some edema of the right lower extremity. The left lower extremity has erythema and warmth from the mid tib-fib down through the ankle and toes. There is discomfort to palpate this area. No drainage. NEUROLOGIC: Oriented x 3, no acute motor or sensory deficits, no focal weakness. SKIN: No jaundice, no diaphoresis. DIFFERENTIAL DIAGNOSIS: Cellulitis, neurovascular compromise, DVT, bacteremia or sepsis, among others. EMERGENCY DEPARTMENT PROCEDURES: MEDICAL DECISION MAKING: There is a subtle leukocytosis, this would be consistent with infection. The patient is anemic, this is a chronic issue. There was a normal platelet count. No coagulopathy. Renal panel testing shows her dialysis need. No electrolyte abnormality in need of emergent correction. Lactic acid level was elevated, this could be consistent with infection or just her renal disease. No worrisome liver enzyme elevation. ECG shows a sinus rhythm, no obvious ST elevation. Cardiac enzyme testing is somewhat elevated. This troponin elevation could be secondary to cardiac injury or secondary to her renal disease. Chest x-ray did not show pneumonia or CHF. On exam, the patient had a left lower extremity cellulitis. She was not toxic or febrile. The patient received IV cefepime as antibiotic coverage. She was given IV fentanyl for pain. The patient has left lower extremity pain and redness. She has cellulitis. She does have laboratory findings that are a bit concerning. The patient requires a hospital stay and IV antibiotic therapy. I spoke with the patient and case management, the on-call hospitalist was consulted. Prior/Outside records/notes reviewed: None ECG per my interpretation: Indication was possible sepsis. The ECG shows a sinus rhythm with some PACs. The rate is 84. There is no ST elevation. There is poor R wave progression. No PVCs. QTc is 460. Continuous Cardiac Monitoring per my interpretation: An order was placed for continuous cardiac monitoring. The monitor shows a rate of 86 with normal sinus rhythm. Imaging/x-ray results per my interpretation: There is no pneumonia or CHF. Chronic Medical/Social conditions affecting care: Advanced age. Care/Management discussed with: Case management and the on-call hospitalist. Level of care consideration(s): After review of the information above and other included data: --I believe the patient requires escalation of care to admission DISPOSITION: Admission Past Med/Surg History Problem List Dialysis patient (Acute) Anemia (Acute) Elevated lactic acid level (Acute) Elevated troponin (Acute) Left leg pain (Acute) Ambulatory dysfunction (Acute) Cellulitis (Acute) Dialysis AV fistula malfunction Diabetes Diarrhea (Acute) Wound infection (Acute) Persistent disorder of initiating or maintaining sleep Edema of lower extremity (Chronic) Hyperglycemia (Acute) Dialysis patient (Acute) Anemia (Acute) Ambulatory dysfunction Venous reflux Cellulitis of right foot Volume overload ESRD on peritoneal dialysis (Acute) MRSA infection Blister of foot Chronic venous insufficiency Pressure ulcer of coccygeal region, stage 3 (Acute) Abnormal ankle brachial index (MAINE) (Acute) Edema of lower extremity Diabetic ulcer of right great toe (Acute) Osteoporosis Decubitus ulcer of sacral region, stage 2 Venous ulcer of right leg (Acute) Hypertension Anemia due to chronic kidney disease (Acute) Type 2 diabetes mellitus with obesity Hypercholesterolemia Non-proliferative diabetic retinopathy, both eyes Gout (Acute) Vitamin D deficiency Complex renal cyst Medical History Elevated troponin Hyponatremia Hypokalemia Generalized weakness Anxiety Associated dyspnea per pulmonology Fracture of hip, right, closed (04/20/24) right femoral intertrochanteric fracture with mild gapping from a fall Acute cholecystitis Heart failure with preserved ejection fraction CAD (coronary artery disease) Obesity Non-ST elevation OR (NSTEMI) Pulmonary edema Folate deficiency anemia Metabolic acidosis AV fistula right arm--per pt not currently using yet Periodontal pocket Carious teeth Sleep apnea Per 2009 polysomnography (per 02/2021 pulmonology note)- pt declined treatment or repeat study-NO DEVICE Diastolic CHF Chronic kidney disease, stage 4 (severe) Secondary hyperparathyroidism of renal origin History of DVT (deep vein thrombosis) Multiple "small" DVTs (25+ years ago, 6 years ago) Fibroids History of hypothyroidism HX-NO MEDS Sensorineural hearing loss (SNHL) of both ears Family history of colon cancer in mother Surgical History Status post-operative repair of hip fracture Hx laparoscopic cholecystectomy (01/28/24) History of coronary artery stent placement S/P arteriovenous (AV) fistula creation History of dental surgery History of surgery on arm History of colonoscopy Family History Mother Diabetes Renal cell cancer Heart disease Colorectal cancer Hypertension Brother Diabetes Renal cell cancer Heart disease Lung cancer Hypertension Gallbladder disease Father Prostate cancer Heart disease Hypertension Grandmother (Maternal) Colorectal cancer Aunt Diabetes Other Alzheimer disease No family history of adverse response to anesthesia Denies family history of Ovarian cancer Myocardial infarction Breast cancer Social History Smoking Status: Never smoker Second Hand Exposure: No; Do You Dip or Chew Tobacco: No; Hx Alcohol Use: No (Rarely- holidays) Hx Substance Use: No Preferred Language: Nepali Communication Ability: Effective Visual Impairment: Limited Hearing Ability: Hard of Hearing Oriental Medicine Practitioner Required: No Beliefs That Will Affect Care: None marital status: Single Current Living Situation: Alone Current Living Situation Comment: has home health nursing current occupational status: retired current occupation: Retired How many Children do You have: 0 Feels Safe at Home: Yes Childhood Exposure to Second-Hand Smoke: No (very little ) Diet: diabetic caffeine: Yes (drinks iced tea every day, sometimes soda ) Dental Care, Regularly: Yes Physical Activity Frequency: 1-2 Times per Week Physical Activity Frequency Comment: weight training, walking Seatbelt Use: always Sunscreen Use: Yes (most times ) Assistive Devices: Walker and Wheelchair Allergies Allergies Allergy/AdvReac Type Severity Reaction Status Date / Time insect venom Allergy Intermediate Swelling Verified 02/14/25 17:07 adhesive tape Allergy Mild Rash Verified 02/14/25 17:07 pollen extracts Allergy Mild "Seasonal Verified 02/14/25 17:07 allergies" dulaglutide [From Trulicity] AdvReac Mild Constipation, Verified 02/14/25 17:07 vomiting Home Meds Home Medications Medication Instructions Recorded Confirmed lancets (Accu-Chek Fastclix Lancet #50 ea 12/16/18 02/10/25 Drum) mecobalamin (vitamin B12) 1,000 1,000 mcg PO QPM 09/13/20 02/14/25 mcg chewable tablet (B12 Active) blood sugar diagnostic (Accu-Chek 10/15/21 02/10/25 SmartView Test Strips) cholecalciferol (vitamin D3) 62.5 62.5 mcg PO QPM 06/06/22 02/14/25 mcg (2,500 unit) capsule triamcinolone acetonide 0.1 % 1 applic topical BID PRN skin 07/28/23 02/14/25 topical ointment issues insulin degludec 100 unit/mL (3 30 unit subcut HS 03/15/24 02/14/25 mL) subcutaneous pen (Tresiba FlexTouch U-100 insulin) gentamicin 0.1 % topical cream 1 applic topical UD 08/24/24 02/14/25 vitamin B complex and vitamin C 1 cap PO QPM 08/24/24 02/14/25 no.20-folic acid 1 mg capsule (Triphrocaps) clopidogrel 75 mg tablet 75 mg PO QPM 12/07/24 02/14/25 furosemide 80 mg tablet 80 mg PO BID 12/07/24 02/14/25 insulin aspart U-100 100 unit/mL 8 unit subcut AC 12/07/24 02/14/25 (3 mL) subcutaneous pen (Novolog FlexPen U-100 Insulin aspart) potassium chloride 10 mEq 40 meq PO QPM 12/07/24 02/14/25 tablet,extended release cinacalcet 30 mg tablet (Sensipar) 30 mg PO DAILY 01/10/25 02/14/25 rosuvastatin 40 mg tablet (Crestor) 40 mg PO PM 01/27/25 02/14/25 calcitriol 0.25 mcg capsule 0.5 mcg PO QPM 02/14/25 02/14/25 Previous Rx's Medication Instructions Recorded Walking Cane #1 ea 06/30/23 pen needle, diabetic 32 gauge x #100 ea 08/24/23" (BD Nicki 2nd Gen Pen Needle) blood-glucose sensor (FreeStyle #2 ea 08/16/24 Kvng 3 Plus Sensor device) buspirone 7.5 mg tablet 7.5 mg PO QPM #0 tabs 12/09/24 zolpidem 10 mg tablet 10 mg PO HS #30 tabs 01/31/25 metoprolol succinate 25 mg 25 mg PO QPM #90 tabs 02/08/25 tablet,extended release 24 hr pregabalin 25 mg capsule (Lyrica) 25 mg PO .COMPLEX pain #90 caps 02/14/25 Results & Data (ED) Vital Signs Vital Signs - 24 hr 02/16/25 16:28 02/16/25 16:41 02/16/25 17:30 Temperature 36.2 C L Temperature Source Temporal Artery Scan Pulse Rate 123 H Pulse Rate [Apical] 86 Pulse Rate from SpO2 Sensor Respiratory Rate 18 19 Respiratory Effort / Characteristics Non-Labored Spontaneous Respiratory Depth Normal Respiratory Pattern Regular Blood Pressure 74/52 L Blood Pressure [Left Arm] 145/95 H 151/74 H Blood Pressure Mean 59 Blood Pressure Mean [Left Arm] 111 99 Blood Pressure Position [Left Arm] Semi-fowlers Pulse Oximetry 99 98 Oxygen Delivery Method Room Air Room Air Sepsis Recent Fever Within 48 Hours No Sepsis New/Unexplained Change in Mental Status No Sepsis Action Taken by Nursing No Action Required 02/16/25 19:26 02/16/25 20:54 02/16/25 20:57 Temperature Temperature Source Pulse Rate Pulse Rate [Apical] 79 86 Pulse Rate from SpO2 Sensor Respiratory Rate 17 Respiratory Effort / Characteristics Non-Labored Respiratory Depth Normal Respiratory Pattern Blood Pressure 173/113 H Blood Pressure [Left Arm] 145/95 H Blood Pressure Mean 128 Blood Pressure Mean [Left Arm] 111 Blood Pressure Position [Left Arm] Pulse Oximetry 97 100 Oxygen Delivery Method Room Air Room Air Sepsis Recent Fever Within 48 Hours Sepsis New/Unexplained Change in Mental Status Sepsis Action Taken by Nursing 02/16/25 21:00 02/16/25 21:03 02/16/25 21:12 Temperature Temperature Source Pulse Rate 86 93 H Pulse Rate [Apical] Pulse Rate from SpO2 Sensor 86 88 Respiratory Rate 13 13 Respiratory Effort / Characteristics Respiratory Depth Respiratory Pattern Blood Pressure 164/87 H 164/87 H Blood Pressure [Left Arm] Blood Pressure Mean 124 112 Blood Pressure Mean [Left Arm] Blood Pressure Position [Left Arm] Pulse Oximetry 98 100 Oxygen Delivery Method Sepsis Recent Fever Within 48 Hours Sepsis New/Unexplained Change in Mental Status Sepsis Action Taken by Nursing 02/16/25 21:21 02/16/25 21:33 02/16/25 21:37 Temperature Temperature Source Pulse Rate 97 H 89 89 Pulse Rate [Apical] Pulse Rate from SpO2 Sensor 96 H 89 Respiratory Rate 19 14 Respiratory Effort / Characteristics Respiratory Depth Respiratory Pattern Blood Pressure Blood Pressure [Left Arm] Blood Pressure Mean Blood Pressure Mean [Left Arm] Blood Pressure Position [Left Arm] Pulse Oximetry 100 100 Oxygen Delivery Method Sepsis Recent Fever Within 48 Hours Sepsis New/Unexplained Change in Mental Status Sepsis Action Taken by Nursing 02/16/25 21:48 Temperature Temperature Source Pulse Rate 91 H Pulse Rate [Apical] Pulse Rate from SpO2 Sensor 84 Respiratory Rate 15 Respiratory Effort / Characteristics Respiratory Depth Respiratory Pattern Blood Pressure Blood Pressure [Left Arm] Blood Pressure Mean Blood Pressure Mean [Left Arm] Blood Pressure Position [Left Arm] Pulse Oximetry 100 Oxygen Delivery Method Sepsis Recent Fever Within 48 Hours Sepsis New/Unexplained Change in Mental Status Sepsis Action Taken by [facility] Medications Current Medication List: was personally reviewed by me Laboratory Data Attestation: I reviewed the patient's lab results. 02/16/25 18:49 02/16/25 18:49 Lab Results 02/16/25 02/16/25 02/16/25 Range/Units 18:49 20:41 20:50 WBC 10.91 H (4.8-10.8) K/ul RBC 2.71 L (4.20-5.40) M/uL Hgb 9.2 L (12.0-16.0) g/dl Hct 27.7 L (37.0-47.0) % MCV 102.2 H (80.0-100.0) fL MCH 33.9 (25.0-34.0) pg MCHC 33.2 (32.0-36.0) g/dL RDW Std Deviation 53.3 H (36.4-46.3) fL RDW Coeff of [place] 14.4 (11.5-14.5) % Plt Count 237 (130-400) K/uL MPV 10.7 (9.4-12.4) fL Immature Gran % (Auto) 0.5 % Neut % (Auto) 74.2 % Lymph % (Auto) 15.9 % [place] % (Auto) 7.3 % Eos % (Auto) 1.6 % Baso % (Auto) 0.5 % Neut # (Auto) 8.08 H (1.40-6.50) K/uL Lymph # (Auto) 1.73 (1.20-3.40) K/uL [place] # (Auto) 0.80 H (0.11-0.59) K/uL Eos # (Auto) 0.18 (0.00-0.50) K/uL Baso # (Auto) 0.06 (0.00-0.20) K/uL Immature Gran # (Auto) 0.06 (0.01-0.20) K/uL PT 10.5 (9.0-12.0) Seconds INR 1.0 (0.9-1.1) APTT 23 (21-31) Seconds PTT Ratio 0.8 Sodium 134 L (136-145) mmol/L Potassium 4.3 (3.5-5.1) mmol/L Chloride 96 L (98-107) mmol/L Carbon Dioxide 26 (21-32) mmol/L Anion Gap 12 H (3-11) BUN 38 H (6-23) mg/dl Creatinine 7.78 H* (0.6-1.2) mg/dl Est Cr Clr Drug Dosing Not Reportable eGFR 4.98 BUN/Creatinine Ratio 4.9 L (10-20) Glucose 257 H (70-99(Fasting)) mg/dl POC Glucose 211 H (70-99) mg/dl Lactate 3.3 H* 2.6 H* (0.4-2.0) mmol/L Calcium 9.5 (8.6-10.3) mg/dl Magnesium 1.6 L (1.7-2.4) mg/dl Total Bilirubin 0.5 (0.2-1.0) mg/dl Direct Bilirubin 0.0 (0-0.2) mg/dl AST 38 (13-39) U/L ALT 25 (7-52) U/L Alkaline Phosphatase 92 (34-104) U/L Troponin I High Sens 193.0 H* 163.3 H* (0-14) pg/ml Total Protein 5.4 L (6.0-8.3) gm/dl Albumin 2.3 L (3.4-5.0) gm/dl Procalcitonin 1.14 H (0-0.5) ng/ml Administered Medications Discontinued Medications Fentanyl Citrate (Fentanyl Citrate Pf 100 Mcg/2 Ml Vial) 50 mcg IV NOW STA Stop: 02/16/25 18:11 Last Admin: 02/16/25 18:57 Dose: 50 mcg Documented By: YARITZA Cefepime HCl (Maxipime 2000mg) 2,000 mg in 20 mls @ 5 mls/min IV NOW STA; Protocol Stop: 02/16/25 18:13 Last Admin: 02/16/25 18:57 Dose: 5 mls/min Documented By: YARITZA Imaging Data Radiologist's Impression: Chest X-Ray 02/16/25 18:11 Chest radiograph, one view History: Chest pain Comparison: None Findings: Single AP view of the chest performed. No focal consolidation or pleural effusion. No pneumothorax. The cardiomediastinal silhouette is within normal limits. Normal pulmonary vascularity. No evidence for lymphadenopathy. No visualized bony or soft tissue abnormality. Impression: Normal chest radiograph Electronically signed by Jeyson Olmsetad 02-16-2025 7:16 PM Discharge Plan Visit Data Chief Complaint: Knee Injury/Pain Stated Complaint: LT KNEE PAIN AND BELOW PAST 3-4 DAYS ED Provider: Lino Diaz Discharge Problem: Cellulitis, Ambulatory dysfunction, Left leg pain, Elevated troponin, Elevated lactic acid level, Anemia, Dialysis patient Patient Disposition: Admitted As Inpatient Condition: Fair Discharge Instructions Interventions: ED Discharge Assessment Last Done: 02/16/25 23:21 Discharge Problem: Cellulitis Qualifiers: Site of cellulitis: extremity Site of cellulitis of extremity: lower extremity Laterality: left Qualified Code(s): L03.116 - Cellulitis of left lower limb Anemia Qualifiers: Anemia type: unspecified type Qualified Code(s): D64.9 - Anemia, unspecified
[2025-02-16] MEDS: CEFEPIME 2000MG 2,000 MG/20 ML SYR IV STA (18:57)
[2025-02-16 19:07] LABS: Hematocrit (blood only) 27.7 % (37.0-47.0); Hemoglobin 9.2 g/dl (12.0-16.0); Immature Granulocytes # (auto) 0.06 K/uL (0.01-0.20); Immature Granulocytes % (auto) 0.5 %; Mean Corpuscular Hemoglobin 33.9 pg (25.0-34.0); Mean Corpuscular Volume 102.2 fL (80.0-100.0); Platelet Count 237 K/uL (130-400); RDW Standard Deviation 53.3 fL (36.4-46.3); Red Blood Count 2.71 M/uL (4.20-5.40); White Blood Count 10.91 K/ul (4.8-10.8)
--- NOTE | 2025-02-16 19:16 | XRay Report ---
Chest radiograph, one view History: Chest pain Comparison: None Findings: Single AP view of the chest performed. No focal consolidation or pleural effusion. No pneumothorax. The cardiomediastinal silhouette is within normal limits. Normal pulmonary vascularity. No evidence for lymphadenopathy. No visualized bony or soft tissue abnormality. Impression: Normal chest radiograph Electronically signed by Jeyson Olmstead 02-16-2025 7:16 PM
[2025-02-16 19:28] LABS: Alanine Aminotransferase 25 U/L (7-52); Albumin Level 2.3 gm/dl (3.4-5.0); Alkaline Phosphatase 92 U/L (34-104); Anion Gap 12 (3-11); Bilirubin,Total 0.5 mg/dl (0.2-1.0); Blood Urea Nitrogen 38 mg/dl (6-23); Calcium 9.5 mg/dl (8.6-10.3); Carbon Dioxide 26 mmol/L (21-32); Chloride 96 mmol/L (98-107); Glucose 257 mg/dl (70-99(Fasting)); Magnesium 1.6 mg/dl (1.7-2.4); Potassium 4.3 mmol/L (3.5-5.1); Sodium 134 mmol/L (136-145); Total Protein 5.4 gm/dl (6.0-8.3)
[2025-02-16 19:34] LABS: INR 1.0 (0.9-1.1); Partial Thromboplastin Time 23 Seconds (21-31); Prothrombin Time 10.5 Seconds (9.0-12.0)
--- NOTE | 2025-02-16 22:02 | History & Physical Report ---
Date of Service February 16, 2025 Assessment & Plan (1) Cellulitis of left lower extremity from knee to ankle: (2) MRSA infection: (3) ESRD on peritoneal dialysis: (4) Type 2 diabetes mellitus with obesity: Plan The patient is a 74-year-old female with a past medical history including ESRD on peritoneal dialysis, dialysis AV fistula malfunction, diabetes mellitus, anemia, ambulatory dysfunction, history of MRSA infection, chronic venous insufficiency, history of pressure ulcers in buttock and coccygeal region, history of venous ulcers of bilateral lower extremities, gout, vitamin D deficiency, and hyperlipidemia. She had been having issues with left lower extremity swelling, erythema and worsening pain of the left lower extremity including ankle. She had undergone a venous Doppler of left lower extremity, ordered by her doctor after a visit to their office on 02/10/2025, which was negative for DVT, but did show superficial venous thrombus. She has also been following with orthopedic surgery for a left Grewal's cyst. She presented to the emergency department today, after having the pain in her left leg progressing to the point that she can no longer walk. She has not fallen, but has almost fallen a number of occasions. In the emergency department this evening, she was given fentanyl 50 mcg IV with only minimal improvement in pain, and was started on cefepime 2 g IV. Chest x-ray was ordered, and it was negative. The [facility]. Cellulitis of left lower extremity/presumptive gout flare left ankle- Admitted on cefepime 2 g IV every 12 hours, and daptomycin IV 550 mg every 24 hours Add uric acid level to labs Renally adjust colchicine to 0.3 mg p.o. daily Acetaminophen 650 mg by mouth every 6 hours as needed for mild pain or fever Tramadol 50 mg by mouth every 4 hours as needed for moderate pain Dilaudid 0.25 mg IV every 3 hours as needed for severe pain ESRD on peritoneal dialysis/failure of AV fistula/hypertension- Consults to nephrology Dr. Bragg, who will start PD in the a.m. Continue usual medications of cholecalciferol, Cinacalcet, Triphrocaps Serial CBC with differential, chemistry profile and magnesium levels Continue metoprolol succinate, furosemide, potassium chloride, Plavix, Hydralazine 10 mg IV every 4 hours as needed for systolic blood pressure greater than 160 Diabetes mellitus- Change insulin degludec from 30 units subcu at bedtime to glargine 20 units subcu at bedtime Placed on Accu-Cheks with NovoLog SSI Check hemoglobin A1c Depression/anxiety/insomnia- Continue zolpidem at bedtime, buspirone Hyperlipidemia- Hold rosuvastatin while on daptomycin Hypomagnesemia- Magnesium 1.6 on admission Allowed to be corrected through ED Anemia of chronic kidney disease- Hemoglobin 9.2 is in her usual range Lactic acidosis- 3.3 on admission Follow-up pending Left lower extremity superficial venous thrombosis- As noted on venous Doppler of 02/10/2025, with no DVT noted Not a candidate for anti-inflammatories unless we use steroids If becomes bothersome, could use local treatment such as heat History of Present Illness Chief Complaint: The patient presented to the emergency department with worsening left lower extremity redness and pain, and significantly decreased ability to walk. Primary Care Provider: Unruly Trujillo DO The patient is a 74-year-old female with a past medical history including ESRD on peritoneal dialysis, dialysis AV fistula malfunction, diabetes mellitus, anemia, ambulatory dysfunction, history of MRSA infection, chronic venous insufficiency, history of pressure ulcers in buttock and coccygeal region, history of venous ulcers of bilateral lower extremities, gout, vitamin D deficiency, and hyperlipidemia. She had been having issues with left lower extremity swelling, erythema and worsening pain of the left lower extremity including ankle. She had undergone a venous Doppler of left lower extremity, ordered by her doctor after a visit to their office on 02/10/2025, which was negative for DVT, but did show superficial venous thrombus. She has also been following with orthopedic surgery for a left Grewal's cyst. She presented to the emergency department today, after having the pain in her left leg progressing to the point that she can no longer walk. She has not fallen, but has almost fallen a number of occasions. In the emergency department this evening, she was given fentanyl 50 mcg IV with only minimal improvement in pain, and was started on cefepime 2 g IV. Chest x-ray was ordered, and it was negative. The patient was then [facility]. Allergies Allergy/AdvReac Type Severity Reaction Status Date / Time insect venom Allergy Intermediate Swelling Verified 02/14/25 17:07 adhesive tape Allergy Mild Rash Verified 02/14/25 17:07 pollen extracts Allergy Mild "Seasonal Verified 02/14/25 17:07 allergies" dulaglutide [From [facility]] AdvReac Mild Constipation, Verified 02/14/25 17:07 vomiting Home Medications Medication Instructions Recorded Confirmed Type lancets (Accu-Chek Fastclix Lancet #50 ea 12/16/18 02/10/25 History Drum) mecobalamin (vitamin B12) 1,000 1,000 mcg PO QPM 09/13/20 02/14/25 History mcg chewable tablet (B12 Active) blood sugar diagnostic (Accu-Chek 10/15/21 02/10/25 History SmartView Test Strips) cholecalciferol (vitamin D3) 62.5 62.5 mcg PO QPM 06/06/22 02/14/25 History mcg (2,500 unit) capsule Walking Cane #1 ea 06/30/23 02/10/25 Rx triamcinolone acetonide 0.1 % 1 applic topical BID PRN skin 07/28/23 02/14/25 History topical ointment issues pen needle, diabetic 32 gauge x #100 ea 08/24/23 02/10/25 Rx 5/32" (BD Nicki 2nd Gen Pen Needle) insulin degludec 100 unit/mL (3 30 unit subcut HS 03/15/24 02/14/25 History mL) subcutaneous pen (Tresiba FlexTouch U-100 insulin) blood-glucose sensor (FreeStyle #2 ea 08/16/24 02/10/25 Rx Kvng 3 Plus Sensor device) gentamicin 0.1 % topical cream 1 applic topical UD 08/24/24 02/14/25 History vitamin B complex and vitamin C 1 cap PO QPM 08/24/24 02/14/25 History no.20-folic acid 1 mg capsule (Triphrocaps) clopidogrel 75 mg tablet 75 mg PO QPM 12/07/24 02/14/25 History furosemide 80 mg tablet 80 mg PO BID 12/07/24 02/14/25 History insulin aspart U-100 100 unit/mL 8 unit subcut AC 12/07/24 02/14/25 History (3 mL) subcutaneous pen (Novolog FlexPen U-100 Insulin aspart) potassium chloride 10 mEq 40 meq PO QPM 12/07/24 02/14/25 History tablet,extended release buspirone 7.5 mg tablet 7.5 mg PO QPM #0 tabs 12/09/24 02/14/25 Rx cinacalcet 30 mg tablet (Sensipar) 30 mg PO DAILY 01/10/25 02/14/25 History rosuvastatin 40 mg tablet (Crestor) 40 mg PO PM 01/27/25 02/14/25 History zolpidem 10 mg tablet 10 mg PO HS #30 tabs 01/31/25 02/14/25 Rx metoprolol succinate 25 mg 25 mg PO QPM #90 tabs 02/08/25 02/14/25 Rx tablet,extended release 24 hr calcitriol 0.25 mcg capsule 0.5 mcg PO QPM 02/14/25 02/14/25 History pregabalin 25 mg capsule (Lyrica) 25 mg PO .COMPLEX pain #90 caps 02/14/25 02/14/25 Rx Past Med/Surg History Problem List (Updated 02/17/25 @ 04:19 by Dudley Lea MD) Cellulitis of left lower extremity from knee to ankle Dialysis patient (Acute) Anemia (Acute) Elevated lactic acid level (Acute) Elevated troponin (Acute) Left leg pain (Acute) Ambulatory dysfunction (Acute) Cellulitis (Acute) Dialysis AV fistula malfunction Diabetes Diarrhea (Acute) Wound infection (Acute) Persistent disorder of initiating or maintaining sleep Edema of lower extremity (Chronic) Hyperglycemia (Acute) Dialysis patient (Acute) Anemia (Acute) Ambulatory dysfunction Venous reflux Cellulitis of right foot Volume overload ESRD on peritoneal dialysis (Acute) MRSA infection Blister of foot Chronic venous insufficiency Pressure ulcer of coccygeal region, stage 3 (Acute) Abnormal ankle brachial index (MAINE) (Acute) Edema of lower extremity Diabetic ulcer of right great toe (Acute) Osteoporosis Decubitus ulcer of sacral region, stage 2 Venous ulcer of right leg (Acute) Hypertension Anemia due to chronic kidney disease (Acute) Type 2 diabetes mellitus with obesity Hypercholesterolemia Non-proliferative diabetic retinopathy, both eyes Gout (Acute) Vitamin D deficiency Complex renal cyst Medical History Elevated troponin Hyponatremia Hypokalemia Generalized weakness Anxiety Associated dyspnea per pulmonology Fracture of hip, right, closed (04/20/24) right femoral intertrochanteric fracture with mild gapping from a fall Acute cholecystitis Heart failure with preserved ejection fraction CAD (coronary artery disease) Obesity Non-ST elevation VT (NSTEMI) Pulmonary edema Folate deficiency anemia Metabolic acidosis AV fistula right arm--per pt not currently using yet Periodontal pocket Carious teeth Sleep apnea Per 2009 polysomnography (per 02/2021 pulmonology note)- pt declined treatment or repeat study-NO DEVICE Diastolic CHF Chronic kidney disease, stage 4 (severe) Secondary hyperparathyroidism of renal origin History of DVT (deep vein thrombosis) Multiple "small" DVTs (25+ years ago, 6 years ago) Fibroids History of hypothyroidism HX-NO MEDS Sensorineural hearing loss (SNHL) of both ears Family history of colon cancer in mother Surgical History Status post-operative repair of hip fracture Hx laparoscopic cholecystectomy (01/28/24) History of coronary artery stent placement S/P arteriovenous (AV) fistula creation History of dental surgery History of surgery on arm History of colonoscopy Family History Mother Diabetes Renal cell cancer Heart disease Colorectal cancer Hypertension Brother Diabetes Renal cell cancer Heart disease Lung cancer Hypertension Gallbladder disease Father Prostate cancer Heart disease Hypertension Grandmother (Maternal) Colorectal cancer Aunt Diabetes Other Alzheimer disease No family history of adverse response to anesthesia Denies family history of Ovarian cancer Myocardial infarction Breast cancer Social History Smoking Status: Never smoker Second Hand Exposure: No; Do You Dip or Chew Tobacco: No; Hx Alcohol Use: No Hx Substance Use: No Preferred Language: Taiwanese Communication Ability: Effective Visual Impairment: Limited Hearing Ability: Hard of Hearing Nursing Technician Required: No Beliefs That Will Affect Care: None marital status: Single Current Living Situation: Alone Current Living Situation Comment: has home health nursing current occupational status: retired current occupation: Retired How many Children do You have: 0 Other Information That Helps Us Care for You: No Feels Safe at Home: Yes Safety Concerns: Feels Safe At This Time Childhood Exposure to Second-Hand Smoke: No (very little ) Diet: diabetic caffeine: Yes (drinks iced tea every day, sometimes soda ) Dental Care, Regularly: Yes Physical Activity Frequency: 1-2 Times per Week Physical Activity Frequency Comment: weight training, walking Seatbelt Use: always Sunscreen Use: Yes (most times ) Assistive Devices: Glasses and Wheelchair Review of Systems Review of Systems: The patient denies chest pain, palpitations, shortness of breath, dyspnea on exertion, cough, sore throat, fevers, chills, sweats, nausea, vomiting, diarrhea , constipation, abdominal pain, pelvic pain, blood in urine or stool, dysuria, urinary frequency or urgency, lightheadedness, dizziness, headache, memory loss, loss of consciousness, focal or generalized weakness, numbness or tingling in arms or right leg, generalized arthralgias or myalgias, back or neck pain, or night sweats. The review of systems is otherwise negative other than for that already noted above, and at least 10 systems have been reviewed. Physical Exam Physical Exam: The patient is awake, alert and oriented 3, well developed and well nourished, normocephalic and atraumatic, lying in bed and in mild to moderate acute distress secondary to left leg pain HEENT--PERRL, EOMI, mucous membranes and oropharynx dry. Neck--supple. No JVD. No bruits. Thyroid normal, trachea midline, no adenopathy. Heart--normal S1 and S2. No murmurs, rubs or gallops. Lungs--clear bilaterally, no respiratory distress, no accessory muscle use. Abdomen--normal bowel sounds and soft. Nontender. Nondistended, no hernias or masses, no organomegaly. Extremities--1+ bilateral pretibial edema, left worse than right, left lower extremity with mild to moderate erythema. Left ankle with moderately severe pain to light touch. Dermatologic--as above Neurologic--cranial nerves II through XII grossly intact. Rheumatologic--normal range of motion except for left ankle Psychiatric--normal affect. Results & Data Results & Data Vital Signs (Past 12 Hours) Vital Signs Temp Pulse Pulse Resp BP BP Pulse Ox 02/16/25 21:48 91 H 15 100 02/16/25 21:37 89 02/16/25 21:33 89 14 100 02/16/25 21:21 97 H 19 100 02/16/25 21:12 93 H 13 164/87 H 100 02/16/25 21:03 86 13 98 02/16/25 21:00 164/87 H 02/16/25 20:57 86 100 02/16/25 20:54 173/113 H 02/16/25 19:26 79 17 145/95 H 97 02/16/25 17:30 86 19 151/74 H 98 02/16/25 16:41 145/95 H 02/16/25 16:28 36.2 C L 123 H 18 74/52 L 99 O2 Del Method 02/16/25 21:48 02/16/25 21:37 02/16/25 21:33 02/16/25 21:21 02/16/25 21:12 02/16/25 21:03 02/16/25 21:00 02/16/25 20:57 Room Air 02/16/25 20:54 02/16/25 19:26 Room Air 02/16/25 17:30 Room Air 02/16/25 16:41 02/16/25 16:28 Room Air Laboratory Results Laboratory Results WBC 10.91 K/ul (4.8-10.8) H 02/16/25 18:49 RBC 2.71 M/uL (4.20-5.40) L 02/16/25 18:49 Hgb 9.2 g/dl (12.0-16.0) L 02/16/25 18:49 Hct 27.7 % (37.0-47.0) L 02/16/25 18:49 MCV 102.2 fL (80.0-100.0) H 02/16/25 18:49 MCH 33.9 pg (25.0-34.0) 02/16/25 18:49 MCHC 33.2 g/dL (32.0-36.0) 02/16/25 18:49 RDW Std Deviation 53.3 fL (36.4-46.3) H 02/16/25 18:49 RDW Coeff of [place] 14.4 % (11.5-14.5) 02/16/25 18:49 Plt Count 237 K/uL (130-400) 02/16/25 18:49 MPV 10.7 fL (9.4-12.4) 02/16/25 18:49 Immature Gran % (Auto) 0.5 % 02/16/25 18:49 Neut % (Auto) 74.2 % 02/16/25 18:49 Lymph % (Auto) 15.9 % 02/16/25 18:49 Williams % (Auto) 7.3 % 02/16/25 18:49 Eos % (Auto) 1.6 % 02/16/25 18:49 Baso % (Auto) 0.5 % 02/16/25 18:49 Neut # (Auto) 8.08 K/uL (1.40-6.50) H 02/16/25 18:49 Lymph # (Auto) 1.73 K/uL (1.20-3.40) 02/16/25 18:49 Williams # (Auto) 0.80 K/uL (0.11-0.59) H 02/16/25 18:49 Eos # (Auto) 0.18 K/uL (0.00-0.50) 02/16/25 18:49 Baso # (Auto) 0.06 K/uL (0.00-0.20) 02/16/25 18:49 Immature Gran # (Auto) 0.06 K/uL (0.01-0.20) 02/16/25 18:49 PT 10.5 Seconds (9.0-12.0) 02/16/25 18:49 INR 1.0 (0.9-1.1) 02/16/25 18:49 APTT 23 Seconds (21-31) 02/16/25 18:49 PTT Ratio 0.8 02/16/25 18:49 Sodium 134 mmol/L (136-145) L 02/16/25 18:49 Potassium 4.3 mmol/L (3.5-5.1) 02/16/25 18:49 Chloride 96 mmol/L (98-107) L 02/16/25 18:49 Carbon Dioxide 26 mmol/L (21-32) 02/16/25 18:49 Anion Gap 12 (3-11) H 02/16/25 18:49 BUN 38 mg/dl (6-23) H 02/16/25 18:49 Creatinine 7.78 mg/dl (0.6-1.2) H* 02/16/25 18:49 Est Cr Clr Drug Dosing Not Reportable 02/16/25 18:49 eGFR 4.98 02/16/25 18:49 BUN/Creatinine Ratio 4.9 (10-20) L 02/16/25 18:49 Glucose 257 mg/dl (70-99(Fasting)) H 02/16/25 18:49 POC Glucose 211 mg/dl (70-99) H 02/16/25 20:41 Lactate 2.6 mmol/L (0.4-2.0) H* 02/16/25 20:50 Calcium 9.5 mg/dl (8.6-10.3) 02/16/25 18:49 Magnesium 1.6 mg/dl (1.7-2.4) L 02/16/25 18:49 Total Bilirubin 0.5 mg/dl (0.2-1.0) 02/16/25 18:49 Direct Bilirubin 0.0 mg/dl (0-0.2) 02/16/25 18:49 AST 38 U/L (13-39) 02/16/25 18:49 ALT 25 U/L (7-52) 02/16/25 18:49 Alkaline Phosphatase 92 U/L (34-104) 02/16/25 18:49 Troponin I High Sens 163.3 pg/ml (0-14) H* 02/16/25 20:50 Total Protein 5.4 gm/dl (6.0-8.3) L 02/16/25 18:49 Albumin 2.3 gm/dl (3.4-5.0) L 02/16/25 18:49 Procalcitonin 1.14 ng/ml (0-0.5) H 02/16/25 18:49 Impressions Chest X-Ray 02/16/25 18:11 Chest radiograph, one view History: Chest pain Comparison: None Findings: Single AP view of the chest performed. No focal consolidation or pleural effusion. No pneumothorax. The cardiomediastinal silhouette is within normal limits. Normal pulmonary vascularity. No evidence for lymphadenopathy. No visualized bony or soft tissue abnormality. Impression: Normal chest radiograph Electronically signed by Jeyson Olmstead 02-16-2025 7:16 PM Code Status & VTE Plan Code Status Full code VTE Prophylaxis Plan VTE Prophylaxis will be ordered: Yes PG Care Time/CCT Total # of Minutes Spent Total Time Spent with Patient: Total time spent is greater than 50% in coordination of care (as documented) at patient's floor/unit and/or counseling patient: Coding Level of Care Code 05209 INT INP/OBS CARE MIN Diagnoses Cellulitis of left lower extremity from knee to ankle L03.116 MRSA infection A49.02 ESRD on peritoneal dialysis N18.6; Z99.2 Type 2 diabetes mellitus with obesity E11.69; E66.9
[2025-02-16] MEDS ORDERED: GLUCOSE 40% GEL 15 GM TUBE PO PRN (23:20)
[2025-02-16] MEDS ORDERED: GLUCAGON FOR INJ 1 MG VIAL SQ PRN (23:20)
[2025-02-16] MEDS ORDERED: DEXTROSE 50% 50 ML SYRINGE IV PRN (23:20)
[2025-02-16] MEDS ORDERED: CARBOHYDRATES FOR HYPOGLYCEMIA PO PRN (23:20)
[2025-02-16] MEDS ORDERED: GLUCOSE 10 TAB/TUBE PO PRN (23:20)
[2025-02-17] MEDS: MoRPHine SULFATE 4 MG/ML 1 ML CARP\\VIAL IV PRN
[2025-02-17] MEDS: HYDROmorphone INJ 0.5 MG/0.5 ML SYR IV PRN (01:03)
[2025-02-17] MEDS: ZOLPIDEM TARTRATE 5 MG TAB PO STA (03:09)
[2025-02-17] MEDS: DAPTOmycin 500 MG in SYRINGE 0 ML IV SCH (05:35)
[2025-02-17 08:18] LABS: Hematocrit (blood only) 27.7 % (37.0-47.0); Hemoglobin 9.1 g/dl (12.0-16.0); Immature Granulocytes # (auto) 0.03 K/uL (0.01-0.20); Immature Granulocytes % (auto) 0.3 %; Mean Corpuscular Hemoglobin 33.7 pg (25.0-34.0); Mean Corpuscular Volume 102.6 fL (80.0-100.0); Platelet Count 202 K/uL (130-400); RDW Standard Deviation 53.1 fL (36.4-46.3); Red Blood Count 2.70 M/uL (4.20-5.40); White Blood Count 8.68 K/ul (4.8-10.8)
--- NOTE | 2025-02-17 08:25 | XRay Report ---
EXAM: XR ankle LT 2V CLINICAL HISTORY: Worsening pain/differential includes gout. TECHNIQUE: X-ray images of the left ankle were obtained in anteroposterior (AP), and lateral projections. COMPARISON: Prior ultrasound venous Doppler of the left lower limb dated 09/23/2024 was reviewed. FINDINGS: Bone Structure: There is significantly reduced bone mineralization. Degenerative osteoarthritic changes are noted in the visualized bones. Evidence of a calcaneal spur is present. There is no evidence of fracture or dislocation. No osseous lesions or abnormalities are identified. Soft Tissues: Vascular calcifications are noted. Diffuse soft tissue swelling is noted, with linear dense calcific foci. IMPRESSION: 1. There is reduced bone mineralization with degenerative changes. 2. Diffuse soft tissue swelling is noted, with linear dense calcific foci and advanced vascular calcifications. Needs clinical correlation. 3. There is no gross fracture or dislocation. 4. There is a plantar calcaneal spur. Disclaimer: A subtle bone abnormality or fracture may not be readily apparent on X-rays, thus clinical correlation and further imaging including follow-up CT, MRI, or follow-up X-rays are advised as needed. Electronically signed by Abran Adams 02-17-2025 08:24 AM
[2025-02-17] MEDS: CINACALCET HCL 30 MG TAB PO SCH (08:27)
[2025-02-17] MEDS: COLCHICINE 0.6 MG TAB PO SCH (08:27)
[2025-02-17] MEDS: INSULIN ASPART PER UNIT CHARGE SC SCH (08:28)
[2025-02-17] MEDS: FUROSEMIDE 80 MG TAB PO SCH (08:28)
[2025-02-17] MEDS: GENTAMICIN SULFATE 0.1% CR 15 GM TUBE EXT SCH (08:28)
[2025-02-17] MEDS: INFLUENZA VACC TS2025-26(65y+)/PF (IIV3) 0.5mL Syr IM ONE (08:29)
[2025-02-17] MEDS: HEPARIN SOD 5,000 UNIT/0.5 ML VIAL SQ SCH (08:29)
[2025-02-17 08:35] LABS: Alanine Aminotransferase 19.0 U/L (7-52); Albumin Globulin Ratio 0.7 (0.9-2); Albumin Level 2.0 gm/dl (3.4-5.0); Alkaline Phosphatase 75.0 U/L (34-104); Anion Gap 10.0 (3-11); Bilirubin,Total 0.5 mg/dl (0.2-1.0); Blood Urea Nitrogen 45.0 mg/dl (6-23); Calcium 8.7 mg/dl (8.6-10.3); Carbon Dioxide 25.0 mmol/L (21-32); Chloride 98.0 mmol/L (98-107); Creatinine Clr Calc Pharmacy 5.8 ml/min; Globulin 2.9 gm/dl (2.5-4.0); Glucose 119.0 mg/dl (70-99(Fasting)); Magnesium 1.6 mg/dl (1.7-2.4); Potassium 4.6 mmol/L (3.5-5.1); Sodium 133.0 mmol/L (136-145); Total Protein 4.9 gm/dl (6.0-8.3); Uric Acid 6.6 mg/dl (2.6-7.2)
--- NOTE | 2025-02-17 10:19 | Nephrology Consultation ---
Date of Consultation February 17, 2025 Assessment & Plan (1) ESRD on peritoneal dialysis: * Attributed to DKD and hypertension. Maintained on PD. * Outpatient Rx: NCCPD 5 x 2.5 L, 90 min dwell, 1000 ml last fill. EDW 78 kg * Volume status is acceptable. Electrolytes normal. * Plan to continue with NCCPD with treatment tonight. * Bumex should be continued her home Rx. * Maintain a renal diet and document I/O's * Sensipar can be held while inpatient. Calcitriol continued per home Rx. * Daily BMP (2) Anemia: * Hgb 9.1 * Will order iron studies * Will provide epogen 10,000 units SQ x1 today (3) Cellulitis: * On cefepime and daptomycin * Recommend changing cefepime to zosyn to avoid neurotoxicity in the setting of ESKD * Monitor CK while on daptomycin History of Present Illness Reason for Consultation: ESKD-PD Attending Physician: Markel Looney DO History of Present Illness Ms. Guthrie is a 74 year old white female who is seen at the request of the [facility] hospitalist service to provide NCCPD therapy and assist w/ medical management. Information for the HPI is obtained from direct patient interview and review of the EMR. HPI is summarized as follows: Ms. Guthrie has ESKD due to DKD. She is on NCCPD therapy under the care of Dr. Wing (5 exchages/night, 2500 fill volume, 2.5% delflex, fill 10/dwell 90/drain 20 with LBO 1L. No daytime exchange. EDW 78kg). Ms. Guthrie has chronic lower extremity venous insufficiency. She underwent venous ablation 11/23/24. She presented to the EMD last evening w/ LLE pain/cellulitis. Hospitalist service has admitted her for IV cefepime and daptomycin therapy. PMH: ESKD, AODM, ASCVD s/p LAD stent 06/20, HTN PSH: R BC AVF 04/16 (Moris) s/p transposition 06/18, PD catheter placed 08/18 (Jacob), cholecystectomy 02/17 Allergies Allergy/AdvReac Type Severity Reaction Status Date / Time insect venom Allergy Intermediate Swelling Verified 02/14/25 17:07 adhesive tape Allergy Mild Rash Verified 02/14/25 17:07 pollen extracts Allergy Mild "Seasonal Verified 02/14/25 17:07 allergies" dulaglutide [From [facility]] AdvReac Mild Constipation, Verified 02/14/25 17:07 vomiting Home Medications Medication Instructions Recorded Confirmed Type lancets (Accu-Chek Fastclix Lancet #50 ea 12/16/18 02/10/25 History Drum) mecobalamin (vitamin B12) 1,000 1,000 mcg PO QPM 09/13/20 02/14/25 History mcg chewable tablet (B12 Active) blood sugar diagnostic (Accu-Chek 10/15/21 02/10/25 History SmartView Test Strips) cholecalciferol (vitamin D3) 62.5 62.5 mcg PO QPM 06/06/22 02/14/25 History mcg (2,500 unit) capsule Walking Cane #1 ea 06/30/23 02/10/25 Rx triamcinolone acetonide 0.1 % 1 applic topical BID PRN skin 07/28/23 02/14/25 History topical ointment issues pen needle, diabetic 32 gauge x #100 ea 08/24/23 02/10/25 Rx /32" (BD Nicki 2nd Gen Pen Needle) insulin degludec 100 unit/mL (3 30 unit subcut HS 03/15/24 02/14/25 History mL) subcutaneous pen (Tresiba FlexTouch U-100 insulin) blood-glucose sensor (FreeStyle #2 ea 08/16/24 02/10/25 Rx Kvng 3 Plus Sensor device) gentamicin 0.1 % topical cream 1 applic topical UD 08/24/24 02/14/25 History vitamin B complex and vitamin C 1 cap PO QPM 08/24/24 02/14/25 History no.20-folic acid 1 mg capsule (Triphrocaps) clopidogrel 75 mg tablet 75 mg PO QPM 12/07/24 02/14/25 History furosemide 80 mg tablet 80 mg PO BID 12/07/24 02/14/25 History insulin aspart U-100 100 unit/mL 8 unit subcut AC 12/07/24 02/14/25 History (3 mL) subcutaneous pen (Novolog FlexPen U-100 Insulin aspart) potassium chloride 10 mEq 40 meq PO QPM 12/07/24 02/14/25 History tablet,extended release buspirone 7.5 mg tablet 7.5 mg PO QPM #0 tabs 12/09/24 02/14/25 Rx cinacalcet 30 mg tablet (Sensipar) 30 mg PO DAILY 01/10/25 02/14/25 History rosuvastatin 40 mg tablet (Crestor) 40 mg PO PM 01/27/25 02/14/25 History zolpidem 10 mg tablet 10 mg PO HS #30 tabs 01/31/25 02/14/25 Rx metoprolol succinate 25 mg 25 mg PO QPM #90 tabs 02/08/25 02/14/25 Rx tablet,extended release 24 hr calcitriol 0.25 mcg capsule 0.5 mcg PO QPM 02/14/25 02/14/25 History pregabalin 25 mg capsule (Lyrica) 25 mg PO .COMPLEX pain #90 caps 02/14/25 02/14/25 Rx Patient History Medical History Elevated troponin Hyponatremia Hypokalemia Generalized weakness Anxiety Associated dyspnea per pulmonology Fracture of hip, right, closed (04/20/24) right femoral intertrochanteric fracture with mild gapping from a fall Acute cholecystitis Heart failure with preserved ejection fraction CAD (coronary artery disease) Obesity Non-ST elevation GA (NSTEMI) Pulmonary edema Folate deficiency anemia Metabolic acidosis AV fistula right arm--per pt not currently using yet Periodontal pocket Carious teeth Sleep apnea Per 2009 polysomnography (per 02/2021 pulmonology note)- pt declined treatment or repeat study-NO DEVICE Diastolic CHF Chronic kidney disease, stage 4 (severe) Secondary hyperparathyroidism of renal origin History of DVT (deep vein thrombosis) Multiple "small" DVTs (25+ years ago, 6 years ago) Fibroids History of hypothyroidism HX-NO MEDS Sensorineural hearing loss (SNHL) of both ears Family history of colon cancer in mother Surgical History Status post-operative repair of hip fracture Hx laparoscopic cholecystectomy (01/28/24) Robotic Laparoscopic Cholecystectomy(Not Applicable) - Oseas Madrigal DO, FACS History of coronary artery stent placement S/P arteriovenous (AV) fistula creation RIGHT arm 03/27/21 @ [facility] Dr. Subramanian History of dental surgery History of surgery on arm Right Arm basilic vein transposition 2nd stage @ [facility] Dr. Subramanian 06/10/21 History of colonoscopy Family History Mother Diabetes Renal cell cancer Heart disease Colorectal cancer Hypertension Brother Diabetes Renal cell cancer Heart disease Lung cancer Hypertension Gallbladder disease Father Prostate cancer Heart disease Hypertension Grandmother (Maternal) Colorectal cancer Aunt Diabetes Other Alzheimer disease No family history of adverse response to anesthesia Denies family history of Ovarian cancer Myocardial infarction Breast cancer Social History Smoking Status: Never smoker Second Hand Exposure: No; Do You Dip or Chew Tobacco: No; Hx Alcohol Use: No Hx Substance Use: No Preferred Language: Urdu Communication Ability: Effective Visual Impairment: Limited Hearing Ability: Hard of Hearing Clay Grinder Required: No Beliefs That Will Affect Care: None marital status: Single Current Living Situation: Alone Current Living Situation Comment: has home health nursing current occupational status: retired current occupation: Retired How many Children do You have: 0 Other Information That Helps Us Care for You: No Feels Safe at Home: Yes Safety Concerns: Feels Safe At This Time Childhood Exposure to Second-Hand Smoke: No (very little ) Diet: diabetic caffeine: Yes (drinks iced tea every day, sometimes soda ) Dental Care, Regularly: Yes Physical Activity Frequency: 1-2 Times per Week Physical Activity Frequency Comment: weight training, walking Seatbelt Use: always Sunscreen Use: Yes (most times ) Assistive Devices: Glasses and Wheelchair Review of Systems Constitutional: no fever Eyes: no problem reported Ear, Nose, Mouth, Throat: no problem reported Respiratory: no dyspnea Cardiovascular: no chest pain Gastrointestinal: no abdominal pain, no nausea, no vomiting and no diarrhea/loose stools Integumentary: + erythema (LLE) Physical Exam Constitutional: no acute distress Eyes: + anicteric sclerae ENMT: external ear and nose normal, oropharynx normal Neck: normal visual inspection and trachea midline Respiratory: normal respiratory effort Cardiovascular: Rate/Rhythm: regular rate Extremities: + AV fistula Gastrointestinal (Abdomen): Percussion/Palpation: abdomen soft; abdomen nontender Skin: + erythema (R calf) Neurologic: Motor/Sensory: no tremor and no asterixis Psychiatric: Orientation: alert and oriented x 3 Results & Data Vital Signs (Past 12 Hours) Vital Signs Temp Pulse Pulse Resp BP BP Pulse Ox 02/17/25 07:34 36.7 C 85 19 96/52 L 98 02/17/25 03:00 36.7 C 84 18 111/32 L 100 02/17/25 02:49 87 02/17/25 01:00 92 H 18 145/102 H 98 02/17/25 01:00 02/17/25 00:00 103 H 02/16/25 23:03 93 H 14 94 02/16/25 23:01 131/42 L 02/16/25 23:01 131/42 L 02/16/25 22:57 88 17 96 02/16/25 22:54 90 17 97 02/16/25 22:42 92 H 13 93 02/16/25 22:33 90 16 100 02/16/25 22:31 138/60 02/16/25 22:27 95 H 18 99 02/16/25 22:24 93 H 15 98 02/16/25 22:01 154/50 H 02/16/25 22:01 154/50 H 02/16/25 21:48 91 H 15 100 02/16/25 21:37 89 02/16/25 21:33 89 14 100 02/16/25 21:21 97 H 19 100 02/16/25 21:12 93 H 13 164/87 H 100 02/16/25 21:03 86 13 98 02/16/25 21:00 164/87 H 02/16/25 20:57 86 100 02/16/25 20:54 173/113 H Pulse Ox O2 Del Method O2 Del Method 02/17/25 07:34 Room Air 02/17/25 03:00 Room Air 02/17/25 02:49 02/17/25 01:00 Room Air 02/17/25 01:00 98 Room Air 02/17/25 00:00 02/16/25 23:03 02/16/25 23:01 02/16/25 23:01 02/16/25 22:57 02/16/25 22:54 02/16/25 22:42 02/16/25 22:33 02/16/25 22:31 02/16/25 22:27 02/16/25 22:24 02/16/25 22:01 02/16/25 22:01 02/16/25 21:48 02/16/25 21:37 02/16/25 21:33 02/16/25 21:21 02/16/25 21:12 02/16/25 21:03 02/16/25 21:00 02/16/25 20:57 Room Air 02/16/25 20:54 Laboratory Results Laboratory Results WBC 8.68 K/ul (4.8-10.8) 02/17/25 07:58 RBC 2.70 M/uL (4.20-5.40) L 02/17/25 07:58 Hgb 9.1 g/dl (12.0-16.0) L 02/17/25 07:58 Hct 27.7 % (37.0-47.0) L 02/17/25 07:58 MCV 102.6 fL (80.0-100.0) H 02/17/25 07:58 MCH 33.7 pg (25.0-34.0) 02/17/25 07:58 MCHC 32.9 g/dL (32.0-36.0) 02/17/25 07:58 RDW Std Deviation 53.1 fL (36.4-46.3) H 02/17/25 07:58 RDW Coeff of Poornima 14.3 % (11.5-14.5) 02/17/25 07:58 Plt Count 202 K/uL (130-400) 02/17/25 07:58 MPV 10.3 fL (9.4-12.4) 02/17/25 07:58 Immature Gran % (Auto) 0.3 % 02/17/25 07:58 Neut % (Auto) 67.5 % 02/17/25 07:58 Lymph % (Auto) 19.6 % 02/17/25 07:58 [place] % (Auto) 8.9 % 02/17/25 07:58 Eos % (Auto) 3.0 % 02/17/25 07:58 Baso % (Auto) 0.7 % 02/17/25 07:58 Neut # (Auto) 5.86 K/uL (1.40-6.50) 02/17/25 07:58 Lymph # (Auto) 1.70 K/uL (1.20-3.40) 02/17/25 07:58 [place] # (Auto) 0.77 K/uL (0.11-0.59) H 02/17/25 07:58 Eos # (Auto) 0.26 K/uL (0.00-0.50) 02/17/25 07:58 Baso # (Auto) 0.06 K/uL (0.00-0.20) 02/17/25 07:58 Immature Gran # (Auto) 0.03 K/uL (0.01-0.20) 02/17/25 07:58 PT 10.5 Seconds (9.0-12.0) 02/16/25 18:49 INR 1.0 (0.9-1.1) 02/16/25 18:49 APTT 23 Seconds (21-31) 02/16/25 18:49 PTT Ratio 0.8 02/16/25 18:49 Sodium 133 mmol/L (136-145) L 02/17/25 07:58 Potassium 4.6 mmol/L (3.5-5.1) 02/17/25 07:58 Chloride 98 mmol/L (98-107) 02/17/25 07:58 Carbon Dioxide 25 mmol/L (21-32) 02/17/25 07:58 Anion Gap 10 (3-11) 02/17/25 07:58 BUN 45 mg/dl (6-23) H 02/17/25 07:58 Creatinine 8.30 mg/dl (0.6-1.2) H* D 02/17/25 07:58 Est Cr Clr Drug Dosing 5.8 ml/min 02/17/25 07:58 eGFR 4.61 02/17/25 07:58 BUN/Creatinine Ratio 5.4 (10-20) L 02/17/25 07:58 Glucose 119 mg/dl (70-99(Fasting)) H 02/17/25 07:58 POC Glucose 129 mg/dl (70-99) H 02/17/25 07:31 Lactate 1.7 mmol/L (0.4-2.0) 02/17/25 08:02 Uric Acid 6.6 mg/dl (2.6-7.2) 02/17/25 07:58 Calcium 8.7 mg/dl (8.6-10.3) 02/17/25 07:58 Magnesium 1.6 mg/dl (1.7-2.4) L 02/17/25 07:58 Total Bilirubin 0.5 mg/dl (0.2-1.0) 02/17/25 07:58 Direct Bilirubin 0.0 mg/dl (0-0.2) 02/16/25 18:49 AST 32 U/L (13-39) 02/17/25 07:58 ALT 19 U/L (7-52) 02/17/25 07:58 Alkaline Phosphatase 75 U/L (34-104) 02/17/25 07:58 Troponin I High Sens 163.3 pg/ml (0-14) H* 02/16/25 20:50 Total Protein 4.9 gm/dl (6.0-8.3) L 02/17/25 07:58 Albumin 2.0 gm/dl (3.4-5.0) L 02/17/25 07:58 Globulin 2.9 gm/dl (2.5-4.0) 02/17/25 07:58 Albumin/Globulin Ratio 0.7 (0.9-2) L 02/17/25 07:58 Procalcitonin 1.14 ng/ml (0-0.5) H 02/16/25 18:49 Impressions Chest X-Ray 02/16/25 18:11 Chest radiograph, one view History: Chest pain Comparison: None Findings: Single AP view of the chest performed. No focal consolidation or pleural effusion. No pneumothorax. The cardiomediastinal silhouette is within normal limits. Normal pulmonary vascularity. No evidence for lymphadenopathy. No visualized bony or soft tissue abnormality. Impression: Normal chest radiograph Electronically signed by Jeyson Olmstead 02-16-2025 7:16 PM Ankle X-Ray 02/17/25 04:13 EXAM: XR ankle LT 2V CLINICAL HISTORY: Worsening pain/differential includes gout. TECHNIQUE: X-ray images of the left ankle were obtained in anteroposterior (AP), and lateral projections. COMPARISON: Prior ultrasound venous Doppler of the left lower limb dated 09/23/2024 was reviewed. FINDINGS: Bone Structure: There is significantly reduced bone mineralization. Degenerative osteoarthritic changes are noted in the visualized bones. Evidence of a calcaneal spur is present. There is no evidence of fracture or dislocation. No osseous lesions or abnormalities are identified. Soft Tissues: Vascular calcifications are noted. Diffuse soft tissue swelling is noted, with linear dense calcific foci. IMPRESSION: 1. There is reduced bone mineralization with degenerative changes. 2. Diffuse soft tissue swelling is noted, with linear dense calcific foci and advanced vascular calcifications. Needs clinical correlation. 3. There is no gross fracture or dislocation. 4. There is a plantar calcaneal spur. Disclaimer: A subtle bone abnormality or fracture may not be readily apparent on X-rays, thus clinical correlation and further imaging including follow-up CT, MRI, or follow-up X-rays are advised as needed. Electronically signed by Abran Adams 02-17-2025 08:24 AM PG Care Time/CCT Total # of Minutes Spent Total Time Spent with Patient: 80 min provided to discuss case w/ EMD last evening, review progress notes this am, interview & examine patient, order laboratory testing, coordinate NCCPD therapy, update medical record Coding Level of Care Code 96325 IN/OBS CONSULT LVL 5,80M Diagnoses ESRD on peritoneal dialysis N18.6; Z99.2 Anemia D64.9 Anemia type: unspecified type Cellulitis L03.116 Laterality: left Site of cellulitis: extremity Site of cellulitis of extremity: lower extremity (2) Anemia Anemia type: unspecified type Qualified Code(s): D64.9 - Anemia, unspecified (3) Cellulitis Laterality: left Site of cellulitis: extremity Site of cellulitis of extremity: lower extremity Qualified Code(s): L03.116 - Cellulitis of left lower limb
[2025-02-17 10:25] LABS: Hemoglobin A1C 7.3 % (4.5-5.6)
--- NOTE | 2025-02-17 11:52 | Hospitalist Progress Note ---
Date of Service February 17, 2025 Assessment & Plan (1) Cellulitis of left lower extremity from knee to ankle: (2) MRSA infection: (3) ESRD on peritoneal dialysis: (4) Type 2 diabetes mellitus with obesity: Plan Karis Guthrie (cynthia) 74-year-old female with a PMH including ESRD on peritoneal dialysis, AV fistula malfunction, MRSA infection, diabetes mellitus, anemia, ambulatory dysfunction, chronic venous insufficiency, history of pressure ulcers in buttock and coccygeal region, history of venous ulcers of bilateral lower extremities, gout, She been left lower extremity swelling, erythema and worsening pain of the left lower extremity including ankle. She had undergone a venous Doppler of left lower extremity, which did show superficial venous thrombus, but no deep venous thrombosis She has also been following with orthopedic surgery for a left Grewal's cyst. went to ER on 02/16, after having the pain in her left leg progressing to the point that she can no longer walk. She has not fallen, but has almost fallen a number of occasions. In the emergency department this evening, she was given fentanyl 50 mcg IV with only minimal improvement in pain, and was started on cefepime 2 g IV. Chest x-ray was ordered, and it was negative. she was on cefepime 2g IV for left leg celllulitis and daptomcyin Cellulitis of left lower extremity/presumptive gout flare left ankle- c/w cefepime 2 g IV every 12 hours, and daptomycin IV 550 mg every 24 hours Add uric acid level to labs Renally adjust colchicine to 0.3 mg p.o. daily still has significant left leg pain. Acetaminophen 650 mg by mouth every 6 hours as needed for mild pain or fever Tramadol 50 mg by mouth every 4 hours as needed for moderate pain Dilaudid 0.25 mg IV every 3 hours as needed for severe pain hypotension episode her lactic acid since resolved ESRD on peritoneal dialysis/failure of AV fistula/hypertension- spoke with Dr. Bragg; nephrology plan for PD in the evening Continue usual medications of cholecalciferol, Cinacalcet, Triphrocaps Continue metoprolol succinate, furosemide, potassium chloride, Plavix, Diabetes mellitus- Change insulin degludec from 30 units subcu at bedtime glargine 20 units subcu at bedtime Placed on Accu-Cheks with NovoLog SSI Depression/anxiety/insomnia- Continue zolpidem at bedtime, buspirone Hyperlipidemia- Hold rosuvastatin while on daptomycin Hypomagnesemia- Magnesium 1.6 on admission Allowed to be corrected through ED Anemia of chronic kidney disease- Hemoglobin 9.2 is in her usual range Left lower extremity superficial venous thrombosis- As noted on venous Doppler of 02/10/2025, with no DVT noted Not a candidate for anti-inflammatories unless we use steroids If becomes bothersome, could use local treatment such as heat Admission and Anticipated Discharge Date Admission Date: February 16, 2025 Subjective she continue to has left side leg pain, she's on IV antibiotics in addition, her BP is soft nephrology noted, she's currently on peritoneal HD for her ESRD insomnia episode overnight Physical Exam Physical Exam: VITALS: Reviewed. WEIGHT/BMI reviewed. GEN: Healthy appearing, well-developed, NAD. HEENT -Head: NC/AT; NECK: Supple, with no masses. CV: RRR, no m/r/g. LUNGS: CTAB, no w/r/c. ABD: Soft, NT/ND, NBS, no masses or organomegaly. SKIN: Warm, well perfused. No skin rashes or abnormal lesions. EXT: left leg erythema; tender to palpation; NEURO: Ambulating with no limitations. Normal muscle strength and tone. No focal deficits. Results & Data Results & Data Vital Signs (Past 12 Hours) Vital Signs Temp Pulse Pulse Resp BP Pulse Ox Pulse Ox 02/17/25 11:30 36.7 C 78 19 99/42 L 100 02/17/25 09:41 02/17/25 09:40 97 H 02/17/25 07:34 36.7 C 85 19 96/52 L 98 02/17/25 03:00 36.7 C 84 18 111/32 L 100 02/17/25 02:49 87 02/17/25 01:00 92 H 18 145/102 H 98 02/17/25 01:00 98 02/17/25 00:00 103 H O2 Del Method O2 Del Method 02/17/25 11:30 Room Air 02/17/25 09:41 Room Air 02/17/25 09:40 02/17/25 07:34 Room Air 02/17/25 03:00 Room Air 02/17/25 02:49 02/17/25 01:00 Room Air 02/17/25 01:00 Room Air 02/17/25 00:00 PG Care Time/CCT Total # of Minutes Spent Total Time Spent with Patient: Total time spent is greater than 50% in coordination of care (as documented) at patient's floor/unit and/or counseling patient: Coding Level of Care Code 31970 SUB INP/OBS CARE 05/21MIN Diagnoses Cellulitis of left lower extremity from knee to ankle L03.116 MRSA infection A49.02 ESRD on peritoneal dialysis N18.6; Z99.2 Type 2 diabetes mellitus with obesity E11.69; E66.9 Time Spent (min) 25
[2025-02-17] MEDS: EPOETIN ALFA 10,000 UNITS/ML VIAL SQ SCH (12:10)
[2025-02-17] MEDS ORDERED: COLCHICINE 0.6 MG TAB PO PRN (15:29)
--- NOTE | 2025-02-17 19:34 | Electrocardiogram Report ---
Test Reason : Blood Pressure : */* mmHG Vent. Rate : 84 BPM Atrial Rate : 84 BPM P-R Int : 148 ms QRS Dur : 80 ms QT Int : 390 ms P-R-T Axes : 45 -9 40 degrees QTcB Int : 460 ms Sinus rhythm Premature supraventricular complexes Possible Anterior infarct , age undetermined Abnormal ECG When compared with ECG of 07-Dec-2024 21:00, Premature supraventricular complexes are now Present Confirmed by Nic Kaplan ([id number]) on 02/17/2025 7:33:52 PM Referred By: REFERRED SELF Confirmed By: Nic Kaplan
[2025-02-17] MEDS: ZOLPIDEM TARTRATE 5 MG TAB PO SCH (20:41)
[2025-02-17] MEDS: METOPROLOL SUCC 25MG EXT REL TAB PO SCH (20:43)
[2025-02-17] MEDS: CYANOCOBALAMIN (B-12) 500 MCG TABLET PO SCH (20:43)
[2025-02-17] MEDS: CHOLECALCIFEROL 125 MCG (5,000 UNITS) TAB PO SCH (20:44)
[2025-02-17] MEDS: CLOPIDOGREL BISULFATE 75 MG TAB PO SCH (20:44)
[2025-02-17] MEDS: CALCITRIOL 0.25 MCG CAPSULE PO SCH (20:44)
[2025-02-17] MEDS: POTASSIUM CHLORIDE 10 MEQ TABCR PO SCH (20:45)
[2025-02-17] MEDS: LANTUS PER UNIT CHARGE SQ SCH (20:50)
[2025-02-17] MEDS ORDERED: ROSUVASTATIN CALCIUM 20 MG TAB PO SCH (21:00)
[2025-02-18 07:21] LABS: Hematocrit (blood only) 30.9 % (37.0-47.0); Hemoglobin 10.0 g/dl (12.0-16.0); Immature Granulocytes # (auto) 0.04 K/uL (0.01-0.20); Immature Granulocytes % (auto) 0.5 %; Mean Corpuscular Hemoglobin 33.4 pg (25.0-34.0); Mean Corpuscular Volume 103.3 fL (80.0-100.0); Platelet Count 214 K/uL (130-400); RDW Standard Deviation 54.9 fL (36.4-46.3); Red Blood Count 2.99 M/uL (4.20-5.40); White Blood Count 7.41 K/ul (4.8-10.8)
[2025-02-18 07:37] LABS: Albumin Level 2.3 gm/dl (3.4-5.0); Anion Gap 11.0 (3-11); Bilirubin,Total 0.5 mg/dl (0.2-1.0); Calcium 8.7 mg/dl (8.6-10.3); Carbon Dioxide 23.0 mmol/L (21-32); Chloride 95.0 mmol/L (98-107); Magnesium 1.7 mg/dl (1.7-2.4); Potassium 4.8 mmol/L (3.5-5.1); Sodium 129.0 mmol/L (136-145)
[2025-02-18 07:46] LABS: Alanine Aminotransferase 19.0 U/L (7-52); Albumin Globulin Ratio 0.7 (0.9-2); Alkaline Phosphatase 86.0 U/L (34-104); Blood Urea Nitrogen 40.0 mg/dl (6-23); Creatinine Clr Calc Pharmacy 6.5 ml/min; Globulin 3.3 gm/dl (2.5-4.0); Glucose 293.0 mg/dl (70-99(Fasting)); Total Iron Binding Cap Calc 151.0 mcg/dl (250-450); Total Protein 5.6 gm/dl (6.0-8.3); Transferrin 108.0 mg/dl (200-360)
[2025-02-18 08:18] LABS: Ferritin 1195.7 ng/ml (8-388)
[2025-02-18 08:27] LABS: Transferrin (FE) Percent Satur 30.0 % (15-50)
[2025-02-18] MEDS: CEFEPIME 1000MG 1,000 MG/10 ML SYR IV SCH (09:40)
--- NOTE | 2025-02-18 10:03 | CT Scan Report ---
Clinical history: Pain. Rule out abscess Technique: Axial computed tomography images were obtained of the left thigh without intravenous contrast. Sagittal and coronal reconstructions were obtained Findings: No fracture is identified. No subluxation or dislocation is seen. There is mild left hip and left knee osteoarthritis. No focal osseous lesion is evident There is diffuse subcutaneous edema that may be due to cellulitis. No clear abscess is seen. There are calcified uterine leiomyomas. There is an apparent peritoneal dialysis catheter. There is a small amount of ascites. There is a small knee effusion with a small Grewal's cyst. There is extensive multifocal atherosclerotic plaque. Impression: 1. No definite osteomyelitis or abscess 2. Subcutaneous edema that may be due to cellulitis 3. Ascites with a peritoneal dialysis catheter in place 4. Uterine leiomyomas 5. Mild osteoarthritis 6. Left knee effusion with a Grewal's cyst Electronically signed by Richard Hubbard 02-18-2025 09:48 AM
--- NOTE | 2025-02-18 10:03 | CT Scan Report ---
Technique: Axial computed tomography images were obtained of the left lower leg without intravenous contrast. Sagittal and coronal reconstructions were obtained Findings: No fracture is identified. No subluxation or dislocation is seen. There are no significant arthritic changes. No focal osseous lesion is evident. There is osteopenia. There is no clear evidence of osteomyelitis. There is a plantar calcaneal spur The visualized musculature appears unremarkable. There is mild diffuse subcutaneous edema. There is multifocal atherosclerotic plaque. No definite soft tissue mass or focal fluid collection is seen. No foreign body is evident Impression: 1. Subcutaneous edema that may be due to cellulitis 2. No definite abscess or osteomyelitis Electronically signed by Richard Hubbard 02-18-2025 09:52 AM
[2025-02-18] MEDS: MIDODRINE HCL 2.5 MG TAB PO SCH (12:44)
--- NOTE | 2025-02-18 13:26 | Nephrology Progress Note ---
Date of Service February 18, 2025 Assessment & Plan (1) ESRD on peritoneal dialysis: Plan: * Attributed to DKD and hypertension. Maintained on PD. * Outpatient Rx: NCCPD 5 x 2.5 L, 90 min dwell, 1000 ml last fill. EDW 78 kg * Volume status is acceptable. Electrolytes normal. * Plan to continue with NCCPD with treatment tonight. * Diuretic held due to low BP and intravascular depletion. * Maintain a renal diet and document I/O's. * Sensipar can be held while inpatient. Calcitriol continued per home Rx. * Daily BMP. (2) Anemia: Plan: * Epogen 10,000 units SQ x1 provided yesterday. * Iron stores acceptable. * (3) Cellulitis: Plan: * Cefepime switched to Zosyn. * Remains on daptomycin. * CT completed this AM. * Monitor CK while on daptomycin. Admission and Anticipated Discharge Date Admission Date: February 16, 2025 Subjective No acute events overnight. Margaux tolerated PD well. No complications with treatment. Net UF ~ 578 ml. Effluent clear. No fevers or chills. No fluid retention or edema. Hypotensive but Karis denies any associated symptoms. She states that she feels well overall and hopes to be discharged home soon. Review of Systems Review of Systems: All systems reviewed & are unremarkable except as noted in HPI & below Physical Exam Constitutional: no acute distress Eyes: + anicteric sclerae ENMT: external ear and nose normal, oropharynx normal Neck: normal visual inspection and trachea midline Respiratory: normal respiratory effort Cardiovascular: Rate/Rhythm: regular rate Extremities: + AV fistula Gastrointestinal (Abdomen): Percussion/Palpation: abdomen soft; abdomen nontender Skin: + erythema (R calf) Neurologic: Motor/Sensory: no tremor and no asterixis Psychiatric: Orientation: alert and oriented x 3 Results & Data Vital Signs (Past 12 Hours) Vital Signs Temp Pulse Resp BP Pulse Ox O2 Del Method 02/18/25 11:30 36.7 C 89 97 Room Air 02/18/25 09:07 36.8 C 76 16 02/18/25 07:36 81/41 L 02/18/25 07:25 36.8 C 76 16 97 Room Air 02/18/25 04:12 36.6 C 71 18 108/64 95 Room Air Laboratory Results Laboratory Results - last 24 hr 02/17/25 02/17/25 02/18/25 16:05 20:18 06:23 WBC 7.41 RBC 2.99 L Hgb 10.0 L Hct 30.9 L MCV 103.3 H MCH 33.4 MCHC 32.4 RDW Std Deviation 54.9 H RDW Coeff of Poornima 14.6 H Plt Count 214 MPV 10.5 Immature Gran % (Auto) 0.5 Neut % (Auto) 71.0 Lymph % (Auto) 15.7 [place] % (Auto) 8.4 Eos % (Auto) 3.6 Baso % (Auto) 0.8 Neut # (Auto) 5.26 Lymph # (Auto) 1.16 L [place] # (Auto) 0.62 H Eos # (Auto) 0.27 Baso # (Auto) 0.06 Immature Gran # (Auto) 0.04 Sodium 129 L Potassium 4.8 Chloride 95 L Carbon Dioxide 23 Anion Gap 11 BUN 40 H Creatinine 7.40 H* D Est Cr Clr Drug Dosing 6.5 eGFR 5.29 BUN/Creatinine Ratio 5.4 L Glucose 293 H POC Glucose 99 207 H Lactate Calcium 8.7 Magnesium 1.7 Iron TNP TIBC 151 L Transferrin 108 L Transferrin % Sat 30 Ferritin 1195.7 H Total Bilirubin 0.5 AST 35 ALT 19 Alkaline Phosphatase 86 Total Protein 5.6 L Albumin 2.3 L Globulin 3.3 Albumin/Globulin Ratio 0.7 L 02/18/25 02/18/25 02/18/25 07:22 08:47 09:55 WBC RBC Hgb Hct MCV MCH MCHC RDW Std Deviation RDW Coeff of Poornima Plt Count MPV Immature Gran % (Auto) Neut % (Auto) Lymph % (Auto) [place] % (Auto) Eos % (Auto) Baso % (Auto) Neut # (Auto) Lymph # (Auto) [place] # (Auto) Eos # (Auto) Baso # (Auto) Immature Gran # (Auto) Sodium Potassium Chloride Carbon Dioxide Anion Gap BUN Creatinine Est Cr Clr Drug Dosing eGFR BUN/Creatinine Ratio Glucose POC Glucose 282 H 230 H Lactate 2.2 H* Calcium Magnesium Iron TIBC Transferrin Transferrin % Sat Ferritin Total Bilirubin AST ALT Alkaline Phosphatase Total Protein Albumin Globulin Albumin/Globulin Ratio 02/18/25 02/18/25 10:48 11:53 WBC RBC Hgb Hct MCV MCH MCHC RDW Std Deviation RDW Coeff of Poornima Plt Count MPV Immature Gran % (Auto) Neut % (Auto) Lymph % (Auto) [place] % (Auto) Eos % (Auto) Baso % (Auto) Neut # (Auto) Lymph # (Auto) [place] # (Auto) Eos # (Auto) Baso # (Auto) Immature Gran # (Auto) Sodium Potassium Chloride Carbon Dioxide Anion Gap BUN Creatinine Est Cr Clr Drug Dosing eGFR BUN/Creatinine Ratio Glucose POC Glucose 196 H Lactate 2.3 H* Calcium Magnesium Iron TIBC Transferrin Transferrin % Sat Ferritin Total Bilirubin AST ALT Alkaline Phosphatase Total Protein Albumin Globulin Albumin/Globulin Ratio PG Care Time/CCT Total # of Minutes Spent Total Time Spent with Patient: Total time spent is greater than 50% in coordination of care (as documented) at patient's floor/unit and/or counseling patient: Coding Level of Care Code 01392 SUB INP/OBS CARE 2/35MIN Diagnoses ESRD on peritoneal dialysis N18.6; Z99.2 Anemia D64.9 Anemia type: unspecified type Cellulitis L03.116 Laterality: left Site of cellulitis: extremity Site of cellulitis of extremity: lower extremity (2) Anemia Anemia type: unspecified type Qualified Code(s): D64.9 - Anemia, unspecified (3) Cellulitis Laterality: left Site of cellulitis: extremity Site of cellulitis of extremity: lower extremity Qualified Code(s): L03.116 - Cellulitis of left lower limb
[2025-02-18] MEDS: 4.5GM X1 IV ONE (13:54)
--- NOTE | 2025-02-18 14:06 | Hospitalist Progress Note ---
Date of Service February 18, 2025 Assessment & Plan (1) Cellulitis of left lower extremity from knee to ankle: (2) MRSA infection: (3) ESRD on peritoneal dialysis: (4) Type 2 diabetes mellitus with obesity: Plan Karis Guthrie (cynthia) 74-year-old female with a PMH ESRD on peritoneal dialysis, AV fistula malfunction, MRSA infection, diabetes mellitus, anemia, ambulatory dysfunction, chronic venous insufficiency, history of pressure ulcers in buttock and coccygeal region, history of venous ulcers of bilateral lower extremities, gout, she's following with wound care center for her lower extremity wound and pressure ulcer She been left lower extremity swelling, erythema and worsening pain of the left lower extremity including ankle. She had undergone a venous Doppler of left lower extremity, which did show superficial venous thrombus, but no deep venous thrombosis She has also been following with orthopedic surgery for a left Grewal's cyst. went to ER on 02/16, after having the pain in her left leg progressing to the point that she can no longer walk. She has not fallen, but has almost fallen a number of occasions. In the emergency department this evening, she was given fentanyl 50 mcg IV with only minimal improvement in pain, and was started on cefepime 2 g IV. Chest x-ray was ordered, and it was negative. she was on cefepime 2g IV for left leg celllulitis and daptomcyin Cellulitis of left lower extremity/presumptive gout flare left ankle- superficial thrombus c/w daptomycin IV 550 mg every 24 hours she was switched from cefepime to zosyn on thursday (02/18) Renally adjust colchicine to 0.3 mg p.o. daily still has significant left leg pain. Acetaminophen 650 mg by mouth every 6 hours as needed for mild pain or fever Tramadol 50 mg by mouth every 4 hours as needed for moderate pain Dilaudid 0.25 mg IV every 3 hours as needed for severe pain hypotension episode-metoprolol being held added midodrine for BP support ESRD on peritoneal dialysis/failure of AV fistula/hypertension- spoke with Dr. Bragg; nephrology plan for PD in the evening Continue usual medications of cholecalciferol, Cinacalcet, Triphrocaps Continue metoprolol succinate, furosemide, potassium chloride, Plavix, Diabetes mellitus- Change insulin degludec from 30 units subcu at bedtime glargine 20 units subcu at bedtime Placed on Accu-Cheks with NovoLog SSI Depression/anxiety/insomnia- Continue zolpidem at bedtime, buspirone Hyperlipidemia- Hold rosuvastatin while on daptomycin Hypomagnesemia- Magnesium 1.6 on admission Allowed to be corrected through ED Anemia of chronic kidney disease- Hemoglobin 9.2 is in her usual range Left lower extremity superficial venous thrombosis- As noted on venous Doppler of 02/10/2025, with no DVT noted Not a candidate for anti-inflammatories unless we use steroids If becomes bothersome, could use local treatment such as heat Admission and Anticipated Discharge Date Admission Date: February 16, 2025 Subjective her BP is low and lactic acid is elevated her metoprolol been held switching to zosyn, she's has LEFT leg cellulitis, however, she's also has a chronic RIGHT leg ulcer, and been slow to heal, she's following with wound care center she's has multiple near fall episode and need PT/OT clearance 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 [employer] Review of Systems Review of Systems: Constitutional: no fever; no chill Cardiovascular: No Chest Pain, No SOB, No PND, No Dyspnea on Exertion, No Orthopnea, lung: no shortness of breath Gastrointestinal: No Nausea, No Vomiting, No Diarrhea, No Constipation, No Pain, No Heartburn, No Anorexia, No Dysphagia, No Hematochezia, No Melena, No Flatulence, No Jaundice Musculoskeletal: + for left leg pain Skin: + for chronic wound on the right leg and back Neuro: No Weakness, No Numbness, No Paresthesias, No Loss of Consciousness, No Syncope, No Dizziness, No Headache, No Coordination Changes, No Recent Falls Endocrine: No Polyuria, No Polydipsia, No Temperature Intolerance Physical Exam Physical Exam: VITALS: Reviewed. WEIGHT/BMI reviewed. GEN: Healthy appearing, well-developed, NAD. HEENT -Head: NC/AT; -Nose: Normal nares. MSK: + for left leg tenderness; firmness; + for RIGHT lateral leg ulcer. NECK: large neck diameter CV: RRR, no m/r/g. LUNGS: CTAB, no w/r/c. ABD: Soft, NT/ND, NBS, no masses or organomegaly. : N/A SKIN: Warm, well perfused. No skin rashes or abnormal lesions. NEURO: AAOx3 Results & Data Results & Data Vital Signs (Past 12 Hours) Vital Signs Temp Pulse Resp BP Pulse Ox O2 Del Method 02/18/25 11:30 36.7 C 89 97 Room Air 02/18/25 09:07 36.8 C 76 16 02/18/25 07:36 81/41 L 02/18/25 07:25 36.8 C 76 16 97 Room Air 02/18/25 04:12 36.6 C 71 18 108/64 95 Room Air Laboratory Results Laboratory Results - last 72 hr 02/16/25 02/16/25 02/16/25 18:49 20:41 20:50 WBC 10.91 H RBC 2.71 L Hgb 9.2 L Hct 27.7 L MCV 102.2 H MCH 33.9 MCHC 33.2 RDW Std Deviation 53.3 H RDW Coeff of Poornima 14.4 Plt Count 237 MPV 10.7 Immature Gran % (Auto) 0.5 Neut % (Auto) 74.2 Lymph % (Auto) 15.9 Tyrrell % (Auto) 7.3 Eos % (Auto) 1.6 Baso % (Auto) 0.5 Neut # (Auto) 8.08 H Lymph # (Auto) 1.73 Tyrrell # (Auto) 0.80 H Eos # (Auto) 0.18 Baso # (Auto) 0.06 Immature Gran # (Auto) 0.06 PT 10.5 INR 1.0 APTT 23 PTT Ratio 0.8 Sodium 134 L Potassium 4.3 Chloride 96 L Carbon Dioxide 26 Anion Gap 12 H BUN 38 H Creatinine 7.78 H* Est Cr Clr Drug Dosing Not Reportable eGFR 4.98 BUN/Creatinine Ratio 4.9 L Glucose 257 H POC Glucose 211 H Estimat Average Glucose Hemoglobin A1c Lactate 3.3 H* 2.6 H* Uric Acid Calcium 9.5 Magnesium 1.6 L Iron TIBC Transferrin Transferrin % Sat Ferritin Total Bilirubin 0.5 Direct Bilirubin 0.0 AST 38 ALT 25 Alkaline Phosphatase 92 Troponin I High Sens 193.0 H* 163.3 H* Total Protein 5.4 L Albumin 2.3 L Globulin Albumin/Globulin Ratio Procalcitonin 1.14 H 02/17/25 02/17/25 02/17/25 07:31 07:58 08:02 WBC 8.68 RBC 2.70 L Hgb 9.1 L Hct 27.7 L MCV 102.6 H MCH 33.7 MCHC 32.9 RDW Std Deviation 53.1 H RDW Coeff of Poornima 14.3 Plt Count 202 MPV 10.3 Immature Gran % (Auto) 0.3 Neut % (Auto) 67.5 Lymph % (Auto) 19.6 Tyrrell % (Auto) 8.9 Eos % (Auto) 3.0 Baso % (Auto) 0.7 Neut # (Auto) 5.86 Lymph # (Auto) 1.70 Tyrrell # (Auto) 0.77 H Eos # (Auto) 0.26 Baso # (Auto) 0.06 Immature Gran # (Auto) 0.03 PT INR APTT PTT Ratio Sodium 133 L Potassium 4.6 Chloride 98 Carbon Dioxide 25 Anion Gap 10 BUN 45 H Creatinine 8.30 H* D Est Cr Clr Drug Dosing 5.8 eGFR 4.61 BUN/Creatinine Ratio 5.4 L Glucose 119 H POC Glucose 129 H Estimat Average Glucose 163 Hemoglobin A1c 7.3 H Lactate 1.7 Uric Acid 6.6 Calcium 8.7 Magnesium 1.6 L Iron TIBC Transferrin Transferrin % Sat Ferritin Total Bilirubin 0.5 Direct Bilirubin AST 32 ALT 19 Alkaline Phosphatase 75 Troponin I High Sens Total Protein 4.9 L Albumin 2.0 L Globulin 2.9 Albumin/Globulin Ratio 0.7 L Procalcitonin 02/17/25 02/17/25 02/17/25 10:42 16:05 20:18 WBC RBC Hgb Hct MCV MCH MCHC RDW Std Deviation RDW Coeff of Poornima Plt Count MPV Immature Gran % (Auto) Neut % (Auto) Lymph % (Auto) Tyrrell % (Auto) Eos % (Auto) Baso % (Auto) Neut # (Auto) Lymph # (Auto) Tyrrell # (Auto) Eos # (Auto) Baso # (Auto) Immature Gran # (Auto) PT INR APTT PTT Ratio Sodium Potassium Chloride Carbon Dioxide Anion Gap BUN Creatinine Est Cr Clr Drug Dosing eGFR BUN/Creatinine Ratio Glucose POC Glucose 86 99 207 H Estimat Average Glucose Hemoglobin A1c Lactate Uric Acid Calcium Magnesium Iron TIBC Transferrin Transferrin % Sat Ferritin Total Bilirubin Direct Bilirubin AST ALT Alkaline Phosphatase Troponin I High Sens Total Protein Albumin Globulin Albumin/Globulin Ratio Procalcitonin 02/18/25 02/18/25 02/18/25 06:23 07:22 08:47 WBC 7.41 RBC 2.99 L Hgb 10.0 L Hct 30.9 L MCV 103.3 H MCH 33.4 MCHC 32.4 RDW Std Deviation 54.9 H RDW Coeff of Poornima 14.6 H Plt Count 214 MPV 10.5 Immature Gran % (Auto) 0.5 Neut % (Auto) 71.0 Lymph % (Auto) 15.7 Tyrrell % (Auto) 8.4 Eos % (Auto) 3.6 Baso % (Auto) 0.8 Neut # (Auto) 5.26 Lymph # (Auto) 1.16 L Tyrrell # (Auto) 0.62 H Eos # (Auto) 0.27 Baso # (Auto) 0.06 Immature Gran # (Auto) 0.04 PT INR APTT PTT Ratio Sodium 129 L Potassium 4.8 Chloride 95 L Carbon Dioxide 23 Anion Gap 11 BUN 40 H Creatinine 7.40 H* D Est Cr Clr Drug Dosing 6.5 eGFR 5.29 BUN/Creatinine Ratio 5.4 L Glucose 293 H POC Glucose 282 H Estimat Average Glucose Hemoglobin A1c Lactate 2.2 H* Uric Acid Calcium 8.7 Magnesium 1.7 Iron TNP TIBC 151 L Transferrin 108 L Transferrin % Sat 30 Ferritin 1195.7 H Total Bilirubin 0.5 Direct Bilirubin AST 35 ALT 19 Alkaline Phosphatase 86 Troponin I High Sens Total Protein 5.6 L Albumin 2.3 L Globulin 3.3 Albumin/Globulin Ratio 0.7 L Procalcitonin 02/18/25 02/18/25 02/18/25 09:55 10:48 11:53 WBC RBC Hgb Hct MCV MCH MCHC RDW Std Deviation RDW Coeff of Poornima Plt Count MPV Immature Gran % (Auto) Neut % (Auto) Lymph % (Auto) Tyrrell % (Auto) Eos % (Auto) Baso % (Auto) Neut # (Auto) Lymph # (Auto) Tyrrell # (Auto) Eos # (Auto) Baso # (Auto) Immature Gran # (Auto) PT INR APTT PTT Ratio Sodium Potassium Chloride Carbon Dioxide Anion Gap BUN Creatinine Est Cr Clr Drug Dosing eGFR BUN/Creatinine Ratio Glucose POC Glucose 230 H 196 H Estimat Average Glucose Hemoglobin A1c Lactate 2.3 H* Uric Acid Calcium Magnesium Iron TIBC Transferrin Transferrin % Sat Ferritin Total Bilirubin Direct Bilirubin AST ALT Alkaline Phosphatase Troponin I High Sens Total Protein Albumin Globulin Albumin/Globulin Ratio Procalcitonin Diagnostic Findings Laboratory Results WBC 7.41 K/ul (4.8-10.8) 02/18/25 06:23 RBC 2.99 M/uL (4.20-5.40) L 02/18/25 06:23 Hgb 10.0 g/dl (12.0-16.0) L 02/18/25 06:23 Hct 30.9 % (37.0-47.0) L 02/18/25 06:23 MCV 103.3 fL (80.0-100.0) H 02/18/25 06:23 MCH 33.4 pg (25.0-34.0) 02/18/25 06: MCHC 32.4 g/dL (32.0-36.0) 02/18/25 06: RDW Std Deviation 54.9 fL (36.4-46.3) H 02/18/25 06: RDW Coeff of Poornima 14.6 % (11.5-14.5) H 02/18/25 06:23 Plt Count 214 K/uL (130-400) 02/18/25 06:23 MPV 10.5 fL (9.4-12.4) 02/18/25 06:23 Immature Gran % (Auto) 0.5 % 02/18/25 06:23 Neut % (Auto) 71.0 % 02/18/25 06:23 Lymph % (Auto) 15.7 % 02/18/25 06:23 Tyrrell % (Auto) 8.4 % 02/18/25 06:23 Eos % (Auto) 3.6 % 02/18/25 06:23 Baso % (Auto) 0.8 % 02/18/25 06:23 Neut # (Auto) 5.26 K/uL (1.40-6.50) 02/18/25 06:23 Lymph # (Auto) 1.16 K/uL (1.20-3.40) L 02/18/25 06:23 Tyrrell # (Auto) 0.62 K/uL (0.11-0.59) H 02/18/25 06:23 Eos # (Auto) 0.27 K/uL (0.00-0.50) 02/18/25 06:23 Baso # (Auto) 0.06 K/uL (0.00-0.20) 02/18/25 06:23 Immature Gran # (Auto) 0.04 K/uL (0.01-0.20) 02/18/25 06:23 PT 10.5 Seconds (9.0-12.0) 02/16/25 18:49 INR 1.0 (0.9-1.1) 02/16/25 18:49 APTT 23 Seconds (21-31) 02/16/25 18:49 PTT Ratio 0.8 02/16/25 18:49 Sodium 129 mmol/L (136-145) L 02/18/25 06:23 Potassium 4.8 mmol/L (3.5-5.1) 02/18/25 06:23 Chloride 95 mmol/L (98-107) L 02/18/25 06:23 Carbon Dioxide 23 mmol/L (21-32) 02/18/25 06:23 Anion Gap 11 (3-11) 02/18/25 06:23 BUN 40 mg/dl (6-23) H 02/18/25 06:23 Creatinine 7.40 mg/dl (0.6-1.2) H* D 02/18/25 06:23 Est Cr Clr Drug Dosing 6.5 ml/min 02/18/25 06:23 eGFR 5.29 02/18/25 06:23 BUN/Creatinine Ratio 5.4 (10-20) L 02/18/25 06:23 Glucose 293 mg/dl (70-99(Fasting)) H 02/18/25 06:23 POC Glucose 196 mg/dl (70-99) H 02/18/25 11:53 Estimat Average Glucose 163 mg/dl 02/17/25 07:58 Hemoglobin A1c 7.3 % (4.5-5.6) H 02/17/25 07:58 Lactate 2.3 mmol/L (0.4-2.0) H* 02/18/25 10:48 Uric Acid 6.6 mg/dl (2.6-7.2) 02/17/25 07:58 Calcium 8.7 mg/dl (8.6-10.3) 02/18/25 06:23 Magnesium 1.7 mg/dl (1.7-2.4) 02/18/25 06:23 Iron TNP 02/18/25 06:23 TIBC 151 mcg/dl (250-450) L 02/18/25 06:23 Transferrin 108 mg/dl (200-360) L 02/18/25 06:23 Transferrin % Sat 30 % (15-50) 02/18/25 06:23 Ferritin 1195.7 ng/ml (8-388) H 02/18/25 06:23 Total Bilirubin 0.5 mg/dl (0.2-1.0) 02/18/25 06:23 Direct Bilirubin 0.0 mg/dl (0-0.2) 02/16/25 18:49 AST 35 U/L (13-39) 02/18/25 06:23 ALT 19 U/L (7-52) 02/18/25 06:23 Alkaline Phosphatase 86 U/L (34-104) 02/18/25 06:23 Troponin I High Sens 163.3 pg/ml (0-14) H* 02/16/25 20:50 Total Protein 5.6 gm/dl (6.0-8.3) L 02/18/25 06:23 Albumin 2.3 gm/dl (3.4-5.0) L 02/18/25 06:23 Globulin 3.3 gm/dl (2.5-4.0) 02/18/25 06:23 Albumin/Globulin Ratio 0.7 (0.9-2) L 02/18/25 06:23 Procalcitonin 1.14 ng/ml (0-0.5) H 02/16/25 18:49 Impressions Chest X-Ray 02/16/25 18:11 Chest radiograph, one view History: Chest pain Comparison: None Findings: Single AP view of the chest performed. No focal consolidation or pleural effusion. No pneumothorax. The cardiomediastinal silhouette is within normal limits. Normal pulmonary vascularity. No evidence for lymphadenopathy. No visualized bony or soft tissue abnormality. Impression: Normal chest radiograph Electronically signed by Jeyson Olmstead 02-16-2025 7:16 PM Ankle X-Ray 02/17/25 04:13 EXAM: XR ankle LT 2V CLINICAL HISTORY: Worsening pain/differential includes gout. TECHNIQUE: X-ray images of the left ankle were obtained in anteroposterior (AP), and lateral projections. COMPARISON: Prior ultrasound venous Doppler of the left lower limb dated 09/23/2024 was reviewed. FINDINGS: Bone Structure: There is significantly reduced bone mineralization. Degenerative osteoarthritic changes are noted in the visualized bones. Evidence of a calcaneal spur is present. There is no evidence of fracture or dislocation. No osseous lesions or abnormalities are identified. Soft Tissues: Vascular calcifications are noted. Diffuse soft tissue swelling is noted, with linear dense calcific foci. IMPRESSION: 1. There is reduced bone mineralization with degenerative changes. 2. Diffuse soft tissue swelling is noted, with linear dense calcific foci and advanced vascular calcifications. Needs clinical correlation. 3. There is no gross fracture or dislocation. 4. There is a plantar calcaneal spur. Disclaimer: A subtle bone abnormality or fracture may not be readily apparent on X-rays, thus clinical correlation and further imaging including follow-up CT, MRI, or follow-up X-rays are advised as needed. Electronically signed by Abran Adams 02-17-2025 08:[address] 02/18/25 08:56 Clinical history: Pain. Rule out abscess Technique: Axial computed tomography images were obtained of the left thigh without intravenous contrast. Sagittal and coronal reconstructions were obtained Findings: No fracture is identified. No subluxation or dislocation is seen. There is mild left hip and left knee osteoarthritis. No focal osseous lesion is evident There is diffuse subcutaneous edema that may be due to cellulitis. No clear abscess is seen. There are calcified uterine leiomyomas. There is an apparent peritoneal dialysis catheter. There is a small amount of ascites. There is a small knee effusion with a small Grewal's cyst. There is extensive multifocal atherosclerotic plaque. Impression: 1. No definite osteomyelitis or abscess 2. Subcutaneous edema that may be due to cellulitis 3. Ascites with a peritoneal dialysis catheter in place 4. Uterine leiomyomas 5. Mild osteoarthritis 6. Left knee effusion with a Grewal's cyst Electronically signed by Richard Hubbard 02-18-2025 09:[address] 02/18/25 08:56 Technique: Axial computed tomography images were obtained of the left lower leg without intravenous contrast. Sagittal and coronal reconstructions were obtained Findings: No fracture is identified. No subluxation or dislocation is seen. There are no significant arthritic changes. No focal osseous lesion is evident. There is osteopenia. There is no clear evidence of osteomyelitis. There is a plantar calcaneal spur The visualized musculature appears unremarkable. There is mild diffuse subcutaneous edema. There is multifocal atherosclerotic plaque. No definite soft tissue mass or focal fluid collection is seen. No foreign body is evident Impression: 1. Subcutaneous edema that may be due to cellulitis 2. No definite abscess or osteomyelitis Electronically signed by Richard Hubbard 02-18-2025 09:52 AM Medications Administered Current Inpatient Medications Acetaminophen (Acetaminophen 325 Mg Tab) 650 mg PO Q4H PRN PRN Reason: Pain or Fever Stop: 03/18/25 23:19 Buspirone HCl (Buspirone 7.5 Mg Tab) 7.5 mg PO QPM [facility] Stop: 03/19/25 20:59 Last Admin: 02/17/25 20:45 Dose: 7.5 mg Calcitriol (Calcitriol 0.25 Mcg Capsule) 0.5 mcg PO QPM [facility] Stop: 03/19/25 20:59 Last Admin: 02/17/25 20:44 Dose: 0.5 mcg Cinacalcet (Cinacalcet Hcl 30 Mg Tab) 30 mg PO DAILY [facility] Stop: 03/19/25 08:59 Last Admin: 02/18/25 09:35 Dose: 30 mg Clopidogrel Bisulfate (Clopidogrel Bisulfate 75 Mg Tab) 75 mg PO QPM [facility] Stop: 03/19/25 20:59 Last Admin: 02/17/25 20:44 Dose: 75 mg Colchicine (Colchicine 0.6 Mg Tab) 0.3 mg PO DAILY PRN PRN Reason: gout Stop: 03/19/25 08:59 Cyanocobalamin (Cyanocobalamin (B-12) 500 Mcg Tablet) 1,000 mcg PO QPM [facility] Stop: 03/19/25 20:59 Last Admin: 02/17/25 20:43 Dose: 1,000 mcg Dextrose (Dextrose 50% 50 Ml Syringe) 25 - 50 ml IV UD PRN; Protocol PRN Reason: Hypoglycemia Protocol Stop: 03/18/25 23:19 Furosemide (Furosemide 80 Mg Tab) 80 mg PO BID [facility] Stop: 03/19/25 08:59 Last Admin: 02/17/25 20:43 Dose: 80 mg Gentamicin Sulfate (Gentamicin Sulfate 0.1% Cr 15 Gm Tube) 1 appln EXT DAILY [facility] Stop: 02/27/25 08:59 Last Admin: 02/17/25 18:37 Dose: 1 appln Glucagon (Glucagon For Inj 1 Mg Vial) 1 mg SQ UD PRN; Protocol PRN Reason: Hypoglycemia Protocol Stop: 03/18/25 23:19 Glucose (Glucose 40% Gel 15 Gm Tube) 15 - 30 gm PO UD PRN; Protocol PRN Reason: Hypoglycemia Protocol Stop: 03/18/25 23:19 Glucose (Glucose 10 Tab/Tube) 4 - 8 tab PO UD PRN; Protocol PRN Reason: Hypoglycemia Protocol Stop: 03/18/25 23:19 Heparin Sodium (Porcine) (Heparin Sod 5,000 Unit/0.5 Ml Vial) 5,000 units SQ Q12 [facility] Stop: 03/19/25 08:59 Last Admin: 02/18/25 09:42 Dose: Not Given Hydralazine HCl (Hydralazine Hcl 20 Mg/Ml Vial) 10 mg IV Q4H PRN PRN Reason: SBP above 160 Stop: 03/18/25 22:04 Hydromorphone HCl (Hydromorphone Inj 0.5 Mg/0.5 Ml Syr) 0.25 mg IV Q3H PRN PRN Reason: Severe Pain (Scale 7, 8, 9,10) Stop: 03/03/25 00:49 Last Admin: 02/17/25 18:37 Dose: 0.25 mg Daptomycin 500 mg/ Syringe 10 mls @ 5 mls/min IV Q48H [facility]; Protocol Stop: 02/24/25 04:59 Last Admin: 02/17/25 05:35 Dose: 5 mls/min Piperacillin Sod/Tazobactam Sod (Zosyn) 4.5 gm in 100 mls @ 25 mls/hr IV Q12H [facility]; Protocol Stop: 02/25/25 13:59 Piperacillin Sod/Tazobactam Sod (Zosyn) 4.5 gm in 100 mls @ 200 mls/hr IV 1400 ONE; Protocol Stop: 02/18/25 14:29 Last Admin: 02/18/25 13:54 Dose: 200 mls/hr Insulin Aspart (Insulin Aspart Per Unit Charge) 0 units SC ACHS [facility] Stop: 03/19/25 07:29 Last Admin: 02/18/25 12:46 Dose: 3 units Insulin Glargine (Lantus Per Unit Charge) 20 units SQ HS [facility] Stop: 03/19/25 20:59 Last Admin: 02/17/25 20:50 Dose: 20 units Metoprolol Succinate (Metoprolol Succ 25mg Ext Rel Tab) 25 mg PO QPM [facility] Stop: 03/19/25 20:59 Last Admin: 02/17/25 20:43 Dose: 25 mg Midodrine (Midodrine Hcl 2.5 Mg Tab) 5 mg PO TID@0800,1200,1700 [facility] Stop: 03/20/25 11:59 Last Admin: 02/18/25 12:44 Dose: 5 mg Miscellaneous (Carbohydrates For Hypoglycemia ) 15 - 30 gm PO UD PRN PRN Reason: Hypoglycemia Protocol Stop: 03/18/25 23:19 Ondansetron HCl (Ondansetron Inj 2 Mg/Ml 2 Ml Vial) 4 mg IV Q6H PRN PRN Reason: Nausea Stop: 03/18/25 23:19 Potassium Chloride (Potassium Chloride 10 Meq Tabcr) 40 meq PO QPM [facility] Stop: 03/19/25 20:59 Last Admin: 02/17/25 20:45 Dose: 40 meq Tramadol HCl (Tramadol Hcl 50 Mg Tablet) 50 mg PO Q4H PRN PRN Reason: Moderate Pain (Scale 4, 5, 6) Stop: 03/18/25 22:02 Last Admin: 02/18/25 13:59 Dose: 50 mg Vitamin D (Cholecalciferol 125 Mcg (5,000 Units) Tab) 62.5 mcg PO QPM [facility] Stop: 03/19/25 20:59 Last Admin: 02/17/25 20:44 Dose: 62.5 mcg Zolpidem Tartrate (Zolpidem Tartrate 5 Mg Tab) 10 mg PO HS [facility] Stop: 03/19/25 20:59 Last Admin: 02/17/25 20:41 Dose: 10 mg PG Care Time/CCT Total # of Minutes Spent Total Time Spent with Patient: Total time spent is greater than 50% in coordination of care (as documented) at patient's floor/unit and/or counseling patient: Coding Level of Care Code 22952 SUB INP/OBS CARE 25MIN Diagnoses Cellulitis of left lower extremity from knee to ankle L03.116 MRSA infection A49.02 ESRD on peritoneal dialysis N18.6; Z99.2 Type 2 diabetes mellitus with obesity E11.69; E66.9 Time Spent (min) 25
[2025-02-18] MEDS: PIPERACILLIN/TAZOBACTAM 4.5 GM/100 ML BAG IV SCH (21:04)
[2025-02-19] MEDS: MIDODRINE HCL 2.5 MG TAB PO ONE (01:15)
[2025-02-19 08:21] LABS: Hematocrit (blood only) 30.9 % (37.0-47.0); Hemoglobin 10.5 g/dl (12.0-16.0); Immature Granulocytes # (auto) 0.07 K/uL (0.01-0.20); Immature Granulocytes % (auto) 0.8 %; Mean Corpuscular Hemoglobin 34.1 pg (25.0-34.0); Mean Corpuscular Volume 100.3 fL (80.0-100.0); Platelet Count 252 K/uL (130-400); RDW Standard Deviation 52.5 fL (36.4-46.3); Red Blood Count 3.08 M/uL (4.20-5.40); White Blood Count 8.81 K/ul (4.8-10.8)
[2025-02-19 08:21] LABS: Iron 46.0 mcg/dl (35-150)
[2025-02-19 08:42] LABS: Alanine Aminotransferase 33.0 U/L (7-52); Albumin Globulin Ratio 0.6 (0.9-2); Albumin Level 2.2 gm/dl (3.4-5.0); Alkaline Phosphatase 97.0 U/L (34-104); Anion Gap 10.0 (3-11); Bilirubin,Total 0.6 mg/dl (0.2-1.0); Blood Urea Nitrogen 40.0 mg/dl (6-23); Calcium 8.7 mg/dl (8.6-10.3); Carbon Dioxide 26.0 mmol/L (21-32); Chloride 94.0 mmol/L (98-107); Creatinine Clr Calc Pharmacy 6.9 ml/min; Globulin 3.4 gm/dl (2.5-4.0); Glucose 233.0 mg/dl (70-99(Fasting)); Magnesium 1.6 mg/dl (1.7-2.4); Potassium 4.8 mmol/L (3.5-5.1); Sodium 130.0 mmol/L (136-145); Total Protein 5.6 gm/dl (6.0-8.3)
[2025-02-19] MEDS: ALBUMIN 25% 12.5 GM/50 ML VIAL IV ONE (10:28)
--- NOTE | 2025-02-19 11:18 | Hospitalist Progress Note ---
Date of Service February 19, 2025 Assessment & Plan (1) Cellulitis of left lower extremity from knee to ankle: (2) MRSA infection: (3) ESRD on peritoneal dialysis: (4) Type 2 diabetes mellitus with obesity: Plan Karis Guthrie 74-year-old female with a PMH ESRD on peritoneal dialysis, AV fistula malfunction, MRSA infection, diabetes mellitus, anemia, ambulatory dysfunction, chronic venous insufficiency, history of pressure ulcers in buttock and coccygeal region, history of venous ulcers of bilateral lower extremities, gout, she's following with wound care center for her lower extremity wound and pressure ulcer she's has multiple near fall episode at home. She been left lower extremity swelling, erythema and worsening pain of the left lower extremity including ankle. She had undergone a venous Doppler of left lower extremity, which did show superficial venous thrombus, but no deep venous thrombosis She has also been following with orthopedic surgery for a left Grewal's cyst. went to ER on 02/16, after having the pain in her left leg progressing to the point that she can no longer walk. She has not fallen, but has almost fallen a number of occasions. In the emergency department this evening, she was given fentanyl 50 mcg IV with only minimal improvement in pain, and was started on cefepime 2 g IV. Chest x-ray was ordered, and it was negative. she was on cefepime 2g IV for left leg celllulitis and daptomcyin she was switched to zosyn on 02/18 (thursday), and pain improving. Cellulitis of left lower extremity/presumptive gout flare left ankle- superficial thrombus, hx of MRSA infection. c/w daptomycin IV 550 mg every 24 hours she was switched from cefepime to zosyn on thursday (02/18) Renally adjust colchicine to 0.3 mg p.o. daily still has significant left leg pain. Tramadol 50 mg by q4h PRN for moderate pain Dilaudid 0.25 mg IV q3h PRN for severe pain hypotension episode-metoprolol being held added midodrine for BP support ESRD on peritoneal dialysis/failure of AV fistula/hypertension- spoke with Dr. Bragg; nephrology plan for PD in the evening Continue usual medications of cholecalciferol, Cinacalcet, Triphrocaps her metoprolol being held given hypotension furosemide, potassium chloride, Plavix, Diabetes mellitus- Change insulin degludec from 30 units subcu at bedtime glargine 20 units subcu at bedtime Placed on Accu-Cheks with NovoLog SSI Depression/anxiety/insomnia- Continue zolpidem at bedtime, buspirone Hyperlipidemia- Hold rosuvastatin while on daptomycin Hypomagnesemia- Magnesium 1.6 on admission Allowed to be corrected through ED Anemia of chronic kidney disease- Hemoglobin 9.2 is in her usual range Left lower extremity superficial venous thrombosis- As noted on venous Doppler of 02/10/2025, with no DVT noted Not a candidate for anti-inflammatories unless we use steroids If becomes bothersome, could use local treatment such as heat Admission and Anticipated Discharge Date Admission Date: February 16, 2025 Subjective she's on IV zosyn and her pain is improving. still has hypotension, no dizziness, no lightheadness. 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 WEIGHT/BMI reviewed. GEN: non-toxic appearing; HEENT:AT/NC -Mouth and throat: MMM. Normal gums, muc jose j, palate,. Good dentition. NECK: Supple, with no masses. CV: RRR, no m/r/g. LUNGS: CTAB, no w/r/c. ABD: Soft, NT/ND, NBS, no masses or organomegaly. : N/A SKIN: + for skin ulcer on her right leg. MSK: left leg tenderness much improved; + for edema NEURO: AAOx3 Results & Data Results & Data Vital Signs (Past 12 Hours) Vital Signs Temp Pulse Pulse Resp BP Pulse Ox Pulse Ox 02/19/25 09:32 37.0 C 78 18 02/19/25 07:30 74 02/19/25 04:27 36.7 C 70 16 150/60 H 96 02/19/25 01:00 95 02/19/25 00:27 36.7 C 75 18 75/35 L 95 O2 Del Method O2 Del Method 02/19/25 09:32 02/19/25 07:30 02/19/25 04:27 Room Air 02/19/25 01:00 Room Air 02/19/25 00:27 Room Air PG Care Time/CCT Total # of Minutes Spent Total Time Spent with Patient: Total time spent is greater than 50% in coordination of care (as documented) at patient's floor/unit and/or counseling patient: Coding Level of Care Code 20859 SUB INP/OBS CARE 05/21MIN Diagnoses Cellulitis of left lower extremity from knee to ankle L03.116 MRSA infection A49.02 ESRD on peritoneal dialysis N18.6; Z99.2 Type 2 diabetes mellitus with obesity E11.69; E66.9 Time Spent (min) 20
--- NOTE | 2025-02-19 12:15 | Nephrology Progress Note ---
Date of Service February 19, 2025 Assessment & Plan (1) ESRD on peritoneal dialysis: Plan: * Attributed to DKD and hypertension. Maintained on PD. * Outpatient Rx: NCCPD 5 x 2.5 L, 90 min dwell, 1000 ml last fill. EDW 78 kg * Volume status is acceptable. Electrolytes normal. * Plan to continue with NCCPD with treatment tonight. * Diuretic held due to low BP and intravascular depletion. * PD ordered with 1.5% dextrose tonight. * Maintain a renal diet and document I/O's. * Sensipar and Calcitriol continued per home Rx. * Daily BMP. (2) Anemia: Plan: * Epogen 10,000 units SQ x1 provided 02/17. * Iron stores acceptable. (3) Cellulitis: Plan: * Remains on Zosyn and daptomycin. * Monitor CK while on daptomycin. (4) Left leg pain: Plan: * Remains on colchicine for possible gout flare involving the left ankle. * Hydromorphone PRN. Admission and Anticipated Discharge Date Admission Date: February 16, 2025 Subjective No acute events overnight. Left ankle pain persists. No fevers or chills. Cellulitis improving. Appetite poor. Margaux tolerated PD well. No complications with treatment. Some confusion reported overnight and this AM. Karis reports difficulty sleeping. She takes Zolpidem for insomnia. BP improved remains on stable dose midodrine. No headaches. No chest pains. Review of Systems Review of Systems: All systems reviewed & are unremarkable except as noted in HPI & below Physical Exam Constitutional: no acute distress Eyes: + anicteric sclerae ENMT: external ear and nose normal, oropharynx normal Neck: normal visual inspection and trachea midline Respiratory: normal respiratory effort Cardiovascular: Rate/Rhythm: regular rate Extremities: + AV fistula Gastrointestinal (Abdomen): Percussion/Palpation: abdomen soft; abdomen nontender Skin: + erythema (R calf) Neurologic: Motor/Sensory: no tremor and no asterixis Psychiatric: Orientation: alert and oriented x 3 Results & Data Vital Signs (Past 12 Hours) Vital Signs Temp Pulse Pulse Resp BP Pulse Ox Pulse Ox 02/19/25 11:44 36.2 C L 87 116/46 L 99 02/19/25 09:32 37.0 C 78 18 02/19/25 08:00 02/19/25 07:30 74 02/19/25 04:27 36.7 C 70 16 150/60 H 96 02/19/25 01:00 95 02/19/25 00:27 36.7 C 75 18 75/35 L 95 O2 Del Method O2 Del Method 02/19/25 11:44 Room Air 02/19/25 09:32 02/19/25 08:00 Room Air 02/19/25 07:30 02/19/25 04:27 Room Air 02/19/25 01:00 Room Air 02/19/25 00:27 Room Air Laboratory Results Laboratory Results - last 24 hr 02/18/25 02/18/25 02/18/25 06:23 16:07 20:30 WBC RBC Hgb Hct MCV MCH MCHC RDW Std Deviation RDW Coeff of Poornima Plt Count MPV Immature Gran % (Auto) Neut % (Auto) Lymph % (Auto) Sunflower % (Auto) Eos % (Auto) Baso % (Auto) Neut # (Auto) Lymph # (Auto) Sunflower # (Auto) Eos # (Auto) Baso # (Auto) Immature Gran # (Auto) Sodium Potassium Chloride Carbon Dioxide Anion Gap BUN Creatinine Est Cr Clr Drug Dosing eGFR BUN/Creatinine Ratio Glucose POC Glucose 219 H 304 H* Calcium Magnesium Iron 46 Total Bilirubin AST ALT Alkaline Phosphatase Total Protein Albumin Globulin Albumin/Globulin Ratio 02/19/25 02/19/25 02/19/25 07:33 07:56 11:09 WBC 8.81 RBC 3.08 L Hgb 10.5 L Hct 30.9 L MCV 100.3 H MCH 34.1 H MCHC 34.0 RDW Std Deviation 52.5 H RDW Coeff of Poornima 14.3 Plt Count 252 MPV 10.6 Immature Gran % (Auto) 0.8 Neut % (Auto) 70.5 Lymph % (Auto) 15.6 Sunflower % (Auto) 7.2 Eos % (Auto) 5.1 Baso % (Auto) 0.8 Neut # (Auto) 6.22 Lymph # (Auto) 1.37 Sunflower # (Auto) 0.63 H Eos # (Auto) 0.45 Baso # (Auto) 0.07 Immature Gran # (Auto) 0.07 Sodium 130 L Potassium 4.8 Chloride 94 L Carbon Dioxide 26 Anion Gap 10 BUN 40 H Creatinine 7.11 H* Est Cr Clr Drug Dosing 6.9 eGFR 5.55 BUN/Creatinine Ratio 5.6 L Glucose 233 H POC Glucose 232 H 128 H Calcium 8.7 Magnesium 1.6 L Iron Total Bilirubin 0.6 AST 51 H ALT 33 Alkaline Phosphatase 97 Total Protein 5.6 L Albumin 2.2 L Globulin 3.4 Albumin/Globulin Ratio 0.6 L PG Care Time/CCT Total # of Minutes Spent Total Time Spent with Patient: Total time spent is greater than 50% in coordination of care (as documented) at patient's floor/unit and/or counseling patient: Coding Level of Care Code 31112 SUB INP/OBS CARE 3/50MIN Diagnoses ESRD on peritoneal dialysis N18.6; Z99.2 Anemia D64.9 Anemia type: unspecified type Cellulitis L03.116 Laterality: left Site of cellulitis: extremity Site of cellulitis of extremity: lower extremity Left leg pain M79.605 (2) Anemia Anemia type: unspecified type Qualified Code(s): D64.9 - Anemia, unspecified (3) Cellulitis Laterality: left Site of cellulitis: extremity Site of cellulitis of extremity: lower extremity Qualified Code(s): L03.116 - Cellulitis of left lower limb
--- NOTE | 2025-02-19 17:20 | Magnetic Resonance Report ---
EXAM: MR lower leg LT wo con CLINICAL HISTORY: left leg pain, r/o osteomyelitis, TECHNIQUE: Multiplanar, multi-echo MRI of the left tibia and fibula was performed without administration of intravenous contrast. COMPARISON: None. FINDINGS: Bones: There is normal alignment of the tibia and fibula. No fractures or dislocations are identified. No lytic or sclerotic lesions are present. There is no bone marrow edema or contusion. Joints: A cystic fluid collection is seen in the upper medial aspect of the leg, measuring approximately 17x11 mm. Grewal's cyst versus ganglion cyst. Osteoarthritis of the knee joint is present. Muscles: The muscles of the leg demonstrate patchy high STIR/T2 signal. Tendons and Ligaments: The major tendons and ligaments around the tibia and fibula are intact and demonstrate normal appearance. There is no evidence of tendinopathy, tendon tears, or ligamentous injury. Neurovascular Structures: The visualized neurovascular structures demonstrate normal appearance. There is no evidence of compression or abnormal signal changes. Soft Tissues: Diffuse subcutaneous edema and thickening are seen mainly in the upper medial aspect of the leg. IMPRESSION: 1. No signs of osteomyelitis. 2. Diffuse subcutaneous edema and thickening is seen mainly in the upper medial aspect of the leg, could be cellulitis. 3. A cystic fluid collection is seen in the upper medial aspect of the leg, measuring approximately 17x11 mm. Grewal's cyst versus ganglion cyst. 4. Osteoarthritis of the knee joint is present. 5. The muscles of the leg demonstrate patchy high STIR/T2 signal, myositis/muscle edema. Electronically signed by Abran Adams 02-19-2025 5:13 PM
--- NOTE | 2025-02-19 17:24 | Magnetic Resonance Report ---
EXAM: MR foot LT w/o con CLINICAL HISTORY: left ankle pain TECHNIQUE: MRI of the left foot was performed without intravenous contrast administration. Sequences obtained include sagittal T1-weighted, sagittal T2-weighted, coronal T1-weighted, coronal T2-weighted, axial T1-weighted, and axial T2-weighted images. COMPARISON: Comparison is made with prior plain X-ray of the ankle dated 02/17/2025. FINDINGS: Bone: A focus of high signal is seen in the subarticular surface of the medial cuneiform bone (arrow). Osteoarthritis of the first metatarsophalangeal joint is seen, with osteophytes of the articular surfaces. Tendons: Normal MRI appearance of the scanned compartmental longitudinal tendons. Muscles: The intrinsic plantar musculature of the foot shows high STIR/T2 signal. The visualized neurovascular structures do not reveal any obvious abnormality. Transverse and longitudinal arches of the foot are well maintained. Normal MRI appearance of the plantar fascia with no definite current MRI evidence to suggest plantar fasciitis. Soft Tissue: Diffuse soft tissue thickening and edema is seen, more on the plantar aspect. Irregular thickening of the plantar fascia is seen. IMPRESSION: 1. A focus of high signal is seen in the subarticular surface of the medial cuneiform bone (arrow), which can be related to marrow edema/osteochondral cyst correlating clinically; otherwise, no evidence of acute osteomyelitis. 2. Osteoarthritis of the first metatarsophalangeal joint is seen. 3. The intrinsic plantar musculature of the foot is edematous, which could be due to infection. 4. Diffuse soft tissue thickening and edema is seen, more on the plantar aspect, likely due to infection. 5. 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 Electronically signed by Abran Adams 02-19-2025 5:18 PM
[2025-02-19] MEDS: ONDANSETRON INJ 2 MG/ML 2 ML VIAL IV PRN (19:29)
[2025-02-19 20:43] LABS: Appearance Urine Turbid (Clear); Bacteria Urine Automated 3+ (None Seen); Epithelial Cell Urine Auto >20 /hpf (0-2); Glucose Urine UA Trace (Negative); RBC Urine Automated >20 /hpf (0-2); WBC Urine Automated >50 /hpf (0-5)
[2025-02-19] MEDS: ACETAMINOPHEN 325 MG TAB PO PRN (22:02)
[2025-02-20 06:58] LABS: Hematocrit (blood only) 26.2 % (37.0-47.0); Hemoglobin 8.6 g/dl (12.0-16.0); Mean Corpuscular Hemoglobin 33.3 pg (25.0-34.0); Mean Corpuscular Volume 101.6 fL (80.0-100.0); Platelet Count 220 K/uL (130-400); RDW Standard Deviation 52.5 fL (36.4-46.3); Red Blood Count 2.58 M/uL (4.20-5.40); White Blood Count 9.10 K/ul (4.8-10.8)
[2025-02-20 07:15] LABS: Magnesium 1.5 mg/dl (1.7-2.4)
[2025-02-20 07:30] LABS: Thyroid Stimulating Hormone 2.637 uIu/ml (0.300-4.500)
--- NOTE | 2025-02-20 09:55 | Hospitalist Progress Note ---
Date of Service February 20, 2025 Assessment & Plan (1) Cellulitis of left lower extremity from knee to ankle: (2) Dialysis patient: (3) Ambulatory dysfunction: Plan 1) Cellulitis of left lower extremity from knee to ankle: (2) MRSA infection: (3) ESRD on peritoneal dialysis: (4) Type 2 diabetes mellitus with obesity: Plan Karis Guthrie 74-year-old female with a PMH ESRD on peritoneal dialysis, AV fistula malfunction, MRSA infection, diabetes mellitus, anemia, ambulatory dysfunction, chronic venous insufficiency, history of pressure ulcers in buttock and coccygeal region, history of venous ulcers of bilateral lower extremities, gout, she's following with wound care center for her lower extremity wound and pressure ulcer she's has multiple near fall episode at home. She been left lower extremity swelling, erythema and worsening pain of the left lower extremity including ankle. She had undergone a venous Doppler of left lower extremity, which did show superficial venous thrombus, but no deep venous thrombosis She has also been following with orthopedic surgery for a left Grewal's cyst. went to ER on 02/16, after having the pain in her left leg progressing to the point that she can no longer walk. She has not fallen, but has almost fallen a number of occasions. In the emergency department this evening, she was given fentanyl 50 mcg IV with only minimal improvement in pain, and was started on cefepime 2 g IV. Chest x-ray was ordered, and it was negative. she was on cefepime 2g IV for left leg celllulitis and daptomcyin she was switched to zosyn on 02/18 (thursday), and pain improving. Cellulitis of left lower extremity/presumptive gout flare left ankle- superficial thrombus, hx of MRSA infection. her MRI found sub-Q edema in the upper medial aspect of her leg. also found cystis fluid collection in the upper medial aspect of the leg ID was consulted. switched to unasyn c/w daptomycin IV 550 mg every 24 hours Renally adjust colchicine to 0.3 mg p.o. daily she still has pain on her LEFT ankle her left leg pain is improving slowly Tramadol 50 mg by q4h PRN for moderate pain Dilaudid 0.25 mg IV q3h PRN for severe pain deconditioning; await PT and OT evaluation left ankle pain foot MRI on 02/19 found high signal in the medial cunefirom bone. hypotension episode-metoprolol being held added midodrine for BP support ESRD on peritoneal dialysis/failure of AV fistula/hypertension- spoke with Dr. Bragg; nephrology plan for PD in the evening Continue usual medications of cholecalciferol, Cinacalcet, Triphrocaps her metoprolol being held given hypotension furosemide, potassium chloride, Plavix, Diabetes mellitus- Change insulin degludec from 30 units subcu at bedtime glargine 20 units subcu at bedtime Placed on Accu-Cheks with NovoLog SSI Depression/anxiety/insomnia- Continue zolpidem at bedtime, buspirone Hyperlipidemia- Hold rosuvastatin while on daptomycin Hypomagnesemia- Magnesium 1.6 on admission Allowed to be corrected through ED Anemia of chronic kidney disease- Hemoglobin 9.2 is in her usual range Left lower extremity superficial venous thrombosis- As noted on venous Doppler of 02/10/2025, with no DVT noted Not a candidate for anti-inflammatories unless we use steroids If becomes bothersome, could use local treatment such as heat Admission and Anticipated Discharge Date Admission Date: February 16, 2025 Subjective her LEFT leg pain improving however, she's continue to has right ankle pain. she will need ongoing IV zosyn. in addition, need PT/OT evaluation her brother, from [place], is visiting her today now her BP is improving, will dc midodrine Review of Systems Review of Systems: Constitutional: no fever; no chill Cardiovascular: No Chest Pain, No SOB, No PND, No Dyspnea on Exertion, No Orthopnea, No Claudication, No Edema, No Palpitations Respiratory: No Cough, No Sputum, No Wheezing, No Smoke Exposure, No Dyspnea Gastrointestinal: No Nausea, No Vomiting, No Diarrhea, No Constipation, No Pain, No Heartburn, No Anorexia, No Dysphagia, No Hematochezia, No Melena, No Flatulence, No Jaundice Musculoskeletal: + for left leg pain, left ankle pain Skin: + for chronic ulcer on the right leg and gluteal Endocrine: No Polyuria, No Polydipsia, No Temperature Intolerance Physical Exam Physical Exam: VITALS: Reviewed. WEIGHT/BMI reviewed. GEN: Healthy appearing, well-developed, NAD. HEENT -Head: NC/AT; -Mouth and throat: MMM. Normal gums, muc jose j, palate,. Good dentition. NECK: Supple, with no masses. CV: RRR, no m/r/g. LUNGS: CTAB, no w/r/c. ABD: Soft, NT/ND, NBS, no masses or organomegaly. : N/A SKIN: firmness in her left lower extremity; edema MSK: edema NEURO: AAox3 Results & Data Results & Data Vital Signs (Past 12 Hours) Vital Signs Temp Pulse Pulse Resp BP Pulse Ox O2 Del Method 02/20/25 08:13 Room Air 02/20/25 08:05 36.4 C L 75 16 133/57 L 100 Room Air 02/20/25 07:08 71 02/20/25 03:24 37 C 18 129/64 95 Room Air 02/20/25 00:02 157/77 H 02/19/25 23:44 36.5 C 74 18 168/84 H 96 Room Air 02/19/25 22:01 80 Laboratory Results Laboratory Results - last 72 hr 02/17/25 02/17/25 02/17/25 07:58 10:42 16:05 WBC RBC Hgb Hct MCV MCH MCHC RDW Std Deviation RDW Coeff of Poornima Plt Count MPV Immature Gran % (Auto) Neut % (Auto) Lymph % (Auto) [place] % (Auto) Eos % (Auto) Baso % (Auto) Neut # (Auto) Lymph # (Auto) [place] # (Auto) Eos # (Auto) Baso # (Auto) Immature Gran # (Auto) Sodium Potassium Chloride Carbon Dioxide Anion Gap BUN Creatinine Est Cr Clr Drug Dosing eGFR BUN/Creatinine Ratio Glucose POC Glucose 86 99 Estimat Average Glucose 163 Hemoglobin A1c 7.3 H Lactate Calcium Magnesium Iron TIBC Transferrin Transferrin % Sat Ferritin Total Bilirubin AST ALT Alkaline Phosphatase Total Protein Albumin Globulin Albumin/Globulin Ratio TSH Urine Color Urine Appearance Urine pH Ur Specific [place] Urine Protein Urine Glucose (UA) Urine Ketones Urine Blood Urine Nitrite Urine Bilirubin Urine Urobilinogen Ur Leukocyte Esterase Urine WBC (Auto) Urine RBC (Auto) U Hyaline Cast (Auto) U Epithel Cells (Auto) Urine Bacteria (Auto) Urine Yeast Urine Comment 02/17/25 02/18/25 02/18/25 20:18 06:23 07:22 WBC 7.41 RBC 2.99 L Hgb 10.0 L Hct 30.9 L MCV 103.3 H MCH 33.4 MCHC 32.4 RDW Std Deviation 54.9 H RDW Coeff of Poornima 14.6 H Plt Count 214 MPV 10.5 Immature Gran % (Auto) 0.5 Neut % (Auto) 71.0 Lymph % (Auto) 15.7 [place] % (Auto) 8.4 Eos % (Auto) 3.6 Baso % (Auto) 0.8 Neut # (Auto) 5.26 Lymph # (Auto) 1.16 L [place] # (Auto) 0.62 H Eos # (Auto) 0.27 Baso # (Auto) 0.06 Immature Gran # (Auto) 0.04 Sodium 129 L Potassium 4.8 Chloride 95 L Carbon Dioxide 23 Anion Gap 11 BUN 40 H Creatinine 7.40 H* D Est Cr Clr Drug Dosing 6.5 eGFR 5.29 BUN/Creatinine Ratio 5.4 L Glucose 293 H POC Glucose 207 H 282 H Estimat Average Glucose Hemoglobin A1c Lactate Calcium 8.7 Magnesium 1.7 Iron 46 TIBC 151 L Transferrin 108 L Transferrin % Sat 30 Ferritin 1195.7 H Total Bilirubin 0.5 AST 35 ALT 19 Alkaline Phosphatase 86 Total Protein 5.6 L Albumin 2.3 L Globulin 3.3 Albumin/Globulin Ratio 0.7 L TSH Urine Color Urine Appearance Urine pH Ur Specific [place] Urine Protein Urine Glucose (UA) Urine Ketones Urine Blood Urine Nitrite Urine Bilirubin Urine Urobilinogen Ur Leukocyte Esterase Urine WBC (Auto) Urine RBC (Auto) U Hyaline Cast (Auto) U Epithel Cells (Auto) Urine Bacteria (Auto) Urine Yeast Urine Comment 02/18/25 02/18/25 02/18/25 08:47 09:55 10:48 WBC RBC Hgb Hct MCV MCH MCHC RDW Std Deviation RDW Coeff of Poornima Plt Count MPV Immature Gran % (Auto) Neut % (Auto) Lymph % (Auto) [place] % (Auto) Eos % (Auto) Baso % (Auto) Neut # (Auto) Lymph # (Auto) [place] # (Auto) Eos # (Auto) Baso # (Auto) Immature Gran # (Auto) Sodium Potassium Chloride Carbon Dioxide Anion Gap BUN Creatinine Est Cr Clr Drug Dosing eGFR BUN/Creatinine Ratio Glucose POC Glucose 230 H Estimat Average Glucose Hemoglobin A1c Lactate 2.2 H* 2.3 H* Calcium Magnesium Iron TIBC Transferrin Transferrin % Sat Ferritin Total Bilirubin AST ALT Alkaline Phosphatase Total Protein Albumin Globulin Albumin/Globulin Ratio TSH Urine Color Urine Appearance Urine pH Ur Specific [place] Urine Protein Urine Glucose (UA) Urine Ketones Urine Blood Urine Nitrite Urine Bilirubin Urine Urobilinogen Ur Leukocyte Esterase Urine WBC (Auto) Urine RBC (Auto) U Hyaline Cast (Auto) U Epithel Cells (Auto) Urine Bacteria (Auto) Urine Yeast Urine Comment 02/18/25 02/18/25 02/18/25 11:53 16:07 20:30 WBC RBC Hgb Hct MCV MCH MCHC RDW Std Deviation RDW Coeff of Poornima Plt Count MPV Immature Gran % (Auto) Neut % (Auto) Lymph % (Auto) [place] % (Auto) Eos % (Auto) Baso % (Auto) Neut # (Auto) Lymph # (Auto) [place] # (Auto) Eos # (Auto) Baso # (Auto) Immature Gran # (Auto) Sodium Potassium Chloride Carbon Dioxide Anion Gap BUN Creatinine Est Cr Clr Drug Dosing eGFR BUN/Creatinine Ratio Glucose POC Glucose 196 H 219 H 304 H* Estimat Average Glucose Hemoglobin A1c Lactate Calcium Magnesium Iron TIBC Transferrin Transferrin % Sat Ferritin Total Bilirubin AST ALT Alkaline Phosphatase Total Protein Albumin Globulin Albumin/Globulin Ratio TSH Urine Color Urine Appearance Urine pH Ur Specific [place] Urine Protein Urine Glucose (UA) Urine Ketones Urine Blood Urine Nitrite Urine Bilirubin Urine Urobilinogen Ur Leukocyte Esterase Urine WBC (Auto) Urine RBC (Auto) U Hyaline Cast (Auto) U Epithel Cells (Auto) Urine Bacteria (Auto) Urine Yeast Urine Comment 02/19/25 02/19/25 02/19/25 07:33 07:56 11:09 WBC 8.81 RBC 3.08 L Hgb 10.5 L Hct 30.9 L MCV 100.3 H MCH 34.1 H MCHC 34.0 RDW Std Deviation 52.5 H RDW Coeff of Poornima 14.3 Plt Count 252 MPV 10.6 Immature Gran % (Auto) 0.8 Neut % (Auto) 70.5 Lymph % (Auto) 15.6 [place] % (Auto) 7.2 Eos % (Auto) 5.1 Baso % (Auto) 0.8 Neut # (Auto) 6.22 Lymph # (Auto) 1.37 [place] # (Auto) 0.63 H Eos # (Auto) 0.45 Baso # (Auto) 0.07 Immature Gran # (Auto) 0.07 Sodium 130 L Potassium 4.8 Chloride 94 L Carbon Dioxide 26 Anion Gap 10 BUN 40 H Creatinine 7.11 H* Est Cr Clr Drug Dosing 6.9 eGFR 5.55 BUN/Creatinine Ratio 5.6 L Glucose 233 H POC Glucose 232 H 128 H Estimat Average Glucose Hemoglobin A1c Lactate Calcium 8.7 Magnesium 1.6 L Iron TIBC Transferrin Transferrin % Sat Ferritin Total Bilirubin 0.6 AST 51 H ALT 33 Alkaline Phosphatase 97 Total Protein 5.6 L Albumin 2.2 L Globulin 3.4 Albumin/Globulin Ratio 0.6 L TSH Urine Color Urine Appearance Urine pH Ur Specific [place] Urine Protein Urine Glucose (UA) Urine Ketones Urine Blood Urine Nitrite Urine Bilirubin Urine Urobilinogen Ur Leukocyte Esterase Urine WBC (Auto) Urine RBC (Auto) U Hyaline Cast (Auto) U Epithel Cells (Auto) Urine Bacteria (Auto) Urine Yeast Urine Comment 02/19/25 02/19/25 02/19/25 16:14 20:37 Unknown WBC RBC Hgb Hct MCV MCH MCHC RDW Std Deviation RDW Coeff of Poornima Plt Count MPV Immature Gran % (Auto) Neut % (Auto) Lymph % (Auto) [place] % (Auto) Eos % (Auto) Baso % (Auto) Neut # (Auto) Lymph # (Auto) [place] # (Auto) Eos # (Auto) Baso # (Auto) Immature Gran # (Auto) Sodium Potassium Chloride Carbon Dioxide Anion Gap BUN Creatinine Est Cr Clr Drug Dosing eGFR BUN/Creatinine Ratio Glucose POC Glucose 105 H 296 H Estimat Average Glucose Hemoglobin A1c Lactate Calcium Magnesium Iron TIBC Transferrin Transferrin % Sat Ferritin Total Bilirubin AST ALT Alkaline Phosphatase Total Protein Albumin Globulin Albumin/Globulin Ratio TSH Urine Color Yellow Urine Appearance Turbid A Urine pH 7.5 Ur Specific [place] 1.011 Urine Protein 3+ H Urine Glucose (UA) Trace H Urine Ketones Negative Urine Blood 3+ H Urine Nitrite Negative Urine Bilirubin Negative Urine Urobilinogen Negative Ur Leukocyte Esterase 3+ H Urine WBC (Auto) >50 H Urine RBC (Auto) >20 H U Hyaline Cast (Auto) 6-10 H U Epithel Cells (Auto) >20 H Urine Bacteria (Auto) 3+ H Urine Yeast Present A Urine Comment 02/20/25 02/20/25 05:53 07:03 WBC 9.10 RBC 2.58 L Hgb 8.6 L Hct 26.2 L MCV 101.6 H MCH 33.3 MCHC 32.8 RDW Std Deviation 52.5 H RDW Coeff of Poornima 14.5 Plt Count 220 MPV 10.7 Immature Gran % (Auto) Neut % (Auto) Lymph % (Auto) [place] % (Auto) Eos % (Auto) Baso % (Auto) Neut # (Auto) Lymph # (Auto) [place] # (Auto) Eos # (Auto) Baso # (Auto) Immature Gran # (Auto) Sodium Potassium Chloride Carbon Dioxide Anion Gap BUN Creatinine Est Cr Clr Drug Dosing eGFR BUN/Creatinine Ratio Glucose POC Glucose 188 H Estimat Average Glucose Hemoglobin A1c Lactate Calcium Magnesium 1.5 L Iron TIBC Transferrin Transferrin % Sat Ferritin Total Bilirubin AST ALT Alkaline Phosphatase Total Protein Albumin Globulin Albumin/Globulin Ratio TSH 2.637 Urine Color Urine Appearance Urine pH Ur Specific [place] Urine Protein Urine Glucose (UA) Urine Ketones Urine Blood Urine Nitrite Urine Bilirubin Urine Urobilinogen Ur Leukocyte Esterase Urine WBC (Auto) Urine RBC (Auto) U Hyaline Cast (Auto) U Epithel Cells (Auto) Urine Bacteria (Auto) Urine Yeast Urine Comment Medications Administered Current Inpatient Medications Acetaminophen (Acetaminophen 325 Mg Tab) 650 mg PO Q4H PRN PRN Reason: Pain or Fever Stop: 03/18/25 23:19 Last Admin: 02/19/25 22:02 Dose: 650 mg Buspirone HCl (Buspirone 7.5 Mg Tab) 7.5 mg PO QPM EARNESTINE Stop: 03/19/25 20:59 Last Admin: 02/19/25 21:43 Dose: 7.5 mg Calcitriol (Calcitriol 0.25 Mcg Capsule) 0.5 mcg PO QPM EARNESTINE Stop: 03/19/25 20:59 Last Admin: 02/19/25 21:43 Dose: 0.5 mcg Cinacalcet (Cinacalcet Hcl 30 Mg Tab) 30 mg PO DAILY EARNESTINE Stop: 03/19/25 08:59 Last Admin: 02/20/25 08:28 Dose: 30 mg Clopidogrel Bisulfate (Clopidogrel Bisulfate 75 Mg Tab) 75 mg PO QPM EARNESTINE Stop: 03/19/25 20:59 Last Admin: 02/19/25 21:43 Dose: 75 mg Colchicine (Colchicine 0.6 Mg Tab) 0.3 mg PO DAILY PRN PRN Reason: gout Stop: 03/19/25 08:59 Cyanocobalamin (Cyanocobalamin (B-12) 500 Mcg Tablet) 1,000 mcg PO QPM EARNESTINE Stop: 03/19/25 20:59 Last Admin: 02/19/25 21:43 Dose: 1,000 mcg Dextrose (Dextrose 50% 50 Ml Syringe) 25 - 50 ml IV UD PRN; Protocol PRN Reason: Hypoglycemia Protocol Stop: 03/18/25 23:19 Furosemide (Furosemide 80 Mg Tab) 80 mg PO BID EARNESTINE Stop: 03/19/25 08:59 Last Admin: 02/17/25 20:43 Dose: 80 mg Gentamicin Sulfate (Gentamicin Sulfate 0.1% Cr 15 Gm Tube) 1 appln EXT DAILY EARNESTINE Stop: 02/27/25 08:59 Last Admin: 02/20/25 08:28 Dose: 1 appln Glucagon (Glucagon For Inj 1 Mg Vial) 1 mg SQ UD PRN; Protocol PRN Reason: Hypoglycemia Protocol Stop: 03/18/25 23:19 Glucose (Glucose 40% Gel 15 Gm Tube) 15 - 30 gm PO UD PRN; Protocol PRN Reason: Hypoglycemia Protocol Stop: 03/18/25 23:19 Glucose (Glucose 10 Tab/Tube) 4 - 8 tab PO UD PRN; Protocol PRN Reason: Hypoglycemia Protocol Stop: 03/18/25 23:19 Heparin Sodium (Porcine) (Heparin Sod 5,000 Unit/0.5 Ml Vial) 5,000 units SQ Q12 EARNESTINE Stop: 03/19/25 08:59 Last Admin: 02/20/25 08:26 Dose: Not Given Hydralazine HCl (Hydralazine Hcl 20 Mg/Ml Vial) 10 mg IV Q4H PRN PRN Reason: SBP above 160 Stop: 03/18/25 22:04 Hydromorphone HCl (Hydromorphone Inj 0.5 Mg/0.5 Ml Syr) 0.25 mg IV Q3H PRN PRN Reason: Severe Pain (Scale 7, 8, 9,10) Stop: 03/03/25 00:49 Last Admin: 02/19/25 13:14 Dose: 0.25 mg Daptomycin 500 mg/ Syringe 10 mls @ 5 mls/min IV Q48H EARNESTINE; Protocol Stop: 02/24/25 04:59 Last Admin: 02/19/25 05:37 Dose: 5 mls/min Piperacillin Sod/Tazobactam Sod (Zosyn) 4.5 gm in 100 mls @ 25 mls/hr IV Q12H [facility]; Protocol Stop: 02/25/25 21:59 Last Infusion: 02/20/25 02:38 Dose: Infused Insulin Aspart (Insulin Aspart Per Unit Charge) 0 units SC ACHS [facility] Stop: 03/19/25 07:29 Last Admin: 02/20/25 08:33 Dose: 6 units Insulin Glargine (Lantus Per Unit Charge) 20 units SQ HS [facility] Stop: 03/19/25 20:59 Last Admin: 02/19/25 21:44 Dose: 20 units Metoprolol Succinate (Metoprolol Succ 25mg Ext Rel Tab) 25 mg PO QPM [facility] Stop: 03/19/25 20:59 Last Admin: 02/17/25 20:43 Dose: 25 mg Miscellaneous (Carbohydrates For Hypoglycemia ) 15 - 30 gm PO UD PRN PRN Reason: Hypoglycemia Protocol Stop: 03/18/25 23:19 Ondansetron HCl (Ondansetron Inj 2 Mg/Ml 2 Ml Vial) 4 mg IV Q6H PRN PRN Reason: Nausea Stop: 03/18/25 23:19 Last Admin: 02/19/25 19:29 Dose: 4 mg Potassium Chloride (Potassium Chloride 10 Meq Tabcr) 40 meq PO QPM EARNESTINE Stop: 03/19/25 20:59 Last Admin: 02/19/25 21:45 Dose: 40 meq Tramadol HCl (Tramadol Hcl 50 Mg Tablet) 50 mg PO Q4H PRN PRN Reason: Moderate Pain (Scale 4, 5, 6) Stop: 03/18/25 22:02 Last Admin: 02/19/25 11:30 Dose: 50 mg Vitamin D (Cholecalciferol 125 Mcg (5,000 Units) Tab) 62.5 mcg PO QPM [facility] Stop: 03/19/25 20:59 Last Admin: 02/19/25 21:43 Dose: 62.5 mcg Zolpidem Tartrate (Zolpidem Tartrate 5 Mg Tab) 10 mg PO HS [facility] Stop: 03/19/25 20:59 Last Admin: 02/19/25 21:45 Dose: 10 mg PG Care Time/CCT Total # of Minutes Spent Total Time Spent with Patient: Total time spent is greater than 50% in coordination of care (as documented) at patient's floor/unit and/or counseling patient: Coding Level of Care Code 04624 SUB INP/OBS CARE 05/21MIN Diagnoses Cellulitis of left lower extremity from knee to ankle L03.116 Dialysis patient Z99.2 Ambulatory dysfunction R26.2 Time Spent (min) 25
--- NOTE | 2025-02-20 10:05 | Nephrology Progress Note ---
Date of Service February 20, 2025 Assessment & Plan (1) ESRD (end stage renal disease): (2) Hypertension: (3) Anemia: (4) Cellulitis of left lower extremity from knee to ankle: Plan 73-year-old female with end-stage kidney disease on PD (EDW 78kg). Admitted with left lower extremity pain and cellulitis, initially started on cefepime and daptomycin but now switched to daptomycin and Zosyn after having it. Of confusion which is most likely medication related. Clinically she improved and seems to be at her baseline without any confusion. Yesterday she was noted to be volume depleted with hypotension and switched to Delflex 1.5% with bradycardia on dialysis. Ultrafiltration slightly dropped to 750 mL but volume status and blood pressure reasonable. Has h/o chronic lower extremity venous insufficiency s/p venous ablation 11/23/24. Hemoglobin low. Had hemodialysis Thursday. Overall doing well, clinically stable. --Will continue on Delflex 1.5% tonight if any concern for volume overload or further drop in UF, consider changing to 1.5% 2.5% alternate starting tomorrow. --Epogen 47271 units x 1 dose today --physical therapy. --continue calcitriol Admission and Anticipated Discharge Date Admission Date: February 16, 2025 Roman Dyson was seen and evaluated this morning. She reports otherwise feeling well but frustrated with repeated hospitalization. Continues to have some pain mainly in left heel area but there is slight improvement. Has been having dialysis overnight, yesterday had Delflex 1.5% and had ultrafiltration of around 750 mL,blood pressure improved, volume status acceptable. Electrolyte acceptable. Hemoglobin slightly dropped to 8.6. Review of Systems Review of Systems: Detailed review of system was done and pertinent positives and negatives are mentioned above. Physical Exam Constitutional: WD/WN, vitals as above no acute distress Respiratory: no respiratory distress Auscultation: lungs clear to auscultation bilaterally Cardiovascular: Rate/Rhythm: regular rate and regular rhythm Extremities: + AV fistula (with bruit, aneurysm); no edema Skin: + turgor decreased; no rashes Neurologic: no focal motor deficits Psychiatric: Orientation: alert and oriented x 3 Results & Data Vital Signs (Past 12 Hours) Vital Signs Temp Pulse Pulse Resp BP Pulse Ox O2 Del Method 02/20/25 08:13 Room Air 10/27/25 08:05 36.4 C L 75 16 133/57 L 100 Room Air 02/20/25 07:08 71 02/20/25 03:24 37 C 18 129/64 95 Room Air 02/20/25 00:02 157/77 H 02/19/25 23:44 36.5 C 74 18 168/84 H 96 Room Air 02/19/25 22:01 80 PG Care Time/CCT Total # of Minutes Spent Total Time Spent with Patient: Total time spent is greater than 50% in coordination of care (as documented) at patient's floor/unit and/or counseling patient: Coding Level of Care Code 61122 SUB INP/OBS CARE 3/50MIN Diagnoses ESRD (end stage renal disease) N18.6 Essential hypertension I10 Hypertension type: essential hypertension Anemia D64.9 Cellulitis of left lower extremity from knee to ankle L03.116 (2) Hypertension Hypertension type: essential hypertension Qualified Code(s): I10 - Essential (primary) hypertension
[2025-02-20] MEDS: EPOETIN ALFA 10,000 UNITS/ML VIAL SQ STA (12:13)
[2025-02-20] MEDS: FUROSEMIDE 20 MG TAB PO SCH (12:13)
[2025-02-20 14:37] LABS: Anion Gap 10.0 (3-11); Calcium 8.3 mg/dl (8.6-10.3); Carbon Dioxide 24.0 mmol/L (21-32); Chloride 94.0 mmol/L (98-107); Potassium 5.3 mmol/L (3.5-5.1); Sodium 128.0 mmol/L (136-145)
[2025-02-20 14:46] LABS: Blood Urea Nitrogen 39.0 mg/dl (6-23); Creatinine Clr Calc Pharmacy 6.9 ml/min; Glucose 225.0 mg/dl (70-99(Fasting))
--- NOTE | 2025-02-20 14:54 | Infectious Disease Consult ---
Date of Consultation February 20, 2025 Assessment & Plan (1) Cellulitis of left lower extremity from knee to ankle: (2) Left leg pain: Plan ID Problem List: # LLE SSTI # L ankle pain # ESRD on peritoneal dialysis # Type 2 DM Impression: Margaux Contreras is a 74-year-old woman with history of ESRD on PD, history of AV fistula malfunction, T2DM, history of sacral/coccyx pressure ulcers, chronic venous insufficiency, history of venous ulcers of bilateral lower extremities, gout, who presents to [facility] on 02/16/25 with worsening LLE swelling, erythema, and pain. ID is consulted for LLE SSTI. She was recently admitted to [facility] from 12/0712/09/24 for RLE wound and cellulitis. Wound Cx grew MSSA. She was initially on pip-tazo and daptomycin while inpatient, and transitioned to clindamycin 300 mg QID x 5 more days upon discharge. The patient been having left lower extremity swelling, erythema, and pain. She was seen at an outpatient visit by her PCP on 02/10/25 at which time she underwent LLE ultrasound that was negative for DVT, but did show superficial venous thrombus. She has also been following with orthopedic surgery for a left Grewal's cyst. Her LLE pain and swelling continued to progress, and she presented to the ED on 02/16. In the ED, afebrile, WBC 10.91. She was started on daptomycin and cefepime. 02/18 LLE/femur CT with edema, no definitive abscess or osteomyelitis; L knee effusion with Bakers cyst. 02/19 MRI LLE with edema c/w cellulitis; no e/o osteomyelitis, cystic fluid collection 17x11 mm in the upper medial LLE c/w Bakers cyst vs. ganglion cyst; high STIR/T2 signal intensity of leg muscles c/w myositis. 02/19 MRI L foot showed a focus of high signal in the subarticular surface of the medial cuneiform bone which can be from marrow edema/osteochondral cyst and otherwise without e/o acute osteomyelitis; edema of the plantar soft tissue including muscle c/f infection. Discussion Pt presenting with significant myositis of the LLE. Imaging without abscess or e/o osteomyelitis. This is most likely a bacterial process. Note prior wound Cx of the RLE from earlier this year with both MRSA (07/2024) and MSSA (08/2024 and 11/2024). BCx from 02/16 remain NGTD. Wound Cx from 02/13 are NG. Pt has had improvement on antibiotics, however continues to have L ankle pain. Note 02/19 MRI L foot showed a focus of high signal in the subarticular surface of the medial cuneiform bone which can be from marrow edema/osteochondral cyst and otherwise without e/o acute osteomyelitis. Continue to monitor L ankle, if persistent/increasing pain may consider reimaging and/or podiatry evaluation. Will continue empiric abx, can continue daptomycin and change to amp/sulbactam. If improving and discharging, anticipate possible transition to linezolid and amox-clav to complete an extended (14-day) course with close follow-up. Recommendations: - Continue IV daptomycin - Change to amp/sulbactam 3 g IV q12h (renally dosed) - If improving and discharging, anticipate possible transition to PO abx (linezolid 600 mg PO BID + amox-clav 500 mg PO q24h, renally dosed) to complete a 14-day course (through 03/02/25) - F/u 02/16 BCx until finalized to ensure remains negative - Continue to monitor L ankle, if persistent/increasing pain may consider reimaging and/or podiatry evaluation ID will continue to follow. Tamra Fields MD, S Infectious Diseases [facility] ID Connect direct line: [phone] Consultation Information This patient recommendation is based on a telemedicine consult request which was completed asynchronously through chart review and information provided by the primary physician. The patient was not seen or examined today. The evaluation is consultative in nature and all patient care and treatment decisions can either be accepted or rejected by the patient's primary hospital-based treating physician using their own independent medical judgment for their patient. [facility] [employer] contact information: Please call [facility] Connect Call Center . (Phone Number For Physician Use Only) Time Spent Reviewing Chart: 31+ minutes History of Present Illness Attending Physician: Markel Looney DO History of Present Illness Margaux Contreras is a 74-year-old woman with history of ESRD on PD, history of AV fistula malfunction, T2DM, history of sacral/coccyx pressure ulcers, chronic venous insufficiency, history of venous ulcers of bilateral lower extremities, gout, who presents to [facility] on 02/16/25 with worsening LLE swelling, erythema, and pain. ID is consulted for LLE SSTI. She was recently admitted to [facility] from 12/0712/09/24 for RLE wound and cellulitis. Wound Cx grew MSSA. She was initially on pip-tazo and daptomycin while inpatient, and transitioned to clindamycin 300 mg QID x 5 more days upon discharge. The patient been having left lower extremity swelling, erythema, and pain. She was seen at an outpatient visit by her PCP on 02/10/25 at which time she underwent LLE ultrasound that was negative for DVT, but did show superficial venous thrombus. She has also been following with orthopedic surgery for a left Grewal's cyst. Her LLE pain and swelling continued to progress, and she presented to the ED on 02/16. In the ED, afebrile, WBC 10.91. She was started on daptomycin and cefepime. 02/18 LLE/femur CT with edema, no definitive abscess or osteomyelitis; L knee effusion with Bakers cyst. 02/19 MRI LLE with edema c/w cellulitis; no e/o osteomyelitis, cystic fluid collection 17x11 mm in the upper medial LLE c/w Bakers cyst vs. ganglion cyst; high STIR/T2 signal intensity of leg muscles c/w myositis. 02/19 MRI L foot showed a focus of high signal in the subarticular surface of the medial cuneiform bone which can be from marrow melinda ma/osteochondral cyst and otherwise without e/o acute osteomyelitis; edema of the plantar soft tissue including muscle c/f infection. Allergies Allergy/AdvReac Type Severity Reaction Status Date / Time insect venom Allergy Intermediate Swelling Verified 02/14/25 17:07 adhesive tape Allergy Mild Rash Verified 02/14/25 17:07 pollen extracts Allergy Mild "Seasonal Verified 02/14/25 17:07 allergies" dulaglutide [From Trulicity] AdvReac Mild Constipation, Verified 02/14/25 17:07 vomiting Home Medications Medication Instructions Recorded Confirmed Type lancets (Accu-Chek Fastclix Lancet #50 ea 12/16/18 02/10/25 History Drum) mecobalamin (vitamin B12) 1,000 1,000 mcg PO QPM 09/13/20 02/14/25 History mcg chewable tablet (B12 Active) blood sugar diagnostic (Accu-Chek 10/15/21 02/10/25 History SmartView Test Strips) cholecalciferol (vitamin D3) 62.5 62.5 mcg PO QPM 06/06/22 02/14/25 History mcg (2,500 unit) capsule Walking Cane #1 ea 06/30/23 02/10/25 Rx triamcinolone acetonide 0.1 % 1 applic topical BID PRN skin 07/28/23 02/14/25 History topical ointment issues pen needle, diabetic 32 gauge x #100 ea 08/24/23 02/10/25 Rx 32" (BD Nicki 2nd Gen Pen Needle) insulin degludec 100 unit/mL (3 30 unit subcut HS 03/15/24 02/14/25 History mL) subcutaneous pen (Tresiba FlexTouch U-100 insulin) blood-glucose sensor (FreeStyle #2 ea 08/16/24 02/10/25 Rx Kvng 3 Plus Sensor device) gentamicin 0.1 % topical cream 1 applic topical UD 08/24/24 02/14/25 History vitamin B complex and vitamin C 1 cap PO QPM 08/24/24 02/14/25 History no.20-folic acid 1 mg capsule (Triphrocaps) clopidogrel 75 mg tablet 75 mg PO QPM 12/07/24 02/14/25 History furosemide 80 mg tablet 80 mg PO BID 12/07/24 02/14/25 History insulin aspart U-100 100 unit/mL 8 unit subcut AC 12/07/24 02/14/25 History (3 mL) subcutaneous pen (Novolog FlexPen U-100 Insulin aspart) potassium chloride 10 mEq 40 meq PO QPM 12/07/24 02/14/25 History tablet,extended release buspirone 7.5 mg tablet 7.5 mg PO QPM #0 tabs 12/09/24 02/14/25 Rx cinacalcet 30 mg tablet (Sensipar) 30 mg PO DAILY 01/10/25 02/14/25 History rosuvastatin 40 mg tablet (Crestor) 40 mg PO PM 01/27/25 02/14/25 History zolpidem 10 mg tablet 10 mg PO HS #30 tabs 10/07/25 10/21/25 Rx metoprolol succinate 25 mg 25 mg PO QPM #90 tabs 02/08/25 02/14/25 Rx tablet,extended release 24 hr calcitriol 0.25 mcg capsule 0.5 mcg PO QPM 02/14/25 02/14/25 History pregabalin 25 mg capsule (Lyrica) 25 mg PO .COMPLEX pain #90 caps 02/14/25 02/14/25 Rx Patient History Medical History Elevated troponin Hyponatremia Hypokalemia Generalized weakness Anxiety Associated dyspnea per pulmonology Fracture of hip, right, closed (04/20/24) right femoral intertrochanteric fracture with mild gapping from a fall Acute cholecystitis Heart failure with preserved ejection fraction CAD (coronary artery disease) Obesity Non-ST elevation CT (NSTEMI) Pulmonary edema Folate deficiency anemia Metabolic acidosis AV fistula right arm--per pt not currently using yet Periodontal pocket Carious teeth Sleep apnea Per 2009 polysomnography (per 02/2021 pulmonology note)- pt declined treatment or repeat study-NO DEVICE Diastolic CHF Chronic kidney disease, stage 4 (severe) Secondary hyperparathyroidism of renal origin History of DVT (deep vein thrombosis) Multiple "small" DVTs (25+ years ago, 6 years ago) Fibroids History of hypothyroidism HX-NO MEDS Sensorineural hearing loss (SNHL) of both ears Family history of colon cancer in mother Surgical History Status post-operative repair of hip fracture Hx laparoscopic cholecystectomy (01/28/24) Robotic Laparoscopic Cholecystectomy(Not Applicable) - [facility], , FACS History of coronary artery stent placement S/P arteriovenous (AV) fistula creation RIGHT arm 03/27/21 @ [facility] Dr. Subramanian History of dental surgery History of surgery on arm Right Arm basilic vein transposition 2nd stage @ [facility] Dr. Subramanian 06/10/21 History of colonoscopy Family History Mother Diabetes Renal cell cancer Heart disease Colorectal cancer Hypertension Brother Diabetes Renal cell cancer Heart disease Lung cancer Hypertension Gallbladder disease Father Prostate cancer Heart disease Hypertension Grandmother (Maternal) Colorectal cancer Aunt Diabetes Other Alzheimer disease No family history of adverse response to anesthesia Denies family history of Ovarian cancer Myocardial infarction Breast cancer Social History Smoking Status: Never smoker Second Hand Exposure: No; Do You Dip or Chew Tobacco: No; Hx Alcohol Use: No Hx Substance Use: No Preferred Language: Mohawk Communication Ability: Effective Visual Impairment: Limited Hearing Ability: Hard of Hearing Panel Coverer Required: No Beliefs That Will Affect Care: None marital status: Single Current Living Situation: Alone Current Living Situation Comment: has home health nursing current occupational status: retired current occupation: Retired How many Children do You have: 0 Feels Safe at Home: Yes Childhood Exposure to Second-Hand Smoke: No (very little ) Diet: diabetic caffeine: Yes (drinks iced tea every day, sometimes soda ) Dental Care, Regularly: Yes Physical Activity Frequency: 1-2 Times per Week Physical Activity Frequency Comment: weight training, walking Seatbelt Use: always Sunscreen Use: Yes (most times ) Assistive Devices: Walker and Wheelchair Physical Exam Physical Exam: Diagnostics: 02/19 MRI LLE 1. No signs of osteomyelitis. 2. Diffuse subcutaneous edema and thicke viktor is seen mainly in the upper medial aspect of the leg, could be cellulitis. 3. A cystic fluid collection is seen in the upper medial aspect of the leg, measuring approximately 17x11 mm. Rgewal's cyst versus ganglion cyst. 4. Osteoarthritis of the knee joint is p resent. 5. The muscles of the leg demonstrate pa tchy high STIR/T2 signal, myositis/muscle edema. 02/19 MRI L foot 1. A focus of high signal is seen in the subarticular surface of the medial cuneiform bone (arrow), which can be related to marrow edema/osteochondral cyst correlating clinically; otherwise, no evidence of acute osteomyelitis. 2. Osteoarthritis of the first metatarso phalangeal joint is seen. 3. The intrinsic plantar musculature of the foot is edematous, which could be due to infection. 4. Diffuse soft tissue thickening and ed sahil is seen, more on the plantar aspect, likely due to infection. 5. Irregular thickening of the plantar f ascia is seen; plantar fasciitis/fibromatosis is most likely. 02/[address] 1. Subcutaneous edema that may be due t o cellulitis 2. No definite abscess or osteomyelitis 02/[address] 1. No definite osteomyelitis or abscess 2. Subcutaneous edema that may be due t o cellulitis 3. Ascites with a peritoneal dialysis c atheter in place 4. Uterine leiomyomas 5. Mild osteoarthritis 6. Left knee effusion with a Grewal's cy st Micro Data: 02/19 UCx: pinpoint growth 02/16 BCx x2: NGTD 02/13 RLE wound Cx: NG prior micro 12/14 buttock wound Cx: GI linda 12/07 R foot wound Cx: MSSA 09/14/24 R foot wound Cx: MSSA 08/10/24 R foot wound Cx: MRSA 08/10/24 L buttock wound Cx: E. faecalis, C. albicans Antibiotic Summary: daptomycin (02/16 present) amp-sulb (02/20 present) prior cefepime (02/16 02/18) pip-tazo (02/18 02/20) Results & Data Vital Signs (Past 12 Hours) Vital Signs Temp Pulse Pulse Resp BP Pulse Ox O2 Del Method 02/20/25 14:42 84 02/20/25 11:18 36.8 C 65 18 149/74 H 95 Room Air 02/20/25 08:13 Room Air 02/20/25 08:05 36.4 C L 75 16 02/20/25 08:05 36.4 C L 75 16 133/57 L 100 Room Air 02/20/25 07:08 71 02/20/25 03:24 37 C 18 129/64 95 Room Air
[2025-02-20] MEDS: AMPICILLIN/SULBACTAM SOD 3,000 MG/100 ML BAG IV SCH (21:12)
[2025-02-21 06:53] LABS: Hematocrit (blood only) 27.2 % (37.0-47.0); Hemoglobin 9.5 g/dl (12.0-16.0); Mean Corpuscular Hemoglobin 34.9 pg (25.0-34.0); Mean Corpuscular Volume 100.0 fL (80.0-100.0); Platelet Count 246 K/uL (130-400); RDW Standard Deviation 50.9 fL (36.4-46.3); Red Blood Count 2.72 M/uL (4.20-5.40); White Blood Count 11.05 K/ul (4.8-10.8)
[2025-02-21 07:20] LABS: Anion Gap 14.0 (3-11); Blood Urea Nitrogen 35.0 mg/dl (6-23); Calcium 8.5 mg/dl (8.6-10.3); Carbon Dioxide 22.0 mmol/L (21-32); Chloride 93.0 mmol/L (98-107); Creatinine Clr Calc Pharmacy 7.3 ml/min; Glucose 194.0 mg/dl (70-99(Fasting)); Magnesium 1.5 mg/dl (1.7-2.4); Potassium 4.8 mmol/L (3.5-5.1); Sodium 129.0 mmol/L (136-145)
--- NOTE | 2025-02-21 09:54 | Nephrology Progress Note ---
Date of Service February 21, 2025 Assessment & Plan (1) ESRD (end stage renal disease): (2) Hypertension: (3) Anemia: (4) Cellulitis of left lower extremity from knee to ankle: Plan 73-year-old female with end-stage kidney disease on PD (EDW 78kg). Admitted with left lower extremity pain and cellulitis, initially started on cefepime and daptomycin but now switched to daptomycin and Zosyn after having it. Of confusion which is most likely medication related. Clinically she improved and seems to be at her baseline without any confusion. Yesterday she was noted to be volume depleted with hypotension and switched to Delflex 1.5% with bradycardia on dialysis. Ultrafiltration slightly dropped to 750 mL but volume status and blood pressure reasonable. Has h/o chronic lower extremity venous insufficiency s/p venous ablation 11/23/24. Hemoglobin low. Had hemodialysis Thursday. Overall doing well, clinically stable. Had UF 1433 overnight. --Will continue on Delflex 1.5% tonight --increase Lasix 40 mg bid --consider arterial duplex of left LE --Epogen 22065 units x 1 dose given on 02/20/25 --waiting on physical therapy. --continue calcitriol Admission and Anticipated Discharge Date Admission Date: February 16, 2025 Roman Dyson was seen and evaluated this morning. She continues to have some pain mainly in left heel and leg with on going erythema. Has been having dialysis overnight, yesterday had Delflex 1.5% and had ultrafiltration of around 1433 mL, blood pressure improved, volume status acceptable. Electrolyte acceptable. Hemoglobin 9.5 Review of Systems Review of Systems: Detailed review of system was done and pertinent positives and negatives are mentioned above. Physical Exam Constitutional: WD/WN, vitals as above no acute distress Respiratory: no respiratory distress Auscultation: lungs clear to auscultation bilaterally Cardiovascular: Rate/Rhythm: regular rate and regular rhythm Extremities: + AV fistula (with bruit, aneurysm); no edema Skin: + turgor decreased and + erythema; no ra shes Neurologic: no focal motor deficits Psychiatric: Orientation: alert and oriented x 3 Results & Data Vital Signs (Past 12 Hours) Vital Signs Temp Pulse Resp BP Pulse Ox Pulse Ox O2 Del Method 02/21/25 07:35 36.6 C 89 20 128/78 99 Room Air 02/21/25 03:04 37.5 C 98 H 14 108/64 96 Room Air 02/21/25 01:00 96 02/20/25 23:35 36.7 C 83 16 138/68 98 Room Air 02/20/25 23:26 Room Air O2 Del Method 02/21/25 07:35 02/21/25 03:04 02/21/25 01:00 Room Air 02/20/25 23:35 02/20/25 23:26 PG Care Time/CCT Total # of Minutes Spent Total Time Spent with Patient: Total time spent is greater than 50% in coordination of care (as documented) at patient's floor/unit and/or counseling patient: Coding Level of Care Code 86283 SUB INP/OBS CARE MIN Diagnoses ESRD (end stage renal disease) N18.6 Essential hypertension I10 Hypertension type: essential hypertension Anemia D64.9 Cellulitis of left lower extremity from knee to ankle L03.116 (2) Hypertension Hypertension type: essential hypertension Qualified Code(s): I10 - Essential (primary) hypertension
--- NOTE | 2025-02-21 11:00 | Orthopedic Consultation ---
Date of Consultation February 21, 2025 Assessment & Plan (1) Left leg pain: I advised the patient that her Grewal's cyst is stable. The calf pain she has may be due to a tear in her allowing for some fluid to move distally. Her cellulitis seems to be improving. The erythema is very minimal and there is no warmth or fluctuance. I agree with the regimen that infectious disease has provided her through IV treatment of her MSSA. Patient will most likely need placed due to living on her own and being unable to ambulate. Patient will need PT/OT Pain control and DVT prophylaxis per medicine service Orthopedically patient is stable. Patient is already established at our clinic and is scheduled for carpal tunnel release. This will most likely need to be pushed back until she is optimized medically. Supervising Physician Co-Signing Physician Notes I reviewed the patient's chart, imaging, and performed the substantive portion of the visit. Agree with above note. Medical treatment for her grewal's cyst. Do not recommend aspiration of the cyst. Follow-up as needed. History of Present Illness Reason for Consultation: Left knee pain (Grewal's Cyst); left lower extremity cellulitis Requesting Physician: Chico Santana MD Attending Physician: Markel Looney DO History of Present Illness The patient is a 74-year-old female is seen in consultation for Left posterior knee pain (Grewal Cyst) and lower leg cellulitis. Patient has a past medical history including ESRD on peritoneal dialysis, dialysis AV fistula malfunction, diabetes mellitus, anemia, ambulatory dysfunction, history of MRSA infection, chronic venous insufficiency, history of pressure ulcers in buttock and coccygeal region, history of venous ulcers of bilateral lower extremities, gout, vitamin D deficiency, and hyperlipidemia. She had been having issues with left lower extremity swelling, erythema and worsening pain of the left lower extremity including ankle. She had undergone a venous Doppler of left lower extremity, ordered by her doctor after a visit to their office on 02/10/2025, which was negative for DVT, but did show superficial venous thrombus. Patient states that on 16 February the pain became so severe that she was unable to ambulate with her walker. She states that usually she does use the walker and her single level home but always uses a wheelchair when she is out and about. Patient has had consultations with nephrology, infectious disease and is currently followed by wound care and the medicine service. Allergies Allergy/AdvReac Type Severity Reaction Status Date / Time insect venom Allergy Intermediate Swelling Verified 02/14/25 17:07 adhesive tape Allergy Mild Rash Verified 02/14/25 17:07 pollen extracts Allergy Mild "Seasonal Verified 02/14/25 17:07 allergies" dulaglutide [[facility]] AdvReac Mild Constipation, Verified 02/14/25 17:07 vomiting Home Medications Medication Instructions Recorded Confirmed Type lancets (Accu-Chek Fastclix Lancet #50 ea 12/16/18 02/10/25 History Drum) mecobalamin (vitamin B12) 1,000 1,000 mcg PO QPM 09/13/20 02/14/25 History mcg chewable tablet (B12 Active) blood sugar diagnostic (Accu-Chek 10/15/21 02/10/25 History SmartView Test Strips) cholecalciferol (vitamin D3) 62.5 62.5 mcg PO QPM 06/06/22 02/14/25 History mcg (2,500 unit) capsule Walking Cane #1 ea 06/30/23 02/10/25 Rx triamcinolone acetonide 0.1 % 1 applic topical BID PRN skin 07/28/23 02/14/25 History topical ointment issues pen needle, diabetic 32 gauge x #100 ea 08/24/23 02/10/25 Rx 5/32" (BD Nicki 2nd Gen Pen Needle) insulin degludec 100 unit/mL (3 30 unit subcut HS 03/15/24 02/14/25 History mL) subcutaneous pen (Tresiba FlexTouch U-100 insulin) blood-glucose sensor (FreeStyle #2 ea 08/16/24 02/10/25 Rx Kvng 3 Plus Sensor device) gentamicin 0.1 % topical cream 1 applic topical UD 08/24/24 02/14/25 History vitamin B complex and vitamin C 1 cap PO QPM 08/24/24 02/14/25 History no.20-folic acid 1 mg capsule (Triphrocaps) clopidogrel 75 mg tablet 75 mg PO QPM 12/07/24 02/14/25 History furosemide 80 mg tablet 80 mg PO BID 12/07/24 02/14/25 History insulin aspart U-100 100 unit/mL 8 unit subcut AC 12/07/24 02/14/25 History (3 mL) subcutaneous pen (Novolog FlexPen U-100 Insulin aspart) potassium chloride 10 mEq 40 meq PO QPM 12/07/24 02/14/25 History tablet,extended release buspirone 7.5 mg tablet 7.5 mg PO QPM #0 tabs 12/09/24 02/14/25 Rx cinacalcet 30 mg tablet (Sensipar) 30 mg PO DAILY 01/10/25 02/14/25 History rosuvastatin 40 mg tablet (Crestor) 40 mg PO PM 01/27/25 02/14/25 History zolpidem 10 mg tablet 10 mg PO HS #30 tabs 01/31/25 02/14/25 Rx metoprolol succinate 25 mg 25 mg PO QPM #90 tabs 02/08/25 02/14/25 Rx tablet,extended release 24 hr calcitriol 0.25 mcg capsule 0.5 mcg PO QPM 02/14/25 02/14/25 History pregabalin 25 mg capsule (Lyrica) 25 mg PO .COMPLEX pain #90 caps 02/14/25 02/14/25 Rx Patient History Medical History Elevated troponin Hyponatremia Hypokalemia Generalized weakness Anxiety Associated dyspnea per pulmonology Fracture of hip, right, closed (04/20/24) right femoral intertrochanteric fracture with mild gapping from a fall Acute cholecystitis Heart failure with preserved ejection fraction CAD (coronary artery disease) Obesity Non-ST elevation IN (NSTEMI) Pulmonary edema Folate deficiency anemia Metabolic acidosis AV fistula right arm--per pt not currently using yet Periodontal pocket Carious teeth Sleep apnea Per 2009 polysomnography (per 02/2021 pulmonology note)- pt declined treatment or repeat study-NO DEVICE Diastolic CHF Chronic kidney disease, stage 4 (severe) Secondary hyperparathyroidism of renal origin History of DVT (deep vein thrombosis) Multiple "small" DVTs (25+ years ago, 6 years ago) Fibroids History of hypothyroidism HX-NO MEDS Sensorineural hearing loss (SNHL) of both ears Family history of colon cancer in mother Surgical History Status post-operative repair of hip fracture Hx laparoscopic cholecystectomy (01/28/24) Robotic Laparoscopic Cholecystectomy(Not Applicable) - Oseas M. Chambers, DO, FACS History of coronary artery stent placement S/P arteriovenous (AV) fistula creation RIGHT arm 03/27/21 @ [facility] Dr. Subramanian History of dental surgery History of surgery on arm Right Arm basilic vein transposition 2nd stage @ [facility] Dr. Subramanian 06/10/21 History of colonoscopy Family History Mother Diabetes Renal cell cancer Heart disease Colorectal cancer Hypertension Brother Diabetes Renal cell cancer Heart disease Lung cancer Hypertension Gallbladder disease Father Prostate cancer Heart disease Hypertension Grandmother (Maternal) Colorectal cancer Aunt Diabetes Other Alzheimer disease No family history of adverse response to anesthesia Denies family history of Ovarian cancer Myocardial infarction Breast cancer Social History Smoking Status: Never smoker Second Hand Exposure: No; Do You Dip or Chew Tobacco: No; Hx Alcohol Use: No Hx Substance Use: No Preferred Language: Jamaican Communication Ability: Effective Visual Impairment: Limited Hearing Ability: Hard of Hearing Clerical Supervisor Required: No Beliefs That Will Affect Care: None marital status: Single Current Living Situation: Alone Current Living Situation Comment: has home health nursing current occupational status: retired current occupation: Retired How many Children do You have: 0 Feels Safe at Home: Yes Childhood Exposure to Second-Hand Smoke: No (very little ) Diet: diabetic caffeine: Yes (drinks iced tea every day, sometimes soda ) Dental Care, Regularly: Yes Physical Activity Frequency: 1-2 Times per Week Physical Activity Frequency Comment: weight training, walking Seatbelt Use: always Sunscreen Use: Yes (most times ) Assistive Devices: Walker and Wheelchair Review of Systems Review of Systems: All systems reviewed & are unremarkable except as noted in Subjective Physical Exam Physical Exam: Left lower extremity: Active knee range of motion is from 0 degrees of extension to 125 degrees of flexion. She does have some mild tenderness to palpation over the popliteal fossa with a small egg sized shape Grewal's cyst. She also experiences tenderness to palpation over the proximal aspect of the gastroc both medially and laterally. There is mild edema and erythema extending from the distal third of her lower leg into her foot. She has 1+ edema that is nonpitting. There is no warmth or open skin areas. Her peripheral pulses are 1+. She was able to detect light sensation to touch over the pads of her digits. She does have discomfort with passive dorsi and plantarflexion of her foot and ankle. She states that she is scheduled to meet with podiatry as well. Results & Data Vital Signs (Past 12 Hours) Vital Signs Temp Pulse Resp BP Pulse Ox Pulse Ox O2 Del Method 02/21/25 07:35 36.6 C 89 20 128/78 99 Room Air 02/21/25 03:04 37.5 C 98 H 14 108/64 96 Room Air 02/21/25 01:00 96 02/20/25 23:35 36.7 C 83 16 138/68 98 Room Air 02/20/25 23:26 Room Air O2 Del Method 02/21/25 07:35 02/21/25 03:04 02/21/25 01:00 Room Air 02/20/25 23:35 02/20/25 23:26 Diagnostic Findings Laboratory Results WBC 11.05 K/ul (4.8-10.8) H 02/21/25 06:02 RBC 2.72 M/uL (4.20-5.40) L 02/21/25 06:02 Hgb 9.5 g/dl (12.0-16.0) L 02/21/25 06:02 Hct 27.2 % (37.0-47.0) L 02/21/25 06:02 MCV 100.0 fL (80.0-100.0) 02/21/25 06:02 MCH 34.9 pg (25.0-34.0) H 02/21/25 06:02 MCHC 34.9 g/dL (32.0-36.0) 02/21/25 06:02 RDW Std Deviation 50.9 fL (36.4-46.3) H 02/21/25 06:02 RDW Coeff of Poornima 14.1 % (11.5-14.5) 02/21/25 06:02 Plt Count 246 K/uL (130-400) 02/21/25 06:02 MPV 10.5 fL (9.4-12.4) 02/21/25 06:02 Immature Gran % (Auto) 0.8 % 02/19/25 07:56 Neut % (Auto) 70.5 % 02/19/25 07:56 Lymph % (Auto) 15.6 % 02/19/25 07:56 Lamar % (Auto) 7.2 % 02/19/25 07:56 Eos % (Auto) 5.1 % 02/19/25 07:56 Baso % (Auto) 0.8 % 02/19/25 07:56 Neut # (Auto) 6.22 K/uL (1.40-6.50) 02/19/25 07:56 Lymph # (Auto) 1.37 K/uL (1.20-3.40) 02/19/25 07:56 Lamar # (Auto) 0.63 K/uL (0.11-0.59) H 02/19/25 07:56 Eos # (Auto) 0.45 K/uL (0.00-0.50) 02/19/25 07:56 Baso # (Auto) 0.07 K/uL (0.00-0.20) 02/19/25 07:56 Immature Gran # (Auto) 0.07 K/uL (0.01-0.20) 02/19/25 07:56 PT 10.5 Seconds (9.0-12.0) 02/16/25 18:49 INR 1.0 (0.9-1.1) 02/16/25 18:49 APTT 23 Seconds (21-31) 02/16/25 18:49 PTT Ratio 0.8 02/16/25 18:49 Sodium 129 mmol/L (136-145) L 02/21/25 06:02 Potassium 4.8 mmol/L (3.5-5.1) 02/21/25 06:02 Chloride 93 mmol/L (98-107) L 02/21/25 06:02 Carbon Dioxide 22 mmol/L (21-32) 02/21/25 06:02 Anion Gap 14 (3-11) H 02/21/25 06:02 BUN 35 mg/dl (6-23) H 02/21/25 06:02 Creatinine 6.81 mg/dl (0.6-1.2) H* 02/21/25 06:02 Est Cr Clr Drug Dosing 7.3 ml/min 02/21/25 06:02 eGFR 5.84 02/21/25 06:02 BUN/Creatinine Ratio 5.1 (10-20) L 02/21/25 06:02 Glucose 194 mg/dl (70-99(Fasting)) H 02/21/25 06:02 POC Glucose 173 mg/dl (70-99) H 02/21/25 08:09 Estimat Average Glucose 163 mg/dl 02/17/25 07:58 Hemoglobin A1c 7.3 % (4.5-5.6) H 02/17/25 07:58 Lactate 2.3 mmol/L (0.4-2.0) H* 02/18/25 10:48 Uric Acid 6.6 mg/dl (2.6-7.2) 02/17/25 07:58 Calcium 8.5 mg/dl (8.6-10.3) L 02/21/25 06:02 Magnesium 1.5 mg/dl (1.7-2.4) L 02/21/25 06:02 Iron 46 mcg/dl (35-150) 02/18/25 06:23 TIBC 151 mcg/dl (250-450) L 02/18/25 06:23 Transferrin 108 mg/dl (200-360) L 02/18/25 06:23 Transferrin % Sat 30 % (15-50) 02/18/25 06:23 Ferritin 1195.7 ng/ml (8-388) H 02/18/25 06:23 Total Bilirubin 0.6 mg/dl (0.2-1.0) 02/19/25 07:56 Direct Bilirubin 0.0 mg/dl (0-0.2) 02/16/25 18:49 AST 51 U/L (13-39) H 02/19/25 07:56 ALT 33 U/L (7-52) 02/19/25 07:56 Alkaline Phosphatase 97 U/L (34-104) 02/19/25 07:56 Troponin I High Sens 163.3 pg/ml (0-14) H* 02/16/25 20:50 Total Protein 5.6 gm/dl (6.0-8.3) L 02/19/25 07:56 Albumin 2.2 gm/dl (3.4-5.0) L 02/19/25 07:56 Globulin 3.4 gm/dl (2.5-4.0) 02/19/25 07:56 Albumin/Globulin Ratio 0.6 (0.9-2) L 02/19/25 07:56 Procalcitonin 1.14 ng/ml (0-0.5) H 02/16/25 18:49 TSH 2.637 uIu/ml (0.300-4.500) 02/20/25 05:53 Urine Color Yellow 02/19/25 Unknown Urine Appearance Turbid (Clear) A 02/19/25 Unknown Urine pH 7.5 (4.5-7.5) 02/19/25 Unknown Ur Specific Trent 1.011 (1.000-1.030) 02/19/25 Unknown Urine Protein 3+ (Negative) H 02/19/25 Unknown Urine Glucose (UA) Trace (Negative) H 02/19/25 Unknown Urine Ketones Negative (Negative) 02/19/25 Unknown Urine Blood 3+ (Negative) H 02/19/25 Unknown Urine Nitrite Negative (Negative) 02/19/25 Unknown Urine Bilirubin Negative (Negative) 02/19/25 Unknown Urine Urobilinogen Negative (Negative) 02/19/25 Unknown Ur Leukocyte Esterase 3+ (Negative) H 02/19/25 Unknown Urine WBC (Auto) >50 /hpf (0-5) H 02/19/25 Unknown Urine RBC (Auto) >20 /hpf (0-2) H 02/19/25 Unknown U Hyaline Cast (Auto) 6-10 /lpf (0-2) H 02/19/25 Unknown U Epithel Cells (Auto) >20 /hpf (0-2) H 02/19/25 Unknown Urine Bacteria (Auto) 3+ (None Seen) H 02/19/25 Unknown Urine Yeast Present (None Prsent) A 02/19/25 Unknown Urine Comment 02/19/25 Unknown Nasal Screen MRSA (PCR) Negative (Negative) 02/20/25 12:37 Impressions Chest X-Ray 02/16/25 18:11 Chest radiograph, one view History: Chest pain Comparison: None Findings: Single AP view of the chest performed. No focal consolidation or pleural effusion. No pneumothorax. The cardiomediastinal silhouette is within normal limits. Normal pulmonary vascularity. No evidence for lymphadenopathy. No visualized bony or soft tissue abnormality. Impression: Normal chest radiograph Electronically signed by Jeyson Olmstead 02-16-2025 7:16 PM Ankle X-Ray 02/17/25 04:13 EXAM: XR ankle LT 2V CLINICAL HISTORY: Worsening pain/differential includes gout. TECHNIQUE: X-ray images of the left ankle were obtained in anteroposterior (AP), and lateral projections. COMPARISON: Prior ultrasound venous Doppler of the left lower limb dated 09/23/2024 was reviewed. FINDINGS: Bone Structure: There is significantly reduced bone mineralization. Degenerative osteoarthritic changes are noted in the visualized bones. Evidence of a calcaneal spur is present. There is no evidence of fracture or dislocation. No osseous lesions or abnormalities are identified. Soft Tissues: Vascular calcifications are noted. Diffuse soft tissue swelling is noted, with linear dense calcific foci. IMPRESSION: 1. There is reduced bone mineralization with degenerative changes. 2. Diffuse soft tissue swelling is noted, with linear dense calcific foci and advanced vascular calcifications. Needs clinical correlation. 3. There is no gross fracture or dislocation. 4. There is a plantar calcaneal spur. Disclaimer: A subtle bone abnormality or fracture may not be readily apparent on X-rays, thus clinical correlation and further imaging including follow-up CT, MRI, or follow-up X-rays are advised as needed. Electronically signed by Abran Adams 02-17-2025 08:[address] 02/18/25 08:56 Clinical history: Pain. Rule out abscess Technique: Axial computed tomography images were obtained of the left thigh without intravenous contrast. Sagittal and coronal reconstructions were obtained Findings: No fracture is identified. No subluxation or dislocation is seen. There is mild left hip and left knee osteoarthritis. No focal osseous lesion is evident There is diffuse subcutaneous edema that may be due to cellulitis. No clear abscess is seen. There are calcified uterine leiomyomas. There is an apparent peritoneal dialysis catheter. There is a small amount of ascites. There is a small knee effusion with a small Grewal's cyst. There is extensive multifocal atherosclerotic plaque. Impression: 1. No definite osteomyelitis or abscess 2. Subcutaneous edema that may be due to cellulitis 3. Ascites with a peritoneal dialysis catheter in place 4. Uterine leiomyomas 5. Mild osteoarthritis 6. Left knee effusion with a Grewal's cyst Electronically signed by Richard Hubbard 02-18-2025 09:[address] 02/18/25 08:56 Technique: Axial computed tomography images were obtained of the left lower leg without intravenous contrast. Sagittal and coronal reconstructions were obtained Findings: No fracture is identified. No subluxation or dislocation is seen. There are no significant arthritic changes. No focal osseous lesion is evident. There is osteopenia. There is no clear evidence of osteomyelitis. There is a plantar calcaneal spur The visualized musculature appears unremarkable. There is mild diffuse subcutaneous edema. There is multifocal atherosclerotic plaque. No definite soft tissue mass or focal fluid collection is seen. No foreign body is evident Impression: 1. Subcutaneous edema that may be due to cellulitis 2. No definite abscess or osteomyelitis Electronically signed by Richard Hubbard 02-18-2025 09:52 AM Foot MRI 02/19/25 14:05 EXAM: MR foot LT w/o con CLINICAL HISTORY: left ankle pain TECHNIQUE: MRI of the left foot was performed without intravenous contrast administration. Sequences obtained include sagittal T1-weighted, sagittal T2-weighted, coronal T1-weighted, coronal T2-weighted, axial T1-weighted, and axial T2-weighted images. COMPARISON: Comparison is made with prior plain X-ray of the ankle dated 02/17/2025. FINDINGS: Bone: A focus of high signal is seen in the subarticular surface of the medial cuneiform bone (arrow). Osteoarthritis of the first metatarsophalangeal joint is seen, with osteophytes of the articular surfaces. Tendons: Normal MRI appearance of the scanned compartmental longitudinal tendons. Muscles: The intrinsic plantar musculature of the foot shows high STIR/T2 signal. The visualized neurovascular structures do not reveal any obvious abnormality. Transverse and longitudinal arches of the foot are well maintained. Normal MRI appearance of the plantar fascia with no definite current MRI evidence to suggest plantar fasciitis. Soft Tissue: Diffuse soft tissue thickening and edema is seen, more on the plantar aspect. Irregular thickening of the plantar fascia is seen. IMPRESSION: 1. A focus of high signal is seen in the subarticular surface of the medial cuneiform bone (arrow), which can be related to marrow edema/osteochondral cyst correlating clinically; otherwise, no evidence of acute osteomyelitis. 2. Osteoarthritis of the first metatarsophalangeal joint is seen. 3. The intrinsic plantar musculature of the foot is edematous, which could be due to infection. 4. Diffuse soft tissue thickening and edema is seen, more on the plantar aspect, likely due to infection. 5. 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 Electronically signed by Abran Adams 02-19-2025 5:18 PM Lower Extremity MRI 02/19/25 14:06 EXAM: MR lower leg LT wo con CLINICAL HISTORY: left leg pain, r/o osteomyelitis, TECHNIQUE: Multiplanar, multi-echo MRI of the left tibia and fibula was performed without administration of intravenous contrast. COMPARISON: None. FINDINGS: Bones: There is normal alignment of the tibia and fibula. No fractures or dislocations are identified. No lytic or sclerotic lesions are present. There is no bone marrow edema or contusion. Joints: A cystic fluid collection is seen in the upper medial aspect of the leg, measuring approximately 17x11 mm. Grewal's cyst versus ganglion cyst. Osteoarthritis of the knee joint is present. Muscles: The muscles of the leg demonstrate patchy high STIR/T2 signal. Tendons and Ligaments: The major tendons and ligaments around the tibia and fibula are intact and demonstrate normal appearance. There is no evidence of tendinopathy, tendon tears, or ligamentous injury. Neurovascular Structures: The visualized neurovascular structures demonstrate normal appearance. There is no evidence of compression or abnormal signal changes. Soft Tissues: Diffuse subcutaneous edema and thickening are seen mainly in the upper medial aspect of the leg. IMPRESSION: 1. No signs of osteomyelitis. 2. Diffuse subcutaneous edema and thickening is seen mainly in the upper medial aspect of the leg, could be cellulitis. 3. A cystic fluid collection is seen in the upper medial aspect of the leg, measuring approximately 17x11 mm. Grewal's cyst versus ganglion cyst. 4. Osteoarthritis of the knee joint is present. 5. The muscles of the leg demonstrate patchy high STIR/T2 signal, myositis/muscle edema. Electronically signed by Abran Adams 02-19-2025 5:13 PM
[2025-02-21] MEDS: FUROSEMIDE 40 MG TAB PO SCH (11:45)
[2025-02-21] MEDS: AMPICILLIN/SULBACTAM SOD 1,500 MG/100 ML BAG IV SCH (11:45)
--- NOTE | 2025-02-21 13:15 | Infectious Disease Progress Nt ---
Date of Service February 21, 2025 Assessment & Plan (1) Cellulitis of left lower extremity from knee to ankle: (2) Left leg pain: Plan ID Problem List: # LLE SSTI/myositis, improving # L ankle pain # L calf pain # ESRD on peritoneal dialysis # Type 2 DM Impression: Margaux Contreras is a 74-year-old woman with history of ESRD on PD, history of AV fistula malfunction, T2DM, history of sacral/coccyx pressure ulcers, chronic venous insufficiency, history of venous ulcers of bilateral lower extremities, gout, who presents to [facility] on 02/16/25 with worsening LLE swelling, erythema, and pain. ID is consulted for LLE SSTI. She was recently admitted to [facility] from 12/0712/09/24 for RLE wound and cellulitis. Wound Cx grew MSSA. She was initially on pip-tazo and daptomycin while inpatient, and transitioned to clindamycin 300 mg QID x 5 more days upon discharge. The patient been having left lower extremity swelling, erythema, and pain. She was seen at an outpatient visit by her PCP on 02/10/25 at which time she underwent LLE ultrasound that was negative for DVT, but did show superficial venous thrombus. She has also been following with orthopedic surgery for a left Grewal's cyst. Her LLE pain and swelling continued to progress, and she presented to the ED on 02/16. In the ED, afebrile, WBC 10.91. She was started on daptomycin and cefepime. 02/18 LLE/femur CT with edema, no definitive abscess or osteomyelitis; L knee effusion with Bakers cyst. 02/19 MRI LLE with edema c/w cellulitis; no e/o osteomyelitis, cystic fluid collection 17x11 mm in the upper medial LLE c/w Bakers cyst vs. ganglion cyst; high STIR/T2 signal intensity of leg muscles c/w myositis. 02/19 MRI L foot showed a focus of high signal in the subarticular surface of the medial cuneiform bone which can be from marrow edema/osteochondral cyst and otherwise without e/o acute osteomyelitis; edema of the plantar soft tissue including muscle c/f infection. Discussion Pt presenting with significant myositis/SSTI of the LLE. Imaging without abscess or e/o osteomyelitis. This is most likely a bacterial infection, such as with Staph or Strep. Note prior wound Cx of the RLE from earlier this year with both MRSA (07/2024) and MSSA (08/2024 and 11/2024). BCx from 02/16 remain NGTD. Wound Cx from 02/13 are NG. Pt has had significant improvement of her leg erythema on antibiotics, however continues to have L ankle pain and L calf pain. Note 02/19 MRI L foot showed a focus of high signal in the subarticular surface of the medial cuneiform bone which can be from marrow edema/osteochondral cyst and otherwise without e/o acute osteomyelitis. Continue to monitor L ankle, if persistent/increasing pain may consider reimaging. Per orthopedic surgery evaluation on 02/21, the patients calf pain may be d/t a muscular tear. The cellulitis was felt to be improving with minimal erythema, and no warmth or fluctuance. Ortho is also following along for the patients known L Bakers cyst. Will continue empiric abx, can continue daptomycin and amp/sulbactam. If improving and discharging, anticipate possible transition to linezolid and amox- clav to complete an extended (21-day) course with close follow-up. Favoring a longer course given the extent of myositis present. Recommendations: - Continue daptomycin 500 mg IV q48h (renally dosed) - Continue amp/sulbactam 1.5 g IV q12h (renally dosed for PD) - If improving and discharging, anticipate possible transition to PO abx (linezolid 600 mg PO BID + amox-clav 500 mg PO q12h, renally dosed for PD) to complete a 21-day course (through 03/09/25) - F/u 02/16 BCx until finalized to ensure remains negative - Continue to monitor L ankle, if persistent/increasing pain may consider reimaging - If having diarrhea >=3 loose watery stools/day, can check C. diff ID will continue to follow. Tamra Fields MD, M[facility] Infectious Diseases [facility] Connect direct line: [phone] Admission and Anticipated Discharge Date Admission Date: February 16, 2025 Subjective Subsequent visit was provided via telemedicine using two-way real-time interactive telecommunication between the patient and the telemedicine provider. For the duration of the visit, the provider was performing the assessment from a different facility than the patient. This includesuse of bluetooth stethoscope forauscultationperformed by the telepresenter that the telemedicine provider can hear if described in the physical exam. [employer] contact information: Please call [facility] Call Center . (Phone Number For Physician Use Only) After establishing a telemedicine visit, patient was: Patient was verified with two unique identifiers, Patient/authorized rep acknowledged consent and understanding and Gave permission to continue telehealth session Time Spent with Patient: Subsequent => 35 min - Afebrile, WBC 11.05 - Still having pain in the back of her LLE and in her L ankle. Reports that symptoms seemed to be improved on abx, then became worse again. Also reports worsening buttock sores and diarrhea today - Per orthopedic surgery evaluation on 02/21, the patients calf pain may be d/t a muscular tear. The cellulitis was felt to be improving with minimal erythema, and no warmth or fluctuance. Physical Exam Physical Exam: Exam obtained with assistance of an in-person telepresenter General: Well-appearing, no acute distress HEENT: Conjunctivae non-injected, sclerae anicteric, MMM, OP clear. Resp: Respirations nonlabored. Abd: Soft, nontender, nondistended. Back: No tenderness to palpation along spine Ext: LLE with minimal erythema around the chand. Reporting significant L calf pa in with movement and persistent L ankle pain Skin: No rashes or lesions. Neuro: Alert & interactive. Grossly non-focal. Psych: Pleasant, appropriate. Results & Data Vital Signs (Past 12 Hours) Vital Signs Temp Pulse Resp BP Pulse Ox O2 Del Method 02/21/25 07:35 36.6 C 89 20 128/78 99 Room Air 02/21/25 03:04 37.5 C 98 H 14 108/64 96 Room Air Laboratory Results Diagnostics: 02/19 MRI LLE 1. No signs of osteomyelitis. 2. Diffuse subcutaneous edema and thickening is seen mainly in the upper medial aspect of the leg, could be cellulitis. 3. A cystic fluid collection is seen in the upper medial aspect of the leg, measuring approximately 17x11 mm. Grewal's cyst versus ganglion cyst. 4. Osteoarthritis of the knee joint is present. 5. The muscles of the leg demonstrate patchy high STIR/T2 signal, myositis/muscle edema. 02/19 MRI L foot 1. A focus of high signal is seen in the subarticular surface of the medial cuneiform bone (arrow), which can be related to marrow edema/osteochondral cyst correlating clinically; otherwise, no evidence of acute osteomyelitis. 2. Osteoarthritis of the first metatarsophalangeal joint is seen. 3. The intrinsic plantar musculature of the foot is edematous, which could be due to infection. 4. Diffuse soft tissue thickening and edema is seen, more on the plantar aspect, likely due to infection. 5. 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 02/[address] 1. Subcutaneous edema that may be due to cellulitis 2. No definite abscess or osteomyelitis 02/[address] 1. No definite osteomyelitis or abscess 2. Subcutaneous edema that may be due to cellulitis 3. Ascites with a peritoneal dialysis catheter in place 4. Uterine leiomyomas 5. Mild osteoarthritis 6. Left knee effusion with a Grewal's cyst Micro Data: 02/19 UCx: mixed growth 02/16 BCx x2: NGTD 02/13 RLE wound Cx: NG prior micro 12/14 buttock wound Cx: GI linda 12/07 R foot wound Cx: MSSA 09/14/24 R foot wound Cx: MSSA 08/10/24 R foot wound Cx: MRSA 08/10/24 L buttock wound Cx: E. faecalis, C. albicans Antibiotic Summary: daptomycin (02/16 present) amp-sulb (02/20 present) prior cefepime (02/16 02/18) pip-tazo (02/18 02/20)
[2025-02-21 13:42] LABS: Uric Acid 5.0 mg/dl (2.6-7.2)
--- NOTE | 2025-02-21 13:45 | Hospitalist Progress Note ---
Date of Service February 21, 2025 Assessment & Plan (1) Cellulitis of left lower extremity from knee to ankle: (2) Dialysis patient: (3) Ambulatory dysfunction: Plan 1) Cellulitis of left lower extremity from knee to ankle: (2) MRSA infection: (3) ESRD on peritoneal dialysis: (4) Type 2 diabetes mellitus with obesity: Plan Karis Guthrie 74-year-old female with a PMH ESRD on peritoneal dialysis, AV fistula malfunction, MRSA infection, diabetes mellitus, anemia, ambulatory dysfunction, chronic venous insufficiency, history of pressure ulcers in buttock and coccygeal region, history of venous ulcers of bilateral lower extremities, gout, she's following with wound care center for her lower extremity wound and pressure ulcer she's has multiple near fall episode at home. She been left lower extremity swelling, erythema and worsening pain of the left lower extremity including ankle. She had undergone a venous Doppler of left lower extremity, which did show superficial venous thrombus, but no deep venous thrombosis She has also been following with orthopedic surgery for a left Grewal's cyst. went to ER on 02/16, after having the pain in her left leg progressing to the point that she can no longer walk. She has not fallen, but has almost fallen a number of occasions. In the emergency department this evening, she was given fentanyl 50 mcg IV with only minimal improvement in pain, and was started on cefepime 2 g IV. Chest x-ray was ordered, and it was negative. she was on cefepime 2g IV for left leg celllulitis and daptomcyin she was switched to zosyn on 02/18 (thursday), and pain improving. Cellulitis of left lower extremity/presumptive gout flare left ankle- superficial thrombus, hx of MRSA infection. f/u on arterial US her MRI found sub-Q edema in the upper medial aspect of her leg. also found cystis fluid collection in the upper medial aspect of the leg communicated [facility] ID, she's on unasyn 1.5 q12 hours and daptomycin 500mg q48 hours if she's improving, potential switching to augmentin 500mg q12 hours (renally dose for PD) and linezolid 600mg PO BID she's was seen by orthopedic and suspect potential for muscle tear deconditioning; await PT and OT evaluation left ankle pain foot MRI on 02/19 found high signal in the medial cunefirom bone. hypotension episode-metoprolol being held added midodrine for BP support ESRD on peritoneal dialysis/failure of AV fistula/hypertension- spoke with Dr. Bragg; nephrology plan for PD in the evening Continue usual medications of cholecalciferol, Cinacalcet, Triphrocaps her metoprolol being held given hypotension furosemide, potassium chloride, Plavix, Diabetes mellitus- Change insulin degludec from 30 units subcu at bedtime glargine 20 units subcu at bedtime Placed on Accu-Cheks with NovoLog SSI Depression/anxiety/insomnia- Continue zolpidem at bedtime, buspirone Hyperlipidemia- Hold rosuvastatin while on daptomycin Hypomagnesemia- Magnesium 1.6 on admission Allowed to be corrected through ED Anemia of chronic kidney disease- Hemoglobin 9.2 is in her usual range Left lower extremity superficial venous thrombosis- As noted on venous Doppler of 02/10/2025, with no DVT noted Not a candidate for anti-inflammatories unless we use steroids If becomes bothersome, could use local treatment such as heat Admission and Anticipated Discharge Date Admission Date: February 16, 2025 Subjective she's on unasyn and daptomcyin still has left leg pain, orthopedic noted grewal cysts and defer acute surgical intervention nephrology requested for arterial studies to r/o PVD she's still has pain and inability to bear weight, await PT and OT evaluation she's is frustrated about the food options with her current diet after some discussion, and in order to prevent malnutrition, relax from carb control to regular diet Physical Exam Physical Exam: VITALS: Reviewed. WEIGHT/BMI reviewed. GEN: Healthy appearing, well-developed, NAD. HEENT -Head: NC/AT; -Mouth and throat: MMM. Normal gums, muc jose j, palate,. Good dentition. NECK: Supple, with no masses. CV: RRR, no m/r/g. LUNGS: CTAB, no w/r/c. ABD: Soft, NT/ND, NBS, no masses or organomegaly. SKIN: + for right leg ulcer MSK: left leg tenderness to palpation; + for edema; + for right leg ulcer NEURO: AAOx3 Results & Data Results & Data Vital Signs (Past 12 Hours) Vital Signs Temp Pulse Resp BP Pulse Ox O2 Del Method 02/21/25 07:35 36.6 C 89 20 128/78 99 Room Air 02/21/25 03:04 37.5 C 98 H 14 108/64 96 Room Air Laboratory Results Laboratory Results - last 72 hr 02/18/25 02/18/25 02/18/25 06:23 16:07 20:30 WBC RBC Hgb Hct MCV MCH MCHC RDW Std Deviation RDW Coeff of Poornima Plt Count MPV Immature Gran % (Auto) Neut % (Auto) Lymph % (Auto) [place] % (Auto) Eos % (Auto) Baso % (Auto) Neut # (Auto) Lymph # (Auto) [place] # (Auto) Eos # (Auto) Baso # (Auto) Immature Gran # (Auto) Sodium Potassium Chloride Carbon Dioxide Anion Gap BUN Creatinine Est Cr Clr Drug Dosing eGFR BUN/Creatinine Ratio Glucose POC Glucose 219 H 304 H* Uric Acid Calcium Magnesium Iron 46 Total Bilirubin AST ALT Alkaline Phosphatase Total Protein Albumin Globulin Albumin/Globulin Ratio TSH Urine Color Urine Appearance Urine pH Ur Specific [place] Urine Protein Urine Glucose (UA) Urine Ketones Urine Blood Urine Nitrite Urine Bilirubin Urine Urobilinogen Ur Leukocyte Esterase Urine WBC (Auto) Urine RBC (Auto) U Hyaline Cast (Auto) U Epithel Cells (Auto) Urine Bacteria (Auto) Urine Yeast Urine Comment Nasal Screen MRSA (PCR) 02/19/25 02/19/25 02/19/25 07:33 07:56 11:09 WBC 8.81 RBC 3.08 L Hgb 10.5 L Hct 30.9 L MCV 100.3 H MCH 34.1 H MCHC 34.0 RDW Std Deviation 52.5 H RDW Coeff of Poornima 14.3 Plt Count 252 MPV 10.6 Immature Gran % (Auto) 0.8 Neut % (Auto) 70.5 Lymph % (Auto) 15.6 [place] % (Auto) 7.2 Eos % (Auto) 5.1 Baso % (Auto) 0.8 Neut # (Auto) 6.22 Lymph # (Auto) 1.37 [place] # (Auto) 0.63 H Eos # (Auto) 0.45 Baso # (Auto) 0.07 Immature Gran # (Auto) 0.07 Sodium 130 L Potassium 4.8 Chloride 94 L Carbon Dioxide 26 Anion Gap 10 BUN 40 H Creatinine 7.11 H* Est Cr Clr Drug Dosing 6.9 eGFR 5.55 BUN/Creatinine Ratio 5.6 L Glucose 233 H POC Glucose 232 H 128 H Uric Acid Calcium 8.7 Magnesium 1.6 L Iron Total Bilirubin 0.6 AST 51 H ALT 33 Alkaline Phosphatase 97 Total Protein 5.6 L Albumin 2.2 L Globulin 3.4 Albumin/Globulin Ratio 0.6 L TSH Urine Color Urine Appearance Urine pH Ur Specific [place] Urine Protein Urine Glucose (UA) Urine Ketones Urine Blood Urine Nitrite Urine Bilirubin Urine Urobilinogen Ur Leukocyte Esterase Urine WBC (Auto) Urine RBC (Auto) U Hyaline Cast (Auto) U Epithel Cells (Auto) Urine Bacteria (Auto) Urine Yeast Urine Comment Nasal Screen MRSA (PCR) 02/19/25 02/19/25 02/19/25 16:14 20:37 Unknown WBC RBC Hgb Hct MCV MCH MCHC RDW Std Deviation RDW Coeff of Poornima Plt Count MPV Immature Gran % (Auto) Neut % (Auto) Lymph % (Auto) [place] % (Auto) Eos % (Auto) Baso % (Auto) Neut # (Auto) Lymph # (Auto) [place] # (Auto) Eos # (Auto) Baso # (Auto) Immature Gran # (Auto) Sodium Potassium Chloride Carbon Dioxide Anion Gap BUN Creatinine Est Cr Clr Drug Dosing eGFR BUN/Creatinine Ratio Glucose POC Glucose 105 H 296 H Uric Acid Calcium Magnesium Iron Total Bilirubin AST ALT Alkaline Phosphatase Total Protein Albumin Globulin Albumin/Globulin Ratio TSH Urine Color Yellow Urine Appearance Turbid A Urine pH 7.5 Ur Specific [place] 1.011 Urine Protein 3+ H Urine Glucose (UA) Trace H Urine Ketones Negative Urine Blood 3+ H Urine Nitrite Negative Urine Bilirubin Negative Urine Urobilinogen Negative Ur Leukocyte Esterase 3+ H Urine WBC (Auto) >50 H Urine RBC (Auto) >20 H U Hyaline Cast (Auto) 6-10 H U Epithel Cells (Auto) >20 H Urine Bacteria (Auto) 3+ H Urine Yeast Present A Urine Comment Nasal Screen MRSA (PCR) 02/20/25 02/20/25 02/20/25 05:53 07:03 11:14 WBC 9.10 RBC 2.58 L Hgb 8.6 L Hct 26.2 L MCV 101.6 H MCH 33.3 MCHC 32.8 RDW Std Deviation 52.5 H RDW Coeff of Poornima 14.5 Plt Count 220 MPV 10.7 Immature Gran % (Auto) Neut % (Auto) Lymph % (Auto) [place] % (Auto) Eos % (Auto) Baso % (Auto) Neut # (Auto) Lymph # (Auto) [place] # (Auto) Eos # (Auto) Baso # (Auto) Immature Gran # (Auto) Sodium 128 L Potassium 5.3 H Chloride 94 L Carbon Dioxide 24 Anion Gap 10 BUN 39 H Creatinine 7.08 H* Est Cr Clr Drug Dosing 6.9 eGFR 5.58 BUN/Creatinine Ratio 5.5 L Glucose 225 H POC Glucose 188 H 120 H Uric Acid Calcium 8.3 L Magnesium 1.5 L Iron Total Bilirubin AST ALT Alkaline Phosphatase Total Protein Albumin Globulin Albumin/Globulin Ratio TSH 2.637 Urine Color Urine Appearance Urine pH Ur Specific [place] Urine Protein Urine Glucose (UA) Urine Ketones Urine Blood Urine Nitrite Urine Bilirubin Urine Urobilinogen Ur Leukocyte Esterase Urine WBC (Auto) Urine RBC (Auto) U Hyaline Cast (Auto) U Epithel Cells (Auto) Urine Bacteria (Auto) Urine Yeast Urine Comment Nasal Screen MRSA (PCR) 02/20/25 02/20/25 02/20/25 12:37 16:54 20:28 WBC RBC Hgb Hct MCV MCH MCHC RDW Std Deviation RDW Coeff of Poornima Plt Count MPV Immature Gran % (Auto) Neut % (Auto) Lymph % (Auto) [place] % (Auto) Eos % (Auto) Baso % (Auto) Neut # (Auto) Lymph # (Auto) [place] # (Auto) Eos # (Auto) Baso # (Auto) Immature Gran # (Auto) Sodium Potassium Chloride Carbon Dioxide Anion Gap BUN Creatinine Est Cr Clr Drug Dosing eGFR BUN/Creatinine Ratio Glucose POC Glucose 203 H 195 H Uric Acid Calcium Magnesium Iron Total Bilirubin AST ALT Alkaline Phosphatase Total Protein Albumin Globulin Albumin/Globulin Ratio TSH Urine Color Urine Appearance Urine pH Ur Specific [place] Urine Protein Urine Glucose (UA) Urine Ketones Urine Blood Urine Nitrite Urine Bilirubin Urine Urobilinogen Ur Leukocyte Esterase Urine WBC (Auto) Urine RBC (Auto) U Hyaline Cast (Auto) U Epithel Cells (Auto) Urine Bacteria (Auto) Urine Yeast Urine Comment Nasal Screen MRSA (PCR) Negative 02/21/25 02/21/25 02/21/25 06:02 08:09 11:43 WBC 11.05 H RBC 2.72 L Hgb 9.5 L Hct 27.2 L MCV 100.0 MCH 34.9 H MCHC 34.9 RDW Std Deviation 50.9 H RDW Coeff of Poornima 14.1 Plt Count 246 MPV 10.5 Immature Gran % (Auto) Neut % (Auto) Lymph % (Auto) [place] % (Auto) Eos % (Auto) Baso % (Auto) Neut # (Auto) Lymph # (Auto) [place] # (Auto) Eos # (Auto) Baso # (Auto) Immature Gran # (Auto) Sodium 129 L Potassium 4.8 Chloride 93 L Carbon Dioxide 22 Anion Gap 14 H BUN 35 H Creatinine 6.81 H* Est Cr Clr Drug Dosing 7.3 eGFR 5.84 BUN/Creatinine Ratio 5.1 L Glucose 194 H POC Glucose 173 H 143 H Uric Acid 5.0 Calcium 8.5 L Magnesium 1.5 L Iron Total Bilirubin AST ALT Alkaline Phosphatase Total Protein Albumin Globulin Albumin/Globulin Ratio TSH Urine Color Urine Appearance Urine pH Ur Specific [place] Urine Protein Urine Glucose (UA) Urine Ketones Urine Blood Urine Nitrite Urine Bilirubin Urine Urobilinogen Ur Leukocyte Esterase Urine WBC (Auto) Urine RBC (Auto) U Hyaline Cast (Auto) U Epithel Cells (Auto) Urine Bacteria (Auto) Urine Yeast Urine Comment Nasal Screen MRSA (PCR) Diagnostic Findings Laboratory Results WBC 11.05 K/ul (4.8-10.8) H 02/21/25 06:02 RBC 2.72 M/uL (4.20-5.40) L 02/21/25 06:02 Hgb 9.5 g/dl (12.0-16.0) L 02/21/25 06:02 Hct 27.2 % (37.0-47.0) L 02/21/25 06:02 MCV 100.0 fL (80.0-100.0) 02/21/25 06:02 MCH 34.9 pg (25.0-34.0) H 02/21/25 06:02 MCHC 34.9 g/dL (32.0-36.0) 02/21/25 06:02 RDW Std Deviation 50.9 fL (36.4-46.3) H 02/21/25 06:02 RDW Coeff of Poornima 14.1 % (11.5-14.5) 02/21/25 06:02 Plt Count 246 K/uL (130-400) 02/21/25 06:02 MPV 10.5 fL (9.4-12.4) 02/21/25 06:02 Immature Gran % (Auto) 0.8 % 02/19/25 07:56 Neut % (Auto) 70.5 % 02/19/25 07:56 Lymph % (Auto) 15.6 % 02/19/25 07:56 [place] % (Auto) 7.2 % 02/19/25 07:56 Eos % (Auto) 5.1 % 02/19/25 07:56 Baso % (Auto) 0.8 % 02/19/25 07:56 Neut # (Auto) 6.22 K/uL (1.40-6.50) 02/19/25 07:56 Lymph # (Auto) 1.37 K/uL (1.20-3.40) 02/19/25 07:56 [place] # (Auto) 0.63 K/uL (0.11-0.59) H 02/19/25 07:56 Eos # (Auto) 0.45 K/uL (0.00-0.50) 02/19/25 07:56 Baso # (Auto) 0.07 K/uL (0.00-0.20) 02/19/25 07:56 Immature Gran # (Auto) 0.07 K/uL (0.01-0.20) 02/19/25 07:56 PT 10.5 Seconds (9.0-12.0) 02/16/25 18:49 INR 1.0 (0.9-1.1) 02/16/25 18:49 APTT 23 Seconds (21-31) 02/16/25 18:49 PTT Ratio 0.8 02/16/25 18:49 Sodium 129 mmol/L (136-145) L 02/21/25 06:02 Potassium 4.8 mmol/L (3.5-5.1) 02/21/25 06:02 Chloride 93 mmol/L (98-107) L 02/21/25 06:02 Carbon Dioxide 22 mmol/L (21-32) 02/21/25 06:02 Anion Gap 14 (3-11) H 02/21/25 06:02 BUN 35 mg/dl (6-23) H 02/21/25 06:02 Creatinine 6.81 mg/dl (0.6-1.2) H* 02/21/25 06:02 Est Cr Clr Drug Dosing 7.3 ml/min 02/21/25 06:02 eGFR 5.84 02/21/25 06:02 BUN/Creatinine Ratio 5.1 (10-20) L 02/21/25 06:02 Glucose 194 mg/dl (70-99(Fasting)) H 02/21/25 06:02 POC Glucose 143 mg/dl (70-99) H 02/21/25 11:43 Estimat Average Glucose 163 mg/dl 02/17/25 07:58 Hemoglobin A1c 7.3 % (4.5-5.6) H 02/17/25 07:58 Lactate 2.3 mmol/L (0.4-2.0) H* 02/18/25 10:48 Uric Acid 5.0 mg/dl (2.6-7.2) 02/21/25 06:02 Calcium 8.5 mg/dl (8.6-10.3) L 02/21/25 06:02 Magnesium 1.5 mg/dl (1.7-2.4) L 02/21/25 06:02 Iron 46 mcg/dl (35-150) 02/18/25 06:23 TIBC 151 mcg/dl (250-450) L 02/18/25 06:23 Transferrin 108 mg/dl (200-360) L 02/18/25 06:23 Transferrin % Sat 30 % (15-50) 02/18/25 06:23 Ferritin 1195.7 ng/ml (8-388) H 02/18/25 06:23 Total Bilirubin 0.6 mg/dl (0.2-1.0) 02/19/25 07:56 Direct Bilirubin 0.0 mg/dl (0-0.2) 02/16/25 18:49 AST 51 U/L (13-39) H 02/19/25 07:56 ALT 33 U/L (7-52) 02/19/25 07:56 Alkaline Phosphatase 97 U/L (34-104) 02/19/25 07:56 Troponin I High Sens 163.3 pg/ml (0-14) H* 02/16/25 20:50 Total Protein 5.6 gm/dl (6.0-8.3) L 02/19/25 07:56 Albumin 2.2 gm/dl (3.4-5.0) L 02/19/25 07:56 Globulin 3.4 gm/dl (2.5-4.0) 02/19/25 07:56 Albumin/Globulin Ratio 0.6 (0.9-2) L 02/19/25 07:56 Procalcitonin 1.14 ng/ml (0-0.5) H 02/16/25 18:49 TSH 2.637 uIu/ml (0.300-4.500) 02/20/25 05:53 Urine Color Yellow 02/19/25 Unknown Urine Appearance Turbid (Clear) A 02/19/25 Unknown Urine pH 7.5 (4.5-7.5) 02/19/25 Unknown Ur Specific [place] 1.011 (1.000-1.030) 02/19/25 Unknown Urine Protein 3+ (Negative) H 02/19/25 Unknown Urine Glucose (UA) Trace (Negative) H 02/19/25 Unknown Urine Ketones Negative (Negative) 02/19/25 Unknown Urine Blood 3+ (Negative) H 02/19/25 Unknown Urine Nitrite Negative (Negative) 02/19/25 Unknown Urine Bilirubin Negative (Negative) 02/19/25 Unknown Urine Urobilinogen Negative (Negative) 02/19/25 Unknown Ur Leukocyte Esterase 3+ (Negative) H 02/19/25 Unknown Urine WBC (Auto) >50 /hpf (0-5) H 02/19/25 Unknown Urine RBC (Auto) >20 /hpf (0-2) H 02/19/25 Unknown U Hyaline Cast (Auto) 6-10 /lpf (0-2) H 02/19/25 Unknown U Epithel Cells (Auto) >20 /hpf (0-2) H 02/19/25 Unknown Urine Bacteria (Auto) 3+ (None Seen) H 02/19/25 Unknown Urine Yeast Present (None Prsent) A 02/19/25 Unknown Urine Comment 02/19/25 Unknown Nasal Screen MRSA (PCR) Negative (Negative) 02/20/25 12:37 Impressions Chest X-Ray 02/16/25 18:11 Chest radiograph, one view History: Chest pain Comparison: None Findings: Single AP view of the chest performed. No focal consolidation or pleural effusion. No pneumothorax. The cardiomediastinal silhouette is within normal limits. Normal pulmonary vascularity. No evidence for lymphadenopathy. No visualized bony or soft tissue abnormality. Impression: Normal chest radiograph Electronically signed by Jeyson Olmstead 02-16-2025 7:16 PM Ankle X-Ray 02/17/25 04:13 EXAM: XR ankle LT 2V CLINICAL HISTORY: Worsening pain/differential includes gout. TECHNIQUE: X-ray images of the left ankle were obtained in anteroposterior (AP), and lateral projections. COMPARISON: Prior ultrasound venous Doppler of the left lower limb dated 09/23/2024 was reviewed. FINDINGS: Bone Structure: There is significantly reduced bone mineralization. Degenerative osteoarthritic changes are noted in the visualized bones. Evidence of a calcaneal spur is present. There is no evidence of fracture or dislocation. No osseous lesions or abnormalities are identified. Soft Tissues: Vascular calcifications are noted. Diffuse soft tissue swelling is noted, with linear dense calcific foci. IMPRESSION: 1. There is reduced bone mineralization with degenerative changes. 2. Diffuse soft tissue swelling is noted, with linear dense calcific foci and advanced vascular calcifications. Needs clinical correlation. 3. There is no gross fracture or dislocation. 4. There is a plantar calcaneal spur. Disclaimer: A subtle bone abnormality or fracture may not be readily apparent on X-rays, thus clinical correlation and further imaging including follow-up CT, MRI, or follow-up X-rays are advised as needed. Electronically signed by Abran Adams 02-17-2025 08:[address] 02/18/25 08:56 Clinical history: Pain. Rule out abscess Technique: Axial computed tomography images were obtained of the left thigh without intravenous contrast. Sagittal and coronal reconstructions were obtained Findings: No fracture is identified. No subluxation or dislocation is seen. There is mild left hip and left knee osteoarthritis. No focal osseous lesion is evident There is diffuse subcutaneous edema that may be due to cellulitis. No clear abscess is seen. There are calcified uterine leiomyomas. There is an apparent peritoneal dialysis catheter. There is a small amount of ascites. There is a small knee effusion with a small Grewal's cyst. There is extensive multifocal atherosclerotic plaque. Impression: 1. No definite osteomyelitis or abscess 2. Subcutaneous edema that may be due to cellulitis 3. Ascites with a peritoneal dialysis catheter in place 4. Uterine leiomyomas 5. Mild osteoarthritis 6. Left knee effusion with a Grewal's cyst Electronically signed by Richard Hubbard 02-18-2025 09:[address] 02/18/25 08:56 Technique: Axial computed tomography images were obtained of the left lower leg without intravenous contrast. Sagittal and coronal reconstructions were obtained Findings: No fracture is identified. No subluxation or dislocation is seen. There are no significant arthritic changes. No focal osseous lesion is evident. There is osteopenia. There is no clear evidence of osteomyelitis. There is a plantar calcaneal spur The visualized musculature appears unremarkable. There is mild diffuse subcutaneous edema. There is multifocal atherosclerotic plaque. No definite soft tissue mass or focal fluid collection is seen. No foreign body is evident Impression: 1. Subcutaneous edema that may be due to cellulitis 2. No definite abscess or osteomyelitis Electronically signed by Richard Hubbard 02-18-2025 09:52 AM Foot MRI 02/19/25 14:05 EXAM: MR foot LT w/o con CLINICAL HISTORY: left ankle pain TECHNIQUE: MRI of the left foot was performed without intravenous contrast administration. Sequences obtained include sagittal T1-weighted, sagittal T2-weighted, coronal T1-weighted, coronal T2-weighted, axial T1-weighted, and axial T2-weighted images. COMPARISON: Comparison is made with prior plain X-ray of the ankle dated 02/17/2025. FINDINGS: Bone: A focus of high signal is seen in the subarticular surface of the medial cuneiform bone (arrow). Osteoarthritis of the first metatarsophalangeal joint is seen, with osteophytes of the articular surfaces. Tendons: Normal MRI appearance of the scanned compartmental longitudinal tendons. Muscles: The intrinsic plantar musculature of the foot shows high STIR/T2 signal. The visualized neurovascular structures do not reveal any obvious abnormality. Transverse and longitudinal arches of the foot are well maintained. Normal MRI appearance of the plantar fascia with no definite current MRI evidence to suggest plantar fasciitis. Soft Tissue: Diffuse soft tissue thickening and edema is seen, more on the plantar aspect. Irregular thickening of the plantar fascia is seen. IMPRESSION: 1. A focus of high signal is seen in the subarticular surface of the medial cuneiform bone (arrow), which can be related to marrow edema/osteochondral cyst correlating clinically; otherwise, no evidence of acute osteomyelitis. 2. Osteoarthritis of the first metatarsophalangeal joint is seen. 3. The intrinsic plantar musculature of the foot is edematous, which could be due to infection. 4. Diffuse soft tissue thickening and edema is seen, more on the plantar aspect, likely due to infection. 5. 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 Electronically signed by Abran Adams 02-19-2025 5:18 PM Lower Extremity MRI 02/19/25 14:06 EXAM: MR lower leg LT wo con CLINICAL HISTORY: left leg pain, r/o osteomyelitis, TECHNIQUE: Multiplanar, multi-echo MRI of the left tibia and fibula was performed without administration of intravenous contrast. COMPARISON: None. FINDINGS: Bones: There is normal alignment of the tibia and fibula. No fractures or dislocations are identified. No lytic or sclerotic lesions are present. There is no bone marrow edema or contusion. Joints: A cystic fluid collection is seen in the upper medial aspect of the leg, measuring approximately 17x11 mm. Grewal's cyst versus ganglion cyst. Osteoarthritis of the knee joint is present. Muscles: The muscles of the leg demonstrate patchy high STIR/T2 signal. Tendons and Ligaments: The major tendons and ligaments around the tibia and fibula are intact and demonstrate normal appearance. There is no evidence of tendinopathy, tendon tears, or ligamentous injury. Neurovascular Structures: The visualized neurovascular structures demonstrate normal appearance. There is no evidence of compression or abnormal signal changes. Soft Tissues: Diffuse subcutaneous edema and thickening are seen mainly in the upper medial aspect of the leg. IMPRESSION: 1. No signs of osteomyelitis. 2. Diffuse subcutaneous edema and thickening is seen mainly in the upper medial aspect of the leg, could be cellulitis. 3. A cystic fluid collection is seen in the upper medial aspect of the leg, measuring approximately 17x11 mm. Grewal's cyst versus ganglion cyst. 4. Osteoarthritis of the knee joint is present. 5. The muscles of the leg demonstrate patchy high STIR/T2 signal, myositis/muscle edema. Electronically signed by Abran Adams 02-19-2025 5:13 PM PG Care Time/CCT Total # of Minutes Spent Total Time Spent with Patient: Total time spent is greater than 50% in coordination of care (as documented) at patient's floor/unit and/or counseling patient: Coding Level of Care Code 06657 SUB INP/OBS CARE 05/21MIN Diagnoses Cellulitis of left lower extremity from knee to ankle L03.116 Dialysis patient Z99.2 Ambulatory dysfunction R26.2 Time Spent (min) 25
--- NOTE | 2025-02-21 15:35 | Ultrasound Report ---
US arterial duplex LE BI CLINICAL HISTORY: left leg pain, r/o PVD COMPARISON STUDY: None FINDINGS: Exam is limited due to edema and habitus. MAINE is unable to be obtained due to extensive melinda ma at the lower legs. The below the knee arteries are not visualized, possible due to edema. The comm on femoral arteries, superficial femoral arteries, and popliteal arteries are patent bilaterally. IMPRESSION: Limited exam as described. ACT 112: Negative or not required by law. Electronically signed by: Oseas Carmona M.D. 02/21/2025 3:34 PM
--- NOTE | 2025-02-21 15:54 | Magnetic Resonance Report ---
MR ankle LT wo con CLINICAL HISTORY: 74 years-old Female with Left heel ulcer; not visualized on foot/leg views. Chroni c nonhealing wound of the left hindfoot COMPARISON: MR left lower leg 02/19/2025, radiographs left ankle 02/17/2025 TECHNIQUE: Multiplanar, multi sequence MRI of the left ankle was performed with and without IV contra st. FINDINGS: Limited study. Only the sagittal STIR images were obtained, the patient then asked for the study be t erminated secondary to claustrophobia. There is a large plantar calcaneal enthesophytes redemonstrated. Extensive diffuse subcutaneous edema . No discrete drainable fluid collection identified. There is multifocal predominantly mild osteoarth ritis throughout the foot and ankle. Mild degenerative marrow edema of the forms. No marrow edema or osseous erosions of the calcaneus. Moderate thickening of the plantar fascia compatible with chronic fasciitis. Diffuse atrophy of the musculature compatible with chronic denervation change. IMPRESSION: 1. Limited exam. The study had to be prematurely aborted secondary to patient claustrophobia. 2. No MR evidence of acute osteomyelitis on the single sequence submitted. 3. Diffuse subcutaneous edema which may represent cellulitis, venous stasis or lymphedema 4. No discrete fluid collection identified to suggest abscess.. ACT 112: Negative or not required by law. The above report was generated using voice recognition software. It may contain grammatical, syntax o r spelling errors. Electronically signed by: Matthew Blair M.D. 02/21/2025 3:51 PM
[2025-02-21 16:03] LABS: Cdiff Toxin B Gene (2yr or >) Negative Cdiff Gene (Neg)
--- NOTE | 2025-02-21 16:35 | Podiatry Consultation ---
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 We discussed at length the etiology and treatment of her left foot pain. She has been Evaluated by orthopedics for her Grewal cyst visualized and advanced imaging of the left leg. There is no evidence of infection or source of pain to corroborate her pain on the leg and foot MRIs. Notably, no ankle MRI was obtained which would visualize the left heel ulceration better and, in addition, visualize the ankle joint itself. In order for this was placed. Without a portal for infection, its likely or at least possible that this is a gout attack to the left ankle. This would explain her significant pain despite her diabetic neuropathy otherwise. No surgical intervention is currently planned and she could be discharged to long-term care or rehab whenever she is stable per other specialties. We will continue to monitor, especially while waiting for the MRI and lab work to be performed. Thank you for the consult, we are always happy to help out. History of Present Illness Reason for Consultation: Left foot and ankle acute pain/cellulitis Attending Physician: Markel Looney DO History of Present Illness Patient seen at bedside at lunchtime. She states that she has been in and out of rehab facilities and was recently discharged home, but developed pain and further weakness. She sought treatment because of suspected infection to this left lower extremity and her right leg orthopedic hardware. She does have a history of gout but is unsure what her current pain is being caused by. She has had imaging of the left lower extremity that has been inconclusive other than revealing a Grewal's cyst to the knee. She currently is feeling better but still does feel weak. She believes that she is being forced out of the hospital, she states because she cannot sit upright for 30 minutes at a time. She does deny any other systemic signs or symptoms of infection at this time. Allergies Allergy/AdvReac Type Severity Reaction Status Date / Time insect venom Allergy Intermediate Swelling Verified 02/14/25 17:07 adhesive tape Allergy Mild Rash Verified 02/14/25 17:07 pollen extracts Allergy Mild "Seasonal Verified 02/14/25 17:07 allergies" dulaglutide [From Trulicity] AdvReac Mild Constipation, Verified 02/14/25 17:07 vomiting Home Medications Medication Instructions Recorded Confirmed Type lancets (Accu-Chek Fastclix Lancet #50 ea 12/16/18 02/10/25 History Drum) mecobalamin (vitamin B12) 1,000 1,000 mcg PO QPM 09/13/20 02/14/25 History mcg chewable tablet (B12 Active) blood sugar diagnostic (Accu-Chek 10/15/21 02/10/25 History SmartView Test Strips) cholecalciferol (vitamin D3) 62.5 62.5 mcg PO QPM 06/06/22 02/14/25 History mcg (2,500 unit) capsule Walking Cane #1 ea 06/30/23 02/10/25 Rx triamcinolone acetonide 0.1 % 1 applic topical BID PRN skin 07/28/23 02/14/25 History topical ointment issues pen needle, diabetic 32 gauge x #100 ea 08/24/23 02/10/25 Rx 5/32" (BD Nciki 2nd Gen Pen Needle) insulin degludec 100 unit/mL (3 30 unit subcut HS 03/15/24 02/14/25 History mL) subcutaneous pen (Tresiba FlexTouch U-100 insulin) blood-glucose sensor (FreeStyle #2 ea 08/16/24 02/10/25 Rx Kvng 3 Plus Sensor device) gentamicin 0.1 % topical cream 1 applic topical UD 08/24/24 02/14/25 History vitamin B complex and vitamin C 1 cap PO QPM 08/24/24 02/14/25 History no.20-folic acid 1 mg capsule (Triphrocaps) clopidogrel 75 mg tablet 75 mg PO QPM 12/07/24 02/14/25 History furosemide 80 mg tablet 80 mg PO BID 12/07/24 02/14/25 History insulin aspart U-100 100 unit/mL 8 unit subcut AC 12/07/24 02/14/25 History (3 mL) subcutaneous pen (Novolog FlexPen U-100 Insulin aspart) potassium chloride 10 mEq 40 meq PO QPM 12/07/24 02/14/25 History tablet,extended release buspirone 7.5 mg tablet 7.5 mg PO QPM #0 tabs 12/09/24 02/14/25 Rx cinacalcet 30 mg tablet (Sensipar) 30 mg PO DAILY 01/10/25 02/14/25 History rosuvastatin 40 mg tablet (Crestor) 40 mg PO PM 01/27/25 02/14/25 History zolpidem 10 mg tablet 10 mg PO HS #30 tabs 01/31/25 02/14/25 Rx metoprolol succinate 25 mg 25 mg PO QPM #90 tabs 02/08/25 02/14/25 Rx tablet,extended release 24 hr calcitriol 0.25 mcg capsule 0.5 mcg PO QPM 02/14/25 02/14/25 History pregabalin 25 mg capsule (Lyrica) 25 mg PO .COMPLEX pain #90 caps 02/14/25 02/14/25 Rx Patient History Medical History Elevated troponin Hyponatremia Hypokalemia Generalized weakness Anxiety Associated dyspnea per pulmonology Fracture of hip, right, closed (04/20/24) right femoral intertrochanteric fracture with mild gapping from a fall Acute cholecystitis Heart failure with preserved ejection fraction CAD (coronary artery disease) Obesity Non-ST elevation UT (NSTEMI) Pulmonary edema Folate deficiency anemia Metabolic acidosis AV fistula right arm--per pt not currently using yet Periodontal pocket Carious teeth Sleep apnea Per 2009 polysomnography (per 02/2021 pulmonology note)- pt declined treatment or repeat study-NO DEVICE Diastolic CHF Chronic kidney disease, stage 4 (severe) Secondary hyperparathyroidism of renal origin History of DVT (deep vein thrombosis) Multiple "small" DVTs (25+ years ago, 6 years ago) Fibroids History of hypothyroidism HX-NO MEDS Sensorineural hearing loss (SNHL) of both ears Family history of colon cancer in mother Surgical History Status post-operative repair of hip fracture Hx laparoscopic cholecystectomy (10/03/24) Robotic Laparoscopic Cholecystectomy(Not Applicable) - Oseas Madrigal, DO, FACS History of coronary artery stent placement S/P arteriovenous (AV) fistula creation RIGHT arm 03/27/21 @ [facility] Dr. Subramanian History of dental surgery History of surgery on arm Right Arm basilic vein transposition 2nd stage @ [facility] Dr. Subramanian 06/10/21 History of colonoscopy Family History Mother Diabetes Renal cell cancer Heart disease Colorectal cancer Hypertension Brother Diabetes Renal cell cancer Heart disease Lung cancer Hypertension Gallbladder disease Father Prostate cancer Heart disease Hypertension Grandmother (Maternal) Colorectal cancer Aunt Diabetes Other Alzheimer disease No family history of adverse response to anesthesia Denies family history of Ovarian cancer Myocardial infarction Breast cancer Social History Smoking Status: Never smoker Second Hand Exposure: No; Do You Dip or Chew Tobacco: No; Hx Alcohol Use: No Hx Substance Use: No Preferred Language: Khmer Communication Ability: Effective Visual Impairment: Limited Hearing Ability: Hard of Hearing [place] Required: No Beliefs That Will Affect Care: None marital status: Single Current Living Situation: Alone Current Living Situation Comment: has home health nursing current occupational status: retired current occupation: Retired How many Children do You have: 0 Feels Safe at Home: Yes Childhood Exposure to Second-Hand Smoke: No (very little ) Diet: diabetic caffeine: Yes (drinks iced tea every day, sometimes soda ) Dental Care, Regularly: Yes Physical Activity Frequency: 1-2 Times per Week Physical Activity Frequency Comment: weight training, walking Seatbelt Use: always Sunscreen Use: Yes (most times ) Assistive Devices: Walker and Wheelchair Review of Systems Review of Systems: All systems reviewed & are unremarkable except as noted in HPI & below Constitutional: + weakness; no fever, no chills and no f atigue Eyes: no problem reported Ear, Nose, Mouth, Throat: no problem reported Respiratory: no problem reported Cardiovascular: + edema; no problem reported Gastrointestinal: no nausea, no vomiting and no problem reported Genitourinary: no problem reported Musculoskeletal: no problem reported Integumentary: + erythema; no skin ulcer and no wounds Neurologic: + numbness and + paresthesia; no general ized weakness Psychiatric: no problem reported Physical Exam Physical Exam: Lower extremity focused exam: DP/PT pulses 2/4 bilaterally. CFT is brisk to the digits. Erythema is noted globally to the left foot and ankle with pain out of proportion to touch of the foot and ankle. There is pain on palpation of the heel specifically where a stage II heel ulceration is noted. There is no evidence of local infection here, with no active bleeding or drainage and simply damage to the foot from pressure. No use of her heel offloading boots is noted and she is laying barefoot in her bed currently. No loss of protective sensati on is noted. No abnormal reflexes are noted. Constitutional: WD/WN, vitals as above + ill appearing and + obese; no acute distress Eyes: PERRL, conjunctivae normal, anicteric sclerae ENMT: external ear and nose normal, oropharynx normal Neck: trachea midline, no thyromegaly normal visual inspection Respiratory: normal respiratory effort; no respiratory distress Cardiovascular: Rate/Rhythm: regular rate and regular rhythm Vessels: posterior tibial pulses present and dorsalis pedis pulses present Chest (Breasts): Chest: normal inspection of chest Gastrointestinal (Abdomen): Inspection/Auscultation: abdomen normal to inspection Percussion/Palpation: + abdomen tender and abdomen soft Musculoskeletal: no cyanosis or clubbing, extremities motor strength 5/5 Head/Neck/Chest: normocephalic and head atraumatic Extremities: extremities normal to inspection Neurologic: awake; no focal motor deficits Psychiatric: A+Ox3, euthymic affect Results & Data Vital Signs (Past 12 Hours) Vital Signs Temp Pulse Resp BP Pulse Ox O2 Del Method 02/21/25 07:50 Room Air 02/21/25 07:35 36.6 C 89 20 128/78 99 Room Air
[2025-02-21] MEDS: VANCOMYCIN HCL 250 MG CAP PO SCH (16:44)
--- NOTE | 2025-02-22 09:36 | Nephrology Progress Note ---
Date of Service February 22, 2025 Assessment & Plan (1) ESRD (end stage renal disease): (2) Hypertension: (3) Anemia: (4) Cellulitis of left lower extremity from knee to ankle: Plan 73-year-old female with end-stage kidney disease on PD (EDW 78kg). Admitted with left lower extremity pain and cellulitis, initially started on cefepime and daptomycin but now switched to daptomycin and Zosyn after having it. Of confusion which is most likely medication related. Clinically she improved and seems to be at her baseline without any confusion. Yesterday she was noted to be volume depleted with hypotension and switched to Delflex 1.5% with bradycardia on dialysis. Ultrafiltration slightly dropped to 750 mL but volume status and blood pressure reasonable. Has h/o chronic lower extremity venous insufficiency s/p venous ablation 11/23/24. Hemoglobin low. Had hemodialysis Thursday. Overall doing well, clinically stable. LE duplex inconclusive due to edema, could not complete MRI. Had UF 850 ml overnight. --change Delflex to 1.5% alternate with 2.5 % tonight --increase Lasix to 80 mg bid --Epogen 61096 units x 1 dose given on 02/20/25 --waiting on rehab at [facility]. --continue calcitriol Admission and Anticipated Discharge Date Admission Date: February 16, 2025 Roman Dyson was seen and evaluated this morning. She has been doing well but continues to have some pain in left leg. Has been having dialysis overnight, yesterday had Delflex 1.5% and had ultrafiltration of around 850 mL, blood pressure slightly low this morning but asymptomatic, volume status acceptable. Electrolyte acceptable. Hemoglobin stable. LE duplex inconclusive due to edema, could not complete MRI. Waiting on rehab at [facility]. Review of Systems Review of Systems: Detailed review of system was done and pertinent positives and negatives are mentioned above. Physical Exam Constitutional: WD/WN, vitals as above no acute distress Respiratory: no respiratory distress Auscultation: lungs clear to auscultation bilaterally Cardiovascular: Rate/Rhythm: regular rate and regular rhythm Extremities: + edema and + AV fistula (with bruit, aneurysm) Skin: + turgor decreased and + erythema; no ra shes Neurologic: no focal motor deficits Psychiatric: Orientation: alert and oriented x 3 Results & Data Vital Signs (Past 12 Hours) Vital Signs Temp Pulse Pulse Resp BP Pulse Ox Pulse Ox 10/29/25 07:49 36.7 C 88 20 95/43 L 98 02/22/25 07:41 86 02/22/25 02:41 102/50 L 02/22/25 02:34 36.7 C 91 H 18 94/43 L 95 02/22/25 01:00 95 02/21/25 22:57 36.9 C 92 H 16 133/78 100 02/21/25 22:23 02/21/25 22:03 98 H O2 Del Method O2 Del Method 02/22/25 07:49 Room Air 02/22/25 07:41 02/22/25 02:41 02/22/25 02:34 Room Air 02/22/25 01:00 Room Air 02/21/25 22:57 Room Air 02/21/25 22:23 Room Air 02/21/25 22:03 PG Care Time/CCT Total # of Minutes Spent Total Time Spent with Patient: Total time spent is greater than 50% in coordination of care (as documented) at patient's floor/unit and/or counseling patient: Coding Level of Care Code 56608 SUB INP/OBS CARE 2MIN Diagnoses ESRD (end stage renal disease) N18.6 Essential hypertension I10 Hypertension type: essential hypertension Anemia D64.9 Cellulitis of left lower extremity from knee to ankle L03.116 (2) Hypertension Hypertension type: essential hypertension Qualified Code(s): I10 - Essential (primary) hypertension
--- NOTE | 2025-02-22 09:58 | Hospitalist Progress Note ---
Date of Service February 22, 2025 Assessment & Plan (1) Cellulitis of left lower extremity from knee to ankle: (2) Dialysis patient: (3) Ambulatory dysfunction: Plan 1) Cellulitis of left lower extremity from knee to ankle: (2) MRSA infection: (3) ESRD on peritoneal dialysis: (4) Type 2 diabetes mellitus with obesity: Plan Karis Guthrie 74-year-old female with a PMH ESRD on peritoneal dialysis, AV fistula malfunction, MRSA infection, diabetes mellitus, anemia, ambulatory dysfunction, chronic venous insufficiency, history of pressure ulcers in buttock and coccygeal region, history of venous ulcers of bilateral lower extremities, gout, she's following with wound care center for her lower extremity wound and pressure ulcer she's has multiple near fall episode at home. She been left lower extremity swelling, erythema and worsening pain of the left lower extremity including ankle. She had undergone a venous Doppler of left lower extremity, which did show superficial venous thrombus, but no deep venous thrombosis She has also been following with orthopedic surgery for a left Grewal's cyst. went to ER on 02/16, after having the pain in her left leg progressing to the point that she can no longer walk. She has not fallen, but has almost fallen a number of occasions. In the emergency department this evening, she was given fentanyl 50 mcg IV with only minimal improvement in pain, and was started on cefepime 2 g IV. Chest x-ray was ordered, and it was negative. she was on cefepime 2g IV for left leg celllulitis and daptomcyin she was switched to zosyn on 02/18 (thursday), and pain improving. Cellulitis of left lower extremity/presumptive gout flare left ankle- superficial thrombus, hx of MRSA infection. f/u on arterial US her MRI found sub-Q edema in the upper medial aspect of her leg. also found cystis fluid collection in the upper medial aspect of the leg communicated [facility] ID, she's on unasyn 1.5 q12 hours and daptomycin 500mg q48 hours I tobias c/w unasyn and daptomycin for another 24-48 hours if she's improving, potential switching to augmentin 500mg q12 hours (renally dose for PD) and linezolid 600mg PO BID she's was seen by orthopedic and suspect potential for muscle tear deposition can placed to [facility] tomorrow with antibiotics for cellulitis left ankle pain foot MRI on 02/19 found high signal in the medial cunefirom bone. suspect gout flare up f/u on uric acid level hypotension episode-metoprolol being held ESRD on peritoneal dialysis/failure of AV fistula/hypertension- spoke with Dr. Bragg; nephrology plan for PD in the evening Continue usual medications of cholecalciferol, Cinacalcet, Triphrocaps her metoprolol being held given hypotension furosemide, potassium chloride, Plavix, Diabetes mellitus- Change insulin degludec from 30 units subcu at bedtime glargine 20 units subcu at bedtime Placed on Accu-Cheks with NovoLog SSI Depression/anxiety/insomnia- Continue zolpidem at bedtime, buspirone Hyperlipidemia- Hold rosuvastatin while on daptomycin Hypomagnesemia- Magnesium 1.6 on admission Allowed to be corrected through ED Anemia of chronic kidney disease- Hemoglobin 9.2 is in her usual range Left lower extremity superficial venous thrombosis- As noted on venous Doppler of 02/10/2025, with no DVT noted Not a candidate for anti-inflammatories unless we use steroids Admission and Anticipated Discharge Date Admission Date: February 16, 2025 Subjective patient seen this morning, her left ankle pain is improving with IV antibiotics she has isolated nausea and vomiting, that has since resolved she's tolerating her breakfast this morning seen by podiatry and orthopedic for her left leg pain she's is agreeable for placement to [facility] tomorrow suspect left ankle pain related to cellulitis and gout attack, started on prednisone low dose for 5 days Physical Exam Physical Exam: VITALS: Reviewed. WEIGHT/BMI reviewed. GEN: Healthy appearing, well-developed, NAD. PSYCH: Good Judgment. AOx3. Normal memory, mood, and affect. HEENT -Head: NC/AT; -Mouth and throat: MMM. Normal gums, muc josej , palate,. Good dentition. NECK: Supple, with no masses. CV: RRR, no m/r/g. LUNGS: CTAB, no w/r/c. ABD: Soft, NT/ND, NBS, no masses or organomegaly. SKIN: no discharge noted MSK: left ankle pain, left leg pain NEURO:AAOx3 Results & Data Results & Data Vital Signs (Past 12 Hours) Vital Signs Temp Pulse Pulse Resp BP Pulse Ox Pulse Ox 02/22/25 07:49 36.7 C 88 20 95/43 L 98 02/22/25 07:41 86 02/22/25 02:41 102/50 L 02/22/25 02:34 36.7 C 91 H 18 94/43 L 95 02/22/25 01:00 95 02/21/25 22:57 36.9 C 92 H 16 133/78 100 02/21/25 22:23 02/21/25 22:03 98 H O2 Del Method O2 Del Method 02/22/25 07:49 Room Air 02/22/25 07:41 02/22/25 02:41 02/22/25 02:34 Room Air 02/22/25 01:00 Room Air 02/21/25 22:57 Room Air 02/21/25 22:23 Room Air 02/21/25 22:03 Laboratory Results Laboratory Results - last 72 hr 02/19/25 02/19/25 02/19/25 11:09 16:14 20:37 WBC RBC Hgb Hct MCV MCH MCHC RDW Std Deviation RDW Coeff of Poornima Plt Count MPV Sodium Potassium Chloride Carbon Dioxide Anion Gap BUN Creatinine Est Cr Clr Drug Dosing eGFR BUN/Creatinine Ratio Glucose POC Glucose 128 H 105 H 296 H Uric Acid Calcium Magnesium TSH Urine Color Urine Appearance Urine pH Ur Specific Wyatt Urine Protein Urine Glucose (UA) Urine Ketones Urine Blood Urine Nitrite Urine Bilirubin Urine Urobilinogen Ur Leukocyte Esterase Urine WBC (Auto) Urine RBC (Auto) U Hyaline Cast (Auto) U Epithel Cells (Auto) Urine Bacteria (Auto) Urine Yeast Urine Comment Nasal Screen MRSA (PCR) Stl C. diff Tox B Gene Stl C. diff [id number] 02/19/25 02/20/25 02/20/25 Unknown 05:53 07:03 WBC 9.10 RBC 2.58 L Hgb 8.6 L Hct 26.2 L MCV 101.6 H MCH 33.3 MCHC 32.8 RDW Std Deviation 52.5 H RDW Coeff of Poornima 14.5 Plt Count 220 MPV 10.7 Sodium 128 L Potassium 5.3 H Chloride 94 L Carbon Dioxide 24 Anion Gap 10 BUN 39 H Creatinine 7.08 H* Est Cr Clr Drug Dosing 6.9 eGFR 5.58 BUN/Creatinine Ratio 5.5 L Glucose 225 H POC Glucose 188 H Uric Acid Calcium 8.3 L Magnesium 1.5 L TSH 2.637 Urine Color Yellow Urine Appearance Turbid A Urine pH 7.5 Ur Specific Wyatt 1.011 Urine Protein 3+ H Urine Glucose (UA) Trace H Urine Ketones Negative Urine Blood 3+ H Urine Nitrite Negative Urine Bilirubin Negative Urine Urobilinogen Negative Ur Leukocyte Esterase 3+ H Urine WBC (Auto) >50 H Urine RBC (Auto) >20 H U Hyaline Cast (Auto) 6-10 H U Epithel Cells (Auto) >20 H Urine Bacteria (Auto) 3+ H Urine Yeast Present A Urine Comment Nasal Screen MRSA (PCR) Stl C. diff Tox B Gene Stl C. diff [id number] 02/20/25 02/20/25 02/20/25 11:14 12:37 16:54 WBC RBC Hgb Hct MCV MCH MCHC RDW Std Deviation RDW Coeff of Poornima Plt Count MPV Sodium Potassium Chloride Carbon Dioxide Anion Gap BUN Creatinine Est Cr Clr Drug Dosing eGFR BUN/Creatinine Ratio Glucose POC Glucose 120 H 203 H Uric Acid Calcium Magnesium TSH Urine Color Urine Appearance Urine pH Ur Specific Wyatt Urine Protein Urine Glucose (UA) Urine Ketones Urine Blood Urine Nitrite Urine Bilirubin Urine Urobilinogen Ur Leukocyte Esterase Urine WBC (Auto) Urine RBC (Auto) U Hyaline Cast (Auto) U Epithel Cells (Auto) Urine Bacteria (Auto) Urine Yeast Urine Comment Nasal Screen MRSA (PCR) Negative Stl C. diff Tox B Gene Stl C. diff [id number] 02/20/25 02/21/25 02/21/25 20:28 06:02 08:09 WBC 11.05 H RBC 2.72 L Hgb 9.5 L Hct 27.2 L MCV 100.0 MCH 34.9 H MCHC 34.9 RDW Std Deviation 50.9 H RDW Coeff of Poornima 14.1 Plt Count 246 MPV 10.5 Sodium 129 L Potassium 4.8 Chloride 93 L Carbon Dioxide 22 Anion Gap 14 H BUN 35 H Creatinine 6.81 H* Est Cr Clr Drug Dosing 7.3 eGFR 5.84 BUN/Creatinine Ratio 5.1 L Glucose 194 H POC Glucose 195 H 173 H Uric Acid 5.0 Calcium 8.5 L Magnesium 1.5 L TSH Urine Color Urine Appearance Urine pH Ur Specific Wyatt Urine Protein Urine Glucose (UA) Urine Ketones Urine Blood Urine Nitrite Urine Bilirubin Urine Urobilinogen Ur Leukocyte Esterase Urine WBC (Auto) Urine RBC (Auto) U Hyaline Cast (Auto) U Epithel Cells (Auto) Urine Bacteria (Auto) Urine Yeast Urine Comment Nasal Screen MRSA (PCR) Stl C. diff Tox B Gene Stl C. diff [id number] 02/21/25 02/21/25 02/21/25 11:43 20:57 20:59 WBC RBC Hgb Hct MCV MCH MCHC RDW Std Deviation RDW Coeff of Poornima Plt Count MPV Sodium Potassium Chloride Carbon Dioxide Anion Gap BUN Creatinine Est Cr Clr Drug Dosing eGFR BUN/Creatinine Ratio Glucose POC Glucose 143 H 310 H* 279 H Uric Acid Calcium Magnesium TSH Urine Color Urine Appearance Urine pH Ur Specific Wyatt Urine Protein Urine Glucose (UA) Urine Ketones Urine Blood Urine Nitrite Urine Bilirubin Urine Urobilinogen Ur Leukocyte Esterase Urine WBC (Auto) Urine RBC (Auto) U Hyaline Cast (Auto) U Epithel Cells (Auto) Urine Bacteria (Auto) Urine Yeast Urine Comment Nasal Screen MRSA (PCR) Stl C. diff Tox B Gene Stl C. diff [id number] 02/21/25 02/21/25 02/22/25 21:01 Unknown 05:46 WBC RBC Hgb Hct MCV MCH MCHC RDW Std Deviation RDW Coeff of Poornima Plt Count MPV Sodium Potassium Chloride Carbon Dioxide Anion Gap BUN Creatinine Est Cr Clr Drug Dosing eGFR BUN/Creatinine Ratio Glucose POC Glucose 274 H Uric Acid Calcium Magnesium 1.5 L TSH Urine Color Urine Appearance Urine pH Ur Specific Wyatt Urine Protein Urine Glucose (UA) Urine Ketones Urine Blood Urine Nitrite Urine Bilirubin Urine Urobilinogen Ur Leukocyte Esterase Urine WBC (Auto) Urine RBC (Auto) U Hyaline Cast (Auto) U Epithel Cells (Auto) Urine Bacteria (Auto) Urine Yeast Urine Comment Nasal Screen MRSA (PCR) Stl C. diff Tox B Gene Negative Cdiff Gene Stl C. diff [id number] NEGATIVE 02/22/25 08:03 WBC RBC Hgb Hct MCV MCH MCHC RDW Std Deviation RDW Coeff of Poornima Plt Count MPV Sodium Potassium Chloride Carbon Dioxide Anion Gap BUN Creatinine Est Cr Clr Drug Dosing eGFR BUN/Creatinine Ratio Glucose POC Glucose 153 H Uric Acid Calcium Magnesium TSH Urine Color Urine Appearance Urine pH Ur Specific Wyatt Urine Protein Urine Glucose (UA) Urine Ketones Urine Blood Urine Nitrite Urine Bilirubin Urine Urobilinogen Ur Leukocyte Esterase Urine WBC (Auto) Urine RBC (Auto) U Hyaline Cast (Auto) U Epithel Cells (Auto) Urine Bacteria (Auto) Urine Yeast Urine Comment Nasal Screen MRSA (PCR) Stl C. diff Tox B Gene Stl C. diff [id number] Medications Administered Current Inpatient Medications Acetaminophen (Acetaminophen 325 Mg Tab) 650 mg PO Q4H PRN PRN Reason: Pain or Fever Stop: 03/18/25 23:19 Last Admin: 02/19/25 22:02 Dose: 650 mg Buspirone HCl (Buspirone 7.5 Mg Tab) 7.5 mg PO QPM EARNESTINE Stop: 03/19/25 20:59 Last Admin: 02/21/25 21:26 Dose: 7.5 mg Calcitriol (Calcitriol 0.25 Mcg Capsule) 0.5 mcg PO QPM EARNESTINE Stop: 03/19/25 20:59 Last Admin: 02/21/25 21:25 Dose: 0.5 mcg Cinacalcet (Cinacalcet Hcl 30 Mg Tab) 30 mg PO DAILY EARNESTINE Stop: 03/19/25 08:59 Last Admin: 02/21/25 10:21 Dose: 30 mg Clopidogrel Bisulfate (Clopidogrel Bisulfate 75 Mg Tab) 75 mg PO QPM EARNESTINE Stop: 03/19/25 20:59 Last Admin: 02/21/25 21:26 Dose: 75 mg Colchicine (Colchicine 0.6 Mg Tab) 0.3 mg PO DAILY PRN PRN Reason: gout Stop: 03/19/25 08:59 Cyanocobalamin (Cyanocobalamin (B-12) 500 Mcg Tablet) 1,000 mcg PO QPM EARNESTINE Stop: 03/19/25 20:59 Last Admin: 02/21/25 21:26 Dose: 1,000 mcg Dextrose (Dextrose 50% 50 Ml Syringe) 25 - 50 ml IV UD PRN; Protocol PRN Reason: Hypoglycemia Protocol Stop: 03/18/25 23:19 Furosemide (Furosemide 80 Mg Tab) 80 mg PO [id number] EARNESTINE Stop: 03/24/25 16:59 Gentamicin Sulfate (Gentamicin Sulfate 0.1% Cr 15 Gm Tube) 1 appln EXT DAILY EARNESTINE Stop: 02/27/25 08:59 Last Admin: 02/20/25 18:39 Dose: 1 appln Glucagon (Glucagon For Inj 1 Mg Vial) 1 mg SQ UD PRN; Protocol PRN Reason: Hypoglycemia Protocol Stop: 03/18/25 23:19 Glucose (Glucose 40% Gel 15 Gm Tube) 15 - 30 gm PO UD PRN; Protocol PRN Reason: Hypoglycemia Protocol Stop: 03/18/25 23:19 Glucose (Glucose 10 Tab/Tube) 4 - 8 tab PO UD PRN; Protocol PRN Reason: Hypoglycemia Protocol Stop: 03/18/25 23:19 Heparin Sodium (Porcine) (Heparin Sod 5,000 Unit/0.5 Ml Vial) 5,000 units SQ Q12 EARNESTINE Stop: 03/19/25 08:59 Last Admin: 02/21/25 21:27 Dose: Not Given Hydralazine HCl (Hydralazine Hcl 20 Mg/Ml Vial) 10 mg IV Q4H PRN PRN Reason: SBP above 160 Stop: 03/18/25 22:04 Hydromorphone HCl (Hydromorphone Inj 0.5 Mg/0.5 Ml Syr) 0.25 mg IV Q3H PRN PRN Reason: Severe Pain (Scale 7, 8, 9,10) Stop: 03/03/25 00:49 Last Admin: 02/19/25 13:14 Dose: 0.25 mg Daptomycin 500 mg/ Syringe 10 mls @ 5 mls/min IV Q48H [facility]; Protocol Stop: 02/24/25 04:59 Last Admin: 02/21/25 05:17 Dose: 5 mls/min Ampicillin Sodium/Sulbactam Sodium (Unasyn) 1,500 mg in 100 mls @ 200 mls/hr IV Q12 EARNESTINE Stop: 02/27/25 20:59 Last Infusion: 02/21/25 22:42 Dose: Infused Insulin Aspart (Insulin Aspart Per Unit Charge) 0 units SC ACHS EARNESTINE Stop: 03/19/25 07:29 Last Admin: 02/21/25 21:23 Dose: 7 units Insulin Glargine (Lantus Per Unit Charge) 20 units SQ HS [facility] Stop: 03/19/25 20:59 Last Admin: 02/21/25 21:23 Dose: 20 units Metoprolol Succinate (Metoprolol Succ 25mg Ext Rel Tab) 25 mg PO QPM EARNESTINE Stop: 03/19/25 20:59 Last Admin: 02/17/25 20:43 Dose: 25 mg Miscellaneous (Carbohydrates For Hypoglycemia ) 15 - 30 gm PO UD PRN PRN Reason: Hypoglycemia Protocol Stop: 03/18/25 23:19 Ondansetron HCl (Ondansetron Inj 2 Mg/Ml 2 Ml Vial) 4 mg IV Q6H PRN PRN Reason: Nausea Stop: 03/18/25 23:19 Last Admin: 02/20/25 18:21 Dose: 4 mg Potassium Chloride (Potassium Chloride 10 Meq Tabcr) 40 meq PO QPM EARNESTINE Stop: 03/19/25 20:59 Last Admin: 02/21/25 21:23 Dose: 40 meq Prednisone (Prednisone 20 Mg Tab) 20 mg PO DAILY EARNESTINE Stop: 02/26/25 10:59 Tramadol HCl (Tramadol Hcl 50 Mg Tablet) 50 mg PO Q4H PRN PRN Reason: Moderate Pain (Scale 4, 5, 6) Stop: 03/18/25 22:02 Last Admin: 02/19/25 11:30 Dose: 50 mg Vitamin D (Cholecalciferol 125 Mcg (5,000 Units) Tab) 62.5 mcg PO QPM EARNESTINE Stop: 03/19/25 20:59 Last Admin: 02/21/25 21:26 Dose: 62.5 mcg Zolpidem Tartrate (Zolpidem Tartrate 5 Mg Tab) 10 mg PO HS EARNESTINE Stop: 03/19/25 20:59 Last Admin: 02/21/25 21:32 Dose: 10 mg PG Care Time/CCT Total # of Minutes Spent Total Time Spent with Patient: Total time spent is greater than 50% in coordination of care (as documented) at patient's floor/unit and/or counseling patient: Coding Level of Care Code 76110 SUB INP/OBS CARE 05/21MIN Diagnoses Cellulitis of left lower extremity from knee to ankle L03.116 Dialysis patient Z99.2 Ambulatory dysfunction R26.2 Time Spent (min) 20
[2025-02-22] MEDS: predniSONE 20 MG TAB PO SCH (13:12)
--- NOTE | 2025-02-22 14:55 | Infectious Disease Progress Nt ---
Date of Service February 22, 2025 Assessment & Plan (1) Cellulitis of left lower extremity from knee to ankle: (2) Left leg pain: Plan ID Problem List: # LLE SSTI/myositis, improving # L ankle pain, improving # L calf pain, improving # ESRD on peritoneal dialysis # Type 2 DM Impression: Margaux Contreras is a 74-year-old woman with history of ESRD on PD, history of AV fistula malfunction, T2DM, history of sacral/coccyx pressure u lcers, chronic venous insufficiency, history of venous ulcers of bilateral lower extremities, gout, who presents to [facility] on 02/16/25 with worsening LLE swelling, erythema, and pain. ID is consulted for LLE SSTI. She was recently admitted to [facility] from 12/0712/09/24 for RLE wound and cellulitis. Wound Cx grew MSSA. She was initially on pip-tazo and daptomycin while inpatient, and transitioned to clindamycin 300 mg QID x 5 more days upon discharge. The patient been having left lower extremity swelling, erythema, and pain. She was seen at an outpatient visit by her PCP on 02/10/25 at which time she underwent LLE ultrasound that was negative for DVT, but did show superficial venous thrombus. She has also been following with orthopedic surgery for a left Grewal's cyst. Her LLE pain and swelling continued to progress, and she presented to the ED on 02/16. In the ED, afebrile, WBC 10.91. She was started on daptomycin and cefepime. 02/18 LLE/femur CT with edema, no definitive abscess or osteomyelitis; L knee effusion with Bakers cyst. 02/19 MRI LLE with edema c/w cellulitis; no e/o osteomyelitis, cystic fluid collection 17x11 mm in the upper medial LLE c/w Bakers cyst vs. ganglion cyst; high STIR/T2 signal intensity of leg muscles c/w myositis. 02/19 MRI L foot showed a focus of high signal in the subarticular surface of the medial cuneiform bone which can be from marrow edema/osteochondral cyst and otherwise without e/o acute osteomyelitis; edema of the plantar soft tissue including muscle c/f infection. Discussion Pt presenting with significant myositis/SSTI of the LLE. Imaging without abscess or e/o osteomyelitis. This is most likely a bacterial infection, such as with Staph or Strep. Note prior wound Cx of the RLE from earlier this year with both MRSA (07/2024) and MSSA (08/2024 and 11/2024). BCx from 02/16 remain NGTD. Wound Cx from 02/13 are NG. Pt has had significant improvement of her leg erythema on antibiotics, however continues to have L ankle pain and L calf pain. Note 02/19 MRI L foot showed a focus of high signal in the subarticular surface of the medial cuneiform bone which can be from marrow edema/osteochondral cyst and otherwise without e/o acute osteomyelitis. Per orthopedic surgery evaluation on 02/21, the patients calf pain may be d/t a muscular tear. The cellulitis was felt to be improving with minimal erythema, and no warmth or fluctuance. Ortho is also following along for the patients known L Bakers cyst. 02/21 L ankle MRI was a limited exam (ended early d/t pt claustrophobia) but without e/o osteomyelitis, no abscess. I discussed with Dr. Looney on 02/22, the patients ankle pain has significantly improved, which is also reassuring against deeper infection. Will continue empiric abx, can continue daptomycin and amp/sulbactam. If improving and discharging, anticipate possible transition to linezolid and amox- clav to complete an longer (14-day) course with close follow-up. Recommendations: - Continue daptomycin 500 mg IV q48h (renally dosed) - Continue amp/sulbactam 1.5 g IV q12h (renally dosed for PD) - If improving and discharging, anticipate possible transition to PO abx (linezolid 600 mg PO BID + amox-clav 500 mg PO q12h, renally dosed for PD) to complete a 14-day course (through 03/02/25) - F/u 02/16 BCx until finalized to ensure remains negative Plan discussed with primary team. Thank you for letting ID participate in the care of this patient. ID will sign off at this time. If questions, [facility] at [phone]. Tamra Fields MD, MHS Infectious Diseases [facility]/ID Connect ID Connect direct line: [phone] Admission and Anticipated Discharge Date Admission Date: February 16, 2025 Subjective This patient recommendation is based on a telemedicine consult request which was completed asynchronously through chart review and information provided by the primary physician. The patient was not seen or examined today. The evaluation is consultative in nature and all patient care and treatment decisions can either be accepted or rejected by the patient's primary hospital-based treating physician using their own independent medical judgment for their patient. PLEASE NOTE: E-consult was performed for this visit given lack of telepresenter availability. Time Spent Reviewing Chart: 31+ minutes PLEASE NOTE: E-consult was performed for this visit given lack of telepresenter availability. - Afebrile - 02/21 L ankle MRI was a limited exam (ended early d/t pt claustrophobia) but without e/o osteomyelitis, no abscess. - I discussed with Dr. Looney on 02/22, the patients ankle pain has significantly improved. She will likely discharge to [facility] tomorrow Results & Data Vital Signs (Past 12 Hours) Vital Signs Temp Pulse Pulse Resp BP Pulse Ox O2 Del Method 02/22/25 11:48 36.7 C 88 20 135/70 97 Room Air 02/22/25 07:49 36.7 C 88 20 95/43 L 98 Room Air 02/22/25 07:41 86 Laboratory Results Diagnostics: 02/21 L ankle MRI 1. Limited exam. The study had to be prematurely aborted secondary to patient claustrophobia. 2. No MR evidence of acute osteomyelitis on the single sequence submitted. 3. Diffuse subcutaneous edema which may represent cellulitis, venous stasis or lymphedema 4. No discrete fluid collection identified to suggest abscess.. 02/19 MRI LLE 1. No signs of osteomyelitis. 2. Diffuse subcutaneous edema and thickening is seen mainly in the upper medial aspect of the leg, could be cellulitis. 3. A cystic fluid collection is seen in the upper medial aspect of the leg, measuring approximately 17x11 mm. Grewal's cyst versus ganglion cyst. 4. Osteoarthritis of the knee joint is present. 5. The muscles of the leg demonstrate patchy high STIR/T2 signal, myositis/muscle edema. 02/19 MRI L foot 1. A focus of high signal is seen in the subarticular surface of the medial cuneiform bone (arrow), which can be related to marrow edema/osteochondral cyst correlating clinically; otherwise, no evidence of acute osteomyelitis. 2. Osteoarthritis of the first metatarsophalangeal joint is seen. 3. The intrinsic plantar musculature of the foot is edematous, which could be due to infection. 4. Diffuse soft tissue thickening and edema is seen, more on the plantar aspect, likely due to infection. 5. 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 02/[address] 1. Subcutaneous edema that may be due to cellulitis 2. No definite abscess or osteomyelitis 02/[address] 1. No definite osteomyelitis or abscess 2. Subcutaneous edema that may be due to cellulitis 3. Ascites with a peritoneal dialysis catheter in place 4. Uterine leiomyomas 5. Mild osteoarthritis 6. Left knee effusion with a Grewal's cyst Micro Data: 02/19 UCx: mixed growth 02/16 BCx x2: NGTD 02/13 RLE wound Cx: NG prior micro 12/14 buttock wound Cx: GI linda 12/07 R foot wound Cx: MSSA 09/14/24 R foot wound Cx: MSSA 08/10/24 R foot wound Cx: MRSA 08/10/24 L buttock wound Cx: E. faecalis, C. albicans Antibiotic Summary: daptomycin (02/16 present) amp-sulb (02/20 present) prior cefepime (02/16 02/18) pip-tazo (02/18 02/20)
[2025-02-22 16:22] LABS: Hep B Surface Ag with confirm Negative (Negative)
--- NOTE | 2025-02-22 16:49 | Podiatry Progress Note ---
Date of Service February 22, 2025 Assessment & Plan (1) Cellulitis of left lower extremity from knee to ankle: (2) Dialysis patient: (3) Left leg pain: (4) Diabetes: (5) Gout: Plan Patient was examined and evaluated. - Her significant lower extremity pain is still more consistent with an acute gout flare rather than cellulitis of unknown origin. - Her uric acid was within normal limits, though this can often be seen during the acute attack as well. - Either way, she is significant improved and can be discharged from our perspective to inpatient rehab for strengthening and conditioning. - No surgical or mention is planned for the left ankle or left heel. - Of note, she does have heel offloading boots at bedside but she has not been wearing them while I have seen her. She would benefit from spending the vast majority of her time in bed in these boots to encourage healing of this heel wound. - We will sign off for now and anticipate discharge in the next day or so. Please reconsult as necessary. Thank you for allowing us to participate in her care. Admission and Anticipated Discharge Date Admission Date: February 16, 2025 Subjective Patient seen at bedside. No new concerns. She was able to only tolerate the MRI for a short period of time prior to developing claustrophobia. Otherwise though her pain has improved significantly since yesterday. She states her lower extremity feels much better with her current medication. She is still working on increasing her mobility with physical therapy. Review of Systems Constitutional: + weakness; no fever, no chills and no f atigue Eyes: no problem reported Ear, Nose, Mouth, Throat: no problem reported Respiratory: no problem reported Cardiovascular: + edema; no problem reported Gastrointestinal: no nausea, no vomiting and no problem reported Genitourinary: no problem reported Musculoskeletal: no problem reported Integumentary: + erythema; no skin ulcer and no wounds Neurologic: + numbness and + paresthesia; no general ized weakness Psychiatric: no problem reported Physical Exam Physical Exam: Lower extremity focused exam: DP/PT pulses 2/4 bilaterally. CFT is brisk to the digits. Erythema is noted globally to the left foot and ankle with pain out of proportion to touch of the foot and ankle. There is pain on palpation of the heel specifically where a stage II heel ulceration is noted. There is no evidence of local infection here, with no active bleeding or drainage and simply damage to the foot from pressure. No use of her heel offloading boots is noted and she is laying barefoot in her bed currently. No loss of protective sensation is noted. No abnormal reflexes are noted. MR imaging of the ankle does reveal no significant drainable abscess and no evidence of osteomyelitis to the calcaneus. The diffuse soft tissue and subcutaneous edema is noted, consistent with both the foot and leg MRIs. Constitutional: WD/WN, vitals as above + ill appearing and + obese; no acute distress Eyes: PERRL, conjunctivae normal, anicteric sclerae ENMT: external ear and nose normal, oropharynx normal Neck: trachea midline, no thyromegaly normal visual inspection Respiratory: normal respiratory effort; no respiratory distress Cardiovascular: Rate/Rhythm: regular rate and regular rhythm Vessels: posterior tibial pulses present and dorsalis pedis pulses present Chest (Breasts): Chest: normal inspection of chest Gastrointestinal (Abdomen): Inspection/Auscultation: abdomen normal to inspection Percussion/Palpation: + abdomen tender and abdomen soft Musculoskeletal: no cyanosis or clubbing, extremities motor strength 5/5 Head/Neck/Chest: normocephalic and head atraumatic Extremities: extremities normal to inspection Neurologic: awake; no focal motor deficits Psychiatric: A+Ox3, euthymic affect Results & Data Results & Data Vital Signs (Past 12 Hours) Vital Signs Temp Pulse Pulse Resp BP Pulse Ox O2 Del Method 02/22/25 16:12 36.6 C 89 20 120/44 L 98 Room Air 02/22/25 11:48 36.7 C 88 20 135/70 97 Room Air 02/22/25 07:49 36.7 C 88 20 95/43 L 98 Room Air 02/22/25 07:41 86 (4) Diabetes Diabetes mellitus type: type 2 Diabetes mellitus group home insulin use: with group home use Diabetes mellitus complication status: with neurologic complications Diabetes mellitus complication detail: with polyneuropathy Qualified Code(s): E11.42 - Type 2 diabetes mellitus with diabetic polyneuropathy; Z79.4 - director long term care (current) use of insulin (5) Gout Gout site: foot Gout etiology: idiopathic Laterality: left Presence of tophus: without tophus
[2025-02-22] MEDS: FUROSEMIDE 80 MG TAB PO SCH (18:47)
[2025-02-22] MEDS: PROCHLORPERAZINE 5 MG in SYRINGE 4 ML IV ONE (23:57)
[2025-02-22] MEDS: LOPERAMIDE HCL 2 MG CAP PO STA (23:57)
[2025-02-23 07:20] VITALS: RESP 12
[2025-02-23 07:22] LABS: Hematocrit (blood only) 24.8 % (37.0-47.0); Hemoglobin 8.4 g/dl (12.0-16.0); Mean Corpuscular Hemoglobin 33.6 pg (25.0-34.0); Mean Corpuscular Volume 99.2 fL (80.0-100.0); Platelet Count 258 K/uL (130-400); RDW Standard Deviation 51.3 fL (36.4-46.3); Red Blood Count 2.50 M/uL (4.20-5.40); White Blood Count 10.95 K/ul (4.8-10.8)
[2025-02-23 07:31] LABS: Anion Gap 12.0 (3-11); Calcium 8.3 mg/dl (8.6-10.3); Carbon Dioxide 25.0 mmol/L (21-32); Chloride 94.0 mmol/L (98-107); Potassium 3.9 mmol/L (3.5-5.1); Sodium 131.0 mmol/L (136-145)
[2025-02-23 07:40] LABS: Blood Urea Nitrogen 32.0 mg/dl (6-23); Creatinine Clr Calc Pharmacy 7.5 ml/min; Glucose 239.0 mg/dl (70-99(Fasting))
--- NOTE | 2025-02-23 10:00 | Nephrology Progress Note ---
Date of Service February 23, 2025 Assessment & Plan (1) ESRD (end stage renal disease): (2) Hypertension: (3) Anemia: (4) Cellulitis of left lower extremity from knee to ankle: Plan 73-year-old female with end-stage kidney disease on PD (EDW 78kg). Admitted with left lower extremity pain and cellulitis, initially started on cefepime and daptomycin but now switched to daptomycin and Zosyn after having it. Of confusion which is most likely medication related. Clinically she improved and seems to be at her baseline without any confusion. Yesterday she was noted to be volume depleted with hypotension and switched to Delflex 1.5% with bradycardia on dialysis. Ultrafiltration slightly dropped to 750 mL but volume status and blood pressure reasonable. Has h/o chronic lower extremity venous insufficiency s/p venous ablation 11/23/24. Hemoglobin low. Had UF 630 ml overnight. Overall doing well, clinically stable. --change Delflex to 1.5% alternate with 2.5 % tonight in not getting discharged today but if she is being discharged, she will have hemodialysis at [facility]. --continue Lasix 80 mg bid --Epogen 98774 units x 1 dose given on 02/20/25 --waiting on rehab at [facility]. --continue calcitriol Admission and Anticipated Discharge Date Admission Date: February 16, 2025 Roman Dyson was seen and evaluated this morning. She reports some improvement in pain in her leg but she is still not sure whether she would be able to stand up and participate in physical therapy. Has been having dialysis overnight, on Delflex 1.5% and 2.5% alternate, had ultrafiltration of around 637 mL, blood pressure variable, volume status acceptable. Electrolyte acceptable. Hemoglobin stable. Waiting on rehab at [facility]. Review of Systems Review of Systems: Detailed review of system was done and pertinent positives and negatives are mentioned above. Physical Exam Constitutional: WD/WN, vitals as above no acute distress Respiratory: no respiratory distress Auscultation: lungs clear to auscultation bilaterally Cardiovascular: Rate/Rhythm: regular rate and regular rhythm Extremities: + edema and + AV fistula (with bruit, aneurysm) Skin: + turgor decreased and + erythema; no ra shes Neurologic: no focal motor deficits Psychiatric: Orientation: alert and oriented x 3 Results & Data Vital Signs (Past 12 Hours) Vital Signs Temp Pulse Pulse Resp BP Pulse Ox O2 Del Method 02/23/25 07:21 80 02/23/25 07:19 36.3 C L 84 12 152/70 H 97 Room Air 02/23/25 03:49 36.6 C 88 20 96/45 L 95 Room Air 02/23/25 03:40 Room Air 02/23/25 03:36 92 H 02/23/25 00:10 36.5 C 77 20 107/62 93 Room Air PG Care Time/CCT Total # of Minutes Spent Total Time Spent with Patient: Total time spent is greater than 50% in coordination of care (as documented) at patient's floor/unit and/or counseling patient: Coding Level of Care Code 64283 SUB INP/OBS CARE 235MIN Diagnoses ESRD (end stage renal disease) N18.6 Essential hypertension I10 Hypertension type: essential hypertension Anemia D64.9 Cellulitis of left lower extremity from knee to ankle L03.116 (2) Hypertension Hypertension type: essential hypertension Qualified Code(s): I10 - Essential (primary) hypertension
--- NOTE | 2025-02-23 11:04 | Hospitalist Progress Note ---
Date of Service February 23, 2025 Assessment & Plan (1) Cellulitis of left lower extremity from knee to ankle: (2) Dialysis patient: (3) Ambulatory dysfunction: Plan 1) Cellulitis of left lower extremity from knee to ankle: (2) MRSA infection: (3) ESRD on peritoneal dialysis: (4) Type 2 diabetes mellitus with obesity: Plan Karis Guthrie 74-year-old female with a PMH ESRD on peritoneal dialysis, AV fistula malfunction, MRSA infection, diabetes mellitus, anemia, ambulatory dysfunction, chronic venous insufficiency, history of pressure ulcers in buttock and coccygeal region, history of venous ulcers of bilateral lower extremities, gout, she's following with wound care center for her lower extremity wound and pressure ulcer she's has multiple near fall episode at home. She been left lower extremity swelling, erythema and worsening pain of the left lower extremity including ankle. She had undergone a venous Doppler of left lower extremity, which did show superficial venous thrombus, but no deep venous thrombosis She has also been following with orthopedic surgery for a left Grewal's cyst. went to ER on 02/16, after having the pain in her left leg progressing to the point that she can no longer walk. She has not fallen, but has almost fallen a number of occasions. In the emergency department this evening, she was given fentanyl 50 mcg IV with only minimal improvement in pain, and was started on cefepime 2 g IV. Chest x-ray was ordered, and it was negative. she was on cefepime 2g IV for left leg celllulitis and daptomcyin she was switched to zosyn on 02/18 (thursday), and pain improving. Cellulitis of left lower extremity/presumptive gout flare left ankle- superficial thrombus, hx of MRSA infection. her arterial ultrasound is limited. her MRI found sub-Q edema in the upper medial aspect of her leg. also found cystis fluid collection in the upper medial aspect of the leg communicated with ID, unasyn 1.5 q12 hours and daptomycin 500mg q48 hours she's was seen by orthopedic and suspect potential for muscle tear deposition can placed to [facility] c/w IV daptomycin and Unasyn till next Feb 28, 2025 she will be on linezolid 600mg PO BID and augmentin 500mg q12 hours from Mar 01--Mar 02 c/w IV lasix to address the lymphedema at [facility], she will be diaysis via right side fistula eliquis for superfical thrombosis left ankle pain (related to cellulitis, and gout flare up) foot MRI on 02/19 found high signal in the medial cunefirom bone. seen by podiatry and they saw no indication of acute debridement. hypotension episode-resolved ESRD on peritoneal dialysis/failure of AV fistula/hypertension- spoke with Dr. Bragg; nephrology plan for PD in the evening Continue usual medications of cholecalciferol, Cinacalcet, Triphrocaps her metoprolol being held given hypotension furosemide, potassium chloride, Plavix, Diabetes mellitus- Change insulin degludec from 30 units subcu at bedtime glargine 20 units subcu at bedtime Placed on Accu-Cheks with NovoLog SSI Depression/anxiety/insomnia- Continue zolpidem at bedtime, buspirone Hyperlipidemia- Hold rosuvastatin while on daptomycin Hypomagnesemia- Magnesium 1.6 on admission Allowed to be corrected through ED Anemia of chronic kidney disease- Hemoglobin 9.2 is in her usual range Left lower extremity superficial venous thrombosis- As noted on venous Doppler of 02/10/2025, with no DVT noted Not a candidate for anti-inflammatories unless we use steroids Admission and Anticipated Discharge Date Admission Date: February 16, 2025 Subjective her ankle pain improving, but still significant, I will plan on c/w IV daptomycin and unasyn at [facility] till next Thursday and then switch to oral she will be on IV lasix to address the lymphedema at [facility], she will not has peritoneal, she will received her HD via her right side fistula medically stable for discharging to [facility] today communicated with nephrology; communicated with ID Physical Exam Physical Exam: VITALS: Reviewed. WEIGHT/BMI reviewed. GEN: Healthy appearing, well-developed, NAD. HEENT -Head: NC/AT; CV: RRR, no m/r/g. LUNGS: CTAB, no w/r/c. ABD: Soft, NT/ND, NBS, no masses or organomegaly. : N/A MSK: + for right side fistula. EXT: + for left ankle pain; erythema and edema improving NEURO: AAox3 Results & Data Results & Data Vital Signs (Past 12 Hours) Vital Signs Temp Pulse Pulse Resp BP Pulse Ox O2 Del Method 02/23/25 07:21 80 02/23/25 07:19 36.3 C L 84 12 152/70 H 97 Room Air 02/23/25 03:49 36.6 C 88 20 96/45 L 95 Room Air 02/23/25 03:40 Room Air 02/23/25 03:36 92 H 02/23/25 00:10 36.5 C 77 20 107/62 93 Room Air Laboratory Results Laboratory Results - last 72 hr 02/20/25 02/20/25 02/20/25 05:53 11:14 12:37 WBC RBC Hgb Hct MCV MCH MCHC RDW Std Deviation RDW Coeff of Poornima Plt Count MPV Sodium 128 L Potassium 5.3 H Chloride 94 L Carbon Dioxide 24 Anion Gap 10 BUN 39 H Creatinine 7.08 H* Est Cr Clr Drug Dosing 6.9 eGFR 5.58 BUN/Creatinine Ratio 5.5 L Glucose 225 H POC Glucose 120 H Uric Acid Calcium 8.3 L Magnesium Nasal Screen MRSA (PCR) Negative Stl C. diff Tox B Gene Stl C. diff [id number] Hep Bs Antigen 02/20/25 02/20/25 02/21/25 16:54 20:28 06:02 WBC 11.05 H RBC 2.72 L Hgb 9.5 L Hct 27.2 L MCV 100.0 MCH 34.9 H MCHC 34.9 RDW Std Deviation 50.9 H RDW Coeff of Poornima 14.1 Plt Count 246 MPV 10.5 Sodium 129 L Potassium 4.8 Chloride 93 L Carbon Dioxide 22 Anion Gap 14 H BUN 35 H Creatinine 6.81 H* Est Cr Clr Drug Dosing 7.3 eGFR 5.84 BUN/Creatinine Ratio 5.1 L Glucose 194 H POC Glucose 203 H 195 H Uric Acid 5.0 Calcium 8.5 L Magnesium 1.5 L Nasal Screen MRSA (PCR) Stl C. diff Tox B Gene Stl C. diff [id number] Hep Bs Antigen 02/21/25 02/21/25 02/21/25 08:09 11:43 20:57 WBC RBC Hgb Hct MCV MCH MCHC RDW Std Deviation RDW Coeff of Poornima Plt Count MPV Sodium Potassium Chloride Carbon Dioxide Anion Gap BUN Creatinine Est Cr Clr Drug Dosing eGFR BUN/Creatinine Ratio Glucose POC Glucose 173 H 143 H 310 H* Uric Acid Calcium Magnesium Nasal Screen MRSA (PCR) Stl C. diff Tox B Gene Stl C. diff [id number] Hep Bs Antigen 02/21/25 02/21/25 02/21/25 20:59 21:01 Unknown WBC RBC Hgb Hct MCV MCH MCHC RDW Std Deviation RDW Coeff of Poornima Plt Count MPV Sodium Potassium Chloride Carbon Dioxide Anion Gap BUN Creatinine Est Cr Clr Drug Dosing eGFR BUN/Creatinine Ratio Glucose POC Glucose 279 H 274 H Uric Acid Calcium Magnesium Nasal Screen MRSA (PCR) Stl C. diff Tox B Gene Negative Cdiff Gene Stl C. diff [id number] NEGATIVE Hep Bs Antigen 02/22/25 02/22/25 02/22/25 05:46 08:03 12:20 WBC RBC Hgb Hct MCV MCH MCHC RDW Std Deviation RDW Coeff of Poornima Plt Count MPV Sodium Potassium Chloride Carbon Dioxide Anion Gap BUN Creatinine Est Cr Clr Drug Dosing eGFR BUN/Creatinine Ratio Glucose POC Glucose 153 H 104 H Uric Acid Calcium Magnesium 1.5 L Nasal Screen MRSA (PCR) Stl C. diff Tox B Gene Stl C. diff [id number] Hep Bs Antigen 02/22/25 02/22/25 02/22/25 14:27 16:49 20:11 WBC RBC Hgb Hct MCV MCH MCHC RDW Std Deviation RDW Coeff of Poornima Plt Count MPV Sodium Potassium Chloride Carbon Dioxide Anion Gap BUN Creatinine Est Cr Clr Drug Dosing eGFR BUN/Creatinine Ratio Glucose POC Glucose 102 H 172 H Uric Acid Calcium Magnesium Nasal Screen MRSA (PCR) Stl C. diff Tox B Gene Stl C. diff [id number] Hep Bs Antigen Negative 02/23/25 02/23/25 06:03 08:14 WBC 10.95 H RBC 2.50 L Hgb 8.4 L Hct 24.8 L MCV 99.2 MCH 33.6 MCHC 33.9 RDW Std Deviation 51.3 H RDW Coeff of Poornima 14.3 Plt Count 258 MPV 10.6 Sodium 131 L Potassium 3.9 Chloride 94 L Carbon Dioxide 25 Anion Gap 12 H BUN 32 H Creatinine 6.58 H* Est Cr Clr Drug Dosing 7.5 eGFR 6.09 BUN/Creatinine Ratio 4.9 L Glucose 239 H POC Glucose 204 H Uric Acid Calcium 8.3 L Magnesium Nasal Screen MRSA (PCR) Stl C. diff Tox B Gene Stl C. diff [id number] Hep Bs Antigen PG Care Time/CCT Total # of Minutes Spent Total Time Spent with Patient: Total time spent is greater than 50% in coordination of care (as documented) at patient's floor/unit and/or counseling patient: Coding Level of Care Code 07336 SUB INP/OBS CARE 2/35MIN Diagnoses Cellulitis of left lower extremity from knee to ankle L03.116 Dialysis patient Z99.2 Ambulatory dysfunction R26.2 Time Spent (min) 35
[2025-02-23 11:31] VITALS: BP 119/54; TEMP 97.9; O2SAT 95
[2025-02-23] MEDS: FUROSEMIDE 40 MG/4 ML VIAL IV ONE (12:38)
--- NOTE | 2025-02-23 14:12 | Discharge Summary ---
Discharge Summary Date of Service February 23, 2025 Principal Dx & Hospital Course #1 = Principal Diagnosis (1) Cellulitis of left lower extremity from knee to ankle: Margaux Guthrie is a 74 yo woman with PMH of ESRD on PD, diabetes (insulin dependent), MRSA infection lymphedema, hyperlipidemia. she's follow with wound care center for leg wound and pressure ulcer on day of admission, she was having LeFt leg pain, left ankle pain, hypotension, inability to wear weight and found to has septic shock, hypotension and left leg cellulitis, she was started on cefepime, and daptomycin, we held her statin while on daptomycin. she was hypotension for 72 hours. once her BP stabilized, we were able to add IV lasix to address her lymphedema. in addition she was having ongoing LEFT leg pain and left ankle pain, s/p MRI of the foot and MRI of the ankle, seen by ortho and podiatry and defer surgical intervention. she's has hx of gout, started on prednisone and ankle pain improved. she was seen by infectious disease and recommended amp/sulbactam 1.5g IV q12 hours (renally dose), and daptomycin 500mg IV q48 hours (renally dose). she was recommended to has antibiotics until Mar 02, 2025. her blood culture remained negative she been receiving IV lasix for her lymphedema and responded well she [facility], she has right arm fistula and that's been functioning nephrology cleared for discharge (2) Dialysis patient: (3) Ambulatory dysfunction: Plan 1) Cellulitis of left lower extremity from knee to ankle: (2) MRSA infection: (3) ESRD on peritoneal dialysis: (4) Type 2 diabetes mellitus with obesity: Plan Karis Guthrie 74-year-old female with a PMH ESRD on peritoneal dialysis, AV fistula malfunction, MRSA infection, diabetes mellitus, anemia, ambulatory dysfunction, chronic venous insufficiency, history of pressure ulcers in buttock and coccygeal region, history of venous ulcers of bilateral lower extremities, gout, she's following with wound care center for her lower extremity wound and pressure ulcer she's has multiple near fall episode at home. She been left lower extremity swelling, erythema and worsening pain of the left lower extremity including ankle. She had undergone a venous Doppler of left lower extremity, which did show superficial venous thrombus, but no deep venous thrombosis She has also been following with orthopedic surgery for a left Grewal's cyst. went to ER on 02/16, after having the pain in her left leg progressing to the point that she can no longer walk. She has not fallen, but has almost fallen a number of occasions. In the emergency department this evening, she was given fentanyl 50 mcg IV with only minimal improvement in pain, and was started on cefepime 2 g IV. Chest x-ray was ordered, and it was negative. she was on cefepime 2g IV for left leg celllulitis and daptomcyin she was switched to zosyn on 02/18 (thursday), and pain improving. Cellulitis of left lower extremity/presumptive gout flare left ankle- superficial thrombus, hx of MRSA infection. her arterial ultrasound is limited. her MRI found sub-Q edema in the upper medial aspect of her leg. also found cystis fluid collection in the upper medial aspect of the leg communicated with ID, unasyn 1.5 q12 hours and daptomycin 500mg q48 hours she's was seen by orthopedic and suspect potential for muscle tear deposition can placed to [facility] c/w IV daptomycin and Unasyn till next Feb 28, 2025 she will be on linezolid 600mg PO BID and augmentin 500mg q12 hours from Mar 01--Mar 02 c/w IV lasix to address the lymphedema at [facility], she will be diaysis via right side fistula eliquis for superfical thrombosis left ankle pain (related to cellulitis, and gout flare up) foot MRI on 02/19 found high signal in the medial cunefirom bone. seen by podiatry and they saw no indication of acute debridement. hypotension episode-resolved ESRD on peritoneal dialysis/failure of AV fistula/hypertension- spoke with Dr. Bragg; nephrology plan for PD in the evening Continue usual medications of cholecalciferol, Cinacalcet, Triphrocaps her metoprolol being held given hypotension furosemide, potassium chloride, Plavix, Diabetes mellitus- Change insulin degludec from 30 units subcu at bedtime glargine 20 units subcu at bedtime Placed on Accu-Cheks with NovoLog SSI Depression/anxiety/insomnia- Continue zolpidem at bedtime, buspirone Hyperlipidemia- Hold rosuvastatin while on daptomycin Hypomagnesemia- Magnesium 1.6 on admission Allowed to be corrected through ED Anemia of chronic kidney disease- Hemoglobin 9.2 is in her usual range Left lower extremity superficial venous thrombosis- As noted on venous Doppler of 02/10/2025, with no DVT noted Not a candidate for anti-inflammatories unless we use steroids Admission HPI Per Admitting Provider The patient is a 74-year-old female with a past medical history including ESRD on peritoneal dialysis, dialysis AV fistula malfunction, diabetes mellitus, anemia, ambulatory dysfunction, history of MRSA infection, chronic venous insufficiency, history of pressure ulcers in buttock and coccygeal region, history of venous ulcers of bilateral lower extremities, gout, vitamin D deficiency, and hyperlipidemia. She had been having issues with left lower extremity swelling, erythema and worsening pain of the left lower extremity including ankle. She had undergone a venous Doppler of left lower extremity, ordered by her doctor after a visit to their office on 02/10/2025, which was negative for DVT, but did show superficial venous thrombus. She has also been following with orthopedic surgery for a left Grewal's cyst. She presented to the emergency department today, after having the pain in her left leg progressing to the point that she can no longer walk. She has not fallen, but has almost fallen a number of occasions. In the emergency department this evening, she was given fentanyl 50 mcg IV with only minimal improvement in pain, and was started on cefepime 2 g IV. Chest x-ray was ordered, and it was negative. The patient was then referred for [facility] Discharge Exam VITALS: Reviewed. WEIGHT/BMI reviewed. GEN: Healthy appearing, well-developed, NAD. PSYCH: Good Judgment. AOx3. Normal memory, mood, and affect. HEENT -Head: NC/AT; -Eyes: PERRL, EOMI. No discharge or redness; NECK: Supple, with no masses. CV: RRR, no m/r/g. LUNGS: CTAB, no w/r/c. ABD: Soft, NT/ND, NBS, no masses or organomegaly. : N/A SKIN: Warm, well perfused. No skin rashes or abnormal lesions. MSK: left leg edema; erythema; no discharge noted; left ankle tender to palpation NEURO: AAox3 Discharge Plan Discharge Items Patient Disposition: Transfer Inpatient Rehab Fac Reason For Visit: LLE CELLULITIS Discharge Diagnosis: left leg cellulitis left ankle cellulitis with hypotension gout flare up ESRD on peritoneal Condition on Discharge: Fair Activity: Per Instructions section Lifting: Gradually increase as tolerated Non-emergency contact: Primary Care Provider, Surgeon and Social Service Coordinator Call non-emergency contact if: your symptoms worsen and you have a fever Follow-up/Referrals: Unruly Trujillo, DO [Primary Care Provider] - Diet: Carb Consistent or DM2 Addtl Attending Provider Instructions: you will f/u with medical insurance coding specialist Dr. Mani Galloway if you continue to has has leg edema on lasix twice a day, you will work with your kidney specialist (gang investigator) about adjusting your water pill dosage. Addtl Machine Deburrer Provider Instructions: DIABETES RECOMMENDATIONS: 1.) Tresiba - Because Tresiba is a long-acting insulin, adjusting the dose from night to night makes very little difference in blood sugar levels. - Try to take the same dose of Tresiba every night. - After looking at blood sugar levels over several days, you can slowly adjust the dose up or down to help improve values. 2.) Novolog - Because Novolog takes 15-20 minutes to start to work, it works best if you take it before meals (not after) to help get a head of the spike you get in your blood sugar level after meals. - You can adjust the dose up or down according to your before meal blood sugar level and meal size/carbs. - Even if your blood sugar level is within a safe range, you still need to take some Novolog to cover the carbs you are eating to help minimize after meal blood sugar spikes. 3.) New Insulin - Because your peritoneal dialysis contains a glucose solution, it often will increase blood sugar levels. - Some people with diabetes take an additional insulin at night to help minimize the high blood sugar levels overnight. - Encouraged further discussion with your outpatient providers if you think this might be helpful. Orthopedic Instructions: - you may weight bear as tolerated on your leg - use walker to assist with ambulation as needed - ice to knee as needed for pain/swelling - You may do full movement of your knee as tolerated - Follow up with Dr. Santana as scheduled. - Call [phone] with any increased pain, swelling, fevers, chills, redness or warmth or need to reschedule appointment. Pending Studies at Discharge: Yes Studies:: repeat CBC, BMP, and uric acid Stand-Alone Forms: My [facility] Skilled Items Patient informed of condition?: Yes DNR: Yes Discharge Level of Care: Acute rehab Communicable Disease: Yes Discharge Prognosis: Stable Lines: Peripheral IV Urinary Catheter: No Medications and DC Order Prescriptions: New prednisone 20 mg Tablet 30 mg PO DAILY 5 Days Qty: 8 0RF daptomycin in 0.9 % sod chlor 500 mg/50 mL piggyback 500 mg IV DAILY 6 Days Rx Instructions: administer over 30 mins ampicillin-sulbactam 1.5 gram recon soln 1.5 g IV Q12H 6 Days Continued (DME) pen needle, diabetic [BD Nicki 2nd Gen Pen Needle] 32 gauge x 5/32" needle See Rx Instructions .Route Qty: 100 11RF Rx Instructions: use to inject 3 times daily insulin degludec [Tresiba FlexTouch U-100] 100 unit/mL (3 mL) insulin pen 30 unit subcut HS Patient Comments: 25-30 units depending on blood glucose Rx Instructions: 25- 30 units pending BSG (DME) FreeStyle Kvng 3 Plus Sensor Device See Rx Instructions .Route Qty: 2 5RF Rx Instructions: change sensor Q15 D zolpidem 10 mg tablet 10 mg PO HS Qty: 30 2RF metoprolol succinate 25 mg tablet extended release 24 hr 25 mg PO QPM Qty: 90 3RF Rx Instructions: Monitors BP - holds occasionally if "too low"_ Systolic <100 cholecalciferol (vitamin D3) 62.5 mcg (2,500 unit) capsule 62.5 mcg PO QPM B12 Active 1,000 mcg tablet,chewable 1,000 mcg PO QPM (DME) lancets [Accu-Chek Fastclix Lancet Drum] misc See Dose Instructions .ROUTE .MEDSUPPLY Qty: 50 Rx Instructions: As directed (DME) Accu-Chek SmartView Test Strip Strip See Rx Instructions .ROUTE .MEDSUPPLY Dose Instruction: As directed Rx Instructions: USE 1 TEST STRIP DAILY PRN (DME) Walking Cane Misc See Rx Instructions .Route Qty: 1 0RF Rx Instructions: As directed cinacalcet [Sensipar] 30 mg tablet 30 mg PO DAILY pregabalin [Lyrica] 25 mg capsule 25 mg PO .COMPLEX Qty: 90 0RF Rx Instructions: 25 mg orally take 2-3 times daily; calcitriol 0.25 mcg capsule 0.5 mcg PO QPM gentamicin 0.1 % cream 1 applic topical UD Rx Instructions: original: APPLY A SMALL AMOUNT TO THE PD CATHETER EXIT SITE DAILY last filled 07/28 30 day supply Triphrocaps 1 mg capsule 1 cap PO QPM clopidogrel 75 mg tablet 75 mg PO QPM furosemide 80 mg tablet 80 mg PO BID potassium chloride 10 mEq tablet extended release 40 meq PO QPM insulin aspart U-100 [Novolog FlexPen U-100 Insulin] 100 unit/mL (3 mL) insulin pen 8 unit subcut AC Rx Instructions: patient only eats twice a day buspirone 7.5 mg tablet 7.5 mg PO QPM Qty: 0 0RF triamcinolone acetonide 0.1 % ointment 1 applic TOPICAL BID PRN (Reason: skin issues) Held rosuvastatin [Crestor] 40 mg tablet 40 mg PO PM Hold Instructions: Resume on 03/06/25. Discharge Orders: Discharge Order (Routine); Ordered 02/23/25 Ordered By: Markel Crawley/Other Patient Handouts: Peritoneal Dialysis (PD), ED Cellulitis Admission Data Admit Date/Time: 02/16/25 22:01 Attending Provider: Markel Looney Admit Provider: Dudley Lea Primary Care Provider: Unruly Trujillo Other Providers: Dudley Lea; James Bragg; Christiano Galloway; [facility] Hospital Stay Data Consultations 02/16/25 19:34 ED Decision to Admit Stat 02/16/25 23:20 Consult Nephrology Routine 02/19/25 18:03 Consult Infectious Diseases Routine 02/21/25 09:28 Consult Podiatry Routine Diagnostic Imagining Performed 02/18/25 08:56 CT femur LT wo con Stat CT tib/fib LT wo con Stat 02/19/25 14:05 MRI Foot [MR foot LT w/o con] Urgent 02/19/25 14:06 MRI Leg [MR lower leg LT wo con] Urgent 02/21/25 09:44 US arterial duplex LE BI Routine 02/21/25 12:28 MR ankle LT wo con Routine Pending Results Patient Have Any Pending Studies at Discharge: Yes Discharge Instructions Given to Patient (Per Discharging Provider) you will f/u with medical insurance coding specialist Dr. Mani Galloway if you continue to has has leg edema on lasix twice a day, you will work with your kidney specialist (gang investigator) about adjusting your water pill dosage. Total Time Total Time Spent Total Time Spent (In Minutes): 35 Coding Level of Care Code 15057 INP/OBS DISCH >30 MIN Diagnoses Cellulitis of left lower extremity from knee to ankle L03.116 Dialysis patient Z99.2 Ambulatory dysfunction R26.2 Time Spent (min) 35
[2025-02-23 14:45] VITALS: PULSE 98
[2025-02-23 16:23] LABS: Hep C Ab Rflx HepCQuant RNA Negative (Negative)
== END 2025-02-23 15:31 | DRG 602 ==
LOC: ED 16:21 → EDINP 22:01 → SUATTDRO 22:01 → 2S 23:21 → 2W 02-20 16:11

== ENCOUNTER 2025-03-30 14:56 | Inpatient (IN) ==
--- NOTE | 2025-03-30 15:09 | Emergency Department Note ---
ED Visit Note I was consulted by the Advanced Practice Provider Davey Bess PA-C. I performed a substantive portion of the visit including all aspects of medical decision making. Patient admitted for diabetic foot infection. Pro-Jake 1.4. Patient with a temp of 37.6 and given Tylenol. Patient does receive peritoneal dialysis nightly. .
--- NOTE | 2025-03-30 15:33 | XRay Report ---
XR foot LT min 3V routine HISTORY: 74 years-old Female L foot infection acute soft tissue infection of the left foot COMPARISON: Left foot MRI 02/19/2025 TECHNIQUE: 3 views of the left foot FINDINGS: Arterial soft tissue calcifications with diffuse soft tissue swelling, spouse to the dorsal forefoot. Mild to moderate multifocal osteoarthritis. No acute fracture, dislocation or osseous erosion identi fied. Large plantar calcaneal disease identified. IMPRESSION: Soft tissue swelling without acute osseous abnormality identified. ACT 112: Negative or not required by law. The above report was generated using voice recognition software. It may contain grammatical, syntax o r spelling errors. Electronically signed by: Matthew Blair M.D. 03/30/2025 3:32 PM
[2025-03-30] MEDS: PIPERACILLIN/TAZOBACTAM 4.5 GM/100 ML BAG IV ONE (16:13)
[2025-03-30] MEDS: DAPTOMYCIN IV ONE (16:14)
[2025-03-30] MEDS: ACETAMINOPHEN 325 MG TAB PO STA (16:14)
[2025-03-30 16:24] LABS: Hematocrit (blood only) 26.3 % (37.0-47.0); Hemoglobin 8.8 g/dL (12.0-16.0); Immature Granulocytes # (auto) 0.05 K/uL (0.01-0.20); Immature Granulocytes % (auto) 0.5 %; Mean Corpuscular Hemoglobin 33.2 pg (25.0-34.0); Mean Corpuscular Volume 99.2 fL (80.0-100.0); Platelet Count 347 K/uL (130-400); RDW Standard Deviation 56.6 fL (36.4-46.3); Red Blood Count 2.65 M/uL (4.20-5.40); White Blood Count 10.64 K/ul (4.8-10.8)
[2025-03-30 16:54] LABS: INR 1.1 (0.9-1.1); Partial Thromboplastin Time 25 Seconds (21-31); Prothrombin Time 11.5 Seconds (9.0-12.0)
--- NOTE | 2025-03-30 17:25 | History & Physical Report ---
Date of Service March 30, 2025 Assessment & Plan (1) Cellulitis of foot, left: (2) Ulcer of left heel: (3) Elevated lactic acid level: (4) Pressure ulcer of coccygeal region, stage 3: (5) ESRD on peritoneal dialysis: (6) Anemia: (7) Hypertension: (8) Hyponatremia: (9) Hypokalemia: (10) CAD (coronary artery disease): (11) History of DVT (deep vein thrombosis): (12) Uncontrolled type 2 diabetes mellitus with hyperglycemia: (13) Venous ulcer of right leg: (14) PAD (peripheral artery disease): Plan 74yo female with ESRD on PD nightly, T2DM, HTN, hyperlipidemia, CAD s/p LAD stent 2023, anemia of chronic disease, PAD, prior DVT, and DOTTIE (untreated) who presents from home with concerns for worsening left heel & ankle infection. Contreras was hospitalized at [facility] from 02/16 to 02/23 for distal LLE cellulitis. She did have a known left heel pressure ulcer during that hospitalization and was treated with optifoam. She was discharged to [facility] and remained at [facility] until 03/24. Per records she was discharged to [facility] on IV Unasyn with IV daptomycin, and finished her antibiotic course for the LLE cellulitis with augmentin/zyvox while rehabbing. Saw podiatry in the outpatient setting on 03/29 and her left heel ulcer was found to be much worse with evidence of infection. Admission was advised by podiatry for wound care, antibiotics, etc. #severe left heel ulcer with cellulitis - present on admission - -left heel ulcer was present during January admission but is significantly worse since that time - see today's photos in this note -she has low-grade fever, purulent drainage, and cellulitis of the jim-wound and ankle region on left -s/p zosyn/daptomycin in the ER - continue both -hold statin while on daptomycin -will obtain CT left foot - r/o abscess of soft tissue or signs of osteomyelitis (she declined going straight to MRI) -will obtain LLE arterial duplex study as 06/24/24 outpatient arterial study done in [facility] Cardiology/Vascular clinic showed noncompressible ABIs b/l and severely decreased TBI on the left -will redress the left heel tonight, then have Dr Christiano Galloway consult tomorrow for his opinion & recommendations -allow weight-bearing but toe touch only, but defer ultimate weight-bearing recs to Dr Galloway -may need a walking boot or similar to allow optimal healing in the future #uncontrolled T2DM - -a1c 7.3% in 01/2025 but may not be accurate due to chronic anemia -BSG was >500 upon presentation today -cont basal-bolus insulins; convert Tresiba to lantus; novolog for carb coverage & correction -BSGs ac/hs -DM diet #ESRD on PD - -made on-call [facility] Nephrology aware of her admission and formal consult placed -too late in day to proceed with PD this evening but will be able to arrange such tomorrow -fortunately her volume status is satisfactory this evening, she has no hyperkalemia, etc. #coccygeal pressure ulcer, stage 3 - present on admission - -wound care consult requested -in meantime - cleanse with saline, Aquacel Ag, and Optifoam #venous ulcer of right chand - present on admission - -wound care consult -Aquacel Ag, Optifoam in meantime as per outpatient wound care notes #deep tissue injury sacral/buttock area - -frequent turning, offloading, etc. #PAD - -see discussion above under "left heel ulcer" -arterial duplex study of LLE requested #CAD with prior LAD stent - -follows with Dr Garcia, [facility] Cardiology -no ischemic symptoms at this time -cont plavix -hold meto succ - BPs low-normal this evening at time of admission -hold statin while on daptomycin #HTN - -resume meto succ when able -hold furosemide BID - she is mildly volume contracted; in fact gave 250cc of NS while in ER due to volume contraction #hyponatremia - -pseudohyponatremia in setting of markedly elevated glucose -BMP am #hypokalemia - -typically takes 40meq of K each night at home -gave additional 20meq while she was being admitted in the ER -recheck BMP am -check mag level am #anemia of chronic disease - -transferrin sat was 30% in 01/2025 and ferritin was quite high -B12/folate levels 2023 were wnl -trend #h/o DVT / DVT proph - -heparin 5000 BID starting in am tomorrow will need PT/OT evals ultimately History of Present Illness Chief Complaint: left foot wound Primary Care Provider: Unruly Trujillo, DO 74yo female with ESRD on PD nightly, T2DM, HTN, hyperlipidemia, CAD s/p LAD stent 2023, anemia of chronic disease, PAD, prior DVT, and DOTTIE (untreated) who presents from home with concerns for worsening left heel & ankle infection. Dr Contreras was hospitalized at [facility] from 02/16 to 02/23 for distal LLE cellulitis. She did have a known left heel pressure ulcer during that hospitalization and was treated with optifoam. She was discharged to [facility] and remained at [facility] until 03/24. Per records she was discharged to [facility] on IV Unasyn with IV daptomycin, and finished her antibiotic course for the LLE cellulitis with augmentin/zyvox. She reports that after getting home from [facility] she had mild discomfort in her left foot/heel. She also has discomfort over a coccygeal pressure ulcer. She went to see Dr Christiano Galloway from podiatry in his clinic on 03/29 and after examining the left foot he strongly recommended he come to the ER for evaluation due to concerns of worsening heel ulcer with infection. She decided to stay home the night of 03/29 and performed her PD in typical fashion. Today, however, she finally came to the [facility] ER for evaluation. Upon presentation today she was borderline febrile at 37.6 degrees. Her main complaints for me were that of pain in the left foot/heel, pain in her sacral/coccygeal region, and feeling thirsty. She denied having any fevers or chills at home. During my admission assessment her BSG was >500. A review of her record shows that she follows closely with the [facility] clinic for a chronic right chand ulcer as well as the stage 3 coccygeal ulcer. Allergies Allergy/AdvReac Type Severity Reaction Status Date / Time insect venom Allergy Intermediate Swelling Verified 03/30/25 16:51 adhesive tape Allergy Mild Rash Verified 03/30/25 16:51 pollen extracts Allergy Mild "Seasonal Verified 03/30/25 16:51 allergies" dulaglutide [From Trulicity] AdvReac Intermediate Constipation, Verified 03/30/25 16:51 vomiting Home Medications Medication Instructions Recorded Confirmed Type lancets (Accu-Chek Fastclix Lancet #50 ea 12/16/18 02/10/25 History Drum) mecobalamin (vitamin B12) 1,000 1,000 mcg PO QPM 09/13/20 03/30/25 History mcg chewable tablet (B12 Active) blood sugar diagnostic (Accu-Chek 10/15/21 02/10/25 History SmartView Test Strips) cholecalciferol (vitamin D3) 62.5 62.5 mcg PO QPM 06/06/22 03/30/25 History mcg (2,500 unit) capsule Walking Cane #1 ea 06/30/23 02/10/25 Rx triamcinolone acetonide 0.1 % 1 applic topical BID PRN skin 07/28/23 03/30/25 History topical ointment issues pen needle, diabetic 32 gauge x #100 ea 08/24/23 02/10/25 Rx 32" (BD Nicki 2nd Gen Pen Needle) insulin degludec 100 unit/mL (3 30 unit subcut HS 03/15/24 03/30/25 History mL) subcutaneous pen (Tresiba FlexTouch U-100 insulin) blood-glucose sensor (FreeStyle #2 ea 08/16/24 02/10/25 Rx Kvng 3 Plus Sensor device) vitamin B complex and vitamin C 1 cap PO QPM 08/24/24 03/30/25 History no.20-folic acid 1 mg capsule (Triphrocaps) clopidogrel 75 mg tablet 75 mg PO QPM 12/07/24 03/30/25 History furosemide 80 mg tablet 80 mg PO BID 12/07/24 03/30/25 History insulin aspart U-100 100 unit/mL 8 unit subcut AC 12/07/24 03/30/25 History (3 mL) subcutaneous pen (Novolog FlexPen U-100 Insulin aspart) potassium chloride 10 mEq 40 meq PO QPM 12/07/24 03/30/25 History tablet,extended release buspirone 7.5 mg tablet 7.5 mg PO QPM #0 tabs 12/09/24 03/30/25 Rx cinacalcet 30 mg tablet (Sensipar) 30 mg PO QPM 01/10/25 03/30/25 History rosuvastatin 40 mg tablet (Crestor) 40 mg PO PM 01/27/25 03/30/25 History zolpidem 10 mg tablet 10 mg PO HS #30 tabs 01/31/25 03/30/25 Rx calcitriol 0.25 mcg capsule 0.5 mcg PO QPM 02/14/25 03/30/25 History metoprolol succinate 25 mg 25 mg PO QPM #90 tabs 03/15/25 03/30/25 Rx tablet,extended release 24 hr blood-glucose sensor (Dexcom G7 #3 ea 03/29/25 Rx Sensor device) pregabalin 25 mg capsule (Lyrica) 25 mg PO .2-3 X DAILY pain 03/30/25 03/30/25 History Past Med/Surg History Problem List (Updated 03/31/25 @ 04:54 by Juan Carlos Jacob MD) PAD (peripheral artery disease) Uncontrolled type 2 diabetes mellitus with hyperglycemia Ulcer of left heel Cellulitis of foot, left Cellulitis of left lower extremity from knee to ankle Dialysis patient (Acute) Left leg pain (Acute) Ambulatory dysfunction (Acute) Cellulitis (Acute) Dialysis AV fistula malfunction Diarrhea (Acute) Wound infection (Acute) Persistent disorder of initiating or maintaining sleep Edema of lower extremity (Chronic) Hyperglycemia (Acute) Dialysis patient (Acute) Ambulatory dysfunction Venous reflux Cellulitis of right foot Volume overload Blister of foot Chronic venous insufficiency Pressure ulcer of coccygeal region, stage 3 (Acute) Abnormal ankle brachial index (MAINE) (Acute) Edema of lower extremity Diabetic ulcer of right great toe (Acute) Osteoporosis Decubitus ulcer of sacral region, stage 2 Venous ulcer of right leg (Acute) Anemia due to chronic kidney disease (Acute) Hypercholesterolemia Non-proliferative diabetic retinopathy, both eyes Gout (Acute) Vitamin D deficiency Complex renal cyst Medical History Anemia Elevated lactic acid level Elevated troponin Diabetes Anemia ESRD on peritoneal dialysis MRSA infection Type 2 diabetes mellitus with obesity Hypertension Elevated troponin Hyponatremia Hypokalemia Generalized weakness Anxiety Associated dyspnea per pulmonology Fracture of hip, right, closed (04/20/24) right femoral intertrochanteric fracture with mild gapping from a fall Acute cholecystitis Heart failure with preserved ejection fraction CAD (coronary artery disease) Obesity Non-ST elevation GA (NSTEMI) Pulmonary edema Folate deficiency anemia Metabolic acidosis AV fistula right arm--per pt not currently using yet Periodontal pocket Carious teeth Sleep apnea Per 2009 polysomnography (per 02/2021 pulmonology note)- pt declined treatment or repeat study-NO DEVICE Diastolic CHF Chronic kidney disease, stage 4 (severe) Secondary hyperparathyroidism of renal origin History of DVT (deep vein thrombosis) Multiple "small" DVTs (25+ years ago, 6 years ago) Fibroids History of hypothyroidism HX-NO MEDS Sensorineural hearing loss (SNHL) of both ears Family history of colon cancer in mother Surgical History Status post-operative repair of hip fracture Hx laparoscopic cholecystectomy (01/28/24) Robotic Laparoscopic Cholecystectomy(Not Applicable) - Oseas Madrigal, DO, FACS History of coronary artery stent placement S/P arteriovenous (AV) fistula creation RIGHT arm 03/27/21 @ [facility] Dr. Subramanian History of dental surgery History of surgery on arm Right Arm basilic vein transposition 2nd stage @ [facility] Dr. Subramanian 06/10/21 History of colonoscopy Family History Mother Diabetes Renal cell cancer Heart disease Colorectal cancer Hypertension Brother Diabetes Renal cell cancer Heart disease Lung cancer Hypertension Gallbladder disease Father Prostate cancer Heart disease Hypertension Grandmother (Maternal) Colorectal cancer Aunt Diabetes Other Alzheimer disease No family history of adverse response to anesthesia Denies family history of Ovarian cancer Myocardial infarction Breast cancer Social History (Updated 03/31/25 @ 04:39 by Juan Carlos Jacob MD) Smoking Status: Never smoker Second Hand Exposure: No; Do You Dip or Chew Tobacco: No; Hx Alcohol Use: No Hx Substance Use: No Preferred Language: Setswana Communication Ability: Effective Visual Impairment: Limited Hearing Ability: Hard of Hearing Senior Scientist Required: No Beliefs That Will Affect Care: None marital status: Single Current Living Situation: Alone Current Living Situation Comment: has home health nursing current occupational status: retired 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 How many Children do You have: 0 Feels Safe at Home: Yes Childhood Exposure to Second-Hand Smoke: No (very little ) Diet: diabetic caffeine: Yes (drinks iced tea every day, sometimes soda ) Dental Care, Regularly: Yes Physical Activity Frequency: 1-2 Times per Week Physical Activity Frequency Comment: weight training, walking Seatbelt Use: always Sunscreen Use: Yes (most times ) Assistive Devices: Glasses and Wheelchair Review of Systems 2 Review of Systems: gen - no fevers or chills, eating poorly last few days at home, no significant weight change eyes - no ocular complaints or visual change HENT - no recent URI symptoms, no dysphagia CV - no chest pain, no orthopnea; some LE edema pulm - no dyspnea at rest, no ARREDONDO GI - no abd pain, no diarrhea, no blood in stool vascular - has RUE AV fistula skin - ongoing ulcers in sacral/coccygeal region; ongoing ulcer L heel; ongoing ulcer right chand endo - known diabetic - on peritoneal dialysis at home, cycles at night-time neuro - no headache, no focal motor weakness - just generalized weakness Physical Exam 2 Physical Exam: gen - lying in bed, nontoxic appearing, awake, alert eyes - PERRL HENT - MM slightly dry, no lesions, no thrush neck - no JVD, no obvious lymph nodes vascular - bruit present over RUE AV fistula; popliteal pulse on left 1+; cap refill left foot about 2 seconds; foot is warm, not cold; post tib pulse and dorsalis pedis pulses 1+ at best; right foot pulses about 1-2+ heart - RRR, s1 s2, 1/6 RANDY LSB lungs - CTA b/l, no rales abd - softly distended, BS+, PD catheter in place - insertion site clean, no masses, no HSM, nontender ext - 1+ edema shins/feet skin - right chand - very small superficial ulcer without drainage; sacrum/buttock region - there is an irregularly shaped area of skin on the left which appears to be ecchymoses from a tissue injury; there is a known coccygeal ulcer with drainage but I cannot adequately see the entire ulcer to stage it; left heel - see photos below - large amount of black skin overlying the heel with macerated and devitalized skin surrounding this black region; the ankle is mildly erythematous; there is purulent drainage from the heel. L great toe with black eschar at tip of toe (see photo). About the ankle and hindfoot is very dry/xerotic skin. neuro - strength 5/5 x 4 exts; DTRs arms 2+ b/l psych - a/o x 3 Left Great Toe: Left foot/ankle: Left foot Heel: Results & Data Results & Data Vital Signs (Past 12 Hours) Vital Signs Temp Pulse Pulse Resp BP Pulse Ox O2 Del Method 03/30/25 16:22 108 H 03/30/25 14:43 37.6 C H 106 H 18 114/60 98 Room Air Laboratory Results Laboratory Results - last 24 hr 03/30/25 03/30/25 03/30/25 16:02 18:16 20:09 WBC 10.64 RBC 2.65 L Hgb 8.8 L Hct 26.3 L MCV 99.2 MCH 33.2 MCHC 33.5 RDW Std Deviation 56.6 H RDW Coeff of Poornima 15.9 H Plt Count 347 MPV 10.0 Immature Gran % (Auto) 0.5 Neut % (Auto) 79.5 Lymph % (Auto) 11.1 Dickey % (Auto) 7.6 Eos % (Auto) 0.8 Baso % (Auto) 0.5 Neut # (Auto) 8.47 H Lymph # (Auto) 1.18 L Dickey # (Auto) 0.81 H Eos # (Auto) 0.08 Baso # (Auto) 0.05 Immature Gran # (Auto) 0.05 PT 11.5 INR 1.1 APTT 25 PTT Ratio 0.9 Sodium 132 L Potassium 3.4 L Chloride 93 L Carbon Dioxide 26 Anion Gap 13 H BUN 30 H Creatinine 6.61 H* Est Cr Clr Drug Dosing 7.5 eGFR 6.05 BUN/Creatinine Ratio 4.5 L Glucose 549 H* POC Glucose 506 H* Lactate 4.1 H* 3.5 H* Calcium 8.5 L Total Bilirubin 0.4 AST 28 ALT 22 Alkaline Phosphatase 84 Total Protein 5.3 L Albumin 2.1 L Globulin 3.2 Albumin/Globulin Ratio 0.7 L Procalcitonin 1.40 H Nasal Screen MRSA (PCR) 03/30/25 03/30/25 20:35 22:25 WBC RBC Hgb Hct MCV MCH MCHC RDW Std Deviation RDW Coeff of Poornima Plt Count MPV Immature Gran % (Auto) Neut % (Auto) Lymph % (Auto) Dickey % (Auto) Eos % (Auto) Baso % (Auto) Neut # (Auto) Lymph # (Auto) Dickey # (Auto) Eos # (Auto) Baso # (Auto) Immature Gran # (Auto) PT INR APTT PTT Ratio Sodium Potassium Chloride Carbon Dioxide Anion Gap BUN Creatinine Est Cr Clr Drug Dosing eGFR BUN/Creatinine Ratio Glucose POC Glucose 255 H Lactate Calcium Total Bilirubin AST ALT Alkaline Phosphatase Total Protein Albumin Globulin Albumin/Globulin Ratio Procalcitonin Nasal Screen MRSA (PCR) Negative Diagnostic Findings Foot X-Ray 03/30/25 15:08 XR foot LT min 3V routine HISTORY: 74 years-old Female L foot infection acute soft tissue infection of the left foot COMPARISON: Left foot MRI 02/19/2025 TECHNIQUE: 3 views of the left foot FINDINGS: Arterial soft tissue calcifications with diffuse soft tissue swelling, spouse to the dorsal forefoot. Mild to moderate multifocal osteoarthritis. No acute fracture, dislocation or osseous erosion identified. Large plantar calcaneal disease identified. IMPRESSION: Soft tissue swelling without acute osseous abnormality identified. ACT 112: Negative or not required by law. The above report was generated using voice recognition software. It may contain grammatical, syntax or spelling errors. Electronically signed by: Matthew Blair M.D. 03/30/2025 3:32 PM Code Status & VTE Plan Code Status full code PG Care Time/CCT Total # of Minutes Spent Total Time Spent with Patient: Total time spent is greater than 50% in coordination of care (as documented) at patient's floor/unit and/or counseling patient: Coding Level of Care Code 37992 INT INP/OBS CARE 375MIN Diagnoses Cellulitis of foot, left L03.116 Ulcer of left heel L97.429 Elevated lactic acid level R79.89 Pressure ulcer of coccygeal region, stage 3 L89.153 ESRD on peritoneal dialysis N18.6; Z99.2 Anemia D64.9 Anemia type: unspecified type Essential hypertension I10 Hypertension type: essential hypertension Hyponatremia E87.1 Hypokalemia E87.6 CAD (coronary artery disease) I25.10 History of DVT (deep vein thrombosis) Z86.718 Uncontrolled type 2 diabetes mellitus with hyperglycemia E11.65 Venous ulcer of right leg I83.019; L97.919 PAD (peripheral artery disease) I73.9 (6) Anemia Anemia type: unspecified type Qualified Code(s): D64.9 - Anemia, unspecified (7) Hypertension Hypertension type: essential hypertension Qualified Code(s): I10 - Essential (primary) hypertension
[2025-03-30 17:26] LABS: Alanine Aminotransferase 22.0 U/L (7-52); Albumin Globulin Ratio 0.7 (0.9-2); Albumin Level 2.1 gm/dl (3.4-5.0); Alkaline Phosphatase 84.0 U/L (34-104); Anion Gap 13.0 (3-11); Bilirubin,Total 0.4 mg/dl (0.2-1.0); Blood Urea Nitrogen 30.0 mg/dl (6-23); Calcium 8.5 mg/dl (8.6-10.3); Carbon Dioxide 26.0 mmol/L (21-32); Chloride 93.0 mmol/L (98-107); Creatinine Clr Calc Pharmacy 7.5 ml/min; Globulin 3.2 gm/dl (2.5-4.0); Glucose 549.0 mg/dl (70-99(Fasting)); Potassium 3.4 mmol/L (3.5-5.1); Sodium 132.0 mmol/L (136-145); Total Protein 5.3 gm/dl (6.0-8.3)
[2025-03-30] MEDS: INSULIN ASPART PER UNIT CHARGE SC STA (18:35)
[2025-03-30] MEDS: SODIUM CHLORIDE 0.9% 250 ML IV ONE (18:38)
[2025-03-30] MEDS: POTASSIUM CHLORIDE CRTAB 20 MEQ TABCR PO STA (18:38)
--- NOTE | 2025-03-30 19:56 | CT Scan Report ---
CT left foot without contrast History: Pain/weakness Comparison: None Technique: CT performed of the extremity without IV contrast. Dose reduction techniques were achieved by using automatic exposure control and/or adjustment of mA and/or kV according to patient size and/or use of iterative reconstruction technique. Findings: No fracture or dislocation. Joint spaces are normally aligned. There is a defect indicating a wound at the soft tissue of the heel posterior the calcaneus. No underlying bony destruction or cortical defects. Generalized soft tissue edema of the foot. No aggressive osseous lesion. Impression: Soft tissue wound at the heel without convincing evidence for underlying osteomyelitis. However MRI is more sensitive. Electronically signed by Jeyson Olmtsead 03-30-2025 7:56 PM
[2025-03-30] MEDS ORDERED: ACETAMINOPHEN 325 MG TAB PO PRN (20:40)
[2025-03-30] MEDS ORDERED: ONDANSETRON INJ 2 MG/ML 2 ML VIAL IV PRN (20:40)
[2025-03-30] MEDS: HYDROCODONE/ACETAMINOPHEN 7.5/325MG TAB PO PRN (21:55)
[2025-03-30] MEDS: POTASSIUM CHLORIDE 10 MEQ TABCR PO SCH (21:56)
[2025-03-30] MEDS: NEPHROCAPS PO SCH (21:58)
[2025-03-30] MEDS: CALCITRIOL 0.25 MCG CAPSULE PO SCH (21:59)
[2025-03-30] MEDS: PREGABALIN 25 MG CAP PO SCH (21:59)
[2025-03-30] MEDS: ZOLPIDEM TARTRATE 5 MG TAB PO SCH (21:59)
[2025-03-30] MEDS: INSULIN ASPART PER UNIT CHARGE SC SCH (22:01)
[2025-03-30] MEDS: CLOPIDOGREL BISULFATE 75 MG TAB PO SCH (22:01)
[2025-03-30] MEDS: CINACALCET HCL 30 MG TAB PO SCH (22:02)
--- NOTE | 2025-03-30 23:56 | Emergency Department Note ---
History of Present Illness General Chief complaint: Infection, Wound Stated complaint: INFECTION Time Seen by Provider: 03/30/25 15:00 History of Present Illness Maximum Pain Intensity: 9 This is a 74-year-old female who presents to the emergency department via EMS with complaints of "left foot infection/wound". Patient states that she has a wound to the left foot that has progressively worsened. She denies any fevers or chills. No nausea or vomiting. She does note some discomfort however in the left foot/ankle area where the wound is located. No trauma or injury. No current antibiotic use. Home Medications Medication Instructions Recorded Confirmed Type lancets (Accu-Chek Fastclix Lancet #50 ea 12/16/18 02/10/25 History Drum) mecobalamin (vitamin B12) 1,000 1,000 mcg PO QPM 09/13/20 03/30/25 History mcg chewable tablet (B12 Active) blood sugar diagnostic (Accu-Chek 10/15/21 02/10/25 History SmartView Test Strips) cholecalciferol (vitamin D3) 62.5 62.5 mcg PO QPM 06/06/22 03/30/25 History mcg (2,500 unit) capsule Walking Cane #1 ea 06/30/23 02/10/25 Rx triamcinolone acetonide 0.1 % 1 applic topical BID PRN skin 07/28/23 03/30/25 History topical ointment issues pen needle, diabetic 32 gauge x #100 ea 08/24/23 02/10/25 Rx 5/32" (BD Nicki 2nd Gen Pen Needle) insulin degludec 100 unit/mL (3 30 unit subcut HS 03/15/24 03/30/25 History mL) subcutaneous pen (Tresiba FlexTouch U-100 insulin) blood-glucose sensor (FreeStyle #2 ea 08/16/24 02/10/25 Rx Kvng 3 Plus Sensor device) vitamin B complex and vitamin C 1 cap PO QPM 08/24/24 03/30/25 History no.20-folic acid 1 mg capsule (Triphrocaps) clopidogrel 75 mg tablet 75 mg PO QPM 12/07/24 03/30/25 History furosemide 80 mg tablet 80 mg PO BID 12/07/24 03/30/25 History insulin aspart U-100 100 unit/mL 8 unit subcut AC 12/07/24 03/30/25 History (3 mL) subcutaneous pen (Novolog FlexPen U-100 Insulin aspart) potassium chloride 10 mEq 40 meq PO QPM 12/07/24 03/30/25 History tablet,extended release buspirone 7.5 mg tablet 7.5 mg PO QPM #0 tabs 12/09/24 03/30/25 Rx cinacalcet 30 mg tablet (Sensipar) 30 mg PO QPM 01/10/25 03/30/25 History rosuvastatin 40 mg tablet (Crestor) 40 mg PO PM 01/27/25 03/30/25 History zolpidem 10 mg tablet 10 mg PO HS #30 tabs 01/31/25 03/30/25 Rx calcitriol 0.25 mcg capsule 0.5 mcg PO QPM 02/14/25 03/30/25 History metoprolol succinate 25 mg 25 mg PO QPM #90 tabs 03/15/25 03/30/25 Rx tablet,extended release 24 hr blood-glucose sensor (Dexcom G7 #3 ea 03/29/25 Rx Sensor device) pregabalin 25 mg capsule (Lyrica) 25 mg PO .2-3 X DAILY pain 03/30/25 03/30/25 History Allergies Allergy/AdvReac Type Severity Reaction Status Date / Time insect venom Allergy Intermediate Swelling Verified 03/30/25 16:51 adhesive tape Allergy Mild Rash Verified 03/30/25 16:51 pollen extracts Allergy Mild "Seasonal Verified 03/30/25 16:51 allergies" [facility]ag[facility] AdvReac Intermediate Constipation, Verified 03/30/25 16:51 vomiting Past Med/Surg History Problem List (Updated 03/31/25 @ 00:46 by Davey Bess PA-C) Cellulitis of left lower extremity from knee to ankle Dialysis patient (Acute) Left leg pain (Acute) Ambulatory dysfunction (Acute) Cellulitis (Acute) Dialysis AV fistula malfunction Diarrhea (Acute) Wound infection (Acute) Persistent disorder of initiating or maintaining sleep Edema of lower extremity (Chronic) Hyperglycemia (Acute) Dialysis patient (Acute) Ambulatory dysfunction Venous reflux Cellulitis of right foot Volume overload Blister of foot Chronic venous insufficiency Pressure ulcer of coccygeal region, stage 3 (Acute) Abnormal ankle brachial index (MAINE) (Acute) Edema of lower extremity Diabetic ulcer of right great toe (Acute) Osteoporosis Decubitus ulcer of sacral region, stage 2 Venous ulcer of right leg (Acute) Anemia due to chronic kidney disease (Acute) Hypercholesterolemia Non-proliferative diabetic retinopathy, both eyes Gout (Acute) Vitamin D deficiency Complex renal cyst Medical History Anemia Elevated lactic acid level Elevated troponin Diabetes Anemia ESRD on peritoneal dialysis MRSA infection Type 2 diabetes mellitus with obesity Hypertension Elevated troponin Hyponatremia Hypokalemia Generalized weakness Anxiety Associated dyspnea per pulmonology Fracture of hip, right, closed (04/20/24) right femoral intertrochanteric fracture with mild gapping from a fall Acute cholecystitis Heart failure with preserved ejection fraction CAD (coronary artery disease) Obesity Non-ST elevation VA (NSTEMI) Pulmonary edema Folate deficiency anemia Metabolic acidosis AV fistula right arm--per pt not currently using yet Periodontal pocket Carious teeth Sleep apnea Per 2009 polysomnography (per 02/2021 pulmonology note)- pt declined treatment or repeat study-NO DEVICE Diastolic CHF Chronic kidney disease, stage 4 (severe) Secondary hyperparathyroidism of renal origin History of DVT (deep vein thrombosis) Multiple "small" DVTs (25+ years ago, 6 years ago) Fibroids History of hypothyroidism HX-NO MEDS Sensorineural hearing loss (SNHL) of both ears Family history of colon cancer in mother Surgical History Status post-operative repair of hip fracture Hx laparoscopic cholecystectomy (01/28/24) Robotic Laparoscopic Cholecystectomy(Not Applicable) - Oseas Madrigal, , FACS History of coronary artery stent placement S/P arteriovenous (AV) fistula creation RIGHT arm 03/27/21 @ [facility] Dr. Subramanian History of dental surgery History of surgery on arm Right Arm basilic vein transposition 2nd stage @ [facility] Dr. Subramanian 06/10/21 History of colonoscopy Family History Mother Diabetes Renal cell cancer Heart disease Colorectal cancer Hypertension Brother Diabetes Renal cell cancer Heart disease Lung cancer Hypertension Gallbladder disease Father Prostate cancer Heart disease Hypertension Grandmother (Maternal) Colorectal cancer Aunt Diabetes Other Alzheimer disease No family history of adverse response to anesthesia Denies family history of Ovarian cancer Myocardial infarction Breast cancer Social History Smoking Status: Never smoker Second Hand Exposure: No; Do You Dip or Chew Tobacco: No; Hx Alcohol Use: No Hx Substance Use: No Preferred Language: Cameroonian Communication Ability: Effective Visual Impairment: Limited Hearing Ability: Hard of Hearing 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 Beliefs That Will Affect Care: None marital status: Single Current Living Situation: Alone Current Living Situation Comment: has home health nursing current occupational status: retired current occupation: Retired How many Children do You have: 0 Feels Safe at Home: Yes Childhood Exposure to Second-Hand Smoke: No (very little ) Diet: diabetic caffeine: Yes (drinks iced tea every day, sometimes soda ) Dental Care, Regularly: Yes Physical Activity Frequency: 1-2 Times per Week Physical Activity Frequency Comment: weight training, walking Seatbelt Use: always Sunscreen Use: Yes (most times ) Assistive Devices: Glasses and Wheelchair Review of Systems A total of 10 systems reviewed and were otherwise negative Physical Exam Vital Signs Vital Signs - 24 hr 03/30/25 14:43 03/30/25 14:43 03/30/25 16:22 Temperature 37.6 C H Temperature Source Oral Pulse Rate 108 H Pulse Rate [Right Brachial] 106 H Pulse Rhythm [Right Brachial] Regular Pulse Strength [Right Brachial] Normal Respiratory Rate 18 Respiratory Effort / Characteristics Non-Labored Respiratory Depth Normal Respiratory Pattern Regular Blood Pressure Blood Pressure [Right Arm] 114/60 Blood Pressure Mean Blood Pressure Mean [Right Arm] 78 Blood Pressure Position [Right Arm] Lying Pulse Oximetry 98 Oxygen Delivery Method Room Air Sepsis New/Unexplained Change in Mental Status N/A Sepsis Action Taken by Nursing No Action Required 03/30/25 16:30 03/30/25 18:00 Temperature Temperature Source Pulse Rate 108 H 101 H Pulse Rate [Right Brachial] Pulse Rhythm [Right Brachial] Pulse Strength [Right Brachial] Respiratory Rate 24 21 Respiratory Effort / Characteristics Respiratory Depth Respiratory Pattern Blood Pressure 207/137 H 173/67 H Blood Pressure [Right Arm] Blood Pressure Mean 175 102 Blood Pressure Mean [Right Arm] Blood Pressure Position [Right Arm] Pulse Oximetry 96 98 Oxygen Delivery Method Room Air Room Air Sepsis New/Unexplained Change in Mental Status Sepsis Action Taken by Nursing VITAL SIGNS - Vital signs and nursing notes were reviewed. Stable, afebrile. GENERAL -74-year-old appearing her stated age who is in no acute distress. Communicates well with provider and answers questions appropriately. SKIN - Open wound to the left calcaneus area on the plantar aspect tracking dorsal and laterally there is erythema. Erythema then noted circumferentially at the left ankle joint. HEAD - NC/AT. EYES - Sclera anicteric. NECK - No nuchal rigidity. LUNGS - CTA CARDIAC - RRR ABDOMEN - Abdominal contour normal without pulsations or visible masses. BS normoactive all four quadrants. No tenderness, palpable masses, hepatosplenomegaly, or ascites noted. EXTREMITIES - No clubbing or peripheral cyanosis. Skin as above. Left foot wound noted. No lymphangitic streaking. No crepitus. No fluctuance. Left lower extremity well-perfused within normal dorsalis pedis pulse. +5/5 strength noted in UE/LE bilaterally. NEUROLOGIC -sensory intact throughout the left lower extremity without deficit. PSYCH -alert, oriented and pleasant on examination Course Administered Medications Hydrocodone Bitart/Acetaminophen (Hydrocodone/Acetaminophen 7.5/325mg Tab) 1 tab PO Q6H PRN PRN Reason: Mild-Mod Pain (Scale 1-7) Stop: 04/13/25 20:39 Last Admin: 03/30/25 21:55 Dose: 1 tab Documented By: SAM Buspirone HCl (Buspirone 7.5 Mg Tab) 7.5 mg PO QPM [facility] Stop: 04/29/25 20:59 Last Admin: 03/30/25 22:00 Dose: 7.5 mg Documented By: SAM Calcitriol (Calcitriol 0.25 Mcg Capsule) 0.5 mcg PO QPM [facility] Stop: 04/29/25 20:59 Last Admin: 03/30/25 21:59 Dose: 0.5 mcg Documented By: SAM Cinacalcet (Cinacalcet Hcl 30 Mg Tab) 30 mg PO QPM [facility] Stop: 04/29/25 20:59 Last Admin: 03/30/25 22:02 Dose: 30 mg Documented By: SAM Clopidogrel Bisulfate (Clopidogrel Bisulfate 75 Mg Tab) 75 mg PO QPM [facility] Stop: 04/29/25 20:59 Last Admin: 03/30/25 22:01 Dose: 75 mg Documented By: SAM Piperacillin Sod/Tazobactam Sod (Zosyn) 4.5 gm in 100 mls @ 25 mls/hr IV Q12H [facility]; Protocol Stop: 04/07/25 00:00 Last Admin: 03/31/25 00:03 Dose: 25 mls/hr Documented By: SAM Insulin Aspart (Insulin Aspart Per Unit Charge) 0 units SC ACHS [facility] Stop: 04/29/25 20:59 Last Admin: 03/30/25 22:01 Dose: 4 units Documented By: SAM Co-signed By: MARILU Potassium Chloride (Potassium Chloride 10 Meq Tabcr) 40 meq PO QPM [facility] Stop: 04/29/25 20:59 Last Admin: 03/30/25 21:56 Dose: 40 meq Documented By: SAM Pregabalin (Pregabalin 25 Mg Cap) 25 mg PO BID [facility] Stop: 04/29/25 20:59 Last Admin: 03/30/25 21:59 Dose: 25 mg Documented By: SAM Vitamin B Complex/Folic Acid (Nephrocaps) 1 cap PO QPM [facility] Stop: 04/29/25 20:59 Last Admin: 03/30/25 21:58 Dose: 1 cap Documented By: SAM Zolpidem Tartrate (Zolpidem Tartrate 5 Mg Tab) 10 mg PO HS [facility] Stop: 04/29/25 20:59 Last Admin: 03/30/25 21:59 Dose: 10 mg Documented By: SAM Discontinued Medications Acetaminophen (Acetaminophen 325 Mg Tab) 650 mg PO NOW STA Stop: 03/30/25 16:07 Last Admin: 03/30/25 16:14 Dose: 650 mg Documented By: KENISHA Fentanyl Citrate (Fentanyl Citrate Pf 100 Mcg/2 Ml Vial) 25 mcg IV NOW STA Stop: 03/30/25 17:23 Last Admin: 03/30/25 17:36 Dose: 25 mcg Documented By: SUDHIR Fentanyl Citrate (Fentanyl Citrate Pf 100 Mcg/2 Ml Vial) 25 mcg IV NOW STA Stop: 03/30/25 18:13 Last Admin: 03/30/25 18:38 Dose: 25 mcg Documented By: KENISHA Piperacillin Sod/Tazobactam Sod (Zosyn) 4.5 gm in 100 mls @ 200 mls/hr IV NOW ONE; Protocol Stop: 03/30/25 15:42 Last Infusion: 03/30/25 17:00 Dose: Infused Documented By: Admin: 03/30/25 16:13 Dose: 200 mls/hr Documented By: KENISHA Daptomycin 460 mg/ Syringe 9.2 mls @ 4.6 mls/min IV NOW ONE; Protocol Stop: 03/30/25 15:28 Last Admin: 03/30/25 16:14 Dose: 4.6 mls/min Documented By: KENISHA Sodium Chloride (Nss) 250 mls @ 999 mls/hr IV .Q16M ONE Stop: 03/30/25 18:50 Last Infusion: 03/30/25 18:57 Dose: Infused Documented By: Admin: 03/30/25 18:38 Dose: 999 mls/hr Documented By: KENISHA Insulin Aspart (Insulin Aspart Per Unit Charge) 11 units SC NOW STA Stop: 03/30/25 18:23 Last Admin: 03/30/25 18:35 Dose: 11 units Documented By: KENISHA Co-signed By: NAKUL Potassium Chloride (Potassium Chloride Crtab 20 Meq Tabcr) 20 meq PO NOW STA Stop: 03/30/25 18:17 Last Admin: 03/30/25 18:38 Dose: 20 meq Documented By: KENISHA Medical Decision Making Laboratory Data 03/30/25 16:02 03/30/25 16:02 Lab Results 03/30/25 03/30/25 Range/Units 16:02 18:16 WBC 10.64 (4.8-10.8) K/ul RBC 2.65 L (4.20-5.40) M/uL Hgb 8.8 L (12.0-16.0) g/dL Hct 26.3 L (37.0-47.0) % MCV 99.2 (80.0-100.0) fL MCH 33.2 (25.0-34.0) pg MCHC 33.5 (32.0-36.0) g/dL RDW Std Deviation 56.6 H (36.4-46.3) fL RDW Coeff of Poornima 15.9 H (11.5-14.5) % Plt Count 347 (130-400) K/uL MPV 10.0 (9.4-12.4) fL Immature Gran % (Auto) 0.5 % Neut % (Auto) 79.5 % Lymph % (Auto) 11.1 % [place] % (Auto) 7.6 % Eos % (Auto) 0.8 % Baso % (Auto) 0.5 % Neut # (Auto) 8.47 H (1.40-6.50) K/uL Lymph # (Auto) 1.18 L (1.20-3.40) K/uL [place] # (Auto) 0.81 H (0.11-0.59) K/uL Eos # (Auto) 0.08 (0.00-0.50) K/uL Baso # (Auto) 0.05 (0.00-0.20) K/uL Immature Gran # (Auto) 0.05 (0.01-0.20) K/uL PT 11.5 (9.0-12.0) Seconds INR 1.1 (0.9-1.1) APTT 25 (21-31) Seconds PTT Ratio 0.9 Sodium 132 L (136-145) mmol/L Potassium 3.4 L (3.5-5.1) mmol/L Chloride 93 L (98-107) mmol/L Carbon Dioxide 26 (21-32) mmol/L Anion Gap 13 H (3-11) BUN 30 H (6-23) mg/dl Creatinine 6.61 H* (0.6-1.2) mg/dl Est Cr Clr Drug Dosing 7.5 ml/min eGFR 6.05 BUN/Creatinine Ratio 4.5 L (10-20) Glucose 549 H* (70-99(Fasting)) mg/dl POC Glucose 506 H* (70-99) mg/dl Lactate 4.1 H* (0.4-2.0) mmol/L Calcium 8.5 L (8.6-10.3) mg/dl Total Bilirubin 0.4 (0.2-1.0) mg/dl AST 28 (13-39) U/L ALT 22 (7-52) U/L Alkaline Phosphatase 84 (34-104) U/L Total Protein 5.3 L (6.0-8.3) gm/dl Albumin 2.1 L (3.4-5.0) gm/dl Globulin 3.2 (2.5-4.0) gm/dl Albumin/Globulin Ratio 0.7 L (0.9-2) Procalcitonin 1.40 H (0-0.5) ng/ml Imaging Data Radiologist's Impression: Foot X-Ray 03/30/25 15:08 XR foot LT min 3V routine HISTORY: 74 years-old Female L foot infection acute soft tissue infection of the left foot COMPARISON: Left foot MRI 02/19/2025 TECHNIQUE: 3 views of the left foot FINDINGS: Arterial soft tissue calcifications with diffuse soft tissue swelling, spouse to the dorsal forefoot. Mild to moderate multifocal osteoarthritis. No acute fracture, dislocation or osseous erosion identified. Large plantar calcaneal disease identified. IMPRESSION: Soft tissue swelling without acute osseous abnormality identified. ACT 112: Negative or not required by law. The above report was generated using voice recognition software. It may contain grammatical, syntax or spelling errors. Electronically signed by: Matthew Blair M.D. 03/30/2025 3:32 PM MDM Narrative Patient was seen and evaluated as above in room B05. Review was performed of triage nursing notes and vital signs. I did review pertinent previous visits and patient history. After obtaining a thorough history and physical examination the above work up was performed. Patient presents to us today for evaluation of left foot wound. The patient is borderline febrile on arrival and mildly tachycardic. She is not hypotensive. She does participate in peritoneal dialysis every evening. There is no leukocytosis. There is a stable anemia with hemoglobin of 8.8. There are normal coags. There is hyponatremia 132, creatinine 6.61 consistent with the patient's CKD and dialysis. Glucose elevated at 549. Lactate is elevated at 4.1. Procalcitonin 1.4. Broad-spectrum IV antibiotics were ordered to include that of IV Zosyn plus IV daptomycin per review of previous cultures, comorbidities and presentation today. IV fluids were not ordered as the patient already appears a bit volume overloaded clinically and will need to undergo dialysis. Again I will note the patient is not hypotensive and heart rate has improved. The case was discussed with the hospitalist service. Please refer to further documentation regarding her stay. An x-ray was obtained here and there was no radiographic evidence of osteomyelitis. In the evaluation and treatment of this patient the following differential diagnoses were entertained: Cellulitis, abscess, osteomyelitis, sepsis, among others. Impression & Plan Left leg pain, Cellulitis Discharge Plan Visit Data Chief Complaint: Infection, Wound Stated Complaint: INFECTION ED Provider: Earle Beltran ED Midlevel Provider: Davey Bess Discharge Problem: Left leg pain, Cellulitis Patient Disposition: Admitted As Inpatient Condition: Fair Discharge Instructions Interventions: ED Discharge Assessment Last Done: 03/30/25 20:07
[2025-03-31] MEDS: PIPERACILLIN/TAZOBACTAM 4.5 GM/100 ML BAG IV SCH (00:03)
--- NOTE | 2025-03-31 00:06 | Ultrasound Report ---
Exam(s): US ARTERIAL LEFT LOWER EXTREMITY EXAM: US Duplex Left Lower Extremity Arteries CLINICAL HISTORY: non-healing L foot ulcer; PAD?. OTHER: Other Notes: PAD. Wounds and pain in LLE. Pt is diabetic. Elevated velocity detected within distal BRYSON, 191cm/s. Unable to visualize PASTEURIZER HELPER or peroneal artery. Pt has edema and very tender and is unable to tolerate pressure from the probe. Mostly monophasic waveforms seen throughout. unable to perform MAINE's due to pain and open wounds. TECHNIQUE: Real-time duplex ultrasound scan of the left lower extremity arteries integrating B-mode two-dimensional vascular structure, Doppler spectral analysis and color flow Doppler imaging. COMPARISON: No relevant prior studies available. FINDINGS: Left common femoral artery: Peak systolic velocity in the left common femoral artery is 82 cm/s. Multiphasic waveform. left deep femoral artery: Peak systolic velocity in the left deep femoral artery is 51 cm/s. Biphasic waveform. Left superficial femoral artery: Peak systolic velocity in the left superficial femoral artery is 68 cm/s. Monophasic waveform. Left popliteal artery: Peak systolic velocity in the left popliteal artery is 62 cm/s. Monophasic waveform. Left calf/foot arteries: The left posterior tibial artery appears occluded. The left peroneal artery appears occluded. The left anterior tibial artery demonstrates a peak systolic velocity approximately 44 cm/sec with monophasic waveforms. The distal left anterior tibial artery demonstrates markedly elevated velocities of 190 cm/sec. Peak systolic velocity in the left dorsalis pedis artery is 83 cm/s. Monophasic waveform. Soft tissues: No significant abnormality. IMPRESSION: 1. Extensive atherosclerotic calcification throughout the left lower extremity with monophasic waveforms from the distal femoral artery. No occlusions of the level of the popliteal artery. 2. The left anterior tibial artery demonstrates a peak systolic velocity approximately 44 cm/sec with monophasic waveforms. The distal left anterior tibial artery demonstrates markedly elevated velocities of 190 cm/sec, consistent with moderate, greater than 50% luminal stenosis. The left posterior tibial and peroneal arteries are occluded. Electronically signed by: Ainbal Rsoario MD 03/31/25 00:05 AM
[2025-03-31] MEDS: MELATONIN 3 MG TAB PO PRN (01:16)
[2025-03-31] MEDS: HYDROmorphone INJ 0.5 MG/0.5 ML SYR IV PRN ×2 (02:28→11:14)
[2025-03-31 07:31] LABS: Hematocrit (blood only) 28.3 % (37.0-47.0); Hemoglobin 9.8 g/dL (12.0-16.0); Mean Corpuscular Hemoglobin 34.1 pg (25.0-34.0); Mean Corpuscular Volume 98.6 fL (80.0-100.0); Platelet Count 379 K/uL (130-400); RDW Standard Deviation 55.9 fL (36.4-46.3); Red Blood Count 2.87 M/uL (4.20-5.40); White Blood Count 11.26 K/ul (4.8-10.8)
[2025-03-31] MEDS: HEPARIN SOD 5,000 UNIT/0.5 ML VIAL SQ SCH (08:09)
[2025-03-31] MEDS: ACETAMINOPHEN 325 MG TAB PO SCH (08:10)
[2025-03-31] MEDS: METOPROLOL SUCC 25MG EXT REL TAB PO SCH (08:10)
[2025-03-31 08:33] LABS: Anion Gap 11.0 (3-11); Blood Urea Nitrogen 34.0 mg/dl (6-23); Calcium 8.7 mg/dl (8.6-10.3); Carbon Dioxide 27.0 mmol/L (21-32); Chloride 96.0 mmol/L (98-107); Creatinine Clr Calc Pharmacy 8.0 ml/min; Glucose 117.0 mg/dl (70-99(Fasting)); Magnesium 1.5 mg/dl (1.7-2.4); Potassium 4.8 mmol/L (3.5-5.1); Sodium 134.0 mmol/L (136-145)
--- NOTE | 2025-03-31 09:07 | Nephrology Consultation ---
Date of Consultation March 31, 2025 Assessment & Plan (1) ESRD on peritoneal dialysis: * Attributed to DKD and hypertension. Maintained on PD. * Outpatient Rx: NCCPD 5 x 2.5 L, 90 min dwell, 1000 ml last fill. EDW 78 kg * Volume status is acceptable. Electrolytes normal. * Plan to continue with NCCPD with treatment tonight. * Bumex should be continued her home Rx. * Maintain a renal diet and document I/O's * Sensipar can be held while inpatient. Calcitriol continued per home Rx. * Daily BMP (2) Anemia: * Hgb 9.8 * Will provide epogen 10,000 units SQ x1 today (3) Cellulitis: * On zosyn and daptomycin. Doses have been adjusted for ESKD-PD * Monitor CK while on daptomycin History of Present Illness Reason for Consultation: ESKD-PD Attending Physician: Juan Carlos Jacob MD History of Present Illness Ms. Guthrie is a 74 year old white female who is seen at the request of the [facility] hospitalist service to provide NCCPD therapy and assist w/ medical management. Information for the HPI is obtained from direct patient interview and review of the EMR. HPI is summarized as follows: Ms. Guthrie has ESKD due to DKD. She is on NCCPD therapy under the care of Dr. Wing (5 exchages/night, 2500 fill volume, 2.5% delflex, fill 10/dwell 90/drain 20 with LBO 1L. No daytime exchange. EDW 78kg). Ms. Guthrie has chronic lower extremity venous insufficiency. She underwent venous ablation 11/23/24. Ms. Guthrie was hospitalized at [facility] 02/16/25-02/23/25 for L heel pressure ulcer w/ associated cellulitis. She was then transferred to [facility] until 03/24/25. During her stay at [facility] her L heel wound was managed with IV unasyn and daptomycin and later transitioned to augmentin/zyvox. 03/29/25 Ms. Guthrie was evaluated by podiatry. Her heel ulcer had progressed and admission was advised for wound care and ongoing antibiotic therapy. Evaluation to date: foot x-ray is negative for osseous abnormality, foot CT confirms soft tissue inflammation without evidence of osteomyelitis. MRI suggested. LE duplex shows extensive LLE atherosclerotic calcification. PMH: ESKD, AODM, ASCVD s/p LAD stent 06/20, HTN PSH: R BC AVF 04/16 (Dr. Subramanian) s/p transposition 06/18, PD catheter placed 08/18 (Dr. James), cholecystectomy 02/17 Allergies Allergy/AdvReac Type Severity Reaction Status Date / Time insect venom Allergy Intermediate Swelling Verified 03/30/25 16:51 adhesive tape Allergy Mild Rash Verified 03/30/25 16:51 pollen extracts Allergy Mild "Seasonal Verified 03/30/25 16:51 allergies" dulaglutide [From [facility]] AdvReac Intermediate Constipation, Verified 5 16:51 vomiting Home Medications Medication Instructions Recorded Confirmed Type lancets (Accu-Chek Fastclix Lancet #50 ea 12/16/18 02/10/25 History Drum) mecobalamin (vitamin B12) 1,000 1,000 mcg PO QPM 09/13/20 03/30/25 History mcg chewable tablet (B12 Active) blood sugar diagnostic (Accu-Chek 10/15/21 02/10/25 History SmartView Test Strips) cholecalciferol (vitamin D3) 62.5 62.5 mcg PO QPM 06/06/22 03/30/25 History mcg (2,500 unit) capsule Walking Cane #1 ea 06/30/23 02/10/25 Rx triamcinolone acetonide 0.1 % 1 applic topical BID PRN skin 07/28/23 03/30/25 History topical ointment issues pen needle, diabetic 32 gauge x #100 ea 08/24/23 02/10/25 Rx 5/32" (BD Nicki 2nd Gen Pen Needle) insulin degludec 100 unit/mL (3 30 unit subcut HS 03/15/24 03/30/25 History mL) subcutaneous pen (Tresiba FlexTouch U-100 insulin) blood-glucose sensor (FreeStyle #2 ea 08/16/24 02/10/25 Rx Kvng 3 Plus Sensor device) vitamin B complex and vitamin C 1 cap PO QPM 08/24/24 03/30/25 History no.20-folic acid 1 mg capsule (Triphrocaps) clopidogrel 75 mg tablet 75 mg PO QPM 12/07/24 03/30/25 History furosemide 80 mg tablet 80 mg PO BID 12/07/24 03/30/25 History insulin aspart U-100 100 unit/mL 8 unit subcut AC 12/07/24 03/30/25 History (3 mL) subcutaneous pen (Novolog FlexPen U-100 Insulin aspart) potassium chloride 10 mEq 40 meq PO QPM 12/07/24 03/30/25 History tablet,extended release buspirone 7.5 mg tablet 7.5 mg PO QPM #0 tabs 12/09/24 03/30/25 Rx cinacalcet 30 mg tablet (Sensipar) 30 mg PO QPM 01/10/25 03/30/25 History rosuvastatin 40 mg tablet (Crestor) 40 mg PO PM 01/27/25 03/30/25 History zolpidem 10 mg tablet 10 mg PO HS #30 tabs 01/31/25 03/30/25 Rx calcitriol 0.25 mcg capsule 0.5 mcg PO QPM 02/14/25 03/30/25 History metoprolol succinate 25 mg 25 mg PO QPM #90 tabs 03/15/25 03/30/25 Rx tablet,extended release 24 hr blood-glucose sensor (Dexcom G7 #3 ea 03/29/25 Rx Sensor device) pregabalin 25 mg capsule (Lyrica) 25 mg PO .2-3 X DAILY pain 03/30/25 03/30/25 History Patient History Medical History Anemia Elevated lactic acid level Elevated troponin Diabetes Anemia ESRD on peritoneal dialysis MRSA infection Type 2 diabetes mellitus with obesity Hypertension Elevated troponin Hyponatremia Hypokalemia Generalized weakness Anxiety Associated dyspnea per pulmonology Fracture of hip, right, closed (04/20/24) right femoral intertrochanteric fracture with mild gapping from a fall Acute cholecystitis Heart failure with preserved ejection fraction CAD (coronary artery disease) Obesity Non-ST elevation AK (NSTEMI) Pulmonary edema Folate deficiency anemia Metabolic acidosis AV fistula right arm--per pt not currently using yet Periodontal pocket Carious teeth Sleep apnea Per 2009 polysomnography (per 02/2021 pulmonology note)- pt declined treatment or repeat study-NO DEVICE Diastolic CHF Chronic kidney disease, stage 4 (severe) Secondary hyperparathyroidism of renal origin History of DVT (deep vein thrombosis) Multiple "small" DVTs (25+ years ago, 6 years ago) Fibroids History of hypothyroidism HX-NO MEDS Sensorineural hearing loss (SNHL) of both ears Family history of colon cancer in mother Surgical History Status post-operative repair of hip fracture Hx laparoscopic cholecystectomy (01/28/24) Robotic Laparoscopic Cholecystectomy(Not Applicable) - Oseas Madrigal, DO, FACS History of coronary artery stent placement S/P arteriovenous (AV) fistula creation RIGHT arm 03/27/21 @ [facility] Dr. Subramanian History of dental surgery History of surgery on arm Right Arm basilic vein transposition 2nd stage @ [facility] Dr. Subramanian 06/10/21 History of colonoscopy Family History Mother Diabetes Renal cell cancer Heart disease Colorectal cancer Hypertension Brother Diabetes Renal cell cancer Heart disease Lung cancer Hypertension Gallbladder disease Father Prostate cancer Heart disease Hypertension Grandmother (Maternal) Colorectal cancer Aunt Diabetes Other Alzheimer disease No family history of adverse response to anesthesia Denies family history of Ovarian cancer Myocardial infarction Breast cancer Social History Smoking Status: Never smoker Second Hand Exposure: No; Do You Dip or Chew Tobacco: No; Hx Alcohol Use: No Hx Substance Use: No Preferred Language: Malagasy Communication Ability: Effective Visual Impairment: Limited Hearing Ability: Hard of Hearing Bowl Attendant Required: No Beliefs That Will Affect Care: None marital status: Single Current Living Situation: Alone Current Living Situation Comment: has home health nursing current occupational status: retired 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 How many Children do You have: 0 Feels Safe at Home: Yes Childhood Exposure to Second-Hand Smoke: No (very little ) Diet: diabetic caffeine: Yes (drinks iced tea every day, sometimes soda ) Dental Care, Regularly: Yes Physical Activity Frequency: 1-2 Times per Week Physical Activity Frequency Comment: weight training, walking Seatbelt Use: always Sunscreen Use: Yes (most times ) Assistive Devices: Glasses and Wheelchair Review of Systems Constitutional: no fever Eyes: no problem reported Ear, Nose, Mouth, Throat: no problem reported Respiratory: no dyspnea Cardiovascular: no chest pain Gastrointestinal: no abdominal pain, no nausea, no vomiting and no diarrhea/loose stools Integumentary: + erythema (LLE) Physical Exam Constitutional: no acute distress Eyes: + anicteric sclerae ENMT: external ear and nose normal, oropharynx normal Neck: normal visual inspection and trachea midline Respiratory: normal respiratory effort Cardiovascular: Rate/Rhythm: regular rate Extremities: + AV fistula Gastrointestinal (Abdomen): Percussion/Palpation: abdomen soft; abdomen nontender Skin: + erythema (R calf) Neurologic: Motor/Sensory: no tremor and no asterixis Psychiatric: Orientation: alert and oriented x 3 Results & Data Vital Signs (Past 12 Hours) Vital Signs Temp Pulse Resp BP Pulse Ox O2 Del Method 03/31/25 08:00 36.9 C 97 H 18 175/95 H 96 Room Air 03/31/25 02:46 36.4 C 87 18 145/77 H 97 Room Air Laboratory Results Laboratory Results WBC 11.26 K/ul (4.8-10.8) H 03/31/25 07:06 RBC 2.87 M/uL (4.20-5.40) L 03/31/25 07:06 Hgb 9.8 g/dL (12.0-16.0) L 03/31/25 07:06 Hct 28.3 % (37.0-47.0) L 03/31/25 07:06 MCV 98.6 fL (80.0-100.0) 03/31/25 07:06 MCH 34.1 pg (25.0-34.0) H 03/31/25 07:06 MCHC 34.6 g/dL (32.0-36.0) 03/31/25 07:06 RDW Std Deviation 55.9 fL (36.4-46.3) H 03/31/25 07:06 RDW Coeff of Poornima 15.7 % (11.5-14.5) H 03/31/25 07:06 Plt Count 379 K/uL (130-400) 03/31/25 07:06 MPV 9.9 fL (9.4-12.4) 03/31/25 07:06 Immature Gran % (Auto) 0.5 % 03/30/25 16:02 Neut % (Auto) 79.5 % 03/30/25 16:02 Lymph % (Auto) 11.1 % 03/30/25 16:02 [place] % (Auto) 7.6 % 03/30/25 16:02 Eos % (Auto) 0.8 % 03/30/25 16:02 Baso % (Auto) 0.5 % 03/30/25 16:02 Neut # (Auto) 8.47 K/uL (1.40-6.50) H 03/30/25 16:02 Lymph # (Auto) 1.18 K/uL (1.20-3.40) L 03/30/25 16:02 [place] # (Auto) 0.81 K/uL (0.11-0.59) H 03/30/25 16:02 Eos # (Auto) 0.08 K/uL (0.00-0.50) 03/30/25 16:02 Baso # (Auto) 0.05 K/uL (0.00-0.20) 03/30/25 16:02 Immature Gran # (Auto) 0.05 K/uL (0.01-0.20) 03/30/25 16:02 PT 11.5 Seconds (9.0-12.0) 03/30/25 16:02 INR 1.1 (0.9-1.1) 03/30/25 16:02 APTT 25 Seconds (21-31) 03/30/25 16:02 PTT Ratio 0.9 03/30/25 16:02 Sodium 134 mmol/L (136-145) L 03/31/25 07:06 Potassium 4.8 mmol/L (3.5-5.1) D 03/31/25 07:06 Chloride 96 mmol/L (98-107) L 03/31/25 07:06 Carbon Dioxide 27 mmol/L (21-32) 03/31/25 07:06 Anion Gap 11 (3-11) 03/31/25 07:06 BUN 34 mg/dl (6-23) H 03/31/25 07:06 Creatinine 6.43 mg/dl (0.6-1.2) H* 03/31/25 07:06 Est Cr Clr Drug Dosing 8.0 ml/min 03/31/25 07:06 eGFR 6.26 03/31/25 07:06 BUN/Creatinine Ratio 5.3 (10-20) L 03/31/25 07:06 Glucose 117 mg/dl (70-99(Fasting)) H 03/31/25 07:06 POC Glucose 106 mg/dl (70-99) H 03/31/25 07:25 Lactate 3.5 mmol/L (0.4-2.0) H* 03/30/25 20:09 Calcium 8.7 mg/dl (8.6-10.3) 03/31/25 07:06 Magnesium 1.5 mg/dl (1.7-2.4) L 03/31/25 07:06 Total Bilirubin 0.4 mg/dl (0.2-1.0) 03/30/25 16:02 AST 28 U/L (13-39) 03/30/25 16:02 ALT 22 U/L (7-52) 03/30/25 16:02 Alkaline Phosphatase 84 U/L (34-104) 03/30/25 16:02 Total Protein 5.3 gm/dl (6.0-8.3) L 03/30/25 16:02 Albumin 2.1 gm/dl (3.4-5.0) L 03/30/25 16:02 Globulin 3.2 gm/dl (2.5-4.0) 03/30/25 16:02 Albumin/Globulin Ratio 0.7 (0.9-2) L 03/30/25 16:02 Procalcitonin 1.40 ng/ml (0-0.5) H 03/30/25 16:02 Nasal Screen MRSA (PCR) Negative (Negative) 03/30/25 22:25 Impressions Foot X-Ray 03/30/25 15:08 XR foot LT min 3V routine HISTORY: 74 years-old Female L foot infection acute soft tissue infection of the left foot COMPARISON: Left foot MRI 02/19/2025 TECHNIQUE: 3 views of the left foot FINDINGS: Arterial soft tissue calcifications with diffuse soft tissue swelling, spouse to the dorsal forefoot. Mild to moderate multifocal osteoarthritis. No acute fracture, dislocation or osseous erosion identified. Large plantar calcaneal disease identified. IMPRESSION: Soft tissue swelling without acute osseous abnormality identified. ACT 112: Negative or not required by law. The above report was generated using voice recognition software. It may contain grammatical, syntax or spelling errors. Electronically signed by: Matthew Blair M.D. 03/30/2025 3:32 PM Duplex Scan Lower Extremity Artery 03/30/25 18:31 Exam(s): US ARTERIAL LEFT LOWER EXTREMITY EXAM: US Duplex Left Lower Extremity Arteries CLINICAL HISTORY: non-healing L foot ulcer; PAD?. OTHER: Other Notes: PAD. Wounds and pain in LLE. Pt is diabetic. Elevated velocity detected within distal BRYSON, 191cm/s. Unable to visualize [employer]ELOPER or peroneal artery. Pt has edema and very tender and is unable to tolerate pressure from the probe. Mostly monophasic waveforms seen throughout. unable to perform MAINE's due to pain and open wounds. TECHNIQUE: Real-time duplex ultrasound scan of the left lower extremity arteries integrating B-mode two-dimensional vascular structure, Doppler spectral analysis and color flow Doppler imaging. COMPARISON: No relevant prior studies available. FINDINGS: Left common femoral artery: Peak systolic velocity in the left common femoral artery is 82 cm/s. Multiphasic waveform. left deep femoral artery: Peak systolic velocity in the left deep femoral artery is 51 cm/s. Biphasic waveform. Left superficial femoral artery: Peak systolic velocity in the left superficial femoral artery is 68 cm/s. Monophasic waveform. Left popliteal artery: Peak systolic velocity in the left popliteal artery is 62 cm/s. Monophasic waveform. Left calf/foot arteries: The left posterior tibial artery appears occluded. The left peroneal artery appears occluded. The left anterior tibial artery demonstrates a peak systolic velocity approximately 44 cm/sec with monophasic waveforms. The distal left anterior tibial artery demonstrates markedly elevated velocities of 190 cm/sec. Peak systolic velocity in the left dorsalis pedis artery is 83 cm/s. Monophasic waveform. Soft tissues: No significant abnormality. IMPRESSION: 1. Extensive atherosclerotic calcification throughout the left lower extremity with monophasic waveforms from the distal femoral artery. No occlusions of the level of the popliteal artery. 2. The left anterior tibial artery demonstrates a peak systolic velocity approximately 44 cm/sec with monophasic waveforms. The distal left anterior tibial artery demonstrates markedly elevated velocities of 190 cm/sec, consistent with moderate, greater than 50% luminal stenosis. The left posterior tibial and peroneal arteries are occluded. Electronically signed by: Anibal Rosario MD 03/31/25 00:[address] 03/30/25 18:31 CT left foot without contrast History: Pain/weakness Comparison: None Technique: CT performed of the extremity without IV contrast. Dose reduction techniques were achieved by using automatic exposure control and/or adjustment of mA and/or kV according to patient size and/or use of iterative reconstruction technique. Findings: No fracture or dislocation. Joint spaces are normally aligned. There is a defect indicating a wound at the soft tissue of the heel posterior the calcaneus. No underlying bony destruction or cortical defects. Generalized soft tissue edema of the foot. No aggressive osseous lesion. Impression: Soft tissue wound at the heel without convincing evidence for underlying osteomyelitis. However MRI is more sensitive. Electronically signed by Jeyson Olmstead 03-30-2025 7:56 PM PG Care Time/CCT Total # of Minutes Spent Total Time Spent with Patient: 80 min provided today to review EMD notes, progress notes, foot x-ray and CT reports, LE doppler report, laboratory studies, interview and examine patient, order peritoneal dialysis and coordinate treatment w/ hr consultant HD RN, order am labs, review medications, order epogen, update medical record Coding Level of Care Code 96319 IN/OBS CONSULT LVL 5,80M Diagnoses ESRD on peritoneal dialysis N18.6; Z99.2 Anemia D64.9 Anemia type: unspecified type Cellulitis L03.90 (2) Anemia Anemia type: unspecified type Qualified Code(s): D64.9 - Anemia, unspecified
--- NOTE | 2025-03-31 12:32 | Vascular Surgery Consultation ---
Date of Consultation March 31, 2025 Assessment & Plan (1) PAD (peripheral artery disease): with ongoing left heel pressure ulcer, now worsening, and evidence of PAD on arterial duplex In reviewing older CT scans, she has a lot of arterial disease in her lower extremities. We would recommend proceeding with CTA abdomen/pelvis with runoff to help plan potential need for angiogram, especially as her left femoral pulse was difficult to palpate and prior CT scans do show disease in her iliac vessels. She would also benefit from off loading her foot-Rooke boot ordered. Continue to optimize medications- continue plavix, restart statin when able. (2) Ulcer of left heel: recommend off loading foot-Rooke boot ordered Continue antibiotics per primary Continue wound care per podiatry Plan for CTA with runoff to assess vasculature and plan for potential interventions. History of Present Illness Reason for Consultation: PAD LLE with foot ulcers Requesting Physician: Dr. Juan Carlos Jacob Attending Physician: Juan Carlos Jacob MD History of Present Illness Dr. Guthrie is a 74 yo female admitted with cellulitis of the left foot and worsening ulcer of left heel who we are being asked to see in regards to PAD with her worsening ulcer. History was obtained from patient, as well as the medical records. Patient has a past medical history significant for ESRD on PD nightly (had prior AVF placement x 2), T2DM, HTN, HLD, CAD s/p stent to LAD (2023), anemia, history of DVT, history of venous insufficiency (treated with clarivein) who presented to [facility] on 03/30 with concerns for worsening left heel and ankle infection. She previously was admitted for treatment of cellulitis 02/16-02/23 in the LLE and had a known left heel pressure ulcer at that time (treated with optifoam). She was placed on IV antibiotics for treatment (IV Unasyn and IV daptomycin) and was discharged to [facility] for rehab, antibiotics eventually changed to Augmentin/zyvox. She was discharged from [facility] on 03/24. Since getting home from [facility], she notes that she has had increased pain in her left heel around the ulcer and in the left foot. She had a follow up with her clerical assigner, Dr. Christiano Galloway on 03/29, who recommended coming to ER for evaluation due to concerns for worsening heel ulcer with infection. In the ED on 03/30, she was noted to be borderline febrile. Lactate was noted to be elevated at 4.1, with repeat at 3.5. Procalcitonin elevated at 1.4. Blood sugars were over 500. On exam in ED she was noted to have purulent drainage from her heel ulcer. She was placed on zosyn and daptomycin. CT left foot did not show any abscess or osteomyelitis. Arterial duplex was also ordered and demonstrated extensive atherosclerotic calcifications throughout the left leg. Waveforms were monophasic in distal femoral artery. The duplex also demonstrate d occlusion of the left PT and peroneal arteries, with patent left AT, however elevated velocities noted distally, consistent with stenosis. She does feel that the ulcer on the heel is getting worse. She also notes a black spot at the tip of her left big toe which she states happened maybe a week ago and she is not aware of anything precipitating the change to the area. She also has a wound on the posterior aspect of her left leg, distally, which she states is because of the cellulitis, and does not think it is worsening. She currently denies any fevers, chills, nausea or vomiting. She continues to complain of pain in her left foot and heel. Prior to this hospitalization she notes the last time she really walked was about one month ago (right before her last hospitalization). When she was walking she was using a walker. At that time she could get around her house and do what she needed to do without pain/claudication. As mentioned above she does have CAD, with history of [place]. She denies history of stroke. She has never smoked. Allergies Allergy/AdvReac Type Severity Reaction Status Date / Time insect venom Allergy Intermediate Swelling Verified 03/30/25 16:51 adhesive tape Allergy Mild Rash Verified 03/30/25 16:51 pollen extracts Allergy Mild "Seasonal Verified 03/30/25 16:51 allergies" [facility] AdvReac Intermediate Constipation, Verified 03/30/25 16:51 vomiting Home Medications Medication Instructions Recorded Confirmed Type lancets (Accu-Chek Fastclix Lancet #50 ea 12/16/18 02/10/25 History Drum) mecobalamin (vitamin B12) 1,000 1,000 mcg PO QPM 09/13/20 03/30/25 History mcg chewable tablet (B12 Active) blood sugar diagnostic (Accu-Chek 10/15/21 02/10/25 History SmartView Test Strips) cholecalciferol (vitamin D3) 62.5 62.5 mcg PO QPM 06/06/22 03/30/25 History mcg (2,500 unit) capsule Walking Cane #1 ea 06/30/23 02/10/25 Rx triamcinolone acetonide 0.1 % 1 applic topical BID PRN skin 07/28/23 03/30/25 History topical ointment issues pen needle, diabetic 32 gauge x #100 ea 08/24/23 02/10/25 Rx 5/32" (BD Nicki 2nd Gen Pen Needle) insulin degludec 100 unit/mL (3 30 unit subcut HS 03/15/24 03/30/25 History mL) subcutaneous pen (Tresiba FlexTouch U-100 insulin) blood-glucose sensor (FreeStyle #2 ea 08/16/24 02/10/25 Rx Kvng 3 Plus Sensor device) vitamin B complex and vitamin C 1 cap PO QPM 08/24/24 03/30/25 History no.20-folic acid 1 mg capsule (Triphrocaps) clopidogrel 75 mg tablet 75 mg PO QPM 12/07/24 03/30/25 History furosemide 80 mg tablet 80 mg PO BID 12/07/24 03/30/25 History insulin aspart U-100 100 unit/mL 8 unit subcut AC 12/07/24 03/30/25 History (3 mL) subcutaneous pen (Novolog FlexPen U-100 Insulin aspart) potassium chloride 10 mEq 40 meq PO QPM 12/07/24 03/30/25 History tablet,extended release buspirone 7.5 mg tablet 7.5 mg PO QPM #0 tabs 12/09/24 03/30/25 Rx cinacalcet 30 mg tablet (Sensipar) 30 mg PO QPM 01/10/25 03/30/25 History rosuvastatin 40 mg tablet (Crestor) 40 mg PO PM 01/27/25 03/30/25 History zolpidem 10 mg tablet 10 mg PO HS #30 tabs 01/31/25 03/30/25 Rx calcitriol 0.25 mcg capsule 0.5 mcg PO QPM 02/14/25 03/30/25 History metoprolol succinate 25 mg 25 mg PO QPM #90 tabs 03/15/25 03/30/25 Rx tablet,extended release 24 hr blood-glucose sensor (Dexcom G7 #3 ea 03/29/25 Rx Sensor device) pregabalin 25 mg capsule (Lyrica) 25 mg PO .2-3 X DAILY pain 03/30/25 03/30/25 History Patient History Medical History Anemia Elevated lactic acid level Elevated troponin Diabetes Anemia ESRD on peritoneal dialysis MRSA infection Type 2 diabetes mellitus with obesity Hypertension Elevated troponin Hyponatremia Hypokalemia Generalized weakness Anxiety Associated dyspnea per pulmonology Fracture of hip, right, closed (04/20/24) right femoral intertrochanteric fracture with mild gapping from a fall Acute cholecystitis Heart failure with preserved ejection fraction CAD (coronary artery disease) Obesity Non-ST elevation [place] (NSTEMI) Pulmonary edema Folate deficiency anemia Metabolic acidosis AV fistula right arm--per pt not currently using yet Periodontal pocket Carious teeth Sleep apnea Per 2009 polysomnography (per 02/2021 pulmonology note)- pt declined treatment or repeat study-NO DEVICE Diastolic CHF Chronic kidney disease, stage 4 (severe) Secondary hyperparathyroidism of renal origin History of DVT (deep vein thrombosis) Multiple "small" DVTs (25+ years ago, 6 years ago) Fibroids History of hypothyroidism HX-NO MEDS Sensorineural hearing loss (SNHL) of both ears Family history of colon cancer in mother Surgical History Status post-operative repair of hip fracture Hx laparoscopic cholecystectomy (01/28/24) Robotic Laparoscopic Cholecystectomy(Not Applicable) - Oseas Madrigal DO, FACS History of coronary artery stent placement S/P arteriovenous (AV) fistula creation RIGHT arm 03/27/21 @ [facility] Dr. Subramanian History of dental surgery History of surgery on arm Right Arm basilic vein transposition 2nd stage @ [facility] Dr. Subramanian 06/10/21 History of colonoscopy Family History Mother Diabetes Renal cell cancer Heart disease Colorectal cancer Hypertension Brother Diabetes Renal cell cancer Heart disease Lung cancer Hypertension Gallbladder disease Father Prostate cancer Heart disease Hypertension Grandmother (Maternal) Colorectal cancer Aunt Diabetes Other Alzheimer disease No family history of adverse response to anesthesia Denies family history of Ovarian cancer Myocardial infarction Breast cancer Social History Smoking Status: Never smoker Second Hand Exposure: No; Do You Dip or Chew Tobacco: No; Hx Alcohol Use: No Hx Substance Use: No Preferred Language: Amharic Communication Ability: Effective Visual Impairment: Limited Hearing Ability: Hard of Hearing Cardiovascular Tech Required: No Beliefs That Will Affect Care: None marital status: Single Current Living Situation: Alone Current Living Situation Comment: has home health nursing current occupational status: retired 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 and also worked in [email or web address] How many Children do You have: 0 Feels Safe at Home: Yes Childhood Exposure to Second-Hand Smoke: No (very little ) Diet: diabetic caffeine: Yes (drinks iced tea every day, sometimes soda ) Dental Care, Regularly: Yes Physical Activity Frequency: 1-2 Times per Week Physical Activity Frequency Comment: weight training, walking Seatbelt Use: always Sunscreen Use: Yes (most times ) Assistive Devices: Glasses and Wheelchair Review of Systems Constitutional: see HPI Respiratory: Denies shortness of breath, coughing, wheezing Cardiovascular: Additional Comments: positive for lower extremity edema, denies chest pain, palpitations Gastrointestinal: see HPI. Genitourinary: makes only small amount of urine. On PD nightly. Musculoskeletal: see HPI. Integumentary: see HPI. Also has stage III pressure ulcer in coccygeal region. No rashes noted. Neurologic: denies any unilateral weakness, numbness, paresthesias, headaches Hematologic / Lymphatic: has history of DVT, anemia Physical Exam Constitutional: WDWN, in no distress, chronically ill appearing Respiratory: Normal respiratory effort, no accessory muscle use noted. Cardiovascular: RRR +2 pitting edema RLE/right foot, +1 miri a left foot/leg +2 right femoral pulse, difficult to fee l left femoral pulse partly from body habitus faintly palpable right DP, + doppler signal to R DP and PT L DP faintly palpable, has phasic doppler signal. No signal noted in left PT. Gastrointestinal (Abdomen): PD catheter in place, slightly tender to palpation Skin: left great toe with eschar at tip, no obvious ulceration noted. left heel with large ulceration with blackened skin, currently dry, no fluctuance noted, no current drainage left lower posterior calf with large dry ulceration skin in left leg thickened, slightly erythematous in foot, ankle area right foot no ulcerations noted, no erythema. Neurologic: no focal deficits noted Results & Data Vital Signs (Past 12 Hours) Vital Signs Temp Pulse Pulse Resp BP Pulse Ox O2 Del Method 03/31/25 10:57 88 03/31/25 10:56 37 C 91 H 23 151/80 H 97 Room Air 03/31/25 08:00 36.9 C 97 H 18 175/95 H 96 Room Air 03/31/25 02:46 36.4 C 87 18 145/77 H 97 Room Air Laboratory Results 03/30/25 Unknown Gram Stain - Final Foot,Left Aerobic and Anaerobic Culture - Pending 03/30/25 16:57 Aerobic Blood Culture - Pending Blood Anaerobic Blood Culture - Pending 03/30/25 16:02 Aerobic Blood Culture - Pending Blood Anaerobic Blood Culture - Pending 03/31/25 03/31/25 03/31/25 11:25 07:25 07:06 WBC 11.26 H RBC 2.87 L Hgb 9.8 L Hct 28.3 L MCV 98.6 MCH 34.1 H MCHC 34.6 RDW Std Deviation 55.9 H RDW Coeff of Poornima 15.7 H Plt Count 379 MPV 9.9 Immature Gran % (Auto) Neut % (Auto) Lymph % (Auto) [place] % (Auto) Eos % (Auto) Baso % (Auto) Neut # (Auto) Lymph # (Auto) [place] # (Auto) Eos # (Auto) Baso # (Auto) Immature Gran # (Auto) PT INR APTT PTT Ratio Sodium 134 L Potassium 4.8 D Chloride 96 L Carbon Dioxide 27 Anion Gap 11 BUN 34 H Creatinine 6.43 H* Est Cr Clr Drug Dosing 8.0 eGFR 6.26 BUN/Creatinine Ratio 5.3 L Glucose 117 H POC Glucose 163 H 106 H Lactate Calcium 8.7 Magnesium 1.5 L Total Bilirubin AST ALT Alkaline Phosphatase Total Protein Albumin Globulin Albumin/Globulin Ratio Procalcitonin Nasal Screen MRSA (PCR) 03/30/25 03/30/25 03/30/25 22:25 20:35 20:09 WBC RBC Hgb Hct MCV MCH MCHC RDW Std Deviation RDW Coeff of Poornima Plt Count MPV Immature Gran % (Auto) Neut % (Auto) Lymph % (Auto) [place] % (Auto) Eos % (Auto) Baso % (Auto) Neut # (Auto) Lymph # (Auto) [place] # (Auto) Eos # (Auto) Baso # (Auto) Immature Gran # (Auto) PT INR APTT PTT Ratio Sodium Potassium Chloride Carbon Dioxide Anion Gap BUN Creatinine Est Cr Clr Drug Dosing eGFR BUN/Creatinine Ratio Glucose POC Glucose 255 H Lactate 3.5 H* Calcium Magnesium Total Bilirubin AST ALT Alkaline Phosphatase Total Protein Albumin Globulin Albumin/Globulin Ratio Procalcitonin Nasal Screen MRSA (PCR) Negative 03/30/25 03/30/25 18:16 16:02 WBC 10.64 RBC 2.65 L Hgb 8.8 L Hct 26.3 L MCV 99.2 MCH 33.2 MCHC 33.5 RDW Std Deviation 56.6 H RDW Coeff of Poornima 15.9 H Plt Count 347 MPV 10.0 Immature Gran % (Auto) 0.5 Neut % (Auto) 79.5 Lymph % (Auto) 11.1 [place] % (Auto) 7.6 Eos % (Auto) 0.8 Baso % (Auto) 0.5 Neut # (Auto) 8.47 H Lymph # (Auto) 1.18 L [place] # (Auto) 0.81 H Eos # (Auto) 0.08 Baso # (Auto) 0.05 Immature Gran # (Auto) 0.05 PT 11.5 INR 1.1 APTT 25 PTT Ratio 0.9 Sodium 132 L Potassium 3.4 L Chloride 93 L Carbon Dioxide 26 Anion Gap 13 H BUN 30 H Creatinine 6.61 H* Est Cr Clr Drug Dosing 7.5 eGFR 6.05 BUN/Creatinine Ratio 4.5 L Glucose 549 H* POC Glucose 506 H* Lactate 4.1 H* Calcium 8.5 L Magnesium Total Bilirubin 0.4 AST 28 ALT 22 Alkaline Phosphatase 84 Total Protein 5.3 L Albumin 2.1 L Globulin 3.2 Albumin/Globulin Ratio 0.7 L Procalcitonin 1.40 H Nasal Screen MRSA (PCR) Diagnostic Findings Foot X-Ray 03/30/25 15:08 XR foot LT min 3V routine HISTORY: 74 years-old Female L foot infection acute soft tissue infection of the left foot COMPARISON: Left foot MRI 02/19/2025 TECHNIQUE: 3 views of the left foot FINDINGS: Arterial soft tissue calcifications with diffuse soft tissue swelling, spouse to the dorsal forefoot. Mild to moderate multifocal osteoarthritis. No acute fracture, dislocation or osseous erosion identified. Large plantar calcaneal disease identified. IMPRESSION: Soft tissue swelling without acute osseous abnormality identified. ACT 112: Negative or not required by law. The above report was generated using voice recognition software. It may contain grammatical, syntax or spelling errors. Electronically signed by: Matthew Blair M.D. 03/30/2025 3:32 PM Duplex Scan Lower Extremity Artery 03/30/25 18:31 Exam(s): US ARTERIAL LEFT LOWER EXTREMITY EXAM: US Duplex Left Lower Extremity Arteries CLINICAL HISTORY: non-healing L foot ulcer; PAD?. OTHER: Other Notes: PAD. Wounds and pain in LLE. Pt is diabetic. Elevated velocity detected within distal BR[place], 191cm/s. Unable to visualize FOOD MIXER ASSEMBLER or peroneal artery. Pt has edema and very tender and is unable to tolerate pressure from the probe. Mostly monophasic waveforms seen throughout. unable to perform MAINE's due to pain and open wounds. TECHNIQUE: Real-time duplex ultrasound scan of the left lower extremity arteries integrating B-mode two-dimensional vascular structure, Doppler spectral analysis and color flow Doppler imaging. COMPARISON: No relevant prior studies available. FINDINGS: Left common femoral artery: Peak systolic velocity in the left common femoral artery is 82 cm/s. Multiphasic waveform. left deep femoral artery: Peak systolic velocity in the left deep femoral artery is 51 cm/s. Biphasic waveform. Left superficial femoral artery: Peak systolic velocity in the left superficial femoral artery is 68 cm/s. Monophasic waveform. Left popliteal artery: Peak systolic velocity in the left popliteal artery is 62 cm/s. Monophasic waveform. Left calf/foot arteries: The left posterior tibial artery appears occluded. The left peroneal artery appears occluded. The left anterior tibial artery demonstrates a peak systolic velocity approximately 44 cm/sec with monophasic waveforms. The distal left anterior tibial artery demonstrates markedly elevated velocities of 190 cm/sec. Peak systolic velocity in the left dorsalis pedis artery is 83 cm/s. Monophasic waveform. Soft tissues: No significant abnormality. IMPRESSION: 1. Extensive atherosclerotic calcification throughout the left lower extremity with monophasic waveforms from the distal femoral artery. No occlusions of the level of the popliteal artery. 2. The left anterior tibial artery demonstrates a peak systolic velocity approximately 44 cm/sec with monophasic waveforms. The distal left anterior tibial artery demonstrates markedly elevated velocities of 190 cm/sec, consistent with moderate, greater than 50% luminal stenosis. The left posterior tibial and peroneal arteries are occluded. Electronically signed by: Anibal Rosario MD 03/31/25 00:[address] 03/30/25 18:31 CT left foot without contrast History: Pain/weakness Comparison: None Technique: CT performed of the extremity without IV contrast. Dose reduction techniques were achieved by using automatic exposure control and/or adjustment of mA and/or kV according to patient size and/or use of iterative reconstruction technique. Findings: No fracture or dislocation. Joint spaces are normally aligned. There is a defect indicating a wound at the soft tissue of the heel posterior the calcaneus. No underlying bony destruction or cortical defects. Generalized soft tissue edema of the foot. No aggressive osseous lesion. Impression: Soft tissue wound at the heel without convincing evidence for underlying osteomyelitis. However MRI is more sensitive. Electronically signed by Jeyson Olmstead 03-30-2025 7:56 PM Medications Administered Home Medications Medication Instructions Recorded Confirmed Last Taken lancets (Accu-Chek Fastclix Lancet #50 ea 12/16/18 02/10/25 Unknown Drum) mecobalamin (vitamin B12) 1,000 1,000 mcg PO QPM 09/13/20 03/30/25 03/29/25 mcg chewable tablet (B12 Active) blood sugar diagnostic (Accu-Chek 10/15/21 02/10/25 Unknown SmartView Test Strips) cholecalciferol (vitamin D3) 62.5 62.5 mcg PO QPM 06/06/22 03/30/25 03/29/25 mcg (2,500 unit) capsule Walking Cane #1 ea 06/30/23 02/10/25 Unknown triamcinolone acetonide 0.1 % 1 applic topical BID PRN skin 07/28/23 03/30/25 01/26/25 14:00 topical ointment issues pen needle, diabetic 32 gauge x #100 ea 08/24/23 02/10/25 Unknown 32" (BD Nicki 2nd Gen Pen Needle) insulin degludec 100 unit/mL (3 30 unit subcut HS 03/15/24 03/30/25 03/29/25 mL) subcutaneous pen (Tresiba FlexTouch U-100 insulin) blood-glucose sensor (FreeStyle #2 ea 08/16/24 02/10/25 Unknown Kvng 3 Plus Sensor device) vitamin B complex and vitamin C 1 cap PO QPM 08/24/24 03/30/25 03/29/25 no.20-folic acid 1 mg capsule (Triphrocaps) clopidogrel 75 mg tablet 75 mg PO QPM 12/07/24 03/30/25 03/29/25 furosemide 80 mg tablet 80 mg PO BID 12/07/24 03/30/25 03/29/25 insulin aspart U-100 100 unit/mL 8 unit subcut AC 12/07/24 03/30/25 01/26/25 20:30 (3 mL) subcutaneous pen (Novolog 6 units FlexPen U-100 Insulin aspart) potassium chloride 10 mEq 40 meq PO QPM 12/07/24 03/30/25 03/29/25 tablet,extended release buspirone 7.5 mg tablet 7.5 mg PO QPM #0 tabs 12/09/24 03/30/25 03/29/25 cinacalcet 30 mg tablet (Sensipar) 30 mg PO QPM 01/10/25 03/30/25 03/29/25 rosuvastatin 40 mg tablet (Crestor) 40 mg PO PM 01/27/25 03/30/25 03/29/25 zolpidem 10 mg tablet 10 mg PO HS #30 tabs 01/31/25 03/30/25 03/29/25 calcitriol 0.25 mcg capsule 0.5 mcg PO QPM 02/14/25 03/30/25 03/29/25 metoprolol succinate 25 mg 25 mg PO QPM #90 tabs 03/15/25 03/30/25 03/29/25 tablet,extended release 24 hr blood-glucose sensor (Dexcom G7 #3 ea 03/29/25 Unknown Sensor device) pregabalin 25 mg capsule (Lyrica) 25 mg PO .2-3 X DAILY pain 03/30/25 03/30/25 Unknown Active Medications Generic Name Dose Route Start Last Admin Trade Name Freq PRN Reason Stop Dose Admin Acetaminophen 650 mg 03/31/25 09:00 03/31/25 08:10 Acetaminophen 325 Mg Tab PO 04/30/25 08:59 650 mg TID EARNESTINE Administration Hydrocodone Bitart/Acetaminophen 1 tab 03/30/25 20:40 03/31/25 12:23 Hydrocodone/Acetaminophen 7.5/325mg Tab PO 04/13/25 20:39 1 tab Q6H PRN Administration Mild-Mod Pain (Scale 1-7) Buspirone HCl 7.5 mg 03/30/25 21:00 03/30/25 22:00 Buspirone 7.5 Mg Tab PO 04/29/25 20:59 7.5 mg QPM EARNESTINE Administration Calcitriol 0.5 mcg 03/30/25 21:00 03/30/25 21:59 Calcitriol 0.25 Mcg Capsule PO 04/29/25 20:59 0.5 mcg QPM EARNESTINE Administration Cinacalcet 30 mg 03/30/25 21:00 03/30/25 22:02 Cinacalcet Hcl 30 Mg Tab PO 04/29/25 20:59 30 mg QPM EARNESTINE Administration Clopidogrel Bisulfate 75 mg 03/30/25 21:00 03/30/25 22:01 Clopidogrel Bisulfate 75 Mg Tab PO 04/29/25 20:59 75 mg QPM EARNESTINE Administration Heparin Sodium (Porcine) 5,000 units 03/31/25 09:00 03/31/25 08:12 Heparin Sod 5,000 Unit/0.5 Ml Vial SQ 04/30/25 08:59 Not Given Q12 EARNESTINE Hydromorphone HCl 0.25 mg 03/31/25 07:57 03/31/25 11:14 Hydromorphone Inj 0.5 Mg/0.5 Ml Syr IV 04/13/25 20:39 0.25 mg Q3H PRN Administration Severe Pain (Scale 8, 9,10) Piperacillin Sod/Tazobactam Sod 4.5 gm in 100 mls @ 25 mls/hr 03/31/25 00:00 03/31/25 12:05 Zosyn IV 04/07/25 00:00 25 mls/hr Q12H EARNESTINE Administration Protocol Insulin Aspart 0 units 03/30/25 21:00 03/31/25 12:23 Insulin Aspart Per Unit Charge SC 04/29/25 20:59 3 units ACHS EARNESTINE Administration Melatonin 3 mg 03/30/25 20:40 03/31/25 01:16 Melatonin 3 Mg Tab PO 04/29/25 20:39 3 mg HS PRN Administration Sleep Metoprolol Succinate 25 mg 03/31/25 09:00 03/31/25 08:10 Metoprolol Succ 25mg Ext Rel Tab PO 04/30/25 08:59 25 mg QAM EARNESTINE Administration Potassium Chloride 40 meq 03/30/25 21:00 03/30/25 21:56 Potassium Chloride 10 Meq Tabcr PO 04/29/25 20:59 40 meq QPM EARNESTINE Administration Pregabalin 25 mg 03/30/25 21:00 03/31/25 08:14 Pregabalin 25 Mg Cap PO 04/29/25 20:59 25 mg BID EARNESTINE Administration Vitamin B Complex/Folic Acid 1 cap 03/30/25 21:00 03/30/25 21:58 Nephrocaps PO 04/29/25 20:59 1 cap QPM EARNESTINE Administration Zolpidem Tartrate 10 mg 03/30/25 21:00 03/30/25 21:59 Zolpidem Tartrate 5 Mg Tab PO 04/29/25 20:59 10 mg HS EARNESTINE Administration PG Care Time/CCT Total # of Minutes Spent Total Time Spent with Patient: Total time spent is greater than 50% in coordination of care (as documented) at patient's floor/unit and/or counseling patient: [place] [address] INT INP/OBS CARE 2/55MIN Patient Type New History Expanded Problem Focused Exam Expanded Problem Focused Medical Decision Making Moderate Complexity Diagnoses PAD (peripheral artery disease) I73.9 Ulcer of left heel L97.429
--- NOTE | 2025-03-31 12:38 | Podiatry Consultation ---
Date of Consultation March 31, 2025 Assessment & Plan (1) PAD (peripheral artery disease): (2) Uncontrolled type 2 diabetes mellitus with hyperglycemia: (3) Cellulitis of foot, left: (4) Cellulitis of left lower extremity from knee to ankle: (5) Decubitus ulcer, heel, left, unstageable: Plan Patient was examined and evaluated. Discussed at length etiology and treatment of left heel and posterior calf ulcerations in setting of worsening arterial disease and potential neglect. She has not been caring for these wounds herself for over a week since her discharge from inpatient rehab and this limb is drastically worse compared to her prior admission. She would benefit initially from enzymatic debridement of these wounds until more definitive vascular assessment is performed. Noted pending CTA will be beneficial prior to surgical intervention. If the limb becomes drastically more infected, she may need surgery regardless to decrease infectious burden. As long as she remains stable, can attempt enzymatic debridement for now. Orders placed for this and we will continue to follow. History of Present Illness Reason for Consultation: Left heel ulceration/cellulitis Attending Physician: Juan Carlos Jacob MD History of Present Illness Patient seen at bedside. Last seen by me outpatient in my office on Thursday. She was recently discharged home from [facility] where she was in inpatient rehab after her last admission here, in the end of January. She had a preulcerative heel wound and more of a cellulitis on her prior visit. Now, seeing her on Thursday, her left calcaneus and right calf were noted to have significantly worsened ulcerations. She states that she was not ready, person ally, for discharge from [facility] but met criteria for discharge, so was sent home. We discussed that she would benefit from admission for further care here at that time, but she was scheduled to see her PCP yesterday and wanted to see them first. She went to that visit and was sent for admission at that time. She denies any systemic signs or symptoms of infection, but she has not been performing any wound care on her own. She is not ambulating much and has not been using any offloading devices in bed, other than occasionally pillows underneath her calf. Allergies Allergy/AdvReac Type Severity Reaction Status Date / Time insect venom Allergy Intermediate Swelling Verified 03/30/25 16:51 adhesive tape Allergy Mild Rash Verified 03/30/25 16:51 pollen extracts Allergy Mild "Seasonal Verified 03/30/25 16:51 allergies" dulaglutide [From [facility]] AdvReac Intermediate Constipation, Verified 03/30/25 16:51 vomiting Home Medications Medication Instructions Recorded Confirmed Type lancets (Accu-Chek Fastclix Lancet #50 ea 12/16/18 02/10/25 History Drum) mecobalamin (vitamin B12) 1,000 1,000 mcg PO QPM 09/13/20 03/30/25 History mcg chewable tablet (B12 Active) blood sugar diagnostic (Accu-Chek 10/15/21 02/10/25 History SmartView Test Strips) cholecalciferol (vitamin D3) 62.5 62.5 mcg PO QPM 06/06/22 03/30/25 History mcg (2,500 unit) capsule Walking Cane #1 ea 06/30/23 02/10/25 Rx triamcinolone acetonide 0.1 % 1 applic topical BID PRN skin 07/28/23 03/30/25 History topical ointment issues pen needle, diabetic 32 gauge x #100 ea 08/24/23 02/10/25 Rx 5/32" (BD Nicki 2nd Gen Pen Needle) insulin degludec 100 unit/mL (3 30 unit subcut HS 03/15/24 03/30/25 History mL) subcutaneous pen (Tresiba FlexTouch U-100 insulin) blood-glucose sensor (FreeStyle #2 ea 08/16/24 02/10/25 Rx Kvng 3 Plus Sensor device) vitamin B complex and vitamin C 1 cap PO QPM 08/24/24 03/30/25 History no.20-folic acid 1 mg capsule (Triphrocaps) clopidogrel 75 mg tablet 75 mg PO QPM 12/07/24 03/30/25 History furosemide 80 mg tablet 80 mg PO BID 12/07/24 03/30/25 History insulin aspart U-100 100 unit/mL 8 unit subcut AC 12/07/24 03/30/25 History (3 mL) subcutaneous pen (Novolog FlexPen U-100 Insulin aspart) potassium chloride 10 mEq 40 meq PO QPM 12/07/24 03/30/25 History tablet,extended release buspirone 7.5 mg tablet 7.5 mg PO QPM #0 tabs 12/09/24 03/30/25 Rx cinacalcet 30 mg tablet (Sensipar) 30 mg PO QPM 01/10/25 03/30/25 History rosuvastatin 40 mg tablet (Crestor) 40 mg PO PM 01/27/25 03/30/25 History zolpidem 10 mg tablet 10 mg PO HS #30 tabs 01/31/25 03/30/25 Rx calcitriol 0.25 mcg capsule 0.5 mcg PO QPM 02/14/25 03/30/25 History metoprolol succinate 25 mg 25 mg PO QPM #90 tabs 03/15/25 03/30/25 Rx tablet,extended release 24 hr blood-glucose sensor (Dexcom G7 #3 ea 03/29/25 Rx Sensor device) pregabalin 25 mg capsule (Lyrica) 25 mg PO .2-3 X DAILY pain 03/30/25 03/30/25 History Patient History Medical History Anemia Elevated lactic acid level Elevated troponin Diabetes Anemia ESRD on peritoneal dialysis MRSA infection Type 2 diabetes mellitus with obesity Hypertension Elevated troponin Hyponatremia Hypokalemia Generalized weakness Anxiety Associated dyspnea per pulmonology Fracture of hip, right, closed (04/20/24) right femoral intertrochanteric fracture with mild gapping from a fall Acute cholecystitis Heart failure with preserved ejection fraction CAD (coronary artery disease) Obesity Non-ST elevation NH (NSTEMI) Pulmonary edema Folate deficiency anemia Metabolic acidosis AV fistula right arm--per pt not currently using yet Periodontal pocket Carious teeth Sleep apnea Per 2009 polysomnography (per 02/2021 pulmonology note)- pt declined treatment or repeat study-NO DEVICE Diastolic CHF Chronic kidney disease, stage 4 (severe) Secondary hyperparathyroidism of renal origin History of DVT (deep vein thrombosis) Multiple "small" DVTs (25+ years ago, 6 years ago) Fibroids History of hypothyroidism HX-NO MEDS Sensorineural hearing loss (SNHL) of both ears Family history of colon cancer in mother Surgical History Status post-operative repair of hip fracture Hx laparoscopic cholecystectomy (01/28/24) Robotic Laparoscopic Cholecystectomy(Not Applicable) - Oseas Madrigal, DO, FACS History of coronary artery stent placement S/P arteriovenous (AV) fistula creation RIGHT arm 03/27/21 @ [facility] Dr. Subramanian History of dental surgery History of surgery on arm Right Arm basilic vein transposition 2nd stage @ [facility] Dr. Subramanian 06/10/21 History of colonoscopy Family History Mother Diabetes Renal cell cancer Heart disease Colorectal cancer Hypertension Brother Diabetes Renal cell cancer Heart disease Lung cancer Hypertension Gallbladder disease Father Prostate cancer Heart disease Hypertension Grandmother (Maternal) Colorectal cancer Aunt Diabetes Other Alzheimer disease No family history of adverse response to anesthesia Denies family history of Ovarian cancer Myocardial infarction Breast cancer Social History Smoking Status: Never smoker Second Hand Exposure: No; Do You Dip or Chew Tobacco: No; Hx Alcohol Use: No Hx Substance Use: No Preferred Language: Faroese Communication Ability: Effective Visual Impairment: Limited Hearing Ability: Hard of Hearing Engraver Block Required: No Beliefs That Will Affect Care: None marital status: Single Current Living Situation: Alone Current Living Situation Comment: has home health nursing current occupational status: retired 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 How many Children do You have: 0 Feels Safe at Home: Yes Childhood Exposure to Second-Hand Smoke: No (very little ) Diet: diabetic caffeine: Yes (drinks iced tea every day, sometimes soda ) Dental Care, Regularly: Yes Physical Activity Frequency: 1-2 Times per Week Physical Activity Frequency Comment: weight training, walking Seatbelt Use: always Sunscreen Use: Yes (most times ) Assistive Devices: Walker Review of Systems Review of Systems: All systems reviewed & are unremarkable except as noted in HPI & below Constitutional: + body aches and + weakness; no fever, n o chills and no fatigue Eyes: no problem reported Ear, Nose, Mouth, Throat: no problem reported Respiratory: no problem reported Cardiovascular: + edema; no problem reported Gastrointestinal: no nausea, no vomiting and no problem reported Genitourinary: no problem reported Musculoskeletal: + limited range of motion and + muscle a trophy; no problem reported Integumentary: + skin ulcer, + wounds and + erythema Neurologic: + loss of sensation, + numbness and + pa resthesia; no generalized weakness Psychiatric: no problem reported Physical Exam Physical Exam: Lower extremity focused exam: DP/PT pulses non palpable bilaterally. CFT is brisk to the digits. Erythema is noted globally to the left foot and ankle with pain dcreased compared to prior visit foot and ankle. There is pain on palpation of the heel specifically where a unstageable, dry, fibrotic heel ulceration is noted. There is adjacent fibrotic wound noted to the posterior calf, proximal to the heel ucleration. Clinical photos noted in Dr. Jacob's note from this date, though this more proximal calf wound is not visualized. It measures 12x6cm and has the same dry eschar. No use of her heel offloading boots is noted and she is laying barefoot in her bed currently. No loss of protective sensation is noted. No abnormal reflexes are noted. MR imaging of the ankle does reveal no significant drainable abscess and no evidence of osteomyelitis to the calcaneus. Further, there is a deeper granular wound noted to the proximal right calf. This measures 6x3cm and is 0.8cm deep. Bleeding is noted without purulence noted. Constitutional: WD/WN, vitals as above + ill appearing and + obese; no acute distress Eyes: PERRL, conjunctivae normal, anicteric sclerae + pinpoint pupils ENMT: external ear and nose normal, oropharynx normal Neck: trachea midline, no thyromegaly normal visual inspection Respiratory: normal respiratory effort; no respiratory distress Cardiovascular: Rate/Rhythm: regular rate and regular rhythm Vessels: + posterior tibial pulses abnormal and + dorsalis pedis pulses abnormal Chest (Breasts): Chest: normal inspection of chest Gastrointestinal (Abdomen): Inspection/Auscultation: abdomen normal to inspection Percussion/Palpation: + abdomen tender and abdomen soft Musculoskeletal: no cyanosis or clubbing, extremities motor strength 5/5 Head/Neck/Chest: normocephalic and head atraumatic Extremities: extremities normal to inspection Neurologic: awake; no focal motor deficits Psychiatric: A+Ox3, euthymic affect Results & Data Vital Signs (Past 12 Hours) Vital Signs Temp Pulse Pulse Resp BP Pulse Ox O2 Del Method 03/31/25 10:57 88 03/31/25 10:56 37 C 91 H 23 151/80 H 97 Room Air 03/31/25 08:00 36.9 C 97 H 18 175/95 H 96 Room Air 03/31/25 02:46 36.4 C 87 18 145/77 H 97 Room Air
[2025-03-31] MEDS: EPOETIN ALFA 10,000 UNITS/ML VIAL SQ SCH (14:35)
[2025-03-31] MEDS: COLLAGENASE OINT 30 GM TUBE EXT SCH (17:58)
[2025-03-31] MEDS: MAGNESIUM SULFATE / D5W 1 GM/100 ML BAG IV ONE (17:58)
[2025-03-31] MEDS: FUROSEMIDE 80 MG TAB PO SCH (18:40)
--- NOTE | 2025-03-31 19:03 | Hospitalist Progress Note ---
Date of Service March 31, 2025 Assessment & Plan (1) Cellulitis of foot, left: (2) Ulcer of left heel: (3) Elevated lactic acid level: (4) Pressure ulcer of coccygeal region, stage 3: (5) ESRD on peritoneal dialysis: (6) Anemia: (7) Hypertension: (8) Hyponatremia: (9) Hypokalemia: (10) CAD (coronary artery disease): (11) History of DVT (deep vein thrombosis): (12) Uncontrolled type 2 diabetes mellitus with hyperglycemia: (13) Venous ulcer of right leg: (14) PAD (peripheral artery disease): Plan 74yo female with ESRD on PD nightly, T2DM, HTN, hyperlipidemia, CAD s/p LAD stent 2023, anemia of chronic disease, PAD, prior DVT, and DOTTIE (untreated) who presents from home with concerns for worsening left heel & ankle infection. Dr Contreras was hospitalized at [facility] from 02/16 to 02/23 for distal LLE cellulitis. She did have a known left heel pressure ulcer during that hospitalization and was treated with optifoam. She was discharged to [facility] and remained at [facility] until 03/24. Per records she was discharged to [facility] on IV Unasyn with IV daptomycin, and finished her antibiotic course for the LLE cellulitis with augmentin/zyvox while rehabbing. Saw podiatry in the outpatient setting on 03/29 and her left heel ulcer was found to be much wor se with evidence of infection. Admission was advised by podiatry for wound care, antibiotics, etc. #severe left heel full thickness pressure ulcer with cellulitis - present on admission - -left heel ulcer was present during January admission but has worsened since that time - see photos in my admission H/P -remains on IV zosyn/daptomycin; continue both; day #2 of each -hold statin while on dapto -CT left foot without osteomyelitis of calcaneous or any deeper infection/abscess -LLE arterial duplex study highly suggestive of significant PAD - appreciate vascular surgery consult -appreciate Dr Christiano Galloway's consult - he advises Santyl's to the left heel daily along with dressing changes -allow weight-bearing but toe touch only, but defer ultimate weight-bearing recs to Dr Galloway -may need a walking boot or similar to allow optimal healing in the future - defer that decision to Dr Galloway -await wound culture; blood cx's thus far negative -needs better DM control #uncontrolled T2DM - -a1c 7.3% in 01/2025 but may not be accurate due to chronic anemia -BSG was >500 upon presentation on 03/30 -was drinking regular Sprite today and BSG was very high this afternoon -will chief counsel patient on these dietary habits - her ability to heal the L foot wound will be very difficult without better glycemic control -cont basal-bolus insulins; converted Tresiba to lantus; novolog for carb coverage & correction -adjust both as needed -BSGs ac/hs -DM diet #ESRD on PD - -appreciate [facility] Nephro consult -to have 5 cycles on PD this evening -BMP am #coccygeal pressure ulcer, stage 3 - present on admission - -wound care consult requested and recs appreciated -in meantime - cleanse with saline, Aquacel Ag, and Optifoam #venous ulcer of right chand - present on admission - -wound care consult appreciated -Aquacel Ag, Optifoam in meantime as per outpatient wound care notes #deep tissue injury sacral/buttock area - -frequent turning, offloading, etc. #PAD - -arterial duplex study of LLE shows significant PAD below the knee -vascular surgery consult by Dr Herrera appreciated -they advise CTA abd/pelvis aorta with run-off -will discuss timing of this study with nephrology given the need for contrast #CAD with prior LAD stent - -follows with Dr Garcia, [facility] Cardiology -no ischemic symptoms at this time -cont plavix -cont meto succ -hold statin while on daptomycin #HTN - -cont meto succ -resume furosemide BID #hyponatremia - -this is pseudohyponatremia in setting of markedly elevated glucose -BMP am #hypokalemia - -improved -cont K supplementation - this is a chronic med for her #hypomagnesemia - -replace IV -repeat level am -most mag levels over the last few years have been low -will place on mag oxide for maintenance as well #anemia of chronic disease - -transferrin sat was 30% in 01/2025 and ferritin was quite high -B12/folate levels 2023 were wnl -trend #h/o DVT / DVT proph - -heparin 5000 BID needs PT/OT evals Admission and Anticipated Discharge Date Admission Date: March 30, 2025 Subjective no events overnight is having pain in L foot needing tylenol prn and narcotic prn for such dilaudid was not helpful for pain she reported? no dyspnea is going to have PD tonight - 5 cycles; typically does 4 cycles Review of Systems Review of Systems: cv - no orthopnea, no cp pulm - no dyspnea Gi - no abd pain or n/v Physical Exam Physical Exam: gen - lying in bed, awake, alert; NAD HENT - MMM neck - no JVD heart - RRR, s1 s2, 1/6 RANDY LSB lungs - CTA b/l, no rales abd - softly distended due to PD fluid (currently she is dwelling), BS+, PD catheter in place - insertion site clean, no HSM, nontender ext - 1+ edema shins/feet skin - left heel unchanged today; L great toe with black eschar at tip of toe psych - a/o x 3 Results & Data Results & Data Vital Signs (Past 12 Hours) Vital Signs Temp Pulse Pulse Resp BP Pulse Ox O2 Del Method 03/31/25 16:10 36.5 C 21 144/79 H 03/31/25 14:00 87 03/31/25 10:57 88 03/31/25 10:56 37 C 91 H 23 151/80 H 97 Room Air 03/31/25 08:00 36.9 C 97 H 18 175/95 H 96 Room Air Laboratory Results Laboratory Results - last 24 hr 03/30/25 03/30/25 03/30/25 20:09 20:35 22:25 WBC RBC Hgb Hct MCV MCH MCHC RDW Std Deviation RDW Coeff of Poornima Plt Count MPV Sodium Potassium Chloride Carbon Dioxide Anion Gap BUN Creatinine Est Cr Clr Drug Dosing eGFR BUN/Creatinine Ratio Glucose POC Glucose 255 H Lactate 3.5 H* Calcium Magnesium Nasal Screen MRSA (PCR) Negative 03/31/25 03/31/25 03/31/25 07:06 07:25 11:25 WBC 11.26 H RBC 2.87 L Hgb 9.8 L Hct 28.3 L MCV 98.6 MCH 34.1 H MCHC 34.6 RDW Std Deviation 55.9 H RDW Coeff of Poornima 15.7 H Plt Count 379 MPV 9.9 Sodium 134 L Potassium 4.8 D Chloride 96 L Carbon Dioxide 27 Anion Gap 11 BUN 34 H Creatinine 6.43 H* Est Cr Clr Drug Dosing 8.0 eGFR 6.26 BUN/Creatinine Ratio 5.3 L Glucose 117 H POC Glucose 106 H 163 H Lactate Calcium 8.7 Magnesium 1.5 L Nasal Screen MRSA (PCR) 03/31/25 03/31/25 16:30 16:32 WBC RBC Hgb Hct MCV MCH MCHC RDW Std Deviation RDW Coeff of Poornima Plt Count MPV Sodium Potassium Chloride Carbon Dioxide Anion Gap BUN Creatinine Est Cr Clr Drug Dosing eGFR BUN/Creatinine Ratio Glucose POC Glucose 362 H* 357 H* Lactate Calcium Magnesium Nasal Screen MRSA (PCR) Diagnostic Findings Microbiology 03/30/25 16:57 Blood Aerobic Blood Culture - Preliminary No growth in Aerobic bottle after 24 hours. 03/30/25 16:57 Blood Anaerobic Blood Culture - Preliminary No growth in Anaerobic bottle after 24 hours. 03/30/25 16:02 Blood Aerobic Blood Culture - Preliminary No growth in Aerobic bottle after 24 hours. 03/30/25 16:02 Blood Anaerobic Blood Culture - Preliminary No growth in Anaerobic bottle after 24 hours. 03/30/25 Unknown Foot,Left Gram Stain - Final 03/30/25 Unknown Foot,Left Aerobic and Anaerobic Culture - Preliminary Pin-point growth present, reincubating. PG Care Time/CCT Total # of Minutes Spent Total Time Spent with Patient: Total time spent is greater than 50% in coordination of care (as documented) at patient's floor/unit and/or counseling patient: Coding Level of Care Code 29248 SUB INP/OBS CARE 3/50MIN Diagnoses Cellulitis of foot, left L03.116 Ulcer of left heel L97.429 Elevated lactic acid level R79.89 Pressure ulcer of coccygeal region, stage 3 L89.153 ESRD on peritoneal dialysis N18.6; Z99.2 Anemia D64.9 Anemia type: unspecified type Essential hypertension I10 Hypertension type: essential hypertension Hyponatremia E87.1 Hypokalemia E87.6 CAD (coronary artery disease) I25.10 History of DVT (deep vein thrombosis) Z86.718 Uncontrolled type 2 diabetes mellitus with hyperglycemia E11.65 Venous ulcer of right leg I83.019; L97.919 PAD (peripheral artery disease) I73.9 (6) Anemia Anemia type: unspecified type Qualified Code(s): D64.9 - Anemia, unspecified (7) Hypertension Hypertension type: essential hypertension Qualified Code(s): I10 - Essential (primary) hypertension
[2025-03-31] MEDS: CHOLECALCIFEROL 25 MCG (1000 UNITS) TAB PO SCH (21:25)
[2025-03-31] MEDS: LANTUS PER UNIT CHARGE SC SCH (21:27)
[2025-03-31] MEDS: CYANOCOBALAMIN (B-12) 500 MCG TABLET PO SCH (21:31)
[2025-03-31] MEDS: MAGNESIUM OXIDE 400 MG TAB PO SCH (21:35)
[2025-04-01 07:34] LABS: Anion Gap 9.0 (3-11); Blood Urea Nitrogen 34.0 mg/dl (6-23); Calcium 8.5 mg/dl (8.6-10.3); Carbon Dioxide 28.0 mmol/L (21-32); Chloride 93.0 mmol/L (98-107); Creatinine Clr Calc Pharmacy 8.3 ml/min; Glucose 186.0 mg/dl (70-99(Fasting)); Magnesium 1.7 mg/dl (1.7-2.4); Potassium 4.4 mmol/L (3.5-5.1); Sodium 130.0 mmol/L (136-145)
[2025-04-01] MEDS ORDERED: DEXTROSE 50% 50 ML SYRINGE IV PRN (08:30)
[2025-04-01] MEDS ORDERED: GLUCAGON FOR INJ 1 MG VIAL SQ PRN (08:30)
[2025-04-01] MEDS ORDERED: GLUCOSE 10 TAB/TUBE PO PRN (08:30)
[2025-04-01] MEDS ORDERED: GLUCOSE 40% GEL 15 GM TUBE PO PRN (08:30)
--- NOTE | 2025-04-01 10:47 | Podiatry Progress Note ---
Date of Service April 01, 2025 Assessment & Plan (1) PAD (peripheral artery disease): (2) Uncontrolled type 2 diabetes mellitus with hyperglycemia: (3) Cellulitis of foot, left: (4) Cellulitis of left lower extremity from knee to ankle: (5) Decubitus ulcer, heel, left, unstageable: Plan Patient was examined and evaluated. - Would benefit from offloading of both heels; wound developing on right foot is just as possible as current ulcer on left - Continue Santyl and DSD daily for debridement of wounds, until vascular intervention/assessment - Will continue to follow Admission and Anticipated Discharge Date Admission Date: March 30, 2025 Subjective Patient seen at bedside. Wearing offloading boot on left foot, none on right. Pain continues to left leg. Santyl applied last night. No new concerns Physical Exam Physical Exam: Lower extremity focused exam: DP/PT pulses non palpable bilaterally. CFT is brisk to the digits. Erythema is noted globally to the left foot and ankle with pain dcreased compared to prior visit foot and ankle. There is pain on palpation of the heel specifically where a unstageable, dry, fibrotic heel ulceration is noted. There is adjacent fibrotic wound noted to the posterior calf, proximal to the heel ucleration. Clinical photos noted in Dr. Jacob's note from this date, though this more proximal calf wound is not visualized. It measures 12x6cm and has the same dry eschar. No use of her heel offloading boots is noted and she is laying barefoot in her bed currently. No loss of protective sensation is noted. No abnormal reflexes are noted. MR imaging of the ankle does reveal no significant drainable abscess and no evidence of osteomyelitis to the calcaneus. Further, there is a deeper granular wound noted to the proximal right calf. This measures 6x3cm and is 0.8cm deep. Bleeding is noted without purulence noted. Constitutional: WD/WN, vitals as above + ill appearing and + obese; no acute distress Eyes: PERRL, conjunctivae normal, anicteric sclerae + pinpoint pupils ENMT: external ear and nose normal, oropharynx normal Neck: trachea midline, no thyromegaly normal visual inspection Respiratory: normal respiratory effort; no respiratory distress Cardiovascular: Rate/Rhythm: regular rate and regular rhythm Vessels: + posterior tibial pulses abnormal and + dorsalis pedis pulses abnormal Chest (Breasts): Chest: normal inspection of chest Gastrointestinal (Abdomen): Inspection/Auscultation: abdomen normal to inspection Percussion/Palpation: + abdomen tender and abdomen soft Musculoskeletal: no cyanosis or clubbing, extremities motor strength 5/5 Head/Neck/Chest: normocephalic and head atraumatic Extremities: extremities normal to inspection Neurologic: awake; no focal motor deficits Psychiatric: A+Ox3, euthymic affect Results & Data Results & Data Vital Signs (Past 12 Hours) Vital Signs Temp Pulse Pulse Resp BP Pulse Ox O2 Del Method 04/01/25 08:15 36.6 C 78 19 04/01/25 07:53 36.6 C 78 19 145/84 H 96 Room Air 04/01/25 07:31 72 04/01/25 02:32 37.5 C 76 16 155/68 H Room Air
--- NOTE | 2025-04-01 10:59 | Nephrology Progress Note ---
Date of Service April 01, 2025 Assessment & Plan (1) ESRD (end stage renal disease): (2) Hypertension: (3) Anemia: (4) Cellulitis of left lower extremity from knee to ankle: (5) Ulcer of left heel: Plan 57-[id number]-[age]ip-year-old female with ESKD on PD (EDW 78kg). Admitted with worsening left heel & ankle infection. She was hospitalized from 02/16 to 02/23 for distal LLE cellulitis and left heel pressure ulcer treated with optifoam and was was discharged to [facility] and remained at [facility] until 03/24. She completed a course of IV Unasyn with IV daptomycin, and finished her antibiotic course for the LLE cellulitis with augmentin/zyvox while at [facility]. She was admitted on 03/29/2025 after she was noted to have worsening of left heel ulcer and evidence of infection during outpatient podiatry appointment. Currently she is on daptomycin and Zosyn. MRI was negative for osteomyelitis. Concern for lower extremity vascular insufficiency and plan for CTA for further evaluation. Has been having peritoneal dialysis regularly, overnight she had 2.6 L UF on De lflex 2.5%. --Plan for CTA this morning and after that we will do 2 hours hemodialysis to preserve her residual renal function. Continue PD tonight as usual. --continue Lasix 80 mg bid --Right arm nephrology precaution, dose medications for eGFR less than 10 --continue calcitriol Admission and Anticipated Discharge Date Admission Date: March 30, 2025 Roman Dyson was seen and evaluated this morning. She reports slight improvement in left foot pain after receiving pain medication this morning. Had PD overnight, had 2.6 L UF, tolerated well, denies any other concern. Electrolyte acceptable. Blood pressure slightly elevated. Tentative plan for CTA for further evaluation of left lower extremity vasculature with nonhealing left foot ulcer. Review of Systems Review of Systems: Detail ROS was otherwise unremarkable. Physical Exam Constitutional: WD/WN, vitals as above + ill appearing; no acute distress Respiratory: no respiratory distress Auscultation: lungs clear to auscultation bilaterally Cardiovascular: Rate/Rhythm: regular rate and regular rhythm Extremities: + edema and + AV fistula (with bruit, aneurysm) Musculoskeletal: left Foot elevated, in dressing and boot. Skin: + turgor decreased and + erythema; no ra shes Neurologic: no focal motor deficits Psychiatric: Orientation: alert and oriented x 3 Results & Data Vital Signs (Past 12 Hours) Vital Signs Temp Pulse Pulse Resp BP Pulse Ox O2 Del Method 04/01/25 08:15 36.6 C 78 19 04/01/25 07:53 36.6 C 78 19 145/84 H 96 Room Air 04/01/25 07:31 72 04/01/25 02:32 37.5 C 76 16 155/68 H Room Air PG Care Time/CCT Total # of Minutes Spent Total Time Spent with Patient: Total time spent is greater than 50% in coordination of care (as documented) at patient's floor/unit and/or counseling patient: Coding Level of Care Code 71974 SUB INP/OBS CARE 235MIN Diagnoses ESRD (end stage renal disease) N18.6 Essential hypertension I10 Hypertension type: essential hypertension Anemia D64.9 Cellulitis of left lower extremity from knee to ankle L03.116 Ulcer of left heel L97.429 (2) Hypertension Hypertension type: essential hypertension Qualified Code(s): I10 - Essential (primary) hypertension
[2025-04-01] MEDS ORDERED: LIDOCAINE 4% CREAM 15 GM TUBE EXT PRN (12:27)
[2025-04-01] MEDS: OPTIRAY 320 125ml IV ONE (12:36)
--- NOTE | 2025-04-01 13:32 | CT Scan Report ---
CT ang AA runof w inc wili melendrez HISTORY: 74 years-old Female LLE PAD, severe; severe L foot infection acute severe pain of the left lower COMPARISON: Duplex venous Doppler study 03/30/2025, CT left femur, tibia and fibula 02/18/2025, CT abd omen and pelvis 01/27/2024 TECHNIQUE: CTA abdomen and pelvis with lower extremity runoff was obtained with IV contrast. 3-D noble nal and sagittal maps were obtained in 6 minute for review. All measurements were obtained according to NASCET criteria. A dose lowering technique was used consistent with the principals of JOZEF. FINDINGS: CT ABDOMEN/PELVIS: Partially imaged pleural effusions with dependent left basilar consolidation/atele ctasis. Patient positioning limits this study. Unremarkable spleen and imaged liver. The pancreas is mildly atrophic. Cholecystectomy. Mild nodular thickening of the adrenal glands is likely benign. Cor tical thinning of the kidneys with numerous left-sided renal cysts. A few indeterminate left-sided re nal lesions are again noted measuring up to 8 mm. Renal vascular calcifications. No hydronephrosis. D ecompressed bladder. Fibroid uterus again noted with 7.7 cm calcified fibroid. No lymphadenopathy vito ntified. No bowel obstruction or bowel wall thickening identified. Colonic diverticulosis. Trace abdo machelle pelvic ascites. A left lateral abdominal wall hernia on image 137 series 3 demonstrates opening of approximately 6 cm containing mesenteric fat and a nonobstructed loop of large bowel. There are a few locules of extraluminal air and trace fluid noted within this hernia sac. A right abdominal appr oach peritoneal catheter distal tip terminates within the left hemipelvis. Trace free pelvic fluid. A nasarca. Degenerative changes of the spine, pelvis and hips. No acute fracture identified. ORIF hardw are of the right femur with a chronic fracture deformity. Avascular necrosis of the femoral heads wit h osteoarthritis of the knees, ankles and hips. CTA ABDOMEN AND PELVIS: Advanced atherosclerosis of the abdominal aorta and branch vessels with appro ximately 50% infrarenal abdominal aortic stenosis on image 100 series 3. There is no abdominal aortic aneurysm or dissection. Vessels of the celiac trunk appear patent. The proximal superior mesenteric artery is patent, however there are areas of moderate to high-grade stenoses within the mid to distal superior mesenteric artery, for example on image 107 series 3. Multifocal high-grade stenoses of the inferior mesenteric artery. Mild to moderate multifocal stenoses of the right renal artery with mode rate to high-grade stenoses noted within the proximal portions of the left renal artery. CTA RIGHT LOWER EXTREMITY: Mild stenoses of the common and external iliac arteries. Patent common fem oral artery. Mild to moderate multifocal stenoses of the superficial femoral artery with high-grade s tenosis of the distal SFA on image 522 series 3. Multifocal stenoses of the popliteal artery which is moderate to high-grade. High-grade stenosis of the tibioperoneal trunk. Extensive atherosclerosis of the lower leg arteries limited evaluation of the ligaments. Multifocal high-grade stenoses and/or oc clusions of the lower leg arteries with probable 3 vessel flow identified level of the ankle. CTA LEFT LOWER EXTREMITY: High-grade stenosis of the mid common femoral artery in image 181 series 3 with high-grade stenosis at the origin of the internal iliac artery. Mild multifocal stenoses of the patent external iliac artery. Patent common femoral artery. Mild to moderate multifocal stenoses thro ughout the superficial femoral artery with multifocal high-grade stenoses of the distal SFA on image 547 series 3 for example. Multifocal moderate to high-grade stenoses of the popliteal artery. Occlusi on at the tibia peroneal trunk with high-grade stenoses within the proximal aspects of the anterior t ibial, posterior tibial and peroneal arteries. Extensive calcifications of the lower leg arteries carter its evaluation of the lumens. Probable three-vessel flow noted at the level of the ankle. Prominent subcutaneous edema of the lower legs along with soft tissue intravenous calcifications. IMPRESSION: 1. A moderate sized left spigelian hernia contains a nonobstructed loop of large bowel. Within the he rnia sac there is a trace amount of free fluid and a few locules of extraluminal air which may be fro m instrumentation such as air introduced through the peritoneal catheter. A perforated viscus conside red less likely. 2. Small pleural effusions with anasarca and trace ascites. 3. Extensive atherosclerosis with multifocal high-grade stenoses of the mesenteric vessels, iliac art eries and arteries of the lower legs as above. 4. Dense calcification involving the arteries of the lower legs limits the study. 5. Incidental findings as above. ACT 112: Negative or not required by law. The above report was generated using voice recognition software. It may contain grammatical, syntax o r spelling errors. Electronically signed by: Matthew Blair M.D. 04/01/2025 1:30 PM
--- NOTE | 2025-04-01 15:39 | Hospitalist Progress Note ---
Date of Service April 01, 2025 Assessment & Plan (1) Cellulitis of foot, left: (2) Decubitus ulcer, heel, left, unstageable: (3) Pressure injury of deep tissue of left buttock: (4) Elevated lactic acid level: (5) Pressure ulcer of coccygeal region, stage 3: (6) ESRD on peritoneal dialysis: (7) Anemia: (8) Hypertension: (9) Hyponatremia: (10) Hypokalemia: (11) CAD (coronary artery disease): (12) History of DVT (deep vein thrombosis): (13) Uncontrolled type 2 diabetes mellitus with hyperglycemia: (14) Venous ulcer of right leg: (15) PAD (peripheral artery disease): (16) Spigelian hernia: Plan 74yo female with ESRD on PD nightly, T2DM, HTN, hyperlipidemia, CAD s/p LAD stent 2023, anemia of chronic disease, PAD, prior DVT, and DOTTIE (untreated) who presents from home with concerns for worsening left heel & ankle infection. Dr Contreras was hospitalized at [facility] from 02/16 to 02/23 for distal LLE cellulitis. She did have a known left heel pressure ulcer during that hospitalization and was treated with optifoam. She was discharged to [facility] and remained at [facility] until 03/24. Per records she was discharged to [facility] on IV Unasyn with IV daptomycin, and finished her antibiotic course for the LLE cellulitis with augmentin/zyvox while rehabbing. Saw podiatry in the outpatient setting on 03/29 and her left heel ulcer was found to be much worse with evidence of infection. Admission was advised by podiatry for wound care, antibiotics, etc. #severe left heel full thickness decubitus pressure ulcer with cellulitis - present on admission - -left heel ulcer was present during January admission but has worsened since that time - see photos in my admission H/P -remains on IV zosyn/daptomycin; continue both; day #3 of each -hold statin while on dapto -culture pending but thus far no specific pathogen identified -CT left foot without osteomyelitis of calcaneous or any deeper infection/abscess -LLE arterial duplex study highly suggestive of significant PAD - appreciate vascular surgery consult -CTA a/p aorta with run-off today - severe b/l PAD starting at both iliacs and running into both legs -defer Rx to Dr Herrera from vascular surgery -I messaged with Dr Herrera after results from CTA returned -- will order Rooke boot for right leg (already has one for left leg) -appreciate Dr Herrera's consult/recs -appreciate Dr Christiano Galloway's consult - he advised Santyl's to the left heel daily along with dressing changes -allow weight-bearing but toe touch only, but defer ultimate weight-bearing recs to Dr Galloway -follow all cultures -needs better DM control #uncontrolled T2DM - -a1c 7.3% in 01/2025 but may not be accurate due to chronic anemia -BSG was >500 upon presentation on 03/30 -was drinking regular Sprite again today and BSG was very high this afternoon -counseled patient on these dietary habits - her ability to heal the L foot wound will be very difficult without better glycemic control -cont basal-bolus insulins; converted Tresiba to lantus; novolog for carb coverage & correction -adjust both insulins today -BSGs ac/hs -DM diet #ESRD on PD - -appreciate [facility] Nephro consult -s/p brief HD session following contrast for CTA study -then PD tonight -BMP am #coccygeal pressure ulcer, stage 3 - present on admission - -wound care consult requested and recs appreciated -cleanse with saline, Aquacel Ag, and Optifoam; frequent turning, etc. #venous ulcer of right chand - present on admission - -wound care consult appreciated -Aquacel Ag, Optifoam in meantime as per outpatient wound care notes #deep tissue injury sacral/buttock area - -frequent turning, offloading, etc. -see photo #PAD - -arterial duplex study of LLE shows significant PAD below the knee -vascular surgery consult by Dr Herrera appreciated -they advised CTA abd/pelvis aorta with run-off -- see discussion above #CAD with prior LAD stent - -follows with Dr Garcia, [facility] Cardiology -no ischemic symptoms at this time -cont plavix -cont meto succ -hold statin while on daptomycin #HTN - -cont meto succ -cont furosemide BID #hyponatremia - -stable at 130 today -BMP am #hypokalemia - -improved -cont K supplementation - this is a chronic med for her #hypomagnesemia - -replaced and improved -most mag levels over the last few years have been low -cont mag oxide for maintenance #anemia of chronic disease - -transferrin sat was 30% in 01/2025 and ferritin was quite high -B12/folate levels 2023 were wnl -trend #h/o DVT / DVT proph - -heparin 5000 BID PT/OT appreciate vascular surgery, nephrology, PT, OT, wound care consults Admission and Anticipated Discharge Date Admission Date: March 30, 2025 Subjective during the visit patient was resting in bed she was on the PD machine staff were about to change all dressings on both legs and buttocks region pain overall in Left ankle/foot is controlled eating well unfortunately she continues to drink regular soda and she is getting sugar spikes from such denies any new complaints had an HD session this afternoon after her contrast CT study was completed Review of Systems 2 Review of Systems: gen - no fevers or chills cv - no chest pain or orthopnea GI - no abd pain or nausea/emesis Physical Exam 2 Physical Exam: gen - lying in bed, awake, alert; NAD HENT - MMM neck - no JVD heart - RRR, s1 s2, 1/6 RANDY LSB lungs - CTA b/l, no rales abd - softly distended due to PD fluid; NONTENDER any location; BS+, PD catheter in place - insertion site clean, no HSM, nontender; large hernia left side of abdomen reducible ext - no edema shins/feet today; pulses b/l feet <1+; cap refill 2-3 sec b/l feet skin - left heel with black eschar - previous devitalized tissue is improved s/p Santyl's,; L great toe with black eschar at tip of toe also unchanged; left distal leg, posterior - black eschar overlying a large ulcer; buttocks/back - see photo; large deep tissue injury with irregular shape unchanged from admission; right leg - see photo psych - a/o x 3 Results & Data Results & Data Vital Signs (Past 12 Hours) Vital Signs Temp Pulse Pulse Pulse Resp BP BP 04/01/25 15:30 75 112/50 L 04/01/25 15:00 72 112/54 L 04/01/25 14:30 56 L 112/88 04/01/25 14:08 72 120/50 L 04/01/25 13:52 36.4 C L 78 04/01/25 11:54 36.4 C L 77 19 163/64 H 04/01/25 08:25 04/01/25 08:15 36.6 C 78 19 04/01/25 07:53 36.6 C 78 19 145/84 H 04/01/25 07:31 72 Pulse Ox O2 Del Method 04/01/25 15:30 04/01/25 15:00 04/01/25 14:30 04/01/25 14:08 04/01/25 13:52 04/01/25 11:54 93 Nasal Cannula 04/01/25 08:25 Room Air 04/01/25 08:15 04/01/25 07:53 96 Room Air 04/01/25 07:31 Laboratory Results Laboratory Results - last 24 hr 04/01/25 06:11 Sodium 130 L Potassium 4.4 Chloride 93 L Carbon Dioxide 28 Anion Gap 9 BUN 34 H Creatinine 6.21 H* Est Cr Clr Drug Dosing 8.3 eGFR 6.53 BUN/Creatinine Ratio 5.5 L Glucose 186 H Microbiology 03/30/25 16:57 Blood Aerobic Blood Culture - Preliminary No growth in Aerobic bottle after 48 hours. 03/30/25 16:57 Blood Anaerobic Blood Culture - Preliminary No growth in Anaerobic bottle after 48 hours. 03/30/25 16:02 Blood Aerobic Blood Culture - Preliminary No growth in Aerobic bottle after 48 hours. 03/30/25 16:02 Blood Anaerobic Blood Culture - Preliminary No growth in Anaerobic bottle after 48 hours. 03/30/25 Unknown Foot,Left Gram Stain - Final 03/30/25 Unknown Foot,Left Aerobic and Anaerobic Culture - Preliminary Low counts mixed probable gastrointestinal microbiota. Diagnostic Findings Right posterior distal leg: Left anterior ankle: Back, buttocks/sacrum: Left heel, left posterior distal leg: Aorta w/Runoff CTA 04/01/25 09:38 CT ang AA runof w inc wo ifdon HISTORY: 74 years-old Female LLE PAD, severe; severe L foot infection acute severe pain of the left lower COMPARISON: Duplex venous Doppler study 03/30/2025, CT left femur, tibia and fibula 02/18/2025, CT abdomen and pelvis 01/27/2024 TECHNIQUE: CTA abdomen and pelvis with lower extremity runoff was obtained with IV contrast. 3-D coronal and sagittal maps were obtained in 6 minute for review. All measurements were obtained according to NASCET criteria. A dose lowering technique was used consistent with the principals of JOZEF. FINDINGS: CT ABDOMEN/PELVIS: Partially imaged pleural effusions with dependent left basilar consolidation/atelectasis. Patient positioning limits this study. Unremarkable spleen and imaged liver. The pancreas is mildly atrophic. Cholecystectomy. Mild nodular thickening of the adrenal glands is likely benign. Cortical thinning of the kidneys with numerous left-sided renal cysts. A few indeterminate left-sided renal lesions are again noted measuring up to 8 mm. Renal vascular calcifications. No hydronephrosis. Decompressed bladder. Fibroid uterus again noted with 7.7 cm calcified fibroid. No lymphadenopathy identified. No bowel obstruction or bowel wall thickening identified. Colonic diverticulosis. Trace abdominal pelvic ascites. A left lateral abdominal wall hernia on image 137 series 3 demonstrates opening of approximately 6 cm containing mesenteric fat and a nonobstructed loop of large bowel. There are a few locules of extraluminal air and trace fluid noted within this hernia sac. A right abdominal approach peritoneal catheter distal tip terminates within the left hemipelvis. Trace free pelvic fluid. Anasarca. Degenerative changes of the spine, pelvis and hips. No acute fracture identified. ORIF hardware of the right femur with a chronic fracture deformity. Avascular necrosis of the femoral heads with osteoarthritis of the knees, ankles and hips. CTA ABDOMEN AND PELVIS: Advanced atherosclerosis of the abdominal aorta and branch vessels with approximately 50% infrarenal abdominal aortic stenosis on image 100 series 3. There is no abdominal aortic aneurysm or dissection. Vessels of the celiac trunk appear patent. The proximal superior mesenteric artery is patent, however there are areas of moderate to high-grade stenoses within the mid to distal superior mesenteric artery, for example on image 107 series 3. Multifocal high-grade stenoses of the inferior mesenteric artery. Mild to moderate multifocal stenoses of the right renal artery with moderate to high- grade stenoses noted within the proximal portions of the left renal artery. CTA RIGHT LOWER EXTREMITY: Mild stenoses of the common and external iliac arteries. Patent common femoral artery. Mild to moderate multifocal stenoses of the superficial femoral artery with high-grade stenosis of the distal SFA on image 522 series 3. Multifocal stenoses of the popliteal artery which is moderate to high-grade. High-grade stenosis of the tibioperoneal trunk. Extensive atherosclerosis of the lower leg arteries limited evaluation of the ligaments. Multifocal high-grade stenoses and/or occlusions of the lower leg arteries with probable 3 vessel flow identified level of the ankle. CTA LEFT LOWER EXTREMITY: High-grade stenosis of the mid common femoral artery in image 181 series 3 with high-grade stenosis at the origin of the internal iliac artery. Mild multifocal stenoses of the patent external iliac artery. Patent common femoral artery. Mild to moderate multifocal stenoses throughout the superficial femoral artery with multifocal high-grade stenoses of the distal SFA on image 547 series 3 for example. Multifocal moderate to high-grade stenoses of the popliteal artery. Occlusion at the tibia peroneal trunk with high-grade stenoses within the proximal aspects of the anterior tibial, posterior tibial and peroneal arteries. Extensive calcifications of the lower leg arteries limits evaluation of the lumens. Probable three-vessel flow noted at the level of the ankle. Prominent subcutaneous edema of the lower legs along with soft tissue intravenous calcifications. IMPRESSION: 1. A moderate sized left spigelian hernia contains a nonobstructed loop of large bowel. Within the hernia sac there is a trace amount of free fluid and a few locules of extraluminal air which may be from instrumentation such as air introduced through the peritoneal catheter. A perforated viscus considered less likely. 2. Small pleural effusions with anasarca and trace ascites. 3. Extensive atherosclerosis with multifocal high-grade stenoses of the mesenteric vessels, iliac arteries and arteries of the lower legs as above. 4. Dense calcification involving the arteries of the lower legs limits the study. 5. Incidental findings as above. ACT 112: Negative or not required by law. The above report was generated using voice recognition software. It may contain grammatical, syntax or spelling errors. Electronically signed by: Matthew Blair M.D. 04/01/2025 1:30 PM PG Care Time/CCT Total # of Minutes Spent Total Time Spent with Patient: Total time spent is greater than 50% in coordination of care (as documented) at patient's floor/unit and/or counseling patient: Coding Level of Care Code 50465 SUB INP/OBS CARE 3/50MIN Diagnoses Cellulitis of foot, left L03.116 Decubitus ulcer, heel, left, unstageable L89.620 Pressure injury of deep tissue of left buttock L89.326 Elevated lactic acid level R79.89 Pressure ulcer of coccygeal region, stage 3 L89.153 ESRD on peritoneal dialysis N18.6; Z99.2 Anemia D64.9 Anemia type: unspecified type Essential hypertension I10 Hypertension type: essential hypertension Hyponatremia E87.1 Hypokalemia E87.6 CAD (coronary artery disease) I25.10 History of DVT (deep vein thrombosis) Z86.718 Uncontrolled type 2 diabetes mellitus with hyperglycemia E11.65 Venous ulcer of right leg I83.019; L97.919 PAD (peripheral artery disease) I73.9 Spigelian hernia K43.9 (7) Anemia Anemia type: unspecified type Qualified Code(s): D64.9 - Anemia, unspecified (8) Hypertension Hypertension type: essential hypertension Qualified Code(s): I10 - Essential (primary) hypertension
[2025-04-01] MEDS: DAPTOmycin 500 MG in SYRINGE 0 ML IV SCH (16:29)
--- NOTE | 2025-04-01 19:58 | Surgery Consultation ---
Date of Consultation April 01, 2025 Assessment & Plan (1) Spigelian hernia: The patient has been admitted on the hospitalist service with surgical recommendations as follows: She is currently receiving care from the hospitalist due to her noted left foot ulcer. Vascular surgery is also considering revascularization at some point General Surgery has been asked to see due to her spigelian hernia in the few free locules of air noted on the CAT scanI suspect that this is an incidental finding and may be related to patient's underlying peritoneal dialysis catheter as the patient has an entirely benign abdominal exam I did discuss with the patient that clinical monitoring should be employed and if she does develop any abdominal pain in the future additional recommendations/interventions will be pursuedif the patient would develop some type of abdominal pain concerning for an acute abdomen I would begin by reimaging the patient's abdomen but the need for this does not appear to be apparent as again her abdomen is entirely benign History of Present Illness Reason for Consultation: Spigelian hernia Attending Physician: Juan Carlos Jacob MD History of Present Illness This is a 74-year-old female who has been admitted on the hospitalist service at [facility] since 03/30/2025. The patient reports that her primary reason for this admission is secondary to severe left heel cellulitis with an underlying ulcer. Due to the patient's heel ulcer a vascular surgery consultation was obtained as it was felt that the patient may require some type of revascularization and thus an aorta runoff CT angiogram was recommended. The patient did have the above-mentioned CAT scan performed today and this s howed the patient had a moderate-sized left spigelian hernia containing a large loop of bowel without evidence of obstruction. Within the hernia sac there is some trace free fluid and a few locules of extraluminal air. General surgery was asked to see the patient for this problem. I visited with the patient at the bedside and she is currently undergoing peritoneal dialysis. Patient says that she initiated peritoneal dialysis approximately 1.5 years ago and this is the time when she had her peritoneal dialysis catheter placed. She notes that she has had the original catheter in place since this time without any need for exchanging it. She notes that has never given her any problems. She also notes that she has known about the above-noted spigelian hernia for approximately 1 year and it has never given her any issues. She notes that she has never seen any surgical provider for consideration of fixing this hernia. She notes that since her admission this time she has absolutely no abdominal pain. She has no nausea or vomiting. She has no fevers, shakes, or chills. She also notes that she has no issues moving her bowels. The patient's most recent labs include a chemistry profile from today including a sodium of 130 with normal potassium. Her BUN and creatinine are 34 and 6.2. Her most recent CBC was from yesterday, 03/31/2025 showing up a white blood cell count 11.2. Her hemoglobin and hematocrit are 9.8 and 28.3 and her platelet counts are normal. Her labs do show that she had an elevated lactic acid level this admission which was 4.1 on 03/30/2025 which has improved to 3.5 on the same day. Review of her records do show that her lactic acid is often elevated. At the time of my interview she was resting comfortably in bed without any pain or no distress. Allergies Allergy/AdvReac Type Severity Reaction Status Date / Time insect venom Allergy Intermediate Swelling Verified 03/30/25 16:51 adhesive tape Allergy Mild Rash Verified 03/30/25 16:51 pollen extracts Allergy Mild "Seasonal Verified 03/30/25 16:51 allergies" dulaglutide [From [facility]] AdvReac Intermediate Constipation, Verified 03/30/25 16:51 vomiting Home Medications Medication Instructions Recorded Confirmed Type lancets (Accu-Chek Fastclix Lancet #50 ea 12/16/18 02/10/25 History Drum) mecobalamin (vitamin B12) 1,000 1,000 mcg PO QPM 09/13/20 03/30/25 History mcg chewable tablet (B12 Active) blood sugar diagnostic (Accu-Chek 10/15/21 02/10/25 History SmartView Test Strips) cholecalciferol (vitamin D3) 62.5 62.5 mcg PO QPM 06/06/22 03/30/25 History mcg (2,500 unit) capsule Walking Cane #1 ea 06/30/23 02/10/25 Rx triamcinolone acetonide 0.1 % 1 applic topical BID PRN skin 07/28/23 03/30/25 History topical ointment issues pen needle, diabetic 32 gauge x #100 ea 08/24/23 02/10/25 Rx 5/32" (BD Nicki 2nd Gen Pen Needle) insulin degludec 100 unit/mL (3 30 unit subcut HS 03/15/24 03/30/25 History mL) subcutaneous pen (Tresiba FlexTouch U-100 insulin) blood-glucose sensor (FreeStyle #2 ea 08/16/24 02/10/25 Rx Kvng 3 Plus Sensor device) vitamin B complex and vitamin C 1 cap PO QPM 08/24/24 03/30/25 History no.20-folic acid 1 mg capsule (Triphrocaps) clopidogrel 75 mg tablet 75 mg PO QPM 12/07/24 03/30/25 History furosemide 80 mg tablet 80 mg PO BID 12/07/24 03/30/25 History insulin aspart U-100 100 unit/mL 8 unit subcut AC 12/07/24 03/30/25 History (3 mL) subcutaneous pen (Novolog FlexPen U-100 Insulin aspart) potassium chloride 10 mEq 40 meq PO QPM 12/07/24 03/30/25 History tablet,extended release buspirone 7.5 mg tablet 7.5 mg PO QPM #0 tabs 12/09/24 03/30/25 Rx cinacalcet 30 mg tablet (Sensipar) 30 mg PO QPM 01/10/25 03/30/25 History rosuvastatin 40 mg tablet (Crestor) 40 mg PO PM 01/27/25 03/30/25 History zolpidem 10 mg tablet 10 mg PO HS #30 tabs 01/31/25 03/30/25 Rx calcitriol 0.25 mcg capsule 0.5 mcg PO QPM 02/14/25 03/30/25 History metoprolol succinate 25 mg 25 mg PO QPM #90 tabs 03/15/25 03/30/25 Rx tablet,extended release 24 hr blood-glucose sensor (Dexcom G7 #3 ea 03/29/25 Rx Sensor device) pregabalin 25 mg capsule (Lyrica) 25 mg PO .2-3 X DAILY pain 03/30/25 03/30/25 History Patient History Medical History Anemia Elevated lactic acid level Elevated troponin Diabetes Anemia ESRD on peritoneal dialysis MRSA infection Type 2 diabetes mellitus with obesity Hypertension Elevated troponin Hyponatremia Hypokalemia Generalized weakness Anxiety Associated dyspnea per pulmonology Fracture of hip, right, closed (04/20/24) right femoral intertrochanteric fracture with mild gapping from a fall Acute cholecystitis Heart failure with preserved ejection fraction CAD (coronary artery disease) Obesity Non-ST elevation [place] (NSTEMI) Pulmonary edema Folate deficiency anemia Metabolic acidosis AV fistula right arm--per pt not currently using yet Periodontal pocket Carious teeth Sleep apnea Per 2009 polysomnography (per 02/2021 pulmonology note)- pt declined treatment or repeat study-NO DEVICE Diastolic CHF Chronic kidney disease, stage 4 (severe) Secondary hyperparathyroidism of renal origin History of DVT (deep vein thrombosis) Multiple "small" DVTs (25+ years ago, 6 years ago) Fibroids History of hypothyroidism HX-NO MEDS Sensorineural hearing loss (SNHL) of both ears Family history of colon cancer in mother Surgical History Status post-operative repair of hip fracture Hx laparoscopic cholecystectomy (01/28/24) Robotic Laparoscopic Cholecystectomy(Not Applicable) - Oseas Madrigal DO, FACS History of coronary artery stent placement S/P arteriovenous (AV) fistula creation RIGHT arm 03/27/21 @ [facility] Dr. Subramanian History of dental surgery History of surgery on arm Right Arm basilic vein transposition 2nd stage @ [facility] Dr. Subramanian 06/10/21 History of colonoscopy Family History Mother Diabetes Renal cell cancer Heart disease Colorectal cancer Hypertension Brother Diabetes Renal cell cancer Heart disease Lung cancer Hypertension Gallbladder disease Father Prostate cancer Heart disease Hypertension Grandmother (Maternal) Colorectal cancer Aunt Diabetes Other Alzheimer disease No family history of adverse response to anesthesia Denies family history of Ovarian cancer Myocardial infarction Breast cancer Social History Smoking Status: Never smoker Second Hand Exposure: No; Do You Dip or Chew Tobacco: No; Hx Alcohol Use: No Hx Substance Use: No Preferred Language: Mongolian Communication Ability: Effective Visual Impairment: Limited Hearing Ability: Hard of Hearing Paster Hat Lining Required: No Beliefs That Will Affect Care: None marital status: Single Current Living Situation: Alone Current Living Situation Comment: has home health nursing current occupational status: retired 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 How many Children do You have: 0 Feels Safe at Home: Yes Childhood Exposure to Second-Hand Smoke: No (very little ) Diet: diabetic caffeine: Yes (drinks iced tea every day, sometimes soda ) Dental Care, Regularly: Yes Physical Activity Frequency: 1-2 Times per Week Physical Activity Frequency Comment: weight training, walking Seatbelt Use: always Sunscreen Use: Yes (most times ) Assistive Devices: Walker Review of Systems Review of Systems: All systems reviewed & are unremarkable except as noted in HPI & below Physical Exam Constitutional: WD/WN, vitals as above Eyes: no conjunctival abnormality Wears glasses ENMT: Ears: no hearing impairment and no external ear abnormality Mouth: no oropharynx abnormality Neck: trachea midline Respiratory: normal respiratory effort; no respiratory distress and no labored breathing Cardiovascular: Rate/Rhythm: regular rate and regular rhythm Gastrointestinal (Abdomen): At the time of my exam the patient's abdomen was entirely benignhe was soft without distention or rigidity. There is no pain with palpation and there is also no rebound tenderness, guarding, or signs of peritonitis. Patient has a peritoneal dialysis catheter noted on the right side of her abdomen the insertion site appears clean. The area around this is nonpainful to palpation. On the patient's left side of her abdomen she did have a palpable area that appeared to be consistent with a noted hernia on CAT scan of this area is also not painful. There are no overlying skin changes or hard masses. Musculoskeletal: No calf tenderness Skin: no rashes Neurologic: moves all extremities Psychiatric: A+Ox3, euthymic affect Results & Data Vital Signs (Past 12 Hours) Vital Signs Temp Pulse Pulse Pulse Resp BP BP 04/01/25 16:15 36.8 C 72 19 127/61 04/01/25 16:15 36.8 C 72 127/61 04/01/25 16:00 65 127/55 L 04/01/25 15:30 75 112/50 L 04/01/25 15:00 72 112/54 L 04/01/25 14:30 56 L 112/88 04/01/25 14:08 72 120/50 L 04/01/25 14:00 79 04/01/25 13:52 36.4 C L 78 04/01/25 11:54 36.4 C L 77 19 163/64 H 04/01/25 08:25 04/01/25 08:15 36.6 C 78 19 Pulse Ox O2 Del Method 04/01/25 16:15 04/01/25 16:15 04/01/25 16:00 04/01/25 15:30 04/01/25 15:00 04/01/25 14:30 04/01/25 14:08 04/01/25 14:00 04/01/25 13:52 04/01/25 11:54 93 Nasal Cannula 04/01/25 08:25 Room Air 04/01/25 08:15 PG Care Time/CCT Total # of Minutes Spent Total Time Spent with Patient: Total time spent is greater than 50% in coordination of care (as documented) at patient's floor/unit and/or counseling patient: Coding Level of Care Code 95242 INT INP/OBS CARE 3/75MIN Diagnoses Spigelian hernia K43.9
[2025-04-01] MEDS: LANTUS PER UNIT CHARGE SC SCH (21:14)
[2025-04-01] MEDS: SENNA 8.6 MG TAB PO SCH (21:25)
--- NOTE | 2025-04-02 10:01 | Surgery Progress Note ---
Date of Service April 02, 2025 Assessment & Plan (1) Spigelian hernia: Plan: She has had this for at least a year and is completely asymptomatic. Little specks of air am sure are from her peritoneal dialysis catheter. Her risk benefit profile would favor not electively repairing the hernia unless it becomes larger or symptomatic. She agrees with this plan. We will sign off. Please call if any concerns or questions. (2) PAD (peripheral artery disease): (3) Decubitus ulcer, heel, left, unstageable: (4) Uncontrolled type 2 diabetes mellitus with hyperglycemia: Admission and Anticipated Discharge Date Admission Date: March 30, 2025 Subjective Patient seen. Feeling well. No abdominal or GI symptoms whatsoever. Physical Exam Constitutional: WD/WN, vitals as above no acute distress and not ill appearing Eyes: PERRL, conjunctivae normal, anicteric sclerae EOM intact bilaterally ENMT: external ear and nose normal, oropharynx normal Ears: no hearing impairment Neck: trachea midline, no thyromegaly Respiratory: normal respiratory effort; no respiratory distress and does not use accessory muscles Cardiovascular: Rate/Rhythm: regular rate and regular rhythm Gastrointestinal (Abdomen): Soft. Nontender. Obvious left-sided ventral hernia. Nonreducible but nontender. Peritoneal dialysis catheter in place on the mid abdomen with no sign of drainage or infection Skin: no rashes, warm and dry Psychiatric: Orientation: alert, oriented x 3 and cooperative Results & Data Vital Signs (Past 12 Hours) Vital Signs Temp Pulse Pulse Resp BP Pulse Ox O2 Del Method 04/02/25 08:10 36.7 C 92 H 14 04/02/25 07:34 36.7 C 92 H 14 150/85 H 98 Room Air 04/02/25 03:39 36.4 C L 79 17 148/92 H 96 Room Air 04/01/25 23:51 37.0 C 82 16 122/60 96 Room Air PG Care Time/CCT Total # of Minutes Spent Total Time Spent with Patient: Total time spent is greater than 50% in coordination of care (as documented) at patient's floor/unit and/or counseling patient: Coding Level of Care Code 93497 SUB INP/OBS CARE 05/21MIN Diagnoses Spigelian hernia K43.9 PAD (peripheral artery disease) I73.9 Decubitus ulcer, heel, left, unstageable L89.620 Uncontrolled type 2 diabetes mellitus with hyperglycemia E11.65
--- NOTE | 2025-04-02 11:39 | Nephrology Progress Note ---
Date of Service April 02, 2025 Assessment & Plan (1) ESRD (end stage renal disease): (2) Hypertension: (3) Anemia: (4) Cellulitis of left lower extremity from knee to ankle: (5) Ulcer of left heel: Plan [id number]-year-old female with ESKD on PD (EDW 78kg). Admitted with worsening left heel & ankle infection. She was hospitalized from 02/16 to 02/23 for distal LLE cellulitis and left heel pressure ulcer treated with optifoam and was was discharged to [facility] and remained at [facility] until 03/24. She completed a course of IV Unasyn with IV daptomycin, and finished her antibiotic course for the LLE cellulitis with augmentin/zyvox while at [facility]. She was admitted on 03/29/2025 after she was noted to have worsening of left heel ulcer and evidence of infection during outpatient podiatry appointment. Currently she is on daptomycin and Zosyn. MRI was negative for osteomyelitis. CT angiogram of aorta and runoff blood vessel on 04/02/2025 showed extensive atherosclerotic disease and stenosis involving all intra- abdominal and lower extremity vasculature. Has been having peritoneal dialysis regularly, overnight she had 2.6 L UF on Delflex 2.5%. --Continue PD tonight as usual. --Waiting on vascular surgery recommendation based on the CT angiogram yesterday. --continue Lasix 80 mg bid --Right arm nephrology precaution, dose medications for eGFR less than 10 --continue calcitriol Admission and Anticipated Discharge Date Admission Date: March 30, 2025 Roman Dyson was seen and evaluated this morning. She reports overall feeling poorly mainly not happy with the nursing care. Had 2 hours hemodialysis yesterday had 1 L UF after she had CT angiogram. Had PD overnight, tolerated well, denies any other concern. Electrolyte acceptable. Blood pressure slightly elevated. Review of Systems Review of Systems: Detail ROS was otherwise unremarkable. Physical Exam Constitutional: WD/WN, vitals as above + ill appearing; no acute distress Respiratory: no respiratory distress Auscultation: lungs clear to auscultation bilaterally Cardiovascular: Rate/Rhythm: regular rate and regular rhythm Extremities: + edema and + AV fistula (with bruit, aneurysm) Skin: + turgor decreased and + erythema; no ra shes Neurologic: no focal motor deficits Psychiatric: Orientation: alert and oriented x 3 Results & Data Vital Signs (Past 12 Hours) Vital Signs Temp Pulse Pulse Resp BP Pulse Ox O2 Del Method 04/02/25 10:43 36.7 C 81 11 L 158/75 H 98 Room Air 04/02/25 08:10 36.7 C 92 H 14 04/02/25 07:34 36.7 C 92 H 14 150/85 H 98 Room Air 04/02/25 03:39 36.4 C L 79 17 148/92 H 96 Room Air 04/01/25 23:51 37.0 C 82 16 122/60 96 Room Air PG Care Time/CCT Total # of Minutes Spent Total Time Spent with Patient: Total time spent is greater than 50% in coordination of care (as documented) at patient's floor/unit and/or counseling patient: Coding Level of Care Code 42810 SUB INP/OBS CARE 2/35MIN Diagnoses ESRD (end stage renal disease) N18.6 Essential hypertension I10 Hypertension type: essential hypertension Anemia D64.9 Cellulitis of left lower extremity from knee to ankle L03.116 Ulcer of left heel L97.429 (2) Hypertension Hypertension type: essential hypertension Qualified Code(s): I10 - Essential (primary) hypertension
[2025-04-02 12:25] LABS: Anion Gap 8.0 (3-11); Calcium 8.4 mg/dl (8.6-10.3); Carbon Dioxide 28.0 mmol/L (21-32); Chloride 98.0 mmol/L (98-107); Magnesium 1.8 mg/dl (1.7-2.4); Potassium 4.4 mmol/L (3.5-5.1); Sodium 134.0 mmol/L (136-145)
[2025-04-02 12:33] LABS: Blood Urea Nitrogen 26.0 mg/dl (6-23); Creatinine Clr Calc Pharmacy 10.5 ml/min; Glucose 93.0 mg/dl (70-99(Fasting))
--- NOTE | 2025-04-02 17:49 | Hospitalist Progress Note ---
Date of Service April 02, 2025 Assessment & Plan (1) Cellulitis of foot, left: (2) Decubitus ulcer, heel, left, unstageable: (3) Pressure injury of deep tissue of left buttock: (4) Elevated lactic acid level: (5) Pressure ulcer of coccygeal region, stage 3: (6) ESRD on peritoneal dialysis: (7) Anemia: (8) Hypertension: (9) Hyponatremia: (10) Hypokalemia: (11) CAD (coronary artery disease): (12) History of DVT (deep vein thrombosis): (13) Uncontrolled type 2 diabetes mellitus with hyperglycemia: (14) Venous ulcer of right leg: (15) PAD (peripheral artery disease): (16) Spigelian hernia: Plan 74yo female with ESRD on PD nightly, T2DM, HTN, hyperlipidemia, CAD s/p LAD stent 2023, anemia of chronic disease, PAD, prior DVT, and DOTTIE (untreated) who presents from home with concerns for worsening left heel & ankle infection. Dr Contreras was hospitalized at [facility] from 02/16 to 02/23 for distal LLE cellulitis. She did have a known left heel pressure ulcer during that hospitalization and was treated with optifoam. She was discharged to [facility] and remained at [facility] until 03/24. Per records she was discharged to [facility] on IV Unasyn with IV daptomycin, and finished her antibiotic course for the LLE cellulitis with augmentin/zyvox while rehabbing. Saw podiatry in the outpatient setting on 03/29 and her left heel ulcer was found to be much worse with evidence of infection. Admission was advised by podiatry for wound care, antibiotics, etc. #severe left heel full thickness decubitus pressure ulcer with cellulitis - present on admission - -left heel ulcer was present during January admission but has worsened since that time - see photos in my admission H/P -remains on IV zosyn/daptomycin; continue both; day #4 of each -hold statin while on dapto -culture from L foot thus far w/o pathogens -blood cx's negative to date -CT left foot without osteomyelitis of calcaneous or any deeper infection/abscess -LLE arterial duplex study highly suggestive of significant PAD - appreciate vascular surgery consult -CTA a/p aorta with run-off - severe b/l PAD starting at both iliacs and running into both legs -defer Rx to Dr Herrera from vascular surgery -b/l Rooke boots ordered for both legs/feet -appreciate Dr Herrera's consult/recs -appreciate Dr Christiano Galloway's consult - he advised Santyl's to the left heel daily along with dressing changes -allow weight-bearing but toe touch only, but defer ultimate weight-bearing recs to Dr Galloway and Dr Herrera #uncontrolled T2DM - -a1c 7.3% in 01/2025 but may not be accurate due to chronic anemia -BSG was >500 upon presentation on 03/30 -continues to drink sugar-sweetened drinks; we have discussed this in detail, patient finds it difficult to stop this practice -her ability to heal the L foot wound will be very difficult without better glycemic control -cont basal-bolus insulins; converted Tresiba to lantus; novolog for carb coverage & correction -BSGs ac/hs -DM diet #ESRD on PD - -appreciate [facility] [facility] Nephro consult -PD at - managed by nephro -[facility] am #coccygeal pressure ulcer, stage 3 - present on admission - -wound care consult requested and recs appreciated -cleanse with saline, Aquacel Ag, and Optifoam; frequent turning, etc. #venous ulcer of right chand - present on admission - -wound care consult appreciated -Aquacel Ag, Optifoam in meantime as per outpatient wound care notes #deep tissue injury sacral/buttock area - -frequent turning, offloading, etc. -see photo #PAD - -arterial duplex study of LLE shows significant PAD below the knee -vascular surgery consult by Dr Herrera appreciated -they advised CTA abd/pelvis aorta with run-off -- see discussion above #CAD with prior LAD stent - -follows with Dr Garcia, [facility] [place] Cardiology -no ischemic symptoms at this time -cont plavix -cont meto succ -hold statin while on daptomycin #HTN - -cont meto succ -cont furosemide BID #hyponatremia - -stable at 134 today -BMP am #hypokalemia - -resolved -cont K supplementation - this is a chronic med for her #hypomagnesemia - -replaced and improved -most mag levels over the last few years have been low -thus, cont mag oxide for maintenance #anemia of chronic disease - -transferrin sat was 30% in 01/2025 and ferritin was quite high -B12/folate levels 2023 were wnl -trend H/H for stability #h/o DVT / DVT proph - -heparin 5000 BID #bletharitis b/l - -erythromycin eye ointment b/l eyes at HS cont PT/OT appreciate vascular surgery, nephrology, PT, OT, wound care consults await recs from vascular about severe PAD of legs Admission and Anticipated Discharge Date Admission Date: March 30, 2025 Subjective tele overnight wnl patient w/o any new complaints during the visit she was rubbing her eyes, stating this is a chronic issue for her left foot pain is controlled continues to drink sugar-sweetened drinks wants to use her Dexcom to check sugars rather than get fingerstick blood sugars +stools Review of Systems Review of Systems: gen - no fevers or chills cv - no chest pain, no orthopnea; edema of legs improved pulm - no dyspnea at rest GI - no N/V Physical Exam Physical Exam: gen - lying in bed, awake, alert; NAD; looks similar to yesterday HENT - MMM eyes - bletharitis b/l neck - no JVD heart - RRR, s1 s2, 1/6 RANDY LSB lungs - CTA b/l, no rales abd - soft; nontender; BS+, PD catheter in place - insertion site clean, no HSM, nontender; large hernia left side of abdomen reducible ext - no edema shins/feet; pulses b/l feet <1+ at best but feet are warm; cap refill 2-3 sec b/l feet skin - black eschar at tip of left great toe unchanged; all dressings on legs not removed today psych - a/o x 3 Results & Data Results & Data Vital Signs (Past 12 Hours) Vital Signs Temp Pulse Pulse Resp BP Pulse Ox O2 Del Method 04/02/25 16:15 37.3 C 93 H 21 170/103 H 100 Room Air 04/02/25 13:50 83 04/02/25 10:43 36.7 C 81 11 L 158/75 H 98 Room Air 04/02/25 08:10 36.7 C 92 H 14 04/02/25 07:34 36.7 C 92 H 14 150/85 H 98 Room Air Laboratory Results Laboratory Results - last 48 hr 04/01/25 04/02/25 21:08 11:38 Sodium 134 L Potassium 4.4 Chloride 98 Carbon Dioxide 28 Anion Gap 8 BUN 26 H Creatinine 4.89 H* D Est Cr Clr Drug Dosing 10.5 eGFR 8.69 BUN/Creatinine Ratio 5.3 L Glucose 93 POC Glucose 254 H Calcium 8.4 L Magnesium 1.8 Microbiology 03/30/25 Unknown Foot,Left Gram Stain - Final 03/30/25 Unknown Foot,Left Aerobic and Anaerobic Culture - Preliminary Low counts mixed probable skin microbiota. 03/30/25 16:57 Blood Aerobic Blood Culture - Preliminary No growth in Aerobic bottle after 48 hours. 03/30/25 16:57 Blood Anaerobic Blood Culture - Preliminary No growth in Anaerobic bottle after 48 hours. 03/30/25 16:02 Blood Aerobic Blood Culture - Preliminary No growth in Aerobic bottle after 48 hours. 03/30/25 16:02 Blood Anaerobic Blood Culture - Preliminary No growth in Anaerobic bottle after 48 hours. PG Care Time/CCT Total # of Minutes Spent Total Time Spent with Patient: Total time spent is greater than 50% in coordination of care (as documented) at patient's floor/unit and/or counseling patient: Coding Level of Care Code 27660 SUB INP/OBS CARE 2/35MIN Diagnoses Cellulitis of foot, left L03.116 Decubitus ulcer, heel, left, unstageable L89.620 Pressure injury of deep tissue of left buttock L89.326 Elevated lactic acid level R79.89 Pressure ulcer of coccygeal region, stage 3 L89.153 ESRD on peritoneal dialysis N18.6; Z99.2 Anemia D64.9 Anemia type: unspecified type Essential hypertension I10 Hypertension type: essential hypertension Hyponatremia E87.1 Hypokalemia E87.6 CAD (coronary artery disease) I25.10 History of DVT (deep vein thrombosis) Z86.718 Uncontrolled type 2 diabetes mellitus with hyperglycemia E11.65 Venous ulcer of right leg I83.019; L97.919 PAD (peripheral artery disease) I73.9 Spigelian hernia K43.9 (7) Anemia Anemia type: unspecified type Qualified Code(s): D64.9 - Anemia, unspecified (8) Hypertension Hypertension type: essential hypertension Qualified Code(s): I10 - Essential (primary) hypertension
[2025-04-02] MEDS: GENTAMICIN SULFATE 0.1% CR 15 GM TUBE EXT PRN (18:00)
[2025-04-02] MEDS: ERYTHROMYCIN OP OINT 5 MG/GM 3.5 GM TUBE OPB SCH (21:25)
[2025-04-02 23:58] LABS: Hematocrit (blood only) 27.7 % (37.0-47.0); Hemoglobin 8.8 g/dL (12.0-16.0); Mean Corpuscular Hemoglobin 32.8 pg (25.0-34.0); Mean Corpuscular Volume 103.4 fL (80.0-100.0); Platelet Count 406 K/uL (130-400); RDW Standard Deviation 60.5 fL (36.4-46.3); Red Blood Count 2.68 M/uL (4.20-5.40); White Blood Count 11.21 K/ul (4.8-10.8)
[2025-04-03] MEDS: EPOETIN ALFA 20,000 UNITS/ML VIAL SQ ONE (10:17)
--- NOTE | 2025-04-03 10:38 | Nephrology Progress Note ---
Date of Service April 03, 2025 Assessment & Plan (1) ESRD (end stage renal disease): (2) Hypertension: (3) Anemia: (4) Cellulitis of left lower extremity from knee to ankle: (5) Ulcer of left heel: Plan [id number]-year-old female with ESKD on PD (EDW 78kg). Admitted with worsening left heel & ankle infection. She was hospitalized from 02/16 to 02/23 for distal LLE cellulitis and left heel pressure ulcer treated with optifoam and was was discharged to [facility] and remained at [facility] until 03/24. She completed a course of IV Unasyn with IV daptomycin, and finished her antibiotic course for the LLE cellulitis with augmentin/zyvox while at [facility]. She was admitted on 03/29/2025 after she was noted to have worsening of left heel ulcer and evidence of infection during outpatient podiatry appointment. Currently she is on daptomycin and Zosyn. MRI was negative for osteomyelitis. CT angiogram of aorta and runoff blood vessel on 04/02/2025 showed extensive atherosclerotic disease and stenosis involving all intra- abdominal and lower extremity vasculature. Has been having peritoneal dialysis regularly, overnight she had 2.6 L UF on Delflex 2.5%. --Continue PD tonight with current PD prescription, UF has been decent. --Epogen 87923 units x 1 dose today --Waiting on vascular surgery recommendation based on the CT angiogram yesterday. --continue Lasix 80 mg bid --Right arm nephrology precaution, dose medications for eGFR less than 10 --continue calcitriol Admission and Anticipated Discharge Date Admission Date: March 30, 2025 Roman Dyson was seen and evaluated this morning. She reports overall feeling about the same. Had 2.3 L UF with PD overnight, tolerated well, denies any other concern. Electrolyte acceptable. Blood pressure slightly elevated. Review of Systems Review of Systems: Detail ROS was otherwise unremarkable. Physical Exam Constitutional: WD/WN, vitals as above + ill appearing; no acute distress Respiratory: no respiratory distress Auscultation: lungs clear to auscultation bilaterally Cardiovascular: Rate/Rhythm: regular rate and regular rhythm Extremities: + AV fistula (with bruit, aneurysm); no edema Skin: + turgor decreased and + erythema; no ra shes Neurologic: no focal motor deficits Psychiatric: Orientation: alert and oriented x 3 Results & Data Vital Signs (Past 12 Hours) Vital Signs Temp Pulse Pulse Resp BP Pulse Ox O2 Del Method 04/03/25 08:10 36.8 C 85 19 04/03/25 07:56 36.8 C 85 19 167/69 H 95 Room Air 04/03/25 03:16 37.1 C 80 17 130/58 L 97 Room Air 04/03/25 00:30 36.4 C L 75 18 124/55 L 91 Room Air PG Care Time/CCT Total # of Minutes Spent Total Time Spent with Patient: Total time spent is greater than 50% in coordination of care (as documented) at patient's floor/unit and/or counseling patient: Coding Level of Care Code 99227 SUB INP/OBS CARE 2/35MIN Diagnoses ESRD (end stage renal disease) N18.6 Essential hypertension I10 Hypertension type: essential hypertension Anemia D64.9 Cellulitis of left lower extremity from knee to ankle L03.116 Ulcer of left heel L97.429 (2) Hypertension Hypertension type: essential hypertension Qualified Code(s): I10 - Essential (primary) hypertension
--- NOTE | 2025-04-03 14:09 | Vascular Surgery Progress Note ---
Date of Service April 03, 2025 Assessment & Plan (1) Ulcer of left heel: Plan: I reviewed her CTA which shows heavy and circumferential calcification from her iliac artery through the femoral/popliteal/tibial segments bilaterally, worse on the left. I do not think she has any open or endovascular reconstruction options that would have any level of durability. Discussed this with her today at length. Pressure offloading and local wound care is the most appropriate next step in therapy. I did tell her that should her heel wound progress that primary amputation would be the surgical option but there is no indication that this is necessary at this time. Admission and Anticipated Discharge Date Admission Date: March 30, 2025 Subjective Overall her pain level has improved, otherwise clinically stable. Physical Exam Physical Exam: Tolerating Rooke boots bilaterally. Less erythema on left lower extremity. Results & Data Vital Signs (Past 12 Hours) Vital Signs Temp Pulse Pulse Resp BP Pulse Ox O2 Del Method 04/03/25 11:38 36.7 C 81 18 181/85 H 92 Room Air 04/03/25 08:10 36.8 C 85 19 04/03/25 07:56 36.8 C 85 19 167/69 H 95 Room Air 04/03/25 03:16 37.1 C 80 17 130/58 L 97 Room Air PG Care Time/CCT Total # of Minutes Spent Total Time Spent with Patient: Total time spent is greater than 50% in coordination of care (as documented) at patient's floor/unit and/or counseling patient:
--- NOTE | 2025-04-03 15:24 | Podiatry Progress Note ---
Date of Service April 03, 2025 Assessment & Plan (1) PAD (peripheral artery disease): (2) Uncontrolled type 2 diabetes mellitus with hyperglycemia: (3) Cellulitis of foot, left: (4) Cellulitis of left lower extremity from knee to ankle: (5) Decubitus ulcer, heel, left, unstageable: Plan Patient was examined and evaluated. - Continue with indefinite offloading boot usage while not bearing weight. - Could benefit from ambulating PT if they deem it safe; wound currently should not stop her from walking. - Continue Santyl and DSD daily for debridement of wounds, until vascular intervention/assessment - Will continue to follow Admission and Anticipated Discharge Date Admission Date: March 30, 2025 Subjective Patient seen at bedside. No new concerns. Is wearing offloading boots on both feet. Still has pain to left heel mostly, worse than pain to back wounds. Pain is worse while foot is offloaded with pillows. Feels better with heel on m attress/in dependency. Physical Exam Physical Exam: Lower extremity focused exam: DP/PT pulses non palpable bilaterally. CFT is brisk to the digits. Erythema is noted globally to the left foot and ankle with pain dcreased compared to prior visit foot and ankle. There is pain on palpation of the heel specifically where a unstageable, dry, fibrotic heel ulceration is noted. There is adjacent fibrotic wound noted to the posterior calf, proximal to the heel ucleration. Clinical photos noted in Dr. Jacob's note from this date, though this more proximal calf wound is not visualized. It measures 12x6cm and has the same dry eschar. No use of her heel offloading boots is noted and she is laying barefoot in her bed currently. No loss of protective sensation is noted. No abnormal reflexes are noted. MR imaging of the ankle does reveal no significant drainable abscess and no evidence of osteomyelitis to the calcaneus. Further, there is a deeper granular wound noted to the proximal right calf. This measures 6x3cm and is 0.8cm deep. Bleeding is noted without purulence noted. Constitutional: WD/WN, vitals as above + ill appearing and + obese; no acute distress Eyes: PERRL, conjunctivae normal, anicteric sclerae + pinpoint pupils ENMT: external ear and nose normal, oropharynx normal Neck: trachea midline, no thyromegaly normal visual inspection Respiratory: normal respiratory effort; no respiratory distress Cardiovascular: Rate/Rhythm: regular rate and regular rhythm Vessels: + posterior tibial pulses abnormal and + dorsalis pedis pulses abnormal Chest (Breasts): Chest: normal inspection of chest Gastrointestinal (Abdomen): Inspection/Auscultation: abdomen normal to inspection Percussion/Palpation: + abdomen tender and abdomen soft Musculoskeletal: no cyanosis or clubbing, extremities motor strength 5/5 Head/Neck/Chest: normocephalic and head atraumatic Extremities: extremities normal to inspection Neurologic: awake; no focal motor deficits Psychiatric: A+Ox3, euthymic affect Results & Data Results & Data Vital Signs (Past 12 Hours) Vital Signs Temp Pulse Pulse Resp BP Pulse Ox O2 Del Method 04/03/25 13:55 82 04/03/25 11:38 36.7 C 81 18 181/85 H 92 Room Air 04/03/25 08:10 36.8 C 85 19 04/03/25 07:56 36.8 C 85 19 167/69 H 95 Room Air 04/03/25 05:35 73
--- NOTE | 2025-04-03 20:19 | Hospitalist Progress Note ---
Date of Service April 03, 2025 Assessment & Plan (1) Cellulitis of foot, left: (2) Decubitus ulcer, heel, left, unstageable: (3) Pressure injury of deep tissue of left buttock: (4) Elevated lactic acid level: (5) Pressure ulcer of coccygeal region, stage 3: (6) ESRD on peritoneal dialysis: (7) Anemia: (8) Hypertension: (9) Hyponatremia: (10) Hypokalemia: (11) CAD (coronary artery disease): (12) History of DVT (deep vein thrombosis): (13) Uncontrolled type 2 diabetes mellitus with hyperglycemia: (14) Venous ulcer of right leg: (15) PAD (peripheral artery disease): (16) Spigelian hernia: (17) Peritoneal cavity free air: Plan 74yo female with ESRD on PD nightly, T2DM, HTN, hyperlipidemia, CAD s/p LAD stent 2023, anemia of chronic disease, PAD, prior DVT, and DOTTIE (untreated) who presents from home with concerns for worsening left heel & ankle infection. Dr Contreras was hospitalized at [facility] from 02/16 to 02/23 for distal LLE cellulitis. She did have a known left heel pressure ulcer during that hospitalization and was treated with optifoam. She was discharged to [facility] and remained at [facility] until 03/24. Per records she was discharged to [facility] on IV Unasyn with IV daptomycin, and finished her antibiotic course for the LLE cellulitis with augmentin/zyvox while rehabbing. Saw podiatry in the outpatient setting on 03/29 and her left heel ulcer was found to be much worse with evidence of infection. Admission was advised by podiatry for wound care, antibiotics, etc. #severe left heel full thickness decubitus pressure ulcer with cellulitis - present on admission - -left heel ulcer was present during January admission but has worsened since that time - see photos in my admission H/P -remains on IV zosyn/daptomycin; continue both; day #5 of each -hold statin while on dapto -culture from L foot still remains negative -blood cx's also remain negative to date -CT left foot without osteomyelitis of calcaneous or any deeper infection/abscess -LLE arterial duplex study highly suggestive of significant PAD -CTA a/p aorta with run-off - severe b/l PAD starting at both iliacs and running into both legs -b/l Rooke boots ordered for both legs/feet -appreciate Dr Herrera's consult/recs from vascular surgery --> Dr Herrera spoke with patient today and no good targets to intervene thus arteriogram and any surgery NOT recommended at this time -appreciate Dr Christiano Galloway's consult - he advised Santyl's to the left heel daily along with dressing changes -allow weight-bearing but toe touch only, but defer ultimate weight-bearing recs to Dr Galloway and Dr Herrera #uncontrolled T2DM - -a1c 7.3% in 01/2025 but may not be accurate due to chronic anemia -BSG was >500 upon presentation on 03/30 -continues to drink sugar-sweetened drinks; we have discussed this in detail, patient finds it difficult to stop this practice -her ability to heal the L foot wound will be very difficult without better glycemic control -cont basal-bolus insulins; converted Tresiba to lantus; novolog for carb coverage & correction -will adjust her insulins -BSGs ac/hs -DM diet #ESRD on PD - -appreciate [facility] Nephro consult -PD at - managed by nephro -BMP am #coccygeal pressure ulcer, stage 3 - present on admission - -wound care consult requested and recs appreciated -cleanse with saline, Aquacel Ag, and Optifoam; frequent turning, etc. #venous ulcer of right chand - present on admission - -wound care consult appreciated -Aquacel Ag, Optifoam in meantime as per outpatient wound care notes #deep tissue injury sacral/buttock area - -frequent turning, offloading, etc. -see photo #PAD - -arterial duplex study of LLE shows significant PAD below the knee -vascular surgery consult by Dr Herrera appreciated -they advised CTA abd/pelvis aorta with run-off -- see discussion above #CAD with prior LAD stent - -follows with Dr Garcia, [facility] Cardiology -no ischemic symptoms at this time -cont plavix -cont meto succ -hold statin while on daptomycin #HTN - -cont meto succ -cont furosemide BID -BPs uncontrolled -- will double meto succ to 25mg BID #hyponatremia - -stable at 134 on last check -BMP am #hypokalemia - -resolved -cont K supplementation - this is a chronic med for her - but lower to 20meq/day -BMP am #hypomagnesemia - -replaced and improved -most mag levels over the last few years have been low -thus, cont mag oxide for maintenance -mag 1.8 on last check -recheck in am tomorrow #anemia of chronic disease - -transferrin sat was 30% in 01/2025 and ferritin was quite high -B12/folate levels 2023 were wnl -trend H/H for stability #h/o DVT / DVT proph - -heparin 5000 BID #bletharitis b/l - -erythromycin eye ointment b/l eyes at HS -already improved cont PT/OT appreciate vascular surgery, nephrology, PT, OT, wound care consults Admission and Anticipated Discharge Date Admission Date: March 30, 2025 Subjective no events overnight tele stable BPs running high her pain in the left leg is controlled eating well she got the news today from vascular that no interventions would take place on her PAD Review of Systems Review of Systems: gen - no fevers or chills cv - no orthopnea pulm - no dyspnea GI - no abd pain; 6 loose stools today Physical Exam Physical Exam: gen - lying in bed, awake, alert; NAD HENT - MMM eyes - bletharitis b/l - improved neck - no JVD heart - RRR, s1 s2, 1/6 RANDY LSB lungs - CTA b/l, no rales abd - soft; nontender; BS+, PD catheter in place; no HSM, large hernia left side of abdomen - reducible ext - no edema shins/feet; pulses b/l feet 1+ but feet are warm; cap refill 2-3 sec b/l feet skin - black eschar at tip of left great toe unchanged; all dressings on left leg not removed today psych - a/o x 3 Results & Data Results & Data Vital Signs (Past 12 Hours) Vital Signs Temp Pulse Pulse Pulse Resp BP Pulse Ox 04/03/25 17:35 36.5 C 82 18 179/106 H 04/03/25 16:02 36.7 C 88 18 183/119 H 94 04/03/25 13:55 82 04/03/25 11:38 36.7 C 81 18 181/85 H 92 O2 Del Method 04/03/25 17:35 04/03/25 16:02 Room Air 04/03/25 13:55 04/03/25 11:38 Room Air Laboratory Results Laboratory Results - last 24 hr 04/02/25 04/03/25 23:29 07:30 WBC 11.21 H RBC 2.68 L Hgb 8.8 L Hct 27.7 L MCV 103.4 H MCH 32.8 MCHC 31.8 L RDW Std Deviation 60.5 H RDW Coeff of Poornima 15.9 H Plt Count 406 H MPV 9.9 POC Glucose 179 H Diagnostic Findings wound cx left foot - still negative blood cx's negative PG Care Time/CCT Total # of Minutes Spent Total Time Spent with Patient: Total time spent is greater than 50% in coordination of care (as documented) at patient's floor/unit and/or counseling patient: Coding Level of Care Code 35256 SUB INP/OBS CARE 2/35MIN Diagnoses Cellulitis of foot, left L03.116 Decubitus ulcer, heel, left, unstageable L89.620 Pressure injury of deep tissue of left buttock L89.326 Elevated lactic acid level R79.89 Pressure ulcer of coccygeal region, stage 3 L89.153 ESRD on peritoneal dialysis N18.6; Z99.2 Anemia D64.9 Anemia type: unspecified type Essential hypertension I10 Hypertension type: essential hypertension Hyponatremia E87.1 Hypokalemia E87.6 CAD (coronary artery disease) I25.10 History of DVT (deep vein thrombosis) Z86.718 Uncontrolled type 2 diabetes mellitus with hyperglycemia E11.65 Venous ulcer of right leg I83.019; L97.919 PAD (peripheral artery disease) I73.9 Spigelian hernia K43.9 Peritoneal cavity free air K66.8 (7) Anemia Anemia type: unspecified type Qualified Code(s): D64.9 - Anemia, unspecified (8) Hypertension Hypertension type: essential hypertension Qualified Code(s): I10 - Essential (primary) hypertension
[2025-04-03] MEDS: POTASSIUM CHLORIDE 10 MEQ TABCR PO SCH (20:53)
[2025-04-03] MEDS: METOPROLOL SUCC 25MG EXT REL TAB PO SCH (21:07)
[2025-04-04 07:11] LABS: Anion Gap 9.0 (3-11); Calcium 8.3 mg/dl (8.6-10.3); Carbon Dioxide 27.0 mmol/L (21-32); Chloride 99.0 mmol/L (98-107); Potassium 3.8 mmol/L (3.5-5.1); Sodium 135.0 mmol/L (136-145)
[2025-04-04 07:29] LABS: Blood Urea Nitrogen 29.0 mg/dl (6-23); Creatinine Clr Calc Pharmacy 9.6 ml/min; Glucose 188.0 mg/dl (70-99(Fasting))
--- NOTE | 2025-04-04 10:14 | Nephrology Progress Note ---
Date of Service April 04, 2025 Assessment & Plan (1) ESRD (end stage renal disease): (2) Hypertension: (3) Anemia: (4) Cellulitis of left lower extremity from knee to ankle: (5) Ulcer of left heel: Plan 17-dejv-cvw-year-old female with ESKD on PD (EDW 78kg). Admitted with worsening left heel & ankle infection. She was hospitalized from 02/16 to 02/23 for distal LLE cellulitis and left heel pressure ulcer treated with optifoam and was was discharged to [facility] and remained at [facility] until 03/24. She completed a course of IV Unasyn with IV daptomycin, and finished her antibiotic course for the LLE cellulitis with augmentin/zyvox while at [facility]. She was admitted on 03/29/2025 after she was noted to have worsening of left heel ulcer and evidence of infection during outpatient podiatry appointment. Currently she is on daptomycin and Zosyn. MRI was negative for osteomyelitis. CT angiogram of aorta and runoff blood vessel on 04/02/2025 showed extensive atherosclerotic disease and stenosis involving all intra- abdominal and lower extremity vasculature but not a candidate for any intervention as per vascular. Has been having peritoneal dialysis regularly, overnight she had 2.6 L UF on Delflex 2.5%. --Focus on left heel pain control and physical therapy --continue PD tonight with current PD prescription, UF has been decent. --Epogen 56749 units x 1 dose given on 04/03/25 --continue Lasix 80 mg bid --Right arm nephrology precaution, dose medications for eGFR less than 10 --continue calcitriol Admission and Anticipated Discharge Date Admission Date: March 30, 2025 Roman Dyson was seen and evaluated this morning. She is mainly bothered by ongoing significant pain in her left heel. Seen by vascular surgery for significant atherosclerotic disease, no plan for any intervention. Had 2.4 L UF with PD overnight, tolerated well. Electrolyte acceptable. Blood pressure slightly elevated. Review of Systems Review of Systems: Detail ROS was otherwise unremarkable. Physical Exam Constitutional: WD/WN, vitals as above + ill appearing; no acute distress Respiratory: no respiratory distress Auscultation: lungs clear to auscultation bilaterally Cardiovascular: Rate/Rhythm: regular rate and regular rhythm Extremities: + AV fistula (with bruit, aneurysm); no edema Skin: + turgor decreased and + erythema; no ra shes Neurologic: no focal motor deficits Psychiatric: Orientation: alert and oriented x 3 Results & Data Vital Signs (Past 12 Hours) Vital Signs Temp Pulse Pulse Pulse Resp BP Pulse Ox 04/04/25 08:04 36.7 C 80 18 04/04/25 07:24 36.8 C 76 17 161/84 H 98 04/04/25 05:31 72 04/04/25 03:01 36.9 C 79 18 162/68 H 97 04/03/25 23:16 36.8 C 77 18 160/79 H 97 O2 Del Method 04/04/25 08:04 04/04/25 07:24 Room Air 04/04/25 05:31 04/04/25 03:01 Room Air 04/03/25 23:16 Room Air PG Care Time/CCT Total # of Minutes Spent Total Time Spent with Patient: Total time spent is greater than 50% in coordination of care (as documented) at patient's floor/unit and/or counseling patient: Coding Level of Care Code 48645 SUB INP/OBS CARE 235MIN Diagnoses ESRD (end stage renal disease) N18.6 Essential hypertension I10 Hypertension type: essential hypertension Anemia D64.9 Cellulitis of left lower extremity from knee to ankle L03.116 Ulcer of left heel L97.429 (2) Hypertension Hypertension type: essential hypertension Qualified Code(s): I10 - Essential (primary) hypertension
[2025-04-04 13:45] LABS: Magnesium 2.0 mg/dl (1.7-2.4)
[2025-04-04] MEDS: INSULIN ASPART 100 UNITS/ML VIAL SC SCH (16:25)
[2025-04-04] MEDS: Continuous Glucose Monitor SCH (16:25)
[2025-04-04] MEDS: CARBOHYDRATES FOR HYPOGLYCEMIA PO PRN (16:25)
[2025-04-04] MEDS: INSULIN GLARGINE 100 UNIT/ML VIAL SC SCH (20:58)
[2025-04-04 21:01] LABS: Cdiff Toxin B Gene (2yr or >) Negative Cdiff Gene (Neg)
--- NOTE | 2025-04-04 21:05 | Hospitalist Progress Note ---
Date of Service April 04, 2025 Assessment & Plan (1) Cellulitis of foot, left: (2) Decubitus ulcer, heel, left, unstageable: (3) Pressure injury of deep tissue of left buttock: (4) Elevated lactic acid level: (5) Pressure ulcer of coccygeal region, stage 3: (6) ESRD on peritoneal dialysis: (7) Anemia: (8) Hypertension: (9) Hyponatremia: (10) Hypokalemia: (11) CAD (coronary artery disease): (12) History of DVT (deep vein thrombosis): (13) Uncontrolled type 2 diabetes mellitus with hyperglycemia: (14) Venous ulcer of right leg: (15) PAD (peripheral artery disease): (16) Spigelian hernia: (17) Peritoneal cavity free air: Plan 74yo female with ESRD on PD nightly, T2DM, HTN, hyperlipidemia, CAD s/p LAD stent 2023, anemia of chronic disease, PAD, prior DVT, and DOTTIE (untreated) who presents from home with concerns for worsening left heel & ankle infection. Dr Contreras was hospitalized at [facility] from 02/16 to 02/23 for distal LLE cellulitis. She did have a known left heel pressure ulcer during that hospitalization and was treated with optifoam. She was discharged to [facility] and remained at [facility] until 03/24. Per records she was discharged to [facility] on IV Unasyn with IV daptomycin, and finished her antibiotic course for the LLE cellulitis with augmentin/zyvox while rehabbing. Saw podiatry in the outpatient setting on 03/29 and her left heel ulcer was found to be much worse with evidence of infection. Admission was advised by podiatry for wound care, antibiotics, etc. #severe left heel full thickness decubitus pressure ulcer with cellulitis - present on admission - -left heel ulcer was present during January admission but has worsened since that time - see photos in my admission H/P -remains on IV zosyn/daptomycin -culture from L foot with bacteroides only -blood cx's negative -d/c daptomycin; can resume statin -cont zosyn today, perhaps convert to PO augmentin on 04/05/25 -Rx ~10 days IV/PO abx? -CT left foot without osteomyelitis of calcaneous or any deeper in fection/abscess -LLE arterial duplex study highly suggestive of significant PAD -CTA a/p aorta with run-off - severe b/l PAD starting at both iliacs and running into both legs -b/l Rooke boots ordered for both legs/feet -appreciate Dr Herrera's consult/recs from vascular surgery --> Dr Herrera spoke with patient and no good targets to intervene thus arteriogram and any surgery NOT recommended at this time -appreciate Dr Christiano Galloway's consult - he advised Santyl's to the left heel daily along with dressing changes -allow weight-bearing but toe touch only, but defer ultimate weight-bearing recs to Dr Galloway and Dr Herrera #uncontrolled T2DM - -a1c 7.3% in 01/2025 but may not be accurate due to chronic anemia -BSG was >500 upon presentation on 03/30 -continues to drink sugar-sweetened drinks; we have discussed this in detail, patient finds it difficult to stop this practice -her ability to heal the L foot wound will be very difficult without better glycemic control -cont basal-bolus insulins; converted Tresiba to lantus; novolog for carb coverage & correction -she had been refusing BSG checks -- just wants to use her Dexcom -hospital policy is that she can use her Dexcom but she will need to self- administer her insulins and will need once daily BSG checks to ensure glucometer & Dexcom are congruent -DM diet #ESRD on PD - -appreciate [facility] Nephro consult -PD at - managed by nephro #coccygeal pressure ulcer, stage 3 - present on admission - -wound care consult requested and recs appreciated #venous ulcer of right leg - present on admission - -wound care consult appreciated -[employer], Optifoam #deep tissue injury sacral/buttock area - -frequent turning, offloading, etc. #PAD - -arterial duplex study of LLE shows significant PAD below the knee -vascular surgery consult by Dr Herrera appreciated -they advised CTA abd/pelvis aorta with run-off -- see discussion above #CAD with prior LAD stent - -follows with Dr Garcia, [facility] Cardiology -no ischemic symptoms at this time -cont plavix -cont meto succ -resume statin since daptomycin will be stopped #HTN - -cont meto succ -cont furosemide BID -BPs uncontrolled -- doubled meto succ to 25mg BID -if BPs don't improve can increase meto succ further or add another agent #hyponatremia - -135 today - resolved #hypokalemia - -resolved -cont K supplementation - this is a chronic med for her - but lower to 20meq/day #hypomagnesemia - -replaced and improved -most mag levels over the last few years have been low -thus, cont mag oxide for maintenance -mag level today - 2 #anemia of chronic disease - -transferrin sat was 30% in 01/2025 and ferritin was quite high -B12/folate levels 2023 were wnl -H/H remain stable #h/o DVT / DVT proph - -heparin 5000 BID #bletharitis b/l - -erythromycin eye ointment b/l eyes at HS -already improved cont PT/OT appreciate vascular surgery, nephrology, PT, OT, wound care consults dispo - [facility] (PT/OT advise rehab) next 1-2 days Admission and Anticipated Discharge Date Admission Date: March 30, 2025 Subjective no events overnight patient will be self-administering her own insulin because she wants to use her Dexcom rather than accuchecks she continues with pain in left foot/distal left leg no dyspnea ongoing diarrhea - c diff dispatched PD - no issues no abd pain eating well continues to drink sugar-sweetened drinks Review of Systems Review of Systems: gen - no fevers or chills cv - no orthopnea pulm - no dyspnea GI - loose stool - no foul odor Physical Exam Physical Exam: gen - lying in bed, awake, alert; NAD HENT - MMM eyes - bletharitis b/l - modestly improved neck - no JVD heart - RRR, s1 s2, 1/6 RANDY LSB lungs - CTA b/l, no rales abd - soft; nontender; BS+, PD catheter in place; no HSM, large hernia left side of abdomen - again nontender & reducible ext - no edema shins/feet; pulses b/l feet 1+; feet are warm to touch; cap refill 2-3 sec b/l feet skin - black eschar at tip of left great toe unchanged; all dressings on left leg not removed today; right posterior calf ulceration with black eschar but no purulence or odor; sacral/buttock region with multiple superficial ulcers and erythema/irritated skin (see photos from wound care team from today) psych - a/o x 3 Results & Data Results & Data Vital Signs (Past 12 Hours) Vital Signs Temp Pulse Pulse Pulse Resp BP Pulse Ox 04/04/25 20:00 36.5 C 77 18 105/36 L 95 04/04/25 20:00 04/04/25 18:05 36.5 C 80 18 176/70 H 04/04/25 15:25 36.4 C L 79 16 181/70 H 97 04/04/25 13:00 84 04/04/25 11:43 36.5 C 87 19 159/59 H 93 Pulse Ox O2 Del Method O2 Del Method 04/04/25 20:00 Room Air 04/04/25 20:00 95 Room Air 04/04/25 18:05 04/04/25 15:25 Room Air 04/04/25 13:00 04/04/25 11:43 Room Air Laboratory Results Laboratory Results - last 48 hr 04/04/25 04/04/25 04/04/25 05:56 07:27 11:41 Sodium 135 L Potassium 3.8 Chloride 99 Carbon Dioxide 27 Anion Gap 9 BUN 29 H Creatinine 5.29 H* D Est Cr Clr Drug Dosing 9.6 eGFR 7.91 BUN/Creatinine Ratio 5.5 L Glucose 188 H POC Glucose 184 H 74 Calcium 8.3 L Magnesium 2.0 PG Care Time/CCT Total # of Minutes Spent Total Time Spent with Patient: Total time spent is greater than 50% in coordination of care (as documented) at patient's floor/unit and/or counseling patient: Coding Level of Care Code 96896 SUB INP/OBS CARE 2/35MIN Diagnoses Cellulitis of foot, left L03.116 Decubitus ulcer, heel, left, unstageable L89.620 Pressure injury of deep tissue of left buttock L89.326 Elevated lactic acid level R79.89 Pressure ulcer of coccygeal region, stage 3 L89.153 ESRD on peritoneal dialysis N18.6; Z99.2 Anemia D64.9 Anemia type: unspecified type Essential hypertension I10 Hypertension type: essential hypertension Hyponatremia E87.1 Hypokalemia E87.6 CAD (coronary artery disease) I25.10 History of DVT (deep vein thrombosis) Z86.718 Uncontrolled type 2 diabetes mellitus with hyperglycemia E11.65 Venous ulcer of right leg I83.019; L97.919 PAD (peripheral artery disease) I73.9 Spigelian hernia K43.9 Peritoneal cavity free air K66.8 (7) Anemia Anemia type: unspecified type Qualified Code(s): D64.9 - Anemia, unspecified (8) Hypertension Hypertension type: essential hypertension Qualified Code(s): I10 - Essential (primary) hypertension
--- NOTE | 2025-04-04 21:35 | Podiatry Progress Note ---
Date of Service April 04, 2025 Assessment & Plan (1) PAD (peripheral artery disease): (2) Uncontrolled type 2 diabetes mellitus with hyperglycemia: (3) Cellulitis of foot, left: (4) Cellulitis of left lower extremity from knee to ankle: (5) Decubitus ulcer, heel, left, unstageable: Plan Patient was examined and evaluated. - Continue with indefinite offloading boot usage while not bearing weight. - Could benefit from ambulating PT if they deem it safe; wound currently should not stop her from walking. - Continue Santyl and DSD daily for debridement of wounds - Without revascularization available and with significant arterial insufficiency, surgical debridement would be more harmful than beneficial. - Sharp debridement would introduce new trauma and likely accelerate potential limb loss. Instead, continue Santyl indefinitely. - If infection develops, surgical debridement, i.e. incision and drainage with excisional debridement of non-viable tissue, would be alternative to primary BKA/AKA - Stable for d/c to inpatient rehab/SNF from foot/ankle standpoint. - Will continue to follow Admission and Anticipated Discharge Date Admission Date: March 30, 2025 Subjective Patient seen at bedside at lunch. States she is coming to terms with state of foot/leg. Remains optimistic ointment can work. Continues to try to offload heels, though seen in bed with no offloading boot to the affected left heel. Can only "tolerate" boot for "so long" before having pain from elevation. Denies any systemic signs of infection. Review of Systems Constitutional: + body aches and + weakness; no fever, n o chills and no fatigue Eyes: no problem reported Ear, Nose, Mouth, Throat: no problem reported Respiratory: no problem reported Cardiovascular: + edema; no problem reported Gastrointestinal: no nausea, no vomiting and no problem reported Genitourinary: no problem reported Musculoskeletal: + limited range of motion and + muscle a trophy; no problem reported Integumentary: + skin ulcer, + wounds and + erythema Neurologic: + loss of sensation, + numbness and + pa resthesia; no generalized weakness Psychiatric: no problem reported Physical Exam Physical Exam: Lower extremity focused exam: DP/PT pulses non palpable bilaterally. CFT is brisk to the digits. Erythema is noted globally to the left foot and ankle with pain dcreased compared to prior visit foot and ankle. There is pain on palpation of the heel specifically where a unstageable, dry, fibrotic heel ulcer ation is noted. There is adjacent fibrotic wound noted to the posterior calf, proximal to the heel ucleration. Clinical photos noted in Dr. Jacob's note from this date, though this more proximal calf wound is not visualized. It measures 12x6cm and has the same dry eschar. No use of her heel offloading boots is noted and she is laying barefoot in her bed currently. No loss of protective sensation is noted. No abnormal reflexes are noted. MR imaging of the ankle does reveal no significant drainable abscess and no evidence of osteomyelitis to the calcaneus. Further, there is a deeper granular wound noted to the proximal right calf. This measures 6x3cm and is 0.8cm deep. Bleeding is noted without purulence noted. Constitutional: WD/WN, vitals as above + ill appearing and + obese; no acute distress Eyes: PERRL, conjunctivae normal, anicteric sclerae + pinpoint pupils ENMT: external ear and nose normal, oropharynx normal Neck: trachea midline, no thyromegaly normal visual inspection Respiratory: normal respiratory effort; no respiratory distress Cardiovascular: Rate/Rhythm: regular rate and regular rhythm Vessels: + posterior tibial pulses abnormal and + dorsalis pedis pulses abnormal Chest (Breasts): Chest: normal inspection of chest Gastrointestinal (Abdomen): Inspection/Auscultation: abdomen normal to inspection Percussion/Palpation: + abdomen tender and abdomen soft Musculoskeletal: no cyanosis or clubbing, extremities motor strength 5/5 Head/Neck/Chest: normocephalic and head atraumatic Extremities: extremities normal to inspection Neurologic: awake; no focal motor deficits Psychiatric: A+Ox3, euthymic affect Results & Data Results & Data Vital Signs (Past 12 Hours) Vital Signs Temp Pulse Pulse Pulse Resp BP Pulse Ox 04/04/25 20:00 36.5 C 77 18 105/36 L 95 04/04/25 20:00 04/04/25 18:05 36.5 C 80 18 176/70 H 04/04/25 15:25 36.4 C L 79 16 181/70 H 97 04/04/25 13:00 84 04/04/25 11:43 36.5 C 87 19 159/59 H 93 Pulse Ox O2 Del Method O2 Del Method 04/04/25 20:00 Room Air 04/04/25 20:00 95 Room Air 04/04/25 18:05 04/04/25 15:25 Room Air 04/04/25 13:00 04/04/25 11:43 Room Air
[2025-04-05 06:04] LABS: Hematocrit (blood only) 27.2 % (37.0-47.0); Hemoglobin 9.0 g/dL (12.0-16.0); Mean Corpuscular Hemoglobin 33.7 pg (25.0-34.0); Mean Corpuscular Volume 101.9 fL (80.0-100.0); Platelet Count 457 K/uL (130-400); RDW Standard Deviation 59.5 fL (36.4-46.3); Red Blood Count 2.67 M/uL (4.20-5.40); White Blood Count 9.97 K/ul (4.8-10.8)
--- NOTE | 2025-04-05 10:12 | Nephrology Progress Note ---
Date of Service April 05, 2025 Assessment & Plan (1) ESRD (end stage renal disease): (2) Hypertension: (3) Anemia: (4) Cellulitis of left lower extremity from knee to ankle: (5) Ulcer of left heel: Plan 2-fzvf-nya-year-old female with ESKD on PD (EDW 78kg). Admitted with worsening left heel & ankle infection. She was hospitalized from 02/16 to 02/23 for distal LLE cellulitis and left heel pressure ulcer treated with optifoam and was was discharged to [facility] and remained at [facility] until 03/24. She completed a course of IV Unasyn with IV daptomycin, and finished her antibiotic course for the LLE cellulitis with augmentin/zyvox while at [facility]. She was admitted on 03/29/2025 after she was noted to have worsening of left heel ulcer and evidence of infection during outpatient podiatry appointment. Currently she is on daptomycin and Zosyn. MRI was negative for osteomyelitis. CT angiogram of aorta and runoff blood vessel on 04/02/2025 showed extensive atherosclerotic disease and stenosis involving all intra- abdominal and lower extremity vasculature but not a candidate for any intervention as per vascular. Has been having peritoneal dialysis regularly, overnight she has been having UF about 2.5 L on Delflex 2.5%. --continue PD tonight with current PD prescription, UF has been decent. --Epogen 77113 units x 1 dose given on 04/03/25 --continue Lasix 80 mg bid --Right arm nephrology precaution, dose medications for eGFR less than 10 --continue calcitriol --possible DC to Rehab Admission and Anticipated Discharge Date Admission Date: March 30, 2025 Roman Dyson was seen and evaluated this morning. She is feeling slightly better today as her left heel pain improved. Had 2.5 L UF with PD overnight, tolerated well. Electrolyte acceptable. Blood pressure has been fair. Has been participating with physical therapy but she feels she needs more intensive therapy and looking [facility] Review of Systems Review of Systems: Detail ROS was otherwise unremarkable. Physical Exam Constitutional: WD/WN, vitals as above + ill appearing; no acute distress Respiratory: no respiratory distress Auscultation: lungs clear to auscultation bilaterally Cardiovascular: Rate/Rhythm: regular rate and regular rhythm Extremities: + AV fistula (with bruit, aneurysm); no edema Skin: + turgor decreased Neurologic: no focal motor deficits Psychiatric: Orientation: alert and oriented x 3 Results & Data Vital Signs (Past 12 Hours) Vital Signs Temp Pulse Pulse Resp BP Pulse Ox O2 Del Method 04/05/25 08:45 136/66 04/05/25 08:20 80 19 196/95 H 97 Room Air 04/05/25 03:14 80 20 146/74 H 04/05/25 02:49 37.1 C 77 18 94/48 L 96 Room Air 04/04/25 22:11 37.1 C 79 18 98/36 L 93 Room Air PG Care Time/CCT Total # of Minutes Spent Total Time Spent with Patient: Total time spent is greater than 50% in coordination of care (as documented) at patient's floor/unit and/or counseling patient: Coding Level of Care Code 95916 SUB INP/OBS CARE 2/35MIN Diagnoses ESRD (end stage renal disease) N18.6 Essential hypertension I10 Hypertension type: essential hypertension Anemia D64.9 Cellulitis of left lower extremity from knee to ankle L03.116 Ulcer of left heel L97.429 (2) Hypertension Hypertension type: essential hypertension Qualified Code(s): I10 - Essential (primary) hypertension
[2025-04-05 14:58] LABS: Anion Gap 12.0 (3-11); Blood Urea Nitrogen 30.0 mg/dl (6-23); Calcium 8.5 mg/dl (8.6-10.3); Carbon Dioxide 26.0 mmol/L (21-32); Chloride 97.0 mmol/L (98-107); Creatinine Clr Calc Pharmacy 8.5 ml/min; Glucose 232.0 mg/dl (70-99(Fasting)); Potassium 4.2 mmol/L (3.5-5.1); Sodium 135.0 mmol/L (136-145)
[2025-04-05 15:46] VITALS: RESP 18
[2025-04-05] MEDS: AMOXICILLIN/CLAVULANATE 250 MG TAB PO SCH (17:14)
--- NOTE | 2025-04-05 18:01 | Hospitalist Progress Note ---
Date of Service April 05, 2025 Assessment & Plan (1) Cellulitis of foot, left: (2) Decubitus ulcer, heel, left, unstageable: (3) Pressure injury of deep tissue of left buttock: (4) Elevated lactic acid level: (5) Pressure ulcer of coccygeal region, stage 3: (6) ESRD on peritoneal dialysis: (7) Anemia: (8) Hypertension: (9) Hyponatremia: (10) Hypokalemia: (11) CAD (coronary artery disease): (12) History of DVT (deep vein thrombosis): (13) Uncontrolled type 2 diabetes mellitus with hyperglycemia: (14) Venous ulcer of right leg: (15) PAD (peripheral artery disease): (16) Spigelian hernia: (17) Peritoneal cavity free air: Plan 74yo female with ESRD on PD nightly, T2DM, HTN, hyperlipidemia, CAD s/p LAD stent 2023, anemia of chronic disease, PAD, prior DVT, and DOTTIE (untreated) who presents from home with concerns for worsening left heel & ankle infection. Dr Contreras was hospitalized at [facility] from 02/16 to 02/23 for distal LLE cellulitis. She did have a known left heel pressure ulcer during that hospitalization and was treated with optifoam. She was discharged to [facility] and remained at [facility] until 03/24. Per records she was discharged to [facility] on IV Unasyn with IV daptomycin, and finished her antibiotic course for the LLE cellulitis with augmentin/zyvox while rehabbing. Saw podiatry in the outpatient setting on 03/29 and her left heel ulcer was found to be much worse with evidence of infection. Admission was advised by podiatry for wound care, antibiotics, etc. #severe left heel full thickness decubitus pressure ulcer with cellulitis - present on admission - -left heel ulcer was present during January admission but has worsened since that time - see photos in admission H/P -remains on IV zosyn/daptomycin -culture from L foot with bacteroides only -blood cx's negative -d/c daptomycin; can resume statin -switch IV Zosyn to Augmentin (total 10 days, last dose 04/10) -CT left foot without osteomyelitis of calcaneus or any deeper infection/abscess -LLE arterial duplex study highly suggestive of significant PAD -CTA a/p aorta with run-off - severe b/l PAD starting at both iliacs and running into both legs -b/l Rooke boots ordered for both legs/feet -appreciate Dr Herrera's consult/recs from vascular surgery --> Dr Herrera spoke with patient and no good targets to intervene thus arteriogram and any surgery NOT recommended at this time -appreciate Dr Christiano Galloway's consult - he advised Santyl's to the left heel daily along with dressing changes -allow weight-bearing but toe touch only, but defer ultimate weight-bearing recs to Dr Galloway and Dr Herrera #uncontrolled T2DM - -a1c 7.3% in 01/2025 but may not be accurate due to chronic anemia -BSG was >500 upon presentation on 03/30 -continues to drink sugar-sweetened drinks; we have discussed this in detail, patient finds it difficult to stop this practice -her ability to heal the L foot wound will be very difficult without better glycemic control -cont basal-bolus insulins; converted Tresiba to lantus; novolog for carb coverage & correction -she had been refusing BSG checks -- just wants to use her Dexcom -hospital policy is that she can use her Dexcom but she will need to self- administer her insulins and will need once daily BSG checks to ensure glucometer & Dexcom are congruent -DM diet #ESRD on PD - -appreciate [facility] [place] -PD at - managed by nephro #coccygeal pressure ulcer, stage 3 - present on admission - -wound care consult requested and recs appreciated #venous ulcer of right leg - present on admission - -wound care consult appreciated -Aquacel Ag, Optifoam #deep tissue injury sacral/buttock area - -frequent turning, offloading, etc. #PAD - -arterial duplex study of LLE shows significant PAD below the knee -vascular surgery consult by Dr Herrera appreciated -they advised CTA abd/pelvis aorta with run-off -- see discussion above #CAD with prior LAD stent - -follows with Dr Kumar, [facility] Cardiology -no ischemic symptoms at this time -cont plavix -cont meto succ -resume statin since daptomycin will be stopped #HTN - -cont meto succ -cont furosemide BID -BPs labile -- meto succ to 25mg increased to BID #hyponatremia - -135 today - resolved #hypokalemia - -resolved -cont K supplementation - this is a chronic med for her - but lower to 20meq/day #hypomagnesemia - -replaced and improved -most mag levels over the last few years have been low -thus, cont mag oxide for maintenance -mag level 04/04 - 2 #anemia of chronic disease - -transferrin sat was 30% in 01/2025 and ferritin was quite high -B12/folate levels 2023 were wnl -H/H remain stable #blepharitis b/l - -erythromycin eye ointment b/l eyes at HS cont PT/OT appreciate vascular surgery, nephrology, PT, OT, wound care consults VTE Prophylaxis - heparin 5000 SQ BID Disposition - [facility], medically stable for discharge but patient refused transfer today, will transfer to med/surg Admission and Anticipated Discharge Date Admission Date: March 30, 2025 Subjective Feels worse today after being seen by physical therapy. Discussed no additional treatment needed in the inpatient setting. Reports wanting to rest for another day and declined transfer to [facility] today. Physical Exam Respiratory: normal respiratory effort; no respiratory distress Cardiovascular: Rate/Rhythm: regular rate and regular rhythm Heart Sounds: + murmur (systolic) Skin: wrapped left heel, dressing not removed but no cellulitis coming from this Results & Data Results & Data Vital Signs (Past 12 Hours) Vital Signs Temp Pulse Pulse Pulse Resp BP Pulse Ox 04/05/25 16:28 80 04/05/25 15:45 36.7 C 78 18 165/60 H 98 04/05/25 12:00 36.9 C 78 22 138/62 97 04/05/25 11:21 75 04/05/25 08:45 136/66 04/05/25 08:20 80 19 196/95 H 97 04/05/25 08:13 36.8 C 89 16 O2 Del Method 04/05/25 16:28 04/05/25 15:45 Room Air 04/05/25 12:00 Room Air 04/05/25 11:21 04/05/25 08:45 04/05/25 08:20 Room Air 04/05/25 08:13 PG Care Time/CCT Total # of Minutes Spent Total Time Spent with Patient: Total time spent is greater than 50% in coordination of care (as documented) at patient's floor/unit and/or counseling patient: Coding Level of Care Code 35440 SUB INP/OBS CARE 2/35MIN Diagnoses Cellulitis of foot, left L03.116 Decubitus ulcer, heel, left, unstageable L89.620 Pressure injury of deep tissue of left buttock L89.326 Elevated lactic acid level R79.89 Pressure ulcer of coccygeal region, stage 3 L89.153 ESRD on peritoneal dialysis N18.6; Z99.2 Anemia D64.9 Anemia type: unspecified type Essential hypertension I10 Hypertension type: essential hypertension Hyponatremia E87.1 Hypokalemia E87.6 CAD (coronary artery disease) I25.10 History of DVT (deep vein thrombosis) Z86.718 Uncontrolled type 2 diabetes mellitus with hyperglycemia E11.65 Venous ulcer of right leg I83.019; L97.919 PAD (peripheral artery disease) I73.9 Spigelian hernia K43.9 Peritoneal cavity free air K66.8 (7) Anemia Anemia type: unspecified type Qualified Code(s): D64.9 - Anemia, unspecified (8) Hypertension Hypertension type: essential hypertension Qualified Code(s): I10 - Essential (primary) hypertension
--- NOTE | 2025-04-06 09:50 | Nephrology Progress Note ---
Date of Service April 06, 2025 Assessment & Plan (1) ESRD (end stage renal disease): (2) Hypertension: (3) Anemia: (4) Cellulitis of left lower extremity from knee to ankle: (5) Ulcer of left heel: Plan 8-fdrd-cxm-year-old female with ESKD on PD (EDW 78kg). Admitted with worsening left heel & ankle infection. She was hospitalized from 02/16 to 02/23 for distal LLE cellulitis and left heel pressure ulcer treated with optifoam and was was discharged to [facility] and remained at [facility] until 03/24. She completed a course of IV Unasyn with IV daptomycin, and finished her antibiotic course for the LLE cellulitis with augmentin/zyvox while at [facility]. She was admitted on 03/29/2025 after she was noted to have worsening of left heel ulcer and evidence of infection during outpatient podiatry appointment. Currently she is on daptomycin and Zosyn. MRI was negative for osteomyelitis. CT angiogram of aorta and runoff blood vessel on 04/02/2025 showed extensive atherosclerotic disease and stenosis involving all intra- abdominal and lower extremity vasculature but not a candidate for any intervention as per vascular. Has been having peritoneal dialysis regularly, overnight she has been having UF about 2.2 L on Delflex 2.5%. Hb stable, last T sat normal. --continue PD tonight with current PD prescription, UF has been decent. Order given to [facility] dialysis nurse. --Epogen 62911 units x 1 dose given on 04/03/25 --continue Lasix 80 mg bid --Right arm nephrology precaution, dose medications for eGFR less than 10 --possible DC to Rehab this afternoon Admission and Anticipated Discharge Date Admission Date: March 30, 2025 Roman Dyson was seen and evaluated this morning. She reports left heel pain improved. Had 2.2 L UF with PD overnight, tolerated well. Electrolyte acceptable. Blood pressure has been fair. Waiting to go to [facility] for rehab Review of Systems Review of Systems: Detail ROS was otherwise unremarkable. Physical Exam Constitutional: WD/WN, vitals as above + ill appearing; no acute distress Respiratory: no respiratory distress Auscultation: lungs clear to auscultation bilaterally Cardiovascular: Rate/Rhythm: regular rate and regular rhythm Extremities: + AV fistula (with bruit, aneurysm); no edema Skin: + turgor decreased Neurologic: no focal motor deficits Psychiatric: Orientation: alert and oriented x 3 Results & Data Vital Signs (Past 12 Hours) Vital Signs Temp Pulse Pulse Resp BP Pulse Ox O2 Del Method 04/06/25 08:05 36.6 C 72 18 04/06/25 08:00 36.6 C 72 18 146/76 H 94 Room Air 04/06/25 07:36 Room Air PG Care Time/CCT Total # of Minutes Spent Total Time Spent with Patient: Total time spent is greater than 50% in coordination of care (as documented) at patient's floor/unit and/or counseling patient: Coding Level of Care Code 40081 SUB INP/OBS CARE 2/35MIN Diagnoses ESRD (end stage renal disease) N18.6 Essential hypertension I10 Hypertension type: essential hypertension Anemia D64.9 Cellulitis of left lower extremity from knee to ankle L03.116 Ulcer of left heel L97.429 (2) Hypertension Hypertension type: essential hypertension Qualified Code(s): I10 - Essential (primary) hypertension
[2025-04-06 11:52] VITALS: BP 105/35; TEMP 98.6; O2SAT 96
--- NOTE | 2025-04-06 13:43 | Discharge Summary ---
Discharge Summary Date of Service April 06, 2025 Principal Dx & Hospital Course #1 = Principal Diagnosis (1) Cellulitis of foot, left: (2) Decubitus ulcer, heel, left, unstageable: (3) Pressure injury of deep tissue of left buttock: (4) Elevated lactic acid level: (5) Pressure ulcer of coccygeal region, stage 3: (6) ESRD on peritoneal dialysis: (7) Anemia: (8) Hypertension: (9) Hyponatremia: (10) Hypokalemia: (11) CAD (coronary artery disease): (12) History of DVT (deep vein thrombosis): (13) Uncontrolled type 2 diabetes mellitus with hyperglycemia: (14) Venous ulcer of right leg: (15) PAD (peripheral artery disease): (16) Spigelian hernia: (17) Peritoneal cavity free air: Kristi Valdeza Ben is a 74 year old female admitted to [facility] from March 30 - 2024 due to unstageable left heel ulcer with surrounding cellulitis. She was treated with intravenous daptomycin and Zosyn. Wound culture grew bacteroides and antibiotics were switched to Augmentin on discharge. She was seen by podiatry and did not recommend debridement at this time but to continue Santyl and dry sterile dressing daily and indefinite offloading using boots. Vascular surgery did not recommend any intervention at this time but noted significant peripheral artery disease likely to effect her healing. She is high risk of infection returning. She was also noted to have a stage 3 pressure sacral ulcer present on admission. She will continue with local wound care for this per wound care instructions. She was discharged to inpatient rehabilitation. Notes For Next Care Provider Follow up with podiatry on discharge for ongoing management of her heel ulcer. Medication Changes From Visit Magnesium oxide added for hypomagnesemia Increase metoprolol succinate for hypertension Added Augmentin Admission HPI Per Admitting Provider 74yo female with ESRD on PD nightly, T2DM, HTN, hyperlipidemia, CAD s/p LAD stent 2023, anemia of chronic disease, PAD, prior DVT, and DOTTIE (untreated) who presents from home with concerns for worsening left heel & ankle infection. Dr Contreras was hospitalized at [facility] from 02/16 to 02/23 for distal LLE cellulitis. She did have a known left heel pressure ulcer during that h ospitalization and was treated with optifoam. She was discharged to [facility] and remained at [facility] until 03/24. Per records she was discharged to [facility] on IV Unasyn with IV daptomycin, and finished her antibiotic course for the LLE cellulitis with augmentin/zyvox. She reports that after getting home from [facility] she had mild discomfort in her left foot/heel. She also has discomfort over a coccygeal pressure ulcer. She went to see Dr Christiano Galloway from podiatry in his clinic on 03/29 and after examining the left foot he strongly recommended he come to the ER for evaluation due to concerns of worsening heel ulcer with infection. She decided to stay home the night of 03/29 and performed her PD in typical fashion. Today, however, she finally came to the [facility] ER for evaluation. Upon presentation today she was borderline febrile at 37.6 degrees. Her main complaints for me were that of pain in the left foot/heel, pain in her sacral/coccygeal region, and feeling thirsty. She denied having any fevers or chills at home. During my admission assessment her BSG was >500. A review of her record shows that she follows closely with the [facility]ound [facility] clinic for a chronic right chand ulcer as well as the stage 3 coccygeal ulcer. Discharge Exam Respiratory normal respiratory effort; no respiratory distress Cardiovascular Rate/Rhythm: regular rate and regular rhythm Heart Sounds: + murmur (systolic) Discharge Plan Discharge Items Patient Disposition: Transfer Inpatient Rehab Fac Reason For Visit: SEPSIS, LEFT HEEL ULCER WITH CELLULITIS Discharge Diagnosis: Left heel ulcer with cellulitis Peripheral artery disease Condition on Discharge: Fair Activity: Resume your previous activity Non-emergency contact: Primary Care Provider Call non-emergency contact if: you have any medication questions and your symptoms worsen Follow-up/Referrals: Unruly Trujillo DO [Primary Care Provider] - Christiano Galloway DPM [Physician] - (Follow up heel ulcer) Diet: Dialysis Renal Addtl Attending Provider Instructions: You were admitted to [facility] from March 30 - 2024 due to left heel ulcer with surrounding cellulitis. You were treated with intravenous daptomycin and Zosyn. Wound culture grew bacteroides and antibiotics were switched to Augmentin. You were seen by podiatry and did not recommend debridement at this time but to continue Santyl and dry sterile dressing daily and indefinite offloading using boots. Vascular surgery did not recommend any intervention at this time but noted significant peripheral artery disease likely to effect your healing. You were also noted to have pressure sacral ulcer. Please continue with local wound care for this per wound care instructions. Metoprolol succinate was increased due to high blood pressure. Magnesium supplementation was started due to low levels. Please follow up with podiatry on discharge for ongoing management of your heel ulcer. Pending Studies at Discharge: No Stand-Alone Forms: My [facility] Skilled Items Patient informed of condition?: Yes DNR: No Discharge Level of Care: Acute rehab Communicable Disease: No Discharge Prognosis: Stable Lines: None Urinary Catheter: No Medications and DC Order Prescriptions: New amoxicillin-pot clavulanate [Augmentin] 500-125 mg tablet 1 tab PO BID 4 Days Qty: 8 0RF magnesium oxide 200 mg magnesium tablet 400 mg PO DAILY Qty: 60 0RF Continued (DME) pen needle, diabetic [BD Nicki 2nd Gen Pen Needle] 32 gauge x 5/32" needle See Rx Instructions .Route Qty: 100 11RF Rx Instructions: use to inject 3 times daily insulin degludec [Tresiba FlexTouch U-100] 100 unit/mL (3 mL) insulin pen 30 unit subcut HS Patient Comments: 25-30 units depending on blood glucose Rx Instructions: 25- 30 units pending BSG (DME) FreeStyle Kvng 3 Plus Sensor Device See Rx Instructions .Route Qty: 2 5RF Rx Instructions: change sensor Q15 D zolpidem 10 mg tablet 10 mg PO HS Qty: 30 2RF (DME) Dexcom G7 Sensor Device See Rx Instructions .ROUTE .MEDSUPPLY Qty: 3 11RF Rx Instructions: change sensor every 10 days cholecalciferol (vitamin D3) 62.5 mcg (2,500 unit) capsule 62.5 mcg PO QPM B12 Active 1,000 mcg tablet,chewable 1,000 mcg PO QPM (DME) lancets [Accu-Chek Fastclix Lancet Drum] misc See Dose Instructions .ROUTE .MEDSUPPLY Qty: 50 Rx Instructions: As directed (DME) Accu-Chek SmartView Test Strip Strip See Rx Instructions .ROUTE .MEDSUPPLY Dose Instruction: As directed Rx Instructions: USE 1 TEST STRIP DAILY PRN (DME) Walking Cane Misc See Rx Instructions .Route Qty: 1 0RF Rx Instructions: As directed cinacalcet [Sensipar] 30 mg tablet 30 mg PO QPM calcitriol 0.25 mcg capsule 0.5 mcg PO QPM Triphrocaps 1 mg capsule 1 cap PO QPM clopidogrel 75 mg tablet 75 mg PO QPM furosemide 80 mg tablet 80 mg PO BID potassium chloride 10 mEq tablet extended release 40 meq PO QPM insulin aspart U-100 [Novolog FlexPen U-100 Insulin] 100 unit/mL (3 mL) insulin pen 8 unit subcut AC Rx Instructions: patient only eats twice a day buspirone 7.5 mg tablet 7.5 mg PO QPM Qty: 0 0RF pregabalin [Lyrica] 25 mg capsule 25 mg PO .2-3 X DAILY triamcinolone acetonide 0.1 % ointment 1 applic TOPICAL BID PRN (Reason: skin issues) rosuvastatin [Crestor] 40 mg tablet 40 mg PO PM Hold Instructions: Resume on 03/06/25. Changed metoprolol succinate 25 mg tablet extended release 24 hr 25 mg PO BID Qty: 90 3RF Rx Instructions: Monitors BP - holds occasionally if "too low"_ Systolic <100 Discharge Orders: Discharge Order (Routine); Ordered 04/06/25 Ordered By: Juan Carlos Smith Admission Data Admit Date/Time: 03/30/25 18:30 Attending Provider: Juan Carlos Smith Admit Provider: Juan Carlos Jacob Primary Care Provider: Unruly Trujillo Other Providers: [facility]; Juan Carlos Jacob; Christiano Galloway; James Bragg; Viktor Herrera; Anibal Ayala Other Interventions: Discharge Summary Assessment (RN) Last Done: 04/06/25 15:26 Hospital Stay Data Consultations 03/30/25 17:18 ED Decision to Admit Stat 03/30/25 18:30 Consult Podiatry Routine 03/30/25 20:40 Consult Nephrology Routine 03/31/25 11:06 Consult Vascular Surgery Routine 04/02/25 05:16 Consult General Surgery Routine Diagnostic Imagining Performed 03/30/25 18:31 CT foot LT wo con Urgent Impression: Soft tissue wound at the heel without convincing evidence for underlying osteomyelitis. However MRI is more sensitive. US arterial duplex LE LT Routine IMPRESSION: 1. Extensive atherosclerotic calcification throughout the left lower extremity with monophasic waveforms from the distal femoral artery. No occlusions of the level of the popliteal artery. 2. The left anterior tibial artery demonstrates a peak systolic velocity approximately 44 cm/sec with monophasic waveforms. The distal left anterior tibial artery demonstrates markedly elevated velocities of 190 cm/sec, consistent with moderate, greater than 50% luminal stenosis. The left posterior tibial and peroneal arteries are occluded. 04/01/25 09:38 CTA abd aorta runof w con [CT ang AA runof w inc wo ifdon] Urgent IMPRESSION: 1. A moderate sized left spigelian hernia contains a nonobstructed loop of large bowel. Within the hernia sac there is a trace amount of free fluid and a few locules of extraluminal air which may be from instrumentation such as air in troduced through the peritoneal catheter. A perforated viscus considered less likely. 2. Small pleural effusions with anasarca and trace ascites. 3. Extensive atherosclerosis with multifocal high-grade stenoses of the mesenteric vessels, iliac arteries and arteries of the lower legs as above. 4. Dense calcification involving the arteries of the lower legs limits the study. 5. Incidental findings as above. Pending Results Patient Have Any Pending Studies at Discharge: No Discharge Instructions Given to Patient (Per Discharging Provider) You were admitted to [facility] from March 30 - 2024 due to left heel ulcer with surrounding cellulitis. You were treated with intravenous daptomycin and Zosyn. Wound culture grew bacteroides and antibiotics were switched to Augmentin. You were seen by podiatry and did not recommend debridement at this time but to continue Santyl and dry sterile dressing daily and indefinite offloading using boots. Vascular surgery did not recommend any intervention at this time but noted significant peripheral artery disease likely to effect your healing. You were also noted to have pressure sacral ulcer. Please continue with local wound care for this per wound care instructions. Metoprolol succinate was increased due to high blood pressure. Magnesium supplementation was started due to low levels. Please follow up with podiatry on discharge for ongoing management of your heel ulcer. Total Time Total Time Spent Total Time Spent (In Minutes): 35 Coding Level of Care Code 39578 INP/OBS DISCH >30 MIN Diagnoses Cellulitis of foot, left L03.116 Decubitus ulcer, heel, left, unstageable L89.620 Pressure injury of deep tissue of left buttock L89.326 Elevated lactic acid level R79.89 Pressure ulcer of coccygeal region, stage 3 L89.153 ESRD on peritoneal dialysis N18.6; Z99.2 Anemia D64.9 Anemia type: unspecified type Essential hypertension I10 Hypertension type: essential hypertension Hyponatremia E87.1 Hypokalemia E87.6 CAD (coronary artery disease) I25.10 History of DVT (deep vein thrombosis) Z86.718 Uncontrolled type 2 diabetes mellitus with hyperglycemia E11.65 Venous ulcer of right leg I83.019; L97.919 PAD (peripheral artery disease) I73.9 Spigelian hernia K43.9 Peritoneal cavity free air K66.8
[2025-04-06 15:27] VITALS: PULSE 77
[2025-04-06] MEDS ORDERED: AMOXICILLIN/CLAVULANATE 500 MG TAB PO SCH (17:00)
== END 2025-04-06 15:28 | DRG 299 ==
LOC: ED 14:56 → 2E 18:30 → SUATTDRO 18:30 → 2E 20:07